=== PATIENT | female | born 1955 | race Caucasian/White ===

== ENCOUNTER 2018-01-25 14:08 | Emergency (ER) | payer MEDICARE ==
[2018-01-25] MEDS ORDERED: Ondansetron 4 MG/2 ML SDV IVPUSH ONE (14:51)
[2018-01-25] MEDS ORDERED: Pantoprazole 80 MG in Sodium Chloride 0.9% 100 ML IV ONE (14:51)
--- NOTE | 2018-01-25 14:57 | EDM.PDOC ---
ED HPI GENERAL MEDICAL PROBLEM - General Chief Complaint: Gastrointestinal Problem Stated Complaint: WEAKNESS Time Seen by Provider: 01/25/18 14:40 Source of Information: Reports: Patient, Old Records History Limitations: Reports: No Limitations - History of Present Illness INITIAL COMMENTS - FREE TEXT/NARRATIVE: Zuleika comes to [facility] ED from the Clinic with a 9 day hx of persistent nausea and vomiting, some intermittent epigastric pain, and 6# wt loss. There is no known exposure, no fever, chills or sweats. She has also had some intermittent diarrhea, without BRB. There is a remote hx of ETOHism, but patient reports no ETOH in years. There is also a remote hx of PUD and pancreatitis. She has tried no meds. - Related Data Allergies Allergy/AdvReac Type Severity Reaction Status Date / Time Sulfa (Sulfonamide Allergy Rash Verified 01/25/18 14:42 Antibiotics) Home Meds: Home Meds Acamprosate [Campral] 666 mg PO BID 10/09/13 [History] Calcium Carbonate/Vitamin D3 [Calcium 600 + Vit D 400 Softgl] 1 tab PO DAILY [History] Furosemide [Lasix] 20 mg PO BID 10/09/13 [History] Multivitamin [Multi-Vitamin Daily] 1 tab PO DAILY 10/09/13 [History] Omeprazole 20 mg PO DAILY 10/09/13 [History] PARoxetine [Paxil] 40 mg PO DAILY 10/09/13 [History] Potassium Chloride 10 meq PO DAILY 10/09/13 [History] Past Medical History Gastrointestinal History: Reports: Pancreatitis, PUD Social & Family History - Tobacco Use Smoking Status *Q: Current Every Day Smoker Years of Tobacco use: 30 Packs/Tins Daily: 0.3 - Caffeine Use Caffeine Use: Reports: Coffee - Recreational Drug Use Recreational Drug Use: No ED ROS GENERAL - Review of Systems Review Of Systems: See Below Constitutional: Reports: Malaise, Weakness, Fatigue, Decreased Appetite, Weight Loss HEENT: Reports: No Symptoms Respiratory: Reports: No Symptoms Cardiovascular: Reports: No Symptoms Endocrine: Reports: No Symptoms GI/Abdominal: Reports: Abdominal Pain, Diarrhea, Decreased Appetite, Nausea, Vomiting : Reports: No Symptoms Musculoskeletal: Reports: No Symptoms Skin: Reports: No Symptoms Neurological: Reports: No Symptoms Psychiatric: Reports: No Symptoms Hematologic/Lymphatic: Reports: No Symptoms Immunologic: Reports: No Symptoms ED EXAM, GI/ABD - Physical Exam Exam: See Below Exam Limited By: No Limitations General Appearance: Alert, WD/WN, Anxious, Mild Distress, Thin Eyes: Bilateral: Normal Appearance, EOMI Ears: Normal External Exam Nose: Normal Inspection Throat/Mouth: Normal Lips, Normal Oropharynx, Normal Voice, No Airway Compromise Head: Normocephalic Neck: Normal Inspection, Supple, Non-Tender, Full Range of Motion Respiratory/Chest: No Respiratory Distress, Lungs Clear, No Accessory Muscle Use , Chest Non-Tender Cardiovascular: Normal Peripheral Pulses, Regular Rate, Rhythm, No Edema, No Murmur GI/Abdominal Exam: Normal Bowel Sounds, Soft, No Organomegaly, No Distention, No Mass, Tender (epigastrium) (Female) Exam: Deferred Rectal (Female) Exam: Deferred Back Exam: Normal Inspection Extremities: Normal Inspection, Normal Range of Motion, Non-Tender, No Pedal Edema Neurological: Alert, Oriented, CN II-XII Intact, No Motor/Sensory Deficits Psychiatric: Normal Affect, Anxious Skin Exam: Warm, Dry, Intact, Normal Color Lymphatic: No Adenopathy Course - Vital Signs Text/Narrative:: Following assessment at the [facility] ED, efforts to start a peripheral IV took over 2+ hours to obtain IV access in the L foot with assistance from [employer]. Zuleika Lamb was administered 2L NS w 20 meq KCl over the next 4 hours, with Protonix 80 mg IV successfully. I administered Tramadol 50mg tab x 2 for abdominal pain which improved, and another KCl 20 meq soln po successfully. No further emesis was observed during visit. Lab results included CBC 10.5 gm, WBC 5900, plts normal; Na 134, K 2.6, BUN 31, Cr 0.9, Amylase 75. A follow up K 3.8 meq/l was reported before discharge. Last Recorded V/S: Last Vital Signs Temp 36.4 C 01/25/18 21:55 Pulse 86 01/25/18 21:55 Resp 17 01/25/18 21:55 BP 98/50 L 01/25/18 21:55 Pulse Ox 100 01/25/18 21:55 - Orders/Labs/Meds Orders: Active Orders 24 hr Category Date Time Status DRUG SCREEN, URINE ALERE [URCHEM] Stat Lab 01/25/18 19:51 Ordered UA W/MICROSCOPIC [URIN] Stat Lab 01/25/18 19:51 Ordered Peripheral IV Insertion Adult [OM.PC] Routine Oth 01/25/18 14:49 Ordered Labs: Laboratory Tests 01/25/18 01/25/18 01/25/18 Range/Units 15:20 15:20 19:51 WBC 5.9 (4.5-12.0) X10-3/uL RBC 3.27 (3.23-5.20) x10(6)uL Hgb 10.5 L (11.5-15.5) g/dL Hct 31.0 (30.0-51.3) % MCV 94.7 (80-96) fL MCH 32.2 (27.7-33.6) pg MCHC 34.0 (32.2-35.4) g/dL RDW 14.4 (11.5-15.5) % Plt Count 245 (125-369) X10(3)uL MPV 8.3 (7.4-10.4) fL Neut % (Auto) 54.1 (46-82) % Lymph % (Auto) 32.2 (13-37) % Clinch % (Auto) 9.6 (4-12) % Eos % (Auto) 3 (1.0-5.0) % Baso % (Auto) 2 (0-2) % Neut # (Auto) 3.1 (1.6-8.3) # Lymph # (Auto) 1.9 (0.6-5.0) # Clinch # (Auto) 0.6 (0.0-1.3) # Eos # (Auto) 0.2 (0.0-0.8) # Baso # (Auto) 0.1 (0.0-0.2) # Sodium 134 L (135-145) mmol/L Potassium 2.6 L* (3.5-5.3) mmol/L Chloride 91 L (100-110) mmol/L Carbon Dioxide 36 H (21-32) mmol/L BUN 31 H (7-18) mg/dL Creatinine 0.9 (0.55-1.02) mg/dL Est Cr Clr Drug Dosing 36.65 mL/min Estimated GFR (MDRD) > 60 (>60) BUN/Creatinine Ratio 34.4 H (9-20) Glucose 103 (80-116) mg/dL Calcium 9.8 (8.6-10.2) mg/dL Total Bilirubin 0.4 (0.1-1.3) mg/dL AST 84 H (5-25) IU/L ALT 81 H (12-36) U/L Alkaline Phosphatase 72 (56-112) IU/L Total Protein 7.2 (6.0-8.0) g/dL Albumin 4.1 (3.2-4.6) g/dL Globulin 3.1 g/dL Albumin/Globulin Ratio 1.3 Amylase 75 (25-115) U/L Urine Color Yellow (YELLOW) Urine Appearance Clear (CLEAR) Urine pH 6.0 (5.0-6.5) Ur Specific [place] 1.010 (1.010-1.025) Urine Protein Negative (NEGATIVE) mg/dL Urine Glucose (UA) Normal (NEGATIVE) mg/dL Urine Ketones Negative (NEGATIVE) mg/dL Urine Occult Blood Negative (NEGATIVE) Urine Nitrite Negative (NEGATIVE) Urine Bilirubin Small H (NEGATIVE) Urine Urobilinogen Normal (NEGATIVE) mg/dL Ur Leukocyte Esterase Moderate H (NEGATIVE) Urine RBC 0-5 (0) Urine WBC 0-5 (0) Ur Squamous Epith Cells Moderate H (NS,R,O) Urine Bacteria Few H (NS) Urine Opiates Screen (NEGATIVE) Ur Oxycodone Screen (NEGATIVE) Ur Propoxyphene Screen (NEGATIVE) Ur Barbituates Screen (NEGATIVE) Ur Tricyclics Screen (NEGATIVE) Ur Phencyclidine Scrn (NEGATIVE) Ur Amphetamine Screen (NEGATIVE) Urine MDMA Screen (NEGATIVE) U Benzodiazepines Scrn (NEGATIVE) U Cocaine Metab Screen (NEGATIVE) U Marijuana (THC) Screen (NEGATIVE) 01/25/18 01/25/18 Range/Units 19:51 21:20 WBC (4.5-12.0) X10-3/uL RBC (3.23-5.20) x10(6)uL Hgb (11.5-15.5) g/dL Hct (30.0-51.3) % MCV (80-96) fL MCH (27.7-33.6) pg MCHC (32.2-35.4) g/dL RDW (11.5-15.5) % Plt Count (125-369) X10(3)uL MPV (7.4-10.4) fL Neut % (Auto) (46-82) % Lymph % (Auto) (13-37) % Clinch % (Auto) (4-12) % Eos % (Auto) (1.0-5.0) % Baso % (Auto) (0-2) % Neut # (Auto) (1.6-8.3) # Lymph # (Auto) (0.6-5.0) # Clinch # (Auto) (0.0-1.3) # Eos # (Auto) (0.0-0.8) # Baso # (Auto) (0.0-0.2) # Sodium (135-145) mmol/L Potassium 3.8 D (3.5-5.3) mmol/L Chloride (100-110) mmol/L Carbon Dioxide (21-32) mmol/L BUN (7-18) mg/dL Creatinine (0.55-1.02) mg/dL Est Cr Clr Drug Dosing mL/min Estimated GFR (MDRD) (>60) BUN/Creatinine Ratio (9-20) Glucose (80-116) mg/dL Calcium (8.6-10.2) mg/dL Total Bilirubin (0.1-1.3) mg/dL AST (5-25) IU/L ALT (12-36) U/L Alkaline Phosphatase (56-112) IU/L Total Protein (6.0-8.0) g/dL Albumin (3.2-4.6) g/dL Globulin g/dL Albumin/Globulin Ratio Amylase (25-115) U/L Urine Color (YELLOW) Urine Appearance (CLEAR) Urine pH (5.0-6.5) Ur Specific [place] (1.010-1.025) Urine Protein (NEGATIVE) mg/dL Urine Glucose (UA) (NEGATIVE) mg/dL Urine Ketones (NEGATIVE) mg/dL Urine Occult Blood (NEGATIVE) Urine Nitrite (NEGATIVE) Urine Bilirubin (NEGATIVE) Urine Urobilinogen (NEGATIVE) mg/dL Ur Leukocyte Esterase (NEGATIVE) Urine RBC (0) Urine WBC (0) Ur Squamous Epith Cells (NS,R,O) Urine Bacteria (NS) Urine Opiates Screen Negative (NEGATIVE) Ur Oxycodone Screen Negative (NEGATIVE) Ur Propoxyphene Screen Negative (NEGATIVE) Ur Barbituates Screen Negative (NEGATIVE) Ur Tricyclics Screen Positive H (NEGATIVE) Ur Phencyclidine Scrn Negative (NEGATIVE) Ur Amphetamine Screen Negative (NEGATIVE) Urine MDMA Screen Negative (NEGATIVE) U Benzodiazepines Scrn Negative (NEGATIVE) U Cocaine Metab Screen Negative (NEGATIVE) U Marijuana (THC) Screen Negative (NEGATIVE) Meds: Medications Discontinued Medications Generic Name Dose Route Start Last Admin Trade Name Freq PRN Reason Stop Dose Admin Pantoprazole Sodium 80 mg/ 100 mls @ 200 mls/hr 01/25/18 14:51 01/25/18 18:15 Sodium Chloride IV 01/25/18 15:20 200 mls/hr .BOLUS ONE Administration Sodium Chloride 2,000 mls @ 999 mls/hr 01/25/18 15:00 Normal Saline IV ASDIRECTED ROMEL Potassium Chloride/Sodium Chloride 1,000 mls @ 999 mls/hr 01/25/18 16:15 08/02 18:05 Normal Saline With 20 Meq Kcl IV 999 mls/hr ASDIRECTED ROMEL Administration Potassium Chloride/Sodium Chloride 1,000 mls @ 999 mls/hr 01/25/18 20:15 08/02 20:20 Normal Saline With 20 Meq Kcl IV 999 mls/hr ASDIRECTED ROMEL Administration Ondansetron HCl 8 mg 01/25/18 14:51 01/25/18 18:11 Zofran IVPUSH 01/25/18 14:52 8 mg ONETIME ONE Administration Potassium Chloride 20 meq 01/25/18 19:52 01/25/18 19:57 Potassium Chloride Solution PO 01/25/18 19:53 20 meq ONETIME ONE Administration Sodium Chloride 10 ml 01/25/18 14:49 01/25/18 18:12 Saline Flush FLUSH 10 ml ASDIRECTED PRN Administration Keep Vein Open Tramadol HCl 50 mg 01/25/18 16:01 01/25/18 16:32 Ultram PO 01/25/18 16:02 50 mg ONETIME ONE Administration Tramadol HCl 50 mg 01/25/18 19:51 01/25/18 19:57 Ultram PO 01/25/18 19:52 50 mg ONETIME ONE Administration Departure - Departure Time of Disposition: 21:45 Disposition: Home, Self-Care 01 Condition: Good Clinical Impression: Hypokalemia Gastritis Qualifiers: Gastritis type: unspecified gastritis Chronicity: unspecified Gastritis bleeding: without bleeding Qualified Code(s): K29.70 - Gastritis, unspecified, without bleeding - Discharge Information Instructions: Gastritis, Adult, [id number], Hypokalemia Referrals: Aden Lemus MD [Primary Care Provider] - Forms: ED Department Discharge Additional Instructions: Take your Omeprazole as ordered. See primary care provider as necessary. - Problem List & Annotations (1) Hypokalemia SNOMED Code(s): 15648854 Code(s): E87.6 - HYPOKALEMIA Status: Acute Annotation/Comment:: Zuleika Lamb can resume KCl 10 meq tabs qd. (2) Gastritis SNOMED Code(s): 8324532 Code(s): K29.70 - GASTRITIS, UNSPECIFIED, WITHOUT BLEEDING Status: Acute Annotation/Comment:: Zuleika Lamb should continue Omeperazole 20 mg qd as directed. Qualifiers: Gastritis type: unspecified gastritis Chronicity: unspecified Gastritis bleeding: without bleeding Qualified Code(s): K29.70 - Gastritis, unspecified , without bleeding - Problem List Review Problem List Initiated/Reviewed/Updated: Yes - My Orders Last 24 Hours: My Active Orders 01/25/18 14:49 Peripheral IV Insertion Adult [OM.PC] Routine 01/25/18 19:51 DRUG SCREEN, URINE ALERE [URCHEM] Stat UA W/MICROSCOPIC [URIN] Stat - Assessment/Plan Last 24 Hours: My Active Orders 01/25/18 14:49 Peripheral IV Insertion Adult [OM.PC] Routine 01/25/18 19:51 DRUG SCREEN, URINE ALERE [URCHEM] Stat UA W/MICROSCOPIC [URIN] Stat Plan: Follow up with PCP.
[2018-01-25] MEDS ORDERED: Sodium Chloride 0.9% 2,000 ML IV SCH (15:00)
[2018-01-25] MEDS: Sodium Chloride 0.9% 10 ML Syringe FLUSH PRN ×2 (15:00→18:12)
[2018-01-25] MEDS ORDERED: traMADol 50 MG Tab PO ONE ×2 (16:01→19:51)
[2018-01-25] MEDS ORDERED: NS + KCl 20mEq/L 1,000 ML IV SCH ×2 (16:15→20:15)
[2018-01-25] MEDS ORDERED: Potassium Chloride 10% 20 MEQ/15 ML Soln 15 ML UD Cup PO ONE (19:52)
[2018-01-25 21:57] VITALS: BP 98/50
== END 2018-01-25 21:55 | disposition home or self-care (01) ==
LOC: FB.ED 14:08
DX: E87.6 Hypokalemia (principal); K29.70 Gastritis, unspecified, without bleeding; F17.210 Nicotine dependence, cigarettes, uncomplicated; Z88.2 Allergy status to sulfonamides; Z79.899 Other long term (current) drug therapy
CPT/HCPCS: 36410; 36415; 80053; 80305; 81001; 82150; 84132; 85025; 96365; 96366; 96368; 96375; 99284; A9270; C9113; J2405; J3480; J7030; J7050

== ENCOUNTER 2018-02-21 21:04 | Emergency (ER) | payer MEDICARE ==
--- NOTE | 2018-02-21 21:21 | EDM.PDOCBH ---
ED HPI GENERAL MEDICAL PROBLEM - General Stated Complaint: GENERAL Time Seen by Provider: 02/21/18 21:04 Source of Information: Reports: Patient, EMS History Limitations: Reports: Altered Mental Status - History of Present Illness INITIAL COMMENTS - FREE TEXT/NARRATIVE: 62 y.o.w.f with a h/o chronic ETOH abuse, came to the ed by EMS after her apartment neighbor called the police her room smells. Police arrived at her home and found the her apartment very hot and in disarray. EMS was called. on arrival, Pt had tardive diskinesia, was Ox3 and did not know why she was brought to the ed. Pt stated she was drinking heavily ETOH in the past. She has no family. BP 113/90 RR 23 Temp 36.8 Pulse ox 98% pulse 123. Onset Date: 02/21/18 Onset Time: 15:00 Location: Reports: Generalized Quality: Reports: Ache, Other (restless) Severity: Moderate Improves with: Reports: None Worsens with: Reports: Medication Context: Reports: Other (chronic ETOH abuse, poor food intake) Associated Symptoms: Reports: Weakness - Related Data Allergies Allergy/AdvReac Type Severity Reaction Status Date / Time Sulfa (Sulfonamide Allergy Rash Verified 01/25/18 14:42 Antibiotics) Home Meds: Home Meds Acamprosate [Campral] 666 mg PO BID 10/09/13 [History] Calcium Carbonate/Vitamin D3 [Calcium 600 + Vit D 400 Softgl] 1 tab PO DAILY [History] Furosemide [Lasix] 20 mg PO BID 10/09/13 [History] Multivitamin [Multi-Vitamin Daily] 1 tab PO DAILY 10/09/13 [History] Omeprazole 20 mg PO DAILY 10/09/13 [History] PARoxetine [Paxil] 40 mg PO DAILY 10/09/13 [History] Potassium Chloride 10 meq PO DAILY 10/09/13 [History] Past Medical History HEENT History: Reports: Impaired Vision Cardiovascular History: Reports: Other (See Below) Other Cardiovascular History: states has irregular HR at times Respiratory History: Reports: Bronchitis, Recurrent Gastrointestinal History: Reports: Pancreatitis, PUD Other Gastrointestinal History: "prolapsed colon" Neurological History: Reports: Other (See Below) Other Neuro History: DT's Psychiatric History: Reports: Addiction, Anxiety, Depression, Hallucinations, Other (See Below) Other Psychiatric History: drug and alcohol addiction Hematologic History: Reports: Other (See Below) Other Hematologic History: leukopenia - Past Surgical History GI Surgical History: Reports: Colonoscopy, EGD Social & Family History - Caffeine Use Caffeine Use: Reports: Coffee ED ROS GENERAL - Review of Systems Review Of Systems: Unable To Obtain (poor historian) ED EXAM, BEHAVIORAL HEALTH - Physical Exam Exam: See Below Exam Limited By: Altered Mental Status General Appearance: Alert, Mild Distress, Cachetic Eye Exam: Bilateral Eye: Normal Inspection Ears: Normal External Exam Nose: Normal Inspection Throat/Mouth: Normal Lips, Normal Voice, No Airway Compromise, Other (dry mucosal mmebranes) Head: Atraumatic, Normocephalic Neck: Normal Inspection, Supple, Non-Tender, Full Range of Motion Respiratory/Chest: No Respiratory Distress, Lungs Clear, Normal Breath Sounds, Chest Non-Tender Cardiovascular: Normal Peripheral Pulses, Regular Rate, Rhythm, No Edema, No Gallop, No JVD, No Murmur, No Rub GI/Abdominal: Normal Bowel Sounds, Soft, Non-Tender, No Organomegaly, No Distention, No Abnormal Bruit, No Mass, Pelvis Stable (Female) Exam: Deferred Rectal (Female) Exam: Deferred Back Exam: Normal Inspection, Full Range of Motion Extremities: Normal Inspection, Normal Range of Motion, Non-Tender, No Pedal Edema Neurological: Alert, CN II-XII Intact, Normal Cognition, No Motor/Sensory Deficits, Oriented x 3 Psychiatric: Restless (Tardive diskinesia(?)) Skin Exam: Warm, Dry, Intact, Normal color, No rash COURSE, BEHAVIORAL HEALTH COMP - Course Vital Signs: Last Vital Signs Temp 36.8 C 02/21/18 21:05 Pulse 118 H 02/21/18 21:05 Resp 23 H 02/21/18 21:05 BP 113/90 02/21/18 21:05 Pulse Ox 99 02/21/18 21:05 62 y.o.w.f with a h/o chronic ETOH abuse, came to the ed by EMS after her apartment neighbor called the police her room smells. Police arrived at her home and found the her apartment very hot and in disarray. EMS was called. on arrival, Pt had tardive diskinesia, was Ox3 and did not know why she was brought to the ed. Pt stated she was drinking heavily ETOH in the past. She has no family. BP 113/90 RR 23 Temp 36.8 Pulse ox 98% pulse 123. PE: 62 y.o.w.f with dyskinesia body movements, H/O ETOH abuse, chronic, OX3 clinically dehydrated. No H/O DM Labs: WBC 6.5 HGB 9.3 HCT 29,3 INT 1.03 BMP nl ETOH 0.03 Glc 57 Ca 7.9 Impression: Chronic ETOH abuse, Dehydration, Hypoglycemia. Hypocalcemia, dyskinsia. Tx: NS, D50, food. Reexam: Pt was doing fine, ambulating independently accu check was 117 HR 107, Pt does not take any blood sugar lowering prescribed meds. Plan: D/C with instructions Orders, Labs, Meds: Active Orders 24 hr Category Date Time Status DRUG SCREEN, URINE ALERE [URCHEM] Stat Lab 02/21/18 23:30 Ordered UA W/MICROSCOPIC [URIN] Stat Lab 02/21/18 23:30 Ordered Laboratory Tests 02/21/18 02/21/18 02/21/18 Range/Units 21:35 21:35 21:35 WBC 6.4 (4.5-12.0) X10-3/uL RBC 3.15 L (3.23-5.20) x10(6)uL Hgb 9.3 L (11.5-15.5) g/dL Hct 29.3 L (30.0-51.3) % MCV 93.0 (80-96) fL MCH 29.6 (27.7-33.6) pg MCHC 31.8 L (32.2-35.4) g/dL RDW 14.6 (11.5-15.5) % Plt Count 353 (125-369) X10(3)uL MPV 7.1 L (7.4-10.4) fL Neut % (Auto) 68.5 (46-82) % Lymph % (Auto) 22.8 (13-37) % [place] % (Auto) 6.9 (4-12) % Eos % (Auto) 1 (1.0-5.0) % Baso % (Auto) 1 (0-2) % Neut # (Auto) 4.3 (1.6-8.3) # Lymph # (Auto) 1.4 (0.6-5.0) # [place] # (Auto) 0.4 (0.0-1.3) # Eos # (Auto) 0.1 (0.0-0.8) # Baso # (Auto) 0.1 (0.0-0.2) # PT 9.8 (8.7-11.1) INR 1.01 (0.89-1.13) Sodium 144 D (135-145) mmol/L Potassium 3.5 (3.5-5.3) mmol/L Chloride 103 D (100-110) mmol/L Carbon Dioxide 27 (21-32) mmol/L BUN 10 D (7-18) mg/dL Creatinine 0.6 (0.55-1.02) mg/dL Est Cr Clr Drug Dosing TNP Estimated GFR (MDRD) > 60 (>60) BUN/Creatinine Ratio 16.7 (9-20) Glucose 57 L (80-116) mg/dL POC Glucose (80-116) mg/dL Calcium 7.9 L (8.6-10.2) mg/dL Urine Color (YELLOW) Urine Appearance (CLEAR) Urine pH (5.0-6.5) Ur Specific [place] (1.010-1.025) Urine Protein (NEGATIVE) mg/dL Urine Glucose (UA) (NEGATIVE) mg/dL Urine Ketones (NEGATIVE) mg/dL Urine Occult Blood (NEGATIVE) Urine Nitrite (NEGATIVE) Urine Bilirubin (NEGATIVE) Urine Urobilinogen (NEGATIVE) mg/dL Ur Leukocyte Esterase (NEGATIVE) Urine RBC (0) Urine WBC (0) Ur Squamous Epith Cells (NS,R,O) Urine Bacteria (NS) Urine Opiates Screen (NEGATIVE) Ur Oxycodone Screen (NEGATIVE) Ur Propoxyphene Screen (NEGATIVE) Ur Barbituates Screen (NEGATIVE) Ur Tricyclics Screen (NEGATIVE) Ur Phencyclidine Scrn (NEGATIVE) Ur Amphetamine Screen (NEGATIVE) Urine MDMA Screen (NEGATIVE) U Benzodiazepines Scrn (NEGATIVE) U Cocaine Metab Screen (NEGATIVE) U Marijuana (THC) Screen (NEGATIVE) Ethyl Alcohol (<0.03) % 02/21/18 02/21/18 02/21/18 Range/Units 21:35 23:30 23:30 WBC (4.5-12.0) X10-3/uL RBC (3.23-5.20) x10(6)uL Hgb (11.5-15.5) g/dL Hct (30.0-51.3) % MCV (80-96) fL MCH (27.7-33.6) pg MCHC (32.2-35.4) g/dL RDW (11.5-15.5) % Plt Count (125-369) X10(3)uL MPV (7.4-10.4) fL Neut % (Auto) (46-82) % Lymph % (Auto) (13-37) % [place] % (Auto) (4-12) % Eos % (Auto) (1.0-5.0) % Baso % (Auto) (0-2) % Neut # (Auto) (1.6-8.3) # Lymph # (Auto) (0.6-5.0) # [place] # (Auto) (0.0-1.3) # Eos # (Auto) (0.0-0.8) # Baso # (Auto) (0.0-0.2) # PT (8.7-11.1) INR (0.89-1.13) Sodium (135-145) mmol/L Potassium (3.5-5.3) mmol/L Chloride (100-110) mmol/L Carbon Dioxide (21-32) mmol/L BUN (7-18) mg/dL Creatinine (0.55-1.02) mg/dL Est Cr Clr Drug Dosing Estimated GFR (MDRD) (>60) BUN/Creatinine Ratio (9-20) Glucose (80-116) mg/dL POC Glucose (80-116) mg/dL Calcium (8.6-10.2) mg/dL Urine Color Yellow (YELLOW) Urine Appearance Slightly cloudy (CLEAR) Urine pH 6.5 (5.0-6.5) Ur Specific [place] 1.010 (1.010-1.025) Urine Protein Negative (NEGATIVE) mg/dL Urine Glucose (UA) 100 H (NEGATIVE) mg/dL Urine Ketones Negative (NEGATIVE) mg/dL Urine Occult Blood Negative (NEGATIVE) Urine Nitrite Negative (NEGATIVE) Urine Bilirubin Negative (NEGATIVE) Urine Urobilinogen Normal (NEGATIVE) mg/dL Ur Leukocyte Esterase Negative (NEGATIVE) Urine RBC 0-5 (0) Urine WBC 0-5 (0) Ur Squamous Epith Cells Few H (NS,R,O) Urine Bacteria Few H (NS) Urine Opiates Screen Negative (NEGATIVE) Ur Oxycodone Screen Negative (NEGATIVE) Ur Propoxyphene Screen Negative (NEGATIVE) Ur Barbituates Screen Negative (NEGATIVE) Ur Tricyclics Screen Positive H (NEGATIVE) Ur Phencyclidine Scrn Negative (NEGATIVE) Ur Amphetamine Screen Negative (NEGATIVE) Urine MDMA Screen Negative (NEGATIVE) U Benzodiazepines Scrn Negative (NEGATIVE) U Cocaine Metab Screen Negative (NEGATIVE) U Marijuana (THC) Screen Negative (NEGATIVE) Ethyl Alcohol < 0.03 (<0.03) % 02/22/18 Range/Units 00:49 WBC (4.5-12.0) X10-3/uL RBC (3.23-5.20) x10(6)uL Hgb (11.5-15.5) g/dL Hct (30.0-51.3) % MCV (80-96) fL MCH (27.7-33.6) pg MCHC (32.2-35.4) g/dL RDW (11.5-15.5) % Plt Count (125-369) X10(3)uL MPV (7.4-10.4) fL Neut % (Auto) (46-82) % Lymph % (Auto) (13-37) % [place] % (Auto) (4-12) % Eos % (Auto) (1.0-5.0) % Baso % (Auto) (0-2) % Neut # (Auto) (1.6-8.3) # Lymph # (Auto) (0.6-5.0) # [place] # (Auto) (0.0-1.3) # Eos # (Auto) (0.0-0.8) # Baso # (Auto) (0.0-0.2) # PT (8.7-11.1) INR (0.89-1.13) Sodium (135-145) mmol/L Potassium (3.5-5.3) mmol/L Chloride (100-110) mmol/L Carbon Dioxide (21-32) mmol/L BUN (7-18) mg/dL Creatinine (0.55-1.02) mg/dL Est Cr Clr Drug Dosing Estimated GFR (MDRD) (>60) BUN/Creatinine Ratio (9-20) Glucose (80-116) mg/dL POC Glucose 117 H (80-116) mg/dL Calcium (8.6-10.2) mg/dL Urine Color (YELLOW) Urine Appearance (CLEAR) Urine pH (5.0-6.5) Ur Specific [place] (1.010-1.025) Urine Protein (NEGATIVE) mg/dL Urine Glucose (UA) (NEGATIVE) mg/dL Urine Ketones (NEGATIVE) mg/dL Urine Occult Blood (NEGATIVE) Urine Nitrite (NEGATIVE) Urine Bilirubin (NEGATIVE) Urine Urobilinogen (NEGATIVE) mg/dL Ur Leukocyte Esterase (NEGATIVE) Urine RBC (0) Urine WBC (0) Ur Squamous Epith Cells (NS,R,O) Urine Bacteria (NS) Urine Opiates Screen (NEGATIVE) Ur Oxycodone Screen (NEGATIVE) Ur Propoxyphene Screen (NEGATIVE) Ur Barbituates Screen (NEGATIVE) Ur Tricyclics Screen (NEGATIVE) Ur Phencyclidine Scrn (NEGATIVE) Ur Amphetamine Screen (NEGATIVE) Urine MDMA Screen (NEGATIVE) U Benzodiazepines Scrn (NEGATIVE) U Cocaine Metab Screen (NEGATIVE) U Marijuana (THC) Screen (NEGATIVE) Ethyl Alcohol (<0.03) % Medications Discontinued Medications Generic Name Dose Route Start Last Admin Trade Name Satyaq PRN Reason Stop Dose Admin Dextrose/Water 50 ml 02/21/18 22:38 02/21/18 22:38 Dextrose 50% In Water IVPUSH 02/21/18 22:39 50 ml ONETIME STA Administration Dextrose/Water Confirm 02/21/18 22:39 02/22/18 00:24 Dextrose 50% In Water Administered 02/21/18 22:40 Not Given Dose 50 ml .ROUTE .STK-MED ONE Sodium Chloride 1,000 mls @ 999 mls/hr 02/21/18 21:21 02/22/18 00:26 Normal Saline IV 02/21/18 22:21 999 mls/hr .BOLUS ONE Administration Departure - Departure Time of Disposition: 00:49 Disposition: Home, Self-Care 01 Condition: Good Clinical Impression: H/O ETOH abuse, Dehydration, Low glucose level, Dyskinesia - Discharge Information Referrals: PCP,Unknown [Primary Care Provider] - Additional Instructions: Please do not drink ETOH which my have caused your low blood sugar. 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 - My Orders Last 24 Hours: My Active Orders 02/21/18 23:30 DRUG SCREEN, URINE ALERE [URCHEM] Stat UA W/MICROSCOPIC [URIN] Stat - Assessment/Plan Last 24 Hours: My Active Orders 02/21/18 23:30 DRUG SCREEN, URINE ALERE [URCHEM] Stat UA W/MICROSCOPIC [URIN] Stat
[2018-02-21] MEDS: Sodium Chloride 0.9% 1,000 ML IV ONE ×2 (21:40→22:41)
[2018-02-21] MEDS ORDERED: 50% Dextrose in Water 50 ML Syringe IVPUSH STA (22:38)
[2018-02-21] MEDS ORDERED: 50% Dextrose in Water 50 ML Syringe ONE (22:39)
[2018-02-21] MEDS ORDERED: Sodium Chloride 0.9% 1,000 ML IV ONE (22:41)
[2018-02-22 09:54] VITALS: BP 135/100
== END 2018-02-22 01:05 | disposition home or self-care (01) ==
LOC: FB.ED 21:04
DX: F10.10 Alcohol abuse, uncomplicated (principal); E86.0 Dehydration; E16.2 Hypoglycemia, unspecified; G24.9 Dystonia, unspecified; E83.51 Hypocalcemia; F41.9 Anxiety disorder, unspecified; F32.9 Major depressive disorder, single episode, unspecified; Z88.2 Allergy status to sulfonamides; Z79.899 Other long term (current) drug therapy; Y90.0 Blood alcohol level of less than 20 mg/100 ml
CPT/HCPCS: 36415; 80048; 80305; 81001; 82962; 85025; 85610; 99283; 99284; G0480; J7030

== ENCOUNTER 2018-11-21 10:13 | Inpatient (IN) | payer MEDICARE, OTHER ==
--- NOTE | 2018-11-21 10:58 | EDM.PDOC ---
ED HPI GENERAL MEDICAL PROBLEM - General Chief Complaint: Skin Complaint Stated Complaint: RASH Time Seen by Provider: 11/21/18 10:40 Source of Information: Reports: Patient, Family, Old Records - History of Present Illness INITIAL COMMENTS - FREE TEXT/NARRATIVE: Zuleika comes in by EMS with complaints of a painful rash involving the buttocks and perineum reportedly over the past 3 days day. She has had some urinary incontinence and diarrhea by self report, although patient is sketchy about further details. Bruises are visible on the R>L legs, poor body hygiene. 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 She has 2 brothers who live in the [place] area, but no other near relatives in the local area. - Related Data Allergies Allergy/AdvReac Type Severity Reaction Status Date / Time Sulfa (Sulfonamide Allergy Rash Verified 11/21/18 10:35 Antibiotics) Home Meds: Home Meds Acamprosate [Campral] 666 mg PO BID 10/09/13 [History] Calcium Carbonate/Vitamin D3 [Calcium 600 + Vit D 400 Softgl] 1 tab PO DAILY [History] Furosemide [Lasix] 20 mg PO BID 10/09/13 [History] Multivitamin [Multi-Vitamin Daily] 1 tab PO DAILY 10/09/13 [History] Potassium Chloride 20 meq PO DAILY 10/09/13 [History] Aspirin 81 mg PO BID 07/26/18 [History] DULoxetine [Cymbalta] 30 mg PO DAILY 07/26/18 [History] Ondansetron [Zofran ODT] 4 mg PO TID PRN 07/26/18 [History] Past Medical History HEENT History: Reports: Cataract, Impaired Vision Cardiovascular History: Reports: Hypertension, Other (See Below) Other Cardiovascular History: states has irregular HR at times Respiratory History: Reports: Bronchitis, Recurrent, Pneumonia, Recurrent, Other (See Below) Other Respiratory History: TOBACCO ABUSE Gastrointestinal History: Reports: GERD, Pancreatitis, PUD Other Gastrointestinal History: "prolapsed colon" Genitourinary History: Reports: Urinary Incontinence Musculoskeletal History: Reports: Arthritis, Osteoporosis, Other (See Below) Other Musculoskeletal History: MOVEMENT DISORDER, ATAXIA Neurological History: Reports: Other (See Below) Other Neuro History: DT's, MOVEMENT DISORDER Psychiatric History: Reports: Addiction, Anxiety, Depression, Hallucinations, Other (See Below) Other Psychiatric History: drug and alcohol addiction Endocrine/Metabolic History: Reports: Osteoporosis Hematologic History: Reports: Other (See Below) Other Hematologic History: leukopenia, THROMBOCYTOPENIA Immunologic History: Reports: None Oncologic (Cancer) History: Reports: None Dermatologic History: Reports: None - Past Surgical History Head Surgeries/Procedures: Reports: None HEENT Surgical History: Reports: None Cardiovascular Surgical History: Reports: None Respiratory Surgical History: Reports: None GI Surgical History: Reports: Colonoscopy, EGD, Other (See Below) Other GI Surgeries/Procedures: HX OF FEEDING TUBE - HAS BEEN REMOVED. Female Surgical History: Reports: None Endocrine Surgical History: Reports: None Neurological Surgical History: Reports: None Musculoskeletal Surgical History: Reports: Other (See Below) Other Musculoskeletal Surgeries/Procedures:: TOE SURGERY Oncologic Surgical History: Reports: None Dermatological Surgical History: Reports: None Social & Family History - Family History Family Medical History: Noncontributory - Caffeine Use Caffeine Use: Reports: Coffee Other Caffeine Use: 2-3 CUPS DAILY ED ROS GENERAL - Review of Systems Review Of Systems: Unable To Obtain (not a reliable historian) ED EXAM, SKIN/RASH Exam: See Below Exam Limited By: Other (preoccupied with skin rash pain) General Appearance: Alert, WD/WN, Anxious, Mild Distress, Thin Eye Exam: Bilateral Eye: EOMI, PERRL Ears: Normal External Exam Nose: Normal Inspection Throat/Mouth: No Airway Compromise, Other (generalized mucosal atrophy, smooth tongue) Head: Normocephalic Neck: Normal Inspection, Non-Tender Respiratory/Chest: No Respiratory Distress, No Accessory Muscle Use, Chest Non- Tender, Decreased Breath Sounds, Crackles Cardiovascular: Regular Rate, Rhythm, No JVD, No Murmur GI/Abdominal: Normal Bowel Sounds, Soft, Non-Tender, No Organomegaly, No Distention, No Mass (Female) Exam: Other (inflammation of perineum) Rectal (Female) Exam: Other (inflammation of buttocks, decubitus overlying sacrum) Back Exam: Other (decubitus overlying sacrum) Extremities: Other (old ecchymoses overlying R>L legs, disuse atrophy) Neurological: Alert, CN II-XII Intact, Slow to Respond, Abnormal Gait, Other ( anxious, impaired memory recall, ) Psychiatric: Anxious Skin: Rash (inflammatory rash overlying perineum and buttocks) Course - Vital Signs Text/Narrative:: Following assessment, Zuleika Lamb received a bath and soothing creme applied to excoriated areas. The decubitus will need additional treatment. Case was discussed with [facility] who filed a vulnerable adult status with [facility]. Case discussed with hospitalist who will admit for managment of decubitus and skin excoriations pending disposition. Last Recorded V/S: Last Vital Signs Temp 36.8 C 11/21/18 10:20 Pulse 114 H 11/21/18 10:20 Resp 18 11/21/18 10:20 BP 131/78 11/21/18 10:20 Pulse Ox 100 11/21/18 10:20 - Orders/Labs/Meds Orders: Active Orders 24 hr Category Date Time Status EKG Documentation Completion [RC] ASDIRECTED Care 11/21/18 10:51 Active FOLATE (FOLIC ACID), SERUM Urgent Lab 11/21/18 11:18 Received IRON AND TIBC Urgent Lab 11/21/18 11:18 Received URINALYSIS W/MICROSCOPIC [UA W/MICROSCOPIC] [URIN] Stat Lab 11/21/18 12:55 Received EKG 12 Lead [EK] Routine Ther 11/21/18 10:50 Ordered Labs: Laboratory Tests 11/21/18 11/21/18 11/21/18 Range/Units 11:18 11:18 11:18 WBC 6.7 (4.5-12.0) X10-3/uL RBC 3.60 (3.23-5.20) x10(6)uL Hgb 9.3 L (11.5-15.5) g/dL Hct 28.6 L (30.0-51.3) % MCV 79.4 L (80-96) fL MCH 25.8 L (27.7-33.6) pg MCHC 32.5 (32.2-35.4) g/dL RDW 19.6 H (11.5-15.5) % Plt Count 312 (125-369) X10(3)uL MPV 7.8 (7.4-10.4) fL Add Manual Diff Yes Neutrophils % (Manual) 58 (46-82) % Lymphocytes % (Manual) 30 (13-37) % Monocytes % (Manual) 12 (4-12) % Anisocytosis Moderate H Sodium 133 L D (135-145) mmol/L Potassium 3.4 L (3.5-5.3) mmol/L Chloride 95 L D (100-110) mmol/L Carbon Dioxide 22 (21-32) mmol/L BUN 14 (7-18) mg/dL Creatinine 0.7 (0.55-1.02) mg/dL Est Cr Clr Drug Dosing TNP Estimated GFR (MDRD) > 60 (>60) BUN/Creatinine Ratio 20.0 (9-20) Glucose 110 (80-116) mg/dL Calcium 8.4 L (8.6-10.2) mg/dL Magnesium 1.9 (1.8-2.5) mg/dL Total Bilirubin 0.5 (0.1-1.3) mg/dL AST 70 H D (5-25) IU/L ALT 55 H D (12-36) U/L Alkaline Phosphatase 101 (56-112) IU/L Troponin I < 0.017 L (<0.017-0.056) ng/mL Total Protein 6.4 (6.0-8.0) g/dL Albumin 2.6 L (3.2-4.6) g/dL Globulin 3.8 g/dL Albumin/Globulin Ratio 0.7 Vitamin B12 (193-986) pg/mL Ethyl Alcohol (<0.03) % 11/21/18 11/21/18 Range/Units 11:18 11:18 WBC (4.5-12.0) X10-3/uL RBC (3.23-5.20) x10(6)uL Hgb (11.5-15.5) g/dL Hct (30.0-51.3) % MCV (80-96) fL MCH (27.7-33.6) pg MCHC (32.2-35.4) g/dL RDW (11.5-15.5) % Plt Count (125-369) X10(3)uL MPV (7.4-10.4) fL Add Manual Diff Neutrophils % (Manual) (46-82) % Lymphocytes % (Manual) (13-37) % Monocytes % (Manual) (4-12) % Anisocytosis Sodium (135-145) mmol/L Potassium (3.5-5.3) mmol/L Chloride (100-110) mmol/L Carbon Dioxide (21-32) mmol/L BUN (7-18) mg/dL Creatinine (0.55-1.02) mg/dL Est Cr Clr Drug Dosing Estimated GFR (MDRD) (>60) BUN/Creatinine Ratio (9-20) Glucose (80-116) mg/dL Calcium (8.6-10.2) mg/dL Magnesium (1.8-2.5) mg/dL Total Bilirubin (0.1-1.3) mg/dL AST (5-25) IU/L ALT (12-36) U/L Alkaline Phosphatase (56-112) IU/L Troponin I (<0.017-0.056) ng/mL Total Protein (6.0-8.0) g/dL Albumin (3.2-4.6) g/dL Globulin g/dL Albumin/Globulin Ratio Vitamin B12 1889 H (193-986) pg/mL Ethyl Alcohol < 0.03 (<0.03) % Departure - Departure Time of Disposition: 13:20 Disposition: Admitted As Inpatient 65 Condition: Fair Clinical Impression: Decubitus skin ulcer Qualifiers: Pressure injury location: sacral region Pressure injury stage: unspecified pressure injury stage Qualified Code(s): L89.159 - Pressure ulcer of sacral region, unspecified stage - Discharge Information *PRESCRIPTION DRUG MONITORING PROGRAM REVIEWED*: Not Applicable *COPY OF PRESCRIPTION DRUG MONITORING REPORT IN PATIENT KISHAN: Not Applicable Referrals: Aden Lemus MD [Primary Care Provider] - Forms: ED Department Discharge - Problem List & Annotations (1) Decubitus skin ulcer SNOMED Code(s): 570033872 Code(s): L89.90 - PRESSURE ULCER OF UNSPECIFIED SITE, UNSPECIFIED STAGE Status: Acute Current Visit: Yes Annotation/Comment:: Admit to IP, skin managment, and disposition with Rashel DUKE. Qualifiers: Pressure injury location: sacral region Pressure injury stage: unspecified pressure injury stage Qualified Code(s): L89.159 - Pressure ulcer of sacral region, unspecified stage - Problem List Review Problem List Initiated/Reviewed/Updated: Yes - My Orders Last 24 Hours: My Active Orders 11/21/18 10:50 EKG 12 Lead [EK] Routine 11/21/18 10:51 EKG Documentation Completion [RC] ASDIRECTED 11/21/18 11:18 FOLATE (FOLIC ACID), SERUM Urgent IRON AND TIBC Urgent 11/21/18 12:55 URINALYSIS W/MICROSCOPIC [UA W/MICROSCOPIC] [URIN] Stat - Assessment/Plan Last 24 Hours: My Active Orders 11/21/18 10:50 EKG 12 Lead [EK] Routine 11/21/18 10:51 EKG Documentation Completion [RC] ASDIRECTED 11/21/18 11:18 FOLATE (FOLIC ACID), SERUM Urgent IRON AND TIBC Urgent 11/21/18 12:55 URINALYSIS W/MICROSCOPIC [UA W/MICROSCOPIC] [URIN] Stat Plan: Hospitalist to see.
[2018-11-21] MEDS: traMADol 50 MG Tab PO PRN ×2 (15:35→21:14)
[2018-11-21] MEDS ORDERED: Ondansetron 4 MG Tab.DIS PO PRN (17:07)
[2018-11-21] MEDS: Sodium Chloride 0.9% 10 ML Syringe FLUSH PRN (17:47)
[2018-11-21] MEDS: Sodium Chloride 0.9% 1,000 ML IV SCH (17:48)
[2018-11-21] MEDS: Aspirin 81 MG Tab.Chew PO SCH (21:15)
[2018-11-22] MEDS: Sodium Chloride 0.9% 1,000 ML IV SCH (02:57)
[2018-11-22] MEDS: traMADol 50 MG Tab PO PRN (05:21)
[2018-11-22 08:20] LABS: IRON BIND.CAP.(TIBC) 268 ug/dL (250-450); IRON SATURATION 4 % (15-55); IRON, SERUM 12 ug/dL (27-139); UIBC 256 ug/dL (118-369)
[2018-11-22] MEDS ORDERED: Diphtheria,Pertussis(Acell),Tetanus Vaccine 0.5 ML SDV IM ONE (08:32)
[2018-11-22] MEDS ORDERED: cefTRIAXone 1 GM Vial IVPUSH SCH (08:45)
--- NOTE | 2018-11-22 08:46 | PCM.HP ---
H&P History of Present Illness - General Date of Service: 11/22/18 Admit Problem/Dx: Admission Diagnosis/Problem Admission Diagnosis/Problem Decubitus ulcer of sacral region Source of Information: Patient History Limitations: Reports: No Limitations - History of Present Illness Initial Comments - Free Text/Narative: Jing is a 62-year-old female who came to the ER with a severely painful rash to buttocks and perineum. Unfortunately,she is a poor historian. She was brought in by ambulance, apparently found in the poor condition of surroundings. She complains that the rash was insidious in onset,very painful and occasioned by diarrhea and incontinence of urine. She denies fever, chills, neither does she have any dysuria. She does have vomiting which is chronic, possibly related to cyclic vomiting. She also has chronic abdominal pain, due to chronic pancreatitis. Has a h/o of ETOHism, but She claims to be sober from alcohol use for the last 2 years. 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 She is not compliant with her medications. She lives alone. Bilateral Buttock Pain Score (Numeric/FACES): 6 - Related Data Allergies/Adverse Reactions: Allergies Allergy/AdvReac Type Severity Reaction Status Date / Time Sulfa (Sulfonamide Allergy Rash Verified 11/21/18 10:35 Antibiotics) Home Medications: Home Meds Acamprosate [Campral] 666 mg PO BID 10/09/13 [History] Calcium Carbonate/Vitamin D3 [Calcium 600 + Vit D 400 Softgl] 1 tab PO DAILY [History] Furosemide [Lasix] 20 mg PO BID 10/09/13 [History] Multivitamin [Multi-Vitamin Daily] 1 tab PO DAILY 10/09/13 [History] Potassium Chloride 20 meq PO DAILY 10/09/13 [History] Aspirin 81 mg PO BID 07/26/18 [History] Ondansetron [Zofran ODT] 4 mg PO TID PRN 07/26/18 [History] DULoxetine [Cymbalta] 20 mg PO DAILY 11/21/18 [History] Past Medical History HEENT History: Reports: Cataract, Impaired Vision Cardiovascular History: Reports: Hypertension, Other (See Below) Other Cardiovascular History: states has irregular HR at times Respiratory History: Reports: Bronchitis, Recurrent, Pneumonia, Recurrent, Other (See Below) Other Respiratory History: TOBACCO ABUSE Gastrointestinal History: Reports: GERD, Pancreatitis, PUD Other Gastrointestinal History: "prolapsed colon" Genitourinary History: Reports: Urinary Incontinence Musculoskeletal History: Reports: Arthritis, Osteoporosis, Other (See Below) Other Musculoskeletal History: MOVEMENT DISORDER, ATAXIA Neurological History: Reports: Other (See Below) Other Neuro History: DT's, MOVEMENT DISORDER Psychiatric History: Reports: Addiction, Anxiety, Depression, Hallucinations, Other (See Below) Other Psychiatric History: drug and alcohol addiction Endocrine/Metabolic History: Reports: Osteoporosis Hematologic History: Reports: Other (See Below) Other Hematologic History: leukopenia, THROMBOCYTOPENIA Immunologic History: Reports: None Oncologic (Cancer) History: Reports: None Dermatologic History: Reports: None - Past Surgical History Head Surgeries/Procedures: Reports: None HEENT Surgical History: Reports: None Cardiovascular Surgical History: Reports: None Respiratory Surgical History: Reports: None GI Surgical History: Reports: Colonoscopy, EGD, Other (See Below) Other GI Surgeries/Procedures: HX OF FEEDING TUBE - HAS BEEN REMOVED. Female Surgical History: Reports: None Endocrine Surgical History: Reports: None Neurological Surgical History: Reports: None Musculoskeletal Surgical History: Reports: Other (See Below) Other Musculoskeletal Surgeries/Procedures:: TOE SURGERY Oncologic Surgical History: Reports: None Dermatological Surgical History: Reports: None Social & Family History - Family History Family Medical History: Noncontributory - Tobacco Use Smoking Status *Q: Former Smoker Years of Tobacco use: 45 Used Tobacco, but Quit: Yes Month/Year Tobacco Last Used: 2017 Second Hand Smoke Exposure: No - Caffeine Use Caffeine Use: Reports: Coffee Other Caffeine Use: 2-3 CUPS DAILY - Alcohol Use Days Per Week of Alcohol Use: 7 Number of Drinks Per Day: 5 Total Drinks Per Week: 35 - Recreational Drug Use Recreational Drug Use: No H&P Review of Systems - Review of Systems: Review Of Systems: ROS reveals no pertinent complaints other than HPI. Exam - Exam Exam: See Below - Vital Signs Vital Signs: Last Vital Signs Temp 97.4 F 11/22/18 07:41 Pulse 95 11/22/18 07:41 Resp 20 11/22/18 07:41 BP 110/97 H 11/22/18 07:41 Pulse Ox 98 11/22/18 07:41 Weight: 41.776 kg - Exam General: Alert HEENT: PERRLA, Conjunctiva Clear Neck: Supple Lungs: Clear to Auscultation, Crackles Cardiovascular: Regular Rate GI/Abdominal Exam: Normal Bowel Sounds, No Distention, No Mass, Tender. No: Mass, Hepatomegaly (Female) Exam: No: Vaginal Lesions Rectal (Female) Exam: Tenderness Back Exam: Normal Inspection Extremities: Normal Inspection, No Pedal Edema Skin: Warm, Rash, Decubitis, Other (She is excoriation, peeling and redness of the entire skin of the perineum and sacral area exposing the subcutaneous cutaneous tissue and dermis. 6. Tender to palpation.) Neurological: Cranial Nerves Intact, Abnormal Gait. No: Normal Gait, Normal Speech Neuro Extensive - Mental Status: Alert, Oriented x3, Normal Mood/Affect, Memory Intact Neuro Extensive - Motor, Sensory, Reflexes: CN II-XII Intact Psychiatric: Alert, Normal Affect - Patient Data Lab Results Last 24 hrs: Laboratory Results - last 24 hr 11/21/18 11/21/18 11/21/18 Range/Units 11:18 11:18 11:18 WBC 6.7 (4.5-12.0) X10-3/uL RBC 3.60 (3.23-5.20) x10(6)uL Hgb 9.3 L (11.5-15.5) g/dL Hct 28.6 L (30.0-51.3) % MCV 79.4 L (80-96) fL MCH 25.8 L (27.7-33.6) pg MCHC 32.5 (32.2-35.4) g/dL RDW 19.6 H (11.5-15.5) % Plt Count 312 (125-369) X10(3)uL MPV 7.8 (7.4-10.4) fL Add Manual Diff Yes Neutrophils % (Manual) 58 (46-82) % Band Neutrophils % (0-6) % Lymphocytes % (Manual) 30 (13-37) % Monocytes % (Manual) 12 (4-12) % Eosinophils % (Manual) (0-5) % Anisocytosis Moderate H Sodium 133 L D (135-145) mmol/L Potassium 3.4 L (3.5-5.3) mmol/L Chloride 95 L D (100-110) mmol/L Carbon Dioxide 22 (21-32) mmol/L BUN 14 (7-18) mg/dL Creatinine 0.7 (0.55-1.02) mg/dL Est Cr Clr Drug Dosing TNP Estimated GFR (MDRD) > 60 (>60) BUN/Creatinine Ratio 20.0 (9-20) Glucose 110 (80-116) mg/dL Calcium 8.4 L (8.6-10.2) mg/dL Magnesium 1.9 (1.8-2.5) mg/dL Iron (27-139) ug/dL TIBC (250-450) ug/dL Iron Saturation (15-55) % Unsaturated IBC (118-369) ug/dL Total Bilirubin 0.5 (0.1-1.3) mg/dL AST 70 H D (5-25) IU/L ALT 55 H D (12-36) U/L Alkaline Phosphatase 101 (56-112) IU/L Troponin I < 0.017 L (<0.017-0.056) ng/mL Total Protein 6.4 (6.0-8.0) g/dL Albumin 2.6 L (3.2-4.6) g/dL Globulin 3.8 g/dL Albumin/Globulin Ratio 0.7 Vitamin B12 (193-986) pg/mL Folate (>3.0) ng/mL Urine Color (YELLOW) Urine Appearance (CLEAR) Urine pH (5.0-6.5) Ur Specific [place] (1.010-1.025) Urine Protein (NEGATIVE) mg/dL Urine Glucose (UA) (NORMAL) mg/dL Urine Ketones (NEGATIVE) mg/dL Urine Occult Blood (NEGATIVE) Urine Nitrite (NEGATIVE) Urine Bilirubin (NEGATIVE) Urine Urobilinogen (NEGATIVE) mg/dL Ur Leukocyte Esterase (NEGATIVE) Urine RBC (0-5) Urine WBC (0-5) Ur Squamous Epith Cells (NS,R,O) Urine Bacteria (NS) Ethyl Alcohol (<0.03) % 11/21/18 11/21/18 11/21/18 Range/Units 11:18 11:18 11:18 WBC (4.5-12.0) X10-3/uL RBC (3.23-5.20) x10(6)uL Hgb (11.5-15.5) g/dL Hct (30.0-51.3) % MCV (80-96) fL MCH (27.7-33.6) pg MCHC (32.2-35.4) g/dL RDW (11.5-15.5) % Plt Count (125-369) X10(3)uL MPV (7.4-10.4) fL Add Manual Diff Neutrophils % (Manual) (46-82) % Band Neutrophils % (0-6) % Lymphocytes % (Manual) (13-37) % Monocytes % (Manual) (4-12) % Eosinophils % (Manual) (0-5) % Anisocytosis Sodium (135-145) mmol/L Potassium (3.5-5.3) mmol/L Chloride (100-110) mmol/L Carbon Dioxide (21-32) mmol/L BUN (7-18) mg/dL Creatinine (0.55-1.02) mg/dL Est Cr Clr Drug Dosing Estimated GFR (MDRD) (>60) BUN/Creatinine Ratio (9-20) Glucose (80-116) mg/dL Calcium (8.6-10.2) mg/dL Magnesium (1.8-2.5) mg/dL Iron 12 L (27-139) ug/dL TIBC 268 (250-450) ug/dL Iron Saturation 4 L (15-55) % Unsaturated IBC 256 (118-369) ug/dL Total Bilirubin (0.1-1.3) mg/dL AST (5-25) IU/L ALT (12-36) U/L Alkaline Phosphatase (56-112) IU/L Troponin I (<0.017-0.056) ng/mL Total Protein (6.0-8.0) g/dL Albumin (3.2-4.6) g/dL Globulin g/dL Albumin/Globulin Ratio Vitamin B12 1889 H (193-986) pg/mL Folate (>3.0) ng/mL Urine Color (YELLOW) Urine Appearance (CLEAR) Urine pH (5.0-6.5) Ur Specific [place] (1.010-1.025) Urine Protein (NEGATIVE) mg/dL Urine Glucose (UA) (NORMAL) mg/dL Urine Ketones (NEGATIVE) mg/dL Urine Occult Blood (NEGATIVE) Urine Nitrite (NEGATIVE) Urine Bilirubin (NEGATIVE) Urine Urobilinogen (NEGATIVE) mg/dL Ur Leukocyte Esterase (NEGATIVE) Urine RBC (0-5) Urine WBC (0-5) Ur Squamous Epith Cells (NS,R,O) Urine Bacteria (NS) Ethyl Alcohol < 0.03 (<0.03) % 11/21/18 11/21/18 11/22/18 Range/Units 11:18 12:55 06:12 WBC 5.5 (4.5-12.0) X10-3/uL RBC 3.23 (3.23-5.20) x10(6)uL Hgb 8.3 L (11.5-15.5) g/dL Hct 26.2 L (30.0-51.3) % MCV 81.3 (80-96) fL MCH 25.7 L (27.7-33.6) pg MCHC 31.6 L (32.2-35.4) g/dL RDW 20.1 H (11.5-15.5) % Plt Count 292 (125-369) X10(3)uL MPV 7.2 L (7.4-10.4) fL Add Manual Diff Yes Neutrophils % (Manual) 48 (46-82) % Band Neutrophils % 3 (0-6) % Lymphocytes % (Manual) 34 (13-37) % Monocytes % (Manual) 13 H (4-12) % Eosinophils % (Manual) 2 (0-5) % Anisocytosis Many H Sodium (135-145) mmol/L Potassium (3.5-5.3) mmol/L Chloride (100-110) mmol/L Carbon Dioxide (21-32) mmol/L BUN (7-18) mg/dL Creatinine (0.55-1.02) mg/dL Est Cr Clr Drug Dosing Estimated GFR (MDRD) (>60) BUN/Creatinine Ratio (9-20) Glucose (80-116) mg/dL Calcium (8.6-10.2) mg/dL Magnesium (1.8-2.5) mg/dL Iron (27-139) ug/dL TIBC (250-450) ug/dL Iron Saturation (15-55) % Unsaturated IBC (118-369) ug/dL Total Bilirubin (0.1-1.3) mg/dL AST (5-25) IU/L ALT (12-36) U/L Alkaline Phosphatase (56-112) IU/L Troponin I (<0.017-0.056) ng/mL Total Protein (6.0-8.0) g/dL Albumin (3.2-4.6) g/dL Globulin g/dL Albumin/Globulin Ratio Vitamin B12 (193-986) pg/mL Folate >20.0 (>3.0) ng/mL Urine Color Yellow (YELLOW) Urine Appearance Slightly cloudy (CLEAR) Urine pH 6.0 (5.0-6.5) Ur Specific [place] 1.010 (1.010-1.025) Urine Protein 30 H (NEGATIVE) mg/dL Urine Glucose (UA) Normal (NORMAL) mg/dL Urine Ketones 15 H (NEGATIVE) mg/dL Urine Occult Blood Trace (NEGATIVE) Urine Nitrite Negative (NEGATIVE) Urine Bilirubin Small H (NEGATIVE) Urine Urobilinogen Normal (NEGATIVE) mg/dL Ur Leukocyte Esterase Small H (NEGATIVE) Urine RBC 0-5 (0-5) Urine WBC 5-10 H (0-5) Ur Squamous Epith Cells Moderate H (NS,R,O) Urine Bacteria Moderate H (NS) Ethyl Alcohol (<0.03) % 11/22/18 Range/Units 06:12 WBC (4.5-12.0) X10-3/uL RBC (3.23-5.20) x10(6)uL Hgb (11.5-15.5) g/dL Hct (30.0-51.3) % MCV (80-96) fL MCH (27.7-33.6) pg MCHC (32.2-35.4) g/dL RDW (11.5-15.5) % Plt Count (125-369) X10(3)uL MPV (7.4-10.4) fL Add Manual Diff Neutrophils % (Manual) (46-82) % Band Neutrophils % (0-6) % Lymphocytes % (Manual) (13-37) % Monocytes % (Manual) (4-12) % Eosinophils % (Manual) (0-5) % Anisocytosis Sodium 135 (135-145) mmol/L Potassium 3.1 L (3.5-5.3) mmol/L Chloride 100 D (100-110) mmol/L Carbon Dioxide 24 (21-32) mmol/L BUN 9 (7-18) mg/dL Creatinine 0.6 (0.55-1.02) mg/dL Est Cr Clr Drug Dosing 63.29 Estimated GFR (MDRD) > 60 (>60) BUN/Creatinine Ratio 15.0 (9-20) Glucose 101 (80-116) mg/dL Calcium 7.8 L (8.6-10.2) mg/dL Magnesium (1.8-2.5) mg/dL Iron (27-139) ug/dL TIBC (250-450) ug/dL Iron Saturation (15-55) % Unsaturated IBC (118-369) ug/dL Total Bilirubin (0.1-1.3) mg/dL AST (5-25) IU/L ALT (12-36) U/L Alkaline Phosphatase (56-112) IU/L Troponin I (<0.017-0.056) ng/mL Total Protein (6.0-8.0) g/dL Albumin (3.2-4.6) g/dL Globulin g/dL Albumin/Globulin Ratio Vitamin B12 (193-986) pg/mL Folate (>3.0) ng/mL Urine Color (YELLOW) Urine Appearance (CLEAR) Urine pH (5.0-6.5) Ur Specific [place] (1.010-1.025) Urine Protein (NEGATIVE) mg/dL Urine Glucose (UA) (NORMAL) mg/dL Urine Ketones (NEGATIVE) mg/dL Urine Occult Blood (NEGATIVE) Urine Nitrite (NEGATIVE) Urine Bilirubin (NEGATIVE) Urine Urobilinogen (NEGATIVE) mg/dL Ur Leukocyte Esterase (NEGATIVE) Urine RBC (0-5) Urine WBC (0-5) Ur Squamous Epith Cells (NS,R,O) Urine Bacteria (NS) Ethyl Alcohol (<0.03) % Result Diagrams: 11/22/18 06:12 11/22/18 06:12 - Problem List (1) Excoriated rash SNOMED Code(s): 894644897 ICD Code: R21 - RASH AND OTHER NONSPECIFIC SKIN ERUPTION Status: Acute Current Visit: Yes (2) MDD (major depressive disorder) SNOMED Code(s): 337012053 ICD Code: F32.9 - MAJOR DEPRESSIVE DISORDER, SINGLE EPISODE, UNSPECIFIED Status: Acute Current Visit: Yes Qualifiers: Major depression recurrence: recurrent Active/Remission status: currently active Psychotic features: without psychotic features (3) Cyclical vomiting Status: Acute Current Visit: Yes Qualifiers: Vomiting Intractability: non-intractable (4) Bacteriuria SNOMED Code(s): 16044268 ICD Code: R82.71 - BACTERIURIA Status: Acute Current Visit: Yes (5) Central pontine myelinolysis SNOMED Code(s): 2966474 ICD Code: G37.2 - CENTRAL PONTINE MYELINOLYSIS Status: Chronic Current Visit: Yes (6) Chronic abdominal pain SNOMED Code(s): 862412222 ICD Code: R10.9 - UNSPECIFIED ABDOMINAL PAIN; G89.29 - OTHER CHRONIC PAIN Status: Chronic Current Visit: Yes (7) Decubitus skin ulcer SNOMED Code(s): 651629282 ICD Code: L89.90 - PRESSURE ULCER OF UNSPECIFIED SITE, UNSPECIFIED STAGE Status: Acute Current Visit: Yes Problem Details: Admit to IP, skin managment, and disposition with [place] [facility]. Qualifiers: Pressure injury location: lower back Pressure injury stage: unspecified pressure injury stage Qualified Code(s): L89.159 - Pressure ulcer of sacral region, unspecified stage (8) H/O ETOH abuse SNOMED Code(s): 620420933 ICD Code: Z87.898 - PERSONAL HISTORY OF OTHER SPECIFIED CONDITIONS Status: Acute Current Visit: No (9) Hypokalemia SNOMED Code(s): 67388139 ICD Code: E87.6 - HYPOKALEMIA Status: Acute Current Visit: No Problem Details: Jing Lamb can resume KCl 10 meq tabs qd. Problem List Initiated/Reviewed/Updated: Yes Orders Last 24hrs: Active Orders 24 hr Category Date Time Status Patient Status [ADT] Routine ADT 11/21/18 17:05 Active Insert Urinary Catheter [OM.PC] Q24H Care 11/22/18 08:45 Ordered Oxygen Therapy [RC] PRN Care 11/21/18 17:05 Active Up With Assistance [RC] ASDIRECTED Care 11/21/18 17:05 Active Urinary Catheter Assessment [RC] QSHIFT Care 11/22/18 08:32 Active VTE/DVT Education [RC] Per Unit Routine Care 11/21/18 17:05 Active Vaccines to be Administered [RC] PER UNIT ROUTINE Care 11/22/18 08:32 Active Vital Signs [RC] 00,04,08,12,16,20 Care 11/21/18 17:05 Active OT Evaluation and Treatment [CONS] Routine Cons 11/21/18 17:05 Active PT Evaluation and Treatment [CONS] Routine Cons 11/21/18 17:05 Active CULTURE URINE [RM] Routine Lab 11/21/18 12:55 Received Aspirin Med 11/21/18 21:00 Active 81 mg PO BID Bacitracin [Bacitracin Oint] Med 11/22/18 09:00 Ordered 1 gm TOP TID Calcium Carbonate/Vitamin D3 [Calcium Carbonate/Vitamin Med 11/22/18 09:00 Active D 1250 MG-200 Unit] 1 tab PO DAILY DULoxetine [Cymbalta] Med 11/22/18 09:00 Active 20 mg PO DAILY Diphth,Pertuss(Acell),Tet Vac [Adacel] Med 11/22/18 08:32 Once 0.5 ml IM .ONCE ONE Multivitamins [Tab-A-Jocelin] Med 11/22/18 09:00 Active 1 tab PO DAILY Ondansetron [Zofran ODT] Med 11/21/18 17:07 Active 4 mg PO TID PRN Sodium Chloride 0.9% [Saline Flush] Med 11/21/18 17:05 Active 10 ml FLUSH ASDIRECTED PRN cefTRIAXone [Rocephin] Med 11/22/18 08:45 Ordered 1 gm IVPUSH Q24H traMADol [Ultram] Med 11/21/18 15:22 Active 50 mg PO TID PRN Peripheral IV Insertion Adult [OM.PC] Routine Oth 11/21/18 17:05 Ordered Code Status [Resuscitation Status] Routine Resus Stat 11/21/18 14:36 Ordered EKG 12 Lead [EK] Routine Ther 11/21/18 10:50 Stop Req Medication Orders Aspirin (Aspirin) 81 mg PO BID ROMEL Last Admin: 11/21/18 21:15 Dose: 81 mg Bacitracin (Bacitracin Oint) 1 gm TOP TID ROMEL Calcium Carbonate (Calcium Carbonate/Vitamin D 1250 Mg-200 Unit) 1 tab PO DAILY [facility] Ceftriaxone Sodium (Rocephin) 1 gm IVPUSH Q24H ROMEL Diphtheria/Tetanus/Acell Pertussis (Adacel) 0.5 ml IM .ONCE ONE Stop: 11/22/18 08:33 Duloxetine HCl (Cymbalta) 20 mg PO DAILY [facility] Multivitamins/Minerals/Vitamin C (Tab-A-Jocelin) 1 tab PO DAILY [facility] Ondansetron HCl (Zofran Odt) 4 mg PO TID PRN PRN Reason: Nausea Sodium Chloride (Saline Flush) 10 ml FLUSH ASDIRECTED PRN PRN Reason: Keep Vein Open Last Admin: 11/21/18 17:47 Dose: 10 ml Tramadol HCl (Ultram) 50 mg PO TID PRN PRN Reason: Pain Last Admin: 11/22/18 05:21 Dose: 50 mg Admin: 11/21/18 21:14 Dose: 50 mg Admin: 11/21/18 15:35 Dose: 50 mg Assessment/Plan Comment:: I've given her some IV fluids overnight, and I will give her Rocephin 1 g IV as we wait for the culture results of the urine. I've recommended Ken catheter due to incontinence of urine, so we could better control of skin rash. I will recommend position changes, and relieving the pressure from sacrum. I Also updated tetanus immunization, and will start bacitracin ointment tid.. Consult to Dr. Quiroga is been completed. It is my understanding that a Vulnerable adult order has been placed with the [facility], given the situation of her surroundings. However jing is not keen to go to a different facility,other than home.Tramadol prn for pain control..
[2018-11-22] MEDS ORDERED: Bacitracin Oint 28.35 GM Tube TOP SCH (09:00)
[2018-11-22] MEDS: Morphine 2 MG/ML Syringe IVPUSH PRN ×2 (09:22→11:55)
[2018-11-22] MEDS: Acetaminophen/HYDROcodone 325-5 MG Tab PO PRN ×3 (09:27→19:34)
[2018-11-22] MEDS: Calcium Carbonate/Vitamin D3 1250 MG-200 Unit Tab PO SCH (09:29)
[2018-11-22] MEDS: DULoxetine 20 MG Cap PO SCH (09:29)
[2018-11-22] MEDS: Aspirin 81 MG Tab.Chew PO SCH ×2 (09:29→21:11)
[2018-11-22] MEDS: Multivitamin Tab PO SCH (09:29)
[2018-11-22] MEDS: Sodium Chloride 0.9% 10 ML Syringe FLUSH PRN ×2 (09:32→11:55)
[2018-11-22] MEDS: Bacitracin Oint 28.35 GM Tube TOP SCH ×2 (10:51→21:11)
[2018-11-22] MEDS: Potassium Chloride 20 MEQ Tab.ER PO SCH (21:11)
[2018-11-23] MEDS: Acetaminophen/HYDROcodone 325-5 MG Tab PO PRN ×4 (01:35→18:47)
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
--- NOTE | 2018-11-23 08:17 | PCM.PN ---
- General Info Date of Service: 11/23/18 Subjective Update: Pain better. I appreciate Dr Quinteros's input Functional Status: Reports: Pain Controlled - Review of Systems General: Reports: No Symptoms HEENT: Reports: No Symptoms Pulmonary: Reports: No Symptoms Cardiovascular: Reports: No Symptoms - Patient Data Vitals - Most Recent: Last Vital Signs Temp 97.8 F 11/23/18 00:00 Pulse 90 11/23/18 04:00 Resp 20 11/23/18 04:00 BP 129/68 11/23/18 00:00 Pulse Ox 96 11/23/18 04:00 Weight - Most Recent: 41.776 kg I&O - Last 24 Hours: Intake & Output 11/22/18 11/23/18 11/23/18 22:59 06:59 14:59 Output Total 450 Balance -450 Lab Results Last 24 Hours: Laboratory Results - last 24 hr 11/21/18 11/21/18 11/23/18 Range/Units 11:18 11:18 06:35 WBC 4.8 (4.5-12.0) X10-3/uL RBC 3.64 (3.23-5.20) x10(6)uL Hgb 9.5 L (11.5-15.5) g/dL Hct 29.8 L (30.0-51.3) % MCV 81.9 (80-96) fL MCH 26.0 L (27.7-33.6) pg MCHC 31.7 L (32.2-35.4) g/dL RDW 20.3 H (11.5-15.5) % Plt Count 377 H (125-369) X10(3)uL MPV 7.4 (7.4-10.4) fL Neut % (Auto) 46.1 (46-82) % Lymph % (Auto) 36.3 (13-37) % Ellis % (Auto) 14.4 H (4-12) % Eos % (Auto) 3 (1.0-5.0) % Baso % (Auto) 1 (0-2) % Neut # (Auto) 2.3 (1.6-8.3) # Lymph # (Auto) 1.7 (0.6-5.0) # Ellis # (Auto) 0.7 (0.0-1.3) # Eos # (Auto) 0.1 (0.0-0.8) # Baso # (Auto) 0.0 (0.0-0.2) # Sodium (135-145) mmol/L Potassium (3.5-5.3) mmol/L Chloride (100-110) mmol/L Carbon Dioxide (21-32) mmol/L BUN (7-18) mg/dL Creatinine (0.55-1.02) mg/dL Est Cr Clr Drug Dosing mL/min Estimated GFR (MDRD) (>60) BUN/Creatinine Ratio (9-20) Glucose (80-116) mg/dL Calcium (8.6-10.2) mg/dL Iron 12 L (27-139) ug/dL TIBC 268 (250-450) ug/dL Iron Saturation 4 L (15-55) % Unsaturated IBC 256 (118-369) ug/dL Folate >20.0 (>3.0) ng/mL 11/23/18 Range/Units 06:35 WBC (4.5-12.0) X10-3/uL RBC (3.23-5.20) x10(6)uL Hgb (11.5-15.5) g/dL Hct (30.0-51.3) % MCV (80-96) fL MCH (27.7-33.6) pg MCHC (32.2-35.4) g/dL RDW (11.5-15.5) % Plt Count (125-369) X10(3)uL MPV (7.4-10.4) fL Neut % (Auto) (46-82) % Lymph % (Auto) (13-37) % Ellis % (Auto) (4-12) % Eos % (Auto) (1.0-5.0) % Baso % (Auto) (0-2) % Neut # (Auto) (1.6-8.3) # Lymph # (Auto) (0.6-5.0) # Ellis # (Auto) (0.0-1.3) # Eos # (Auto) (0.0-0.8) # Baso # (Auto) (0.0-0.2) # Sodium 138 (135-145) mmol/L Potassium 4.1 D (3.5-5.3) mmol/L Chloride 101 (100-110) mmol/L Carbon Dioxide 29 (21-32) mmol/L BUN 11 (7-18) mg/dL Creatinine 0.7 (0.55-1.02) mg/dL Est Cr Clr Drug Dosing 54.25 mL/min Estimated GFR (MDRD) > 60 (>60) BUN/Creatinine Ratio 15.7 (9-20) Glucose 121 H (80-116) mg/dL Calcium 8.9 (8.6-10.2) mg/dL Iron (27-139) ug/dL TIBC (250-450) ug/dL Iron Saturation (15-55) % Unsaturated IBC (118-369) ug/dL Folate (>3.0) ng/mL Esa Results Last 24 Hours: Microbiology 11/21/18 12:55 Urine Culture - Preliminary Urine, Catheterized MIXED POSITIVE POLO DAY 1 Med Orders - Current: Current Medications Hydrocodone Bitart/Acetaminophen ([place] 325-5 Mg) 1 tab PO Q4H PRN PRN Reason: Pain Last Admin: 11/23/18 05:49 Dose: 1 tab Aspirin (Aspirin) 81 mg PO BID [facility] Last Admin: 11/22/18 21:11 Dose: 81 mg Bacitracin (Bacitracin Oint) 3 gm TOP BID [facility] Last Admin: 11/22/18 21:11 Dose: 1 applic Calcium Carbonate (Calcium Carbonate/Vitamin D 1250 Mg-200 Unit) 1 tab PO DAILY [facility] Last Admin: 11/22/18 09:29 Dose: 1 tab Ceftriaxone Sodium (Rocephin) 1 gm IVPUSH Q24H [facility] Last Admin: 11/22/18 09:31 Dose: 1 gm Duloxetine HCl (Cymbalta) 20 mg PO DAILY [facility] Last Admin: 11/22/18 09:29 Dose: 20 mg Morphine Sulfate (Morphine) 1 mg IVPUSH Q1H PRN PRN Reason: Pain Last Admin: 11/22/18 11:55 Dose: 1 mg Multivitamins/Minerals/Vitamin C (Tab-A-Jocelin) 1 tab PO DAILY [facility] Last Admin: 11/22/18 09:29 Dose: 1 tab Ondansetron HCl (Zofran Odt) 4 mg PO TID PRN PRN Reason: Nausea Last Admin: 04/09/19 15:24 Dose: 4 mg Potassium Chloride (Klor-Con M20) 20 meq PO BEDTIME [facility] Last Admin: 11/22/18 21:11 Dose: 20 meq Sodium Chloride (Saline Flush) 10 ml FLUSH ASDIRECTED PRN PRN Reason: Keep Vein Open Last Admin: 11/22/18 11:55 Dose: 10 ml Discontinued Medications Bacitracin (Bacitracin Oint) 0 gm TOP TID [facility] Last Admin: 11/22/18 11:06 Dose: Not Given Diphtheria/Tetanus/Acell Pertussis (Adacel) 0.5 ml IM .ONCE ONE Stop: 11/22/18 08:33 Last Admin: 11/22/18 11:32 Dose: 0.5 ml Sodium Chloride (Normal Saline) 1,000 mls @ 125 mls/hr IV ASDIRECTED [facility] Last Admin: 11/22/18 02:57 Dose: 125 mls/hr Tramadol HCl (Ultram) 50 mg PO TID PRN PRN Reason: Pain Last Admin: 11/22/18 05:21 Dose: 50 mg - Exam General: Alert Neck: Supple Lungs: Clear to Auscultation Cardiovascular: Regular Rate Psy/Mental Status: Alert, Normal Affect - Problem List & Annotations (1) Excoriated rash SNOMED Code(s): 892678634 Code(s): R21 - RASH AND OTHER NONSPECIFIC SKIN ERUPTION Status: Acute Current Visit: Yes (2) MDD (major depressive disorder) SNOMED Code(s): 287111471 Code(s): F32.9 - MAJOR DEPRESSIVE DISORDER, SINGLE EPISODE, UNSPECIFIED Status: Acute Current Visit: Yes Qualifiers: Major depression recurrence: recurrent Active/Remission status: currently active Psychotic features: without psychotic features (3) Cyclical vomiting Status: Acute Current Visit: Yes Qualifiers: Vomiting Intractability: non-intractable (4) Bacteriuria SNOMED Code(s): 60534976 Code(s): R82.71 - BACTERIURIA Status: Acute Current Visit: Yes (5) Central pontine myelinolysis SNOMED Code(s): 3710113 Code(s): G37.2 - CENTRAL PONTINE MYELINOLYSIS Status: Chronic Current Visit: Yes (6) Chronic abdominal pain SNOMED Code(s): 780275619 Code(s): R10.9 - UNSPECIFIED ABDOMINAL PAIN; G89.29 - OTHER CHRONIC PAIN Status: Chronic Current Visit: Yes (7) Decubitus skin ulcer SNOMED Code(s): 129385670 Code(s): L89.90 - PRESSURE ULCER OF UNSPECIFIED SITE, UNSPECIFIED STAGE Status: Acute Current Visit: Yes Qualifiers: Pressure injury location: lower back Pressure injury stage: unspecified pressure injury stage Qualified Code(s): L89.159 - Pressure ulcer of sacral region, unspecified stage Annotation/Comment:: Admit to IP, skin managment, and disposition with Rashel Co SS. (8) H/O ETOH abuse SNOMED Code(s): 672718103 Code(s): Z87.898 - PERSONAL HISTORY OF OTHER SPECIFIED CONDITIONS Status: Acute Current Visit: No (9) Hypokalemia SNOMED Code(s): 61431171 Code(s): E87.6 - HYPOKALEMIA Status: Acute Current Visit: No Annotation /Comment:: Zuleika Lamb can resume KCl 10 meq tabs qd. - Problem List Review Problem List Initiated/Reviewed/Updated: Yes - My Orders Last 24 Hours: My Active Orders 11/22/18 08:32 Urinary Catheter Assessment [RC] QSHIFT 11/22/18 08:45 Insert Urinary Catheter [OM.PC] Q24H cefTRIAXone [Rocephin] 1 gm IVPUSH Q24H 11/22/18 08:51 Consult to Physician [CONS] Urgent 11/22/18 08:52 Notify Provider Consults [RC] ASDIRECTED 11/22/18 09:00 Calcium Carbonate/Vitamin D3 [Calcium Carbonate/Vitamin D 1250 MG-200 Unit] 1 tab PO DAILY DULoxetine [Cymbalta] 20 mg PO DAILY Multivitamins [Tab-A-Jocelin] 1 tab PO DAILY 11/22/18 21:00 Potassium Chloride [Klor-Con M20] 20 meq PO BEDTIME - Plan Plan:: DC IV antibiotics-normal polo on Urine culture. Continue current care otherwise. PT to consult. ? Swing bed
--- NOTE | 2018-11-23 09:08 | PCM.SURGPN ---
- General Info Date of Service: 11/23/18 - Review of Systems Skin: Reports: Other (dressing changes and tub baths have been started) - Patient Data Vitals - Most Recent: Last Vital Signs Temp 97.8 F 11/23/18 00:00 Pulse 90 11/23/18 04:00 Resp 20 11/23/18 04:00 BP 129/68 11/23/18 00:00 Pulse Ox 96 11/23/18 04:00 Weight - Most Recent: 41.776 kg I&O - Last 24 Hours: Intake & Output 11/22/18 11/23/18 11/23/18 22:59 06:59 14:59 Output Total 450 Balance -450 Lab Results Last 24 Hrs: Laboratory Results - last 24 hr 11/23/18 11/23/18 Range/Units 06:35 06:35 WBC 4.8 (4.5-12.0) X10-3/uL RBC 3.64 (3.23-5.20) x10(6)uL Hgb 9.5 L (11.5-15.5) g/dL Hct 29.8 L (30.0-51.3) % MCV 81.9 (80-96) fL MCH 26.0 L (27.7-33.6) pg MCHC 31.7 L (32.2-35.4) g/dL RDW 20.3 H (11.5-15.5) % Plt Count 377 H (125-369) X10(3)uL MPV 7.4 (7.4-10.4) fL Neut % (Auto) 46.1 (46-82) % Lymph % (Auto) 36.3 (13-37) % Maverick % (Auto) 14.4 H (4-12) % Eos % (Auto) 3 (1.0-5.0) % Baso % (Auto) 1 (0-2) % Neut # (Auto) 2.3 (1.6-8.3) # Lymph # (Auto) 1.7 (0.6-5.0) # Maverick # (Auto) 0.7 (0.0-1.3) # Eos # (Auto) 0.1 (0.0-0.8) # Baso # (Auto) 0.0 (0.0-0.2) # Sodium 138 (135-145) mmol/L Potassium 4.1 D (3.5-5.3) mmol/L Chloride 101 (100-110) mmol/L Carbon Dioxide 29 (21-32) mmol/L BUN 11 (7-18) mg/dL Creatinine 0.7 (0.55-1.02) mg/dL Est Cr Clr Drug Dosing 54.25 mL/min Estimated GFR (MDRD) > 60 (>60) BUN/Creatinine Ratio 15.7 (9-20) Glucose 121 H (80-116) mg/dL Calcium 8.9 (8.6-10.2) mg/dL Esa Results Last 24 Hrs: Microbiology 11/21/18 12:55 Urine Culture - Preliminary Urine, Catheterized MIXED POSITIVE DEREK DAY 1 Med Orders - Current: Current Medications Hydrocodone Bitart/Acetaminophen ([place] 325-5 Mg) 1 tab PO Q4H PRN PRN Reason: Pain Last Admin: 11/23/18 05:49 Dose: 1 tab Aspirin (Aspirin) 81 mg PO BID [facility] Last Admin: 11/22/18 21:11 Dose: 81 mg Bacitracin (Bacitracin Oint) 3 gm TOP BID [facility] Last Admin: 11/22/18 21:11 Dose: 1 applic Calcium Carbonate (Calcium Carbonate/Vitamin D 1250 Mg-200 Unit) 1 tab PO DAILY [facility] Last Admin: 11/22/18 09:29 Dose: 1 tab Duloxetine HCl (Cymbalta) 20 mg PO DAILY [facility] Last Admin: 11/22/18 09:29 Dose: 20 mg Morphine Sulfate (Morphine) 1 mg IVPUSH Q1H PRN PRN Reason: Pain Last Admin: 11/22/18 11:55 Dose: 1 mg Multivitamins/Minerals/Vitamin C (Tab-A-Jocelin) 1 tab PO DAILY [facility] Last Admin: 11/22/18 09:29 Dose: 1 tab Ondansetron HCl (Zofran Odt) 4 mg PO TID PRN PRN Reason: Nausea Last Admin: 11/22/18 15:24 Dose: 4 mg Potassium Chloride (Klor-Con M20) 20 meq PO BEDTIME [facility] Last Admin: 11/22/18 21:11 Dose: 20 meq Sodium Chloride (Saline Flush) 10 ml FLUSH ASDIRECTED PRN PRN Reason: Keep Vein Open Last Admin: 11/22/18 11:55 Dose: 10 ml Discontinued Medications Bacitracin (Bacitracin Oint) 0 gm TOP TID [facility] Last Admin: 11/22/18 11:06 Dose: Not Given Ceftriaxone Sodium (Rocephin) 1 gm IVPUSH Q24H [facility] Last Admin: 11/22/18 09:31 Dose: 1 gm Diphtheria/Tetanus/Acell Pertussis (Adacel) 0.5 ml IM .ONCE ONE Stop: 11/22/18 08:33 Last Admin: 11/22/18 11:32 Dose: 0.5 ml Sodium Chloride (Normal Saline) 1,000 mls @ 125 mls/hr IV ASDIRECTED [facility] Last Admin: 11/22/18 02:57 Dose: 125 mls/hr Tramadol HCl (Ultram) 50 mg PO TID PRN PRN Reason: Pain Last Admin: 11/22/18 05:21 Dose: 50 mg - Exam Wound/Incisions: Other (wound is still cleaner due to tub baths with the blistered skin removed. ) - Problem List Review Problem List Initiated/Reviewed/Updated: Yes - My Orders Last 24 Hours: Active Orders 24 hr Category Date Time Status Dietary Supplements [RC] TIDMEALS Care 11/22/18 09:05 Active Insert Urinary Catheter [OM.PC] Q24H Care 11/22/18 08:45 Ordered Notify Provider Consults [RC] ASDIRECTED Care 11/22/18 08:52 Active Urinary Catheter Assessment [RC] QSHIFT Care 11/22/18 08:32 Active Wound Care [RC] 09,21 Care 11/22/18 08:55 Active Consult to Physician [CONS] Urgent Cons 11/22/18 08:51 Ordered Acetaminophen/HYDROcodone [[place] 325-5 MG] Med 11/22/18 09:08 Active 1 tab PO Q4H PRN Bacitracin [Bacitracin Oint] Med 11/22/18 09:15 Active 3 gm TOP BID Calcium Carbonate/Vitamin D3 [Calcium Carbonate/Vitamin Med 11/22/18 09:00 Active D 1250 MG-200 Unit] 1 tab PO DAILY DULoxetine [Cymbalta] Med 11/22/18 09:00 Active 20 mg PO DAILY Morphine Med 11/22/18 08:57 Active 1 mg IVPUSH Q1H PRN Multivitamins [Tab-A-Jocelin] Med 11/22/18 09:00 Active 1 tab PO DAILY Potassium Chloride [Klor-Con M20] Med 11/22/18 21:00 Active 20 meq PO BEDTIME Medication Orders Hydrocodone Bitart/Acetaminophen ([place] 325-5 Mg) 1 tab PO Q4H PRN PRN Reason: Pain Last Admin: 11/23/18 05:49 Dose: 1 tab Admin: 11/23/18 01:35 Dose: 1 tab Admin: 11/22/18 19:34 Dose: 1 tab Admin: 11/22/18 15:22 Dose: 1 tab Admin: 11/22/18 09:27 Dose: 1 tab Aspirin (Aspirin) 81 mg PO BID [facility] Last Admin: 11/22/18 21:11 Dose: 81 mg Admin: 11/22/18 09:29 Dose: 81 mg Admin: 11/21/18 21:15 Dose: 81 mg Bacitracin (Bacitracin Oint) 3 gm TOP BID [facility] Last Admin: 11/22/18 21:11 Dose: 1 applic Admin: 11/22/18 10:51 Dose: 1 applic Calcium Carbonate (Calcium Carbonate/Vitamin D 1250 Mg-200 Unit) 1 tab PO DAILY [facility] Last Admin: 11/22/18 09:29 Dose: 1 tab Duloxetine HCl (Cymbalta) 20 mg PO DAILY [facility] Last Admin: 11/22/18 09:29 Dose: 20 mg Morphine Sulfate (Morphine) 1 mg IVPUSH Q1H PRN PRN Reason: Pain Last Admin: 11/22/18 11:55 Dose: 1 mg Admin: 11/22/18 09:22 Dose: 1 mg Multivitamins/Minerals/Vitamin C (Tab-A-Jocelin) 1 tab PO DAILY [facility] Last Admin: 11/22/18 09:29 Dose: 1 tab Ondansetron HCl (Zofran Odt) 4 mg PO TID PRN PRN Reason: Nausea Last Admin: 11/22/18 15:24 Dose: 4 mg Potassium Chloride (Klor-Con M20) 20 meq PO BEDTIME [facility] Last Admin: 11/22/18 21:11 Dose: 20 meq Sodium Chloride (Saline Flush) 10 ml FLUSH ASDIRECTED PRN PRN Reason: Keep Vein Open Last Admin: 11/22/18 11:55 Dose: 10 ml Admin: 11/22/18 09:32 Dose: 10 ml Admin: 11/21/18 17:47 Dose: 10 ml - Assessment Assessment (Free Text/Narrative):: slight improvement of buttocks lesion. will of course take some time - Plan Plan (Free Text/Narrative):: no further recommendations will reassess in a few days.
[2018-11-23] MEDS: Morphine 2 MG/ML Syringe IVPUSH PRN ×2 (09:21→21:15)
[2018-11-23] MEDS: Multivitamin Tab PO SCH (09:28)
[2018-11-23] MEDS: Calcium Carbonate/Vitamin D3 1250 MG-200 Unit Tab PO SCH (09:28)
[2018-11-23] MEDS: DULoxetine 20 MG Cap PO SCH (09:28)
[2018-11-23] MEDS: Aspirin 81 MG Tab.Chew PO SCH ×2 (09:28→20:58)
[2018-11-23] MEDS: Bacitracin Oint 28.35 GM Tube TOP SCH ×2 (09:35→20:58)
[2018-11-23] MEDS ORDERED: diphenhydrAMINE 25 MG Cap PO PRN (11:45)
[2018-11-23] MEDS: Potassium Chloride 20 MEQ Tab.ER PO SCH (20:59)
[2018-11-23] MEDS: Sodium Chloride 0.9% 10 ML Syringe FLUSH PRN (21:19)
[2018-11-24] MEDS: Acetaminophen/HYDROcodone 325-5 MG Tab PO PRN ×2 (01:27→05:43)
[2018-11-24 08:00] VITALS: BP 133/78
[2018-11-24] MEDS: Aspirin 81 MG Tab.Chew PO SCH (08:45)
[2018-11-24] MEDS: DULoxetine 20 MG Cap PO SCH (08:45)
[2018-11-24] MEDS: Sodium Chloride 0.9% 10 ML Syringe FLUSH PRN (08:45)
[2018-11-24] MEDS: Multivitamin Tab PO SCH (08:45)
[2018-11-24] MEDS: Calcium Carbonate/Vitamin D3 1250 MG-200 Unit Tab PO SCH (08:46)
[2018-11-24] MEDS: Bacitracin Oint 28.35 GM Tube TOP SCH (08:46)
--- NOTE | 2018-11-24 09:03 | PCM.PN ---
- General Info Date of Service: 11/24/18 Subjective Update: Doing better. Able to ambulate, except for the pain. Independent Functional Status: Reports: Pain Controlled, Tolerating Diet - Review of Systems HEENT: Reports: No Symptoms Pulmonary: Reports: No Symptoms Cardiovascular: Reports: No Symptoms Gastrointestinal: Reports: No Symptoms Genitourinary: Reports: No Symptoms - Patient Data Vitals - Most Recent: Last Vital Signs Temp 98.3 F 11/24/18 07:58 Pulse 106 H 11/24/18 07:58 Resp 18 11/24/18 07:58 BP 133/78 11/24/18 07:58 Pulse Ox 98 11/24/18 07:58 Weight - Most Recent: 41.776 kg I&O - Last 24 Hours: Intake & Output 11/23/18 11/24/18 11/24/18 22:59 06:59 14:59 Intake Total 400 Output Total 150 300 Balance -150 100 Esa Results Last 24 Hours: Microbiology 11/21/18 12:55 Urine Culture - Final Urine, Catheterized MIXED POSITIVE DEREK DAY 2 Med Orders - Current: Current Medications Hydrocodone Bitart/Acetaminophen ([place] 325-5 Mg) 1 tab PO Q4H PRN PRN Reason: Pain Last Admin: 11/24/18 05:43 Dose: 1 tab Aspirin (Aspirin) 81 mg PO BID [facility] Last Admin: 11/24/18 08:45 Dose: 81 mg Bacitracin (Bacitracin Oint) 3 gm TOP BID [facility] Last Admin: 11/24/18 08:46 Dose: 1 applic Calcium Carbonate (Calcium Carbonate/Vitamin D 1250 Mg-200 Unit) 1 tab PO DAILY [facility] Last Admin: 11/24/18 08:46 Dose: 1 tab Diphenhydramine HCl (Benadryl) 25 mg PO Q6H PRN PRN Reason: Itching Last Admin: 11/23/18 12:41 Dose: 25 mg Duloxetine HCl (Cymbalta) 20 mg PO DAILY [facility] Last Admin: 11/24/18 08:45 Dose: 20 mg Morphine Sulfate (Morphine) 1 mg IVPUSH Q1H PRN PRN Reason: Pain Last Admin: 11/23/18 21:15 Dose: 1 mg Multivitamins/Minerals/Vitamin C (Tab-A-Jocelin) 1 tab PO DAILY [facility] Last Admin: 11/24/18 08:45 Dose: 1 tab Ondansetron HCl (Zofran Odt) 4 mg PO TID PRN PRN Reason: Nausea Last Admin: 11/22/18 15:24 Dose: 4 mg Potassium Chloride (Klor-Con M20) 20 meq PO BEDTIME [facility] Last Admin: 11/23/18 20:59 Dose: 20 meq Sodium Chloride (Saline Flush) 10 ml FLUSH ASDIRECTED PRN PRN Reason: Keep Vein Open Last Admin: 11/24/18 08:45 Dose: 10 ml Discontinued Medications Bacitracin (Bacitracin Oint) 0 gm TOP TID [facility] Last Admin: 11/22/18 11:06 Dose: Not Given Ceftriaxone Sodium (Rocephin) 1 gm IVPUSH Q24H [facility] Last Admin: 11/22/18 09:31 Dose: 1 gm Diphtheria/Tetanus/Acell Pertussis (Adacel) 0.5 ml IM .ONCE ONE Stop: 11/22/18 08:33 Last Admin: 11/22/18 11:32 Dose: 0.5 ml Sodium Chloride (Normal Saline) 1,000 mls @ 125 mls/hr IV ASDIRECTED [facility] Last Admin: 11/22/18 02:57 Dose: 125 mls/hr Tramadol HCl (Ultram) 50 mg PO TID PRN PRN Reason: Pain Last Admin: 11/22/18 05:21 Dose: 50 mg - Exam General: Alert HEENT: Pupils Equal Neck: Supple Lungs: Clear to Auscultation Psy/Mental Status: Alert, Normal Affect - Problem List & Annotations (1) Excoriated rash SNOMED Code(s): 477251577 Code(s): R21 - RASH AND OTHER NONSPECIFIC SKIN ERUPTION Status: Acute Current Visit: Yes (2) MDD (major depressive disorder) SNOMED Code(s): 325233381 Code(s): F32.9 - MAJOR DEPRESSIVE DISORDER, SINGLE EPISODE, UNSPECIFIED Status: Acute Current Visit: Yes Qualifiers: Major depression recurrence: recurrent Active/Remission status: currently active Psychotic features: without psychotic features (3) Cyclical vomiting Status: Acute Current Visit: Yes Qualifiers: Vomiting Intractability: non-intractable (4) Bacteriuria SNOMED Code(s): 77386574 Code(s): R82.71 - BACTERIURIA Status: Acute Current Visit: Yes (5) Central pontine myelinolysis SNOMED Code(s): 0750738 Code(s): G37.2 - CENTRAL PONTINE MYELINOLYSIS Status: Chronic Current Visit: Yes (6) Chronic abdominal pain SNOMED Code(s): 528242700 Code(s): R10.9 - UNSPECIFIED ABDOMINAL PAIN; G89.29 - OTHER CHRONIC PAIN Status: Chronic Current Visit: Yes (7) Decubitus skin ulcer SNOMED Code(s): 413000407 Code(s): L89.90 - PRESSURE ULCER OF UNSPECIFIED SITE, UNSPECIFIED STAGE Status: Acute Current Visit: Yes Qualifiers: Pressure injury location: lower back Pressure injury stage: unspecified pressure injury stage Qualified Code(s): L89.159 - Pressure ulcer of sacral region, unspecified stage Annotation/Comment:: Admit to IP, skin managment, and disposition with Rashel Jones SS. (8) H/O ETOH abuse SNOMED Code(s): 874926709 Code(s): Z87.898 - PERSONAL HISTORY OF OTHER SPECIFIED CONDITIONS Status: Acute Current Visit: No (9) Hypokalemia SNOMED Code(s): 07080895 Code(s): E87.6 - HYPOKALEMIA Status: Acute Current Visit: No Annotation /Comment:: Zuleika Lamb can resume KCl 10 meq tabs qd. - Problem List Review Problem List Initiated/Reviewed/Updated: Yes - My Orders Last 24 Hours: My Active Orders 11/23/18 11:45 diphenhydrAMINE [Benadryl] 25 mg PO Q6H PRN - Plan Plan:: JOSE Ken DC to [facility] for wound care/dressing changes
[2018-11-24] MEDS ORDERED: Ketorolac 15 MG/ML SDV IVPUSH PRN (09:09)
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
== END 2018-11-24 09:10 | disposition swing bed (61) | DRG 935 ==
LOC: FB.ED 10:13 → FB.MS 13:42
PROVIDERS: ADMIT Family Medicine; ATTEND Family Medicine
PROC: 3E0234Z Introduction of Serum, Toxoid and Vaccine into Muscle, Percutaneous Approach (ICD-10-PCS; principal; 2018-11-22)
DX: R21 Rash and other nonspecific skin eruption (principal); T21.67XA Corrosion of second degree of female genital region, initial encounter; G37.2 Central pontine myelinolysis; G25.9 Extrapyramidal and movement disorder, unspecified; T65.894A Toxic effect of other specified substances, undetermined, initial encounter; Y92.89 Other specified places as the place of occurrence of the external cause; L89.159 Pressure ulcer of sacral region, unspecified stage; R32 Unspecified urinary incontinence; I10 Essential (primary) hypertension; Z87.891 Personal history of nicotine dependence; F19.21 Other psychoactive substance dependence, in remission; F10.21 Alcohol dependence, in remission; R82.71 Bacteriuria; R10.9 Unspecified abdominal pain; G89.29 Other chronic pain; E87.6 Hypokalemia; Z23 Encounter for immunization; G43.A0 Cyclical vomiting, in migraine, not intractable; M81.0 Age-related osteoporosis without current pathological fracture; F32.9 Major depressive disorder, single episode, unspecified; K21.9 Gastro-esophageal reflux disease without esophagitis; Z87.01 Personal history of pneumonia (recurrent); H54.7 Unspecified visual loss; Z87.11 Personal history of peptic ulcer disease; Z79.82 Long term (current) use of aspirin; Z88.2 Allergy status to sulfonamides; Z72.89 Other problems related to lifestyle
CPT/HCPCS: 36415; 80053; 81001; 82607; 82746; 83540; 83550; 83735; 84484; 85025; 87086; 93005; 99284 ×2; G0480; 51702; 80048; 90471; 90715; 97166-GO; 97530-GO; 97535-GO; A9270-GY; J0696; J2270; J7030

== ENCOUNTER 2018-11-24 09:10 | Inpatient (IN) | payer MEDICARE ==
[2018-11-24] MEDS ORDERED: Ondansetron 4 MG Tab.DIS PO PRN (10:12)
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
[2018-11-24] MEDS: Ketorolac 15 MG/ML SDV IVPUSH PRN ×2 (10:35→21:51)
[2018-11-24] MEDS: Acetaminophen/HYDROcodone 325-5 MG Tab PO PRN ×3 (10:36→18:48)
[2018-11-24] MEDS: Aspirin 81 MG Tab.Chew PO SCH (20:59)
[2018-11-24] MEDS: Bacitracin Oint 28.35 GM Tube TOP SCH (20:59)
[2018-11-24] MEDS: Sodium Chloride 0.9% 10 ML Syringe FLUSH PRN (21:59)
[2018-11-25] MEDS: Acetaminophen/HYDROcodone 325-5 MG Tab PO PRN ×3 (04:01→20:55)
[2018-11-25] MEDS: DULoxetine 20 MG Cap PO SCH (08:22)
[2018-11-25] MEDS: Aspirin 81 MG Tab.Chew PO SCH ×2 (08:22→20:05)
[2018-11-25] MEDS: Multivitamin Tab PO SCH (08:23)
[2018-11-25] MEDS: Sodium Chloride 0.9% 10 ML Syringe FLUSH PRN ×3 (08:41→22:55)
[2018-11-25] MEDS: Ketorolac 15 MG/ML SDV IVPUSH PRN ×3 (08:41→22:54)
--- NOTE | 2018-11-25 08:47 | PCM.SN ---
- Free Text/Narrative Note: wound examined starting to epithelialize no infection would continue current treatment plan.
[2018-11-25] MEDS: Bacitracin Oint 28.35 GM Tube TOP SCH ×2 (09:18→20:05)
[2018-11-26] MEDS: Loperamide 2 MG Cap PO PRN ×2 (02:13→19:25)
[2018-11-26] MEDS: Acetaminophen/HYDROcodone 325-5 MG Tab PO PRN ×3 (02:14→22:47)
[2018-11-26] MEDS: Aspirin 81 MG Tab.Chew PO SCH ×2 (09:28→20:09)
[2018-11-26] MEDS: DULoxetine 20 MG Cap PO SCH (09:28)
[2018-11-26] MEDS: Multivitamin Tab PO SCH (09:28)
[2018-11-26] MEDS: Ketorolac 15 MG/ML SDV IVPUSH PRN (10:05)
[2018-11-26] MEDS: Sodium Chloride 0.9% 10 ML Syringe FLUSH PRN (10:08)
[2018-11-26] MEDS: Bacitracin Oint 28.35 GM Tube TOP SCH ×2 (10:23→20:09)
[2018-11-27] MEDS: Aspirin 81 MG Tab.Chew PO SCH ×3 (08:22→20:32)
[2018-11-27] MEDS: DULoxetine 20 MG Cap PO SCH (08:22)
[2018-11-27] MEDS: Multivitamin Tab PO SCH (08:22)
[2018-11-27] MEDS: Bacitracin Oint 28.35 GM Tube TOP SCH ×2 (10:00→20:33)
[2018-11-27] MEDS: Nicotine 14 MG/24 Hr Patch TRDERM SCH (10:37)
[2018-11-27] MEDS: Acetaminophen/HYDROcodone 325-5 MG Tab PO PRN ×2 (10:39→15:03)
[2018-11-27] MEDS: Sodium Chloride 0.9% 10 ML Syringe FLUSH PRN (15:05)
[2018-11-27] MEDS ORDERED: Bacitracin/Neomycin/Polymyxin B Oint 28.4 GM Tube ONE (20:26)
--- NOTE | 2018-11-28 07:45 | PCM.SN ---
- Free Text/Narrative Note: wound check continues to heal. now mainly on the left buttock. would continue current rx. will recheck in a few days. from a surgical perspective if had help at home could be handled as an outpt.
[2018-11-28] MEDS: Acetaminophen/HYDROcodone 325-5 MG Tab PO PRN ×3 (07:49→21:16)
--- NOTE | 2018-11-28 08:00 | PCM.PN ---
<Eh Hancock - Last Filed: 11/28/18 07:54> - General Info Date of Service: 11/28/18 Subjective Update: Patient c/o leg swelling. she use lasix at home. she denies chest pain, SOB. tolerating diet well. - Review of Systems General: Reports: No Symptoms Pulmonary: Reports: No Symptoms Cardiovascular: Reports: No Symptoms Gastrointestinal: Reports: No Symptoms Skin: Reports: Rash, Other (Pressure ulcer of buttock) Neurological: Reports: No Symptoms Psychiatric: Reports: No Symptoms - Patient Data Vitals - Most Recent: Last Vital Signs Temp 36.8 C 11/27/18 08:00 Pulse 98 11/25/18 16:00 Resp 14 11/27/18 08:00 BP 130/63 11/27/18 08:00 Pulse Ox 97 11/27/18 08:00 Weight - Most Recent: 92 lb 1.6 oz Med Orders - Current: Current Medications Hydrocodone Bitart/Acetaminophen ([place] 325-5 Mg) 1 tab PO Q4H PRN PRN Reason: Pain Last Admin: 11/28/18 07:49 Dose: 1 tab Aspirin (Aspirin) 81 mg PO BID [facility] Last Admin: 11/27/18 20:32 Dose: 81 mg Bacitracin (Bacitracin Oint) 3 gm TOP BID [facility] Last Admin: 11/27/18 20:33 Dose: 1 applic Duloxetine HCl (Cymbalta) 20 mg PO DAILY [facility] Last Admin: 11/27/18 08:22 Dose: 20 mg Furosemide (Lasix) 20 mg PO BID [facility] Ketorolac Tromethamine (Toradol) 15 mg IVPUSH Q6H PRN PRN Reason: PAIN Last Admin: 11/26/18 10:05 Dose: 15 mg Loperamide HCl (Imodium) 2 mg PO ASDIRECTED PRN PRN Reason: Diarrhea Last Admin: 11/26/18 19:25 Dose: 2 mg Miscellaneous Information (Remove Patch) 1 ea TRDERM DAILY [facility] Multivitamins/Minerals/Vitamin C (Tab-A-Jocelin) 1 tab PO DAILY [facility] Last Admin: 11/27/18 08:22 Dose: 1 tab Nicotine (Habitrol) 14 mg TRDERM DAILY [facility] Last Admin: 11/27/18 10:37 Dose: 14 mg Non-Formulary Medication (Calcium Carbonate/Vitamin D3 [Calcium 600 + Vit D 400 Softgl]) 1 tab PO DAILY [facility] Ondansetron HCl (Zofran Odt) 4 mg PO TID PRN PRN Reason: Nausea Potassium Chloride (Potassium Chloride Solution) 20 meq PO DAILY [facility] Senna/Docusate Sodium (Senna Plus) 1 tab PO BID [facility] Last Admin: 11/27/18 20:33 Dose: Not Given Sodium Chloride (Saline Flush) 10 ml FLUSH ASDIRECTED PRN PRN Reason: Keep Vein Open Last Admin: 11/27/18 15:05 Dose: 10 ml Discontinued Medications Neomycin/Polymyxin/Bacitracin (Triple Antibiotic Oint) Confirm Administered Dose 28.4 gm .ROUTE .STK-MED ONE Stop: 11/27/18 20:27 Last Admin: 11/27/18 20:33 Dose: Not Given - Exam General: Alert, Oriented HEENT: Pupils Equal Neck: Supple Lungs: Clear to Auscultation, Normal Respiratory Effort Cardiovascular: Regular Rate, Regular Rhythm GI/Abdominal Exam: Normal Bowel Sounds (Female) Exam: Deferred Back Exam: Normal Inspection Extremities: Normal Inspection, Non-Tender, Pedal Edema Skin: Warm, Rash, Other (Pressure ulcer of left buttock ) Wound/Incisions: Dressing Dry and Intact, No Drainage, Erythema, Erythema Improving Neurological: No New Focal Deficit Psy/Mental Status: Alert, Normal Affect - Problem List & Annotations (1) Decubitus skin ulcer SNOMED Code(s): 801084679 Code(s): L89.90 - PRESSURE ULCER OF UNSPECIFIED SITE, UNSPECIFIED STAGE Status: Acute Current Visit: No Qualifiers: Pressure injury location: sacral region Pressure injury stage: stage 1 Qualified Code(s): L89.151 - Pressure ulcer of sacral region, stage 1 Annotation/Comment:: Admit to IP, skin managment, and disposition with Rashel Jones . (2) MDD (major depressive disorder) SNOMED Code(s): 063495289 Code(s): F32.9 - MAJOR DEPRESSIVE DISORDER, SINGLE EPISODE, UNSPECIFIED Status: Acute Current Visit: No Qualifiers: Major depression recurrence: recurrent Active/Remission status: currently active (3) Edema SNOMED Code(s): 858872265, 133034843 Code(s): R60.9 - EDEMA, UNSPECIFIED Status: Acute Current Visit: Yes (4) Chronic pain syndrome SNOMED Code(s): 629126936 Code(s): G89.4 - CHRONIC PAIN SYNDROME Status: Acute Current Visit: No (5) Hypokalemia SNOMED Code(s): 35354236 Code(s): E87.6 - HYPOKALEMIA Status: Acute Current Visit: No Annotation /Comment:: Zuleika Lamb can resume KCl 10 meq tabs qd. (6) Chronic abdominal pain SNOMED Code(s): 560965304 Code(s): R10.9 - UNSPECIFIED ABDOMINAL PAIN; G89.29 - OTHER CHRONIC PAIN Status: Chronic Current Visit: No - Problem List Review Problem List Initiated/Reviewed/Updated: Yes - My Orders Last 24 Hours: My Active Orders 11/28/18 09:00 Calcium Carbonate/Vitamin D3 [Calcium 600 + Vit D 400 Softgl] 1 tab PO DAILY Furosemide [Lasix] 20 mg PO BID Potassium Chloride [Potassium Chloride Solution] 20 meq PO DAILY - Plan Plan:: [facility] for [facility] care. Pressure ulcer wound improving. Pain is well controlled. Continue wound care per recommendation Restart home medication Lasix 20 mg. <Jose Cruz Manzo - Last Filed: 11/28/18 08:21> - Patient Data Vitals - Most Recent: Last Vital Signs Temp 98.2 F 11/27/18 08:00 Pulse 98 11/25/18 16:00 Resp 14 11/27/18 08:00 BP 130/63 11/27/18 08:00 Pulse Ox 97 11/27/18 08:00 Med Orders - Current: Current Medications Hydrocodone Bitart/Acetaminophen ([place] 325-5 Mg) 1 tab PO Q4H PRN PRN Reason: Pain Last Admin: 11/28/18 07:49 Dose: 1 tab Aspirin (Aspirin) 81 mg PO BID [facility] Last Admin: 11/27/18 20:32 Dose: 81 mg Bacitracin (Bacitracin Oint) 3 gm TOP BID [facility] Last Admin: 11/27/18 20:33 Dose: 1 applic Calcium Carbonate (Calcium Carbonate/Vitamin D 1250 Mg-200 Unit) 1 tab PO DAILY [facility] Duloxetine HCl (Cymbalta) 20 mg PO DAILY [facility] Last Admin: 11/27/18 08:22 Dose: 20 mg Furosemide (Lasix) 20 mg PO BIDDIURETIC [facility] Ketorolac Tromethamine (Toradol) 15 mg IVPUSH Q6H PRN PRN Reason: PAIN Last Admin: 11/26/18 10:05 Dose: 15 mg Loperamide HCl (Imodium) 2 mg PO ASDIRECTED PRN PRN Reason: Diarrhea Last Admin: 11/26/18 19:25 Dose: 2 mg Miscellaneous Information (Remove Patch) 1 ea TRDERM DAILY [facility] Multivitamins/Minerals/Vitamin C (Tab-A-Jocelin) 1 tab PO DAILY [facility] Last Admin: 11/27/18 08:22 Dose: 1 tab Nicotine (Habitrol) 14 mg TRDERM DAILY [facility] Last Admin: 11/27/18 10:37 Dose: 14 mg Ondansetron HCl (Zofran Odt) 4 mg PO TID PRN PRN Reason: Nausea Potassium Chloride (Potassium Chloride Solution) 20 meq PO DAILY [facility] Senna/Docusate Sodium (Senna Plus) 1 tab PO BID [facility] Last Admin: 11/27/18 20:33 Dose: Not Given Sodium Chloride (Saline Flush) 10 ml FLUSH ASDIRECTED PRN PRN Reason: Keep Vein Open Last Admin: 11/27/18 15:05 Dose: 10 ml Discontinued Medications Neomycin/Polymyxin/Bacitracin (Triple Antibiotic Oint) Confirm Administered Dose 28.4 gm .ROUTE .STK-MED ONE Stop: 11/27/18 20:27 Last Admin: 11/27/18 20:33 Dose: Not Given - Problem List & Annotations (1) Decubitus skin ulcer SNOMED Code(s): 151992935 Code(s): L89.90 - PRESSURE ULCER OF UNSPECIFIED SITE, UNSPECIFIED STAGE Status: Acute Current Visit: No Qualifiers: Pressure injury location: sacral region Pressure injury stage: stage 1 Qualified Code(s): L89.151 - Pressure ulcer of sacral region, stage 1 Annotation/Comment:: Admit to IP, skin managment, and disposition with Rashel DUKE. - Problem List Review Problem List Initiated/Reviewed/Updated: Yes - My Orders Last 24 Hours: My Active Orders 11/27/18 09:00 Nicotine [Habitrol] 14 mg TRDERM DAILY - Plan Plan:: I attest that I have seen the patient and agree with the plan.
[2018-11-28] MEDS: Bacitracin Oint 28.35 GM Tube TOP SCH ×3 (09:57→21:20)
[2018-11-28] MEDS: Aspirin 81 MG Tab.Chew PO SCH ×2 (09:59→21:12)
[2018-11-28] MEDS: Furosemide 20 MG Tab PO SCH ×2 (10:00→14:56)
[2018-11-28] MEDS: DULoxetine 20 MG Cap PO SCH (10:00)
[2018-11-28] MEDS: Calcium Carbonate/Vitamin D3 1250 MG-200 Unit Tab PO SCH (10:00)
[2018-11-28] MEDS: Nicotine 14 MG/24 Hr Patch TRDERM SCH (10:00)
[2018-11-28] MEDS: Potassium Chloride 10% 20 MEQ/15 ML Soln 15 ML UD Cup PO SCH (10:00)
[2018-11-28] MEDS: Remove Patch*NICOTINE TRDERM SCH (10:01)
[2018-11-28] MEDS: Multivitamin Tab PO SCH (10:05)
[2018-11-29] MEDS: Furosemide 20 MG Tab PO SCH (08:22)
[2018-11-29] MEDS: Aspirin 81 MG Tab.Chew PO SCH ×2 (08:23→20:27)
[2018-11-29] MEDS: Potassium Chloride 10% 20 MEQ/15 ML Soln 15 ML UD Cup PO SCH (08:24)
[2018-11-29] MEDS: Multivitamin Tab PO SCH (08:25)
[2018-11-29] MEDS: DULoxetine 20 MG Cap PO SCH (08:25)
[2018-11-29] MEDS: Calcium Carbonate/Vitamin D3 1250 MG-200 Unit Tab PO SCH (08:25)
[2018-11-29] MEDS: Remove Patch*NICOTINE TRDERM SCH (10:26)
[2018-11-29] MEDS: Nicotine 14 MG/24 Hr Patch TRDERM SCH (10:26)
[2018-11-29] MEDS: Acetaminophen/HYDROcodone 325-5 MG Tab PO PRN ×2 (12:13→20:29)
[2018-11-29] MEDS: Bacitracin Oint 28.35 GM Tube TOP SCH ×2 (13:05→20:27)
[2018-11-29] MEDS: Furosemide 40 MG Tab PO SCH (14:04)
[2018-11-30] MEDS: Acetaminophen/HYDROcodone 325-5 MG Tab PO PRN ×2 (08:13→14:22)
[2018-11-30] MEDS: Furosemide 40 MG Tab PO SCH ×2 (08:17→14:04)
[2018-11-30] MEDS: Aspirin 81 MG Tab.Chew PO SCH (08:18)
[2018-11-30] MEDS: DULoxetine 20 MG Cap PO SCH (08:18)
[2018-11-30] MEDS: Potassium Chloride 10% 20 MEQ/15 ML Soln 15 ML UD Cup PO SCH (08:18)
[2018-11-30] MEDS: Calcium Carbonate/Vitamin D3 1250 MG-200 Unit Tab PO SCH (08:18)
[2018-11-30] MEDS: Multivitamin Tab PO SCH (08:19)
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
[2018-11-30] MEDS: Bacitracin Oint 28.35 GM Tube TOP SCH (09:10)
[2018-11-30] MEDS: Nicotine 14 MG/24 Hr Patch TRDERM SCH (09:31)
[2018-11-30] MEDS: Remove Patch*NICOTINE TRDERM SCH (09:32)
[2018-11-30 14:04] VITALS: BP 151/78
== END 2018-11-30 14:50 | disposition home or self-care (01) | DRG 949 ==
LOC: FB.MS 09:10
PROVIDERS: ADMIT Family Medicine; ATTEND Family Medicine
DX: T21.6 Corrosion of second degree of trunk (principal); G37.2 Central pontine myelinolysis; T65.8 Toxic effect of other specified substances; L89.151 Pressure ulcer of sacral region, stage 1; H54.7 Unspecified visual loss; I10 Essential (primary) hypertension; Z87.01 Personal history of pneumonia (recurrent); Z87.891 Personal history of nicotine dependence; K21.9 Gastro-esophageal reflux disease without esophagitis; Z87.11 Personal history of peptic ulcer disease; R32 Unspecified urinary incontinence; M81.0 Age-related osteoporosis without current pathological fracture; M19.90 Unspecified osteoarthritis, unspecified site; F19.21 Other psychoactive substance dependence, in remission; F10.21 Alcohol dependence, in remission; Z88.2 Allergy status to sulfonamides; Z79.82 Long term (current) use of aspirin; R10.9 Unspecified abdominal pain; G89.29 Other chronic pain; R60.9 Edema, unspecified; E87.6 Hypokalemia
CPT/HCPCS: A9270-GY; J1885

== ENCOUNTER 2019-03-17 06:31 | Observation (INO) | payer MEDICARE, OTHER ==
[2019-03-17] MEDS ORDERED: Ondansetron 4 MG/2 ML SDV IVPUSH ONE (07:02)
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
[2019-03-17] MEDS ORDERED: Sodium Chloride 0.9% 1,000 ML IV ONE ×2 (07:33→10:06)
[2019-03-17] MEDS ORDERED: Alum Hydroxide/Mag Hydroxide 15 ML, Lidocaine 2% 15 ML PO ONE ×2 (07:34)
[2019-03-17] MEDS ORDERED: Thiamine 200 MG/2 ML MDV IM ONE (08:19)
[2019-03-17] MEDS ORDERED: Magnesium Chloride 64 MG Tab.ER PO STA (08:40)
[2019-03-17] MEDS ORDERED: Potassium Chloride 20 MEQ Tab.ER PO ONE (08:40)
[2019-03-17] MEDS ORDERED: Folic Acid 1 MG Tab PO ONE (10:00)
[2019-03-17] MEDS: Multivitamin Tab PO SCH (10:08)
[2019-03-17] MEDS ORDERED: Pantoprazole 40 MG Vial IVPUSH ONE (11:04)
[2019-03-17] MEDS ORDERED: fentaNYL 100 MCG/2 ML SDV IVPUSH ONE (11:53)
[2019-03-17] MEDS ORDERED: Morphine 2 MG/ML Syringe IVPUSH PRN (15:59)
[2019-03-17] MEDS: Sodium Chloride 0.9% 10 ML Syringe FLUSH PRN (16:50)
[2019-03-17] MEDS: Ketorolac 15 MG/ML SDV IVPUSH PRN (16:52)
[2019-03-17] MEDS: Pantoprazole 40 MG Tab.CR PO SCH (20:08)
[2019-03-17] MEDS ORDERED: ACAMPROSATE 666 MG PO SCH (21:00)
[2019-03-18] MEDS: Ketorolac 15 MG/ML SDV IVPUSH PRN ×3 (00:33→12:44)
[2019-03-18] MEDS: Sodium Chloride 0.9% 10 ML Syringe FLUSH PRN ×2 (00:34→06:44)
[2019-03-18] MEDS: Pantoprazole 40 MG Tab.CR PO SCH (06:42)
[2019-03-18] MEDS: Multivitamin Tab PO SCH (08:43)
[2019-03-18] MEDS ORDERED: Multivitamin Tab PO SCH (09:00)
[2019-03-18] MEDS ORDERED: DULoxetine 20 MG Cap PO SCH (09:00)
[2019-03-18 09:16] VITALS: BP 135/77; PULSE 98
--- NOTE | 2019-03-18 09:51 | PCM.HP ---
H&P History of Present Illness - General Date of Service: 03/18/19 Admit Problem/Dx: Admission Diagnosis/Problem Admission Diagnosis/Problem Weakness Source of Information: Patient History Limitations: Reports: No Limitations - History of Present Illness Initial Comments - Free Text/Narative: Zuleika is a 63-year-old well known to me. She came in yesterday because of dizziness, generalized weakness and multiple falls at home. She also complains of vomiting and inability to keep anything down, and epigastric pain. These are not new complaints as she's had these symptoms before and they are typically related to alcohol abuse. She did admit and endorse to drinking alcohol last Wednesday. She was admitted for IV fluids and pain control and overnight she has improved and is expressed interest to go home today. She has a history of depression, chronic back pain, alcohol abuse, and limb movement disorder well- controlled. Zuleika lives alone Upper abdomen Pain Score (Numeric/FACES): 2 - Related Data Allergies/Adverse Reactions: Allergies Allergy/AdvReac Type Severity Reaction Status Date / Time Sulfa (Sulfonamide Allergy Rash Verified 03/17/19 07:28 Antibiotics) Home Medications: Home Meds Calcium Carbonate/Vitamin D3 [Calcium 600 + Vit D 400 Softgl] 1 tab PO Q48H [History] Furosemide [Lasix] 20 mg PO DAILY PRN 10/09/13 [History] Multivitamin [Multi-Vitamin Daily] 1 tab PO DAILY 10/09/13 [History] Aspirin 81 mg PO BID 07/26/18 [History] Ondansetron [Zofran ODT] 4 mg PO TID PRN 07/26/18 [History] DULoxetine [Cymbalta] 20 mg PO DAILY 11/21/18 [History] Acamprosate [Campral] 333 mg PO TID 11/30/18 [History] Spironolactone [Aldactone] 25 mg PO DAILY 03/17/19 [History] Past Medical History HEENT History: Reports: Cataract, Impaired Vision Cardiovascular History: Reports: Hypertension, Other (See Below) Other Cardiovascular History: states has irregular HR at times Respiratory History: Reports: Bronchitis, Recurrent, Pneumonia, Recurrent, Other (See Below) Other Respiratory History: TOBACCO ABUSE Gastrointestinal History: Reports: GERD, Pancreatitis, PUD Other Gastrointestinal History: "prolapsed colon" Genitourinary History: Reports: Urinary Incontinence Musculoskeletal History: Reports: Arthritis, Osteoporosis, Other (See Below) Other Musculoskeletal History: MOVEMENT DISORDER, ATAXIA Neurological History: Reports: Other (See Below) Other Neuro History: DT's, MOVEMENT DISORDER Psychiatric History: Reports: Addiction, Anxiety, Depression, Hallucinations, Other (See Below) Other Psychiatric History: drug and alcohol addiction Endocrine/Metabolic History: Reports: Osteoporosis Hematologic History: Reports: Anemia, Blood Transfusion(s), Other (See Below) Other Hematologic History: leukopenia, THROMBOCYTOPENIA. Pt. here for a blood transfusion and low hemoglobin Immunologic History: Reports: None Oncologic (Cancer) History: Reports: None Dermatologic History: Reports: None - Infectious Disease History Infectious Disease History: Reports: Chicken Pox, Measles, Mumps - Past Surgical History Head Surgeries/Procedures: Reports: None HEENT Surgical History: Reports: None Cardiovascular Surgical History: Reports: None Respiratory Surgical History: Reports: None GI Surgical History: Reports: Colonoscopy, EGD, Other (See Below) Other GI Surgeries/Procedures: HX OF FEEDING TUBE - HAS BEEN REMOVED. Female Surgical History: Reports: None Endocrine Surgical History: Reports: None Neurological Surgical History: Reports: None Musculoskeletal Surgical History: Reports: Other (See Below) Other Musculoskeletal Surgeries/Procedures:: TOE SURGERY Oncologic Surgical History: Reports: None Dermatological Surgical History: Reports: None Social & Family History - Family History Family Medical History: Noncontributory - Tobacco Use Smoking Status *Q: Current Every Day Smoker Years of Tobacco use: 25 Packs/Tins Daily: 0.5 - Caffeine Use Caffeine Use: Reports: Coffee, Soda, Tea Other Caffeine Use: 2-3 CUPS DAILY - Recreational Drug Use Recreational Drug Use: No H&P Review of Systems - Review of Systems: Review Of Systems: ROS reveals no pertinent complaints other than HPI. Exam - Exam Exam: See Below - Vital Signs Vital Signs: Last Vital Signs Temp 98.2 F 03/18/19 09:00 Pulse 98 03/18/19 09:00 Resp 16 03/18/19 09:00 BP 135/77 03/18/19 09:00 Pulse Ox 99 03/18/19 09:00 Weight: 43.998 kg - Exam General: Alert, Oriented, 4 HEENT: PERRLA, Hearing Intact, Mucosa Moist & [place], Nares Patent, Normal Nasal Septum, Posterior Pharynx Clear, Conjunctiva Clear, EOMI, EACs Clear, TMs Clear Neck: Supple, Trachea Midline, 2 Lungs: Clear to Auscultation, Normal Respiratory Effort Cardiovascular: Regular Rate, Regular Rhythm GI/Abdominal Exam: Normal Bowel Sounds, Soft, Non-Tender, No Organomegaly, No Distention, No Abnormal Bruit, No Mass, Pelvis Stable (Female) Exam: Deferred Rectal (Female) Exam: Deferred Back Exam: Normal Inspection, Full Range of Motion, NT Extremities: Normal Inspection, Normal Range of Motion, Non-Tender, No Pedal Edema, Normal Capillary Refill Skin: Warm, Dry, Intact Neurological: Cranial Nerves Intact, Reflexes Equal Bilateral Neuro Extensive - Mental Status: Alert, Oriented x3, Normal Mood/Affect, Normal Cognition Neuro Extensive - Motor, Sensory, Reflexes: CN II-XII Intact, Normal Gait, Normal Reflexes Psychiatric: Alert, Normal Affect, Normal Mood - Patient Data Lab Results Last 24 hrs: Laboratory Results - last 24 hr 03/17/19 03/17/19 03/18/19 Range/Units 16:15 16:15 00:29 WBC 7.0 (4.5-12.0) X10-3/uL RBC 3.56 (3.23-5.20) x10(6)uL Hgb 10.9 L (11.5-15.5) g/dL Hct 32.0 (30.0-51.3) % MCV 89.8 (80-96) fL MCH 30.5 (27.7-33.6) pg MCHC 33.9 (32.2-35.4) g/dL RDW 22.1 H (11.5-15.5) % Plt Count 299 (125-369) X10(3)uL MPV 6.6 L (7.4-10.4) fL Neut % (Auto) 57.6 (46-82) % Lymph % (Auto) 26.3 (13-37) % [place] % (Auto) 12.0 (4-12) % Eos % (Auto) 3 (1.0-5.0) % Baso % (Auto) 1 (0-2) % Neut # (Auto) 4.2 (1.6-8.3) # Lymph # (Auto) 1.8 (0.6-5.0) # [place] # (Auto) 0.8 (0.0-1.3) # Eos # (Auto) 0.2 (0.0-0.8) # Baso # (Auto) 0.0 (0.0-0.2) # Sodium 133 L (135-145) mmol/L Potassium 3.7 (3.5-5.3) mmol/L Chloride 97 L D (100-110) mmol/L Carbon Dioxide 24 (21-32) mmol/L BUN 11 (7-18) mg/dL Creatinine 0.6 (0.55-1.02) mg/dL Est Cr Clr Drug Dosing 65.79 mL/min Estimated GFR (MDRD) > 60 (>60) BUN/Creatinine Ratio 18.3 (9-20) Glucose 162 H D (80-116) mg/dL Calcium 7.9 L (8.6-10.2) mg/dL Total Bilirubin 0.8 (0.1-1.3) mg/dL AST 33 H D (5-25) IU/L ALT 25 D (12-36) U/L Alkaline Phosphatase 92 (56-112) IU/L Total Protein 6.7 (6.0-8.0) g/dL Albumin 3.2 (3.2-4.6) g/dL Globulin 3.5 g/dL Albumin/Globulin Ratio 0.9 Urine Color Yellow (YELLOW) Urine Appearance Clear (CLEAR) Urine pH 6.0 (5.0-6.5) Ur Specific [place] 1.010 (1.010-1.025) Urine Protein Negative (NEGATIVE) mg/dL Urine Glucose (UA) Normal (NORMAL) mg/dL Urine Ketones 50 H (NEGATIVE) mg/dL Urine Occult Blood Negative (NEGATIVE) Urine Nitrite Negative (NEGATIVE) Urine Bilirubin Negative (NEGATIVE) Urine Urobilinogen Normal (NEGATIVE) mg/dL Ur Leukocyte Esterase Negative (NEGATIVE) Urine RBC 0-5 (0-5) Urine WBC 0-5 (0-5) Ur Squamous Epith Cells Occasional (NS,R,O) Urine Bacteria Rare H (NS) 03/18/19 03/18/19 Range/Units 06:05 06:05 WBC 5.1 (4.5-12.0) X10-3/uL RBC 3.83 (3.23-5.20) x10(6)uL Hgb 11.2 L (11.5-15.5) g/dL Hct 34.8 (30.0-51.3) % MCV 91.0 (80-96) fL MCH 29.4 (27.7-33.6) pg MCHC 32.3 (32.2-35.4) g/dL RDW 21.8 H (11.5-15.5) % Plt Count 253 (125-369) X10(3)uL MPV 7.0 L (7.4-10.4) fL Neut % (Auto) 50.2 (46-82) % Lymph % (Auto) 33.3 (13-37) % [place] % (Auto) 11.6 (4-12) % Eos % (Auto) 4 (1.0-5.0) % Baso % (Auto) 1 (0-2) % Neut # (Auto) 2.6 (1.6-8.3) # Lymph # (Auto) 1.7 (0.6-5.0) # [place] # (Auto) 0.6 (0.0-1.3) # Eos # (Auto) 0.2 (0.0-0.8) # Baso # (Auto) 0.0 (0.0-0.2) # Sodium 134 L (135-145) mmol/L Potassium 3.6 (3.5-5.3) mmol/L Chloride 99 L (100-110) mmol/L Carbon Dioxide 27 (21-32) mmol/L BUN 9 (7-18) mg/dL Creatinine 0.5 L (0.55-1.02) mg/dL Est Cr Clr Drug Dosing 78.95 mL/min Estimated GFR (MDRD) > 60 (>60) BUN/Creatinine Ratio 18.0 (9-20) Glucose 109 (80-116) mg/dL Calcium 8.9 (8.6-10.2) mg/dL Total Bilirubin 0.5 (0.1-1.3) mg/dL AST 37 H D (5-25) IU/L ALT 24 (12-36) U/L Alkaline Phosphatase 103 (56-112) IU/L Total Protein 6.5 (6.0-8.0) g/dL Albumin 3.1 L (3.2-4.6) g/dL Globulin 3.4 g/dL Albumin/Globulin Ratio 0.9 Urine Color (YELLOW) Urine Appearance (CLEAR) Urine pH (5.0-6.5) Ur Specific [place] (1.010-1.025) Urine Protein (NEGATIVE) mg/dL Urine Glucose (UA) (NORMAL) mg/dL Urine Ketones (NEGATIVE) mg/dL Urine Occult Blood (NEGATIVE) Urine Nitrite (NEGATIVE) Urine Bilirubin (NEGATIVE) Urine Urobilinogen (NEGATIVE) mg/dL Ur Leukocyte Esterase (NEGATIVE) Urine RBC (0-5) Urine WBC (0-5) Ur Squamous Epith Cells (NS,R,O) Urine Bacteria (NS) Result Diagrams: 03/18/19 06:05 03/18/19 06:05 - Problem List (1) Dizziness SNOMED Code(s): 335618014, 327309547 ICD Code: R42 - DIZZINESS AND GIDDINESS Status: Acute Current Visit: Yes (2) H/O ETOH abuse SNOMED Code(s): 298740650 ICD Code: Z87.898 - PERSONAL HISTORY OF OTHER SPECIFIED CONDITIONS Status: Acute Current Visit: Yes (3) Chronic pain syndrome SNOMED Code(s): 492205031 ICD Code: G89.4 - CHRONIC PAIN SYNDROME Status: Acute Current Visit: No (4) Cyclical vomiting Status: Acute Current Visit: No Qualifiers: Vomiting Intractability: non-intractable (5) Dehydration SNOMED Code(s): 98365056 ICD Code: E86.0 - DEHYDRATION Status: Acute Current Visit: No (6) Dyskinesia SNOMED Code(s): 1903434 ICD Code: G24.9 - DYSTONIA, UNSPECIFIED Status: Acute Current Visit: No (7) Gastritis SNOMED Code(s): 8973265 ICD Code: K29.70 - GASTRITIS, UNSPECIFIED, WITHOUT BLEEDING Status: Acute Current Visit: No Problem Details: Zuleika Lamb should continue Omeperazole 20 mg qd as directed. 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 ICD Code: G37.2 - CENTRAL PONTINE MYELINOLYSIS Status: Chronic Current Visit: No (10) Chronic abdominal pain SNOMED Code(s): 970630549 ICD Code: R10.9 - UNSPECIFIED ABDOMINAL PAIN; G89.29 - OTHER CHRONIC PAIN Status: Chronic Current Visit: No Problem List Initiated/Reviewed/Updated: Yes Orders Last 24hrs: Active Orders 24 hr Category Date Time Status Patient Status [ADT] Routine ADT 03/17/19 13:36 Active Oxygen Therapy [RC] PRN Care 03/17/19 13:36 Active Up With Assistance [RC] ASDIRECTED Care 03/17/19 13:36 Active VTE/DVT Education [RC] Per Unit Routine Care 03/17/19 13:36 Active Vital Signs [RC] Q4H Care 03/17/19 13:36 Active AMYLASE [CHEM] Routine Lab 03/18/19 09:46 Ordered LIPASE, SERUM Stat Lab 03/18/19 09:46 Ordered Acamprosate [Campral] Med 03/17/19 21:00 Hold 666 mg PO TID DULoxetine [Cymbalta] Med 03/18/19 09:00 Active 20 mg PO DAILY Ketorolac [Toradol] Med 03/17/19 16:11 Active 15 mg IVPUSH Q6H PRN Morphine Med 03/17/19 15:59 Active 2 mg IVPUSH Q4H PRN Multivitamins [Tab-A-Jocelin] Med 03/17/19 10:15 Active 1 tab PO DAILY Pantoprazole [ProTONIX] Med 03/17/19 21:00 Active 40 mg PO 0600 Sodium Chloride 0.9% [Saline Flush] Med 03/17/19 16:50 Active 10 ml FLUSH ASDIRECTED PRN Resuscitation Status Routine Resus Stat 03/17/19 13:36 Ordered EKG 12 Lead [EK] Routine Ther 03/17/19 10:55 Ordered Medication Orders Duloxetine HCl (Cymbalta) 20 mg PO DAILY [facility] Last Admin: 03/18/19 08:43 Dose: 20 mg Ketorolac Tromethamine (Toradol) 15 mg IVPUSH Q6H PRN PRN Reason: BREAKTHROUGH PAIN Last Admin: 03/18/19 06:44 Dose: 15 mg Admin: 03/18/19 00:33 Dose: 15 mg Admin: 03/17/19 16:52 Dose: 15 mg Morphine Sulfate (Morphine) 2 mg IVPUSH Q4H PRN PRN Reason: Pain Multivitamins/Minerals/Vitamin C (Tab-A-Jocelin) 1 tab PO DAILY [facility] Last Admin: 03/18/19 08:43 Dose: 1 tab Admin: 03/17/19 10:08 Dose: 1 tab Non-Formulary Medication (Acamprosate [Campral]) 666 mg PO TID [facility] Pantoprazole Sodium (Protonix) 40 mg PO 0600 [facility] Last Admin: 03/18/19 06:42 Dose: 40 mg Admin: 03/17/19 20:08 Dose: 40 mg Sodium Chloride (Saline Flush) 10 ml FLUSH ASDIRECTED PRN PRN Reason: flush med Last Admin: 03/18/19 06:44 Dose: 10 ml Admin: 03/18/19 00:34 Dose: 10 ml Admin: 03/17/19 16:50 Dose: 10 ml Assessment/Plan Comment:: Overnight she got some fluids, some Zofran and when necessary morphine. Symptoms have improved and she feels ready to go home today. I will discharge her home on oral tramadol, and continue the rest of the prescriptions. I plan to see in the office next week
== END 2019-03-18 13:15 | disposition home or self-care (01) ==
LOC: FB.ED 06:31 → FB.MS 13:36
PROVIDERS: ADMIT Family Medicine; ATTEND Family Medicine
DX: R53.1 Weakness (principal); R42 Dizziness and giddiness; R10.13 Epigastric pain; K31.89 Other diseases of stomach and duodenum; R11.2 Nausea with vomiting, unspecified; E86.0 Dehydration; I10 Essential (primary) hypertension; K29.70 Gastritis, unspecified, without bleeding; F17.200 Nicotine dependence, unspecified, uncomplicated; F32.9 Major depressive disorder, single episode, unspecified; F10.10 Alcohol abuse, uncomplicated; G24.9 Dystonia, unspecified; G37.2 Central pontine myelinolysis; G89.29 Other chronic pain; R29.6 Repeated falls; Z88.2 Allergy status to sulfonamides; Z79.82 Long term (current) use of aspirin; Z79.899 Other long term (current) drug therapy
CPT/HCPCS: 36415; 80048; 80053; 81001; 82150; 85025; 93005; 96361; 96372; 96374; 96375; 96376; 99284; A9270; C9113; G0378; G0480; J1885; J2405; J3010; J3411; J7030; 83690; 93010

== ENCOUNTER 2019-03-29 16:29 | Emergency (ER) | payer MEDICARE, OTHER ==
[2019-03-29] MEDS ORDERED: Ondansetron 4 MG Tab.DIS PO ONE (16:44)
[2019-03-29] MEDS ORDERED: Sodium Chloride 0.9% 1,000 ML IV ONE ×3 (17:00→23:30)
[2019-03-29] MEDS ORDERED: LORazepam 2 MG/ML SDV IVPUSH ONE ×2 (17:00→21:52)
--- NOTE | 2019-03-29 17:41 | EDM.PDOC ---
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 Cont [CT] Stat 03/30/19 00:29 EKG Documentation Completion [RC] ASDIRECTED EKG 12 Lead [EK] Routine
[2019-03-29] MEDS ORDERED: Famotidine 20 MG/2 ML SDV IVPUSH ONE (18:55)
[2019-03-29] MEDS: Piperacillin/Tazobactam 3.375 GM in Sodium Chloride 0.9% 50 ML IV SCH (19:20)
[2019-03-29] MEDS ORDERED: Iopamidol 755 Mg/ML 75 ML Bottle IV ONE (19:29)
[2019-03-29] MEDS ORDERED: Famotidine/Normal Saline 20 MG/50 ML BAG ONE (22:09)
[2019-03-30] MEDS ORDERED: Thiamine 100 MG in Sodium Chloride 0.9% 100 ML IV ONE (00:29)
[2019-03-30] MEDS: Piperacillin/Tazobactam 3.375 GM in Sodium Chloride 0.9% 50 ML IV SCH (01:13)
--- NOTE | 2019-03-30 01:53 | OR ---
DATE OF OPERATION: 03/29/2019 SURGEON: Matt Dorsey MD INDICATION: This 63-year-old female presented to the emergency room with symptoms of nausea, vomiting, and diarrhea. She has become profoundly dehydrated and IV access is indicated. Multiple attempts at peripheral IV access have failed and so surgical consultation to obtain IV access is submitted. Examination shows the patient to be alert, semi-cooperative, and with no obvious trauma of the head or shoulder area. Examination of the extremities and neck did not reveal any identifiable peripheral veins superficially, so plan for placement of a subclavian central venous line for IV access is made. The procedure was discussed with the patient. She agreed to have this performed accepting risks. DESCRIPTION OF PROCEDURE: The right anterior shoulder and chest area were then sterilely prepped and draped, and the right infraclavicular space was infiltrated with Xylocaine. The patient was placed in Trendelenburg and using the triple lumen CVP kit, the accessing needle was advanced carefully through a retroclavicular approach and the right subclavian vein is easily entered. Good blood aspiration was achieved, and the guidewire was then advanced through the needle without difficulty. The vein dilator was passed over the guidewire and then the triple-lumen CVP was advanced over the guidewire to approximately 18 cm position. An upright chest x-ray was obtained which showed the catheter in good position in the superior vena cava, without evidence of complication. There was noted to be good aspiration of blood from the distal port, and all ports were flushed with heparin. The catheter was withdrawn approximately 2 cm and then secured in position with the nylon sutures in the kit. A sterile dressing was placed. Blood sample was obtained through the catheter, and IV access was then started and ran without difficulty. The patient tolerated the procedure well. No evidence of complication was noted. /[id number] TOMÁS/ROMARIO
[2019-03-30] MEDS ORDERED: Sodium Chloride 0.9% 1,000 ML IV ONE (05:55)
[2019-03-30 06:29] VITALS: BP 157/78; PULSE 114
--- NOTE | 2019-03-30 08:34 | PCM.SN ---
- Free Text/Narrative Note: Called to ER for a IV start and blood draw.Patient is extremely dehydrated.Attemptted extrimity venous puncture times four,was able to draw some blood for Lab and unable to pass cathedar.Placed patient in trendelenberg prepped skin 18 jelco to right external jugular,able to draw blood for lab and unable to thread cathedar for IV.Decision made with Dr Kumar to call surgeon for central line.
--- NOTE | 2019-03-30 12:14 | CR ---
INDICATION: Central line placement. CHEST: An AP upright view of the chest was obtained 03/29/19 and compared with 12/16/13 and 11/08/13. A central line is now seen from the right subclavian with its tip approximately 2 cm below the yelena in the area of the superior vena cava - in satisfactory position. No complicating process was identified. An active infiltrate or effusion was not identified. No pneumothorax was seen. The aorta is calcified in the arch area slightly. The heart is normal in size and shape. Overlying EKG leads are noted. IMPRESSION: 1. Satisfactory position of central line. 2. No acute process. 3. ASD aorta. MTDD
== END 2019-03-30 02:50 ==
LOC: FB.ED 16:29
DX: F10.239 Alcohol dependence with withdrawal, unspecified (principal); F10.229 Alcohol dependence with intoxication, unspecified; Y90.7 Blood alcohol level of 200-239 mg/100 ml; E86.0 Dehydration; E87.2 Acidosis; R10.9 Unspecified abdominal pain; D72.829 Elevated white blood cell count, unspecified; I45.81 Long QT syndrome; I10 Essential (primary) hypertension; K21.9 Gastro-esophageal reflux disease without esophagitis; Z88.2 Allergy status to sulfonamides; Z79.899 Other long term (current) drug therapy; Z79.82 Long term (current) use of aspirin
CPT/HCPCS: 36410; 36415; 36556; 36600; 71045; 74177; 80048; 80053; 81001; 82150; 82803; 83605; 83690; 83735; 84100; 84484; 85025; 85610; 93005; 93010; 96361; 96365; 96366; 96367; 96375; 96376; 99285; G0480; J1642; J2060; J2543; J3411; J7030; J7050; Q9967; J3490

== ENCOUNTER 2019-04-26 11:38 | Inpatient (IN) | payer MEDICARE, OTHER ==
[2019-04-26] MEDS ORDERED: LORazepam 2 MG/ML SDV IVPUSH ONE (11:57)
[2019-04-26] MEDS: Sodium Chloride 0.9% 10 ML Syringe FLUSH PRN ×2 (11:58→12:09)
[2019-04-26] MEDS: Sodium Chloride 0.9% 1,000 ML IV SCH ×4 (12:05→23:34)
[2019-04-26] MEDS ORDERED: Sodium Chloride 0.9% 1,000 ML IV SCH (13:15)
[2019-04-26] MEDS ORDERED: Famotidine/Normal Saline 20 MG in Premix Bag 1 BAG IV ONE (15:39)
[2019-04-26] MEDS: LORazepam 2 MG/ML SDV IVPUSH PRN ×2 (16:10→20:28)
[2019-04-26] MEDS: Pantoprazole 40 MG Vial IVPUSH SCH (16:29)
[2019-04-26] MEDS: Thiamine 200 MG/2 ML MDV IV SCH (16:29)
--- NOTE | 2019-04-26 16:58 | EDM.PDOC ---
ED HPI GENERAL MEDICAL PROBLEM - General Stated Complaint: NAUSEAU VOMITING Time Seen by Provider: 04/26/19 11:43 Source of Information: Reports: Patient, EMS, Old Records History Limitations: Reports: Other (cognitive impairment, withdrawal ) - History of Present Illness INITIAL COMMENTS - FREE TEXT/NARRATIVE: Patient is a 63-year-old female who presents today by EMS with concern for vomiting, abdominal pain, and withdrawing from alcohol. Patient is extremely shaky upon arrival and not really able to give much history. She states that it has been 2 days since her last drink. She is unable to tell me how much alcohol she has been drinking. She has been vomiting since last night. She denies any fever, chest pain, shortness of breath, numbness or tingling in her extremities. History very difficult to obtain due to patient's symptoms - Related Data Allergies Allergy/AdvReac Type Severity Reaction Status Date / Time Sulfa (Sulfonamide Allergy Rash Verified 03/29/19 17:04 Antibiotics) Home Meds: Home Meds Calcium Carbonate/Vitamin D3 [Calcium 600 + Vit D 400 Softgl] 1 tab PO Q48H [History] Furosemide [Lasix] 20 mg PO DAILY PRN 10/09/13 [History] Multivitamin [Multi-Vitamin Daily] 1 tab PO DAILY 10/09/13 [History] Aspirin 81 mg PO BID 07/26/18 [History] Ondansetron [Zofran ODT] 4 mg PO TID PRN 07/26/18 [History] DULoxetine [Cymbalta] 20 mg PO DAILY 11/21/18 [History] Acamprosate [Campral] 333 mg PO TID 11/30/18 [History] Spironolactone [Aldactone] 25 mg PO DAILY 03/17/19 [History] traMADol [Ultram] 50 mg PO TID PRN #15 tab 03/18/19 [Rx] Past Medical History HEENT History: Reports: Cataract, Impaired Vision Cardiovascular History: Reports: Hypertension, Other (See Below) Other Cardiovascular History: states has irregular HR at times Respiratory History: Reports: Bronchitis, Recurrent, Pneumonia, Recurrent, Other (See Below) Other Respiratory History: TOBACCO ABUSE Gastrointestinal History: Reports: GERD, Pancreatitis, PUD Other Gastrointestinal History: "prolapsed colon" Genitourinary History: Reports: Urinary Incontinence Musculoskeletal History: Reports: Arthritis, Osteoporosis, Other (See Below) Other Musculoskeletal History: MOVEMENT DISORDER, ATAXIA Neurological History: Reports: Other (See Below) Other Neuro History: DT's, MOVEMENT DISORDER Psychiatric History: Reports: Addiction, Anxiety, Depression, Hallucinations, Other (See Below) Other Psychiatric History: drug and alcohol addiction Endocrine/Metabolic History: Reports: Osteoporosis Hematologic History: Reports: Anemia, Blood Transfusion(s), Other (See Below) Other Hematologic History: leukopenia, THROMBOCYTOPENIA. Pt. here for a blood transfusion and low hemoglobin Immunologic History: Reports: None Oncologic (Cancer) History: Reports: None Dermatologic History: Reports: None - Infectious Disease History Infectious Disease History: Reports: Chicken Pox, Measles, Mumps - Past Surgical History Head Surgeries/Procedures: Reports: None HEENT Surgical History: Reports: None Cardiovascular Surgical History: Reports: None Respiratory Surgical History: Reports: None GI Surgical History: Reports: Colonoscopy, EGD, Other (See Below) Other GI Surgeries/Procedures: HX OF FEEDING TUBE - HAS BEEN REMOVED. Female Surgical History: Reports: None Endocrine Surgical History: Reports: None Neurological Surgical History: Reports: None Musculoskeletal Surgical History: Reports: Other (See Below) Other Musculoskeletal Surgeries/Procedures:: TOE SURGERY Oncologic Surgical History: Reports: None Dermatological Surgical History: Reports: None Social & Family History - Family History Family Medical History: Noncontributory - Tobacco Use Smoking Status *Q: Current Status Unknown - Caffeine Use Caffeine Use: Reports: Coffee Other Caffeine Use: 2-3 CUPS DAILY - Alcohol Use Alcohol Use History: Yes - Recreational Drug Use Recreational Drug Use: No - Living Situation & Occupation Living situation: Reports: Alone Occupation: Disabled ED ROS GENERAL - Review of Systems Review Of Systems: Unable To Obtain ED EXAM, GENERAL - Physical Exam Exam: See Below Free Text/Narrative:: Gen.: Alert, cooperative, but slurring her words and very difficult to understand. Head atraumatic. Throat is without erythema, mucous members are dry and there is a distinct smell of vomitus present. No nasal congestion is noted. Neck is supple. Heart is tachycardic and I do not hear murmur. Lungs are clear throughout with no wheezes or crackles. Abdomen positive bowel sounds, soft, diffusely tender with no rebound or guarding. Less tender with distraction. Peripheral pulses +2 in the upper and lower extremities and she has no lower extremity edema. Skin is dry but there are no obvious lesions or rashes. She has equal strength [id number] and her gait is significantly wobbly. Tremor of both of her hands is extremely marked. She is oriented to person, place, time and events, although a little fuzzy about the last couple days it would seem. EKG INTERPRETATION Comparison: No Change EKG Interpretation Comments: QTC borderline prolonged Course - Vital Signs Text/Narrative:: Upon admission, vomiting, tachycardic, hypertensive, extremely tremulous and not speaking very clearly. Difficulty obtaining IV access so anesthesia was called. Fluids ordered and mayer labs. No clear indication for imaging at this time--lungs clear, abdomen tender but no signs peritonitis, mentation at relative baseline for her (have met patient before). Last Recorded V/S: Last Vital Signs Temp 36.6 C 04/26/19 18:10 Pulse 140 H 04/26/19 11:38 Resp 20 04/26/19 18:10 BP 130/74 04/26/19 18:10 Pulse Ox 96 04/26/19 18:10 - Orders/Labs/Meds Orders: Active Orders 24 hr Category Date Time Status CIWAA Assessment [RC] ASDIRECTED Care 04/26/19 15:41 Active EKG Documentation Completion [RC] ASDIRECTED Care 04/26/19 13:06 Active LORazepam [Ativan] Med 04/26/19 15:39 Active 1 - 3 mg IVPUSH Q4H PRN Pantoprazole [ProTONIX IV] Med 04/26/19 15:45 Active 40 mg IVPUSH DAILY Sodium Chloride 0.9% [Normal Saline] 1,000 ml Med 04/26/19 12:00 Active IV ASDIRECTED Sodium Chloride 0.9% [Normal Saline] 1,000 ml Med 04/26/19 13:15 Active IV ASDIRECTED Sodium Chloride 0.9% [Normal Saline] 1,000 ml Med 04/26/19 16:00 Active IV ASDIRECTED Sodium Chloride 0.9% [Saline Flush] Med 04/26/19 11:58 Active 10 ml FLUSH ASDIRECTED PRN Thiamine [Vitamin B-1] Med 04/26/19 15:45 Active 100 mg IV DAILY Saline Lock Insert [OM.PC] Routine Oth 04/26/19 11:58 Ordered EKG 12 Lead [EK] Routine Ther 04/26/19 13:06 Ordered Medication Orders Acetaminophen (Tylenol Extra Strength) 500 mg PO Q4H PRN PRN Reason: Pain (Mild 1-3)/fever Sodium Chloride (Normal Saline) 1,000 mls @ 999 mls/hr IV ASDIRECTED [facility] Last Admin: 04/26/19 15:01 Dose: 500 mls/hr Infusion: 04/26/19 13:06 Dose: 999 mls/hr Admin: 04/26/19 12:05 Dose: 999 mls/hr Sodium Chloride (Normal Saline) 1,000 mls @ 999 mls/hr IV ASDIRECTED [facility] Last Admin: 04/26/19 13:13 Dose: 999 mls/hr Sodium Chloride (Normal Saline) 1,000 mls @ 150 mls/hr IV ASDIRECTED [facility] Last Admin: 04/26/19 17:10 Dose: 150 mls/hr Lorazepam (Ativan) 1 - 3 mg IVPUSH Q4H PRN; Protocol PRN Reason: Withdrawal Symptoms Last Admin: 04/26/19 16:10 Dose: 2 mg Pantoprazole Sodium (Protonix Iv) 40 mg IVPUSH DAILY [facility] Last Admin: 04/26/19 16:29 Dose: 40 mg Sodium Chloride (Saline Flush) 10 ml FLUSH ASDIRECTED PRN PRN Reason: Keep Vein Open Last Admin: 04/26/19 12:09 Dose: 10 ml Admin: 04/26/19 11:58 Dose: 10 ml Thiamine HCl (Vitamin B-1) 100 mg IV DAILY [facility] Last Admin: 04/26/19 16:29 Dose: 100 mg Labs: Laboratory Tests 04/26/19 04/26/19 04/26/19 Range/Units 11:45 11:45 11:45 WBC 13.9 H (4.5-12.0) X10-3/uL RBC 3.73 (3.23-5.20) x10(6)uL Hgb 11.3 L (11.5-15.5) g/dL Hct 34.6 (30.0-51.3) % MCV 92.9 (80-96) fL MCH 30.2 (27.7-33.6) pg MCHC 32.5 (32.2-35.4) g/dL RDW 14.6 (11.5-15.5) % Plt Count 284 (125-369) X10(3)uL MPV 7.9 (7.4-10.4) fL Add Manual Diff Yes Neutrophils % (Manual) 87 H (46-82) % Lymphocytes % (Manual) 11 L (13-37) % Monocytes % (Manual) 2 L (4-12) % PT (8.7-11.1) INR (0.89-1.13) POC VBG pH (7.31-7.41) POC VBG pCO2 (41-51) mmHG POC VBG HCO3 (23-28) mmol/L POC VBG Total CO2 (24-29) mmol/L POC VBG Base Excess (-2-3) mmol/L Sodium 133 L (135-145) mmol/L Potassium 4.3 (3.5-5.3) mmol/L Chloride 86 L* D (100-110) mmol/L Carbon Dioxide 16 L (21-32) mmol/L BUN 39 H D (7-18) mg/dL Creatinine 2.2 H* (0.55-1.02) mg/dL Est Cr Clr Drug Dosing TNP Estimated GFR (MDRD) 22 L (>60) BUN/Creatinine Ratio 17.7 (9-20) Glucose 224 H D (80-116) mg/dL Lactic Acid (0.4-2.2) mmol/L Calcium 8.5 L (8.6-10.2) mg/dL Magnesium 2.3 (1.8-2.5) mg/dL Total Bilirubin 0.6 (0.1-1.3) mg/dL AST 79 H D (5-25) IU/L ALT 41 H D (12-36) U/L Alkaline Phosphatase 130 H (56-112) IU/L Troponin I < 0.017 L (<0.017-0.056) ng/mL C-Reactive Protein (0.5-0.9) mg/dL Total Protein 7.9 (6.0-8.0) g/dL Albumin 4.0 (3.2-4.6) g/dL Globulin 3.9 g/dL Albumin/Globulin Ratio 1.0 Amylase (25-115) U/L Ethyl Alcohol < 0.03 (<0.03) % 04/26/19 04/26/1919 Range/Units 11:45 11:45 11:51 WBC (4.5-12.0) X10-3/uL RBC (3.23-5.20) x10(6)uL Hgb (11.5-15.5) g/dL Hct (30.0-51.3) % MCV (80-96) fL MCH (27.7-33.6) pg MCHC (32.2-35.4) g/dL RDW (11.5-15.5) % Plt Count (125-369) X10(3)uL MPV (7.4-10.4) fL Add Manual Diff Neutrophils % (Manual) (46-82) % Lymphocytes % (Manual) (13-37) % Monocytes % (Manual) (4-12) % PT 10.2 (8.7-11.1) INR 1.05 (0.89-1.13) POC VBG pH 7.42 H (7.31-7.41) POC VBG pCO2 23.5 L (41-51) mmHG POC VBG HCO3 15.3 L (23-28) mmol/L POC VBG Total CO2 16 L (24-29) mmol/L POC VBG Base Excess -9 L (-2-3) mmol/L Sodium (135-145) mmol/L Potassium (3.5-5.3) mmol/L Chloride (100-110) mmol/L Carbon Dioxide (21-32) mmol/L BUN (7-18) mg/dL Creatinine (0.55-1.02) mg/dL Est Cr Clr Drug Dosing Estimated GFR (MDRD) (>60) BUN/Creatinine Ratio (9-20) Glucose (80-116) mg/dL Lactic Acid 7.0 H* (0.4-2.2) mmol/L Calcium (8.6-10.2) mg/dL Magnesium (1.8-2.5) mg/dL Total Bilirubin (0.1-1.3) mg/dL AST (5-25) IU/L ALT (12-36) U/L Alkaline Phosphatase (56-112) IU/L Troponin I (<0.017-0.056) ng/mL C-Reactive Protein (0.5-0.9) mg/dL Total Protein (6.0-8.0) g/dL Albumin (3.2-4.6) g/dL Globulin g/dL Albumin/Globulin Ratio Amylase (25-115) U/L Ethyl Alcohol (<0.03) % 04/26/19 04/26/19 04/26/19 Range/Units 11:58 14:50 14:50 WBC (4.5-12.0) X10-3/uL RBC (3.23-5.20) x10(6)uL Hgb (11.5-15.5) g/dL Hct (30.0-51.3) % MCV (80-96) fL MCH (27.7-33.6) pg MCHC (32.2-35.4) g/dL RDW (11.5-15.5) % Plt Count (125-369) X10(3)uL MPV (7.4-10.4) fL Add Manual Diff Neutrophils % (Manual) (46-82) % Lymphocytes % (Manual) (13-37) % Monocytes % (Manual) (4-12) % PT (8.7-11.1) INR (0.89-1.13) POC VBG pH (7.31-7.41) POC VBG pCO2 (41-51) mmHG POC VBG HCO3 (23-28) mmol/L POC VBG Total CO2 (24-29) mmol/L POC VBG Base Excess (-2-3) mmol/L Sodium (135-145) mmol/L Potassium (3.5-5.3) mmol/L Chloride (100-110) mmol/L Carbon Dioxide (21-32) mmol/L BUN (7-18) mg/dL Creatinine (0.55-1.02) mg/dL Est Cr Clr Drug Dosing Estimated GFR (MDRD) (>60) BUN/Creatinine Ratio (9-20) Glucose (80-116) mg/dL Lactic Acid 2.2 (0.4-2.2) mmol/L Calcium (8.6-10.2) mg/dL Magnesium (1.8-2.5) mg/dL Total Bilirubin (0.1-1.3) mg/dL AST (5-25) IU/L ALT (12-36) U/L Alkaline Phosphatase (56-112) IU/L Troponin I (<0.017-0.056) ng/mL C-Reactive Protein 0.7 (0.5-0.9) mg/dL Total Protein (6.0-8.0) g/dL Albumin (3.2-4.6) g/dL Globulin g/dL Albumin/Globulin Ratio Amylase 219 H (25-115) U/L Ethyl Alcohol (<0.03) % 04/26/19 Range/Units 14:59 WBC (4.5-12.0) X10-3/uL RBC (3.23-5.20) x10(6)uL Hgb (11.5-15.5) g/dL Hct (30.0-51.3) % MCV (80-96) fL MCH (27.7-33.6) pg MCHC (32.2-35.4) g/dL RDW (11.5-15.5) % Plt Count (125-369) X10(3)uL MPV (7.4-10.4) fL Add Manual Diff Neutrophils % (Manual) (46-82) % Lymphocytes % (Manual) (13-37) % Monocytes % (Manual) (4-12) % PT (8.7-11.1) INR (0.89-1.13) POC VBG pH 7.44 H (7.31-7.41) POC VBG pCO2 28.1 L (41-51) mmHG POC VBG HCO3 19.0 L (23-28) mmol/L POC VBG Total CO2 20 L (24-29) mmol/L POC VBG Base Excess -5 L (-2-3) mmol/L Sodium (135-145) mmol/L Potassium (3.5-5.3) mmol/L Chloride (100-110) mmol/L Carbon Dioxide (21-32) mmol/L BUN (7-18) mg/dL Creatinine (0.55-1.02) mg/dL Est Cr Clr Drug Dosing Estimated GFR (MDRD) (>60) BUN/Creatinine Ratio (9-20) Glucose (80-116) mg/dL Lactic Acid (0.4-2.2) mmol/L Calcium (8.6-10.2) mg/dL Magnesium (1.8-2.5) mg/dL Total Bilirubin (0.1-1.3) mg/dL AST (5-25) IU/L ALT (12-36) U/L Alkaline Phosphatase (56-112) IU/L Troponin I (<0.017-0.056) ng/mL C-Reactive Protein (0.5-0.9) mg/dL Total Protein (6.0-8.0) g/dL Albumin (3.2-4.6) g/dL Globulin g/dL Albumin/Globulin Ratio Amylase (25-115) U/L Ethyl Alcohol (<0.03) % Meds: Medications Generic Name Dose Route Start Last Admin Trade Name Freq PRN Reason Stop Dose Admin Acetaminophen 500 mg 04/26/19 18:21 Tylenol Extra Strength PO Q4H PRN Pain (Mild 1-3)/fever Sodium Chloride 1,000 mls @ 999 mls/hr 04/26/19 12:00 04/26/19 15:01 Normal Saline IV 500 mls/hr ASDIRECTED ROMEL Administration Sodium Chloride 1,000 mls @ 999 mls/hr 04/26/19 13:15 04/26/19 13:13 Normal Saline IV 999 mls/hr ASDIRECTED ROMEL Administration Sodium Chloride 1,000 mls @ 150 mls/hr 04/26/19 16:00 04/26/19 17:10 Normal Saline IV 150 mls/hr ASDIRECTED ROMEL Administration Lorazepam 1 - 3 mg 04/26/19 15:39 04/26/19 16:10 Ativan IVPUSH 2 mg Q4H PRN Administration Withdrawal Symptoms Protocol Pantoprazole Sodium 40 mg 04/26/19 15:45 04/26/19 16:29 Protonix Iv IVPUSH 40 mg DAILY ROMEL Administration Sodium Chloride 10 ml 04/26/19 11:58 04/26/19 12:09 Saline Flush FLUSH 10 ml ASDIRECTED PRN Administration Keep Vein Open Thiamine HCl 100 mg 04/26/19 15:45 04/26/19 16:29 Vitamin B-1 IV 100 mg DAILY ROMEL Administration Discontinued Medications Generic Name Dose Route Start Last Admin Trade Name Freq PRN Reason Stop Dose Admin Famotidine 20 mg/ Premix 50 mls @ 200 mls/hr 04/26/19 15:39 04/26/19 16:20 IV 04/26/19 15:40 200 mls/hr ONETIME ONE Administration Lorazepam 2 mg 04/26/19 11:57 04/26/19 12:08 Ativan IVPUSH 04/26/19 11:58 2 mg ONETIME ONE Administration - Re-Assessments/Exams Free Text/Narrative Re-Assessment/Exam: 04/26/19 patient noted to be quite sleepy after ativan, resting comfortably. labs reviewed - leukocytosis probably from stress reaction, given normal CRP. Anemia appears to be at baseline. Elevated creatinine, hypochloremic and metabolic acidosis. Significant lactic acidosis. Mild bump in LFTs. Repeat VBG and Lactic acid in 3 hours. Continue with aggressive fluid resuscitation. Patient still tachycardic. NPO. Free Text/Narrative Re-Assessment/Exam: 04/26/19 patient has been intermittently sleeping. Diarrhea and urine a couple times since arrival. Abdominal exam c/o pain, but not able to focalize any tenderness, and no grimace when distracted. repeat lactic acid normalized, and acid-base status stable. Will slow fluids, CIWA ordered, meds for alcoholic gastritis, thiamine. Plan for admission here on telemetry Free Text/Narrative Re-Assessment/Exam: 04/26/19 patient has remained stable, somnalent after second round of ativan ( CIWA 18), may need to decrease score to account for tremor. Abdominal exam benign. Tremor greatly improved, but present (has known tremor at baseline) reviewed [facility] chart, did not have significant withdrawal at last admission Admission: IVF 150ml/hr given protonix, pepcid, thiamine in ED repeat CMP, CBC in AM no indications for antibiotics at this time check UA NPO overnight CIWA, Ativan protocol Departure - Departure Time of Disposition: 16:10 Disposition: Admitted As Inpatient 65 Condition: Poor Clinical Impression: Alcohol withdrawal, Vomiting, Long QT interval, Metabolic alkalosis, Lactic acidosis, Leukocytosis, Dehydration, severe, Diarrhea Gastritis Qualifiers: Gastritis type: unspecified gastritis Chronicity: unspecified Gastritis bleeding: without bleeding Qualified Code(s): K29.70 - Gastritis, unspecified, without bleeding - Discharge Information *PRESCRIPTION DRUG MONITORING PROGRAM REVIEWED*: Not Applicable *COPY OF PRESCRIPTION DRUG MONITORING REPORT IN PATIENT KISHAN: Not Applicable - My Orders Last 24 Hours: My Active Orders 04/26/19 11:58 Sodium Chloride 0.9% [Saline Flush] 10 ml FLUSH ASDIRECTED PRN Saline Lock Insert [OM.PC] Routine 04/26/19 12:00 Sodium Chloride 0.9% [Normal Saline] 1,000 ml IV ASDIRECTED 04/26/19 13:06 EKG Documentation Completion [RC] ASDIRECTED EKG 12 Lead [EK] Routine 04/26/19 13:15 Sodium Chloride 0.9% [Normal Saline] 1,000 ml IV ASDIRECTED 04/26/19 15:39 LORazepam [Ativan] 1 - 3 mg IVPUSH Q4H PRN 04/26/19 15:41 CIWAA Assessment [RC] ASDIRECTED 04/26/19 15:45 Pantoprazole [ProTONIX IV] 40 mg IVPUSH DAILY Thiamine [Vitamin B-1] 100 mg IV DAILY 04/26/19 16:00 Sodium Chloride 0.9% [Normal Saline] 1,000 ml IV ASDIRECTED - Assessment/Plan Last 24 Hours: My Active Orders 04/26/19 11:58 Sodium Chloride 0.9% [Saline Flush] 10 ml FLUSH ASDIRECTED PRN Saline Lock Insert [OM.PC] Routine 04/26/19 12:00 Sodium Chloride 0.9% [Normal Saline] 1,000 ml IV ASDIRECTED 04/26/19 13:06 EKG Documentation Completion [RC] ASDIRECTED EKG 12 Lead [EK] Routine 04/26/19 13:15 Sodium Chloride 0.9% [Normal Saline] 1,000 ml IV ASDIRECTED 04/26/19 15:39 LORazepam [Ativan] 1 - 3 mg IVPUSH Q4H PRN 04/26/19 15:41 CIWAA Assessment [RC] ASDIRECTED 04/26/19 15:45 Pantoprazole [ProTONIX IV] 40 mg IVPUSH DAILY Thiamine [Vitamin B-1] 100 mg IV DAILY 04/26/19 16:00 Sodium Chloride 0.9% [Normal Saline] 1,000 ml IV ASDIRECTED
[2019-04-27] MEDS: LORazepam 2 MG/ML SDV IVPUSH PRN ×5 (00:01→19:24)
[2019-04-27] MEDS: Sodium Chloride 0.9% 10 ML Syringe FLUSH PRN (05:16)
[2019-04-27] MEDS: Sodium Chloride 0.9% 1,000 ML IV SCH ×2 (06:18→13:52)
--- NOTE | 2019-04-27 09:04 | PCM.HP.2 ---
H&P History of Present Illness - General Date of Service: 04/27/19 Admit Problem/Dx: Admission Diagnosis/Problem Admission Diagnosis/Problem Alcohol withdrawal syndrome Source of Information: Old Records History Limitations: Reports: Other (Very shaky and can't understand her speech) - History of Present Illness Initial Comments - Free Text/Narative: This is a 63-year-old female patient with chronic alcoholism. She tries to talk but her speech is very shaky and I can understand most of what she says. From the ER note states she could drink in 2 days ago started vomiting and came into the ER withdrawing. She can't really tell is going on his moans. general Pain Score (Numeric/FACES): 3 - Related Data Allergies/Adverse Reactions: Allergies Allergy/AdvReac Type Severity Reaction Status Date / Time Sulfa (Sulfonamide Allergy Rash Verified 03/29/19 17:04 Antibiotics) Home Medications: Home Meds Calcium Carbonate/Vitamin D3 [Calcium 600 + Vit D 400 Softgl] 1 tab PO Q48H [History] Furosemide [Lasix] 20 mg PO DAILY PRN 10/09/13 [History] Multivitamin [Multi-Vitamin Daily] 1 tab PO DAILY 10/09/13 [History] Aspirin 81 mg PO BID 07/26/18 [History] Ondansetron [Zofran ODT] 4 mg PO TID PRN 07/26/18 [History] DULoxetine [Cymbalta] 20 mg PO DAILY 11/21/18 [History] Acamprosate [Campral] 333 mg PO TID 11/30/18 [History] Spironolactone [Aldactone] 25 mg PO DAILY 03/17/19 [History] traMADol [Ultram] 50 mg PO TID PRN #15 tab 03/18/19 [Rx] Past Medical History HEENT History: Reports: Cataract, Impaired Vision Cardiovascular History: Reports: Hypertension, Other (See Below) Other Cardiovascular History: states has irregular HR at times Respiratory History: Reports: Bronchitis, Recurrent, Pneumonia, Recurrent, Other (See Below) Other Respiratory History: TOBACCO ABUSE Gastrointestinal History: Reports: GERD, Pancreatitis, PUD Other Gastrointestinal History: "prolapsed colon" Genitourinary History: Reports: Urinary Incontinence Musculoskeletal History: Reports: Arthritis, Osteoporosis, Other (See Below) Other Musculoskeletal History: MOVEMENT DISORDER, ATAXIA Neurological History: Reports: Other (See Below) Other Neuro History: DT's, MOVEMENT DISORDER Psychiatric History: Reports: Addiction, Anxiety, Depression, Hallucinations, Other (See Below) Other Psychiatric History: drug and alcohol addiction Endocrine/Metabolic History: Reports: Osteoporosis Hematologic History: Reports: Anemia, Blood Transfusion(s), Other (See Below) Other Hematologic History: leukopenia, THROMBOCYTOPENIA. Pt. here for a blood transfusion and low hemoglobin Immunologic History: Reports: None Oncologic (Cancer) History: Reports: None Dermatologic History: Reports: None - Infectious Disease History Infectious Disease History: Reports: Chicken Pox, Measles, Mumps - Past Surgical History Head Surgeries/Procedures: Reports: None HEENT Surgical History: Reports: None Cardiovascular Surgical History: Reports: None Respiratory Surgical History: Reports: None GI Surgical History: Reports: Colonoscopy, EGD, Other (See Below) Other GI Surgeries/Procedures: HX OF FEEDING TUBE - HAS BEEN REMOVED. Female Surgical History: Reports: None Endocrine Surgical History: Reports: None Neurological Surgical History: Reports: None Musculoskeletal Surgical History: Reports: Other (See Below) Other Musculoskeletal Surgeries/Procedures:: TOE SURGERY Oncologic Surgical History: Reports: None Dermatological Surgical History: Reports: None Social & Family History - Family History Family Medical History: Noncontributory - Tobacco Use Smoking Status *Q: Current Status Unknown - Caffeine Use Caffeine Use: Reports: Coffee Other Caffeine Use: 2-3 CUPS DAILY - Recreational Drug Use Recreational Drug Use: No - Living Situation & Occupation Living situation: Reports: Alone Occupation: Disabled H&P Review of Systems - Review of Systems: Review Of Systems: Unable To Obtain Exam - Exam Exam: See Below - Vital Signs Vital Signs: Last Vital Signs Temp 98 F 04/27/19 04:00 Pulse 120 H 04/27/19 04:00 Resp 18 04/27/19 04:00 BP 144/70 H 04/27/19 04:00 Pulse Ox 97 04/27/19 04:00 Weight: 99 lb 3.2 oz - Exam General: Alert, Cooperative, Other (Shaking and tremulous) HEENT: Hearing Intact, Mucosa Moist & [place], TMs Clear, Other (Erythema pharynx and mouth is dry) Neck: Supple, Trachea Midline Lungs: Clear to Auscultation, Normal Respiratory Effort Cardiovascular: Regular Rate, Regular Rhythm, Tachycardia. No: Systolic Murmur GI/Abdominal Exam: Normal Bowel Sounds, Soft, No Distention, Other (She has no tenderness when I examine her. When asked if she has tenderness and examiner she shakes her head yes.) Back Exam: Normal Inspection Extremities: No Pedal Edema Skin: Warm, Dry, Intact Neuro Extensive - Mental Status: Alert. No: Normal Cognition Psychiatric: Alert. No: Normal Affect, Normal Mood - Patient Data Lab Results Last 24 hrs: Laboratory Results - last 24 hr 04/26/19 04/26/19 04/26/19 Range/Units 11:45 11:45 11:45 WBC 13.9 H (4.5-12.0) X10-3/uL RBC 3.73 (3.23-5.20) x10(6)uL Hgb 11.3 L (11.5-15.5) g/dL Hct 34.6 (30.0-51.3) % MCV 92.9 (80-96) fL MCH 30.2 (27.7-33.6) pg MCHC 32.5 (32.2-35.4) g/dL RDW 14.6 (11.5-15.5) % Plt Count 284 (125-369) X10(3)uL MPV 7.9 (7.4-10.4) fL Add Manual Diff Yes Neutrophils % (Manual) 87 H (46-82) % Lymphocytes % (Manual) 11 L (13-37) % Monocytes % (Manual) 2 L (4-12) % PT (8.7-11.1) INR (0.89-1.13) POC VBG pH (7.31-7.41) POC VBG pCO2 (41-51) mmHG POC VBG HCO3 (23-28) mmol/L POC VBG Total CO2 (24-29) mmol/L POC VBG Base Excess (-2-3) mmol/L Sodium 133 L (135-145) mmol/L Potassium 4.3 (3.5-5.3) mmol/L Chloride 86 L* D (100-110) mmol/L Carbon Dioxide 16 L (21-32) mmol/L BUN 39 H D (7-18) mg/dL Creatinine 2.2 H* (0.55-1.02) mg/dL Est Cr Clr Drug Dosing TNP Estimated GFR (MDRD) 22 L (>60) BUN/Creatinine Ratio 17.7 (9-20) Glucose 224 H D (80-116) mg/dL Lactic Acid (0.4-2.2) mmol/L Calcium 8.5 L (8.6-10.2) mg/dL Phosphorus (2.6-4.6) mg/dL Magnesium 2.3 (1.8-2.5) mg/dL Total Bilirubin 0.6 (0.1-1.3) mg/dL AST 79 H D (5-25) IU/L ALT 41 H D (12-36) U/L Alkaline Phosphatase 130 H (56-112) IU/L Troponin I < 0.017 L (<0.017-0.056) ng/mL C-Reactive Protein (0.5-0.9) mg/dL Total Protein 7.9 (6.0-8.0) g/dL Albumin 4.0 (3.2-4.6) g/dL Globulin 3.9 g/dL Albumin/Globulin Ratio 1.0 Amylase (25-115) U/L Ethyl Alcohol < 0.03 (<0.03) % 04/26/19 04/26/19 04/26/19 Range/Units 11:45 11:45 11:51 WBC (4.5-12.0) X10-3/uL RBC (3.23-5.20) x10(6)uL Hgb (11.5-15.5) g/dL Hct (30.0-51.3) % MCV (80-96) fL MCH (27.7-33.6) pg MCHC (32.2-35.4) g/dL RDW (11.5-15.5) % Plt Count (125-369) X10(3)uL MPV (7.4-10.4) fL Add Manual Diff Neutrophils % (Manual) (46-82) % Lymphocytes % (Manual) (13-37) % Monocytes % (Manual) (4-12) % PT 10.2 (8.7-11.1) INR 1.05 (0.89-1.13) POC VBG pH 7.42 H (7.31-7.41) POC VBG pCO2 23.5 L (41-51) mmHG POC VBG HCO3 15.3 L (23-28) mmol/L POC VBG Total CO2 16 L (24-29) mmol/L POC VBG Base Excess -9 L (-2-3) mmol/L Sodium (135-145) mmol/L Potassium (3.5-5.3) mmol/L Chloride (100-110) mmol/L Carbon Dioxide (21-32) mmol/L BUN (7-18) mg/dL Creatinine (0.55-1.02) mg/dL Est Cr Clr Drug Dosing Estimated GFR (MDRD) (>60) BUN/Creatinine Ratio (9-20) Glucose (80-116) mg/dL Lactic Acid 7.0 H* (0.4-2.2) mmol/L Calcium (8.6-10.2) mg/dL Phosphorus (2.6-4.6) mg/dL Magnesium (1.8-2.5) mg/dL Total Bilirubin (0.1-1.3) mg/dL AST (5-25) IU/L ALT (12-36) U/L Alkaline Phosphatase (56-112) IU/L Troponin I (<0.017-0.056) ng/mL C-Reactive Protein (0.5-0.9) mg/dL Total Protein (6.0-8.0) g/dL Albumin (3.2-4.6) g/dL Globulin g/dL Albumin/Globulin Ratio Amylase (25-115) U/L Ethyl Alcohol (<0.03) % 04/26/19 04/26/19 04/26/19 Range/Units 11:58 14:50 14:50 WBC (4.5-12.0) X10-3/uL RBC (3.23-5.20) x10(6)uL Hgb (11.5-15.5) g/dL Hct (30.0-51.3) % MCV (80-96) fL MCH (27.7-33.6) pg MCHC (32.2-35.4) g/dL RDW (11.5-15.5) % Plt Count (125-369) X10(3)uL MPV (7.4-10.4) fL Add Manual Diff Neutrophils % (Manual) (46-82) % Lymphocytes % (Manual) (13-37) % Monocytes % (Manual) (4-12) % PT (8.7-11.1) INR (0.89-1.13) POC VBG pH (7.31-7.41) POC VBG pCO2 (41-51) mmHG POC VBG HCO3 (23-28) mmol/L POC VBG Total CO2 (24-29) mmol/L POC VBG Base Excess (-2-3) mmol/L Sodium (135-145) mmol/L Potassium (3.5-5.3) mmol/L Chloride (100-110) mmol/L Carbon Dioxide (21-32) mmol/L BUN (7-18) mg/dL Creatinine (0.55-1.02) mg/dL Est Cr Clr Drug Dosing Estimated GFR (MDRD) (>60) BUN/Creatinine Ratio (9-20) Glucose (80-116) mg/dL Lactic Acid 2.2 (0.4-2.2) mmol/L Calcium (8.6-10.2) mg/dL Phosphorus (2.6-4.6) mg/dL Magnesium (1.8-2.5) mg/dL Total Bilirubin (0.1-1.3) mg/dL AST (5-25) IU/L ALT (12-36) U/L Alkaline Phosphatase (56-112) IU/L Troponin I (<0.017-0.056) ng/mL C-Reactive Protein 0.7 (0.5-0.9) mg/dL Total Protein (6.0-8.0) g/dL Albumin (3.2-4.6) g/dL Globulin g/dL Albumin/Globulin Ratio Amylase 219 H (25-115) U/L Ethyl Alcohol (<0.03) % 04/26/19 04/26/19 04/26/19 Range/Units 14:59 18:06 18:06 WBC (4.5-12.0) X10-3/uL RBC (3.23-5.20) x10(6)uL Hgb (11.5-15.5) g/dL Hct (30.0-51.3) % MCV (80-96) fL MCH (27.7-33.6) pg MCHC (32.2-35.4) g/dL RDW (11.5-15.5) % Plt Count (125-369) X10(3)uL MPV (7.4-10.4) fL Add Manual Diff Neutrophils % (Manual) (46-82) % Lymphocytes % (Manual) (13-37) % Monocytes % (Manual) (4-12) % PT (8.7-11.1) INR (0.89-1.13) POC VBG pH 7.44 H (7.31-7.41) POC VBG pCO2 28.1 L (41-51) mmHG POC VBG HCO3 19.0 L (23-28) mmol/L POC VBG Total CO2 20 L (24-29) mmol/L POC VBG Base Excess -5 L (-2-3) mmol/L Sodium 139 (135-145) mmol/L Potassium 4.1 (3.5-5.3) mmol/L Chloride 100 D (100-110) mmol/L Carbon Dioxide 23 (21-32) mmol/L BUN 29 H D (7-18) mg/dL Creatinine 1.2 H (0.55-1.02) mg/dL Est Cr Clr Drug Dosing TNP Estimated GFR (MDRD) 45 L (>60) BUN/Creatinine Ratio 24.2 H (9-20) Glucose 109 D (80-116) mg/dL Lactic Acid (0.4-2.2) mmol/L Calcium 7.2 L (8.6-10.2) mg/dL Phosphorus 2.9 (2.6-4.6) mg/dL Magnesium (1.8-2.5) mg/dL Total Bilirubin (0.1-1.3) mg/dL AST (5-25) IU/L ALT (12-36) U/L Alkaline Phosphatase (56-112) IU/L Troponin I (<0.017-0.056) ng/mL C-Reactive Protein (0.5-0.9) mg/dL Total Protein (6.0-8.0) g/dL Albumin (3.2-4.6) g/dL Globulin g/dL Albumin/Globulin Ratio Amylase (25-115) U/L Ethyl Alcohol (<0.03) % 04/27/19 04/27/19 Range/Units 07:10 07:10 WBC 7.0 (4.5-12.0) X10-3/uL RBC 2.89 L (3.23-5.20) x10(6)uL Hgb 9.0 L (11.5-15.5) g/dL Hct 26.6 L (30.0-51.3) % MCV 92.2 (80-96) fL MCH 31.2 (27.7-33.6) pg MCHC 33.8 (32.2-35.4) g/dL RDW 14.9 (11.5-15.5) % Plt Count 191 (125-369) X10(3)uL MPV (7.4-10.4) fL Add Manual Diff Neutrophils % (Manual) (46-82) % Lymphocytes % (Manual) (13-37) % Monocytes % (Manual) (4-12) % PT (8.7-11.1) INR (0.89-1.13) POC VBG pH (7.31-7.41) POC VBG pCO2 (41-51) mmHG POC VBG HCO3 (23-28) mmol/L POC VBG Total CO2 (24-29) mmol/L POC VBG Base Excess (-2-3) mmol/L Sodium 143 (135-145) mmol/L Potassium 3.1 L D (3.5-5.3) mmol/L Chloride 106 D (100-110) mmol/L Carbon Dioxide 27 (21-32) mmol/L BUN 12 D (7-18) mg/dL Creatinine 0.7 (0.55-1.02) mg/dL Est Cr Clr Drug Dosing 57.67 Estimated GFR (MDRD) > 60 (>60) BUN/Creatinine Ratio 17.1 (9-20) Glucose 94 (80-116) mg/dL Lactic Acid (0.4-2.2) mmol/L Calcium 7.5 L (8.6-10.2) mg/dL Phosphorus (2.6-4.6) mg/dL Magnesium (1.8-2.5) mg/dL Total Bilirubin 0.5 (0.1-1.3) mg/dL AST 52 H D (5-25) IU/L ALT 30 D (12-36) U/L Alkaline Phosphatase 91 (56-112) IU/L Troponin I (<0.017-0.056) ng/mL C-Reactive Protein (0.5-0.9) mg/dL Total Protein 5.8 L (6.0-8.0) g/dL Albumin 2.9 L (3.2-4.6) g/dL Globulin 2.9 g/dL Albumin/Globulin Ratio 1.0 Amylase (25-115) U/L Ethyl Alcohol (<0.03) % Result Diagrams: 04/27/19 07:10 04/27/19 07:10 - Problem List (1) Alcohol withdrawal SNOMED Code(s): 138187505 ICD Code: F10.239 - ALCOHOL DEPENDENCE WITH WITHDRAWAL, UNSPECIFIED Status : Acute Current Visit: Yes (2) Elevated amylase SNOMED Code(s): 189719658 ICD Code: R74.8 - ABNORMAL LEVELS OF OTHER SERUM ENZYMES Status: Acute Current Visit: Yes (3) Acute kidney injury SNOMED Code(s): 42805867, 44786218 ICD Code: N17.9 - ACUTE KIDNEY FAILURE, UNSPECIFIED Status: Acute Current Visit: Yes (4) Alcohol withdrawal syndrome SNOMED Code(s): 511439059 ICD Code: F10.239 - ALCOHOL DEPENDENCE WITH WITHDRAWAL, UNSPECIFIED Status : Acute Current Visit: No (5) Cyclical vomiting Status: Acute Current Visit: No Qualifiers: Vomiting Intractability: non-intractable (6) Dehydration SNOMED Code(s): 67510459 ICD Code: E86.0 - DEHYDRATION Status: Acute Current Visit: No Problem List Initiated/Reviewed/Updated: Yes Orders Last 24hrs: Active Orders 24 hr Category Date Time Status Patient Status [ADT] Routine ADT 04/26/19 18:21 Active CIWAA Assessment [RC] 00,04,08,12,16,20 Care 04/26/19 15:41 Active Cardiac Monitoring [RC] CONTINUOUS Care 04/26/19 18:21 Active Notify Provider Vital Signs [RC] ASDIRECTED Care 04/26/19 18:21 Active Pulse Oximetry [RC] PRN Care 04/26/19 18:21 Active Up With Assistance [RC] ASDIRECTED Care 04/26/19 18:21 Active VTE/DVT Education [RC] Per Unit Routine Care 04/26/19 18:21 Active Vital Signs [RC] 00,04,08,12,16,20 Care 04/26/19 18:21 Active UA W/MICROSCOPIC [URIN] Stat Lab 04/26/19 18:21 Ordered Acetaminophen [Tylenol Extra Strength] Med 04/26/19 18:21 Active 500 mg PO Q4H PRN LORazepam [Ativan] Med 04/26/19 15:39 Active 1 - 3 mg IVPUSH Q4H PRN Pantoprazole [ProTONIX IV] Med 04/26/19 15:45 Active 40 mg IVPUSH DAILY Sodium Chloride 0.9% [Normal Saline] 1,000 ml Med 04/26/19 12:00 Active IV ASDIRECTED Sodium Chloride 0.9% [Normal Saline] 1,000 ml Med 04/26/19 13:15 Active IV ASDIRECTED Sodium Chloride 0.9% [Normal Saline] 1,000 ml Med 04/26/19 16:00 Active IV ASDIRECTED Sodium Chloride 0.9% [Saline Flush] Med 04/26/19 11:58 Active 10 ml FLUSH ASDIRECTED PRN Thiamine [Vitamin B-1] Med 04/26/19 15:45 Active 100 mg IV DAILY Saline Lock Insert [OM.PC] Routine Oth 04/26/19 11:58 Ordered Resuscitation Status Routine Resus Stat 04/26/19 16:38 Ordered EKG 12 Lead [EK] Routine Ther 04/26/19 13:06 Ordered Medication Orders Acetaminophen (Tylenol Extra Strength) 500 mg PO Q4H PRN PRN Reason: Pain (Mild 1-3)/fever Sodium Chloride (Normal Saline) 1,000 mls @ 999 mls/hr IV ASDIRECTED [facility] [place] Last Admin: 04/26/19 15:01 Dose: 500 mls/hr Infusion: 04/26/19 13:06 Dose: 999 mls/hr Admin: 04/26/19 12:05 Dose: 999 mls/hr Sodium Chloride (Normal Saline) 1,000 mls @ 999 mls/hr IV ASDIRECTED [facility] [place] Last Admin: 04/26/19 13:13 Dose: 999 mls/hr Sodium Chloride (Normal Saline) 1,000 mls @ 150 mls/hr IV ASDIRECTED [facility] [place] Last Admin: 04/27/19 06:18 Dose: 150 mls/hr Infusion: 04/27/19 06:15 Dose: 150 mls/hr Admin: 04/26/19 23:34 Dose: 150 mls/hr Infusion: 04/26/19 23:34 Dose: 150 mls/hr Admin: 04/26/19 17:10 Dose: 150 mls/hr Lorazepam (Ativan) 1 - 3 mg IVPUSH Q4H PRN; Protocol PRN Reason: Withdrawal Symptoms Last Admin: 04/27/19 05:13 Dose: 2 mg Admin: 04/27/19 00:01 Dose: 2 mg Admin: 04/26/19 20:28 Dose: 2 mg Admin: 04/26/19 16:10 Dose: 2 mg Pantoprazole Sodium (Protonix Iv) 40 mg IVPUSH DAILY [facility] [place] Last Admin: 04/26/19 16:29 Dose: 40 mg Sodium Chloride (Saline Flush) 10 ml FLUSH ASDIRECTED PRN PRN Reason: Keep Vein Open Last Admin: 04/27/19 05:16 Dose: 10 ml Admin: 04/26/19 12:09 Dose: 10 ml Admin: 04/26/19 11:58 Dose: 10 ml Thiamine HCl (Vitamin B-1) 100 mg IV DAILY [facility] [place] Last Admin: 04/26/19 16:29 Dose: 100 mg Assessment/Plan Comment:: 1. Admit to ICU with telemetry 2. Ativan for withdrawal 3. IV hydration which I think will correct her creatinine. 4. Lovenox for VTE Prophalxis 5. Resume regular meds 6. Regular diet 7. Check resuscitation status 8. Social service consult
[2019-04-27] MEDS: Thiamine 200 MG/2 ML MDV IV SCH (09:33)
[2019-04-27] MEDS: Enoxaparin 30 MG/0.3 ML Syringe SUBCUT SCH (09:36)
[2019-04-27] MEDS: Potassium Chloride 20 MEQ Tab.ER PO SCH (09:37)
[2019-04-27] MEDS: Pantoprazole 40 MG Vial IVPUSH SCH (09:37)
[2019-04-28] MEDS: Sodium Chloride 0.9% 1,000 ML IV SCH (00:41)
--- NOTE | 2019-04-28 01:03 | PCM.SN ---
- Free Text/Narrative Note: ANESTHESIA SERVICE Date: 04/28/2019 Time: 0030 to 0040 Preprocedure Dx: Poor Peripheral Venous Access Postprocedure Rx: Peripheral Venous Access Obtained Procedure: Peripheral Venous Catheter Placement I was called for peripheral venous access by the physician on-call. Upon arrival to the room, this patient had multiple attempt for access. I found a vein in her distal left wrist area. I prepped the site with an alcohol wipe X 2 and inserted a 24 Ga. 3/4 In. Jelco ProtectIV Plus times 1 attempt. It advanced easily and flushed well. I placed a dressing on. She tolerated this well. Mirza Luz CRNA, A
[2019-04-28] MEDS: LORazepam 2 MG/ML SDV IVPUSH PRN ×5 (01:18→19:49)
[2019-04-28] MEDS: Morphine 2 MG/ML Syringe IVPUSH PRN ×5 (02:31→21:39)
[2019-04-28] MEDS: Potassium Chloride 20 MEQ Tab.ER PO SCH ×2 (08:16→20:00)
[2019-04-28] MEDS: Thiamine 200 MG/2 ML MDV IV SCH (08:16)
[2019-04-28] MEDS: Pantoprazole 40 MG Vial IVPUSH SCH (08:17)
[2019-04-28] MEDS: Enoxaparin 30 MG/0.3 ML Syringe SUBCUT SCH (08:50)
[2019-04-28] MEDS ORDERED: Potassium Chloride 40 MEQ/20 ML SDV IV ONE (09:15)
[2019-04-28] MEDS: Potassium Chloride 20 MEQ in Premix Bag 1 BAG IV SCH ×4 (10:27→18:33)
[2019-04-28] MEDS: Magnesium Oxide 400 MG Tab PO SCH (10:27)
--- NOTE | 2019-04-28 12:54 | PCM.PN ---
- General Info Date of Service: 04/28/19 Subjective Update: Patient initially was answering questions: stated no shortness of breath, chest pain or vomiting. When asked about abdominal pain, she started mumbling and speech rate increased to point that I could not understand the patient. Nurse was present and stated that she has chronic abdominal and back pain. No tremors or seizure activity. Is drinking water and from her trays. Later in the morning she was more agitated and confused, was gagging herself with her fingers until she had an emesis. Her brother was in to visit with social group worker, he declines being her POA and her sister declines as well. She does not have a safe discharge plan at this time. Has been into treatment multiple times even since November. In her present state not competent to make decisions. Social work is filing a vulnerable adult with [facility] today. - Patient Data Vitals - Most Recent: Last Vital Signs Temp 37.2 C 04/28/19 04:00 Pulse 94 04/28/19 08:00 Resp 14 04/28/19 08:00 BP 141/83 H 04/28/19 08:00 Pulse Ox 95 04/28/19 08:00 Weight - Most Recent: 44.996 kg I&O - Last 24 Hours: Intake & Output 04/27/19 04/28/19 04/28/19 22:59 06:59 14:59 Intake Total 844 486 Balance 844 486 Lab Results Last 24 Hours: Laboratory Results - last 24 hr 04/27/19 04/28/19 04/28/19 Range/Units 07:20 06:40 06:40 WBC 6.5 (4.5-12.0) X10-3/uL RBC 3.19 L (3.23-5.20) x10(6)uL Hgb 9.8 L (11.5-15.5) g/dL Hct 29.6 L (30.0-51.3) % MCV 92.8 (80-96) fL MCH 30.8 (27.7-33.6) pg MCHC 33.2 (32.2-35.4) g/dL RDW 14.3 (11.5-15.5) % Plt Count 169 (125-369) X10(3)uL MPV 7.1 L (7.4-10.4) fL Neut % (Auto) 63.2 (46-82) % Lymph % (Auto) 27.6 (13-37) % [place] % (Auto) 7.1 (4-12) % Eos % (Auto) 2 (1.0-5.0) % Baso % (Auto) 0 (0-2) % Neut # (Auto) 4.1 (1.6-8.3) # Lymph # (Auto) 1.8 (0.6-5.0) # [place] # (Auto) 0.5 (0.0-1.3) # Eos # (Auto) 0.1 (0.0-0.8) # Baso # (Auto) 0.0 (0.0-0.2) # PT 10.9 (8.7-11.1) INR 1.12 (0.89-1.13) Sodium (135-145) mmol/L Potassium (3.5-5.3) mmol/L Chloride (100-110) mmol/L Carbon Dioxide (21-32) mmol/L BUN (7-18) mg/dL Creatinine (0.55-1.02) mg/dL Est Cr Clr Drug Dosing mL/min Estimated GFR (MDRD) (>60) BUN/Creatinine Ratio (9-20) Glucose (80-116) mg/dL Calcium (8.6-10.2) mg/dL Magnesium (1.8-2.5) mg/dL Total Bilirubin (0.1-1.3) mg/dL AST (5-25) IU/L ALT (12-36) U/L Alkaline Phosphatase (56-112) IU/L Total Protein (6.0-8.0) g/dL Albumin (3.2-4.6) g/dL Globulin g/dL Albumin/Globulin Ratio Lipase 68 (14-72) U/L 04/28/19 04/28/19 Range/Units 06:40 06:40 WBC (4.5-12.0) X10-3/uL RBC (3.23-5.20) x10(6)uL Hgb (11.5-15.5) g/dL Hct (30.0-51.3) % MCV (80-96) fL MCH (27.7-33.6) pg MCHC (32.2-35.4) g/dL RDW (11.5-15.5) % Plt Count (125-369) X10(3)uL MPV (7.4-10.4) fL Neut % (Auto) (46-82) % Lymph % (Auto) (13-37) % [place] % (Auto) (4-12) % Eos % (Auto) (1.0-5.0) % Baso % (Auto) (0-2) % Neut # (Auto) (1.6-8.3) # Lymph # (Auto) (0.6-5.0) # [place] # (Auto) (0.0-1.3) # Eos # (Auto) (0.0-0.8) # Baso # (Auto) (0.0-0.2) # PT (8.7-11.1) INR (0.89-1.13) Sodium 141 (135-145) mmol/L Potassium 2.4 L* (3.5-5.3) mmol/L Chloride 104 (100-110) mmol/L Carbon Dioxide 29 (21-32) mmol/L BUN 4 L (7-18) mg/dL Creatinine 0.5 L (0.55-1.02) mg/dL Est Cr Clr Drug Dosing 80.74 mL/min Estimated GFR (MDRD) > 60 (>60) BUN/Creatinine Ratio 8.0 L (9-20) Glucose 81 (80-116) mg/dL Calcium 8.0 L (8.6-10.2) mg/dL Magnesium 1.4 L (1.8-2.5) mg/dL Total Bilirubin 0.7 (0.1-1.3) mg/dL AST 42 H D (5-25) IU/L ALT 29 (12-36) U/L Alkaline Phosphatase 88 (56-112) IU/L Total Protein 5.9 L (6.0-8.0) g/dL Albumin 2.8 L (3.2-4.6) g/dL Globulin 3.1 g/dL Albumin/Globulin Ratio 0.9 Lipase (14-72) U/L Med Orders - Current: Current Medications Acetaminophen (Tylenol Extra Strength) 500 mg PO Q4H PRN PRN Reason: Pain (Mild 1-3)/fever Enoxaparin Sodium (Lovenox) 30 mg SUBCUT Q24H [facility] Last Admin: 04/28/19 08:50 Dose: 30 mg Potassium Chloride 20 meq/ (Premix) 100 mls @ 50 mls/hr IV Q2H ROMEL Stop: 04/28/19 17:59 Last Admin: 04/28/19 10:27 Dose: 50 mls/hr Lorazepam (Ativan) 1 - 3 mg IVPUSH Q4H PRN; Protocol PRN Reason: Withdrawal Symptoms Last Admin: 04/28/19 12:37 Dose: 1 mg Magnesium Oxide (Magnesium Oxide) 400 mg PO DAILY [facility] Last Admin: 04/28/19 10:27 Dose: 400 mg Morphine Sulfate (Morphine) 1 mg IVPUSH Q1H PRN PRN Reason: Pain Last Admin: 04/28/19 11:32 Dose: 1 mg Pantoprazole Sodium (Protonix Iv) 40 mg IVPUSH DAILY [facility] Last Admin: 04/28/19 08:17 Dose: 40 mg Potassium Chloride (Klor-Con M20) 20 meq PO DAILY [facility] Last Admin: 04/28/19 08:16 Dose: 20 meq Sodium Chloride (Saline Flush) 10 ml FLUSH ASDIRECTED PRN PRN Reason: Keep Vein Open Last Admin: 04/27/19 05:16 Dose: 10 ml Thiamine HCl (Vitamin B-1) 100 mg IV DAILY [facility] Last Admin: 04/28/19 08:16 Dose: 100 mg Discontinued Medications Sodium Chloride (Normal Saline) 1,000 mls @ 999 mls/hr IV ASDIRECTED [facility] Last Admin: 04/26/19 15:01 Dose: 500 mls/hr Sodium Chloride (Normal Saline) 1,000 mls @ 999 mls/hr IV ASDIRECTED [facility] Last Admin: 04/26/19 13:13 Dose: 999 mls/hr Famotidine 20 mg/ Premix 50 mls @ 200 mls/hr IV ONETIME ONE Stop: 04/26/19 15:40 Last Admin: 04/26/19 16:20 Dose: 200 mls/hr Sodium Chloride (Normal Saline) 1,000 mls @ 70 mls/hr IV ASDIRECTED [facility] Last Admin: 04/28/19 00:41 Dose: 150 mls/hr Lorazepam (Ativan) 2 mg IVPUSH ONETIME ONE Stop: 04/26/19 11:58 Last Admin: 04/26/19 12:08 Dose: 2 mg Potassium Chloride (Potassium Chloride) 50 meq IV ONETIME ONE Stop: 04/28/19 09:16 - Exam General: No Acute Distress, Other (confused, difficult to understand without dentures.) Lungs: Clear to Auscultation, Normal Respiratory Effort Cardiovascular: Regular Rate, Regular Rhythm GI/Abdominal Exam: Normal Bowel Sounds, Soft, Tender (diffuse) Extremities: No Pedal Edema - Problem List & Annotations (1) Alcohol withdrawal SNOMED Code(s): 561570620 Code(s): F10.239 - ALCOHOL DEPENDENCE WITH WITHDRAWAL, UNSPECIFIED Status: Acute Current Visit: Yes (2) Diarrhea SNOMED Code(s): 81745564 Code(s): R19.7 - DIARRHEA, UNSPECIFIED Status: Acute Current Visit: Yes (3) Elevated amylase SNOMED Code(s): 104854448 Code(s): R74.8 - ABNORMAL LEVELS OF OTHER SERUM ENZYMES Status: Acute Current Visit: Yes (4) Vomiting SNOMED Code(s): 344455218 Code(s): R11.10 - VOMITING, UNSPECIFIED Status: Acute Current Visit: Yes (5) Chronic pain syndrome SNOMED Code(s): 996609519 Code(s): G89.4 - CHRONIC PAIN SYNDROME Status: Acute Current Visit: No (6) Dehydration SNOMED Code(s): 19660083 Code(s): E86.0 - DEHYDRATION Status: Acute Current Visit: No (7) H/O ETOH abuse SNOMED Code(s): 951775565 Code(s): Z87.898 - PERSONAL HISTORY OF OTHER SPECIFIED CONDITIONS Status: Acute Current Visit: No (8) Hypokalemia SNOMED Code(s): 71162132 Code(s): E87.6 - HYPOKALEMIA Status: Acute Current Visit: No Annotation /Comment:: (9) Hypomagnesemia SNOMED Code(s): 656718685 Code(s): E83.42 - HYPOMAGNESEMIA Status: Acute Current Visit: Yes - Problem List Review Problem List Initiated/Reviewed/Updated: Yes - My Orders Last 24 Hours: My Active Orders 04/28/19 10:00 Potassium Chloride [KCL 20 MEQ in Water 100 ML] 20 meq Premix Bag 1 bag IV Q2H 04/28/19 10:30 Magnesium Oxide 400 mg PO DAILY 04/29/19 06:00 BASIC METABOLIC PANEL,BMP [CHEM] Routine - Plan Plan:: 1. Admit to ICU with telemetry 2. Ativan for withdrawal per [facility] protocol 3. Creatinine corrected. IV fluids with Potassium IV to help reduce pain with infusion. 4. Magnesium low at 1.4, replace 400 mg daily, repeat labs tomorrow. 5. Lovenox for VTE Prophalxis 6. Resume regular meds 7. Regular diet 8. Social service consult
[2019-04-28] MEDS ORDERED: Sodium Chloride 0.9% 1,000 ML IV SCH (16:10)
[2019-04-28] MEDS: Sodium Chloride 0.9% 10 ML Syringe FLUSH PRN ×3 (17:37→21:40)
[2019-04-29] MEDS: Morphine 2 MG/ML Syringe IVPUSH PRN ×2 (01:25→10:40)
[2019-04-29] MEDS: Sodium Chloride 0.9% 10 ML Syringe FLUSH PRN ×3 (01:26→12:58)
[2019-04-29] MEDS: Thiamine 200 MG/2 ML MDV IV SCH (08:21)
[2019-04-29] MEDS: Magnesium Oxide 400 MG Tab PO SCH (08:22)
[2019-04-29] MEDS: Pantoprazole 40 MG Vial IVPUSH SCH (08:23)
[2019-04-29] MEDS: Potassium Chloride 20 MEQ Tab.ER PO SCH ×3 (08:23→20:04)
--- NOTE | 2019-04-29 09:16 | PCM.PN ---
- General Info Date of Service: 04/29/19 Subjective Update: Patient is up in the chair, showered and feeling better today. No shortness of breath, no tremors. No dentures in place so difficult to make out some of her words. She has been having brown smears when she uses bathroom but no formed stool as yet. Did well overnight per nursing staff, followed A protocol. - Patient Data Vitals - Most Recent: Last Vital Signs Temp 36.6 C 04/29/19 04:00 Pulse 78 04/29/19 04:00 Resp 18 04/29/19 04:00 BP 162/81 H 04/29/19 04:00 Pulse Ox 93 L 04/29/19 04:00 Weight - Most Recent: 44.996 kg Lab Results Last 24 Hours: Laboratory Results - last 24 hr 04/28/19 04/29/19 Range/Units 06:40 06:30 Sodium 141 (135-145) mmol/L Potassium 3.5 D (3.5-5.3) mmol/L Chloride 104 (100-110) mmol/L Carbon Dioxide 28 (21-32) mmol/L BUN 2 L (7-18) mg/dL Creatinine 0.5 L (0.55-1.02) mg/dL Est Cr Clr Drug Dosing 80.74 mL/min Estimated GFR (MDRD) > 60 (>60) BUN/Creatinine Ratio 4.0 L (9-20) Glucose 87 (80-116) mg/dL Calcium 8.7 (8.6-10.2) mg/dL Magnesium 1.4 L 1.6 L (1.8-2.5) mg/dL Med Orders - Current: Current Medications Acetaminophen (Tylenol Extra Strength) 500 mg PO Q4H PRN PRN Reason: Pain (Mild 1-3)/fever Enoxaparin Sodium (Lovenox) 30 mg SUBCUT Q24H [facility] Last Admin: 04/28/19 08:50 Dose: 30 mg Sodium Chloride (Normal Saline) 1,000 mls @ 70 mls/hr IV ASDIRECTED [facility] Lorazepam (Ativan) 1 - 3 mg IVPUSH Q2H PRN; Protocol PRN Reason: Withdrawal Symptoms Last Admin: 04/28/19 19:49 Dose: 2 mg Magnesium Oxide (Magnesium Oxide) 400 mg PO DAILY [facility] Last Admin: 04/29/19 08:22 Dose: 400 mg Morphine Sulfate (Morphine) 1 mg IVPUSH Q1H PRN PRN Reason: Pain Last Admin: 04/29/19 01:25 Dose: 1 mg Pantoprazole Sodium (Protonix Iv) 40 mg IVPUSH DAILY [facility] Last Admin: 04/29/19 08:23 Dose: 40 mg Potassium Chloride (Klor-Con M20) 20 meq PO TID [facility] Last Admin: 04/29/19 08:23 Dose: 20 meq Sodium Chloride (Saline Flush) 10 ml FLUSH ASDIRECTED PRN PRN Reason: Keep Vein Open Last Admin: 04/29/19 01:26 Dose: 10 ml Thiamine HCl (Vitamin B-1) 100 mg IV DAILY [facility] Last Admin: 04/29/19 08:21 Dose: 100 mg Discontinued Medications Sodium Chloride (Normal Saline) 1,000 mls @ 999 mls/hr IV ASDIRECTED [facility] Last Admin: 04/26/19 15:01 Dose: 500 mls/hr Sodium Chloride (Normal Saline) 1,000 mls @ 999 mls/hr IV ASDIRECTED [facility] Last Admin: 04/26/19 13:13 Dose: 999 mls/hr Famotidine 20 mg/ Premix 50 mls @ 200 mls/hr IV ONETIME ONE Stop: 04/26/19 15:40 Last Admin: 04/26/19 16:20 Dose: 200 mls/hr Sodium Chloride (Normal Saline) 1,000 mls @ 70 mls/hr IV ASDIRECTED [facility] Last Admin: 04/28/19 00:41 Dose: 150 mls/hr Potassium Chloride 20 meq/ (Premix) 100 mls @ 50 mls/hr IV Q2H [facility] Stop: 04/28/19 17:59 Last Admin: 04/28/19 18:33 Dose: Not Given Lorazepam (Ativan) 2 mg IVPUSH ONETIME ONE Stop: 04/26/19 11:58 Last Admin: 04/26/19 12:08 Dose: 2 mg Lorazepam (Ativan) 1 - 3 mg IVPUSH Q4H PRN; Protocol PRN Reason: Withdrawal Symptoms Last Admin: 04/28/19 12:37 Dose: 1 mg Potassium Chloride (Klor-Con M20) 20 meq PO DAILY [facility] Last Admin: 04/28/19 08:16 Dose: 20 meq Potassium Chloride (Potassium Chloride) 50 meq IV ONETIME ONE Stop: 04/28/19 09:16 - Exam General: Alert, Oriented, Cooperative, Other (difficult to understand without dentures) Lungs: Clear to Auscultation, Normal Respiratory Effort Cardiovascular: Regular Rate, Regular Rhythm GI/Abdominal Exam: Normal Bowel Sounds, Soft, Non-Tender, No Distention Extremities: No Pedal Edema Skin: Warm, Dry, Intact Neurological: No New Focal Deficit Psy/Mental Status: Labile Mood (good mood at time of exam). No: Hallucinations , Withdrawal Symptoms (no tremors) - Problem List & Annotations (1) Alcohol withdrawal SNOMED Code(s): 876999967 Code(s): F10.239 - ALCOHOL DEPENDENCE WITH WITHDRAWAL, UNSPECIFIED Status: Acute Current Visit: Yes (2) Diarrhea SNOMED Code(s): 57474329 Code(s): R19.7 - DIARRHEA, UNSPECIFIED Status: Resolved Current Visit: Yes (3) Elevated amylase SNOMED Code(s): 960012496 Code(s): R74.8 - ABNORMAL LEVELS OF OTHER SERUM ENZYMES Status: Acute Current Visit: Yes (4) Vomiting SNOMED Code(s): 359886352 Code(s): R11.10 - VOMITING, UNSPECIFIED Status: Resolved Current Visit: Yes (5) Chronic pain syndrome SNOMED Code(s): 315156150 Code(s): G89.4 - CHRONIC PAIN SYNDROME Status: Acute Current Visit: No (6) Dehydration SNOMED Code(s): 24253383 Code(s): E86.0 - DEHYDRATION Status: Resolved Current Visit: No (7) H/O ETOH abuse SNOMED Code(s): 637577199 Code(s): Z87.898 - PERSONAL HISTORY OF OTHER SPECIFIED CONDITIONS Status: Acute Current Visit: No (8) Hypokalemia SNOMED Code(s): 28763790 Code(s): E87.6 - HYPOKALEMIA Status: Resolved Current Visit: No Annotation/Comment:: (9) Hypomagnesemia SNOMED Code(s): 196281160 Code(s): E83.42 - HYPOMAGNESEMIA Status: Acute Current Visit: Yes Annotation/Comment:: improving - Problem List Review Problem List Initiated/Reviewed/Updated: Yes - My Orders Last 24 Hours: My Active Orders 04/28/19 10:30 Magnesium Oxide 400 mg PO DAILY 04/28/19 16:10 Sodium Chloride 0.9% [Normal Saline] 1,000 ml IV ASDIRECTED 04/28/19 21:00 Potassium Chloride [Klor-Con M20] 20 meq PO TID - Plan Plan:: 1. Ativan for withdrawal per [facility]WA protocol 3. Potassium corrected at 3.5 today. 4. Magnesium low at 1.6, replace 400 mg daily, repeat labs tomorrow. 5. Lovenox for VTE Prophalxis 6. Resume regular meds 7. Regular diet 8. Social service consult: as to placement. No safe discharge to date.
[2019-04-29] MEDS: Enoxaparin 30 MG/0.3 ML Syringe SUBCUT SCH (09:26)
[2019-04-29] MEDS: LORazepam 2 MG/ML SDV IVPUSH PRN (12:57)
[2019-04-29] MEDS: LORazepam 1 MG Tab PO PRN (20:04)
--- NOTE | 2019-04-30 08:44 | PCM.PN ---
- General Info Date of Service: 04/30/19 Subjective Update: Did well with switching to PO Ativan last night, rested for longer periods than IV. Also more understandable this morning. Talking about how her chronic pancreatitis pain really depresses her. Wanted also to have help with cutting up her toast on her breakfast tray. No chest pain or diarrhea. no vomiting. - Patient Data Vitals - Most Recent: Last Vital Signs Temp 37.1 C 04/30/19 03:48 Pulse 92 04/30/19 03:48 Resp 18 04/30/19 03:48 BP 122/75 04/30/19 03:48 Pulse Ox 95 04/30/19 03:48 Weight - Most Recent: 44.996 kg Lab Results Last 24 Hours: Laboratory Results - last 24 hr 04/30/19 Range/Units 06:11 Sodium 142 (135-145) mmol/L Potassium 3.9 (3.5-5.3) mmol/L Chloride 107 (100-110) mmol/L Carbon Dioxide 29 (21-32) mmol/L BUN 4 L (7-18) mg/dL Creatinine 0.5 L (0.55-1.02) mg/dL Est Cr Clr Drug Dosing 80.74 mL/min Estimated GFR (MDRD) > 60 (>60) BUN/Creatinine Ratio 8.0 L (9-20) Glucose 96 (80-116) mg/dL Calcium 9.1 (8.6-10.2) mg/dL Magnesium 1.8 (1.8-2.5) mg/dL Total Bilirubin 0.3 (0.1-1.3) mg/dL AST 49 H D (5-25) IU/L ALT 35 D (12-36) U/L Alkaline Phosphatase 103 (56-112) IU/L Total Protein 6.4 (6.0-8.0) g/dL Albumin 3.0 L (3.2-4.6) g/dL Globulin 3.4 g/dL Albumin/Globulin Ratio 0.9 Amylase 59 (25-115) U/L Med Orders - Current: Current Medications Acetaminophen (Tylenol Extra Strength) 500 mg PO Q4H PRN PRN Reason: Pain (Mild 1-3)/fever Enoxaparin Sodium (Lovenox) 30 mg SUBCUT Q24H [facility] Last Admin: 04/29/19 09:26 Dose: 30 mg Sodium Chloride (Normal Saline) 1,000 mls @ 70 mls/hr IV ASDIRECTED [facility] Lorazepam (Ativan) 1 - 3 mg IVPUSH Q2H PRN; Protocol PRN Reason: Withdrawal Symptoms Last Admin: 04/29/19 12:57 Dose: 1 mg Lorazepam (Ativan) 2 mg PO Q2H PRN; Protocol PRN Reason: Withdrawal Symptoms Last Admin: 04/29/19 20:04 Dose: 2 mg Magnesium Oxide (Magnesium Oxide) 400 mg PO DAILY [facility] Last Admin: 04/29/19 08:22 Dose: 400 mg Morphine Sulfate (Morphine) 1 mg IVPUSH Q1H PRN PRN Reason: Pain Last Admin: 04/29/19 10:40 Dose: 1 mg Pantoprazole Sodium (Protonix Iv) 40 mg IVPUSH DAILY [facility] Last Admin: 04/29/19 08:23 Dose: 40 mg Potassium Chloride (Klor-Con M20) 20 meq PO BID [facility] Sodium Chloride (Saline Flush) 10 ml FLUSH ASDIRECTED PRN PRN Reason: Keep Vein Open Last Admin: 04/29/19 12:58 Dose: 10 ml Thiamine HCl (Vitamin B-1) 100 mg IV DAILY [facility] Last Admin: 04/29/19 08:21 Dose: 100 mg Discontinued Medications Sodium Chloride (Normal Saline) 1,000 mls @ 999 mls/hr IV ASDIRECTED [facility] Last Admin: 04/26/19 15:01 Dose: 500 mls/hr Sodium Chloride (Normal Saline) 1,000 mls @ 999 mls/hr IV ASDIRECTED [facility] Last Admin: 04/26/19 13:13 Dose: 999 mls/hr Famotidine 20 mg/ Premix 50 mls @ 200 mls/hr IV ONETIME ONE Stop: 04/26/19 15:40 Last Admin: 04/26/19 16:20 Dose: 200 mls/hr Sodium Chloride (Normal Saline) 1,000 mls @ 70 mls/hr IV ASDIRECTED [facility] Last Admin: 04/28/19 00:41 Dose: 150 mls/hr Potassium Chloride 20 meq/ (Premix) 100 mls @ 50 mls/hr IV Q2H [facility] Stop: 04/28/19 17:59 Last Admin: 04/28/19 18:33 Dose: Not Given Lorazepam (Ativan) 2 mg IVPUSH ONETIME ONE Stop: 04/26/19 11:58 Last Admin: 04/26/19 12:08 Dose: 2 mg Lorazepam (Ativan) 1 - 3 mg IVPUSH Q4H PRN; Protocol PRN Reason: Withdrawal Symptoms Last Admin: 04/28/19 12:37 Dose: 1 mg Potassium Chloride (Klor-Con M20) 20 meq PO DAILY [facility] Last Admin: 04/28/19 08:16 Dose: 20 meq Potassium Chloride (Potassium Chloride) 50 meq IV ONETIME ONE Stop: 04/28/19 09:16 Potassium Chloride (Klor-Con M20) 20 meq PO TID [facility] Last Admin: 04/29/19 20:04 Dose: 20 meq - Exam General: Alert, Oriented (person, place), Cooperative, No Acute Distress Lungs: Clear to Auscultation, Normal Respiratory Effort Cardiovascular: Regular Rate, Regular Rhythm GI/Abdominal Exam: Normal Bowel Sounds, Soft, No Distention, Tender (diffuse) Neurological: No New Focal Deficit (no tremors) - Problem List & Annotations (1) Alcohol withdrawal SNOMED Code(s): 232729632 Code(s): F10.239 - ALCOHOL DEPENDENCE WITH WITHDRAWAL, UNSPECIFIED Status: Acute Current Visit: Yes (2) Diarrhea SNOMED Code(s): 33650313 Code(s): R19.7 - DIARRHEA, UNSPECIFIED Status: Resolved Current Visit: Yes (3) Chronic pain syndrome SNOMED Code(s): 388175207 Code(s): G89.4 - CHRONIC PAIN SYNDROME Status: Chronic Current Visit: No (4) H/O ETOH abuse SNOMED Code(s): 516714465 Code(s): Z87.898 - PERSONAL HISTORY OF OTHER SPECIFIED CONDITIONS Status: Acute Current Visit: No (5) Hypokalemia SNOMED Code(s): 62819852 Code(s): E87.6 - HYPOKALEMIA Status: Resolved Current Visit: No Annotation/Comment:: (6) Hypomagnesemia SNOMED Code(s): 602233913 Code(s): E83.42 - HYPOMAGNESEMIA Status: Resolved Current Visit: Yes Annotation/Comment:: improving (7) Dehydration SNOMED Code(s): 55715895 Code(s): E86.0 - DEHYDRATION Status: Resolved Current Visit: No (8) Vomiting SNOMED Code(s): 665363117 Code(s): R11.10 - VOMITING, UNSPECIFIED Status: Resolved Current Visit: Yes (9) Elevated amylase SNOMED Code(s): 865109142 Code(s): R74.8 - ABNORMAL LEVELS OF OTHER SERUM ENZYMES Status: Resolved Current Visit: Yes - Problem List Review Problem List Initiated/Reviewed/Updated: Yes - My Orders Last 24 Hours: My Active Orders 04/29/19 16:02 LORazepam [Ativan] 2 mg PO Q2H PRN 04/30/19 09:00 Potassium Chloride [Klor-Con M20] 20 meq PO BID - Plan Plan:: 1. Ativan oral for withdrawal per [facility]WA protocol. 3. Potassium 3.9 today. Amylase normal today. 4. Magnesium corrected to 1.8 today. 5. Lovenox for VTE Prophalxis 6. Resume regular meds 7. Regular diet 8. Social service consult: as to placement. No safe discharge to date.
[2019-04-30] MEDS: Potassium Chloride 20 MEQ Tab.ER PO SCH ×2 (09:07→20:09)
[2019-04-30] MEDS: Thiamine 200 MG/2 ML MDV IV SCH (09:07)
[2019-04-30] MEDS: Magnesium Oxide 400 MG Tab PO SCH (09:07)
[2019-04-30] MEDS: Enoxaparin 30 MG/0.3 ML Syringe SUBCUT SCH (09:08)
[2019-04-30] MEDS: Pantoprazole 40 MG Vial IVPUSH SCH (09:08)
[2019-04-30] MEDS: Sodium Chloride 0.9% 10 ML Syringe FLUSH PRN (09:18)
[2019-04-30] MEDS: LORazepam 1 MG Tab PO PRN ×4 (09:40→23:55)
[2019-05-01] MEDS: Morphine 2 MG/ML Syringe IVPUSH PRN (03:07)
[2019-05-01] MEDS: Sodium Chloride 0.9% 10 ML Syringe FLUSH PRN (03:08)
[2019-05-01] MEDS: Potassium Chloride 20 MEQ Tab.ER PO SCH ×2 (09:36→21:15)
[2019-05-01] MEDS: Pantoprazole 40 MG Tab.CR PO SCH (09:36)
[2019-05-01] MEDS: Magnesium Oxide 400 MG Tab PO SCH (09:37)
[2019-05-01] MEDS: Enoxaparin 30 MG/0.3 ML Syringe SUBCUT SCH (09:37)
[2019-05-01] MEDS: traMADol 50 MG Tab PO PRN ×2 (09:37→18:53)
[2019-05-01] MEDS: Thiamine 200 MG/2 ML MDV IV SCH (09:54)
[2019-05-01] MEDS: Thiamine 100 MG Tab PO SCH (10:19)
--- NOTE | 2019-05-01 12:55 | PCM.PN ---
- General Info Date of Service: 05/01/19 Subjective Update: Patient's IV infiltrated, she has been eating fairly well since Wednesday so discontinued IVs medications and switched to oral forms. She is sometimes understandable when conversing this morning. She has been incontinent this morning of urine. Her family does not wish to be medical power of medical staff services coordinator though her brother is power of medical staff services coordinator over her trust from her father. It is hard to keep her on one topic in addition to understanding her speech to do mental status exam(SLUMS exam). At her present level of cognition she is not capable of making higher executive decisions but will get OT to do a cognitive screen. Will need guardian appointed by the state. She does not have a safe environment to be discharged to at this time. No complaints this morning. - Patient Data Vitals - Most Recent: Last Vital Signs Temp 36.7 C 05/01/19 08:00 Pulse 112 H 05/01/19 08:00 Resp 20 05/01/19 08:00 BP 136/79 05/01/19 08:00 Pulse Ox 98 05/01/19 08:00 Weight - Most Recent: 44.996 kg Med Orders - Current: Current Medications Acetaminophen (Tylenol Extra Strength) 500 mg PO Q4H PRN PRN Reason: Pain (Mild 1-3)/fever Enoxaparin Sodium (Lovenox) 30 mg SUBCUT Q24H [facility] Last Admin: 05/01/19 09:37 Dose: 30 mg Sodium Chloride (Normal Saline) 1,000 mls @ 70 mls/hr IV ASDIRECTED [facility] Lorazepam (Ativan) 1 - 3 mg IVPUSH Q2H PRN; Protocol PRN Reason: Withdrawal Symptoms Last Admin: 04/29/19 12:57 Dose: 1 mg Lorazepam (Ativan) 2 mg PO Q2H PRN; Protocol PRN Reason: Withdrawal Symptoms Last Admin: 04/30/19 23:55 Dose: 2 mg Magnesium Oxide (Magnesium Oxide) 400 mg PO DAILY [facility] Last Admin: 05/01/19 09:37 Dose: 400 mg Pantoprazole Sodium (Protonix) 40 mg PO 0600 [facility] Last Admin: 05/01/19 09:36 Dose: 40 mg Potassium Chloride (Klor-Con M20) 20 meq PO BID [facility] Last Admin: 05/01/19 09:36 Dose: 20 meq Sodium Chloride (Saline Flush) 10 ml FLUSH ASDIRECTED PRN PRN Reason: Keep Vein Open Last Admin: 05/01/19 03:08 Dose: 10 ml Thiamine HCl (Vitamin B-1) 100 mg PO DAILY [facility] Last Admin: 05/01/19 10:19 Dose: 100 mg Tramadol HCl (Ultram) 100 mg PO Q8H PRN PRN Reason: Pain Last Admin: 05/01/19 09:37 Dose: 100 mg Discontinued Medications Sodium Chloride (Normal Saline) 1,000 mls @ 999 mls/hr IV ASDIRECTED [facility] Last Admin: 04/26/19 15:01 Dose: 500 mls/hr Sodium Chloride (Normal Saline) 1,000 mls @ 999 mls/hr IV ASDIRECTED [facility] Last Admin: 04/26/19 13:13 Dose: 999 mls/hr Famotidine 20 mg/ Premix 50 mls @ 200 mls/hr IV ONETIME ONE Stop: 04/26/19 15:40 Last Admin: 04/26/19 16:20 Dose: 200 mls/hr Sodium Chloride (Normal Saline) 1,000 mls @ 70 mls/hr IV ASDIRECTED [facility] Last Admin: 04/28/19 00:41 Dose: 150 mls/hr Potassium Chloride 20 meq/ (Premix) 100 mls @ 50 mls/hr IV Q2H [facility] Stop: 04/28/19 17:59 Last Admin: 04/28/19 18:33 Dose: Not Given Lorazepam (Ativan) 2 mg IVPUSH ONETIME ONE Stop: 04/26/19 11:58 Last Admin: 04/26/19 12:08 Dose: 2 mg Lorazepam (Ativan) 1 - 3 mg IVPUSH Q4H PRN; Protocol PRN Reason: Withdrawal Symptoms Last Admin: 04/28/19 12:37 Dose: 1 mg Morphine Sulfate (Morphine) 1 mg IVPUSH Q1H PRN PRN Reason: Pain Last Admin: 05/01/19 03:07 Dose: 1 mg Pantoprazole Sodium (Protonix Iv) 40 mg IVPUSH DAILY [facility] Last Admin: 04/30/19 09:08 Dose: 40 mg Potassium Chloride (Klor-Con M20) 20 meq PO DAILY [facility] Last Admin: 04/28/19 08:16 Dose: 20 meq Potassium Chloride (Potassium Chloride) 50 meq IV ONETIME ONE Stop: 04/28/19 09:16 Potassium Chloride (Klor-Con M20) 20 meq PO TID [facility] Last Admin: 04/29/19 20:04 Dose: 20 meq Thiamine HCl (Vitamin B-1) 100 mg IV DAILY [facility] Last Admin: 05/01/19 09:54 Dose: Not Given - Exam General: Alert, Cooperative, No Acute Distress Lungs: Clear to Auscultation, Normal Respiratory Effort Cardiovascular: Regular Rate, Regular Rhythm GI/Abdominal Exam: Normal Bowel Sounds, Soft, Non-Tender Extremities: No Pedal Edema Psy/Mental Status: Alert, Other (mumbles some of her words to where they are not able to comphrend them, easily redirected). No: Hallucinations, Withdrawal Symptoms - Problem List & Annotations (1) Alcohol withdrawal SNOMED Code(s): 117736025 Code(s): F10.239 - ALCOHOL DEPENDENCE WITH WITHDRAWAL, UNSPECIFIED Status: Acute Current Visit: Yes (2) Cognitive impairment SNOMED Code(s): 662374197 Code(s): R41.89 - OTH SYMPTOMS AND SIGNS W COGNITIVE FUNCTIONS AND AWARENESS Status: Acute Current Visit: Yes Annotation/Comment:: due to alcoholism (3) Chronic pain syndrome SNOMED Code(s): 962972229 Code(s): G89.4 - CHRONIC PAIN SYNDROME Status: Chronic Current Visit: No (4) H/O ETOH abuse SNOMED Code(s): 184490629 Code(s): Z87.898 - PERSONAL HISTORY OF OTHER SPECIFIED CONDITIONS Status: Acute Current Visit: No (5) Hypokalemia SNOMED Code(s): 68945851 Code(s): E87.6 - HYPOKALEMIA Status: Resolved Current Visit: No Annotation/Comment:: (6) Hypomagnesemia SNOMED Code(s): 727150559 Code(s): E83.42 - HYPOMAGNESEMIA Status: Resolved Current Visit: Yes Annotation/Comment:: improving (7) Dehydration SNOMED Code(s): 86854131 Code(s): E86.0 - DEHYDRATION Status: Resolved Current Visit: No (8) Vomiting SNOMED Code(s): 058329301 Code(s): R11.10 - VOMITING, UNSPECIFIED Status: Resolved Current Visit: Yes (9) Elevated amylase SNOMED Code(s): 476103095 Code(s): R74.8 - ABNORMAL LEVELS OF OTHER SERUM ENZYMES Status: Resolved Current Visit: Yes (10) Diarrhea SNOMED Code(s): 50159790 Code(s): R19.7 - DIARRHEA, UNSPECIFIED Status: Resolved Current Visit: Yes - Problem List Review Problem List Initiated/Reviewed/Updated: Yes - My Orders Last 24 Hours: My Active Orders 05/01/19 07:30 traMADol [Ultram] 100 mg PO Q8H PRN 05/01/19 08:00 Pantoprazole [ProTONIX] 40 mg PO 0600 05/01/19 10:00 Thiamine [Vitamin B-1] 100 mg PO DAILY 05/01/19 10:50 OT Evaluation and Treatment [CONS] Routine 05/01/19 10:51 Consult for Substance Abuse [CONS] Routine - Plan Plan:: 1. Social service: No safe discharge to date. Filed vulnerable adult and request for state-appointed guardian on Wednesday. 2. Chemical dependence consult. 3. OT consult for cognitive screen. 4. Lovenox for VTE Prophalxis 5. Regular diet
[2019-05-01] MEDS: Acetaminophen 500 MG Tab PO PRN (22:04)
[2019-05-02] MEDS: traMADol 50 MG Tab PO PRN ×2 (03:11→13:17)
[2019-05-02] MEDS: Pantoprazole 40 MG Tab.CR PO SCH (05:10)
[2019-05-02] MEDS: Potassium Chloride 20 MEQ Tab.ER PO SCH ×2 (09:34→20:24)
[2019-05-02] MEDS: Thiamine 100 MG Tab PO SCH (09:35)
[2019-05-02] MEDS: Enoxaparin 30 MG/0.3 ML Syringe SUBCUT SCH (09:35)
[2019-05-02] MEDS: Magnesium Oxide 400 MG Tab PO SCH (09:35)
[2019-05-02] MEDS: Acetaminophen 500 MG Tab PO PRN ×2 (09:39→17:22)
--- NOTE | 2019-05-02 10:15 | PCM.PN ---
- General Info Date of Service: 05/02/19 Subjective Update: Patient did well overnight, got up a few times, had pain medication around 3am then slept. She is up in the chair this am, eating breakfast. States that Ensure she had really helped with her stomach and it tasted good. Had a bowel movement, no diarrhea or vomiting. Had cognitive screen yesterday with OT and found to have moderate cognitive impairment with score of 19/30. Substance abuse consult was placed and seen this morning. - Patient Data Vitals - Most Recent: Last Vital Signs Temp 36.7 C 05/02/19 08:00 Pulse 99 05/02/19 08:00 Resp 18 05/02/19 08:00 BP 130/82 05/02/19 08:00 Pulse Ox 96 05/02/19 08:00 Weight - Most Recent: 44.996 kg Med Orders - Current: Current Medications Acetaminophen (Tylenol Extra Strength) 500 mg PO Q4H PRN PRN Reason: Pain (Mild 1-3)/fever Last Admin: 05/02/19 09:39 Dose: 500 mg Enoxaparin Sodium (Lovenox) 30 mg SUBCUT Q24H [facility] Last Admin: 05/02/19 09:35 Dose: 30 mg Sodium Chloride (Normal Saline) 1,000 mls @ 70 mls/hr IV ASDIRECTED [facility] Lorazepam (Ativan) 1 - 3 mg IVPUSH Q2H PRN; Protocol PRN Reason: Withdrawal Symptoms Last Admin: 04/29/19 12:57 Dose: 1 mg Lorazepam (Ativan) 2 mg PO Q2H PRN; Protocol PRN Reason: Withdrawal Symptoms Last Admin: 04/30/19 23:55 Dose: 2 mg Magnesium Oxide (Magnesium Oxide) 400 mg PO DAILY [facility] Last Admin: 05/02/19 09:35 Dose: 400 mg Pantoprazole Sodium (Protonix) 40 mg PO 0600 [facility] Last Admin: 05/02/19 05:10 Dose: 40 mg Potassium Chloride (Klor-Con M20) 20 meq PO BID [facility] Last Admin: 05/02/19 09:34 Dose: 20 meq Sodium Chloride (Saline Flush) 10 ml FLUSH ASDIRECTED PRN PRN Reason: Keep Vein Open Last Admin: 05/01/19 03:08 Dose: 10 ml Thiamine HCl (Vitamin B-1) 100 mg PO DAILY [facility] Last Admin: 05/02/19 09:35 Dose: 100 mg Tramadol HCl (Ultram) 100 mg PO Q8H PRN PRN Reason: Pain Last Admin: 05/02/19 03:11 Dose: 100 mg Discontinued Medications Sodium Chloride (Normal Saline) 1,000 mls @ 999 mls/hr IV ASDIRECTED [facility] Last Admin: 04/26/19 15:01 Dose: 500 mls/hr Sodium Chloride (Normal Saline) 1,000 mls @ 999 mls/hr IV ASDIRECTED [facility] Last Admin: 04/26/19 13:13 Dose: 999 mls/hr Famotidine 20 mg/ Premix 50 mls @ 200 mls/hr IV ONETIME ONE Stop: 04/26/19 15:40 Last Admin: 04/26/19 16:20 Dose: 200 mls/hr Sodium Chloride (Normal Saline) 1,000 mls @ 70 mls/hr IV ASDIRECTED [facility] Last Admin: 04/28/19 00:41 Dose: 150 mls/hr Potassium Chloride 20 meq/ (Premix) 100 mls @ 50 mls/hr IV Q2H [facility] Stop: 04/28/19 17:59 Last Admin: 04/28/19 18:33 Dose: Not Given Lorazepam (Ativan) 2 mg IVPUSH ONETIME ONE Stop: 04/26/19 11:58 Last Admin: 04/26/19 12:08 Dose: 2 mg Lorazepam (Ativan) 1 - 3 mg IVPUSH Q4H PRN; Protocol PRN Reason: Withdrawal Symptoms Last Admin: 04/28/19 12:37 Dose: 1 mg Morphine Sulfate (Morphine) 1 mg IVPUSH Q1H PRN PRN Reason: Pain Last Admin: 05/01/19 03:07 Dose: 1 mg Pantoprazole Sodium (Protonix Iv) 40 mg IVPUSH DAILY [facility] Last Admin: 04/30/19 09:08 Dose: 40 mg Potassium Chloride (Klor-Con M20) 20 meq PO DAILY [facility] Last Admin: 04/28/19 08:16 Dose: 20 meq Potassium Chloride (Potassium Chloride) 50 meq IV ONETIME ONE Stop: 04/28/19 09:16 Potassium Chloride (Klor-Con M20) 20 meq PO TID [facility] Last Admin: 04/29/19 20:04 Dose: 20 meq Thiamine HCl (Vitamin B-1) 100 mg IV DAILY [facility] Last Admin: 05/01/19 09:54 Dose: Not Given - Exam General: Alert, Cooperative, No Acute Distress, Other (pleasantly confused) Lungs: Clear to Auscultation, Normal Respiratory Effort Cardiovascular: Regular Rate, Regular Rhythm GI/Abdominal Exam: Normal Bowel Sounds, Soft, Non-Tender, No Distention Extremities: No Pedal Edema - Problem List & Annotations (1) Alcohol withdrawal SNOMED Code(s): 033269686 Code(s): F10.239 - ALCOHOL DEPENDENCE WITH WITHDRAWAL, UNSPECIFIED Status: Acute Current Visit: Yes (2) Cognitive impairment SNOMED Code(s): 001115924 Code(s): R41.89 - OTH SYMPTOMS AND SIGNS W COGNITIVE FUNCTIONS AND AWARENESS Status: Acute Current Visit: Yes Annotation/Comment:: secondary to long standing alcoholism, moderate(score 19/30). (3) Chronic pain syndrome SNOMED Code(s): 205770687 Code(s): G89.4 - CHRONIC PAIN SYNDROME Status: Chronic Current Visit: No (4) H/O ETOH abuse SNOMED Code(s): 348101283 Code(s): Z87.898 - PERSONAL HISTORY OF OTHER SPECIFIED CONDITIONS Status: Acute Current Visit: No (5) Hypokalemia SNOMED Code(s): 51006950 Code(s): E87.6 - HYPOKALEMIA Status: Resolved Current Visit: No Annotation/Comment:: (6) Hypomagnesemia SNOMED Code(s): 054797616 Code(s): E83.42 - HYPOMAGNESEMIA Status: Resolved Current Visit: Yes Annotation/Comment:: improving (7) Dehydration SNOMED Code(s): 04420329 Code(s): E86.0 - DEHYDRATION Status: Resolved Current Visit: No (8) Vomiting SNOMED Code(s): 337772485 Code(s): R11.10 - VOMITING, UNSPECIFIED Status: Resolved Current Visit: Yes (9) Elevated amylase SNOMED Code(s): 866436518 Code(s): R74.8 - ABNORMAL LEVELS OF OTHER SERUM ENZYMES Status: Resolved Current Visit: Yes (10) Diarrhea SNOMED Code(s): 96137220 Code(s): R19.7 - DIARRHEA, UNSPECIFIED Status: Resolved Current Visit: Yes - Problem List Review Problem List Initiated/Reviewed/Updated: Yes - My Orders Last 24 Hours: My Active Orders 05/01/19 10:00 Thiamine [Vitamin B-1] 100 mg PO DAILY 05/01/19 10:50 OT Evaluation and Treatment [CONS] Routine 05/01/19 10:51 Consult for Substance Abuse [CONS] Routine - Plan Plan:: 1. Social service: No safe discharge to date. Request for state-appointed guardian. Social work with discuss with her brother who is power of title attorney for her finances about assisted living either at [facility] or [facility] for safe housing alternate. 2. Chemical dependence consult: recommended safe housing, Complete neuropsychological testing and Complete a Comprehensive Assessment for Substance Use Disorder to determine the appropriate level of treatment. 3. OT cognitive screen showed moderate neurocognitive impairment with score 19/ 30, need guardian assigned to get recommended testing(see above #2) done as she would be no competent to sign for consent of treatment. 4. Lovenox for VTE Prophalxis 5. Regular diet, no further diarrhea/vomiting.
[2019-05-03] MEDS: Pantoprazole 40 MG Tab.CR PO SCH (05:12)
--- NOTE | 2019-05-03 07:51 | PCM.PN ---
- General Info Date of Service: 05/03/19 Subjective Update: Patient is more alert, making more coherent words/sentences. No diarrhea, vomiting. States has not had a bowel movement per her chart since 04/26 but she stated yesterday that she had a bowel movement on Wednesday but nothing is documented in her chart. She had substance abuse consult yesterday (see note for details) and also met with [facility] as possible safe housing. Her brother is looking at the financial part of it and would hire someone to move her things. [facility] contacted for community health-appointed guardian so we can get necessary neurophysiological testing and comprehensive visit for substance use disorder once she is discharged as those services are not available as inpatient. - Patient Data Vitals - Most Recent: Last Vital Signs Temp 36.6 C 05/03/19 00:00 Pulse 89 05/03/19 00:00 Resp 18 05/03/19 00:00 BP 121/73 05/03/19 00:00 Pulse Ox 97 05/03/19 00:00 Weight - Most Recent: 44.996 kg Lab Results Last 24 Hours: Laboratory Results - last 24 hr 05/03/19 Range/Units 05:55 Sodium 139 (135-145) mmol/L Potassium 4.1 (3.5-5.3) mmol/L Chloride 100 D (100-110) mmol/L Carbon Dioxide 32 (21-32) mmol/L BUN 24 H D (7-18) mg/dL Creatinine 0.6 (0.55-1.02) mg/dL Est Cr Clr Drug Dosing 67.29 mL/min Estimated GFR (MDRD) > 60 (>60) BUN/Creatinine Ratio 40.0 H (9-20) Glucose 98 (80-116) mg/dL Calcium 9.7 (8.6-10.2) mg/dL Total Bilirubin 0.2 (0.1-1.3) mg/dL AST 26 H D (5-25) IU/L ALT 37 H (12-36) U/L Alkaline Phosphatase 97 (56-112) IU/L Total Protein 7.0 (6.0-8.0) g/dL Albumin 3.3 (3.2-4.6) g/dL Globulin 3.7 g/dL Albumin/Globulin Ratio 0.9 Med Orders - Current: Current Medications Acetaminophen (Tylenol Extra Strength) 500 mg PO Q4H PRN PRN Reason: Pain (Mild 1-3)/fever Last Admin: 05/02/19 17:22 Dose: 500 mg Enoxaparin Sodium (Lovenox) 30 mg SUBCUT Q24H [facility] Last Admin: 05/02/19 09:35 Dose: 30 mg Sodium Chloride (Normal Saline) 1,000 mls @ 70 mls/hr IV ASDIRECTED [facility] Lorazepam (Ativan) 1 - 3 mg IVPUSH Q2H PRN; Protocol PRN Reason: Withdrawal Symptoms Last Admin: 04/29/19 12:57 Dose: 1 mg Lorazepam (Ativan) 2 mg PO Q2H PRN; Protocol PRN Reason: Withdrawal Symptoms Last Admin: 04/30/19 23:55 Dose: 2 mg Magnesium Oxide (Magnesium Oxide) 400 mg PO DAILY [facility] Last Admin: 05/02/19 09:35 Dose: 400 mg Pantoprazole Sodium (Protonix) 40 mg PO 0600 [facility] Last Admin: 05/03/19 05:12 Dose: 40 mg Potassium Chloride (Klor-Con M20) 20 meq PO BID [facility] Last Admin: 05/02/19 20:24 Dose: 20 meq Sodium Chloride (Saline Flush) 10 ml FLUSH ASDIRECTED PRN PRN Reason: Keep Vein Open Last Admin: 05/01/19 03:08 Dose: 10 ml Thiamine HCl (Vitamin B-1) 100 mg PO DAILY [facility] Last Admin: 05/02/19 09:35 Dose: 100 mg Tramadol HCl (Ultram) 100 mg PO Q8H PRN PRN Reason: Pain Last Admin: 05/02/19 13:17 Dose: 100 mg Discontinued Medications Sodium Chloride (Normal Saline) 1,000 mls @ 999 mls/hr IV ASDIRECTED [facility] Last Admin: 04/26/19 15:01 Dose: 500 mls/hr Sodium Chloride (Normal Saline) 1,000 mls @ 999 mls/hr IV ASDIRECTED [facility] Last Admin: 04/26/19 13:13 Dose: 999 mls/hr Famotidine 20 mg/ Premix 50 mls @ 200 mls/hr IV ONETIME ONE Stop: 04/26/19 15:40 Last Admin: 04/26/19 16:20 Dose: 200 mls/hr Sodium Chloride (Normal Saline) 1,000 mls @ 70 mls/hr IV ASDIRECTED [facility] Last Admin: 04/28/19 00:41 Dose: 150 mls/hr Potassium Chloride 20 meq/ (Premix) 100 mls @ 50 mls/hr IV Q2H [facility] Stop: 04/28/19 17:59 Last Admin: 04/28/19 18:33 Dose: Not Given Lorazepam (Ativan) 2 mg IVPUSH ONETIME ONE Stop: 04/26/19 11:58 Last Admin: 04/26/19 12:08 Dose: 2 mg Lorazepam (Ativan) 1 - 3 mg IVPUSH Q4H PRN; Protocol PRN Reason: Withdrawal Symptoms Last Admin: 04/28/19 12:37 Dose: 1 mg Morphine Sulfate (Morphine) 1 mg IVPUSH Q1H PRN PRN Reason: Pain Last Admin: 05/01/19 03:07 Dose: 1 mg Pantoprazole Sodium (Protonix Iv) 40 mg IVPUSH DAILY [facility] Last Admin: 04/30/19 09:08 Dose: 40 mg Potassium Chloride (Klor-Con M20) 20 meq PO DAILY [facility] Last Admin: 04/28/19 08:16 Dose: 20 meq Potassium Chloride (Potassium Chloride) 50 meq IV ONETIME ONE Stop: 04/28/19 09:16 Potassium Chloride (Klor-Con M20) 20 meq PO TID [facility] Last Admin: 04/29/19 20:04 Dose: 20 meq Thiamine HCl (Vitamin B-1) 100 mg IV DAILY [facility] Last Admin: 05/01/19 09:54 Dose: Not Given - Exam General: Alert, Oriented (person), Cooperative, No Acute Distress Lungs: Clear to Auscultation, Normal Respiratory Effort GI/Abdominal Exam: Normal Bowel Sounds, Soft, Non-Tender, No Distention Extremities: No Pedal Edema Skin: Dry (skin) - Problem List & Annotations (1) Alcohol withdrawal SNOMED Code(s): 761200488 Code(s): F10.239 - ALCOHOL DEPENDENCE WITH WITHDRAWAL, UNSPECIFIED Status: Acute Current Visit: Yes (2) Cognitive impairment SNOMED Code(s): 887427385 Code(s): R41.89 - OTH SYMPTOMS AND SIGNS W COGNITIVE FUNCTIONS AND AWARENESS Status: Acute Current Visit: Yes Annotation/Comment:: secondary to long standing alcoholism, moderate(score 19/30). (3) Chronic pain syndrome SNOMED Code(s): 899102427 Code(s): G89.4 - CHRONIC PAIN SYNDROME Status: Chronic Current Visit: No (4) H/O ETOH abuse SNOMED Code(s): 331622727 Code(s): Z87.898 - PERSONAL HISTORY OF OTHER SPECIFIED CONDITIONS Status: Acute Current Visit: No - Problem List Review Problem List Initiated/Reviewed/Updated: Yes - Plan Plan:: 1. Social service: No safe discharge to date. Looking at [facility] for housing option for her so she can stay in [place]. 2. Chemical dependence consult: recommended safe housing, Complete neuropsychological testing and Complete a Comprehensive Assessment for Substance Use Disorder to determine the appropriate level of treatment: awaiting state appointed guardian to be made. 3. OT cognitive screen showed moderate neurocognitive impairment with score 19/ 30, need guardian assigned to get recommended testing(see above #2) done as she would be no competent to sign for consent of treatment. 4. Lovenox for VTE Prophalxis 5. Regular diet, MiraLax daily as needed constipation.
[2019-05-03] MEDS: Enoxaparin 30 MG/0.3 ML Syringe SUBCUT SCH (08:39)
[2019-05-03] MEDS: Potassium Chloride 20 MEQ Tab.ER PO SCH ×2 (08:39→20:47)
[2019-05-03] MEDS: Magnesium Oxide 400 MG Tab PO SCH (08:39)
[2019-05-03] MEDS: Thiamine 100 MG Tab PO SCH (08:39)
[2019-05-03] MEDS ORDERED: Polyethylene Glycol 3350 Powder 17 GM Packet PO SCH (09:00)
[2019-05-03] MEDS: traMADol 50 MG Tab PO PRN ×2 (09:27→17:27)
[2019-05-03] MEDS: Multivitamin Tab PO SCH (11:15)
[2019-05-03] MEDS: Sertraline 25 MG Tab PO SCH (11:15)
[2019-05-03] MEDS: DULoxetine 20 MG Cap PO SCH (11:15)
[2019-05-03] MEDS: Folic Acid 1 MG Tab PO SCH (11:15)
[2019-05-03] MEDS: ACAMPROSATE 333 MG PO SCH ×2 (13:40→20:48)
[2019-05-04] MEDS: Pantoprazole 40 MG Tab.CR PO SCH (05:37)
[2019-05-04] MEDS: traMADol 50 MG Tab PO PRN ×3 (07:46→23:49)
[2019-05-04] MEDS: ACAMPROSATE 333 MG PO SCH ×3 (09:42→20:33)
[2019-05-04] MEDS: Polyethylene Glycol 3350 Powder 17 GM Packet PO PRN (09:42)
[2019-05-04] MEDS: Multivitamin Tab PO SCH (09:43)
[2019-05-04] MEDS: Potassium Chloride 20 MEQ Tab.ER PO SCH ×2 (09:43→20:34)
[2019-05-04] MEDS: Magnesium Oxide 400 MG Tab PO SCH (09:43)
[2019-05-04] MEDS: Thiamine 100 MG Tab PO SCH (09:43)
[2019-05-04] MEDS: Folic Acid 1 MG Tab PO SCH (09:43)
[2019-05-04] MEDS: Sertraline 25 MG Tab PO SCH (09:43)
[2019-05-04] MEDS: DULoxetine 20 MG Cap PO SCH (09:43)
[2019-05-04] MEDS: Enoxaparin 30 MG/0.3 ML Syringe SUBCUT SCH (09:45)
--- NOTE | 2019-05-04 13:20 | PCM.PN ---
- General Info Date of Service: 05/04/19 Subjective Update: Patient states doing well independent in room. Eating ok. Had bowel movement. Knows her apartment is not a safe place for her. Waiting on appointment of guardian. Brother is looking into [facility] for placement. - Patient Data Vitals - Most Recent: Last Vital Signs Temp 36.9 C 05/04/19 07:48 Pulse 94 05/04/19 07:48 Resp 16 05/04/19 07:48 BP 130/76 05/04/19 07:48 Pulse Ox 97 05/04/19 07:48 Weight - Most Recent: 44.996 kg Med Orders - Current: Current Medications Acetaminophen (Tylenol Extra Strength) 500 mg PO Q4H PRN PRN Reason: Pain (Mild 1-3)/fever Last Admin: 05/02/19 17:22 Dose: 500 mg Duloxetine HCl (Cymbalta) 20 mg PO DAILY [facility] Last Admin: 05/04/19 09:43 Dose: 20 mg Enoxaparin Sodium (Lovenox) 30 mg SUBCUT Q24H [facility] Last Admin: 05/04/19 09:45 Dose: 30 mg Folic Acid (Folic Acid) 1 mg PO DAILY [facility] Last Admin: 05/04/19 09:43 Dose: 1 mg Sodium Chloride (Normal Saline) 1,000 mls @ 70 mls/hr IV ASDIRECTED [facility] Magnesium Oxide (Magnesium Oxide) 400 mg PO DAILY [facility] Last Admin: 05/04/19 09:43 Dose: 400 mg Multivitamins/Minerals/Vitamin C (Tab-A-Jocelin) 1 tab PO DAILY [facility] Last Admin: 05/04/19 09:43 Dose: 1 tab Acamprosate [Campral (] 333 Mg *Ptom) 666 mg PO TID [facility] Last Admin: 05/04/19 09:42 Dose: 666 mg Pantoprazole Sodium (Protonix) 40 mg PO 0600 [facility] Last Admin: 05/04/19 05:37 Dose: 40 mg Polyethylene Glycol (Miralax) 17 gm PO DAILY PRN PRN Reason: Constipation Last Admin: 05/04/19 09:42 Dose: 17 gm Potassium Chloride (Klor-Con M20) 20 meq PO BID [facility] Last Admin: 05/04/19 09:43 Dose: 20 meq Sertraline HCl (Zoloft) 75 mg PO DAILY [facility] Last Admin: 05/04/19 09:43 Dose: 75 mg Sodium Chloride (Saline Flush) 10 ml FLUSH ASDIRECTED PRN PRN Reason: Keep Vein Open Last Admin: 05/01/19 03:08 Dose: 10 ml Thiamine HCl (Vitamin B-1) 100 mg PO DAILY [facility] Last Admin: 05/04/19 09:43 Dose: 100 mg Tramadol HCl (Ultram) 100 mg PO Q8H PRN PRN Reason: Pain Last Admin: 05/04/19 07:46 Dose: 100 mg Discontinued Medications Sodium Chloride (Normal Saline) 1,000 mls @ 999 mls/hr IV ASDIRECTED [facility] Last Admin: 04/26/19 15:01 Dose: 500 mls/hr Sodium Chloride (Normal Saline) 1,000 mls @ 999 mls/hr IV ASDIRECTED [facility] Last Admin: 04/26/19 13:13 Dose: 999 mls/hr Famotidine 20 mg/ Premix 50 mls @ 200 mls/hr IV ONETIME ONE Stop: 04/26/19 15:40 Last Admin: 04/26/19 16:20 Dose: 200 mls/hr Sodium Chloride (Normal Saline) 1,000 mls @ 70 mls/hr IV ASDIRECTED [facility] Last Admin: 04/28/19 00:41 Dose: 150 mls/hr Potassium Chloride 20 meq/ (Premix) 100 mls @ 50 mls/hr IV Q2H [facility] Stop: 04/28/19 17:59 Last Admin: 04/28/19 18:33 Dose: Not Given Lorazepam (Ativan) 2 mg IVPUSH ONETIME ONE Stop: 04/26/19 11:58 Last Admin: 04/26/19 12:08 Dose: 2 mg Lorazepam (Ativan) 1 - 3 mg IVPUSH Q4H PRN; Protocol PRN Reason: Withdrawal Symptoms Last Admin: 04/28/19 12:37 Dose: 1 mg Lorazepam (Ativan) 1 - 3 mg IVPUSH Q2H PRN; Protocol PRN Reason: Withdrawal Symptoms Last Admin: 04/29/19 12:57 Dose: 1 mg Lorazepam (Ativan) 2 mg PO Q2H PRN; Protocol PRN Reason: Withdrawal Symptoms Last Admin: 04/30/19 23:55 Dose: 2 mg Morphine Sulfate (Morphine) 1 mg IVPUSH Q1H PRN PRN Reason: Pain Last Admin: 05/01/19 03:07 Dose: 1 mg Pantoprazole Sodium (Protonix Iv) 40 mg IVPUSH DAILY [facility] Last Admin: 04/30/19 09:08 Dose: 40 mg Polyethylene Glycol (Miralax) 17 gm PO DAILY [facility] Potassium Chloride (Klor-Con M20) 20 meq PO DAILY [facility] Last Admin: 04/28/19 08:16 Dose: 20 meq Potassium Chloride (Potassium Chloride) 50 meq IV ONETIME ONE Stop: 04/28/19 09:16 Potassium Chloride (Klor-Con M20) 20 meq PO TID [facility] Last Admin: 04/29/19 20:04 Dose: 20 meq Thiamine HCl (Vitamin B-1) 100 mg IV DAILY [facility] Last Admin: 05/01/19 09:54 Dose: Not Given - Exam General: Alert, Oriented (person), Cooperative, No Acute Distress Lungs: Clear to Auscultation, Normal Respiratory Effort Cardiovascular: Regular Rate, Regular Rhythm GI/Abdominal Exam: Normal Bowel Sounds, Soft, Non-Tender, No Distention Extremities: No Pedal Edema Skin: Warm, Dry - Problem List & Annotations (1) Alcohol withdrawal SNOMED Code(s): 076381198 Code(s): F10.239 - ALCOHOL DEPENDENCE WITH WITHDRAWAL, UNSPECIFIED Status: Acute Current Visit: Yes (2) Cognitive impairment SNOMED Code(s): 269768642 Code(s): R41.89 - OTH SYMPTOMS AND SIGNS W COGNITIVE FUNCTIONS AND AWARENESS Status: Acute Current Visit: Yes Annotation/Comment:: secondary to long standing alcoholism, moderate(score 19/30). (3) Chronic pain syndrome SNOMED Code(s): 013594801 Code(s): G89.4 - CHRONIC PAIN SYNDROME Status: Chronic Current Visit: No (4) H/O ETOH abuse SNOMED Code(s): 415496021 Code(s): Z87.898 - PERSONAL HISTORY OF OTHER SPECIFIED CONDITIONS Status: Acute Current Visit: No - Problem List Review Problem List Initiated/Reviewed/Updated: Yes - My Orders Last 24 Hours: My Active Orders 05/03/19 14:00 Acamprosate [Campral] 666 mg PO TID - Plan Plan:: 1. Social service: No safe discharge to date. Looking at [facility] for housing option. 2. Chemical dependence consult: recommended safe housing, Complete neuropsychological testing and Complete a Comprehensive Assessment for Substance Use Disorder to determine the appropriate level of treatment: awaiting state appointed guardian to be made. 3. OT cognitive screen showed moderate neurocognitive impairment with score 19/ 30, need guardian assigned to get recommended testing(see above #2) done as she would be no competent to sign for consent of treatment. 4. Lovenox for VTE Prophylaxis 5. Regular diet. 6. Stable, awaiting placement.
[2019-05-05] MEDS: Pantoprazole 40 MG Tab.CR PO SCH ×2 (04:55→05:01)
[2019-05-05] MEDS: ACAMPROSATE 333 MG PO SCH ×3 (08:13→20:24)
[2019-05-05] MEDS: DULoxetine 20 MG Cap PO SCH (08:13)
[2019-05-05] MEDS: Folic Acid 1 MG Tab PO SCH (08:14)
[2019-05-05] MEDS: Potassium Chloride 20 MEQ Tab.ER PO SCH ×2 (08:15→20:23)
[2019-05-05] MEDS: Magnesium Oxide 400 MG Tab PO SCH (08:16)
[2019-05-05] MEDS: Multivitamin Tab PO SCH (08:17)
[2019-05-05] MEDS: Thiamine 100 MG Tab PO SCH (08:17)
[2019-05-05] MEDS: Sertraline 25 MG Tab PO SCH (08:17)
[2019-05-05] MEDS: Acetaminophen 500 MG Tab PO PRN (08:18)
[2019-05-05] MEDS: Enoxaparin 30 MG/0.3 ML Syringe SUBCUT SCH (08:33)
--- NOTE | 2019-05-05 08:46 | PCM.PN ---
- General Info Date of Service: 05/05/19 Subjective Update: Patient states doing well independent in room. Eating ok. Had bowel movement. Knows her apartment is not a safe place for her. Waiting on appointment of guardian. Brother is looking into [facility] for placement.Some epigastric pain,midl-moderate Functional Status: Reports: Pain Controlled - Review of Systems General: Reports: No Symptoms HEENT: Reports: No Symptoms Pulmonary: Reports: No Symptoms Cardiovascular: Reports: No Symptoms Gastrointestinal: Reports: Abdominal Pain Genitourinary: Reports: No Symptoms Musculoskeletal: Reports: No Symptoms - Patient Data Vitals - Most Recent: Last Vital Signs Temp 98.1 F 05/05/19 07:51 Pulse 93 05/05/19 07:51 Resp 16 05/05/19 07:51 BP 128/81 05/05/19 07:51 Pulse Ox 93 L 05/05/19 07:51 Weight - Most Recent: 44.996 kg Med Orders - Current: Current Medications Acetaminophen (Tylenol Extra Strength) 500 mg PO Q4H PRN PRN Reason: Pain (Mild 1-3)/fever Last Admin: 05/05/19 08:18 Dose: 500 mg Duloxetine HCl (Cymbalta) 20 mg PO DAILY [facility] Last Admin: 05/05/19 08:13 Dose: 20 mg Enoxaparin Sodium (Lovenox) 30 mg SUBCUT Q24H [facility] Last Admin: 05/05/19 08:33 Dose: 30 mg Folic Acid (Folic Acid) 1 mg PO DAILY [facility] Last Admin: 05/05/19 08:14 Dose: 1 mg Sodium Chloride (Normal Saline) 1,000 mls @ 70 mls/hr IV ASDIRECTED [facility] Magnesium Oxide (Magnesium Oxide) 400 mg PO DAILY [facility] Last Admin: 05/05/19 08:16 Dose: 400 mg Multivitamins/Minerals/Vitamin C (Tab-A-Jocelin) 1 tab PO DAILY [facility] Last Admin: 05/05/19 08:17 Dose: 1 tab Acamprosate [Campral (] 333 Mg *Ptom) 666 mg PO TID [facility] Last Admin: 05/05/19 08:13 Dose: 666 mg Pantoprazole Sodium (Protonix) 40 mg PO 0600 [facility] Last Admin: 05/05/19 05:01 Dose: 40 mg Polyethylene Glycol (Miralax) 17 gm PO DAILY PRN PRN Reason: Constipation Last Admin: 05/04/19 09:42 Dose: 17 gm Potassium Chloride (Klor-Con M20) 20 meq PO BID [facility] Last Admin: 05/05/19 08:15 Dose: 20 meq Sertraline HCl (Zoloft) 75 mg PO DAILY [facility] Last Admin: 05/05/19 08:17 Dose: 75 mg Sodium Chloride (Saline Flush) 10 ml FLUSH ASDIRECTED PRN PRN Reason: Keep Vein Open Last Admin: 05/01/19 03:08 Dose: 10 ml Thiamine HCl (Vitamin B-1) 100 mg PO DAILY [facility] Last Admin: 05/05/19 08:17 Dose: 100 mg Tramadol HCl (Ultram) 100 mg PO Q8H PRN PRN Reason: Pain Last Admin: 05/04/19 23:49 Dose: 100 mg Discontinued Medications Sodium Chloride (Normal Saline) 1,000 mls @ 999 mls/hr IV ASDIRECTED [facility] Last Admin: 04/26/19 15:01 Dose: 500 mls/hr Sodium Chloride (Normal Saline) 1,000 mls @ 999 mls/hr IV ASDIRECTED [facility] Last Admin: 04/26/19 13:13 Dose: 999 mls/hr Famotidine 20 mg/ Premix 50 mls @ 200 mls/hr IV ONETIME ONE Stop: 04/26/19 15:40 Last Admin: 04/26/19 16:20 Dose: 200 mls/hr Sodium Chloride (Normal Saline) 1,000 mls @ 70 mls/hr IV ASDIRECTED [facility] Last Admin: 04/28/19 00:41 Dose: 150 mls/hr Potassium Chloride 20 meq/ (Premix) 100 mls @ 50 mls/hr IV Q2H [facility] Stop: 04/28/19 17:59 Last Admin: 04/28/19 18:33 Dose: Not Given Lorazepam (Ativan) 2 mg IVPUSH ONETIME ONE Stop: 04/26/19 11:58 Last Admin: 04/26/19 12:08 Dose: 2 mg Lorazepam (Ativan) 1 - 3 mg IVPUSH Q4H PRN; Protocol PRN Reason: Withdrawal Symptoms Last Admin: 04/28/19 12:37 Dose: 1 mg Lorazepam (Ativan) 1 - 3 mg IVPUSH Q2H PRN; Protocol PRN Reason: Withdrawal Symptoms Last Admin: 04/29/19 12:57 Dose: 1 mg Lorazepam (Ativan) 2 mg PO Q2H PRN; Protocol PRN Reason: Withdrawal Symptoms Last Admin: 04/30/19 23:55 Dose: 2 mg Morphine Sulfate (Morphine) 1 mg IVPUSH Q1H PRN PRN Reason: Pain Last Admin: 05/01/19 03:07 Dose: 1 mg Pantoprazole Sodium (Protonix Iv) 40 mg IVPUSH DAILY [facility] Last Admin: 04/30/19 09:08 Dose: 40 mg Polyethylene Glycol (Miralax) 17 gm PO DAILY [facility] Potassium Chloride (Klor-Con M20) 20 meq PO DAILY [facility] Last Admin: 04/28/19 08:16 Dose: 20 meq Potassium Chloride (Potassium Chloride) 50 meq IV ONETIME ONE Stop: 04/28/19 09:16 Potassium Chloride (Klor-Con M20) 20 meq PO TID [facility] Last Admin: 04/29/19 20:04 Dose: 20 meq Thiamine HCl (Vitamin B-1) 100 mg IV DAILY [facility] Last Admin: 05/01/19 09:54 Dose: Not Given - Exam General: Alert, Oriented HEENT: Pupils Equal Lungs: Clear to Auscultation Cardiovascular: Regular Rate GI/Abdominal Exam: Normal Bowel Sounds Back Exam: Normal Inspection Psy/Mental Status: Alert, Normal Affect - Problem List & Annotations (1) Chronic abdominal pain SNOMED Code(s): 020613911 Code(s): R10.9 - UNSPECIFIED ABDOMINAL PAIN; G89.29 - OTHER CHRONIC PAIN Status: Acute Current Visit: Yes (2) Alcohol withdrawal SNOMED Code(s): 454128924 Code(s): F10.239 - ALCOHOL DEPENDENCE WITH WITHDRAWAL, UNSPECIFIED Status: Acute Current Visit: Yes Qualifiers: Complication of substance-induced condition: with unspecified complication Qualified Code(s): F10.239 - Alcohol dependence with withdrawal, unspecified (3) H/O ETOH abuse SNOMED Code(s): 484637745 Code(s): Z87.898 - PERSONAL HISTORY OF OTHER SPECIFIED CONDITIONS Status: Acute Current Visit: No (4) MDD (major depressive disorder) SNOMED Code(s): 988211212 Code(s): F32.9 - MAJOR DEPRESSIVE DISORDER, SINGLE EPISODE, UNSPECIFIED Status: Acute Current Visit: No Qualifiers: Major depression recurrence: recurrent Active/Remission status: currently active (5) Ambulatory dysfunction SNOMED Code(s): 825876817 Code(s): R26.2 - DIFFICULTY IN WALKING, NOT ELSEWHERE CLASSIFIED Status: Acute Current Visit: Yes - Problem List Review Problem List Initiated/Reviewed/Updated: Yes - Plan Plan:: Continue current care. Awaiting disposition-?TTV
[2019-05-05] MEDS: traMADol 50 MG Tab PO PRN ×2 (10:25→19:04)
[2019-05-06] MEDS: Pantoprazole 40 MG Tab.CR PO SCH (05:55)
[2019-05-06] MEDS: ACAMPROSATE 333 MG PO SCH ×3 (08:02→21:02)
[2019-05-06] MEDS: DULoxetine 20 MG Cap PO SCH (08:03)
[2019-05-06] MEDS: Potassium Chloride 20 MEQ Tab.ER PO SCH ×2 (08:03→21:03)
[2019-05-06] MEDS: Folic Acid 1 MG Tab PO SCH (08:03)
[2019-05-06] MEDS: Sertraline 25 MG Tab PO SCH (08:04)
[2019-05-06] MEDS: Magnesium Oxide 400 MG Tab PO SCH (08:04)
[2019-05-06] MEDS: Multivitamin Tab PO SCH (08:04)
[2019-05-06] MEDS: Thiamine 100 MG Tab PO SCH (08:04)
--- NOTE | 2019-05-06 09:30 | PCM.PN ---
- General Info Date of Service: 05/06/19 Subjective Update: Feels very well. Functional Status: Reports: Pain Controlled - Review of Systems General: Reports: No Symptoms HEENT: Reports: No Symptoms Pulmonary: Reports: No Symptoms Cardiovascular: Reports: No Symptoms - Patient Data Vitals - Most Recent: Last Vital Signs Temp 98.5 F 05/06/19 08:00 Pulse 88 05/06/19 08:00 Resp 20 05/06/19 08:00 BP 126/74 05/06/19 08:00 Pulse Ox 94 L 05/06/19 08:00 Weight - Most Recent: 44.996 kg Lab Results Last 24 Hours: Laboratory Results - last 24 hr 05/06/19 Range/Units 06:05 WBC 5.4 (4.5-12.0) X10-3/uL RBC 3.52 (3.23-5.20) x10(6)uL Hgb 10.7 L (11.5-15.5) g/dL Hct 32.8 (30.0-51.3) % MCV 93.1 (80-96) fL MCH 30.3 (27.7-33.6) pg MCHC 32.5 (32.2-35.4) g/dL RDW 14.9 (11.5-15.5) % Plt Count 489 H (125-369) X10(3)uL MPV 7.9 (7.4-10.4) fL Add Manual Diff Yes Neutrophils % (Manual) 47 (46-82) % Lymphocytes % (Manual) 29 (13-37) % Monocytes % (Manual) 19 H (4-12) % Eosinophils % (Manual) 3 (0-5) % Basophils % (Manual) 2 (0-2) % Med Orders - Current: Current Medications Acetaminophen (Tylenol Extra Strength) 500 mg PO Q4H PRN PRN Reason: Pain (Mild 1-3)/fever Last Admin: 05/05/19 08:18 Dose: 500 mg Duloxetine HCl (Cymbalta) 20 mg PO DAILY [facility] Last Admin: 05/06/19 08:03 Dose: 20 mg Enoxaparin Sodium (Lovenox) 30 mg SUBCUT Q24H [facility] Last Admin: 05/05/19 08:33 Dose: 30 mg Folic Acid (Folic Acid) 1 mg PO DAILY [facility] Last Admin: 05/06/19 08:03 Dose: 1 mg Sodium Chloride (Normal Saline) 1,000 mls @ 70 mls/hr IV ASDIRECTED [facility] Magnesium Oxide (Magnesium Oxide) 400 mg PO DAILY [facility] Last Admin: 05/06/19 08:04 Dose: 400 mg Multivitamins/Minerals/Vitamin C (Tab-A-Jocelin) 1 tab PO DAILY [facility] Last Admin: 05/06/19 08:04 Dose: 1 tab Acamprosate [Campral (] 333 Mg *Ptom) 666 mg PO TID [facility] Last Admin: 05/06/19 08:02 Dose: 666 mg Pantoprazole Sodium (Protonix) 40 mg PO 0600 [facility] Last Admin: 05/06/19 05:55 Dose: 40 mg Polyethylene Glycol (Miralax) 17 gm PO DAILY PRN PRN Reason: Constipation Last Admin: 05/04/19 09:42 Dose: 17 gm Potassium Chloride (Klor-Con M20) 20 meq PO BID [facility] Last Admin: 05/06/19 08:03 Dose: 20 meq Sertraline HCl (Zoloft) 75 mg PO DAILY [facility] Last Admin: 05/06/19 08:04 Dose: 75 mg Sodium Chloride (Saline Flush) 10 ml FLUSH ASDIRECTED PRN PRN Reason: Keep Vein Open Last Admin: 05/01/19 03:08 Dose: 10 ml Thiamine HCl (Vitamin B-1) 100 mg PO DAILY [facility] Last Admin: 05/06/19 08:04 Dose: 100 mg Tramadol HCl (Ultram) 100 mg PO Q8H PRN PRN Reason: Pain Last Admin: 05/05/19 19:04 Dose: 100 mg Discontinued Medications Sodium Chloride (Normal Saline) 1,000 mls @ 999 mls/hr IV ASDIRECTED [facility] Last Admin: 04/26/19 15:01 Dose: 500 mls/hr Sodium Chloride (Normal Saline) 1,000 mls @ 999 mls/hr IV ASDIRECTED [facility] Last Admin: 04/26/19 13:13 Dose: 999 mls/hr Famotidine 20 mg/ Premix 50 mls @ 200 mls/hr IV ONETIME ONE Stop: 04/26/19 15:40 Last Admin: 04/26/19 16:20 Dose: 200 mls/hr Sodium Chloride (Normal Saline) 1,000 mls @ 70 mls/hr IV ASDIRECTED [facility] Last Admin: 04/28/19 00:41 Dose: 150 mls/hr Potassium Chloride 20 meq/ (Premix) 100 mls @ 50 mls/hr IV Q2H [facility] Stop: 04/28/19 17:59 Last Admin: 04/28/19 18:33 Dose: Not Given Lorazepam (Ativan) 2 mg IVPUSH ONETIME ONE Stop: 04/26/19 11:58 Last Admin: 04/26/19 12:08 Dose: 2 mg Lorazepam (Ativan) 1 - 3 mg IVPUSH Q4H PRN; Protocol PRN Reason: Withdrawal Symptoms Last Admin: 04/28/19 12:37 Dose: 1 mg Lorazepam (Ativan) 1 - 3 mg IVPUSH Q2H PRN; Protocol PRN Reason: Withdrawal Symptoms Last Admin: 04/29/19 12:57 Dose: 1 mg Lorazepam (Ativan) 2 mg PO Q2H PRN; Protocol PRN Reason: Withdrawal Symptoms Last Admin: 04/30/19 23:55 Dose: 2 mg Morphine Sulfate (Morphine) 1 mg IVPUSH Q1H PRN PRN Reason: Pain Last Admin: 05/01/19 03:07 Dose: 1 mg Pantoprazole Sodium (Protonix Iv) 40 mg IVPUSH DAILY [facility] Last Admin: 04/30/19 09:08 Dose: 40 mg Polyethylene Glycol (Miralax) 17 gm PO DAILY [facility] Potassium Chloride (Klor-Con M20) 20 meq PO DAILY [facility] Last Admin: 04/28/19 08:16 Dose: 20 meq Potassium Chloride (Potassium Chloride) 50 meq IV ONETIME ONE Stop: 04/28/19 09:16 Potassium Chloride (Klor-Con M20) 20 meq PO TID [facility] Last Admin: 04/29/19 20:04 Dose: 20 meq Thiamine HCl (Vitamin B-1) 100 mg IV DAILY [facility] Last Admin: 05/01/19 09:54 Dose: Not Given - Exam General: Alert, Oriented HEENT: Pupils Equal Neck: Supple Skin: Warm Neurological: No New Focal Deficit Psy/Mental Status: Alert, Normal Affect - Problem List & Annotations (1) Chronic abdominal pain SNOMED Code(s): 828199054 Code(s): R10.9 - UNSPECIFIED ABDOMINAL PAIN; G89.29 - OTHER CHRONIC PAIN Status: Acute Current Visit: Yes (2) Alcohol withdrawal SNOMED Code(s): 343149456 Code(s): F10.239 - ALCOHOL DEPENDENCE WITH WITHDRAWAL, UNSPECIFIED Status: Acute Current Visit: Yes Qualifiers: Complication of substance-induced condition: with unspecified complication Qualified Code(s): F10.239 - Alcohol dependence with withdrawal, unspecified (3) H/O ETOH abuse SNOMED Code(s): 230915827 Code(s): Z87.898 - PERSONAL HISTORY OF OTHER SPECIFIED CONDITIONS Status: Acute Current Visit: No (4) MDD (major depressive disorder) SNOMED Code(s): 084344040 Code(s): F32.9 - MAJOR DEPRESSIVE DISORDER, SINGLE EPISODE, UNSPECIFIED Status: Acute Current Visit: No Qualifiers: Major depression recurrence: recurrent Active/Remission status: currently active (5) Ambulatory dysfunction SNOMED Code(s): 758364378 Code(s): R26.2 - DIFFICULTY IN WALKING, NOT ELSEWHERE CLASSIFIED Status: Acute Current Visit: Yes - Problem List Review Problem List Initiated/Reviewed/Updated: Yes - Plan Plan:: Continue current care. Awaiting disposition-in patient alcohol treatment
[2019-05-06] MEDS: Enoxaparin 30 MG/0.3 ML Syringe SUBCUT SCH (09:46)
[2019-05-06] MEDS: traMADol 50 MG Tab PO PRN ×2 (12:30→21:07)
[2019-05-07] MEDS: Pantoprazole 40 MG Tab.CR PO SCH (06:24)
[2019-05-07] MEDS ORDERED: Ondansetron 4 MG Tab.DIS PO PRN (08:28)
--- NOTE | 2019-05-07 08:30 | PCM.PN ---
- General Info Date of Service: 05/07/19 Subjective Update: Has had nausea and vomiting, dry heaves. This happens periodically. She has no appetite.. - Review of Systems HEENT: Reports: No Symptoms Pulmonary: Reports: No Symptoms Cardiovascular: Reports: No Symptoms - Patient Data Vitals - Most Recent: Last Vital Signs Temp 97.9 F 05/07/19 07:44 Pulse 86 05/07/19 07:44 Resp 20 05/07/19 07:44 BP 139/77 05/07/19 07:44 Pulse Ox 96 05/07/19 07:44 Weight - Most Recent: 44.996 kg Med Orders - Current: Current Medications Acetaminophen (Tylenol Extra Strength) 500 mg PO Q4H PRN PRN Reason: Pain (Mild 1-3)/fever Last Admin: 05/05/19 08:18 Dose: 500 mg Duloxetine HCl (Cymbalta) 20 mg PO DAILY [facility] Last Admin: 05/06/19 08:03 Dose: 20 mg Enoxaparin Sodium (Lovenox) 30 mg SUBCUT Q24H [facility] Last Admin: 05/06/19 09:46 Dose: 30 mg Folic Acid (Folic Acid) 1 mg PO DAILY [facility] Last Admin: 05/06/19 08:03 Dose: 1 mg Sodium Chloride (Normal Saline) 1,000 mls @ 70 mls/hr IV ASDIRECTED [facility] Magnesium Oxide (Magnesium Oxide) 400 mg PO DAILY [facility] Last Admin: 05/06/19 08:04 Dose: 400 mg Multivitamins/Minerals/Vitamin C (Tab-A-Jcoelin) 1 tab PO DAILY [facility] Last Admin: 05/06/19 08:04 Dose: 1 tab Acamprosate [Campral (] 333 Mg *Ptom) 666 mg PO TID [facility] Last Admin: 05/06/19 21:02 Dose: 666 mg Pantoprazole Sodium (Protonix) 40 mg PO 0600 [facility] Last Admin: 05/07/19 06:24 Dose: 40 mg Polyethylene Glycol (Miralax) 17 gm PO DAILY PRN PRN Reason: Constipation Last Admin: 05/04/19 09:42 Dose: 17 gm Potassium Chloride (Klor-Con M20) 20 meq PO BID [facility] Last Admin: 05/06/19 21:03 Dose: 20 meq Sertraline HCl (Zoloft) 75 mg PO DAILY [facility] Last Admin: 05/06/19 08:04 Dose: 75 mg Sodium Chloride (Saline Flush) 10 ml FLUSH ASDIRECTED PRN PRN Reason: Keep Vein Open Last Admin: 05/01/19 03:08 Dose: 10 ml Thiamine HCl (Vitamin B-1) 100 mg PO DAILY [facility] Last Admin: 05/06/19 08:04 Dose: 100 mg Tramadol HCl (Ultram) 100 mg PO Q8H PRN PRN Reason: Pain Last Admin: 05/06/19 21:07 Dose: 100 mg Discontinued Medications Sodium Chloride (Normal Saline) 1,000 mls @ 999 mls/hr IV ASDIRECTED [facility] Last Admin: 04/26/19 15:01 Dose: 500 mls/hr Sodium Chloride (Normal Saline) 1,000 mls @ 999 mls/hr IV ASDIRECTED [facility] Last Admin: 04/26/19 13:13 Dose: 999 mls/hr Famotidine 20 mg/ Premix 50 mls @ 200 mls/hr IV ONETIME ONE Stop: 04/26/19 15:40 Last Admin: 04/26/19 16:20 Dose: 200 mls/hr Sodium Chloride (Normal Saline) 1,000 mls @ 70 mls/hr IV ASDIRECTED [facility] Last Admin: 04/28/19 00:41 Dose: 150 mls/hr Potassium Chloride 20 meq/ (Premix) 100 mls @ 50 mls/hr IV Q2H [facility] Stop: 04/28/19 17:59 Last Admin: 04/28/19 18:33 Dose: Not Given Lorazepam (Ativan) 2 mg IVPUSH ONETIME ONE Stop: 04/26/19 11:58 Last Admin: 04/26/19 12:08 Dose: 2 mg Lorazepam (Ativan) 1 - 3 mg IVPUSH Q4H PRN; Protocol PRN Reason: Withdrawal Symptoms Last Admin: 04/28/19 12:37 Dose: 1 mg Lorazepam (Ativan) 1 - 3 mg IVPUSH Q2H PRN; Protocol PRN Reason: Withdrawal Symptoms Last Admin: 04/29/19 12:57 Dose: 1 mg Lorazepam (Ativan) 2 mg PO Q2H PRN; Protocol PRN Reason: Withdrawal Symptoms Last Admin: 04/30/19 23:55 Dose: 2 mg Morphine Sulfate (Morphine) 1 mg IVPUSH Q1H PRN PRN Reason: Pain Last Admin: 05/01/19 03:07 Dose: 1 mg Pantoprazole Sodium (Protonix Iv) 40 mg IVPUSH DAILY [facility] Last Admin: 04/30/19 09:08 Dose: 40 mg Polyethylene Glycol (Miralax) 17 gm PO DAILY [facility] Potassium Chloride (Klor-Con M20) 20 meq PO DAILY [facility] Last Admin: 04/28/19 08:16 Dose: 20 meq Potassium Chloride (Potassium Chloride) 50 meq IV ONETIME ONE Stop: 04/28/19 09:16 Potassium Chloride (Klor-Con M20) 20 meq PO TID [facility] Last Admin: 04/29/19 20:04 Dose: 20 meq Thiamine HCl (Vitamin B-1) 100 mg IV DAILY [facility] Last Admin: 05/01/19 09:54 Dose: Not Given - Exam General: Alert HEENT: Pupils Equal Neck: Supple Lungs: Clear to Auscultation Cardiovascular: Regular Rate - Problem List & Annotations (1) Chronic abdominal pain SNOMED Code(s): 041001133 Code(s): R10.9 - UNSPECIFIED ABDOMINAL PAIN; G89.29 - OTHER CHRONIC PAIN Status: Acute Current Visit: Yes (2) Alcohol withdrawal SNOMED Code(s): 165819631 Code(s): F10.239 - ALCOHOL DEPENDENCE WITH WITHDRAWAL, UNSPECIFIED Status: Acute Current Visit: Yes Qualifiers: Complication of substance-induced condition: with unspecified complication Qualified Code(s): F10.239 - Alcohol dependence with withdrawal, unspecified (3) H/O ETOH abuse SNOMED Code(s): 185430014 Code(s): Z87.898 - PERSONAL HISTORY OF OTHER SPECIFIED CONDITIONS Status: Acute Current Visit: No (4) MDD (major depressive disorder) SNOMED Code(s): 231723462 Code(s): F32.9 - MAJOR DEPRESSIVE DISORDER, SINGLE EPISODE, UNSPECIFIED Status: Acute Current Visit: No Qualifiers: Major depression recurrence: recurrent Active/Remission status: currently active (5) Ambulatory dysfunction SNOMED Code(s): 363799369 Code(s): R26.2 - DIFFICULTY IN WALKING, NOT ELSEWHERE CLASSIFIED Status: Acute Current Visit: Yes (6) Cyclic vomiting syndrome Status: Acute Current Visit: Yes - Problem List Review Problem List Initiated/Reviewed/Updated: Yes - My Orders Last 24 Hours: My Active Orders 05/07/19 08:28 Ondansetron [Zofran ODT] 4 mg PO ONETIME PRN - Plan Plan:: Continue current care.Add Zofran ODT. Awaiting disposition-in patient alcohol treatment
[2019-05-07] MEDS: DULoxetine 20 MG Cap PO SCH (09:34)
[2019-05-07] MEDS: ACAMPROSATE 333 MG PO SCH ×3 (09:34→22:24)
[2019-05-07] MEDS: Potassium Chloride 20 MEQ Tab.ER PO SCH ×2 (09:35→22:25)
[2019-05-07] MEDS: Multivitamin Tab PO SCH (09:35)
[2019-05-07] MEDS: Folic Acid 1 MG Tab PO SCH (09:35)
[2019-05-07] MEDS: Magnesium Oxide 400 MG Tab PO SCH (09:35)
[2019-05-07] MEDS: Sertraline 25 MG Tab PO SCH (09:36)
[2019-05-07] MEDS: Thiamine 100 MG Tab PO SCH (09:36)
[2019-05-07] MEDS: Enoxaparin 30 MG/0.3 ML Syringe SUBCUT SCH (09:37)
[2019-05-07] MEDS: traMADol 50 MG Tab PO PRN ×2 (11:15→22:42)
[2019-05-08] MEDS: Pantoprazole 40 MG Tab.CR PO SCH (05:39)
[2019-05-08] MEDS: ACAMPROSATE 333 MG PO SCH ×3 (08:34→21:26)
[2019-05-08] MEDS: DULoxetine 20 MG Cap PO SCH (08:35)
[2019-05-08] MEDS: Thiamine 100 MG Tab PO SCH (08:35)
[2019-05-08] MEDS: Magnesium Oxide 400 MG Tab PO SCH (08:36)
[2019-05-08] MEDS: Folic Acid 1 MG Tab PO SCH (08:36)
[2019-05-08] MEDS: Potassium Chloride 20 MEQ Tab.ER PO SCH ×2 (08:36→21:27)
[2019-05-08] MEDS: Sertraline 25 MG Tab PO SCH (08:37)
[2019-05-08] MEDS: Multivitamin Tab PO SCH (08:37)
[2019-05-08] MEDS: Enoxaparin 30 MG/0.3 ML Syringe SUBCUT SCH (08:38)
--- NOTE | 2019-05-08 08:41 | PCM.PN ---
- General Info Date of Service: 05/08/19 Subjective Update: Doing well. Vomiting better Functional Status: Reports: Tolerating Diet - Review of Systems General: Reports: No Symptoms HEENT: Reports: No Symptoms Pulmonary: Reports: No Symptoms Gastrointestinal: Reports: No Symptoms - Patient Data Vitals - Most Recent: Last Vital Signs Temp 98.3 F 05/08/19 00:00 Pulse 94 05/08/19 00:00 Resp 20 05/08/19 00:00 BP 136/74 05/08/19 00:00 Pulse Ox 94 L 05/08/19 00:00 Weight - Most Recent: 44.996 kg Med Orders - Current: Current Medications Acetaminophen (Tylenol Extra Strength) 500 mg PO Q4H PRN PRN Reason: Pain (Mild 1-3)/fever Last Admin: 05/05/19 08:18 Dose: 500 mg Duloxetine HCl (Cymbalta) 20 mg PO DAILY [facility] Last Admin: 05/08/19 08:35 Dose: 20 mg Enoxaparin Sodium (Lovenox) 30 mg SUBCUT Q24H [facility] Last Admin: 05/08/19 08:38 Dose: 30 mg Folic Acid (Folic Acid) 1 mg PO DAILY [facility] Last Admin: 05/08/19 08:36 Dose: 1 mg Sodium Chloride (Normal Saline) 1,000 mls @ 70 mls/hr IV ASDIRECTED [facility] Magnesium Oxide (Magnesium Oxide) 400 mg PO DAILY [facility] Last Admin: 05/08/19 08:36 Dose: 400 mg Multivitamins/Minerals/Vitamin C (Tab-A-Jocelin) 1 tab PO DAILY [facility] Last Admin: 05/08/19 08:37 Dose: 1 tab Acamprosate [Campral (] 333 Mg *Ptom) 666 mg PO TID [facility] Last Admin: 05/08/19 08:34 Dose: 666 mg Ondansetron HCl (Zofran Odt) 4 mg PO ONETIME PRN PRN Reason: Nausea Last Admin: 05/07/19 08:57 Dose: 4 mg Pantoprazole Sodium (Protonix) 40 mg PO 0600 [facility] Last Admin: 05/08/19 05:39 Dose: 40 mg Polyethylene Glycol (Miralax) 17 gm PO DAILY PRN PRN Reason: Constipation Last Admin: 05/04/19 09:42 Dose: 17 gm Potassium Chloride (Klor-Con M20) 20 meq PO BID [facility] Last Admin: 05/08/19 08:36 Dose: 20 meq Sertraline HCl (Zoloft) 75 mg PO DAILY [facility] Last Admin: 05/08/19 08:37 Dose: 75 mg Sodium Chloride (Saline Flush) 10 ml FLUSH ASDIRECTED PRN PRN Reason: Keep Vein Open Last Admin: 05/01/19 03:08 Dose: 10 ml Thiamine HCl (Vitamin B-1) 100 mg PO DAILY [facility] Last Admin: 05/08/19 08:35 Dose: 100 mg Tramadol HCl (Ultram) 100 mg PO Q8H PRN PRN Reason: Pain Last Admin: 05/07/19 22:42 Dose: 100 mg Discontinued Medications Sodium Chloride (Normal Saline) 1,000 mls @ 999 mls/hr IV ASDIRECTED [facility] Last Admin: 04/26/19 15:01 Dose: 500 mls/hr Sodium Chloride (Normal Saline) 1,000 mls @ 999 mls/hr IV ASDIRECTED [facility] Last Admin: 04/26/19 13:13 Dose: 999 mls/hr Famotidine 20 mg/ Premix 50 mls @ 200 mls/hr IV ONETIME ONE Stop: 04/26/19 15:40 Last Admin: 04/26/19 16:20 Dose: 200 mls/hr Sodium Chloride (Normal Saline) 1,000 mls @ 70 mls/hr IV ASDIRECTED [facility] Last Admin: 04/28/19 00:41 Dose: 150 mls/hr Potassium Chloride 20 meq/ (Premix) 100 mls @ 50 mls/hr IV Q2H [facility] Stop: 04/28/19 17:59 Last Admin: 04/28/19 18:33 Dose: Not Given Lorazepam (Ativan) 2 mg IVPUSH ONETIME ONE Stop: 04/26/19 11:58 Last Admin: 04/26/19 12:08 Dose: 2 mg Lorazepam (Ativan) 1 - 3 mg IVPUSH Q4H PRN; Protocol PRN Reason: Withdrawal Symptoms Last Admin: 04/28/19 12:37 Dose: 1 mg Lorazepam (Ativan) 1 - 3 mg IVPUSH Q2H PRN; Protocol PRN Reason: Withdrawal Symptoms Last Admin: 04/29/19 12:57 Dose: 1 mg Lorazepam (Ativan) 2 mg PO Q2H PRN; Protocol PRN Reason: Withdrawal Symptoms Last Admin: 04/30/19 23:55 Dose: 2 mg Morphine Sulfate (Morphine) 1 mg IVPUSH Q1H PRN PRN Reason: Pain Last Admin: 05/01/19 03:07 Dose: 1 mg Pantoprazole Sodium (Protonix Iv) 40 mg IVPUSH DAILY [facility] Last Admin: 04/30/19 09:08 Dose: 40 mg Polyethylene Glycol (Miralax) 17 gm PO DAILY [facility] Potassium Chloride (Klor-Con M20) 20 meq PO DAILY [facility] Last Admin: 04/28/19 08:16 Dose: 20 meq Potassium Chloride (Potassium Chloride) 50 meq IV ONETIME ONE Stop: 04/28/19 09:16 Potassium Chloride (Klor-Con M20) 20 meq PO TID [facility] Last Admin: 04/29/19 20:04 Dose: 20 meq Thiamine HCl (Vitamin B-1) 100 mg IV DAILY [facility] Last Admin: 05/01/19 09:54 Dose: Not Given - Exam General: Alert HEENT: Pupils Equal Neck: Supple Cardiovascular: Regular Rate Neurological: No New Focal Deficit Psy/Mental Status: Alert, Normal Affect - Problem List & Annotations (1) Chronic abdominal pain SNOMED Code(s): 341999215 Code(s): R10.9 - UNSPECIFIED ABDOMINAL PAIN; G89.29 - OTHER CHRONIC PAIN Status: Acute Current Visit: Yes (2) Alcohol withdrawal SNOMED Code(s): 340769371 Code(s): F10.239 - ALCOHOL DEPENDENCE WITH WITHDRAWAL, UNSPECIFIED Status: Acute Current Visit: Yes Qualifiers: Complication of substance-induced condition: with unspecified complication Qualified Code(s): F10.239 - Alcohol dependence with withdrawal, unspecified (3) H/O ETOH abuse SNOMED Code(s): 822379818 Code(s): Z87.898 - PERSONAL HISTORY OF OTHER SPECIFIED CONDITIONS Status: Acute Current Visit: No (4) MDD (major depressive disorder) SNOMED Code(s): 149078499 Code(s): F32.9 - MAJOR DEPRESSIVE DISORDER, SINGLE EPISODE, UNSPECIFIED Status: Acute Current Visit: No Qualifiers: Major depression recurrence: recurrent Active/Remission status: currently active (5) Ambulatory dysfunction SNOMED Code(s): 378044151 Code(s): R26.2 - DIFFICULTY IN WALKING, NOT ELSEWHERE CLASSIFIED Status: Acute Current Visit: Yes (6) Cyclic vomiting syndrome Status: Acute Current Visit: Yes - Problem List Review Problem List Initiated/Reviewed/Updated: Yes - My Orders Last 24 Hours: My Active Orders 05/07/19 08:28 Ondansetron [Zofran ODT] 4 mg PO ONETIME PRN - Plan Plan:: Continue current care.Add Zofran ODT. Awaiting disposition-in patient alcohol treatment
[2019-05-08] MEDS: traMADol 50 MG Tab PO PRN ×2 (12:02→21:27)
[2019-05-09] MEDS: Pantoprazole 40 MG Tab.CR PO SCH (06:11)
[2019-05-09] MEDS: Polyethylene Glycol 3350 Powder 17 GM Packet PO PRN (08:10)
[2019-05-09] MEDS: Acetaminophen 500 MG Tab PO PRN (08:10)
[2019-05-09] MEDS: Thiamine 100 MG Tab PO SCH (08:10)
[2019-05-09] MEDS: Multivitamin Tab PO SCH (08:10)
[2019-05-09] MEDS: Potassium Chloride 20 MEQ Tab.ER PO SCH (08:10)
[2019-05-09] MEDS: Magnesium Oxide 400 MG Tab PO SCH (08:11)
[2019-05-09] MEDS: Folic Acid 1 MG Tab PO SCH (08:11)
[2019-05-09] MEDS: Sertraline 25 MG Tab PO SCH (08:11)
[2019-05-09] MEDS: DULoxetine 20 MG Cap PO SCH (08:11)
[2019-05-09] MEDS: ACAMPROSATE 333 MG PO SCH ×2 (08:12→13:28)
--- NOTE | 2019-05-09 08:46 | PCM.PN ---
- General Info Date of Service: 05/09/19 Subjective Update: Wishes to go home Functional Status: Reports: Pain Controlled, Tolerating Diet - Review of Systems General: Reports: No Symptoms HEENT: Reports: No Symptoms Pulmonary: Reports: No Symptoms Cardiovascular: Reports: No Symptoms - Patient Data Vitals - Most Recent: Last Vital Signs Temp 98.0 F 05/09/19 04:00 Pulse 97 05/09/19 04:00 Resp 21 H 05/09/19 04:00 BP 135/69 05/09/19 04:00 Pulse Ox 97 05/09/19 04:00 Weight - Most Recent: 44.996 kg Med Orders - Current: Current Medications Acetaminophen (Tylenol Extra Strength) 500 mg PO Q4H PRN PRN Reason: Pain (Mild 1-3)/fever Last Admin: 05/09/19 08:10 Dose: 500 mg Duloxetine HCl (Cymbalta) 20 mg PO DAILY [facility] Last Admin: 05/09/19 08:11 Dose: 20 mg Enoxaparin Sodium (Lovenox) 30 mg SUBCUT Q24H [facility] Last Admin: 05/08/19 08:38 Dose: 30 mg Folic Acid (Folic Acid) 1 mg PO DAILY [facility] Last Admin: 05/09/19 08:11 Dose: 1 mg Sodium Chloride (Normal Saline) 1,000 mls @ 70 mls/hr IV ASDIRECTED [facility] Magnesium Oxide (Magnesium Oxide) 400 mg PO DAILY [facility] Last Admin: 05/09/19 08:11 Dose: 400 mg Multivitamins/Minerals/Vitamin C (Tab-A-Jocelin) 1 tab PO DAILY [facility] Last Admin: 05/09/19 08:10 Dose: 1 tab Acamprosate [Campral (] 333 Mg *Ptom) 666 mg PO TID [facility] Last Admin: 05/09/19 08:12 Dose: 666 mg Ondansetron HCl (Zofran Odt) 4 mg PO ONETIME PRN PRN Reason: Nausea Last Admin: 05/07/19 08:57 Dose: 4 mg Pantoprazole Sodium (Protonix) 40 mg PO 0600 [facility] Last Admin: 05/09/19 06:11 Dose: 40 mg Polyethylene Glycol (Miralax) 17 gm PO DAILY PRN PRN Reason: Constipation Last Admin: 05/09/19 08:10 Dose: 17 gm Potassium Chloride (Klor-Con M20) 20 meq PO BID [facility] Last Admin: 05/09/19 08:10 Dose: 20 meq Sertraline HCl (Zoloft) 75 mg PO DAILY [facility] Last Admin: 05/09/19 08:11 Dose: 75 mg Sodium Chloride (Saline Flush) 10 ml FLUSH ASDIRECTED PRN PRN Reason: Keep Vein Open Last Admin: 05/01/19 03:08 Dose: 10 ml Thiamine HCl (Vitamin B-1) 100 mg PO DAILY [facility] Last Admin: 05/09/19 08:10 Dose: 100 mg Tramadol HCl (Ultram) 100 mg PO Q8H PRN PRN Reason: Pain Last Admin: 05/08/19 21:27 Dose: 100 mg Discontinued Medications Sodium Chloride (Normal Saline) 1,000 mls @ 999 mls/hr IV ASDIRECTED [facility] Last Admin: 04/26/19 15:01 Dose: 500 mls/hr Sodium Chloride (Normal Saline) 1,000 mls @ 999 mls/hr IV ASDIRECTED [facility] Last Admin: 04/26/19 13:13 Dose: 999 mls/hr Famotidine 20 mg/ Premix 50 mls @ 200 mls/hr IV ONETIME ONE Stop: 04/26/19 15:40 Last Admin: 04/26/19 16:20 Dose: 200 mls/hr Sodium Chloride (Normal Saline) 1,000 mls @ 70 mls/hr IV ASDIRECTED [facility] Last Admin: 04/28/19 00:41 Dose: 150 mls/hr Potassium Chloride 20 meq/ (Premix) 100 mls @ 50 mls/hr IV Q2H [facility] Stop: 04/28/19 17:59 Last Admin: 04/28/19 18:33 Dose: Not Given Lorazepam (Ativan) 2 mg IVPUSH ONETIME ONE Stop: 04/26/19 11:58 Last Admin: 04/26/19 12:08 Dose: 2 mg Lorazepam (Ativan) 1 - 3 mg IVPUSH Q4H PRN; Protocol PRN Reason: Withdrawal Symptoms Last Admin: 04/28/19 12:37 Dose: 1 mg Lorazepam (Ativan) 1 - 3 mg IVPUSH Q2H PRN; Protocol PRN Reason: Withdrawal Symptoms Last Admin: 04/29/19 12:57 Dose: 1 mg Lorazepam (Ativan) 2 mg PO Q2H PRN; Protocol PRN Reason: Withdrawal Symptoms Last Admin: 04/30/19 23:55 Dose: 2 mg Morphine Sulfate (Morphine) 1 mg IVPUSH Q1H PRN PRN Reason: Pain Last Admin: 05/01/19 03:07 Dose: 1 mg Pantoprazole Sodium (Protonix Iv) 40 mg IVPUSH DAILY [facility] Last Admin: 04/30/19 09:08 Dose: 40 mg Polyethylene Glycol (Miralax) 17 gm PO DAILY [facility] Potassium Chloride (Klor-Con M20) 20 meq PO DAILY [facility] Last Admin: 04/28/19 08:16 Dose: 20 meq Potassium Chloride (Potassium Chloride) 50 meq IV ONETIME ONE Stop: 04/28/19 09:16 Potassium Chloride (Klor-Con M20) 20 meq PO TID [facility] Last Admin: 04/29/19 20:04 Dose: 20 meq Thiamine HCl (Vitamin B-1) 100 mg IV DAILY [facility] Last Admin: 05/01/19 09:54 Dose: Not Given - Exam General: Alert, Oriented, Cooperative HEENT: Pupils Equal Psy/Mental Status: Alert, Normal Affect, Normal Mood - Problem List & Annotations (1) Chronic abdominal pain SNOMED Code(s): 711412196 Code(s): R10.9 - UNSPECIFIED ABDOMINAL PAIN; G89.29 - OTHER CHRONIC PAIN Status: Acute Current Visit: Yes (2) Alcohol withdrawal SNOMED Code(s): 897027865 Code(s): F10.239 - ALCOHOL DEPENDENCE WITH WITHDRAWAL, UNSPECIFIED Status: Acute Current Visit: Yes Qualifiers: Complication of substance-induced condition: with unspecified complication Qualified Code(s): F10.239 - Alcohol dependence with withdrawal, unspecified (3) H/O ETOH abuse SNOMED Code(s): 019475567 Code(s): Z87.898 - PERSONAL HISTORY OF OTHER SPECIFIED CONDITIONS Status: Acute Current Visit: No (4) MDD (major depressive disorder) SNOMED Code(s): 922064269 Code(s): F32.9 - MAJOR DEPRESSIVE DISORDER, SINGLE EPISODE, UNSPECIFIED Status: Acute Current Visit: No Qualifiers: Major depression recurrence: recurrent Active/Remission status: currently active (5) Ambulatory dysfunction SNOMED Code(s): 600052995 Code(s): R26.2 - DIFFICULTY IN WALKING, NOT ELSEWHERE CLASSIFIED Status: Acute Current Visit: Yes (6) Cyclic vomiting syndrome Status: Acute Current Visit: Yes - Problem List Review Problem List Initiated/Reviewed/Updated: Yes - Plan Plan:: [facility] couldn't take her for another two weeks.patient expresses interest to go home, as she awaits a call from them to arrange inpatient alcohol treatment. I will discharge her home today
[2019-05-09 09:39] VITALS: BP 129/58; PULSE 83
[2019-05-09] MEDS: Enoxaparin 30 MG/0.3 ML Syringe SUBCUT SCH (10:05)
--- NOTE | 2019-05-10 07:58 | DISCH ---
DISCHARGE DATE: 05/09/2019 REASON FOR ADMISSION: Alcohol withdrawal syndrome. DISCHARGE DIAGNOSES: 1. Alcohol withdrawal syndrome. 2. Cyclic vomiting. 3. History of alcohol abuse. 4. Depression. BRIEF HISTORY AND HOSPITAL COURSE: This 63-year-old female, who is known to be an alcoholic, was admitted because of withdrawal symptoms. She was found to be dehydrated and had acute kidney injury. She was treated successfully and electrolytes were corrected. She was started on Zoloft for depression, and cyclic vomiting improved significantly over the next few days. An attempt to have her go to an assisted living failed, as did an attempt to have her go to an inpatient treating facility. Eventually, on the , today, we discharged her home. Waiting for call from [facility] for inpatient treatment. She will go home in the meantime. DISCHARGE MEDICATIONS: 1. Zofran 4 mg t.i.d. p.r.n. 2. Folic acid 1 mg a day. 3. Thiamine 100 mg a day. 4. One multivitamin a day. 5. Aspirin 81 mg a day. 6. She will also go home on acamprosate 666 mg t.i.d. FOLLOWUP: She will see me in a week as we wait for placement for treatment. I spent more than 35 minutes in the discharge of the patient. /[id number] RAQUEL/ROMARIO
== END 2019-05-09 14:20 | disposition home or self-care (01) | DRG 897 ==
LOC: FB.ED 11:38 → FB.MS 16:36 → FB.ICU 04-27 08:58 → FB.MS 04-30 09:20
PROVIDERS: ADMIT Family Medicine; ATTEND Family Medicine
PROC: 02HV33Z Insertion of Infusion Device into Superior Vena Cava, Percutaneous Approach (ICD-10-PCS; principal; 2019-04-28)
PROC: HZ2ZZZZ Detoxification Services for Substance Abuse Treatment (ICD-10-PCS; 2019-04-28)
DX: K29.70 Gastritis, unspecified, without bleeding (principal); F10.239 Alcohol dependence with withdrawal, unspecified; N17.9 Acute kidney failure, unspecified; R00.0 Tachycardia, unspecified; E87.3 Alkalosis; E87.2 Acidosis; D72.829 Elevated white blood cell count, unspecified; R19.7 Diarrhea, unspecified; K86.1 Other chronic pancreatitis; G43.A0 Cyclical vomiting, in migraine, not intractable; F32.9 Major depressive disorder, single episode, unspecified; H54.7 Unspecified visual loss; Z72.0 Tobacco use; I10 Essential (primary) hypertension; K21.9 Gastro-esophageal reflux disease without esophagitis; E87.6 Hypokalemia; E83.42 Hypomagnesemia; M19.90 Unspecified osteoarthritis, unspecified site; M81.0 Age-related osteoporosis without current pathological fracture; F41.9 Anxiety disorder, unspecified; R74.8 Abnormal levels of other serum enzymes; E86.0 Dehydration; G89.29 Other chronic pain; R10.9 Unspecified abdominal pain; R26.2 Difficulty in walking, not elsewhere classified; R41.89 Other symptoms and signs involving cognitive functions and awareness; Z88.2 Allergy status to sulfonamides; Z79.899 Other long term (current) drug therapy; Z79.82 Long term (current) use of aspirin; Z87.01 Personal history of pneumonia (recurrent)
CPT/HCPCS: 36415; 80053; 82150; 82803 ×2; 83605 ×2; 83735; 84484; 85025; 85610; 86140; 93005; 96361; 96374; 96375; 96376; 99285 ×2; C9113; G0480; J2060 ×2; J3411; J7030 ×3; 80048; 83690; 84100; 85027; 94760; 97165-GO; A9270-GY; J1650; J2270; J3480

== ENCOUNTER 2019-05-29 18:02 | Emergency (ER) | payer MEDICARE, OTHER ==
[2019-05-29 18:21] VITALS: BP 115/76; PULSE 121
== END 2019-05-29 18:45 | disposition home or self-care (01) ==
LOC: FB.ED 18:02
DX: Z53.21 Procedure and treatment not carried out due to patient leaving prior to being seen by health care provider (principal)
CPT/HCPCS: 99283

== ENCOUNTER 2019-12-20 00:18 | Inpatient (IN) | payer MEDICARE, OTHER ==
[2019-12-20] MEDS ORDERED: Ondansetron 4 MG Tab.DIS PO ONE (00:57)
[2019-12-20] MEDS ORDERED: Dextrose 5%-0.9% NaCl 1,000 ML IV SCH (01:00)
[2019-12-20] MEDS ORDERED: Thiamine 100 MG in Sodium Chloride 0.9% 100 ML IV ONE (01:03)
[2019-12-20] MEDS ORDERED: hydrOXYzine HCl 50 MG/ML SDV IM ONE (01:45)
--- NOTE | 2019-12-20 02:24 | EDM.PDOC ---
ED HPI GENERAL MEDICAL PROBLEM - General Chief Complaint: Gastrointestinal Problem Stated Complaint: persistent N/V Time Seen by Provider: 12/20/19 01:30 Source of Information: Reports: Patient History Limitations: Reports: No Limitations - History of Present Illness INITIAL COMMENTS - FREE TEXT/NARRATIVE: Patient presented to the ED because of alcohol intoxication. She has been drinking for 2 days followed by persistent N/V and couldn't keep anything down. There is no abdominal pain, changes in bowel movements or urinary symptoms. she however have a non-productive cough x 2-3 days without any fever or chills and denies any dyspnea. - Related Data Allergies Allergy/AdvReac Type Severity Reaction Status Date / Time Sulfa (Sulfonamide Allergy Rash Verified 03/29/19 17:04 Antibiotics) Home Meds: Home Meds Calcium Carbonate/Vitamin D3 [Calcium 600 + Vit D 400 Softgl] 1 tab PO Q48H [History] Multivitamin [Multi-Vitamin Daily] 1 tab PO DAILY 10/09/13 [History] Aspirin 81 mg PO BID 07/26/18 [History] Acamprosate [Campral] 666 mg PO TID 11/30/18 [History] Spironolactone [Aldactone] 25 mg PO DAILY 03/17/19 [History] Folic Acid 1 mg PO DAILY 05/03/19 [History] Pantoprazole Sodium [Protonix] 40 mg PO QAM 05/03/19 [History] Ondansetron [Zofran ODT] 4 mg PO ONETIME PRN #15 tab.dis 05/09/19 [Rx] Sertraline [Zoloft] 75 mg PO DAILY #90 tablet 05/09/19 [Rx] Thiamine [Vitamin B-1] 100 mg PO DAILY #30 tablet 05/09/19 [Rx] Past Medical History HEENT History: Reports: Cataract, Impaired Vision Cardiovascular History: Reports: Hypertension, Other (See Below) Other Cardiovascular History: states has irregular HR at times Respiratory History: Reports: Bronchitis, Recurrent, Pneumonia, Recurrent, Other (See Below) Other Respiratory History: TOBACCO ABUSE Gastrointestinal History: Reports: GERD, Pancreatitis, PUD Other Gastrointestinal History: "prolapsed colon" Genitourinary History: Reports: Urinary Incontinence Musculoskeletal History: Reports: Arthritis, Osteoporosis, Other (See Below) Other Musculoskeletal History: MOVEMENT DISORDER, ATAXIA Neurological History: Reports: Other (See Below) Other Neuro History: DT's, MOVEMENT DISORDER Psychiatric History: Reports: Addiction, Anxiety, Depression, Hallucinations, Other (See Below) Other Psychiatric History: drug and alcohol addiction Endocrine/Metabolic History: Reports: Osteoporosis Hematologic History: Reports: Anemia, Blood Transfusion(s), Other (See Below) Other Hematologic History: leukopenia, THROMBOCYTOPENIA. Pt. here for a blood transfusion and low hemoglobin Immunologic History: Reports: None Oncologic (Cancer) History: Reports: None Dermatologic History: Reports: None - Infectious Disease History Infectious Disease History: Reports: Chicken Pox, Measles, Mumps - Past Surgical History Head Surgeries/Procedures: Reports: None HEENT Surgical History: Reports: None Cardiovascular Surgical History: Reports: None Respiratory Surgical History: Reports: None GI Surgical History: Reports: Colonoscopy, EGD, Other (See Below) Other GI Surgeries/Procedures: HX OF FEEDING TUBE - HAS BEEN REMOVED. Female Surgical History: Reports: None Endocrine Surgical History: Reports: None Neurological Surgical History: Reports: None Musculoskeletal Surgical History: Reports: Other (See Below) Other Musculoskeletal Surgeries/Procedures:: TOE SURGERY Oncologic Surgical History: Reports: None Dermatological Surgical History: Reports: None Social & Family History - Family History Family Medical History: Noncontributory - Caffeine Use Caffeine Use: Reports: Coffee Other Caffeine Use: 2-3 CUPS DAILY - Living Situation & Occupation Living situation: Reports: Alone Occupation: Disabled ED ROS GENERAL - Review of Systems Review Of Systems: See Below Constitutional: Reports: No Symptoms HEENT: Reports: No Symptoms Respiratory: Reports: Cough. Denies: Sputum Cardiovascular: Reports: No Symptoms Endocrine: Reports: No Symptoms GI/Abdominal: Reports: Bloody Stool, Nausea, Vomiting. Denies: Abdominal Pain : Reports: No Symptoms Musculoskeletal: Reports: No Symptoms Skin: Reports: No Symptoms ED EXAM, GI/ABD - Physical Exam Exam: See Below Exam Limited By: No Limitations General Appearance: Alert, No Apparent Distress Ears: Normal External Exam Nose: Normal Inspection, Normal Mucosa Throat/Mouth: Normal Inspection, Normal Lips, Normal Teeth Head: Atraumatic, Normocephalic Respiratory/Chest: No Respiratory Distress, Lungs Clear, Normal Breath Sounds Cardiovascular: Normal Peripheral Pulses, Regular Rate, Rhythm, No Edema GI/Abdominal Exam: Normal Bowel Sounds, Soft, Non-Tender, No Organomegaly Back Exam: Normal Inspection, Full Range of Motion Extremities: Normal Inspection, Normal Range of Motion Neurological: Alert, Oriented, CN II-XII Intact, Normal Cognition, Normal Gait, Normal Reflexes, No Motor/Sensory Deficits Psychiatric: Normal Affect Skin Exam: Warm, Intact Course - Vital Signs Text/Narrative:: labs/EKG/CXR was discussed with the patient and verbalized understanding D5.9NS 1 L bolus zofran ODT 8 mg Vistaril 50 mg IM Thiamine 100 mg IV x1 CXR-neg elevated wbc most likely from bodily stress and hemoconcentration - Orders/Labs/Meds Orders: Active Orders 24 hr Category Date Time Status CIWAA Assessment [RC] Q4H Care 12/20/19 02:35 Ordered EKG Documentation Completion [RC] ASDIRECTED Care 12/20/19 01:28 Active Notify Provider [RC] PRN Care 12/20/19 02:36 Ordered Pulse Oximetry [RC] CONTINUOUS Care 12/20/19 02:36 Ordered Chest 1V Frontal [CR] Stat Exams 12/20/19 01:51 Taken CBC WITH AUTO DIFF [HEME] Routine Lab 12/20/19 06:00 Ordered COMPREHENSIVE METABOLIC PN,CMP [CHEM] Routine Lab 12/20/19 06:00 Ordered DRUG SCREEN, URINE ALERE [URCHEM] Stat Lab 12/20/19 00:57 Ordered MAGNESIUM [CHEM] Routine Lab 12/20/19 06:00 Ordered PHOSPHORUS [CHEM] Routine Lab 12/20/19 06:00 Ordered UA W/MICROSCOPIC [URIN] Stat Lab 12/20/19 01:51 Ordered Acamprosate [Campral] Med 12/20/19 09:00 Ordered 666 mg PO TID Calcium Carbonate/Vitamin D3 [Calcium 600 + Vit D 400 Med 12/20/19 02:45 Ordered Softgl] 1 tab PO Q48H Dextrose 5%-0.9% NaCl [Dextrose 5%-Normal Saline] 1,000 Med 12/20/19 01:00 Active ml IV ASDIRECTED Folic Acid Med 12/20/19 09:00 Ordered 1 mg PO DAILY LORazepam [Ativan] Med 12/20/19 02:45 Ordered See Protocol PO ASDIRECTED Multivitamins [Tab-A-Jocelin] Med 12/20/19 09:00 Ordered 1 tab PO DAILY Ondansetron [Zofran] Med 05/06/20 02:48 Ordered 4 mg IVPUSH Q4H PRN Pantoprazole [ProTONIX IV] Med 12/20/19 09:00 Ordered 40 mg IV DAILY Sertraline [Zoloft] Med 12/20/19 09:00 Ordered 75 mg PO DAILY Sodium Chloride 0.9% [Normal Saline] 1,000 ml Med 12/20/19 03:00 Ordered IV ASDIRECTED Thiamine [Vitamin B-1] Med 12/20/19 09:00 Ordered 100 mg PO DAILY hydrOXYzine HCL [Vistaril] Med 12/20/19 02:50 Ordered 50 mg IM Q6H PRN EKG 12 Lead [EK] Routine Ther 12/20/19 01:27 Ordered Medication Orders Folic Acid (Folic Acid) 1 mg PO DAILY [facility] Hydroxyzine HCl (Vistaril) 50 mg IM Q6H PRN PRN Reason: nausea/anxiety Dextrose/Sodium Chloride (Dextrose 5%-Normal Saline) 1,000 mls @ 1,000 mls/hr IV ASDIRECTED [facility] Last Admin: 12/20/19 01:20 Dose: 1,000 mls/hr Sodium Chloride (Normal Saline) 1,000 mls @ 150 mls/hr IV ASDIRECTED [facility] Lorazepam (Ativan) 0 mg PO ASDIRECTED [facility]; Protocol Multivitamins/Minerals/Vitamin C (Tab-A-Jocelin) 1 tab PO DAILY [facility] Non-Formulary Medication (Acamprosate [Campral]) 666 mg PO TID [facility] Non-Formulary Medication (Calcium Carbonate/Vitamin D3 [Calcium 600 + Vit D 400 Softgl]) 1 tab PO Q48H [facility] Ondansetron HCl (Zofran) 4 mg IVPUSH Q4H PRN PRN Reason: Nausea/Vomiting Pantoprazole Sodium (Protonix Iv) 40 mg IV DAILY [facility] Sertraline HCl (Zoloft) 75 mg PO DAILY [facility] Thiamine HCl (Vitamin B-1) 100 mg PO DAILY [facility] Labs: Laboratory Tests 12/20/19 12/20/19 12/20/19 Range/Units 00:30 00:30 00:30 WBC 18.8 H (4.5-12.0) X10-3/uL RBC 3.94 (3.23-5.20) x10(6)uL Hgb 10.7 L (11.5-15.5) g/dL Hct 33.0 (30.0-51.3) % MCV 85.2 (80-96) fL MCH 25.8 L (27.7-33.6) pg MCHC 30.2 L (32.2-35.4) g/dL RDW 21.3 H (11.5-15.5) % Plt Count 584 H (125-369) X10(3)uL MPV 7.5 (7.4-10.4) fL Add Manual Diff Yes Neutrophils % (Manual) 71 (46-82) % Band Neutrophils % 4 (0-6) % Lymphocytes % (Manual) 11 L (13-37) % Monocytes % (Manual) 14 H (4-12) % Sodium 140 (135-145) mmol/L Potassium 4.1 (3.5-5.3) mmol/L Chloride 94 L D (100-110) mmol/L Carbon Dioxide 7 L* (21-32) mmol/L BUN 26 H (7-18) mg/dL Creatinine 1.8 H (0.55-1.02) mg/dL Est Cr Clr Drug Dosing TNP Estimated GFR (MDRD) 28 L (>60) BUN/Creatinine Ratio 14.4 (9-20) Glucose 180 H D (80-116) mg/dL Calcium 8.6 (8.6-10.2) mg/dL Total Bilirubin 0.3 (0.1-1.3) mg/dL AST 54 H D (5-25) IU/L ALT 19 D (12-36) U/L Alkaline Phosphatase 126 H (56-112) IU/L Troponin I (4.0-60.3) pg/mL Total Protein 8.6 H (6.0-8.0) g/dL Albumin 4.2 (3.2-4.6) g/dL Globulin 4.4 g/dL Albumin/Globulin Ratio 1.0 Amylase 159 H (25-115) U/L Lipase 279 (73-393) U/L Ethyl Alcohol 0.13 H (<0.03) % 12/20/19 Range/Units 00:30 WBC (4.5-12.0) X10-3/uL RBC (3.23-5.20) x10(6)uL Hgb (11.5-15.5) g/dL Hct (30.0-51.3) % MCV (80-96) fL MCH (27.7-33.6) pg MCHC (32.2-35.4) g/dL RDW (11.5-15.5) % Plt Count (125-369) X10(3)uL MPV (7.4-10.4) fL Add Manual Diff Neutrophils % (Manual) (46-82) % Band Neutrophils % (0-6) % Lymphocytes % (Manual) (13-37) % Monocytes % (Manual) (4-12) % Sodium (135-145) mmol/L Potassium (3.5-5.3) mmol/L Chloride (100-110) mmol/L Carbon Dioxide (21-32) mmol/L BUN (7-18) mg/dL Creatinine (0.55-1.02) mg/dL Est Cr Clr Drug Dosing Estimated GFR (MDRD) (>60) BUN/Creatinine Ratio (9-20) Glucose (80-116) mg/dL Calcium (8.6-10.2) mg/dL Total Bilirubin (0.1-1.3) mg/dL AST (5-25) IU/L ALT (12-36) U/L Alkaline Phosphatase (56-112) IU/L Troponin I 7.3 (4.0-60.3) pg/mL Total Protein (6.0-8.0) g/dL Albumin (3.2-4.6) g/dL Globulin g/dL Albumin/Globulin Ratio Amylase (25-115) U/L Lipase (73-393) U/L Ethyl Alcohol (<0.03) % Meds: Medications Generic Name Dose Route Start Last Admin Trade Name Freq PRN Reason Stop Dose Admin Folic Acid 1 mg 12/20/19 09:00 Folic Acid PO DAILY [facility] Hydroxyzine HCl 50 mg 12/20/19 02:50 Vistaril IM Q6H PRN nausea/anxiety Dextrose/Sodium Chloride 1,000 mls @ 1,000 mls/hr 12/20/19 01:00 12/20/19 01: 20 Dextrose 5%-Normal Saline IV 1,000 mls/hr ASDIRECTED [facility] Administration Sodium Chloride 1,000 mls @ 150 mls/hr 12/20/19 03:00 Normal Saline IV ASDIRECTED [facility] Lorazepam 0 mg 12/20/19 02:45 Ativan PO ASDIRECTED [facility] Protocol Multivitamins/Minerals/Vitamin C 1 tab 12/20/19 09:00 Tab-A-Jocelin PO DAILY [facility] Non-Formulary Medication 666 mg 12/20/19 09:00 Acamprosate [Campral] PO TID [facility] Non-Formulary Medication 1 tab 12/20/19 02:45 Calcium Carbonate/Vitamin D3 [Calcium 600 + Vit D 400 Softgl] PO Q48H [facility] Ondansetron HCl 4 mg 12/20/19 02:48 Zofran IVPUSH Q4H PRN Nausea/Vomiting Pantoprazole Sodium 40 mg 12/20/19 09:00 Protonix Iv IV DAILY [facility] Sertraline HCl 75 mg 12/20/19 09:00 Zoloft PO DAILY [facility] Thiamine HCl 100 mg 12/20/19 09:00 Vitamin B-1 PO DAILY [facility] Discontinued Medications Generic Name Dose Route Start Last Admin Trade Name Freq PRN Reason Stop Dose Admin Hydroxyzine HCl 50 mg 12/20/19 01:45 12/20/19 02:21 Vistaril IM 12/20/19 01:46 50 mg ONETIME ONE Administration Thiamine HCl 100 mg/ Sodium 101 mls @ 202 mls/hr 12/20/19 01:03 12/20/19 02: 03 Chloride IV 12/20/19 01:04 202 mls/hr ONETIME ONE Administration Ondansetron HCl 8 mg 12/20/19 00:57 12/20/19 01:10 Zofran Odt PO 12/20/19 00:58 8 mg ONETIME ONE Administration Departure - Departure Time of Disposition: 14:30 Disposition: Refer to Observation Condition: Good Clinical Impression: Alcohol abuse with intoxication, Dehydration, RAYMOND (acute kidney injury), Cyclical vomiting - Discharge Information Referrals: PCP,None [Primary Care Provider] - Forms: ED Department Discharge Sepsis Event Note - Focused Exam Date Exam was Performed: 12/20/19 Time Exam was Performed: 02:51 - My Orders Last 24 Hours: My Active Orders 12/20/19 00:57 DRUG SCREEN, URINE ALERE [URCHEM] Stat 12/20/19 01:00 Dextrose 5%-0.9% NaCl [Dextrose 5%-Normal Saline] 1,000 ml IV ASDIRECTED 12/20/19 01:27 EKG 12 Lead [EK] Routine 12/20/19 01:28 EKG Documentation Completion [RC] ASDIRECTED 12/20/19 01:51 Chest 1V Frontal [CR] Stat UA W/MICROSCOPIC [URIN] Stat 12/20/19 02:35 CIWAA Assessment [RC] Q4H 12/20/19 02:36 Notify Provider [RC] PRN Pulse Oximetry [RC] CONTINUOUS 12/20/19 02:45 Calcium Carbonate/Vitamin D3 [Calcium 600 + Vit D 400 Softgl] 1 tab PO Q48H LORazepam [Ativan] See Protocol PO ASDIRECTED 12/20/19 02:48 Ondansetron [Zofran] 4 mg IVPUSH Q4H PRN 12/20/19 02:50 hydrOXYzine HCL [Vistaril] 50 mg IM Q6H PRN 12/20/19 03:00 Sodium Chloride 0.9% [Normal Saline] 1,000 ml IV ASDIRECTED 12/20/19 06:00 CBC WITH AUTO DIFF [HEME] Routine COMPREHENSIVE METABOLIC PN,CMP [CHEM] Routine MAGNESIUM [CHEM] Routine PHOSPHORUS [CHEM] Routine 12/20/19 09:00 Acamprosate [Campral] 666 mg PO TID Folic Acid 1 mg PO DAILY Multivitamins [Tab-A-Jocelin] 1 tab PO DAILY Pantoprazole [ProTONIX IV] 40 mg IV DAILY Sertraline [Zoloft] 75 mg PO DAILY Thiamine [Vitamin B-1] 100 mg PO DAILY - Assessment/Plan Last 24 Hours: My Active Orders 12/20/19 00:57 DRUG SCREEN, URINE ALERE [URCHEM] Stat 12/20/19 01:00 Dextrose 5%-0.9% NaCl [Dextrose 5%-Normal Saline] 1,000 ml IV ASDIRECTED 12/20/19 01:27 EKG 12 Lead [EK] Routine 12/20/19 01:28 EKG Documentation Completion [RC] ASDIRECTED 12/20/19 01:51 Chest 1V Frontal [CR] Stat UA W/MICROSCOPIC [URIN] Stat 12/20/19 02:35 CIWAA Assessment [RC] Q4H 12/20/19 02:36 Notify Provider [RC] PRN Pulse Oximetry [RC] CONTINUOUS 12/20/19 02:45 Calcium Carbonate/Vitamin D3 [Calcium 600 + Vit D 400 Softgl] 1 tab PO Q48H LORazepam [Ativan] See Protocol PO ASDIRECTED 12/20/19 02:48 Ondansetron [Zofran] 4 mg IVPUSH Q4H PRN 12/20/19 02:50 hydrOXYzine HCL [Vistaril] 50 mg IM Q6H PRN 12/20/19 03:00 Sodium Chloride 0.9% [Normal Saline] 1,000 ml IV ASDIRECTED 12/20/19 06:00 CBC WITH AUTO DIFF [HEME] Routine COMPREHENSIVE METABOLIC PN,CMP [CHEM] Routine MAGNESIUM [CHEM] Routine PHOSPHORUS [CHEM] Routine 12/20/19 09:00 Acamprosate [Campral] 666 mg PO TID Folic Acid 1 mg PO DAILY Multivitamins [Tab-A-Jocelin] 1 tab PO DAILY Pantoprazole [ProTONIX IV] 40 mg IV DAILY Sertraline [Zoloft] 75 mg PO DAILY Thiamine [Vitamin B-1] 100 mg PO DAILY
[2019-12-20] MEDS ORDERED: Ondansetron 4 MG/2 ML SDV IVPUSH PRN (02:48)
[2019-12-20] MEDS ORDERED: hydrOXYzine HCl 50 MG/ML SDV IM PRN (02:50)
[2019-12-20] MEDS ORDERED: Enoxaparin 30 MG/0.3 ML Syringe SUBCUT SCH (03:15)
[2019-12-20] MEDS ORDERED: LORazepam 2 MG/ML SDV IVPUSH STA (03:20)
[2019-12-20] MEDS: Sodium Chloride 0.9% 1,000 ML IV SCH ×3 (03:40→16:00)
[2019-12-20] MEDS: Sodium Chloride 0.9% 10 ML Syringe FLUSH PRN ×4 (03:44→10:30)
[2019-12-20] MEDS ORDERED: Sertraline 25 MG Tab PO SCH (09:00)
[2019-12-20] MEDS ORDERED: ACAMPROSATE 666 MG PO SCH (09:00)
[2019-12-20] MEDS ORDERED: Morphine 4 MG/ML VIAL IVPUSH PRN (09:06)
[2019-12-20] MEDS ORDERED: Iopamidol 755 Mg/ML 100 ML Bottle IV ONE (09:08)
--- NOTE | 2019-12-20 09:14 | PCM.HP.2 ---
H&P History of Present Illness - General Date of Service: 12/20/19 Admit Problem/Dx: Admission Diagnosis/Problem Admission Diagnosis/Problem Alcohol intoxication Source of Information: Patient History Limitations: Reports: Altered Mental Status - History of Present Illness Initial Comments - Free Text/Narative: Zuleika is a 64-year-old female who came in because of intractable nausea & vomiting and epigastric pain. She is known to have alcohol dependence .She was last admitted in April. She has not had a drink for 2 days. She was tremulous and going through withdrawal symptoms upon arrival in the ER last night. Epigastric abdomen pain is till ongoing,and is severe ,with no diarrhea. She's not able to give much history. She has a history of depression, cyclic vomiting, central pontine myelinolysis. She lives alone. - Related Data Allergies/Adverse Reactions: Allergies Allergy/AdvReac Type Severity Reaction Status Date / Time Sulfa (Sulfonamide Allergy Rash Verified 12/20/19 03:47 Antibiotics) Home Medications: Home Meds Calcium Carbonate/Vitamin D3 [Calcium 600 + Vit D 400 Softgl] 1 tab PO Q48H [History] Multivitamin [Multi-Vitamin Daily] 1 tab PO DAILY 10/09/13 [History] Aspirin 81 mg PO BID 07/26/18 [History] Acamprosate [Campral] 666 mg PO TID 11/30/18 [History] Spironolactone [Aldactone] 25 mg PO DAILY 03/17/19 [History] Folic Acid 1 mg PO DAILY 05/03/19 [History] Pantoprazole Sodium [Protonix] 40 mg PO QAM 05/03/19 [History] Ondansetron [Zofran ODT] 4 mg PO ONETIME PRN #15 tab.dis 05/09/19 [Rx] Sertraline [Zoloft] 75 mg PO DAILY #90 tablet 05/09/19 [Rx] Thiamine [Vitamin B-1] 100 mg PO DAILY #30 tablet 05/09/19 [Rx] Past Medical History HEENT History: Reports: Cataract, Impaired Vision Cardiovascular History: Reports: Hypertension, Other (See Below) Other Cardiovascular History: states has irregular HR at times Respiratory History: Reports: Bronchitis, Recurrent, Pneumonia, Recurrent, Other (See Below) Other Respiratory History: TOBACCO ABUSE Gastrointestinal History: Reports: GERD, Pancreatitis, PUD Other Gastrointestinal History: "prolapsed colon" Genitourinary History: Reports: Urinary Incontinence Musculoskeletal History: Reports: Arthritis, Osteoporosis, Other (See Below) Other Musculoskeletal History: MOVEMENT DISORDER, ATAXIA Neurological History: Reports: Other (See Below) Other Neuro History: DT's, MOVEMENT DISORDER Psychiatric History: Reports: Addiction, Anxiety, Depression, Hallucinations, Other (See Below) Other Psychiatric History: drug and alcohol addiction Endocrine/Metabolic History: Reports: Osteoporosis Hematologic History: Reports: Anemia, Blood Transfusion(s), Other (See Below) Other Hematologic History: leukopenia, THROMBOCYTOPENIA. Pt. here for a blood transfusion and low hemoglobin Immunologic History: Reports: None Oncologic (Cancer) History: Reports: None Dermatologic History: Reports: None - Infectious Disease History Infectious Disease History: Reports: Chicken Pox, Measles, Mumps - Past Surgical History Head Surgeries/Procedures: Reports: None HEENT Surgical History: Reports: None Cardiovascular Surgical History: Reports: None Respiratory Surgical History: Reports: None GI Surgical History: Reports: Colonoscopy, EGD, Other (See Below) Other GI Surgeries/Procedures: HX OF FEEDING TUBE - HAS BEEN REMOVED. Female Surgical History: Reports: None Endocrine Surgical History: Reports: None Neurological Surgical History: Reports: None Musculoskeletal Surgical History: Reports: Other (See Below) Other Musculoskeletal Surgeries/Procedures:: TOE SURGERY Oncologic Surgical History: Reports: None Dermatological Surgical History: Reports: None Social & Family History - Family History Family Medical History: Noncontributory - Tobacco Use Smoking Status *Q: Current Every Day Smoker Years of Tobacco use: 40 Packs/Tins Daily: 1 Used Tobacco, but Quit: Yes Month/Year Tobacco Last Used: unknown - Caffeine Use Caffeine Use: Reports: Coffee Other Caffeine Use: 2-3 CUPS DAILY - Recreational Drug Use Recreational Drug Use: No - Living Situation & Occupation Living situation: Reports: Alone Occupation: Disabled H&P Review of Systems - Review of Systems: Review Of Systems: Comprehensive ROS is negative, except as noted in HPI. Exam - Exam Exam: See Below - Vital Signs Vital Signs: Last Vital Signs Temp 99.2 F 12/20/19 08:00 Pulse 122 H 12/20/19 08:00 Resp 20 12/20/19 08:00 BP 158/92 H 12/20/19 08:00 Pulse Ox 97 12/20/19 08:00 Weight: 43.148 kg - Exam General: Alert, Lethargic HEENT: PERRLA Neck: Supple Lungs: Clear to Auscultation Cardiovascular: Regular Rate GI/Abdominal Exam: No Abnormal Bruit, Rigid, Tender (Epigastrium and RUQ). No: Hepatomegaly (Female) Exam: Deferred Rectal (Female) Exam: Deferred Back Exam: Normal Inspection Extremities: Normal Inspection Skin: Warm, Dry Neurological: Cranial Nerves Intact. No: Normal Speech Neuro Extensive - Mental Status: Alert Neuro Extensive - Motor, Sensory, Reflexes: Dysarthria Psychiatric: Alert, Withdrawal Symptoms - Patient Data Lab Results Last 24 hrs: Laboratory Results - last 24 hr 12/20/19 12/20/19 12/20/19 Range/Units 00:30 00:30 00:30 WBC 18.8 H (4.5-12.0) X10-3/uL RBC 3.94 (3.23-5.20) x10(6)uL Hgb 10.7 L (11.5-15.5) g/dL Hct 33.0 (30.0-51.3) % MCV 85.2 (80-96) fL MCH 25.8 L (27.7-33.6) pg MCHC 30.2 L (32.2-35.4) g/dL RDW 21.3 H (11.5-15.5) % Plt Count 584 H (125-369) X10(3)uL MPV 7.5 (7.4-10.4) fL Add Manual Diff Yes Neutrophils % (Manual) 71 (46-82) % Band Neutrophils % 4 (0-6) % Lymphocytes % (Manual) 11 L (13-37) % Monocytes % (Manual) 14 H (4-12) % Anisocytosis Sodium 140 (135-145) mmol/L Potassium 4.1 (3.5-5.3) mmol/L Chloride 94 L D (100-110) mmol/L Carbon Dioxide 7 L* (21-32) mmol/L BUN 26 H (7-18) mg/dL Creatinine 1.8 H (0.55-1.02) mg/dL Est Cr Clr Drug Dosing TNP Estimated GFR (MDRD) 28 L (>60) BUN/Creatinine Ratio 14.4 (9-20) Glucose 180 H D (80-116) mg/dL Calcium 8.6 (8.6-10.2) mg/dL Phosphorus (2.6-4.6) mg/dL Magnesium (1.8-2.5) mg/dL Total Bilirubin 0.3 (0.1-1.3) mg/dL AST 54 H D (5-25) IU/L ALT 19 D (12-36) U/L Alkaline Phosphatase 126 H (56-112) IU/L Troponin I (4.0-60.3) pg/mL Total Protein 8.6 H (6.0-8.0) g/dL Albumin 4.2 (3.2-4.6) g/dL Globulin 4.4 g/dL Albumin/Globulin Ratio 1.0 Amylase 159 H (25-115) U/L Lipase 279 (73-393) U/L Ethyl Alcohol 0.13 H (<0.03) % 12/20/19 12/20/19 12/20/19 Range/Units 00:30 07:30 07:30 WBC 12.8 H (4.5-12.0) X10-3/uL RBC 3.15 L (3.23-5.20) x10(6)uL Hgb 8.2 L (11.5-15.5) g/dL Hct 25.6 L (30.0-51.3) % MCV 81.2 (80-96) fL MCH 25.9 L (27.7-33.6) pg MCHC 31.9 L (32.2-35.4) g/dL RDW 21.5 H (11.5-15.5) % Plt Count 362 (125-369) X10(3)uL MPV 6.7 L (7.4-10.4) fL Add Manual Diff Yes Neutrophils % (Manual) 84 H (46-82) % Band Neutrophils % (0-6) % Lymphocytes % (Manual) 8 L (13-37) % Monocytes % (Manual) 8 (4-12) % Anisocytosis Moderate H Sodium 138 (135-145) mmol/L Potassium 3.9 (3.5-5.3) mmol/L Chloride 101 D (100-110) mmol/L Carbon Dioxide 21 (21-32) mmol/L BUN 20 H (7-18) mg/dL Creatinine 1.1 H (0.55-1.02) mg/dL Est Cr Clr Drug Dosing 34.73 Estimated GFR (MDRD) 50 L (>60) BUN/Creatinine Ratio 18.2 (9-20) Glucose 201 H (80-116) mg/dL Calcium 7.5 L (8.6-10.2) mg/dL Phosphorus 1.7 L (2.6-4.6) mg/dL Magnesium 1.6 L (1.8-2.5) mg/dL Total Bilirubin 0.6 (0.1-1.3) mg/dL AST 45 H D (5-25) IU/L ALT 27 D (12-36) U/L Alkaline Phosphatase 105 (56-112) IU/L Troponin I 7.3 (4.0-60.3) pg/mL Total Protein 6.9 (6.0-8.0) g/dL Albumin 3.3 (3.2-4.6) g/dL Globulin 3.6 g/dL Albumin/Globulin Ratio 0.9 Amylase (25-115) U/L Lipase (73-393) U/L Ethyl Alcohol (<0.03) % Result Diagrams: 12/20/19 07:30 12/20/19 07:30 Sepsis Event Note - Evaluation Sepsis Screening Result: No Definite Risk - Focused Exam Vital Signs: Vital Signs Temp Temp Pulse Resp BP BP Pulse Ox 12/20/19 08:00 99.2 F 122 H 20 158/92 H 97 12/20/19 03:37 98.1 F 122 H 20 163/98 H 97 12/20/19 02:43 97.7 F 119 H 24 H 152/88 H 100 12/20/19 02:31 97.7 F 119 H 22 H 152/88 H 100 12/20/19 00:22 115 H 24 H 115/94 H 115 H Date Exam was Performed: 12/20/19 Time Exam was Performed: 09:09 - Problem List (1) Alcohol abuse with intoxication SNOMED Code(s): 67199273 ICD Code: F10.129 - ALCOHOL ABUSE WITH INTOXICATION, UNSPECIFIED Status: Acute Current Visit: Yes (2) Cyclic vomiting syndrome Status: Acute Current Visit: Yes (3) Dehydration SNOMED Code(s): 80632937 ICD Code: E86.0 - DEHYDRATION Status: Acute Current Visit: Yes (4) Alcohol withdrawal syndrome SNOMED Code(s): 498113586 ICD Code: F10.239 - ALCOHOL DEPENDENCE WITH WITHDRAWAL, UNSPECIFIED Status : Acute Current Visit: No (5) Dyskinesia SNOMED Code(s): 3081620 ICD Code: G24.9 - DYSTONIA, UNSPECIFIED Status: Acute Current Visit: No (6) MDD (major depressive disorder) SNOMED Code(s): 241222630 ICD Code: F32.9 - MAJOR DEPRESSIVE DISORDER, SINGLE EPISODE, UNSPECIFIED Status: Acute Current Visit: No Qualifiers: Major depression recurrence: recurrent Active/Remission status: currently active (7) Hypomagnesemia SNOMED Code(s): 230152714 ICD Code: E83.42 - HYPOMAGNESEMIA Status: Resolved Current Visit: No Problem Details: improving Problem List Initiated/Reviewed/Updated: Yes Orders Last 24hrs: Active Orders 24 hr Category Date Time Status Patient Status Manage Transfer [TRANSFER] Routine ADT 12/20/19 09:06 Ordered Patient Status [ADT] Routine ADT 12/20/19 03:11 Active Antiembolic Devices [RC] .Routine Care 12/20/19 03:13 Active CIWAA Assessment [RC] 08,12,16,20,00,04 Care 12/20/19 02:35 Active Intake and Output [RC] 06,14,22 Care 12/20/19 03:13 Active Notify Provider [RC] PRN Care 12/20/19 02:36 Active Oxygen Therapy [RC] PRN Care 12/20/19 03:14 Active Pulse Oximetry [RC] CONTINUOUS Care 12/20/19 02:36 Inactive Pulse Oximetry [RC] PRN Care 12/20/19 03:11 Active VTE/DVT Education [RC] Click to Edit Care 12/20/19 03:13 Active Vital Signs [RC] 08,12,16,20,00,04 Care 12/20/19 03:11 Active Abdomen Pelvis w Cont [CT] Routine Exams 12/20/19 09:04 Ordered Chest 1V Frontal [CR] Stat Exams 12/20/19 01:51 Taken AMYLASE [CHEM] AM Lab 12/21/19 05:11 Ordered CBC WITH AUTO DIFF [HEME] AM Lab 12/21/19 05:11 Ordered COMPREHENSIVE METABOLIC PN,CMP [CHEM] AM Lab 12/21/19 05:11 Ordered DRUG SCREEN, URINE ALERE [URCHEM] Stat Lab 12/20/19 00:57 Ordered UA W/MICROSCOPIC [URIN] Stat Lab 12/20/19 01:51 Ordered Acamprosate [Campral] Med 12/20/19 09:00 Pending 666 mg PO TID Calcium Carbonate [Tums] Med 12/20/19 09:00 Active 500 mg PO Q48H Dextrose 5%-0.9% NaCl [Dextrose 5%-Normal Saline] 1,000 Med 12/20/19 01:00 Active ml IV ASDIRECTED Enoxaparin [Lovenox] Med 12/21/19 08:00 Active 30 mg SUBCUT Q24H Folic Acid Med 12/20/19 09:00 Active 1 mg PO DAILY Iopamidol [Isovue-370 (76%)] Med 12/20/19 09:08 Once 100 ml IV . DIRECTED ONE LORazepam [Ativan] Med 12/20/19 02:45 Active See Protocol PO ASDIRECTED Morphine Sulfate [Morphine] Med 12/20/19 09:06 Ordered 4 mg IVPUSH Q4H PRN Multivitamins [Tab-A-Jocelin] Med 12/20/19 09:00 Active 1 tab PO DAILY Ondansetron [Zofran] Med 12/20/19 02:48 Active 4 mg IVPUSH Q4H PRN Pantoprazole [ProTONIX IV] Med 12/20/19 09:00 Active 40 mg IV DAILY Sertraline [Zoloft] Med 12/20/19 09:00 Active 75 mg PO DAILY Sodium Chloride 0.9% [Normal Saline] 1,000 ml Med 12/20/19 03:00 Active IV ASDIRECTED Sodium Chloride 0.9% [Saline Flush] Med 12/20/19 03:00 Active 10 ml FLUSH ASDIRECTED PRN Thiamine [Vitamin B-1] Med 12/20/19 09:00 Active 100 mg PO DAILY hydrOXYzine HCL [Vistaril] Med 12/20/19 02:50 Active 50 mg IM Q6H PRN DVT/VTE Prophylaxis Reflex [OM.PC] Per Unit Routine Oth 12/20/19 03:11 Ordered Resuscitation Status Routine Resus Stat 12/20/19 03:11 Ordered EKG 12 Lead [EK] Routine Ther 12/20/19 01:27 Ordered Medication Orders Calcium Carbonate/Glycine (Tums) 500 mg PO Q48H [facility] Enoxaparin Sodium (Lovenox) 30 mg SUBCUT Q24H [facility] Folic Acid (Folic Acid) 1 mg PO DAILY [facility] Hydroxyzine HCl (Vistaril) 50 mg IM Q6H PRN PRN Reason: nausea/anxiety Dextrose/Sodium Chloride (Dextrose 5%-Normal Saline) 1,000 mls @ 1,000 mls/hr IV ASDIRECTED [facility] Last Admin: 12/20/19 01:20 Dose: 1,000 mls/hr Sodium Chloride (Normal Saline) 1,000 mls @ 150 mls/hr IV ASDIRECTED [facility] Last Admin: 12/20/19 03:40 Dose: 150 mls/hr Iopamidol (Isovue-370 (76%)) 100 ml IV . DIRECTED ONE Stop: 12/20/19 09:09 Lorazepam (Ativan) 0 mg PO ASDIRECTED [facility]; Protocol Morphine Sulfate (Morphine) 4 mg IVPUSH Q4H PRN PRN Reason: Breakthrough Pain Multivitamins/Minerals/Vitamin C (Tab-A-Jocelin) 1 tab PO DAILY [facility] Non-Formulary Medication (Acamprosate [Campral]) 666 mg PO TID [facility] Ondansetron HCl (Zofran) 4 mg IVPUSH Q4H PRN PRN Reason: Nausea/Vomiting Pantoprazole Sodium (Protonix Iv) 40 mg IV DAILY [facility] Sertraline HCl (Zoloft) 75 mg PO DAILY [facility] Sodium Chloride (Saline Flush) 10 ml FLUSH ASDIRECTED PRN PRN Reason: Keep Vein Open Last Admin: 12/20/19 03:44 Dose: 10 ml Thiamine HCl (Vitamin B-1) 100 mg PO DAILY [facility] Assessment/Plan Comment:: I will continue with IV rehydration, CIWA protocol and use lorazepam and morphine generously. I will obtain a CT of the abdomen and pelvis to investigate abdominal pain.
--- NOTE | 2019-12-20 10:55 | CR ---
INDICATION: Cough, nausea and vomiting. CHEST, 1 VIEW: An AP upright view of the chest was obtained portable 12/19/19 and compared with 03/29/19 and 12/16/13. The heart remains normal in size and shape. Calcifications noted in the arch of the aorta, which is only minimally tortuous. The lungs appear to be somewhat hyperaerated. A definite active infiltrate or effusion was not identified. IMPRESSION: No acute process. MTDD
--- NOTE | 2019-12-20 11:10 | CT ---
INDICATION: History of pancreatitis - epigastric pain. CT ABDOMEN AND PELVIS WITH CONTRAST: Spiral 3.75 mm axial sections were obtained through the abdomen and pelvis with only 40 mL Isovue 370 at 1.2 cc/s, apparently due to infiltration at the injection site. Sagittal and coronal reconstructions were obtained 12/20/19 and compared with 03/29/19. Total exam DLP was 267.17 mGy-cm. The lower lung mora and pleural spaces visualized suggested some minimal fibrosis at the left lower lobe - lung base with an appearance making it difficult to entirely exclude minimal patchy pneumonia in that area. This appearance was not as prominent as on the previous examination. The heart appeared normal in size. No pericardial effusion was seen. A small fixed hiatal hernia is noted with inability to exclude thickening of the wall of the gastric fundus - it was not fully distended. This should be correlated clinically as gastritis could be present. The adrenal glands, spleen and pancreas appear to be normal - no evidence of pancreatitis is noted. The right kidney appeared normal. The left kidney was fairly normal in appearance with a tiny low density lesion in the anterior medial cortex of the upper pole, which appears to have been present previously but not as well delineated on the previous study. The liver was unremarkable as was the gallbladder, except to note a calcification in the left lobe of the liver, which was present previously and likely is a scar from previous granulomatous change. Calcifications are minimal in the aorta and in the iliac and femoral arteries. No definite retroperitoneal mass was seen. The appendix appears normal visualized on axial images 60-68 medial to the posterior aspect of the cecum. Uterine artery calcifications are noted. The urinary bladder appears somewhat distended raising questions of a degree of urinary retention. This should be correlated clinically. There is again suggested some thickening of the wall at the rectum, which could be on the basis of inflammation but should be correlated clinically. No evidence of free air or bowel obstruction was seen. No additional mass lesions, organomegaly or free fluid collections were identified in the abdomen or pelvis. No evidence of hepatic steatosis is seen on the current study. IMPRESSION: 1. Small, fixed hiatal hernia similar to previous study. 2. ASD. 3. Minimal probable cystic changes at the left kidney, although other etiology cannot be entirely excluded. 4. Possible urinary retention - correlate clinically. 5. Suggestion of mild thickening of the wall of the rectum seen previously raising question of inflammatory process - proctitis. 6. No definite evidence of pancreatitis identified - correlate clinically and with lab results. MTDD
[2019-12-20] MEDS: Folic Acid 1 MG Tab PO SCH (11:33)
[2019-12-20] MEDS: Multivitamin Tab PO SCH (11:33)
[2019-12-20] MEDS: Sertraline 100 MG Tab PO SCH (11:33)
[2019-12-20] MEDS: Calcium Carbonate 500 MG Tab.Chew PO SCH (11:33)
[2019-12-20] MEDS: Thiamine 100 MG Tab PO SCH (11:33)
[2019-12-20] MEDS: Pantoprazole 40 MG Vial IV SCH (11:56)
[2019-12-20] MEDS: LORazepam 1 MG Tab PO SCH ×2 (13:34→21:04)
[2019-12-20] MEDS ORDERED: Morphine 2 MG/ML SYRINGE IVPUSH PRN (16:44)
[2019-12-21] MEDS: LORazepam 1 MG Tab PO SCH ×7 (00:57→23:51)
[2019-12-21] MEDS: Sodium Chloride 0.9% 1,000 ML IV SCH (01:08)
[2019-12-21] MEDS: Sertraline 100 MG Tab PO SCH (08:23)
[2019-12-21] MEDS: Enoxaparin 30 MG/0.3 ML Syringe SUBCUT SCH (08:23)
[2019-12-21] MEDS: Pantoprazole 40 MG Vial IV SCH (08:24)
[2019-12-21] MEDS: Thiamine 100 MG Tab PO SCH (08:24)
[2019-12-21] MEDS: Multivitamin Tab PO SCH (08:24)
[2019-12-21] MEDS: Folic Acid 1 MG Tab PO SCH (08:24)
[2019-12-21] MEDS: Sodium Chloride 0.9% 10 ML Syringe FLUSH PRN ×2 (08:31→17:32)
--- NOTE | 2019-12-21 09:05 | PCM.PN ---
- General Info Date of Service: 12/21/19 Subjective Update: Still confused,dysarthric Functional Status: Denies: Tolerating Diet, Ambulating - Review of Systems General: Reports: No Symptoms HEENT: Reports: No Symptoms Pulmonary: Reports: No Symptoms Cardiovascular: Reports: No Symptoms Gastrointestinal: Reports: Decreased Appetite, Nausea Genitourinary: Reports: No Symptoms Musculoskeletal: Reports: No Symptoms Skin: Reports: No Symptoms Neurological: Reports: Confusion Psychiatric: Reports: Confusion - Patient Data Vitals - Most Recent: Last Vital Signs Temp 97.8 F 12/20/19 21:30 Pulse 115 H 12/21/19 05:00 Resp 20 12/21/19 05:00 BP 138/90 12/21/19 05:00 Pulse Ox 97 12/21/19 05:00 Weight - Most Recent: 43.148 kg I&O - Last 24 Hours: Intake & Output 12/20/19 12/21/19 12/21/19 22:59 06:59 14:59 Intake Total 767 754 Output Total 200 Balance 567 754 Lab Results Last 24 Hours: Laboratory Results - last 24 hr 12/20/19 12/20/19 12/21/19 Range/Units 09:57 09:57 06:25 WBC 9.7 (4.5-12.0) X10-3/uL RBC 2.89 L (3.23-5.20) x10(6)uL Hgb 7.5 L (11.5-15.5) g/dL Hct 23.6 L (30.0-51.3) % MCV 81.6 (80-96) fL MCH 25.9 L (27.7-33.6) pg MCHC 31.7 L (32.2-35.4) g/dL RDW 21.5 H (11.5-15.5) % Plt Count 294 (125-369) X10(3)uL MPV 6.1 L (7.4-10.4) fL Neut % (Auto) 74.6 (46-82) % Lymph % (Auto) 19.0 (13-37) % [place] % (Auto) 5.4 (4-12) % Eos % (Auto) 1 (1.0-5.0) % Baso % (Auto) 0 (0-2) % Neut # (Auto) 7.2 (1.6-8.3) # Lymph # (Auto) 1.8 (0.6-5.0) # [place] # (Auto) 0.5 (0.0-1.3) # Eos # (Auto) 0.1 (0.0-0.8) # Baso # (Auto) 0.0 (0.0-0.2) # Sodium (135-145) mmol/L Potassium (3.5-5.3) mmol/L Chloride (100-110) mmol/L Carbon Dioxide (21-32) mmol/L BUN (7-18) mg/dL Creatinine (0.55-1.02) mg/dL Est Cr Clr Drug Dosing mL/min Estimated GFR (MDRD) (>60) BUN/Creatinine Ratio (9-20) Glucose (80-116) mg/dL Calcium (8.6-10.2) mg/dL Total Bilirubin (0.1-1.3) mg/dL AST (5-25) IU/L ALT (12-36) U/L Alkaline Phosphatase (56-112) IU/L Total Protein (6.0-8.0) g/dL Albumin (3.2-4.6) g/dL Globulin g/dL Albumin/Globulin Ratio Amylase (25-115) U/L Urine Color Yellow (YELLOW) Urine Appearance Slightly cloudy (CLEAR) Urine pH 6.0 (5.0-6.5) Ur Specific [place] 1.015 (1.010-1.025) Urine Protein 30 H (NEGATIVE) mg/dL Urine Glucose (UA) >1000 H (NORMAL) mg/dL Urine Ketones 50 H (NEGATIVE) mg/dL Urine Occult Blood Large H (NEGATIVE) Urine Nitrite Negative (NEGATIVE) Urine Bilirubin Negative (NEGATIVE) Urine Urobilinogen Normal (NEGATIVE) mg/dL Ur Leukocyte Esterase Large H (NEGATIVE) Urine RBC 5-10 H (0-5) Urine WBC 30-40 H (0-5) Ur Squamous Epith Cells Few H (NS,R,O) Urine Bacteria Many H (NS) Urine Opiates Screen Negative (NEGATIVE) Ur Oxycodone Screen Negative (NEGATIVE) Ur Propoxyphene Screen Negative (NEGATIVE) Ur Barbituates Screen Negative (NEGATIVE) Ur Tricyclics Screen Negative (NEGATIVE) Ur Phencyclidine Scrn Negative (NEGATIVE) Ur Amphetamine Screen Negative (NEGATIVE) Urine MDMA Screen Negative (NEGATIVE) U Benzodiazepines Scrn Positive H (NEGATIVE) U Cocaine Metab Screen Negative (NEGATIVE) U Marijuana (THC) Screen Negative (NEGATIVE) 12/21/19 Range/Units 06:25 WBC (4.5-12.0) X10-3/uL RBC (3.23-5.20) x10(6)uL Hgb (11.5-15.5) g/dL Hct (30.0-51.3) % MCV (80-96) fL MCH (27.7-33.6) pg MCHC (32.2-35.4) g/dL RDW (11.5-15.5) % Plt Count (125-369) X10(3)uL MPV (7.4-10.4) fL Neut % (Auto) (46-82) % Lymph % (Auto) (13-37) % [place] % (Auto) (4-12) % Eos % (Auto) (1.0-5.0) % Baso % (Auto) (0-2) % Neut # (Auto) (1.6-8.3) # Lymph # (Auto) (0.6-5.0) # [place] # (Auto) (0.0-1.3) # Eos # (Auto) (0.0-0.8) # Baso # (Auto) (0.0-0.2) # Sodium 141 (135-145) mmol/L Potassium 3.1 L (3.5-5.3) mmol/L Chloride 104 (100-110) mmol/L Carbon Dioxide 27 (21-32) mmol/L BUN 7 D (7-18) mg/dL Creatinine 0.6 (0.55-1.02) mg/dL Est Cr Clr Drug Dosing 63.67 mL/min Estimated GFR (MDRD) > 60 (>60) BUN/Creatinine Ratio 11.7 (9-20) Glucose 81 D (80-116) mg/dL Calcium 7.4 L (8.6-10.2) mg/dL Total Bilirubin 0.6 (0.1-1.3) mg/dL AST 45 H (5-25) IU/L ALT 25 (12-36) U/L Alkaline Phosphatase 86 (56-112) IU/L Total Protein 6.2 (6.0-8.0) g/dL Albumin 3.0 L (3.2-4.6) g/dL Globulin 3.2 g/dL Albumin/Globulin Ratio 0.9 Amylase 73 (25-115) U/L Urine Color (YELLOW) Urine Appearance (CLEAR) Urine pH (5.0-6.5) Ur Specific [place] (1.010-1.025) Urine Protein (NEGATIVE) mg/dL Urine Glucose (UA) (NORMAL) mg/dL Urine Ketones (NEGATIVE) mg/dL Urine Occult Blood (NEGATIVE) Urine Nitrite (NEGATIVE) Urine Bilirubin (NEGATIVE) Urine Urobilinogen (NEGATIVE) mg/dL Ur Leukocyte Esterase (NEGATIVE) Urine RBC (0-5) Urine WBC (0-5) Ur Squamous Epith Cells (NS,R,O) Urine Bacteria (NS) Urine Opiates Screen (NEGATIVE) Ur Oxycodone Screen (NEGATIVE) Ur Propoxyphene Screen (NEGATIVE) Ur Barbituates Screen (NEGATIVE) Ur Tricyclics Screen (NEGATIVE) Ur Phencyclidine Scrn (NEGATIVE) Ur Amphetamine Screen (NEGATIVE) Urine MDMA Screen (NEGATIVE) U Benzodiazepines Scrn (NEGATIVE) U Cocaine Metab Screen (NEGATIVE) U Marijuana (THC) Screen (NEGATIVE) Esa Results Last 24 Hours: Microbiology 12/20/19 09:57 Urine Culture - Preliminary Urine, Bladder Gram Negative Rods Gram Negative Rods#2 Med Orders - Current: Current Medications Calcium Carbonate/Glycine (Tums) 500 mg PO Q48H [facility] Last Admin: 12/20/19 11:33 Dose: 500 mg Enoxaparin Sodium (Lovenox) 30 mg SUBCUT Q24H [facility] Last Admin: 12/21/19 08:23 Dose: 30 mg Folic Acid (Folic Acid) 1 mg PO DAILY [facility] Last Admin: 12/21/19 08:24 Dose: 1 mg Hydroxyzine HCl (Vistaril) 50 mg IM Q6H PRN PRN Reason: nausea/anxiety Sodium Chloride (Normal Saline) 1,000 mls @ 100 mls/hr IV ASDIRECTED [facility] Last Admin: 12/21/19 01:08 Dose: 100 mls/hr Lorazepam (Ativan) 0 mg PO ASDIRECTED [facility]; Protocol Last Admin: 12/21/19 04:47 Dose: 1 mg Morphine Sulfate (Morphine) 2 mg IVPUSH Q4H PRN PRN Reason: Breakthrough Pain Multivitamins/Minerals/Vitamin C (Tab-A-Jocelin) 1 tab PO DAILY [facility] Last Admin: 12/21/19 08:24 Dose: 1 tab Ondansetron HCl (Zofran) 4 mg IVPUSH Q4H PRN PRN Reason: Nausea/Vomiting Last Admin: 12/20/19 12:06 Dose: 4 mg Pantoprazole Sodium (Protonix Iv) 40 mg IV DAILY [facility] Last Admin: 12/21/19 08:24 Dose: 40 mg Sertraline HCl (Zoloft) 100 mg PO DAILY [facility] Last Admin: 12/21/19 08:23 Dose: 100 mg Sodium Chloride (Saline Flush) 10 ml FLUSH ASDIRECTED PRN PRN Reason: Keep Vein Open Last Admin: 12/21/19 08:31 Dose: 10 ml Thiamine HCl (Vitamin B-1) 100 mg PO DAILY [facility] Last Admin: 12/21/19 08:24 Dose: 100 mg Discontinued Medications Enoxaparin Sodium (Lovenox) 30 mg SUBCUT Q24H [facility] Last Admin: 12/20/19 03:51 Dose: 30 mg Hydroxyzine HCl (Vistaril) 50 mg IM ONETIME ONE Stop: 12/20/19 01:46 Last Admin: 12/20/19 02:21 Dose: 50 mg Dextrose/Sodium Chloride (Dextrose 5%-Normal Saline) 1,000 mls @ 1,000 mls/hr IV ASDIRECTED [facility] Last Admin: 12/20/19 01:20 Dose: 1,000 mls/hr Thiamine HCl 100 mg/ Sodium (Chloride) 101 mls @ 202 mls/hr IV ONETIME ONE Stop: 12/20/19 01:04 Last Admin: 12/20/19 02:03 Dose: 202 mls/hr Sodium Chloride (Normal Saline) 1,000 mls @ 150 mls/hr IV ASDIRECTED [facility] Last Admin: 12/20/19 12:00 Dose: 150 mls/hr Iopamidol (Isovue-370 (76%)) 100 ml IV . DIRECTED ONE Stop: 12/20/19 09:09 Last Admin: 12/20/19 10:06 Dose: 40 ml Lorazepam (Ativan) 1 mg IVPUSH NOW STA Stop: 12/20/19 03:21 Last Admin: 12/20/19 03:39 Dose: 1 mg Morphine Sulfate (Morphine) 4 mg IVPUSH Q4H PRN PRN Reason: Breakthrough Pain Non-Formulary Medication (Acamprosate [Campral]) 666 mg PO TID [facility] Last Admin: 12/20/19 12:27 Dose: Not Given Ondansetron HCl (Zofran Odt) 8 mg PO ONETIME ONE Stop: 12/20/19 00:58 Last Admin: 12/20/19 01:10 Dose: 8 mg - Exam General: Alert HEENT: Pupils Equal Neck: Supple Lungs: Clear to Auscultation Cardiovascular: Regular Rate Extremities: Normal Inspection Neurological: No: Normal Speech Psy/Mental Status: Alert Sepsis Event Note - Evaluation Sepsis Screening Result: No Definite Risk - Focused Exam Vital Signs: Vital Signs Temp Pulse Resp BP Pulse Ox 12/21/19 05:00 115 H 20 138/90 97 12/21/19 01:40 97 12/21/19 01:00 118 H 20 138/85 97 12/20/19 21:30 97.8 F 120 H 20 144/90 H 98 Date Exam was Performed: 12/21/19 Time Exam was Performed: 09:02 - Problem List & Annotations (1) Alcohol abuse with intoxication SNOMED Code(s): 33132253 Code(s): F10.129 - ALCOHOL ABUSE WITH INTOXICATION, UNSPECIFIED Status: Acute Current Visit: Yes (2) Cyclic vomiting syndrome Status: Acute Current Visit: Yes (3) Dehydration SNOMED Code(s): 23464145 Code(s): E86.0 - DEHYDRATION Status: Acute Current Visit: Yes (4) Alcohol withdrawal syndrome SNOMED Code(s): 541758065 Code(s): F10.239 - ALCOHOL DEPENDENCE WITH WITHDRAWAL, UNSPECIFIED Status: Acute Current Visit: No (5) Dyskinesia SNOMED Code(s): 0751584 Code(s): G24.9 - DYSTONIA, UNSPECIFIED Status: Acute Current Visit: No (6) MDD (major depressive disorder) SNOMED Code(s): 142913345 Code(s): F32.9 - MAJOR DEPRESSIVE DISORDER, SINGLE EPISODE, UNSPECIFIED Status: Acute Current Visit: No Qualifiers: Major depression recurrence: recurrent Active/Remission status: currently active (7) Hypomagnesemia SNOMED Code(s): 953787164 Code(s): E83.42 - HYPOMAGNESEMIA Status: Resolved Current Visit: No Annotation/Comment:: improving (8) Anemia SNOMED Code(s): 692797304 Code(s): D64.9 - ANEMIA, UNSPECIFIED Status: Acute Current Visit: Yes - Problem List Review Problem List Initiated/Reviewed/Updated: Yes - My Orders Last 24 Hours: My Active Orders 12/20/19 09:57 CULTURE URINE [RM] Routine 12/20/19 10:00 Sertraline [Zoloft] 100 mg PO DAILY 12/20/19 16:44 Morphine 2 mg IVPUSH Q4H PRN 12/21/19 09:01 RED BLOOD CELLS LP [BBK] Urgent TYPE AND SCREEN [BBK] Routine Transfuse Red Blood Cells [COMM] Urgent 12/21/19 09:15 Sodium Chloride 0.9% [Normal Saline] 250 ml IV ASDIRECTED 12/21/19 Lunch Clear Liquid Diet [DIET] 12/22/19 05:11 CBC WITH AUTO DIFF [HEME] AM COMPREHENSIVE METABOLIC PN,CMP [CHEM] AM - Assessment Assessment:: Patient still has a CIWA score of 17. Speech is unintelligible.Hemoglobin down to 7.7 g/dl. I will give her 2 units of blood today, continue the protocol for CIWA. Consider CT of head if symptoms not improve. Advance diet to clear liquid. Repeat labs tomorrow morning. - Plan Plan:: I will continue with IV rehydration, CIWA protocol and use lorazepam and morphine generously. I will obtain a CT of the abdomen and pelvis to investigate abdominal pain.
[2019-12-21] MEDS ORDERED: Sodium Chloride 0.9% 250 ML IV SCH (09:15)
[2019-12-21] MEDS ORDERED: hydrOXYzine HCl 25 MG Tab PO PRN (22:40)
[2019-12-22] MEDS: Sodium Chloride 0.9% 10 ML Syringe FLUSH PRN (01:13)
[2019-12-22] MEDS: LORazepam 1 MG Tab PO SCH ×12 (02:02→22:33)
[2019-12-22] MEDS: Enoxaparin 30 MG/0.3 ML Syringe SUBCUT SCH (08:46)
[2019-12-22] MEDS: Pantoprazole 40 MG Vial IV SCH (08:46)
[2019-12-22] MEDS: Sertraline 100 MG Tab PO SCH (08:46)
[2019-12-22] MEDS: Thiamine 100 MG Tab PO SCH (08:46)
[2019-12-22] MEDS: Folic Acid 1 MG Tab PO SCH (08:46)
[2019-12-22] MEDS: Multivitamin Tab PO SCH (08:46)
[2019-12-22] MEDS: Calcium Carbonate 500 MG Tab.Chew PO SCH (09:34)
[2019-12-22] MEDS: Potassium Chloride 20 MEQ Tab.ER PO SCH ×2 (10:48→12:07)
[2019-12-22] MEDS: Ciprofloxacin 500 MG Tab PO SCH ×2 (10:48→20:00)
--- NOTE | 2019-12-22 12:02 | PCM.PN ---
- General Info Date of Service: 12/22/19 Admission Dx/Problem (Free Text): Zuleika is having visual hallucinations, CIWA score in 17, getting oral Ativan. Asking to eat some eggs this morning. Had transfusion of 2 units of PRBCs, hemoglobin improved today. CT abdomen/pelvis showed thickening of gastric fundus , suspected gastritis. States her pain is over her stomach and in her pelvis. Urine culture grew out E. Coli and Citrobacter. Still confused. Functional Status: Reports: Pain Controlled - Patient Data Vitals - Most Recent: Last Vital Signs Temp 98 F 12/22/19 08:00 Pulse 87 12/22/19 08:00 Resp 12 12/22/19 08:00 BP 140/93 H 12/22/19 08:00 Pulse Ox 85 L 12/22/19 08:00 Weight - Most Recent: 95 lb 2 oz I&O - Last 24 Hours: Intake & Output 12/21/19 12/22/19 12/22/19 22:59 06:59 14:59 Intake Total 595 100 Output Total 0 Balance 595 100 Lab Results Last 24 Hours: Laboratory Results - last 24 hr 12/21/19 12/22/19 12/22/19 Range/Units 06:25 06:15 06:15 WBC 8.7 (4.5-12.0) X10-3/uL RBC 4.40 (3.23-5.20) x10(6)uL Hgb 11.5 D (11.5-15.5) g/dL Hct 36.0 D (30.0-51.3) % MCV 81.7 (80-96) fL MCH 26.2 L (27.7-33.6) pg MCHC 32.1 L (32.2-35.4) g/dL RDW 18.1 H (11.5-15.5) % Plt Count 197 (125-369) X10(3)uL MPV 7.0 L (7.4-10.4) fL Neut % (Auto) 65.1 (46-82) % Lymph % (Auto) 25.4 (13-37) % [place] % (Auto) 5.5 (4-12) % Eos % (Auto) 2 (1.0-5.0) % Baso % (Auto) 2 (0-2) % Neut # (Auto) 5.6 (1.6-8.3) # Lymph # (Auto) 2.2 (0.6-5.0) # [place] # (Auto) 0.5 (0.0-1.3) # Eos # (Auto) 0.2 (0.0-0.8) # Baso # (Auto) 0.2 (0.0-0.2) # Sodium 141 (135-145) mmol/L Potassium 2.7 L* (3.5-5.3) mmol/L Chloride 103 (100-110) mmol/L Carbon Dioxide 30 (21-32) mmol/L BUN 4 L (7-18) mg/dL Creatinine 0.5 L (0.55-1.02) mg/dL Est Cr Clr Drug Dosing 76.41 mL/min Estimated GFR (MDRD) > 60 (>60) BUN/Creatinine Ratio 8.0 L (9-20) Glucose 84 (80-116) mg/dL Calcium 8.0 L (8.6-10.2) mg/dL Total Bilirubin 0.7 (0.1-1.3) mg/dL AST 42 H (5-25) IU/L ALT 28 D (12-36) U/L Alkaline Phosphatase 90 (56-112) IU/L Total Protein 6.5 (6.0-8.0) g/dL Albumin 3.2 (3.2-4.6) g/dL Globulin 3.3 g/dL Albumin/Globulin Ratio 1.0 Blood Type O POSITIVE Gel Antibody Screen Negative Crossmatch See Detail Esa Results Last 24 Hours: Microbiology 12/20/19 09:57 Urine Culture - Final Urine, Bladder Escherichia Coli Citrobacter Murliniae Med Orders - Current: Current Medications Ciprofloxacin (Ciprofloxacin Hcl) 500 mg PO BID [facility] Stop: 12/26/19 21:01 Last Admin: 12/22/19 10:48 Dose: 500 mg Enoxaparin Sodium (Lovenox) 30 mg SUBCUT Q24H [facility] Last Admin: 12/22/19 08:46 Dose: 30 mg Folic Acid (Folic Acid) 1 mg PO DAILY [facility] Last Admin: 12/22/19 08:46 Dose: 1 mg Hydroxyzine HCl (Vistaril) 50 mg IM Q6H PRN PRN Reason: nausea/anxiety Sodium Chloride (Normal Saline) 250 mls @ 100 mls/hr IV ASDIRECTED [facility] Lorazepam (Ativan) 0 mg PO ASDIRECTED [facility]; Protocol Last Admin: 12/22/19 10:48 Dose: 2 mg Magnesium Oxide (Magnesium Oxide) 400 mg PO DAILY@1200 [facility] Melatonin (Melatonin) 3 mg PO BEDTIME PRN PRN Reason: SLEEP Morphine Sulfate (Morphine) 2 mg IVPUSH Q4H PRN PRN Reason: Breakthrough Pain Last Admin: 12/22/19 01:11 Dose: 2 mg Multivitamins/Minerals/Vitamin C (Tab-A-Jocelin) 1 tab PO DAILY@1200 [facility] Pantoprazole Sodium (Protonix Iv) 40 mg IVPUSH Q12H [facility] Potassium Chloride (Klor-Con M20) 20 meq PO BID@1000,1200 [facility] Stop: 12/22/19 12:01 Last Admin: 12/22/19 10:48 Dose: 20 meq Sertraline HCl (Zoloft) 100 mg PO DAILY [facility] Last Admin: 12/22/19 08:46 Dose: 100 mg Sodium Chloride (Saline Flush) 10 ml FLUSH ASDIRECTED PRN PRN Reason: Keep Vein Open Last Admin: 12/22/19 01:13 Dose: 10 ml Thiamine HCl (Vitamin B-1) 100 mg PO DAILY [facility] Last Admin: 12/22/19 08:46 Dose: 100 mg Discontinued Medications Calcium Carbonate/Glycine (Tums) 500 mg PO Q48H [facility] Last Admin: 12/22/19 09:34 Dose: Not Given Enoxaparin Sodium (Lovenox) 30 mg SUBCUT Q24H [facility] Last Admin: 12/20/19 03:51 Dose: 30 mg Hydroxyzine HCl (Vistaril) 50 mg IM ONETIME ONE Stop: 12/20/19 01:46 Last Admin: 12/20/19 02:21 Dose: 50 mg Hydroxyzine HCl (Atarax) 25 mg PO BEDTIME PRN PRN Reason: Insomnia Last Admin: 12/21/19 23:51 Dose: 25 mg Dextrose/Sodium Chloride (Dextrose 5%-Normal Saline) 1,000 mls @ 1,000 mls/hr IV ASDIRECTED [facility] Last Admin: 12/20/19 01:20 Dose: 1,000 mls/hr Thiamine HCl 100 mg/ Sodium (Chloride) 101 mls @ 202 mls/hr IV ONETIME ONE Stop: 12/20/19 01:04 Last Admin: 12/20/19 02:03 Dose: 202 mls/hr Sodium Chloride (Normal Saline) 1,000 mls @ 150 mls/hr IV ASDIRECTED [facility] Last Admin: 12/20/19 12:00 Dose: 150 mls/hr Sodium Chloride (Normal Saline) 1,000 mls @ 100 mls/hr IV ASDIRECTED [facility] Last Admin: 12/21/19 01:08 Dose: 100 mls/hr Iopamidol (Isovue-370 (76%)) 100 ml IV . DIRECTED ONE Stop: 12/20/19 09:09 Last Admin: 12/20/19 10:06 Dose: 40 ml Lorazepam (Ativan) 1 mg IVPUSH NOW STA Stop: 12/20/19 03:21 Last Admin: 12/20/19 03:39 Dose: 1 mg Morphine Sulfate (Morphine) 4 mg IVPUSH Q4H PRN PRN Reason: Breakthrough Pain Multivitamins/Minerals/Vitamin C (Tab-A-Jocelin) 1 tab PO DAILY [facility] Last Admin: 12/22/19 08:46 Dose: 1 tab Non-Formulary Medication (Acamprosate [Campral]) 666 mg PO TID [facility] Last Admin: 12/20/19 12:27 Dose: Not Given Ondansetron HCl (Zofran Odt) 8 mg PO ONETIME ONE Stop: 12/20/19 00:58 Last Admin: 12/20/19 01:10 Dose: 8 mg Ondansetron HCl (Zofran) 4 mg IVPUSH Q4H PRN PRN Reason: Nausea/Vomiting Last Admin: 12/20/19 12:06 Dose: 4 mg Pantoprazole Sodium (Protonix Iv) 40 mg IV DAILY [facility] Last Admin: 12/22/19 08:46 Dose: 40 mg - Exam General: Cooperative, No Acute Distress, Other (Confused, but does answer questions, ) Lungs: Clear to Auscultation, Normal Respiratory Effort Cardiovascular: Regular Rate, Regular Rhythm GI/Abdominal Exam: Normal Bowel Sounds, Soft, No Distention, Guarding, Tender ( epigastric & suprapubic). No: Rigid, Rebound Extremities: No Pedal Edema Peripheral Pulses: 2+: Radial (L), Radial (R) Skin: Warm, Dry, Intact Psy/Mental Status: Hallucinations (visual), Withdrawal Symptoms Sepsis Event Note - Evaluation Sepsis Screening Result: No Definite Risk - Focused Exam Vital Signs: Vital Signs Temp Pulse Resp BP BP Pulse Ox 12/22/19 08:00 98 F 87 12 140/93 H 85 L 12/22/19 03:57 108 H 20 156/98 H 93 L 12/22/19 00:00 110 H 20 150/90 H 93 L Date Exam was Performed: 12/22/19 Time Exam was Performed: 11:57 - Problem List & Annotations (1) UTI (urinary tract infection) SNOMED Code(s): 63479699 Code(s): N39.0 - URINARY TRACT INFECTION, SITE NOT SPECIFIED Status: Acute Current Visit: Yes (2) Alcohol abuse with intoxication SNOMED Code(s): 46578276 Code(s): F10.129 - ALCOHOL ABUSE WITH INTOXICATION, UNSPECIFIED Status: Acute Current Visit: Yes (3) Anemia SNOMED Code(s): 564359151 Code(s): D64.9 - ANEMIA, UNSPECIFIED Status: Acute Current Visit: Yes (4) Hypokalemia SNOMED Code(s): 86380838 Code(s): E87.6 - HYPOKALEMIA Status: Acute Current Visit: No Annotation /Comment:: (5) Abdominal pain SNOMED Code(s): 13076360 Code(s): R10.9 - UNSPECIFIED ABDOMINAL PAIN Status: Acute Current Visit: No (6) Alcohol withdrawal SNOMED Code(s): 416692299 Code(s): F10.239 - ALCOHOL DEPENDENCE WITH WITHDRAWAL, UNSPECIFIED Status: Acute Current Visit: No Qualifiers: Complication of substance-induced condition: with unspecified complication Qualified Code(s): F10.239 - Alcohol dependence with withdrawal, unspecified (7) Hypomagnesemia SNOMED Code(s): 254658526 Code(s): E83.42 - HYPOMAGNESEMIA Status: Acute Current Visit: No Annotation/Comment:: improving (8) Gastritis SNOMED Code(s): 6851036 Code(s): K29.70 - GASTRITIS, UNSPECIFIED, WITHOUT BLEEDING Status: Chronic Current Visit: No Qualifiers: Gastritis type: unspecified gastritis Chronicity: unspecified Gastritis bleeding: presence of bleeding unspecified Qualified Code(s): K29.70 - Gastritis, unspecified, without bleeding (9) H/O ETOH abuse SNOMED Code(s): 674000655 Code(s): Z87.898 - PERSONAL HISTORY OF OTHER SPECIFIED CONDITIONS Status: Chronic Current Visit: No - Problem List Review Problem List Initiated/Reviewed/Updated: Yes - My Orders Last 24 Hours: My Active Orders 12/22/19 09:45 Melatonin 3 mg PO BEDTIME PRN 12/22/19 10:00 Ciprofloxacin [Ciprofloxacin HCl] 500 mg PO BID Potassium Chloride [Klor-Con M20] 20 meq PO BID@1000,1200 12/22/19 11:01 OCCULT BLOOD SCREEN [OP] Routine 12/22/19 11:13 INR,PT,PROTHROMBIN TIME [COAG] Routine 12/22/19 12:00 Magnesium Oxide 400 mg PO DAILY@1200 12/22/19 21:00 Pantoprazole [ProTONIX IV] 40 mg IVPUSH Q12H 12/22/19 Dinner Soft Diet [DIET] 12/23/19 05:11 BASIC METABOLIC PANEL,BMP [CHEM] Routine CBC WITH AUTO DIFF [HEME] Routine - Plan Plan:: 1. IV fluids, advance diet to soft. 2. CIWA protocol. 3. Ciprofloxacin 400 mg IV q12h, UC grew E. coli & Citrobacter, sensitive to Ciprofloxacin. 4. Potassium and Magnesium oral replacement, if she does not tolerate orally, then would give IV forms. Repeat labs tomorrow. 5. 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 She was admitted in April with similar situation, could not get emergency guardian so was discharged home after 2 weeks in hospital and returns in similar issues related to her alcoholism. If her brother could get guardianship would recommend [place] home placement for this patient.
[2019-12-22] MEDS: Magnesium Oxide 400 MG Tab PO SCH (12:07)
[2019-12-22] MEDS: Pantoprazole 40 MG Vial IVPUSH SCH ×2 (21:24→22:50)
[2019-12-22] MEDS: Melatonin 3 MG Tab PO PRN (22:30)
[2019-12-22] MEDS ORDERED: Pantoprazole 40 MG Tab.CR PO ONE (23:00)
[2019-12-23] MEDS: LORazepam 1 MG Tab PO SCH ×7 (01:24→22:51)
--- NOTE | 2019-12-23 09:16 | PCM.PN ---
- General Info Date of Service: 12/23/19 Admission Dx/Problem (Free Text): Zuleika Lamb had CIWAA scores of 20, 18 overnight, she had 4 doses of Ativan overnight, sleeping this morning but does wake to her name. - Patient Data Vitals - Most Recent: Last Vital Signs Temp 97.5 F 12/23/19 04:50 Pulse 90 12/23/19 04:50 Resp 14 12/23/19 04:50 BP 139/80 12/23/19 04:50 Pulse Ox 92 L 12/23/19 04:50 Weight - Most Recent: 95 lb 2 oz I&O - Last 24 Hours: Intake & Output 12/22/19 12/23/19 12/23/19 22:59 06:59 14:59 Intake Total 100 200 Balance 100 200 Lab Results Last 24 Hours: Laboratory Results - last 24 hr 12/22/19 12/23/19 12/23/19 Range/Units 13:05 06:05 06:05 WBC 7.7 (4.5-12.0) X10-3/uL RBC 4.49 (3.23-5.20) x10(6)uL Hgb 11.8 (11.5-15.5) g/dL Hct 37.1 (30.0-51.3) % MCV 82.5 (80-96) fL MCH 26.3 L (27.7-33.6) pg MCHC 31.9 L (32.2-35.4) g/dL RDW 17.4 H (11.5-15.5) % Plt Count 186 (125-369) X10(3)uL MPV 6.9 L (7.4-10.4) fL Neut % (Auto) 67.2 (46-82) % Lymph % (Auto) 19.5 (13-37) % Irwin % (Auto) 5.7 (4-12) % Eos % (Auto) 5 (1.0-5.0) % Baso % (Auto) 2 (0-2) % Neut # (Auto) 5.2 (1.6-8.3) # Lymph # (Auto) 1.5 (0.6-5.0) # Irwin # (Auto) 0.4 (0.0-1.3) # Eos # (Auto) 0.4 (0.0-0.8) # Baso # (Auto) 0.2 (0.0-0.2) # PT 10.6 (9.0-11.1) sec INR 0.98 L (1.00-1.24) Sodium 142 (135-145) mmol/L Potassium 3.2 L (3.5-5.3) mmol/L Chloride 103 (100-110) mmol/L Carbon Dioxide 29 (21-32) mmol/L BUN 4 L (7-18) mg/dL Creatinine 0.5 L (0.55-1.02) mg/dL Est Cr Clr Drug Dosing 76.41 mL/min Estimated GFR (MDRD) > 60 (>60) BUN/Creatinine Ratio 8.0 L (9-20) Glucose 81 (80-116) mg/dL Calcium 8.2 L (8.6-10.2) mg/dL Esa Results Last 24 Hours: Microbiology 12/22/19 14:24 Occult Blood - Preliminary Stool / Feces 12/20/19 09:57 Urine Culture - Final Urine, Bladder Escherichia Coli Citrobacter Murliniae Med Orders - Current: Current Medications Ciprofloxacin (Ciprofloxacin Hcl) 500 mg PO BID [facility] Stop: 12/26/19 21:01 Last Admin: 12/22/19 20:00 Dose: 500 mg Enoxaparin Sodium (Lovenox) 30 mg SUBCUT Q24H [facility] Last Admin: 12/22/19 08:46 Dose: 30 mg Folic Acid (Folic Acid) 1 mg PO DAILY [facility] Last Admin: 12/22/19 08:46 Dose: 1 mg Hydroxyzine HCl (Vistaril) 50 mg IM Q6H PRN PRN Reason: nausea/anxiety Sodium Chloride (Normal Saline) 250 mls @ 100 mls/hr IV ASDIRECTED [facility] Lorazepam (Ativan) 0 mg PO ASDIRECTED [facility]; Protocol Last Admin: 12/23/19 05:00 Dose: 2 mg Magnesium Oxide (Magnesium Oxide) 400 mg PO DAILY@1200 [facility] Last Admin: 12/22/19 12:07 Dose: 400 mg Melatonin (Melatonin) 3 mg PO BEDTIME PRN PRN Reason: SLEEP Last Admin: 12/22/19 22:30 Dose: 3 mg Morphine Sulfate (Morphine) 2 mg IVPUSH Q4H PRN PRN Reason: Breakthrough Pain Last Admin: 12/22/19 01:11 Dose: 2 mg Multivitamins/Minerals/Vitamin C (Tab-A-Jocelin) 1 tab PO DAILY@1200 [facility] Pantoprazole Sodium (Protonix Iv) 40 mg IVPUSH Q12H [facility] Last Admin: 12/22/19 22:50 Dose: Not Given Potassium Chloride (Klor-Con M20) 20 meq PO BID [facility] Sertraline HCl (Zoloft) 100 mg PO DAILY [facility] Last Admin: 12/22/19 08:46 Dose: 100 mg Sodium Chloride (Saline Flush) 10 ml FLUSH ASDIRECTED PRN PRN Reason: Keep Vein Open Last Admin: 12/22/19 01:13 Dose: 10 ml Thiamine HCl (Vitamin B-1) 100 mg PO DAILY [facility] Last Admin: 12/22/19 08:46 Dose: 100 mg Discontinued Medications Calcium Carbonate/Glycine (Tums) 500 mg PO Q48H [facility] Last Admin: 12/22/19 09:34 Dose: Not Given Enoxaparin Sodium (Lovenox) 30 mg SUBCUT Q24H [facility] Last Admin: 12/20/19 03:51 Dose: 30 mg Hydroxyzine HCl (Vistaril) 50 mg IM ONETIME ONE Stop: 12/20/19 01:46 Last Admin: 12/20/19 02:21 Dose: 50 mg Hydroxyzine HCl (Atarax) 25 mg PO BEDTIME PRN PRN Reason: Insomnia Last Admin: 12/21/19 23:51 Dose: 25 mg Dextrose/Sodium Chloride (Dextrose 5%-Normal Saline) 1,000 mls @ 1,000 mls/hr IV ASDIRECTED [facility] Last Admin: 12/20/19 01:20 Dose: 1,000 mls/hr Thiamine HCl 100 mg/ Sodium (Chloride) 101 mls @ 202 mls/hr IV ONETIME ONE Stop: 12/20/19 01:04 Last Admin: 12/20/19 02:03 Dose: 202 mls/hr Sodium Chloride (Normal Saline) 1,000 mls @ 150 mls/hr IV ASDIRECTED [facility] Last Admin: 12/20/19 12:00 Dose: 150 mls/hr Sodium Chloride (Normal Saline) 1,000 mls @ 100 mls/hr IV ASDIRECTED [facility] Last Admin: 12/21/19 01:08 Dose: 100 mls/hr Iopamidol (Isovue-370 (76%)) 100 ml IV . DIRECTED ONE Stop: 12/20/19 09:09 Last Admin: 12/20/19 10:06 Dose: 40 ml Lorazepam (Ativan) 1 mg IVPUSH NOW STA Stop: 12/20/19 03:21 Last Admin: 12/20/19 03:39 Dose: 1 mg Morphine Sulfate (Morphine) 4 mg IVPUSH Q4H PRN PRN Reason: Breakthrough Pain Multivitamins/Minerals/Vitamin C (Tab-A-Jocelin) 1 tab PO DAILY [facility] Last Admin: 12/22/19 08:46 Dose: 1 tab Non-Formulary Medication (Acamprosate [Campral]) 666 mg PO TID [facility] Last Admin: 12/20/19 12:27 Dose: Not Given Ondansetron HCl (Zofran Odt) 8 mg PO ONETIME ONE Stop: 12/20/19 00:58 Last Admin: 12/20/19 01:10 Dose: 8 mg Ondansetron HCl (Zofran) 4 mg IVPUSH Q4H PRN PRN Reason: Nausea/Vomiting Last Admin: 12/20/19 12:06 Dose: 4 mg Pantoprazole Sodium (Protonix Iv) 40 mg IV DAILY [facility] Last Admin: 12/22/19 08:46 Dose: 40 mg Pantoprazole Sodium (Protonix) 40 mg PO NOW ONE Stop: 12/22/19 23:01 Last Admin: 12/22/19 23:02 Dose: 40 mg Potassium Chloride (Klor-Con M20) 20 meq PO BID@1000,1200 [facility] Stop: 12/22/19 12:01 Last Admin: 12/22/19 12:07 Dose: 20 meq - Exam General: No Acute Distress, Other (Sleeping) Lungs: Clear to Auscultation, Normal Respiratory Effort Cardiovascular: Regular Rate, Regular Rhythm GI/Abdominal Exam: Normal Bowel Sounds, Soft, Non-Tender, No Distention Extremities: No Pedal Edema Peripheral Pulses: 2+: Radial (L), Radial (R) Sepsis Event Note - Evaluation Sepsis Screening Result: No Definite Risk - Focused Exam Vital Signs: Vital Signs Temp Pulse Resp BP Pulse Ox 12/23/19 04:50 97.5 F 90 14 139/80 92 L 12/23/19 00:00 97.9 F 87 14 141/95 H 94 L Date Exam was Performed: 12/23/19 Time Exam was Performed: 09:12 - Problem List & Annotations (1) UTI (urinary tract infection) SNOMED Code(s): 23817074 Code(s): N39.0 - URINARY TRACT INFECTION, SITE NOT SPECIFIED Status: Acute Current Visit: Yes (2) Alcohol abuse with intoxication SNOMED Code(s): 38246695 Code(s): F10.129 - ALCOHOL ABUSE WITH INTOXICATION, UNSPECIFIED Status: Acute Current Visit: Yes (3) Anemia SNOMED Code(s): 468831671 Code(s): D64.9 - ANEMIA, UNSPECIFIED Status: Acute Current Visit: Yes (4) Hypokalemia SNOMED Code(s): 07256549 Code(s): E87.6 - HYPOKALEMIA Status: Acute Current Visit: No Annotation /Comment:: (5) Abdominal pain SNOMED Code(s): 35469551 Code(s): R10.9 - UNSPECIFIED ABDOMINAL PAIN Status: Acute Current Visit: No (6) Alcohol withdrawal SNOMED Code(s): 614469483 Code(s): F10.239 - ALCOHOL DEPENDENCE WITH WITHDRAWAL, UNSPECIFIED Status: Acute Current Visit: No Qualifiers: Complication of substance-induced condition: with unspecified complication Qualified Code(s): F10.239 - Alcohol dependence with withdrawal, unspecified (7) Hypomagnesemia SNOMED Code(s): 575308077 Code(s): E83.42 - HYPOMAGNESEMIA Status: Acute Current Visit: No Annotation/Comment:: improving (8) Gastritis SNOMED Code(s): 6079211 Code(s): K29.70 - GASTRITIS, UNSPECIFIED, WITHOUT BLEEDING Status: Chronic Current Visit: No Qualifiers: Gastritis type: unspecified gastritis Chronicity: unspecified Gastritis bleeding: presence of bleeding unspecified Qualified Code(s): K29.70 - Gastritis, unspecified, without bleeding (9) H/O ETOH abuse SNOMED Code(s): 795863919 Code(s): Z87.898 - PERSONAL HISTORY OF OTHER SPECIFIED CONDITIONS Status: Chronic Current Visit: No - Problem List Review Problem List Initiated/Reviewed/Updated: Yes - My Orders Last 24 Hours: My Active Orders 12/22/19 09:45 Melatonin 3 mg PO BEDTIME PRN 12/22/19 10:00 Ciprofloxacin [Ciprofloxacin HCl] 500 mg PO BID 12/22/19 12:00 Magnesium Oxide 400 mg PO DAILY@1200 12/22/19 14:24 OCCULT BLOOD SCREEN [OP] Routine 12/22/19 21:00 Pantoprazole [ProTONIX IV] 40 mg IVPUSH Q12H 12/23/19 09:00 Potassium Chloride [Klor-Con M20] 20 meq PO BID - Plan Plan:: 1. IV fluids, soft diet. 2. CIWA protocol. 3. Ciprofloxacin 400 mg IV q12h, UC grew E. coli & Citrobacter, sensitive to Ciprofloxacin. 4. Potassium and Magnesium oral replacement, improving. Repeat labs tomorrow. 5. 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 She was admitted in April with similar situation, could not get emergency guardian so was discharged home after 2 weeks in hospital and returns in similar issues related to her alcoholism. If her brother could get guardianship would recommend [facility] home[facility] or committal to inpatient rehab for this patient.
[2019-12-23] MEDS: Sodium Chloride 0.9% 10 ML Syringe FLUSH PRN ×3 (09:22→10:06)
[2019-12-23] MEDS: Enoxaparin 30 MG/0.3 ML Syringe SUBCUT SCH (09:45)
[2019-12-23] MEDS: Sertraline 100 MG Tab PO SCH (09:46)
[2019-12-23] MEDS: Ciprofloxacin 500 MG Tab PO SCH (09:46)
[2019-12-23] MEDS: Thiamine 100 MG Tab PO SCH (09:46)
[2019-12-23] MEDS: Folic Acid 1 MG Tab PO SCH (09:46)
[2019-12-23] MEDS: Pantoprazole 40 MG Vial IVPUSH SCH ×2 (09:46→21:37)
--- NOTE | 2019-12-23 09:54 | PCM.SN.2 ---
- Free Text/Narrative Note: ANESTHESIA SERVICE Date: 12/23/2019 Time: 845 to 914 Dx: Poor Vascular Access Rx: Obtain Peripheral Vascular Access Procedure: Peripheral Venous Access Placement I was called to the hospital by the floor RN for placement of an IV. This patient has numerous attempts for access over her stay including several by an anesthesia provider. No COVID indications. My first two attempts [single insertions] with 22g IV's failed due to vein rupture when flushing. I did prep both sites with alcohol wipes and used a "freezing" spray. I did find a superficial vein on her right upper arm but it is small and torturous. I prepped the insertion area with 3 alcohol wipes thoroughly and applied the "freeze" spray again. Using a BD Insyte Autoguard BC Winged 24 Ga. X 0.75 In Needle X 1 attempt with a good venous blood return. I advanced the catheter and secured it. It was flushed with 20 ml's of normal saline easily without the vein rupturing. I applied an Op-Site dressing. The patient tolerated this procedure well. Thank you for using this service. Mirza Luz CRNA [facility]
[2019-12-23] MEDS: Potassium Chloride 20 MEQ Tab.ER PO SCH ×2 (09:58→21:36)
[2019-12-23] MEDS: Magnesium Oxide 400 MG Tab PO SCH (11:56)
[2019-12-23] MEDS: Multivitamin Tab PO SCH (11:57)
[2019-12-23] MEDS: Sodium Chloride 0.9% 1,000 ML IV SCH (13:26)
[2019-12-23] MEDS: Ciprofloxacin in D5W 400 MG in Premix Bag 1 BAG IV SCH ×2 (21:38)
[2019-12-24] MEDS: Sodium Chloride 0.9% 1,000 ML IV SCH (00:30)
[2019-12-24] MEDS: LORazepam 1 MG Tab PO SCH ×3 (03:40→11:38)
[2019-12-24] MEDS: Enoxaparin 30 MG/0.3 ML Syringe SUBCUT SCH (08:25)
[2019-12-24] MEDS: Thiamine 100 MG Tab PO SCH (08:25)
[2019-12-24] MEDS: Sertraline 100 MG Tab PO SCH (08:25)
[2019-12-24] MEDS: Folic Acid 1 MG Tab PO SCH (08:25)
[2019-12-24] MEDS: Sodium Chloride 0.9% 10 ML Syringe FLUSH PRN ×2 (08:28→17:38)
[2019-12-24] MEDS: Ciprofloxacin in D5W 400 MG in Premix Bag 1 BAG IV SCH ×2 (08:43)
[2019-12-24] MEDS: Pantoprazole 40 MG Vial IVPUSH SCH ×2 (09:11→20:02)
[2019-12-24] MEDS: Potassium Chloride 20 MEQ Tab.ER PO SCH ×2 (09:13→21:52)
--- NOTE | 2019-12-24 09:45 | PCM.PN ---
- General Info Date of Service: 12/24/19 Admission Dx/Problem (Free Text): Zuleika Lamb is up for breakfast this morning, eating better, still some confusion , CIWAA scores improving. Epigastric pain she's not sure if it is better or same , can't say if eating makes worse or not. Functional Status: Reports: Tolerating Diet, Urinating - Patient Data Vitals - Most Recent: Last Vital Signs Temp 97.6 F 12/24/19 03:55 Pulse 94 12/24/19 03:55 Resp 18 12/24/19 03:55 BP 156/94 H 12/24/19 03:55 Pulse Ox 97 12/24/19 03:55 Weight - Most Recent: 95 lb 2 oz I&O - Last 24 Hours: Intake & Output 12/23/19 12/24/19 12/24/19 22:59 06:59 14:59 Intake Total 850 1441 200 Output Total 150 450 Balance 700 1441 -250 Med Orders - Current: Current Medications Enoxaparin Sodium (Lovenox) 30 mg SUBCUT Q24H [facility] Last Admin: 12/24/19 08:25 Dose: 30 mg Folic Acid (Folic Acid) 1 mg PO DAILY [facility] Last Admin: 12/24/19 08:25 Dose: 1 mg Hydroxyzine HCl (Vistaril) 50 mg IM Q6H PRN PRN Reason: nausea/anxiety Sodium Chloride (Normal Saline) 250 mls @ 100 mls/hr IV ASDIRECTED [facility] Ciprofloxacin/Dextrose 400 mg/ (Premix) 200 mls @ 200 mls/hr IV BID [facility] Last Admin: 12/24/19 08:43 Dose: 200 mls/hr Sodium Chloride (Normal Saline) 1,000 mls @ 100 mls/hr IV ASDIRECTED [facility] Last Admin: 12/24/19 00:30 Dose: 100 mls/hr Lorazepam (Ativan) 0 mg PO ASDIRECTED [facility]; Protocol Last Admin: 12/24/19 08:43 Dose: 1 mg Magnesium Oxide (Magnesium Oxide) 400 mg PO DAILY@1200 [facility] Last Admin: 12/23/19 11:56 Dose: 400 mg Melatonin (Melatonin) 3 mg PO BEDTIME PRN PRN Reason: SLEEP Last Admin: 12/22/19 22:30 Dose: 3 mg Morphine Sulfate (Morphine) 2 mg IVPUSH Q4H PRN PRN Reason: Breakthrough Pain Last Admin: 12/22/19 01:11 Dose: 2 mg Multivitamins/Minerals/Vitamin C (Tab-A-Jocelin) 1 tab PO DAILY@1200 [facility] Last Admin: 12/23/19 11:57 Dose: 1 tab Pantoprazole Sodium (Protonix Iv) 40 mg IVPUSH Q12H [facility] Last Admin: 12/24/19 09:11 Dose: 40 mg Potassium Chloride (Klor-Con M20) 20 meq PO BID [facility] Last Admin: 12/24/19 09:13 Dose: 20 meq Sertraline HCl (Zoloft) 100 mg PO DAILY [facility] Last Admin: 12/24/19 08:25 Dose: 100 mg Sodium Chloride (Saline Flush) 10 ml FLUSH ASDIRECTED PRN PRN Reason: Keep Vein Open Last Admin: 12/24/19 08:28 Dose: 10 ml Thiamine HCl (Vitamin B-1) 100 mg PO DAILY [facility] Last Admin: 12/24/19 08:25 Dose: 100 mg Discontinued Medications Calcium Carbonate/Glycine (Tums) 500 mg PO Q48H [facility] Last Admin: 12/22/19 09:34 Dose: Not Given Ciprofloxacin (Ciprofloxacin Hcl) 500 mg PO BID [facility] Stop: 12/26/19 21:01 Last Admin: 12/23/19 09:46 Dose: 500 mg Enoxaparin Sodium (Lovenox) 30 mg SUBCUT Q24H [facility] Last Admin: 12/20/19 03:51 Dose: 30 mg Hydroxyzine HCl (Vistaril) 50 mg IM ONETIME ONE Stop: 12/20/19 01:46 Last Admin: 12/20/19 02:21 Dose: 50 mg Hydroxyzine HCl (Atarax) 25 mg PO BEDTIME PRN PRN Reason: Insomnia Last Admin: 12/21/19 23:51 Dose: 25 mg Dextrose/Sodium Chloride (Dextrose 5%-Normal Saline) 1,000 mls @ 1,000 mls/hr IV ASDIRECTED [facility] Last Admin: 12/20/19 01:20 Dose: 1,000 mls/hr Thiamine HCl 100 mg/ Sodium (Chloride) 101 mls @ 202 mls/hr IV ONETIME ONE Stop: 12/20/19 01:04 Last Admin: 12/20/19 02:03 Dose: 202 mls/hr Sodium Chloride (Normal Saline) 1,000 mls @ 150 mls/hr IV ASDIRECTED [facility] Last Admin: 12/20/19 12:00 Dose: 150 mls/hr Sodium Chloride (Normal Saline) 1,000 mls @ 100 mls/hr IV ASDIRECTED [facility] Last Admin: 12/21/19 01:08 Dose: 100 mls/hr Iopamidol (Isovue-370 (76%)) 100 ml IV . DIRECTED ONE Stop: 12/20/19 09:09 Last Admin: 12/20/19 10:06 Dose: 40 ml Lorazepam (Ativan) 1 mg IVPUSH NOW STA Stop: 12/20/19 03:21 Last Admin: 12/20/19 03:39 Dose: 1 mg Morphine Sulfate (Morphine) 4 mg IVPUSH Q4H PRN PRN Reason: Breakthrough Pain Multivitamins/Minerals/Vitamin C (Tab-A-Jocelin) 1 tab PO DAILY [facility] Last Admin: 12/22/19 08:46 Dose: 1 tab Non-Formulary Medication (Acamprosate [Campral]) 666 mg PO TID [facility] Last Admin: 12/20/19 12:27 Dose: Not Given Ondansetron HCl (Zofran Odt) 8 mg PO ONETIME ONE Stop: 12/20/19 00:58 Last Admin: 12/20/19 01:10 Dose: 8 mg Ondansetron HCl (Zofran) 4 mg IVPUSH Q4H PRN PRN Reason: Nausea/Vomiting Last Admin: 12/20/19 12:06 Dose: 4 mg Pantoprazole Sodium (Protonix Iv) 40 mg IV DAILY [facility] Last Admin: 12/22/19 08:46 Dose: 40 mg Pantoprazole Sodium (Protonix) 40 mg PO NOW ONE Stop: 12/22/19 23:01 Last Admin: 12/22/19 23:02 Dose: 40 mg Potassium Chloride (Klor-Con M20) 20 meq PO BID@1000,1200 [facility] Stop: 12/22/19 12:01 Last Admin: 12/22/19 12:07 Dose: 20 meq - Exam General: Alert, Oriented (to person), Cooperative, No Acute Distress Lungs: Clear to Auscultation, Normal Respiratory Effort Cardiovascular: Regular Rate, Regular Rhythm GI/Abdominal Exam: Normal Bowel Sounds, Soft, No Distention, Guarding, Tender ( epigastric). No: Rigid, Rebound Extremities: No Pedal Edema Peripheral Pulses: 2+: Radial (L), Radial (R) Sepsis Event Note - Evaluation Sepsis Screening Result: No Definite Risk - Focused Exam Vital Signs: Vital Signs Temp Pulse Resp BP Pulse Ox 12/24/19 03:55 97.6 F 94 18 156/94 H 97 12/24/19 00:00 16 Date Exam was Performed: 12/24/19 Time Exam was Performed: 09:40 - Problem List & Annotations (1) UTI (urinary tract infection) SNOMED Code(s): 96547380 Code(s): N39.0 - URINARY TRACT INFECTION, SITE NOT SPECIFIED Status: Acute Current Visit: Yes (2) Alcohol abuse with intoxication SNOMED Code(s): 41295969 Code(s): F10.129 - ALCOHOL ABUSE WITH INTOXICATION, UNSPECIFIED Status: Acute Current Visit: Yes (3) Anemia SNOMED Code(s): 248279929 Code(s): D64.9 - ANEMIA, UNSPECIFIED Status: Acute Current Visit: Yes (4) Hypokalemia SNOMED Code(s): 96478237 Code(s): E87.6 - HYPOKALEMIA Status: Acute Current Visit: No Annotation /Comment:: (5) Abdominal pain SNOMED Code(s): 72585145 Code(s): R10.9 - UNSPECIFIED ABDOMINAL PAIN Status: Acute Current Visit: No (6) Alcohol withdrawal SNOMED Code(s): 789238852 Code(s): F10.239 - ALCOHOL DEPENDENCE WITH WITHDRAWAL, UNSPECIFIED Status: Acute Current Visit: No Qualifiers: Complication of substance-induced condition: with unspecified complication Qualified Code(s): F10.239 - Alcohol dependence with withdrawal, unspecified (7) Hypomagnesemia SNOMED Code(s): 508952571 Code(s): E83.42 - HYPOMAGNESEMIA Status: Acute Current Visit: No Annotation/Comment:: improving (8) Gastritis SNOMED Code(s): 2092631 Code(s): K29.70 - GASTRITIS, UNSPECIFIED, WITHOUT BLEEDING Status: Chronic Current Visit: No Qualifiers: Gastritis type: unspecified gastritis Chronicity: unspecified Gastritis bleeding: presence of bleeding unspecified Qualified Code(s): K29.70 - Gastritis, unspecified, without bleeding (9) H/O ETOH abuse SNOMED Code(s): 360620228 Code(s): Z87.898 - PERSONAL HISTORY OF OTHER SPECIFIED CONDITIONS Status: Chronic Current Visit: No - Problem List Review Problem List Initiated/Reviewed/Updated: Yes - My Orders Last 24 Hours: My Active Orders 12/23/19 09:00 Potassium Chloride [Klor-Con M20] 20 meq PO BID 12/23/19 13:00 Sodium Chloride 0.9% [Normal Saline] 1,000 ml IV ASDIRECTED 12/23/19 21:00 Ciprofloxacin in D5W [Cipro in D5W 400 MG/200 ML] 400 mg Premix Bag 1 bag IV BID 12/25/19 06:00 BASIC METABOLIC PANEL,BMP [CHEM] Routine - Plan Plan:: 1. IV fluids, soft diet, add Carafate 1 g ac & hs for gastritis. 2. CIWA protocol. 3. Ciprofloxacin 400 mg IV q12h, day 3. 4. Potassium and Magnesium oral replacement, improving. Repeat labs tomorrow. 5. 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 If her brother could get guardianship would recommend [place] home/shelter or committal to inpatient rehab for this patient.
[2019-12-24] MEDS: Multivitamin Tab PO SCH (11:39)
[2019-12-24] MEDS: Magnesium Oxide 400 MG Tab PO SCH (11:39)
[2019-12-24] MEDS: Sucralfate 1 GM Tab PO SCH ×3 (11:39→21:51)
[2019-12-24] MEDS ORDERED: Bisacodyl 5 MG Tab PO PRN (17:12)
[2019-12-24] MEDS: Pantoprazole 40 MG Tab.CR PO SCH (18:24)
[2019-12-24] MEDS: Polyethylene Glycol 3350 Powder 17 GM Packet PO SCH (18:24)
[2019-12-24] MEDS: Ibuprofen 400 MG Tab PO PRN (18:24)
[2019-12-24] MEDS: Ciprofloxacin 500 MG Tab PO SCH (21:52)
[2019-12-25] MEDS: Sucralfate 1 GM Tab PO SCH ×4 (07:37→20:11)
[2019-12-25] MEDS: Pantoprazole 40 MG Tab.CR PO SCH ×2 (07:37→17:17)
[2019-12-25] MEDS: Enoxaparin 30 MG/0.3 ML Syringe SUBCUT SCH (07:38)
[2019-12-25] MEDS ORDERED: Metoprolol Succinate 25 MG Tab.ER PO SCH (09:00)
[2019-12-25] MEDS: Folic Acid 1 MG Tab PO SCH (09:12)
[2019-12-25] MEDS: Polyethylene Glycol 3350 Powder 17 GM Packet PO SCH (09:12)
[2019-12-25] MEDS: Potassium Chloride 20 MEQ Tab.ER PO SCH ×2 (09:12→20:12)
[2019-12-25] MEDS: Ciprofloxacin 500 MG Tab PO SCH ×2 (09:12→20:10)
[2019-12-25] MEDS: Thiamine 100 MG Tab PO SCH (09:12)
[2019-12-25] MEDS: Pantoprazole 40 MG Vial IVPUSH SCH (09:13)
[2019-12-25] MEDS: Sertraline 100 MG Tab PO SCH (09:13)
--- NOTE | 2019-12-25 11:14 | PCM.PN ---
- General Info Date of Service: 12/25/19 Admission Dx/Problem (Free Text): Zuleika Lamb is more alert today, oriented to person but not place or time. Some tangential thinking present. Still having epigastric pain but can't tell me if better or worse. Had amylase on admission which was normal. Has not had bowel movement but passing gas. No nausea or vomiting. No shortness of breath. Functional Status: Reports: Pain Controlled, Tolerating Diet, Urinating - Patient Data Vitals - Most Recent: Last Vital Signs Temp 98 F 12/25/19 07:36 Pulse 99 12/25/19 10:13 Resp 14 12/25/19 07:36 BP 170/101 H 12/25/19 10:13 Pulse Ox 95 12/25/19 07:36 Weight - Most Recent: 95 lb 2 oz I&O - Last 24 Hours: Intake & Output 12/24/19 12/25/19 12/25/19 22:59 06:59 14:59 Intake Total 240 400 400 Output Total 150 Balance 240 400 250 Lab Results Last 24 Hours: Laboratory Results - last 24 hr 12/25/19 Range/Units 06:45 Sodium 142 (135-145) mmol/L Potassium 3.5 (3.5-5.3) mmol/L Chloride 109 D (100-110) mmol/L Carbon Dioxide 27 (21-32) mmol/L BUN 6 L (7-18) mg/dL Creatinine 0.6 (0.55-1.02) mg/dL Est Cr Clr Drug Dosing 63.67 mL/min Estimated GFR (MDRD) > 60 (>60) BUN/Creatinine Ratio 10.0 (9-20) Glucose 88 (80-116) mg/dL Calcium 8.0 L (8.6-10.2) mg/dL Med Orders - Current: Current Medications Bisacodyl (Dulcolax) 5 mg PO DAILY PRN PRN Reason: Constipation Last Admin: 12/24/19 18:24 Dose: 5 mg Ciprofloxacin (Ciprofloxacin Hcl) 500 mg PO BID [facility] Stop: 12/26/19 23:59 Last Admin: 12/25/19 09:12 Dose: 500 mg Enoxaparin Sodium (Lovenox) 30 mg SUBCUT Q24H [facility] Last Admin: 12/25/19 07:38 Dose: 30 mg Folic Acid (Folic Acid) 1 mg PO DAILY [facility] Last Admin: 12/25/19 09:12 Dose: 1 mg Ibuprofen (Motrin) 400 mg PO Q6H PRN PRN Reason: Headache Last Admin: 12/24/19 18:24 Dose: 400 mg Lorazepam (Ativan) 0 mg PO ASDIRECTED [facility]; Protocol Last Admin: 12/24/19 11:38 Dose: 1 mg Magnesium Oxide (Magnesium Oxide) 400 mg PO DAILY@1200 [facility] Last Admin: 12/24/19 11:39 Dose: 400 mg Melatonin (Melatonin) 3 mg PO BEDTIME PRN PRN Reason: SLEEP Last Admin: 12/22/19 22:30 Dose: 3 mg Metoprolol Succinate (Toprol Xl) 12.5 mg PO DAILY [facility] Last Admin: 12/25/19 10:13 Dose: 12.5 mg Multivitamins/Minerals/Vitamin C (Tab-A-Jocelin) 1 tab PO DAILY@1200 [facility] Last Admin: 12/24/19 11:39 Dose: 1 tab Pantoprazole Sodium (Protonix) 40 mg PO BIDAC [facility] Last Admin: 12/25/19 07:37 Dose: 40 mg Polyethylene Glycol (Miralax) 17 gm PO DAILY [facility] Last Admin: 12/25/19 09:12 Dose: 17 gm Potassium Chloride (Klor-Con M20) 20 meq PO BID [facility] Last Admin: 12/25/19 09:12 Dose: 20 meq Sertraline HCl (Zoloft) 100 mg PO DAILY [facility] Last Admin: 12/25/19 09:13 Dose: 100 mg Sucralfate (Carafate) 1 gm PO QIDACANDBED [facility] Last Admin: 12/25/19 07:37 Dose: 1 gm Thiamine HCl (Vitamin B-1) 100 mg PO DAILY [facility] Last Admin: 12/25/19 09:12 Dose: 100 mg Discontinued Medications Calcium Carbonate/Glycine (Tums) 500 mg PO Q48H [facility] Last Admin: 12/22/19 09:34 Dose: Not Given Ciprofloxacin (Ciprofloxacin Hcl) 500 mg PO BID [facility] Stop: 12/26/19 21:01 Last Admin: 12/23/19 09:46 Dose: 500 mg Enoxaparin Sodium (Lovenox) 30 mg SUBCUT Q24H [facility] Last Admin: 12/20/19 03:51 Dose: 30 mg Hydroxyzine HCl (Vistaril) 50 mg IM ONETIME ONE Stop: 12/20/19 01:46 Last Admin: 12/20/19 02:21 Dose: 50 mg Hydroxyzine HCl (Vistaril) 50 mg IM Q6H PRN PRN Reason: nausea/anxiety Hydroxyzine HCl (Atarax) 25 mg PO BEDTIME PRN PRN Reason: Insomnia Last Admin: 12/21/19 23:51 Dose: 25 mg Dextrose/Sodium Chloride (Dextrose 5%-Normal Saline) 1,000 mls @ 1,000 mls/hr IV ASDIRECTED [facility] Last Admin: 12/20/19 01:20 Dose: 1,000 mls/hr Thiamine HCl 100 mg/ Sodium (Chloride) 101 mls @ 202 mls/hr IV ONETIME ONE Stop: 12/20/19 01:04 Last Admin: 12/20/19 02:03 Dose: 202 mls/hr Sodium Chloride (Normal Saline) 1,000 mls @ 150 mls/hr IV ASDIRECTED [facility] Last Admin: 12/20/19 12:00 Dose: 150 mls/hr Sodium Chloride (Normal Saline) 1,000 mls @ 100 mls/hr IV ASDIRECTED [facility] Last Admin: 12/21/19 01:08 Dose: 100 mls/hr Sodium Chloride (Normal Saline) 250 mls @ 100 mls/hr IV ASDIRECTED [facility] Ciprofloxacin/Dextrose 400 mg/ (Premix) 200 mls @ 200 mls/hr IV BID [facility] Last Admin: 12/24/19 08:43 Dose: 200 mls/hr Sodium Chloride (Normal Saline) 1,000 mls @ 100 mls/hr IV ASDIRECTED [facility] Last Admin: 12/24/19 00:30 Dose: 100 mls/hr Iopamidol (Isovue-370 (76%)) 100 ml IV . DIRECTED ONE Stop: 12/20/19 09:09 Last Admin: 12/20/19 10:06 Dose: 40 ml Lorazepam (Ativan) 1 mg IVPUSH NOW STA Stop: 12/20/19 03:21 Last Admin: 12/20/19 03:39 Dose: 1 mg Morphine Sulfate (Morphine) 4 mg IVPUSH Q4H PRN PRN Reason: Breakthrough Pain Morphine Sulfate (Morphine) 2 mg IVPUSH Q4H PRN PRN Reason: Breakthrough Pain Last Admin: 12/22/19 01:11 Dose: 2 mg Multivitamins/Minerals/Vitamin C (Tab-A-Jocelin) 1 tab PO DAILY [facility] Last Admin: 12/22/19 08:46 Dose: 1 tab Non-Formulary Medication (Acamprosate [Campral]) 666 mg PO TID [facility] Last Admin: 12/20/19 12:27 Dose: Not Given Ondansetron HCl (Zofran Odt) 8 mg PO ONETIME ONE Stop: 12/20/19 00:58 Last Admin: 12/20/19 01:10 Dose: 8 mg Ondansetron HCl (Zofran) 4 mg IVPUSH Q4H PRN PRN Reason: Nausea/Vomiting Last Admin: 12/20/19 12:06 Dose: 4 mg Pantoprazole Sodium (Protonix Iv) 40 mg IV DAILY [facility] Last Admin: 12/22/19 08:46 Dose: 40 mg Pantoprazole Sodium (Protonix Iv) 40 mg IVPUSH Q12H [facility] Last Admin: 12/25/19 09:13 Dose: Not Given Pantoprazole Sodium (Protonix) 40 mg PO NOW ONE Stop: 12/22/19 23:01 Last Admin: 12/22/19 23:02 Dose: 40 mg Potassium Chloride (Klor-Con M20) 20 meq PO BID@1000,1200 [facility] Stop: 12/22/19 12:01 Last Admin: 12/22/19 12:07 Dose: 20 meq Sodium Chloride (Saline Flush) 10 ml FLUSH ASDIRECTED PRN PRN Reason: Keep Vein Open Last Admin: 12/24/19 17:38 Dose: 10 ml - Exam General: Alert (person, but not place or time), Cooperative, No Acute Distress Lungs: Clear to Auscultation, Normal Respiratory Effort Cardiovascular: Regular Rate, Regular Rhythm GI/Abdominal Exam: Normal Bowel Sounds, Soft, No Distention, Tender (Epigastric) . No: Guarding, Rigid Extremities: No Pedal Edema Peripheral Pulses: 2+: Radial (L), Radial (R) Psy/Mental Status: Other (flat affect). No: Hallucinations, Withdrawal Symptoms Sepsis Event Note - Evaluation Sepsis Screening Result: No Definite Risk - Focused Exam Vital Signs: Vital Signs Temp Pulse Pulse Resp BP BP Pulse Ox 12/25/19 10:13 99 170/101 H 12/25/19 07:36 98 F 99 14 170/101 H 95 12/25/19 00:00 98 F 90 18 156/88 H 96 Date Exam was Performed: 12/25/19 Time Exam was Performed: 11:05 - Problem List & Annotations (1) UTI (urinary tract infection) SNOMED Code(s): 66142266 Code(s): N39.0 - URINARY TRACT INFECTION, SITE NOT SPECIFIED Status: Acute Current Visit: Yes (2) Alcohol abuse with intoxication SNOMED Code(s): 24372536 Code(s): F10.129 - ALCOHOL ABUSE WITH INTOXICATION, UNSPECIFIED Status: Acute Current Visit: Yes (3) Anemia SNOMED Code(s): 258740516 Code(s): D64.9 - ANEMIA, UNSPECIFIED Status: Acute Current Visit: Yes (4) Hypokalemia SNOMED Code(s): 91345934 Code(s): E87.6 - HYPOKALEMIA Status: Resolved Current Visit: No Annotation/Comment:: (5) Abdominal pain SNOMED Code(s): 15270230 Code(s): R10.9 - UNSPECIFIED ABDOMINAL PAIN Status: Acute Current Visit: No (6) Alcohol withdrawal SNOMED Code(s): 392972402 Code(s): F10.239 - ALCOHOL DEPENDENCE WITH WITHDRAWAL, UNSPECIFIED Status: Acute Current Visit: No Qualifiers: Complication of substance-induced condition: with unspecified complication Qualified Code(s): F10.239 - Alcohol dependence with withdrawal, unspecified (7) Hypomagnesemia SNOMED Code(s): 787902672 Code(s): E83.42 - HYPOMAGNESEMIA Status: Resolved Current Visit: No Annotation/Comment:: improving (8) Gastritis SNOMED Code(s): 4764493 Code(s): K29.70 - GASTRITIS, UNSPECIFIED, WITHOUT BLEEDING Status: Chronic Current Visit: No Qualifiers: Gastritis type: unspecified gastritis Chronicity: unspecified Gastritis bleeding: presence of bleeding unspecified Qualified Code(s): K29.70 - Gastritis, unspecified, without bleeding (9) H/O ETOH abuse SNOMED Code(s): 118300495 Code(s): Z87.898 - PERSONAL HISTORY OF OTHER SPECIFIED CONDITIONS Status: Chronic Current Visit: No - Problem List Review Problem List Initiated/Reviewed/Updated: Yes - My Orders Last 24 Hours: My Active Orders 12/24/19 11:30 Sucralfate [Carafate] 1 gm PO QIDACANDBED 12/24/19 11:48 Ibuprofen [Motrin] 400 mg PO Q6H PRN 12/24/19 17:12 bisacodyL [Dulcolax] 5 mg PO DAILY PRN 12/24/19 17:15 polyethylene glycoL 3350 [MiraLAX] 17 gm PO DAILY 12/24/19 18:00 Pantoprazole [ProTONIX] 40 mg PO BIDAC 12/24/19 21:00 Ciprofloxacin [Ciprofloxacin HCl] 500 mg PO BID 12/25/19 08:09 OT Evaluation and Treatment [CONS] Routine PT Evaluation and Treatment [CONS] Routine 12/25/19 09:00 Metoprolol Succinate [Toprol XL] 12.5 mg PO DAILY - Plan Plan:: 1. Soft diet, Protonix 40 mg oral bid, Carafate 1 g ac & hs for gastritis. 2. CIWA protocol, has not required Ativan since yesterday morning. 3. UTI:Ciprofloxacin 500 mg po q12h, day 4. 4. Blood pressure still elevated with discontinuation of IVF, start Metoprolol 12.5 mg daily. Adjust as needed. 5. TelePsych consult with Dr Bobby yarbrough, scheduled for 1600 today. Patient is able to make simple decisions but concern for executive/complex functions, inability to meet her personal needs for medical care, nutrition, nursing home & safety. She is being treated for depression with Zoloft, concern that she is self-medicating with alcohol, also may be underlying PTSD.
[2019-12-25] MEDS: Multivitamin Tab PO SCH (11:16)
[2019-12-25] MEDS: Magnesium Oxide 400 MG Tab PO SCH (11:16)
[2019-12-25] MEDS: Ibuprofen 400 MG Tab PO PRN (20:16)
[2019-12-25] MEDS: LORazepam 1 MG Tab PO SCH (20:17)
[2019-12-25] MEDS: Melatonin 3 MG Tab PO PRN (20:18)
[2019-12-25] MEDS: Mirtazapine 30 MG Tab PO SCH (20:28)
[2019-12-25] MEDS: Topiramate 50 MG Tab PO SCH (20:29)
[2019-12-26] MEDS: Potassium Chloride 20 MEQ Tab.ER PO SCH ×2 (08:25→20:51)
[2019-12-26] MEDS: Metoprolol Succinate 25 MG Tab.ER PO SCH (08:25)
[2019-12-26] MEDS: Pantoprazole 40 MG Tab.CR PO SCH ×2 (08:25→18:01)
[2019-12-26] MEDS: Sucralfate 1 GM Tab PO SCH ×4 (08:25→20:50)
[2019-12-26] MEDS: Folic Acid 1 MG Tab PO SCH (08:26)
[2019-12-26] MEDS: Enoxaparin 30 MG/0.3 ML Syringe SUBCUT SCH (08:26)
[2019-12-26] MEDS: Polyethylene Glycol 3350 Powder 17 GM Packet PO SCH (08:26)
[2019-12-26] MEDS: Thiamine 100 MG Tab PO SCH (08:26)
[2019-12-26] MEDS: Ciprofloxacin 500 MG Tab PO SCH ×2 (08:26→20:51)
[2019-12-26] MEDS: Sertraline 100 MG Tab PO SCH (08:26)
[2019-12-26] MEDS: Topiramate 50 MG Tab PO SCH ×2 (08:27→20:52)
--- NOTE | 2019-12-26 08:50 | PCM.PN ---
- General Info Date of Service: 12/26/19 Admission Dx/Problem (Free Text): Slept well last night, states abdominal pain is the same. PT will work with her today for strengthening but does not met criteria for swing bed placement. No nausea or vomiting. No diarrhea. Needs assistance to bathroom. - Patient Data Vitals - Most Recent: Last Vital Signs Temp 98 F 12/26/19 08:00 Pulse 96 12/26/19 08:25 Resp 14 12/26/19 08:00 BP 149/91 H 12/26/19 08:25 Pulse Ox 96 12/26/19 08:00 Weight - Most Recent: 95 lb 2 oz I&O - Last 24 Hours: Intake & Output 12/25/19 12/26/19 12/26/19 22:59 06:59 14:59 Intake Total 300 Output Total 550 Balance -250 Med Orders - Current: Current Medications Bisacodyl (Dulcolax) 5 mg PO DAILY PRN PRN Reason: Constipation Last Admin: 12/24/19 18:24 Dose: 5 mg Ciprofloxacin (Ciprofloxacin Hcl) 500 mg PO BID [facility] Stop: 12/26/19 23:59 Last Admin: 12/26/19 08:26 Dose: 500 mg Enoxaparin Sodium (Lovenox) 30 mg SUBCUT Q24H [facility] Last Admin: 12/26/19 08:26 Dose: 30 mg Folic Acid (Folic Acid) 1 mg PO DAILY [facility] Last Admin: 12/26/19 08:26 Dose: 1 mg Ibuprofen (Motrin) 400 mg PO Q6H PRN PRN Reason: Headache Last Admin: 12/25/19 20:16 Dose: 400 mg Lorazepam (Ativan) 0 mg PO ASDIRECTED [facility]; Protocol Last Admin: 12/25/19 20:17 Dose: 1 mg Magnesium Oxide (Magnesium Oxide) 400 mg PO DAILY@1200 [facility] Last Admin: 12/25/19 11:16 Dose: 400 mg Melatonin (Melatonin) 3 mg PO BEDTIME PRN PRN Reason: SLEEP Last Admin: 12/25/19 20:18 Dose: 3 mg Metoprolol Succinate (Toprol Xl) 25 mg PO DAILY [facility] Last Admin: 12/26/19 08:25 Dose: 25 mg Mirtazapine (Remeron) 30 mg PO BEDTIME [facility] Last Admin: 12/25/19 20:28 Dose: 30 mg Multivitamins/Minerals/Vitamin C (Tab-A-Jocelin) 1 tab PO DAILY@1200 [facility] Last Admin: 12/25/19 11:16 Dose: 1 tab Pantoprazole Sodium (Protonix) 40 mg PO BIDAC [facility] Last Admin: 12/26/19 08:25 Dose: 40 mg Polyethylene Glycol (Miralax) 17 gm PO DAILY [facility] Last Admin: 12/26/19 08:26 Dose: Not Given Potassium Chloride (Klor-Con M20) 20 meq PO BID [facility] Last Admin: 12/26/19 08:25 Dose: 20 meq Sertraline HCl (Zoloft) 100 mg PO DAILY [facility] Last Admin: 12/26/19 08:26 Dose: 100 mg Sucralfate (Carafate) 1 gm PO QIDACANDBED [facility] Last Admin: 12/26/19 08:25 Dose: 1 gm Thiamine HCl (Vitamin B-1) 100 mg PO DAILY [facility] Last Admin: 12/26/19 08:26 Dose: 100 mg Topiramate (Topamax) 25 mg PO BID [facility] Last Admin: 12/26/19 08:27 Dose: 25 mg Discontinued Medications Calcium Carbonate/Glycine (Tums) 500 mg PO Q48H [facility] Last Admin: 12/22/19 09:34 Dose: Not Given Ciprofloxacin (Ciprofloxacin Hcl) 500 mg PO BID [facility] Stop: 12/26/19 21:01 Last Admin: 12/23/19 09:46 Dose: 500 mg Enoxaparin Sodium (Lovenox) 30 mg SUBCUT Q24H [facility] Last Admin: 12/20/19 03:51 Dose: 30 mg Hydroxyzine HCl (Vistaril) 50 mg IM ONETIME ONE Stop: 12/20/19 01:46 Last Admin: 12/20/19 02:21 Dose: 50 mg Hydroxyzine HCl (Vistaril) 50 mg IM Q6H PRN PRN Reason: nausea/anxiety Hydroxyzine HCl (Atarax) 25 mg PO BEDTIME PRN PRN Reason: Insomnia Last Admin: 12/21/19 23:51 Dose: 25 mg Dextrose/Sodium Chloride (Dextrose 5%-Normal Saline) 1,000 mls @ 1,000 mls/hr IV ASDIRECTED [facility] Last Admin: 12/20/19 01:20 Dose: 1,000 mls/hr Thiamine HCl 100 mg/ Sodium (Chloride) 101 mls @ 202 mls/hr IV ONETIME ONE Stop: 12/20/19 01:04 Last Admin: 12/20/19 02:03 Dose: 202 mls/hr Sodium Chloride (Normal Saline) 1,000 mls @ 150 mls/hr IV ASDIRECTED [facility] Last Admin: 12/20/19 12:00 Dose: 150 mls/hr Sodium Chloride (Normal Saline) 1,000 mls @ 100 mls/hr IV ASDIRECTED [facility] Last Admin: 12/21/19 01:08 Dose: 100 mls/hr Sodium Chloride (Normal Saline) 250 mls @ 100 mls/hr IV ASDIRECTED [facility] Ciprofloxacin/Dextrose 400 mg/ (Premix) 200 mls @ 200 mls/hr IV BID [facility] Last Admin: 12/24/19 08:43 Dose: 200 mls/hr Sodium Chloride (Normal Saline) 1,000 mls @ 100 mls/hr IV ASDIRECTED [facility] Last Admin: 12/24/19 00:30 Dose: 100 mls/hr Iopamidol (Isovue-370 (76%)) 100 ml IV . DIRECTED ONE Stop: 12/20/19 09:09 Last Admin: 12/20/19 10:06 Dose: 40 ml Lorazepam (Ativan) 1 mg IVPUSH NOW STA Stop: 12/20/19 03:21 Last Admin: 12/20/19 03:39 Dose: 1 mg Metoprolol Succinate (Toprol Xl) 12.5 mg PO DAILY [facility] Last Admin: 12/25/19 10:13 Dose: 12.5 mg Morphine Sulfate (Morphine) 4 mg IVPUSH Q4H PRN PRN Reason: Breakthrough Pain Morphine Sulfate (Morphine) 2 mg IVPUSH Q4H PRN PRN Reason: Breakthrough Pain Last Admin: 12/22/19 01:11 Dose: 2 mg Multivitamins/Minerals/Vitamin C (Tab-A-Jocelin) 1 tab PO DAILY [facility] Last Admin: 12/22/19 08:46 Dose: 1 tab Non-Formulary Medication (Acamprosate [Campral]) 666 mg PO TID [facility] Last Admin: 12/20/19 12:27 Dose: Not Given Ondansetron HCl (Zofran Odt) 8 mg PO ONETIME ONE Stop: 12/20/19 00:58 Last Admin: 12/20/19 01:10 Dose: 8 mg Ondansetron HCl (Zofran) 4 mg IVPUSH Q4H PRN PRN Reason: Nausea/Vomiting Last Admin: 12/20/19 12:06 Dose: 4 mg Pantoprazole Sodium (Protonix Iv) 40 mg IV DAILY [facility] Last Admin: 12/22/19 08:46 Dose: 40 mg Pantoprazole Sodium (Protonix Iv) 40 mg IVPUSH Q12H [facility] Last Admin: 12/25/19 09:13 Dose: Not Given Pantoprazole Sodium (Protonix) 40 mg PO NOW ONE Stop: 12/22/19 23:01 Last Admin: 12/22/19 23:02 Dose: 40 mg Potassium Chloride (Klor-Con M20) 20 meq PO BID@1000,1200 [facility] Stop: 12/22/19 12:01 Last Admin: 12/22/19 12:07 Dose: 20 meq Sodium Chloride (Saline Flush) 10 ml FLUSH ASDIRECTED PRN PRN Reason: Keep Vein Open Last Admin: 12/24/19 17:38 Dose: 10 ml - Exam General: Alert, Cooperative, No Acute Distress Lungs: Clear to Auscultation, Normal Respiratory Effort Cardiovascular: Regular Rate, Regular Rhythm GI/Abdominal Exam: Normal Bowel Sounds, Soft, No Distention, Guarding, Tender ( epigastric). No: Rigid, Rebound Sepsis Event Note - Evaluation Sepsis Screening Result: No Definite Risk - Focused Exam Vital Signs: Vital Signs Temp Pulse Pulse Resp BP BP Pulse Ox 12/26/19 08:25 96 149/91 H 12/26/19 08:00 98 F 96 14 149/91 H 96 12/26/19 04:15 91 16 144/75 H 95 12/26/19 00:00 16 Date Exam was Performed: 12/26/19 Time Exam was Performed: 08:46 - Problem List & Annotations (1) UTI (urinary tract infection) SNOMED Code(s): 59576215 Code(s): N39.0 - URINARY TRACT INFECTION, SITE NOT SPECIFIED Status: Acute Current Visit: Yes (2) Alcohol abuse with intoxication SNOMED Code(s): 84987892 Code(s): F10.129 - ALCOHOL ABUSE WITH INTOXICATION, UNSPECIFIED Status: Acute Current Visit: Yes (3) Anemia SNOMED Code(s): 789193991 Code(s): D64.9 - ANEMIA, UNSPECIFIED Status: Acute Current Visit: Yes (4) Hypokalemia SNOMED Code(s): 35583059 Code(s): E87.6 - HYPOKALEMIA Status: Resolved Current Visit: No Annotation/Comment:: (5) Abdominal pain SNOMED Code(s): 75540712 Code(s): R10.9 - UNSPECIFIED ABDOMINAL PAIN Status: Acute Current Visit: No (6) Alcohol withdrawal SNOMED Code(s): 757321975 Code(s): F10.239 - ALCOHOL DEPENDENCE WITH WITHDRAWAL, UNSPECIFIED Status: Acute Current Visit: No Qualifiers: Complication of substance-induced condition: with unspecified complication Qualified Code(s): F10.239 - Alcohol dependence with withdrawal, unspecified (7) Hypomagnesemia SNOMED Code(s): 378794664 Code(s): E83.42 - HYPOMAGNESEMIA Status: Resolved Current Visit: No Annotation/Comment:: improving (8) Gastritis SNOMED Code(s): 6114440 Code(s): K29.70 - GASTRITIS, UNSPECIFIED, WITHOUT BLEEDING Status: Chronic Current Visit: No Qualifiers: Gastritis type: unspecified gastritis Chronicity: unspecified Gastritis bleeding: presence of bleeding unspecified Qualified Code(s): K29.70 - Gastritis, unspecified, without bleeding (9) H/O ETOH abuse SNOMED Code(s): 829006000 Code(s): Z87.898 - PERSONAL HISTORY OF OTHER SPECIFIED CONDITIONS Status: Chronic Current Visit: No - Problem List Review Problem List Initiated/Reviewed/Updated: Yes - My Orders Last 24 Hours: My Active Orders 12/25/19 08:09 OT Evaluation and Treatment [CONS] Routine PT Evaluation and Treatment [CONS] Routine 12/25/19 15:31 Consult to Physician [CONS] Routine 12/25/19 15:32 Notify Provider Consults [RC] ASDIRECTED 12/25/19 21:00 Mirtazapine [Remeron] 30 mg PO BEDTIME Topiramate [Topamax] 25 mg PO BID 12/26/19 09:00 Metoprolol Succinate [Toprol XL] 25 mg PO DAILY - Plan Plan:: 1. UTI:Ciprofloxacin 500 mg po q12h, day 5. 2. Monitor blood pressure, increased dose Metoprolol 25 mg daily. Adjust as needed. 3. TelePsych consult with Dr Rosales made, recommended inpatient structured chemical dependence treatment, added Remeron 30 mg at bedtime and Topiramate 25 mg bid. Currently she is in agreement with treatment, Dr Rosales advised that if she decided not to go, then he would recommend committal.
[2019-12-26] MEDS: Ibuprofen 400 MG Tab PO PRN ×2 (11:12→20:52)
[2019-12-26] MEDS: Multivitamin Tab PO SCH (11:13)
[2019-12-26] MEDS: Magnesium Oxide 400 MG Tab PO SCH (11:13)
--- NOTE | 2019-12-26 15:54 | CONS ---
DATE OF CONSULTATION: 12/25/2019 A 60-minute inpatient clinical event. Site where the services are provided is [facility] in [place], [place]. Site where the services are provided from our offices in [facility]. Length of service for the 60-minute inpatient telemedicine event is 60 minutes. IDENTIFICATION: The patient is a 64-year-old female who is admitted to the inpatient med/surg unit at [facility] in [place], [place]. She is seen for psychiatric consultation per the request of staff attending, Dr. Oconnell, and her treatment team. CHIEF COMPLAINT: "I went out and got drunk and I got more drunk and then I got sick." HISTORY OF PRESENT ILLNESS: The patient is a 64-year-old female who is admitted to the inpatient med/surg unit at [facility] on December 20, 2019, secondary to complications from excessive alcohol use and withdrawal. The patient had a BAL of 1.6 on admission. She was malnourished. She has gone through withdrawals and the treatment team is monitoring for DTs at this point in time. The patient is being assessed for depression and possible PTSD. Staff is reporting that the patient "drinks with a vengeance" and the patient does state that she has been drinking quite heavily on a binge basis lately. She states that her memory has been "not so hot", although she is alert and oriented x3 this afternoon. She does endorse symptoms of depression and anxiety, and she states her sleep is "not so good," describing her sleep pattern as only "a couple of hours a night." She states that, for her, the depression and anxiety are pretty bad, and she would like to get treated and she states "I desperately really want to quit" drinking. She states she has been in treatment in the past and expresses skepticism about the efficacy of treatment for her particular situation, although she does note that she had about 6-1/2 years of sobriety back in the s. The patient denies any other illicit substance use complicating the clinical picture. She denies that she is suicidal or homicidal. She denies any psychotic, delusional, or paranoid symptoms. She states she had a trial of Paxil in the past, and this did work for her, but then it stopped working. She has tried other antidepressants, but she could not remember what they were. Her appetite is fluctuating on account of the heavy drinking, which seems to upset her GI system. She also drinks about 1 pot of coffee a day and stays well hydrated. MEDICATIONS AT THE TIME OF PRESENTATION: Staff is reporting that patient had a prescription for Zoloft from home, but it has not been given on the unit. ALLERGIES: Sulfa. PAST MEDICAL HISTORY: 1. Signs and symptoms of alcohol withdrawal. 2. Possible GI bleed. REVIEW OF SYSTEMS: Aside from neuro and GI, all other major organ systems appeared negative at this point in time for acute difficulties or complications. FAMILY PSYCHIATRIC AND CD HISTORY: None reported. PAST PSYCHIATRIC AND CD HISTORY: The patient denies any previous psychiatric hospitalizations. She is reporting about 5 to 6 CD treatments in the past. This is at least her second admission to Dr. Oconnell's service since April of 2019. The patient states that she understands her circumstances, but patient denies any previous suicide attempts or self-injurious behaviors. She has been to AA in the past and it has helped her. PAST PSYCHIATRIC MEDICATION HISTORY: Include Paxil, which worked and then stopped. SOCIAL HISTORY: The patient was born in [facility], raised in [place], [place]. She is the 2nd of 4 siblings, having 2 brothers and 1 sister. The patient parents were throughout her childhood and adolescence. Father was an roast master, an eye doctor, mother was an RN. The patient's highest level of education is a masters in [employer] Literature. 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 She has never been , not involved in any current relationship. She had been in a long-term relationship for quite a while, but her last partner in 2005. She denies any pregnancies or biological children. She lives in [place] by herself. Denies any prior service. She is [place] in terms of her adelaide formation. She enjoys doing crossword puzzles in her spare time. MENTAL STATUS EXAMINATION: The patient is a 64-year-old soft-spoken white female in no apparent distress. Heart is regular in rate and rhythm. Patient is cognitively oriented x3. Psychomotor activity is within normal limits. There are no abnormal motor movements or tics observed. Gait and station are not observed, as the patient is seated in the inpatient consult. Mood is depressed and anxious. Affect is consistent with stated mood, cooperative, but somewhat restricted. There is no behavioral or stated evidence of acute suicidal or homicidal ideation. No acute psychotic, delusional, or paranoid symptoms. Thought process is significant, perhaps some mild thought blocking, but appear organized overall. There are no manic symptoms or loose associations evident. Judgement and insight into the severity of her chemical dependency issues appears somewhat poor, but motivation for help appears fair to good. VITALS AT THE TIME OF PRESENTATION: 170/101, 99, 14, and 98 degrees. IMPRESSION: [place] I: 1. Alcohol dependence, F10.20. 2. Major depressive disorder, recurrent, F33.2. 3. Anxiety disorder, NOS. [place] II: None. [place] III: 1. Signs and symptoms of alcohol withdrawal. 2. Possible GI bleed, currently being worked up. [place] IV: Severe. [place] V: 55 to 60. PLAN: 1. Discontinue Zoloft. 2. Begin trial of Remeron 30 mg at bedtime to help with symptoms of depression, as well as for sleep initiation, maintenance, and appetite stimulation. 3. Begin trial of Topamax 25 mg b.i.d. for mood stability and anxiety reduction. 4. Sobriety. 5. AA rep to visit patient while on unit. 6. Recommend inpatient CD treatment on either a voluntary or committal basis, when patient is medically stabilized and ready for transfer off the med/surg unit. 7. Patient is apprised of benefits and side effects of her newly initiated psychiatric medication regimen, and she acknowledges understanding. She had no further questions by the end of the interview session. 8. I do recommend that, if patient tries to leave [facility], that petition commitment can be initiated to help with placement of the patient in appropriate CD setting to help with ongoing treatment of her primary alcohol dependence. 9. Recommend that, when patient is medically stabilized and does complete CD treatment and is discharged back to community, that she continue in an aftercare program to help with sobriety maintenance and also recommend that patient follow up with outpatient psychiatry to assist with overall function and efficacy of the newly initiated psychiatric medication regimen. 10.We will continue to follow up with patient as needed while she remains on the inpatient med/surg unit. 11.We will follow up sooner if any complications in the interim. 12.Also recommend caffeine moderation for the patient going forward. Also help with function throughout the day. 13.Other medications and treatment planning as outlined by patient's primary inpatient treatment team. 14.Crisis plan is in place. /[id number] ARIEL/ROMARIO
[2019-12-26] MEDS ORDERED: Nicotine 14 MG/24 Hr Patch TRDERM SCH (18:15)
[2019-12-26] MEDS: Mirtazapine 30 MG Tab PO SCH (20:51)
[2019-12-26] MEDS: Melatonin 3 MG Tab PO PRN (20:52)
[2019-12-27] MEDS: Pantoprazole 40 MG Tab.CR PO SCH ×2 (07:56→16:59)
[2019-12-27] MEDS: Sucralfate 1 GM Tab PO SCH ×4 (07:57→20:52)
[2019-12-27] MEDS: Polyethylene Glycol 3350 Powder 17 GM Packet PO SCH (08:18)
[2019-12-27] MEDS: Enoxaparin 30 MG/0.3 ML Syringe SUBCUT SCH (08:19)
[2019-12-27] MEDS: Metoprolol Succinate 25 MG Tab.ER PO SCH (08:22)
[2019-12-27] MEDS: Thiamine 100 MG Tab PO SCH (08:22)
[2019-12-27] MEDS: Potassium Chloride 20 MEQ Tab.ER PO SCH ×2 (08:23→20:52)
[2019-12-27] MEDS: Folic Acid 1 MG Tab PO SCH (08:23)
[2019-12-27] MEDS: Topiramate 50 MG Tab PO SCH ×2 (08:23→20:52)
--- NOTE | 2019-12-27 08:30 | PCM.PN ---
- General Info Date of Service: 12/27/19 Admission Dx/Problem (Free Text): Zuleika Lamb sleeping today, had discussion yesterday about going to inpatient treatment at [facility], Zuleika had a lot of questions about their program, her biggest concern is about where she would go after she got out, she did not want to lose her apartment and be on the street. We had discussed previously with her about going into assisted living where she would have meals made for her and social interactions. She was agreeable to have a phone interview with [facility] to get some of her questions answered. They have a bed open so would like to get her there tomorrow if possible. - Patient Data Vitals - Most Recent: Last Vital Signs Temp 98 F 12/26/19 16:00 Pulse 90 12/27/19 05:45 Resp 18 12/27/19 05:45 BP 150/86 H 12/27/19 05:45 Pulse Ox 97 12/27/19 05:45 Weight - Most Recent: 95 lb 2 oz I&O - Last 24 Hours: Intake & Output 12/26/19 12/27/19 12/27/19 22:59 06:59 14:59 Output Total 400 500 Balance -400 -500 Med Orders - Current: Current Medications Bisacodyl (Dulcolax) 5 mg PO DAILY PRN PRN Reason: Constipation Last Admin: 12/24/19 18:24 Dose: 5 mg Enoxaparin Sodium (Lovenox) 30 mg SUBCUT Q24H [facility] Last Admin: 12/26/19 08:26 Dose: 30 mg Folic Acid (Folic Acid) 1 mg PO DAILY [facility] Last Admin: 12/26/19 08:26 Dose: 1 mg Ibuprofen (Motrin) 400 mg PO Q6H PRN PRN Reason: Headache Last Admin: 12/26/19 20:52 Dose: 400 mg Lorazepam (Ativan) 0 mg PO ASDIRECTED [facility]; Protocol Last Admin: 12/25/19 20:17 Dose: 1 mg Magnesium Oxide (Magnesium Oxide) 400 mg PO DAILY@1200 [facility] Last Admin: 12/26/19 11:13 Dose: 400 mg Melatonin (Melatonin) 3 mg PO BEDTIME PRN PRN Reason: SLEEP Last Admin: 12/26/19 20:52 Dose: 3 mg Metoprolol Succinate (Toprol Xl) 25 mg PO DAILY [facility] Last Admin: 12/26/19 08:25 Dose: 25 mg Mirtazapine (Remeron) 30 mg PO BEDTIME [facility] Last Admin: 12/26/19 20:51 Dose: 30 mg Multivitamins/Minerals/Vitamin C (Tab-A-Jocelin) 1 tab PO DAILY@1200 [facility] Last Admin: 12/26/19 11:13 Dose: 1 tab Nicotine (Habitrol) 14 mg TRDERM Q24H [facility] Pantoprazole Sodium (Protonix) 40 mg PO BIDAC [facility] Last Admin: 12/27/19 07:56 Dose: 40 mg Polyethylene Glycol (Miralax) 17 gm PO DAILY [facility] Last Admin: 12/26/19 08:26 Dose: Not Given Potassium Chloride (Klor-Con M20) 20 meq PO BID [facility] Last Admin: 12/26/19 20:51 Dose: 20 meq Sucralfate (Carafate) 1 gm PO QIDACANDBED [facility] Last Admin: 12/27/19 07:57 Dose: 1 gm Thiamine HCl (Vitamin B-1) 100 mg PO DAILY [facility] Last Admin: 12/26/19 08:26 Dose: 100 mg Topiramate (Topamax) 25 mg PO BID [facility] Last Admin: 12/26/19 20:52 Dose: 25 mg Discontinued Medications Calcium Carbonate/Glycine (Tums) 500 mg PO Q48H [facility] Last Admin: 12/22/19 09:34 Dose: Not Given Ciprofloxacin (Ciprofloxacin Hcl) 500 mg PO BID [facility] Stop: 12/26/19 21:01 Last Admin: 12/23/19 09:46 Dose: 500 mg Ciprofloxacin (Ciprofloxacin Hcl) 500 mg PO BID [facility] Stop: 12/26/19 23:59 Last Admin: 12/26/19 20:51 Dose: 500 mg Enoxaparin Sodium (Lovenox) 30 mg SUBCUT Q24H [facility] Last Admin: 12/20/19 03:51 Dose: 30 mg Hydroxyzine HCl (Vistaril) 50 mg IM ONETIME ONE Stop: 12/20/19 01:46 Last Admin: 12/20/19 02:21 Dose: 50 mg Hydroxyzine HCl (Vistaril) 50 mg IM Q6H PRN PRN Reason: nausea/anxiety Hydroxyzine HCl (Atarax) 25 mg PO BEDTIME PRN PRN Reason: Insomnia Last Admin: 12/21/19 23:51 Dose: 25 mg Dextrose/Sodium Chloride (Dextrose 5%-Normal Saline) 1,000 mls @ 1,000 mls/hr IV ASDIRECTED [facility] Last Admin: 12/20/19 01:20 Dose: 1,000 mls/hr Thiamine HCl 100 mg/ Sodium (Chloride) 101 mls @ 202 mls/hr IV ONETIME ONE Stop: 12/20/19 01:04 Last Admin: 12/20/19 02:03 Dose: 202 mls/hr Sodium Chloride (Normal Saline) 1,000 mls @ 150 mls/hr IV ASDIRECTED [facility] Last Admin: 12/20/19 12:00 Dose: 150 mls/hr Sodium Chloride (Normal Saline) 1,000 mls @ 100 mls/hr IV ASDIRECTED [facility] Last Admin: 12/21/19 01:08 Dose: 100 mls/hr Sodium Chloride (Normal Saline) 250 mls @ 100 mls/hr IV ASDIRECTED [facility] Ciprofloxacin/Dextrose 400 mg/ (Premix) 200 mls @ 200 mls/hr IV BID [facility] Last Admin: 12/24/19 08:43 Dose: 200 mls/hr Sodium Chloride (Normal Saline) 1,000 mls @ 100 mls/hr IV ASDIRECTED [facility] Last Admin: 12/24/19 00:30 Dose: 100 mls/hr Iopamidol (Isovue-370 (76%)) 100 ml IV . DIRECTED ONE Stop: 12/20/19 09:09 Last Admin: 12/20/19 10:06 Dose: 40 ml Lorazepam (Ativan) 1 mg IVPUSH NOW STA Stop: 12/20/19 03:21 Last Admin: 12/20/19 03:39 Dose: 1 mg Metoprolol Succinate (Toprol Xl) 12.5 mg PO DAILY [facility] Last Admin: 12/25/19 10:13 Dose: 12.5 mg Morphine Sulfate (Morphine) 4 mg IVPUSH Q4H PRN PRN Reason: Breakthrough Pain Morphine Sulfate (Morphine) 2 mg IVPUSH Q4H PRN PRN Reason: Breakthrough Pain Last Admin: 12/22/19 01:11 Dose: 2 mg Multivitamins/Minerals/Vitamin C (Tab-A-Jocelin) 1 tab PO DAILY [facility] Last Admin: 12/22/19 08:46 Dose: 1 tab Nicotine (Habitrol) 14 mg TRDERM DAILY [facility] Last Admin: 12/26/19 18:59 Dose: 14 mg Non-Formulary Medication (Acamprosate [Campral]) 666 mg PO TID [facility] Last Admin: 12/20/19 12:27 Dose: Not Given Ondansetron HCl (Zofran Odt) 8 mg PO ONETIME ONE Stop: 12/20/19 00:58 Last Admin: 12/20/19 01:10 Dose: 8 mg Ondansetron HCl (Zofran) 4 mg IVPUSH Q4H PRN PRN Reason: Nausea/Vomiting Last Admin: 12/20/19 12:06 Dose: 4 mg Pantoprazole Sodium (Protonix Iv) 40 mg IV DAILY [facility] Last Admin: 12/22/19 08:46 Dose: 40 mg Pantoprazole Sodium (Protonix Iv) 40 mg IVPUSH Q12H [facility] Last Admin: 12/25/19 09:13 Dose: Not Given Pantoprazole Sodium (Protonix) 40 mg PO NOW ONE Stop: 12/22/19 23:01 Last Admin: 12/22/19 23:02 Dose: 40 mg Potassium Chloride (Klor-Con M20) 20 meq PO BID@1000,1200 [facility] Stop: 12/22/19 12:01 Last Admin: 12/22/19 12:07 Dose: 20 meq Sertraline HCl (Zoloft) 100 mg PO DAILY [facility] Last Admin: 12/26/19 08:26 Dose: 100 mg Sodium Chloride (Saline Flush) 10 ml FLUSH ASDIRECTED PRN PRN Reason: Keep Vein Open Last Admin: 12/24/19 17:38 Dose: 10 ml - Exam General: Cooperative, No Acute Distress Lungs: Clear to Auscultation, Normal Respiratory Effort Cardiovascular: Regular Rate, Regular Rhythm GI/Abdominal Exam: Normal Bowel Sounds, Soft, Non-Tender, No Distention Extremities: No Pedal Edema Sepsis Event Note - Evaluation Sepsis Screening Result: No Definite Risk - Focused Exam Vital Signs: Vital Signs Pulse Resp BP Pulse Ox 12/27/19 05:45 90 18 150/86 H 97 12/27/19 00:00 16 12/26/19 21:00 95 18 148/90 H 98 Date Exam was Performed: 05/13/20 Time Exam was Performed: 08:25 - Problem List & Annotations (1) Alcohol abuse with intoxication SNOMED Code(s): 68165705 Code(s): F10.129 - ALCOHOL ABUSE WITH INTOXICATION, UNSPECIFIED Status: Acute Current Visit: Yes (2) Anemia SNOMED Code(s): 242419843 Code(s): D64.9 - ANEMIA, UNSPECIFIED Status: Acute Current Visit: Yes (3) Hypokalemia SNOMED Code(s): 25136095 Code(s): E87.6 - HYPOKALEMIA Status: Resolved Current Visit: No Annotation/Comment:: (4) Abdominal pain SNOMED Code(s): 08725561 Code(s): R10.9 - UNSPECIFIED ABDOMINAL PAIN Status: Acute Current Visit: No (5) Alcohol withdrawal SNOMED Code(s): 197212956 Code(s): F10.239 - ALCOHOL DEPENDENCE WITH WITHDRAWAL, UNSPECIFIED Status: Acute Current Visit: No Qualifiers: Complication of substance-induced condition: with unspecified complication Qualified Code(s): F10.239 - Alcohol dependence with withdrawal, unspecified (6) Hypomagnesemia SNOMED Code(s): 541330408 Code(s): E83.42 - HYPOMAGNESEMIA Status: Resolved Current Visit: No Annotation/Comment:: improving (7) Gastritis SNOMED Code(s): 8273948 Code(s): K29.70 - GASTRITIS, UNSPECIFIED, WITHOUT BLEEDING Status: Chronic Current Visit: No Qualifiers: Gastritis type: unspecified gastritis Chronicity: unspecified Gastritis bleeding: presence of bleeding unspecified Qualified Code(s): K29.70 - Gastritis, unspecified, without bleeding (8) H/O ETOH abuse SNOMED Code(s): 634634831 Code(s): Z87.898 - PERSONAL HISTORY OF OTHER SPECIFIED CONDITIONS Status: Chronic Current Visit: No (9) UTI (urinary tract infection) SNOMED Code(s): 79675830 Code(s): N39.0 - URINARY TRACT INFECTION, SITE NOT SPECIFIED Status: Resolved Current Visit: Yes - Problem List Review Problem List Initiated/Reviewed/Updated: Yes - My Orders Last 24 Hours: My Active Orders 12/26/19 09:00 Metoprolol Succinate [Toprol XL] 25 mg PO DAILY 12/27/19 18:00 Nicotine [Habitrol] 14 mg TRDERM Q24H - Plan Plan:: TelePsych consult with Dr Rosales made, recommended inpatient structured chemical dependence treatment, added Remeron 30 mg at bedtime and Topiramate 25 mg bid. Discontinued Zoloft. Currently she is in agreement with treatment, Dr Rosales advised that if she decided not to go, then he would recommend committal. [facility] opening, will try to get phone interview with Zuleika and them today and plan to discharge tomorrow if she is agreeable. If she requires committal for inpatient treatment then we would have to look at [facility] as [facility] does not do committals.
[2019-12-27] MEDS: Multivitamin Tab PO SCH (12:22)
[2019-12-27] MEDS: Magnesium Oxide 400 MG Tab PO SCH (12:22)
[2019-12-27] MEDS: Nicotine 14 MG/24 Hr Patch TRDERM SCH (17:11)
[2019-12-27] MEDS: Mirtazapine 30 MG Tab PO SCH (20:52)
[2019-12-27] MEDS: Melatonin 3 MG Tab PO PRN (20:53)
[2019-12-27] MEDS: Ibuprofen 400 MG Tab PO PRN (20:53)
[2019-12-28] MEDS: Sucralfate 1 GM Tab PO SCH ×4 (07:58→21:46)
[2019-12-28] MEDS: Pantoprazole 40 MG Tab.CR PO SCH ×2 (07:59→17:13)
[2019-12-28] MEDS: Thiamine 100 MG Tab PO SCH (08:00)
[2019-12-28] MEDS: Metoprolol Succinate 25 MG Tab.ER PO SCH (08:00)
[2019-12-28] MEDS: Enoxaparin 30 MG/0.3 ML Syringe SUBCUT SCH (08:00)
[2019-12-28] MEDS: Folic Acid 1 MG Tab PO SCH (08:02)
[2019-12-28] MEDS: Potassium Chloride 20 MEQ Tab.ER PO SCH ×2 (08:02→21:46)
[2019-12-28] MEDS: Polyethylene Glycol 3350 Powder 17 GM Packet PO SCH (08:02)
[2019-12-28] MEDS: Topiramate 50 MG Tab PO SCH ×2 (08:03→21:46)
--- NOTE | 2019-12-28 10:29 | PCM.PN ---
- General Info Date of Service: 12/28/19 Admission Dx/Problem (Free Text): Zuleika's stomach is still sore, hurts but admits that it is better than prior to admission. She is willing to go into treatment if it is different than what she has done through [facility]. PT/OT has been working with her but has plateaued and would not be picked up for services. No fevers, shortness of breath, cough. Functional Status: Reports: Tolerating Diet, Ambulating, Urinating. Denies: New Symptoms - Patient Data Vitals - Most Recent: Last Vital Signs Temp 98.3 F 12/28/19 08:00 Pulse 78 12/28/19 08:00 Resp 18 12/28/19 08:00 BP 146/84 H 12/28/19 08:00 Pulse Ox 97 12/28/19 08:00 Weight - Most Recent: 95 lb 2 oz Med Orders - Current: Current Medications Bisacodyl (Dulcolax) 5 mg PO DAILY PRN PRN Reason: Constipation Last Admin: 12/24/19 18:24 Dose: 5 mg Enoxaparin Sodium (Lovenox) 30 mg SUBCUT Q24H [facility] Last Admin: 12/28/19 08:00 Dose: 30 mg Folic Acid (Folic Acid) 1 mg PO DAILY [facility] Last Admin: 12/28/19 08:02 Dose: 1 mg Ibuprofen (Motrin) 400 mg PO Q6H PRN PRN Reason: Headache Last Admin: 12/27/19 20:53 Dose: 400 mg Lorazepam (Ativan) 0 mg PO ASDIRECTED [facility]; Protocol Last Admin: 12/25/19 20:17 Dose: 1 mg Magnesium Oxide (Magnesium Oxide) 400 mg PO DAILY@1200 [facility] Last Admin: 12/27/19 12:22 Dose: 400 mg Melatonin (Melatonin) 3 mg PO BEDTIME PRN PRN Reason: SLEEP Last Admin: 12/27/19 20:53 Dose: 3 mg Metoprolol Succinate (Toprol Xl) 25 mg PO DAILY [facility] Last Admin: 12/28/19 08:00 Dose: 25 mg Mirtazapine (Remeron) 30 mg PO BEDTIME [facility] Last Admin: 12/27/19 20:52 Dose: 30 mg Multivitamins/Minerals/Vitamin C (Tab-A-Jocelin) 1 tab PO DAILY@1200 [facility] Last Admin: 12/27/19 12:22 Dose: 1 tab Nicotine (Habitrol) 14 mg TRDERM Q24H [facility] Last Admin: 12/27/19 17:11 Dose: 14 mg Pantoprazole Sodium (Protonix) 40 mg PO BIDAC [facility] Last Admin: 12/28/19 07:59 Dose: 40 mg Polyethylene Glycol (Miralax) 17 gm PO DAILY [facility] Last Admin: 12/28/19 08:02 Dose: 17 gm Potassium Chloride (Klor-Con M20) 20 meq PO BID [facility] Last Admin: 12/28/19 08:02 Dose: 20 meq Sucralfate (Carafate) 1 gm PO QIDACANDBED [facility] Last Admin: 12/28/19 07:58 Dose: 1 gm Thiamine HCl (Vitamin B-1) 100 mg PO DAILY [facility] Last Admin: 12/28/19 08:00 Dose: 100 mg Topiramate (Topamax) 25 mg PO BID [facility] Last Admin: 12/28/19 08:03 Dose: 25 mg Discontinued Medications Calcium Carbonate/Glycine (Tums) 500 mg PO Q48H [facility] Last Admin: 12/22/19 09:34 Dose: Not Given Ciprofloxacin (Ciprofloxacin Hcl) 500 mg PO BID [facility] Stop: 12/26/19 21:01 Last Admin: 12/23/19 09:46 Dose: 500 mg Ciprofloxacin (Ciprofloxacin Hcl) 500 mg PO BID [facility] Stop: 12/26/19 23:59 Last Admin: 12/26/19 20:51 Dose: 500 mg Enoxaparin Sodium (Lovenox) 30 mg SUBCUT Q24H [facility] Last Admin: 12/20/19 03:51 Dose: 30 mg Hydroxyzine HCl (Vistaril) 50 mg IM ONETIME ONE Stop: 12/20/19 01:46 Last Admin: 12/20/19 02:21 Dose: 50 mg Hydroxyzine HCl (Vistaril) 50 mg IM Q6H PRN PRN Reason: nausea/anxiety Hydroxyzine HCl (Atarax) 25 mg PO BEDTIME PRN PRN Reason: Insomnia Last Admin: 12/21/19 23:51 Dose: 25 mg Dextrose/Sodium Chloride (Dextrose 5%-Normal Saline) 1,000 mls @ 1,000 mls/hr IV ASDIRECTED [facility] Last Admin: 12/20/19 01:20 Dose: 1,000 mls/hr Thiamine HCl 100 mg/ Sodium (Chloride) 101 mls @ 202 mls/hr IV ONETIME ONE Stop: 12/20/19 01:04 Last Admin: 12/20/19 02:03 Dose: 202 mls/hr Sodium Chloride (Normal Saline) 1,000 mls @ 150 mls/hr IV ASDIRECTED [facility] Last Admin: 12/20/19 12:00 Dose: 150 mls/hr Sodium Chloride (Normal Saline) 1,000 mls @ 100 mls/hr IV ASDIRECTED [facility] Last Admin: 12/21/19 01:08 Dose: 100 mls/hr Sodium Chloride (Normal Saline) 250 mls @ 100 mls/hr IV ASDIRECTED [facility] Ciprofloxacin/Dextrose 400 mg/ (Premix) 200 mls @ 200 mls/hr IV BID [facility] Last Admin: 12/24/19 08:43 Dose: 200 mls/hr Sodium Chloride (Normal Saline) 1,000 mls @ 100 mls/hr IV ASDIRECTED [facility] Last Admin: 12/24/19 00:30 Dose: 100 mls/hr Iopamidol (Isovue-370 (76%)) 100 ml IV . DIRECTED ONE Stop: 12/20/19 09:09 Last Admin: 12/20/19 10:06 Dose: 40 ml Lorazepam (Ativan) 1 mg IVPUSH NOW STA Stop: 12/20/19 03:21 Last Admin: 12/20/19 03:39 Dose: 1 mg Metoprolol Succinate (Toprol Xl) 12.5 mg PO DAILY [facility] Last Admin: 12/25/19 10:13 Dose: 12.5 mg Morphine Sulfate (Morphine) 4 mg IVPUSH Q4H PRN PRN Reason: Breakthrough Pain Morphine Sulfate (Morphine) 2 mg IVPUSH Q4H PRN PRN Reason: Breakthrough Pain Last Admin: 12/22/19 01:11 Dose: 2 mg Multivitamins/Minerals/Vitamin C (Tab-A-Jocelin) 1 tab PO DAILY [facility] Last Admin: 12/22/19 08:46 Dose: 1 tab Nicotine (Habitrol) 14 mg TRDERM DAILY [facility] Last Admin: 12/26/19 18:59 Dose: 14 mg Non-Formulary Medication (Acamprosate [Campral]) 666 mg PO TID [facility] Last Admin: 12/20/19 12:27 Dose: Not Given Ondansetron HCl (Zofran Odt) 8 mg PO ONETIME ONE Stop: 12/20/19 00:58 Last Admin: 12/20/19 01:10 Dose: 8 mg Ondansetron HCl (Zofran) 4 mg IVPUSH Q4H PRN PRN Reason: Nausea/Vomiting Last Admin: 12/20/19 12:06 Dose: 4 mg Pantoprazole Sodium (Protonix Iv) 40 mg IV DAILY [facility] Last Admin: 12/22/19 08:46 Dose: 40 mg Pantoprazole Sodium (Protonix Iv) 40 mg IVPUSH Q12H [facility] Last Admin: 12/25/19 09:13 Dose: Not Given Pantoprazole Sodium (Protonix) 40 mg PO NOW ONE Stop: 12/22/19 23:01 Last Admin: 12/22/19 23:02 Dose: 40 mg Potassium Chloride (Klor-Con M20) 20 meq PO BID@1000,1200 [facility] Stop: 12/22/19 12:01 Last Admin: 12/22/19 12:07 Dose: 20 meq Sertraline HCl (Zoloft) 100 mg PO DAILY [facility] Last Admin: 12/26/19 08:26 Dose: 100 mg Sodium Chloride (Saline Flush) 10 ml FLUSH ASDIRECTED PRN PRN Reason: Keep Vein Open Last Admin: 12/24/19 17:38 Dose: 10 ml - Exam General: Alert, Oriented, Cooperative, No Acute Distress Lungs: Clear to Auscultation, Normal Respiratory Effort Cardiovascular: Regular Rate, Regular Rhythm GI/Abdominal Exam: Normal Bowel Sounds, Soft, No Distention, Tender (epigastric) . No: Guarding, Rigid, Rebound Extremities: No Pedal Edema Sepsis Event Note - Evaluation Sepsis Screening Result: No Definite Risk - Focused Exam Vital Signs: Vital Signs Temp Pulse Pulse Resp BP BP Pulse Ox 12/28/19 08:00 98.3 F 78 78 18 146/84 H 146/84 H 97 12/28/19 06:30 84 18 141/84 H 97 12/28/19 00:00 86 18 128/68 96 Date Exam was Performed: 12/28/19 Time Exam was Performed: 10:21 - Problem List & Annotations (1) Alcohol abuse with intoxication SNOMED Code(s): 94635290 Code(s): F10.129 - ALCOHOL ABUSE WITH INTOXICATION, UNSPECIFIED Status: Acute Current Visit: Yes (2) Anemia SNOMED Code(s): 125040371 Code(s): D64.9 - ANEMIA, UNSPECIFIED Status: Acute Current Visit: Yes (3) Abdominal pain SNOMED Code(s): 09804080 Code(s): R10.9 - UNSPECIFIED ABDOMINAL PAIN Status: Acute Current Visit: No (4) Alcohol withdrawal SNOMED Code(s): 459844396 Code(s): F10.239 - ALCOHOL DEPENDENCE WITH WITHDRAWAL, UNSPECIFIED Status: Acute Current Visit: No Qualifiers: Complication of substance-induced condition: with unspecified complication Qualified Code(s): F10.239 - Alcohol dependence with withdrawal, unspecified (5) Gastritis SNOMED Code(s): 4543001 Code(s): K29.70 - GASTRITIS, UNSPECIFIED, WITHOUT BLEEDING Status: Chronic Current Visit: No Qualifiers: Gastritis type: unspecified gastritis Chronicity: unspecified Gastritis bleeding: presence of bleeding unspecified Qualified Code(s): K29.70 - Gastritis, unspecified, without bleeding (6) H/O ETOH abuse SNOMED Code(s): 456494327 Code(s): Z87.898 - PERSONAL HISTORY OF OTHER SPECIFIED CONDITIONS Status: Chronic Current Visit: No (7) Depression SNOMED Code(s): 69949748 Code(s): F32.9 - MAJOR DEPRESSIVE DISORDER, SINGLE EPISODE, UNSPECIFIED Status: Chronic Current Visit: Yes (8) Anxiety SNOMED Code(s): 83198380 Code(s): F41.9 - ANXIETY DISORDER, UNSPECIFIED Status: Chronic Current Visit: Yes (9) UTI (urinary tract infection) SNOMED Code(s): 78485873 Code(s): N39.0 - URINARY TRACT INFECTION, SITE NOT SPECIFIED Status: Resolved Current Visit: Yes (10) Hypomagnesemia SNOMED Code(s): 266662913 Code(s): E83.42 - HYPOMAGNESEMIA Status: Resolved Current Visit: No Annotation/Comment:: improving (11) Hypokalemia SNOMED Code(s): 56854645 Code(s): E87.6 - HYPOKALEMIA Status: Resolved Current Visit: No Annotation/Comment:: - Problem List Review Problem List Initiated/Reviewed/Updated: Yes - My Orders Last 24 Hours: My Active Orders 12/27/19 18:00 Nicotine [Habitrol] 14 mg TRDERM Q24H - Plan Plan:: PT/OT are discharging her from their services as she has plateaued, she does not met criteria for swing bed placement. She does not have a safe discharge at this time. [facility] inpatient chemical dependency unit stated that they could do CD interview on her Wednesday with possible discharge next day. Juanito Jimenez would look at her for placement after she completed inpatient rehab which would be better for her as it would provide socialization, regular meals and some supervision rather than living in her apartment.
[2019-12-28] MEDS: Magnesium Oxide 400 MG Tab PO SCH (11:03)
[2019-12-28] MEDS: Multivitamin Tab PO SCH (11:03)
[2019-12-28] MEDS: Nicotine 14 MG/24 Hr Patch TRDERM SCH (17:13)
[2019-12-28] MEDS: Mirtazapine 30 MG Tab PO SCH (21:46)
[2019-12-29] MEDS: Pantoprazole 40 MG Tab.CR PO SCH ×2 (06:40→17:10)
[2019-12-29] MEDS: Sucralfate 1 GM Tab PO SCH ×4 (06:40→20:35)
[2019-12-29] MEDS: Metoprolol Succinate 25 MG Tab.ER PO SCH (08:48)
[2019-12-29] MEDS: Polyethylene Glycol 3350 Powder 17 GM Packet PO SCH (08:48)
[2019-12-29] MEDS: Topiramate 50 MG Tab PO SCH ×2 (08:48→20:34)
[2019-12-29] MEDS: Potassium Chloride 20 MEQ Tab.ER PO SCH ×2 (08:48→20:35)
[2019-12-29] MEDS: Enoxaparin 30 MG/0.3 ML Syringe SUBCUT SCH (08:48)
[2019-12-29] MEDS: Folic Acid 1 MG Tab PO SCH (08:48)
[2019-12-29] MEDS: Thiamine 100 MG Tab PO SCH (08:49)
--- NOTE | 2019-12-29 09:20 | PCM.PN ---
- General Info Date of Service: 12/29/19 Subjective Update: Complains of right upper quadrant sharp abdominal pain. Functional Status: Reports: Tolerating Diet - Review of Systems HEENT: Reports: No Symptoms Pulmonary: Reports: No Symptoms Cardiovascular: Reports: No Symptoms Gastrointestinal: Reports: Abdominal Pain. Denies: Constipation, Decreased Appetite - Patient Data Vitals - Most Recent: Last Vital Signs Temp 98.1 F 12/29/19 08:00 Pulse 84 12/29/19 08:48 Resp 16 12/29/19 08:00 BP 139/76 12/29/19 08:48 Pulse Ox 96 12/29/19 08:00 Weight - Most Recent: 43.148 kg Med Orders - Current: Current Medications Bisacodyl (Dulcolax) 5 mg PO DAILY PRN PRN Reason: Constipation Last Admin: 12/24/19 18:24 Dose: 5 mg Enoxaparin Sodium (Lovenox) 30 mg SUBCUT Q24H [facility] Last Admin: 12/29/19 08:48 Dose: 30 mg Folic Acid (Folic Acid) 1 mg PO DAILY [facility] Last Admin: 12/29/19 08:48 Dose: 1 mg Ibuprofen (Motrin) 400 mg PO Q6H PRN PRN Reason: Headache Last Admin: 12/27/19 20:53 Dose: 400 mg Lorazepam (Ativan) 0 mg PO ASDIRECTED [facility]; Protocol Last Admin: 12/25/19 20:17 Dose: 1 mg Magnesium Oxide (Magnesium Oxide) 400 mg PO DAILY@1200 [facility] Last Admin: 12/28/19 11:03 Dose: 400 mg Melatonin (Melatonin) 3 mg PO BEDTIME PRN PRN Reason: SLEEP Last Admin: 12/27/19 20:53 Dose: 3 mg Metoprolol Succinate (Toprol Xl) 25 mg PO DAILY [facility] Last Admin: 12/29/19 08:48 Dose: 25 mg Mirtazapine (Remeron) 30 mg PO BEDTIME [facility] Last Admin: 12/28/19 21:46 Dose: 30 mg Multivitamins/Minerals/Vitamin C (Tab-A-Jocelin) 1 tab PO DAILY@1200 [facility] Last Admin: 12/28/19 11:03 Dose: 1 tab Nicotine (Habitrol) 14 mg TRDERM Q24H [facility] Last Admin: 12/28/19 17:13 Dose: 14 mg Pantoprazole Sodium (Protonix) 40 mg PO BIDAC [facility] Last Admin: 12/29/19 06:40 Dose: 40 mg Polyethylene Glycol (Miralax) 17 gm PO DAILY [facility] Last Admin: 12/29/19 08:48 Dose: 17 gm Potassium Chloride (Klor-Con M20) 20 meq PO BID [facility] Last Admin: 12/29/19 08:48 Dose: 20 meq Sucralfate (Carafate) 1 gm PO QIDACANDBED [facility] Last Admin: 12/29/19 06:40 Dose: 1 gm Thiamine HCl (Vitamin B-1) 100 mg PO DAILY [facility] Last Admin: 12/29/19 08:49 Dose: 100 mg Topiramate (Topamax) 25 mg PO BID [facility] Last Admin: 12/29/19 08:48 Dose: 25 mg Discontinued Medications Calcium Carbonate/Glycine (Tums) 500 mg PO Q48H [facility] Last Admin: 12/22/19 09:34 Dose: Not Given Ciprofloxacin (Ciprofloxacin Hcl) 500 mg PO BID [facility] Stop: 12/26/19 21:01 Last Admin: 12/23/19 09:46 Dose: 500 mg Ciprofloxacin (Ciprofloxacin Hcl) 500 mg PO BID [facility] Stop: 12/26/19 23:59 Last Admin: 12/26/19 20:51 Dose: 500 mg Enoxaparin Sodium (Lovenox) 30 mg SUBCUT Q24H [facility] Last Admin: 12/20/19 03:51 Dose: 30 mg Hydroxyzine HCl (Vistaril) 50 mg IM ONETIME ONE Stop: 12/20/19 01:46 Last Admin: 12/20/19 02:21 Dose: 50 mg Hydroxyzine HCl (Vistaril) 50 mg IM Q6H PRN PRN Reason: nausea/anxiety Hydroxyzine HCl (Atarax) 25 mg PO BEDTIME PRN PRN Reason: Insomnia Last Admin: 12/21/19 23:51 Dose: 25 mg Dextrose/Sodium Chloride (Dextrose 5%-Normal Saline) 1,000 mls @ 1,000 mls/hr IV ASDIRECTED [facility] Last Admin: 12/20/19 01:20 Dose: 1,000 mls/hr Thiamine HCl 100 mg/ Sodium (Chloride) 101 mls @ 202 mls/hr IV ONETIME ONE Stop: 12/20/19 01:04 Last Admin: 12/20/19 02:03 Dose: 202 mls/hr Sodium Chloride (Normal Saline) 1,000 mls @ 150 mls/hr IV ASDIRECTED [facility] Last Admin: 12/20/19 12:00 Dose: 150 mls/hr Sodium Chloride (Normal Saline) 1,000 mls @ 100 mls/hr IV ASDIRECTED [facility] Last Admin: 12/21/19 01:08 Dose: 100 mls/hr Sodium Chloride (Normal Saline) 250 mls @ 100 mls/hr IV ASDIRECTED [facility] Ciprofloxacin/Dextrose 400 mg/ (Premix) 200 mls @ 200 mls/hr IV BID [facility] Last Admin: 12/24/19 08:43 Dose: 200 mls/hr Sodium Chloride (Normal Saline) 1,000 mls @ 100 mls/hr IV ASDIRECTED [facility] Last Admin: 12/24/19 00:30 Dose: 100 mls/hr Iopamidol (Isovue-370 (76%)) 100 ml IV . DIRECTED ONE Stop: 12/20/19 09:09 Last Admin: 12/20/19 10:06 Dose: 40 ml Lorazepam (Ativan) 1 mg IVPUSH NOW STA Stop: 12/20/19 03:21 Last Admin: 12/20/19 03:39 Dose: 1 mg Metoprolol Succinate (Toprol Xl) 12.5 mg PO DAILY [facility] Last Admin: 12/25/19 10:13 Dose: 12.5 mg Morphine Sulfate (Morphine) 4 mg IVPUSH Q4H PRN PRN Reason: Breakthrough Pain Morphine Sulfate (Morphine) 2 mg IVPUSH Q4H PRN PRN Reason: Breakthrough Pain Last Admin: 12/22/19 01:11 Dose: 2 mg Multivitamins/Minerals/Vitamin C (Tab-A-Jocelin) 1 tab PO DAILY [facility] Last Admin: 12/22/19 08:46 Dose: 1 tab Nicotine (Habitrol) 14 mg TRDERM DAILY [facility] Last Admin: 12/26/19 18:59 Dose: 14 mg Non-Formulary Medication (Acamprosate [Campral]) 666 mg PO TID [facility] Last Admin: 12/20/19 12:27 Dose: Not Given Ondansetron HCl (Zofran Odt) 8 mg PO ONETIME ONE Stop: 12/20/19 00:58 Last Admin: 12/20/19 01:10 Dose: 8 mg Ondansetron HCl (Zofran) 4 mg IVPUSH Q4H PRN PRN Reason: Nausea/Vomiting Last Admin: 12/20/19 12:06 Dose: 4 mg Pantoprazole Sodium (Protonix Iv) 40 mg IV DAILY [facility] Last Admin: 12/22/19 08:46 Dose: 40 mg Pantoprazole Sodium (Protonix Iv) 40 mg IVPUSH Q12H [facility] Last Admin: 12/25/19 09:13 Dose: Not Given Pantoprazole Sodium (Protonix) 40 mg PO NOW ONE Stop: 12/22/19 23:01 Last Admin: 12/22/19 23:02 Dose: 40 mg Potassium Chloride (Klor-Con M20) 20 meq PO BID@1000,1200 [facility] Stop: 12/22/19 12:01 Last Admin: 12/22/19 12:07 Dose: 20 meq Sertraline HCl (Zoloft) 100 mg PO DAILY [facility] Last Admin: 12/26/19 08:26 Dose: 100 mg Sodium Chloride (Saline Flush) 10 ml FLUSH ASDIRECTED PRN PRN Reason: Keep Vein Open Last Admin: 12/24/19 17:38 Dose: 10 ml - Exam General: Alert, Oriented HEENT: Pupils Equal Neck: Supple Skin: Warm Neurological: No New Focal Deficit Psy/Mental Status: Alert Sepsis Event Note - Evaluation Sepsis Screening Result: No Definite Risk - Focused Exam Vital Signs: Vital Signs Temp Temp Pulse Pulse Resp BP BP 12/29/19 08:48 84 139/76 12/29/19 08:00 98.1 F 84 16 139/76 12/29/19 00:00 96.8 F L 94 15 113/71 12/28/19 22:00 98.5 F 86 16 138/74 Pulse Ox 12/29/19 08:48 12/29/19 08:00 96 12/29/19 00:00 96 12/28/19 22:00 95 Date Exam was Performed: 12/29/19 Time Exam was Performed: 09:18 - Problem List & Annotations (1) Alcohol abuse with intoxication SNOMED Code(s): 46819078 Code(s): F10.129 - ALCOHOL ABUSE WITH INTOXICATION, UNSPECIFIED Status: Acute Current Visit: Yes (2) Cyclic vomiting syndrome Status: Acute Current Visit: Yes (3) Dehydration SNOMED Code(s): 49535884 Code(s): E86.0 - DEHYDRATION Status: Acute Current Visit: Yes (4) Alcohol withdrawal syndrome SNOMED Code(s): 456496656 Code(s): F10.239 - ALCOHOL DEPENDENCE WITH WITHDRAWAL, UNSPECIFIED Status: Acute Current Visit: No (5) Dyskinesia SNOMED Code(s): 1573826 Code(s): G24.9 - DYSTONIA, UNSPECIFIED Status: Acute Current Visit: No (6) MDD (major depressive disorder) SNOMED Code(s): 646080080 Code(s): F32.9 - MAJOR DEPRESSIVE DISORDER, SINGLE EPISODE, UNSPECIFIED Status: Acute Current Visit: No Qualifiers: Major depression recurrence: recurrent Active/Remission status: currently active (7) Hypomagnesemia SNOMED Code(s): 368792902 Code(s): E83.42 - HYPOMAGNESEMIA Status: Resolved Current Visit: No Annotation/Comment:: improving (8) Anemia SNOMED Code(s): 878610519 Code(s): D64.9 - ANEMIA, UNSPECIFIED Status: Acute Current Visit: Yes (9) Chronic abdominal pain SNOMED Code(s): 069680829 Code(s): R10.9 - UNSPECIFIED ABDOMINAL PAIN; G89.29 - OTHER CHRONIC PAIN Status: Acute Current Visit: Yes - Problem List Review Problem List Initiated/Reviewed/Updated: Yes - My Orders Last 24 Hours: My Active Orders 12/29/19 09:17 traMADol [Ultram] 50 mg PO Q8H PRN - Assessment Assessment:: Patient still has a CIWA score of 17. Speech is unintelligible.Hemoglobin down to 7.7 g/dl. I will give her 2 units of blood today, continue the protocol for CIWA. Consider CT of head if symptoms not improve. Advance diet to clear liquid. Repeat labs tomorrow morning. - Plan Plan:: It is my understanding that Zuleika is has interest in inpatient alcohol treatment. Awaiting a call on Wednesday from facility that is willing to accept her. I'll treat her pain,with Tramadol
[2019-12-29] MEDS: traMADol 50 MG Tab PO PRN ×2 (11:45→20:32)
[2019-12-29] MEDS: Magnesium Oxide 400 MG Tab PO SCH (11:46)
[2019-12-29] MEDS: Multivitamin Tab PO SCH (11:46)
[2019-12-29] MEDS: Nicotine 14 MG/24 Hr Patch TRDERM SCH (17:10)
[2019-12-29] MEDS: Mirtazapine 30 MG Tab PO SCH (22:16)
[2019-12-30] MEDS: Sucralfate 1 GM Tab PO SCH ×5 (06:34→21:35)
[2019-12-30] MEDS: Pantoprazole 40 MG Tab.CR PO SCH ×2 (06:34→17:23)
--- NOTE | 2019-12-30 08:45 | PCM.PN ---
- General Info Date of Service: 12/30/19 Subjective Update: Complains of right upper quadrant sharp abdominal pain.Tramadol helped Functional Status: Reports: Pain Controlled - Review of Systems HEENT: Reports: No Symptoms Pulmonary: Reports: No Symptoms Cardiovascular: Reports: No Symptoms Gastrointestinal: Reports: No Symptoms - Patient Data Vitals - Most Recent: Last Vital Signs Temp 98.1 F 12/30/19 08:00 Pulse 85 12/30/19 08:00 Resp 16 12/30/19 08:00 BP 89/65 L 12/30/19 08:00 Pulse Ox 96 12/30/19 08:00 Weight - Most Recent: 43.148 kg Med Orders - Current: Current Medications Bisacodyl (Dulcolax) 5 mg PO DAILY PRN PRN Reason: Constipation Last Admin: 12/24/19 18:24 Dose: 5 mg Enoxaparin Sodium (Lovenox) 30 mg SUBCUT Q24H [facility] Last Admin: 12/29/19 08:48 Dose: 30 mg Folic Acid (Folic Acid) 1 mg PO DAILY [facility] Last Admin: 12/29/19 08:48 Dose: 1 mg Ibuprofen (Motrin) 400 mg PO Q6H PRN PRN Reason: Headache Last Admin: 12/27/19 20:53 Dose: 400 mg Lorazepam (Ativan) 0 mg PO ASDIRECTED [facility]; Protocol Last Admin: 12/25/19 20:17 Dose: 1 mg Magnesium Oxide (Magnesium Oxide) 400 mg PO DAILY@1200 [facility] Last Admin: 12/29/19 11:46 Dose: 400 mg Melatonin (Melatonin) 3 mg PO BEDTIME PRN PRN Reason: SLEEP Last Admin: 12/27/19 20:53 Dose: 3 mg Metoprolol Succinate (Toprol Xl) 25 mg PO DAILY [facility] Last Admin: 12/29/19 08:48 Dose: 25 mg Mirtazapine (Remeron) 30 mg PO BEDTIME [facility] Last Admin: 12/29/19 22:16 Dose: 30 mg Multivitamins/Minerals/Vitamin C (Tab-A-Jocelin) 1 tab PO DAILY@1200 [facility] Last Admin: 12/29/19 11:46 Dose: 1 tab Nicotine (Habitrol) 14 mg TRDERM Q24H [facility] Last Admin: 12/29/19 17:10 Dose: 14 mg Pantoprazole Sodium (Protonix) 40 mg PO BIDAC [facility] Last Admin: 12/30/19 06:34 Dose: 40 mg Polyethylene Glycol (Miralax) 17 gm PO DAILY [facility] Last Admin: 12/29/19 08:48 Dose: 17 gm Potassium Chloride (Klor-Con M20) 20 meq PO BID [facility] Last Admin: 12/29/19 20:35 Dose: 20 meq Sucralfate (Carafate) 1 gm PO QIDACANDBED [facility] Last Admin: 12/30/19 07:06 Dose: 1 gm Thiamine HCl (Vitamin B-1) 100 mg PO DAILY [facility] Last Admin: 12/29/19 08:49 Dose: 100 mg Topiramate (Topamax) 25 mg PO BID [facility] Last Admin: 12/29/19 20:34 Dose: 25 mg Tramadol HCl (Ultram) 50 mg PO Q8H PRN PRN Reason: Breakthrough Pain Last Admin: 12/29/19 20:32 Dose: 50 mg Discontinued Medications Calcium Carbonate/Glycine (Tums) 500 mg PO Q48H [facility] Last Admin: 12/22/19 09:34 Dose: Not Given Ciprofloxacin (Ciprofloxacin Hcl) 500 mg PO BID [facility] Stop: 12/26/19 21:01 Last Admin: 12/23/19 09:46 Dose: 500 mg Ciprofloxacin (Ciprofloxacin Hcl) 500 mg PO BID [facility] Stop: 12/26/19 23:59 Last Admin: 12/26/19 20:51 Dose: 500 mg Enoxaparin Sodium (Lovenox) 30 mg SUBCUT Q24H [facility] Last Admin: 12/20/19 03:51 Dose: 30 mg Hydroxyzine HCl (Vistaril) 50 mg IM ONETIME ONE Stop: 12/20/19 01:46 Last Admin: 12/20/19 02:21 Dose: 50 mg Hydroxyzine HCl (Vistaril) 50 mg IM Q6H PRN PRN Reason: nausea/anxiety Hydroxyzine HCl (Atarax) 25 mg PO BEDTIME PRN PRN Reason: Insomnia Last Admin: 12/21/19 23:51 Dose: 25 mg Dextrose/Sodium Chloride (Dextrose 5%-Normal Saline) 1,000 mls @ 1,000 mls/hr IV ASDIRECTED [facility] Last Admin: 12/20/19 01:20 Dose: 1,000 mls/hr Thiamine HCl 100 mg/ Sodium (Chloride) 101 mls @ 202 mls/hr IV ONETIME ONE Stop: 12/20/19 01:04 Last Admin: 12/20/19 02:03 Dose: 202 mls/hr Sodium Chloride (Normal Saline) 1,000 mls @ 150 mls/hr IV ASDIRECTED [facility] Last Admin: 12/20/19 12:00 Dose: 150 mls/hr Sodium Chloride (Normal Saline) 1,000 mls @ 100 mls/hr IV ASDIRECTED [facility] Last Admin: 12/21/19 01:08 Dose: 100 mls/hr Sodium Chloride (Normal Saline) 250 mls @ 100 mls/hr IV ASDIRECTED [facility] Ciprofloxacin/Dextrose 400 mg/ (Premix) 200 mls @ 200 mls/hr IV BID [facility] Last Admin: 12/24/19 08:43 Dose: 200 mls/hr Sodium Chloride (Normal Saline) 1,000 mls @ 100 mls/hr IV ASDIRECTED [facility] Last Admin: 12/24/19 00:30 Dose: 100 mls/hr Iopamidol (Isovue-370 (76%)) 100 ml IV . DIRECTED ONE Stop: 12/20/19 09:09 Last Admin: 12/20/19 10:06 Dose: 40 ml Lorazepam (Ativan) 1 mg IVPUSH NOW STA Stop: 12/20/19 03:21 Last Admin: 12/20/19 03:39 Dose: 1 mg Metoprolol Succinate (Toprol Xl) 12.5 mg PO DAILY [facility] Last Admin: 12/25/19 10:13 Dose: 12.5 mg Morphine Sulfate (Morphine) 4 mg IVPUSH Q4H PRN PRN Reason: Breakthrough Pain Morphine Sulfate (Morphine) 2 mg IVPUSH Q4H PRN PRN Reason: Breakthrough Pain Last Admin: 12/22/19 01:11 Dose: 2 mg Multivitamins/Minerals/Vitamin C (Tab-A-Jocelin) 1 tab PO DAILY [facility] Last Admin: 12/22/19 08:46 Dose: 1 tab Nicotine (Habitrol) 14 mg TRDERM DAILY [facility] Last Admin: 12/26/19 18:59 Dose: 14 mg Non-Formulary Medication (Acamprosate [Campral]) 666 mg PO TID [facility] Last Admin: 12/20/19 12:27 Dose: Not Given Ondansetron HCl (Zofran Odt) 8 mg PO ONETIME ONE Stop: 12/20/19 00:58 Last Admin: 12/20/19 01:10 Dose: 8 mg Ondansetron HCl (Zofran) 4 mg IVPUSH Q4H PRN PRN Reason: Nausea/Vomiting Last Admin: 12/20/19 12:06 Dose: 4 mg Pantoprazole Sodium (Protonix Iv) 40 mg IV DAILY [facility] Last Admin: 12/22/19 08:46 Dose: 40 mg Pantoprazole Sodium (Protonix Iv) 40 mg IVPUSH Q12H [facility] Last Admin: 12/25/19 09:13 Dose: Not Given Pantoprazole Sodium (Protonix) 40 mg PO NOW ONE Stop: 12/22/19 23:01 Last Admin: 12/22/19 23:02 Dose: 40 mg Potassium Chloride (Klor-Con M20) 20 meq PO BID@1000,1200 [facility] Stop: 12/22/19 12:01 Last Admin: 12/22/19 12:07 Dose: 20 meq Sertraline HCl (Zoloft) 100 mg PO DAILY [facility] Last Admin: 12/26/19 08:26 Dose: 100 mg Sodium Chloride (Saline Flush) 10 ml FLUSH ASDIRECTED PRN PRN Reason: Keep Vein Open Last Admin: 12/24/19 17:38 Dose: 10 ml - Exam General: Alert, Oriented Neck: Supple Skin: Warm Neurological: No New Focal Deficit Psy/Mental Status: Alert, Normal Affect Sepsis Event Note - Evaluation Sepsis Screening Result: No Definite Risk - Focused Exam Vital Signs: Vital Signs Temp Pulse Resp BP Pulse Ox 12/30/19 08:00 98.1 F 85 16 89/65 L 96 12/30/19 01:15 97.7 F 92 16 148/86 H 95 Date Exam was Performed: 12/30/19 Time Exam was Performed: 08:44 - Problem List & Annotations (1) Alcohol abuse with intoxication SNOMED Code(s): 70749982 Code(s): F10.129 - ALCOHOL ABUSE WITH INTOXICATION, UNSPECIFIED Status: Acute Current Visit: Yes (2) Cyclic vomiting syndrome Status: Acute Current Visit: Yes (3) Dehydration SNOMED Code(s): 55114731 Code(s): E86.0 - DEHYDRATION Status: Acute Current Visit: Yes (4) Alcohol withdrawal syndrome SNOMED Code(s): 617217587 Code(s): F10.239 - ALCOHOL DEPENDENCE WITH WITHDRAWAL, UNSPECIFIED Status: Acute Current Visit: No (5) Dyskinesia SNOMED Code(s): 8036793 Code(s): G24.9 - DYSTONIA, UNSPECIFIED Status: Acute Current Visit: No (6) MDD (major depressive disorder) SNOMED Code(s): 304331076 Code(s): F32.9 - MAJOR DEPRESSIVE DISORDER, SINGLE EPISODE, UNSPECIFIED Status: Acute Current Visit: No Qualifiers: Major depression recurrence: recurrent Active/Remission status: currently active (7) Hypomagnesemia SNOMED Code(s): 104111687 Code(s): E83.42 - HYPOMAGNESEMIA Status: Resolved Current Visit: No Annotation/Comment:: improving (8) Anemia SNOMED Code(s): 966671345 Code(s): D64.9 - ANEMIA, UNSPECIFIED Status: Acute Current Visit: Yes (9) Chronic abdominal pain SNOMED Code(s): 767355189 Code(s): R10.9 - UNSPECIFIED ABDOMINAL PAIN; G89.29 - OTHER CHRONIC PAIN Status: Acute Current Visit: Yes - Problem List Review Problem List Initiated/Reviewed/Updated: Yes - My Orders Last 24 Hours: My Active Orders 12/29/19 09:17 traMADol [Ultram] 50 mg PO Q8H PRN - Assessment Assessment:: Patient still has a CIWA score of 17. Speech is unintelligible.Hemoglobin down to 7.7 g/dl. I will give her 2 units of blood today, continue the protocol for CIWA. Consider CT of head if symptoms not improve. Advance diet to clear liquid. Repeat labs tomorrow morning. - Plan Plan:: It is my understanding that Zuleika is has interest in inpatient alcohol treatment. Awaiting a call on Wednesday from facility that is willing to accept her. I'll treat contionue treating her pain,with Tramadol
[2019-12-30] MEDS: Enoxaparin 30 MG/0.3 ML Syringe SUBCUT SCH (08:58)
[2019-12-30] MEDS: Potassium Chloride 20 MEQ Tab.ER PO SCH ×2 (09:01→21:35)
[2019-12-30] MEDS: Polyethylene Glycol 3350 Powder 17 GM Packet PO SCH (09:02)
[2019-12-30] MEDS: Folic Acid 1 MG Tab PO SCH (09:02)
[2019-12-30] MEDS: Metoprolol Succinate 25 MG Tab.ER PO SCH (09:02)
[2019-12-30] MEDS: Topiramate 50 MG Tab PO SCH ×2 (09:02→21:36)
[2019-12-30] MEDS: Thiamine 100 MG Tab PO SCH (09:05)
[2019-12-30] MEDS: traMADol 50 MG Tab PO PRN (09:05)
[2019-12-30] MEDS: Magnesium Oxide 400 MG Tab PO SCH (11:46)
[2019-12-30] MEDS: Multivitamin Tab PO SCH (11:46)
[2019-12-30] MEDS: Nicotine 14 MG/24 Hr Patch TRDERM SCH (17:23)
[2019-12-30] MEDS: Mirtazapine 30 MG Tab PO SCH (21:36)
[2019-12-31] MEDS: Pantoprazole 40 MG Tab.CR PO SCH ×2 (06:48→17:09)
[2019-12-31] MEDS: Sucralfate 1 GM Tab PO SCH ×4 (06:54→21:33)
[2019-12-31] MEDS: Polyethylene Glycol 3350 Powder 17 GM Packet PO SCH (08:23)
[2019-12-31] MEDS: Topiramate 50 MG Tab PO SCH ×2 (08:28→21:34)
[2019-12-31] MEDS: Enoxaparin 30 MG/0.3 ML Syringe SUBCUT SCH (08:28)
[2019-12-31] MEDS: Potassium Chloride 20 MEQ Tab.ER PO SCH ×2 (08:28→21:33)
[2019-12-31] MEDS: Folic Acid 1 MG Tab PO SCH (08:28)
[2019-12-31] MEDS: Metoprolol Succinate 25 MG Tab.ER PO SCH (08:28)
[2019-12-31] MEDS: Thiamine 100 MG Tab PO SCH (08:29)
[2019-12-31] MEDS: traMADol 50 MG Tab PO PRN ×2 (09:02→21:32)
--- NOTE | 2019-12-31 09:45 | PCM.PN ---
- General Info Date of Service: 12/31/19 Subjective Update: Complains of right upper quadrant sharp abdominal pain.Tramadol helped Functional Status: Reports: Pain Controlled - Review of Systems General: Reports: No Symptoms HEENT: Reports: No Symptoms Pulmonary: Reports: No Symptoms - Patient Data Vitals - Most Recent: Last Vital Signs Temp 98.0 F 12/31/19 08:00 Pulse 88 12/31/19 08:28 Resp 14 12/31/19 08:00 BP 133/74 12/31/19 08:28 Pulse Ox 97 12/31/19 08:00 Weight - Most Recent: 43.148 kg Med Orders - Current: Current Medications Bisacodyl (Dulcolax) 5 mg PO DAILY PRN PRN Reason: Constipation Last Admin: 12/24/19 18:24 Dose: 5 mg Enoxaparin Sodium (Lovenox) 30 mg SUBCUT Q24H [facility] Last Admin: 12/31/19 08:28 Dose: 30 mg Folic Acid (Folic Acid) 1 mg PO DAILY [facility] Last Admin: 12/31/19 08:28 Dose: 1 mg Ibuprofen (Motrin) 400 mg PO Q6H PRN PRN Reason: Headache Last Admin: 12/27/19 20:53 Dose: 400 mg Lorazepam (Ativan) 0 mg PO ASDIRECTED [facility]; Protocol Last Admin: 12/25/19 20:17 Dose: 1 mg Magnesium Oxide (Magnesium Oxide) 400 mg PO DAILY@1200 [facility] Last Admin: 12/30/19 11:46 Dose: 400 mg Melatonin (Melatonin) 3 mg PO BEDTIME PRN PRN Reason: SLEEP Last Admin: 12/27/19 20:53 Dose: 3 mg Metoprolol Succinate (Toprol Xl) 25 mg PO DAILY [facility] Last Admin: 12/31/19 08:28 Dose: 25 mg Mirtazapine (Remeron) 30 mg PO BEDTIME [facility] Last Admin: 12/30/19 21:36 Dose: 30 mg Multivitamins/Minerals/Vitamin C (Tab-A-Jocelin) 1 tab PO DAILY@1200 [facility] Last Admin: 12/30/19 11:46 Dose: 1 tab Nicotine (Habitrol) 14 mg TRDERM Q24H [facility] Last Admin: 12/30/19 17:23 Dose: 14 mg Pantoprazole Sodium (Protonix) 40 mg PO BIDAC [facility] Last Admin: 12/31/19 06:48 Dose: 40 mg Polyethylene Glycol (Miralax) 17 gm PO DAILY [facility] Last Admin: 12/31/19 08:23 Dose: 17 gm Potassium Chloride (Klor-Con M20) 20 meq PO BID [facility] Last Admin: 12/31/19 08:28 Dose: 20 meq Sucralfate (Carafate) 1 gm PO QIDACANDBED [facility] Last Admin: 12/31/19 06:54 Dose: 1 gm Thiamine HCl (Vitamin B-1) 100 mg PO DAILY [facility] Last Admin: 12/31/19 08:29 Dose: 100 mg Topiramate (Topamax) 25 mg PO BID [facility] Last Admin: 12/31/19 08:28 Dose: 25 mg Tramadol HCl (Ultram) 50 mg PO Q8H PRN PRN Reason: Breakthrough Pain Last Admin: 12/31/19 09:02 Dose: 50 mg Discontinued Medications Calcium Carbonate/Glycine (Tums) 500 mg PO Q48H [facility] Last Admin: 12/22/19 09:34 Dose: Not Given Ciprofloxacin (Ciprofloxacin Hcl) 500 mg PO BID [facility] Stop: 12/26/19 21:01 Last Admin: 12/23/19 09:46 Dose: 500 mg Ciprofloxacin (Ciprofloxacin Hcl) 500 mg PO BID [facility] Stop: 12/26/19 23:59 Last Admin: 12/26/19 20:51 Dose: 500 mg Enoxaparin Sodium (Lovenox) 30 mg SUBCUT Q24H [facility] Last Admin: 12/20/19 03:51 Dose: 30 mg Hydroxyzine HCl (Vistaril) 50 mg IM ONETIME ONE Stop: 12/20/19 01:46 Last Admin: 12/20/19 02:21 Dose: 50 mg Hydroxyzine HCl (Vistaril) 50 mg IM Q6H PRN PRN Reason: nausea/anxiety Hydroxyzine HCl (Atarax) 25 mg PO BEDTIME PRN PRN Reason: Insomnia Last Admin: 12/21/19 23:51 Dose: 25 mg Dextrose/Sodium Chloride (Dextrose 5%-Normal Saline) 1,000 mls @ 1,000 mls/hr IV ASDIRECTED [facility] Last Admin: 12/20/19 01:20 Dose: 1,000 mls/hr Thiamine HCl 100 mg/ Sodium (Chloride) 101 mls @ 202 mls/hr IV ONETIME ONE Stop: 12/20/19 01:04 Last Admin: 12/20/19 02:03 Dose: 202 mls/hr Sodium Chloride (Normal Saline) 1,000 mls @ 150 mls/hr IV ASDIRECTED [facility] Last Admin: 12/20/19 12:00 Dose: 150 mls/hr Sodium Chloride (Normal Saline) 1,000 mls @ 100 mls/hr IV ASDIRECTED [facility] Last Admin: 12/21/19 01:08 Dose: 100 mls/hr Sodium Chloride (Normal Saline) 250 mls @ 100 mls/hr IV ASDIRECTED [facility] Ciprofloxacin/Dextrose 400 mg/ (Premix) 200 mls @ 200 mls/hr IV BID [facility] Last Admin: 12/24/19 08:43 Dose: 200 mls/hr Sodium Chloride (Normal Saline) 1,000 mls @ 100 mls/hr IV ASDIRECTED [facility] Last Admin: 12/24/19 00:30 Dose: 100 mls/hr Iopamidol (Isovue-370 (76%)) 100 ml IV . DIRECTED ONE Stop: 12/20/19 09:09 Last Admin: 12/20/19 10:06 Dose: 40 ml Lorazepam (Ativan) 1 mg IVPUSH NOW STA Stop: 12/20/19 03:21 Last Admin: 12/20/19 03:39 Dose: 1 mg Metoprolol Succinate (Toprol Xl) 12.5 mg PO DAILY [facility] Last Admin: 12/25/19 10:13 Dose: 12.5 mg Morphine Sulfate (Morphine) 4 mg IVPUSH Q4H PRN PRN Reason: Breakthrough Pain Morphine Sulfate (Morphine) 2 mg IVPUSH Q4H PRN PRN Reason: Breakthrough Pain Last Admin: 12/22/19 01:11 Dose: 2 mg Multivitamins/Minerals/Vitamin C (Tab-A-Jocelin) 1 tab PO DAILY [facility] Last Admin: 12/22/19 08:46 Dose: 1 tab Nicotine (Habitrol) 14 mg TRDERM DAILY [facility] Last Admin: 12/26/19 18:59 Dose: 14 mg Non-Formulary Medication (Acamprosate [Campral]) 666 mg PO TID [facility] Last Admin: 12/20/19 12:27 Dose: Not Given Ondansetron HCl (Zofran Odt) 8 mg PO ONETIME ONE Stop: 12/20/19 00:58 Last Admin: 12/20/19 01:10 Dose: 8 mg Ondansetron HCl (Zofran) 4 mg IVPUSH Q4H PRN PRN Reason: Nausea/Vomiting Last Admin: 12/20/19 12:06 Dose: 4 mg Pantoprazole Sodium (Protonix Iv) 40 mg IV DAILY [facility] Last Admin: 12/22/19 08:46 Dose: 40 mg Pantoprazole Sodium (Protonix Iv) 40 mg IVPUSH Q12H [facility] Last Admin: 12/25/19 09:13 Dose: Not Given Pantoprazole Sodium (Protonix) 40 mg PO NOW ONE Stop: 12/22/19 23:01 Last Admin: 12/22/19 23:02 Dose: 40 mg Potassium Chloride (Klor-Con M20) 20 meq PO BID@1000,1200 [facility] Stop: 12/22/19 12:01 Last Admin: 12/22/19 12:07 Dose: 20 meq Sertraline HCl (Zoloft) 100 mg PO DAILY [facility] Last Admin: 12/26/19 08:26 Dose: 100 mg Sodium Chloride (Saline Flush) 10 ml FLUSH ASDIRECTED PRN PRN Reason: Keep Vein Open Last Admin: 12/24/19 17:38 Dose: 10 ml - Exam General: Alert HEENT: Pupils Equal Lungs: Clear to Auscultation Cardiovascular: Regular Rate Sepsis Event Note - Evaluation Sepsis Screening Result: No Definite Risk - Focused Exam Vital Signs: Vital Signs Temp Pulse Pulse Resp BP BP Pulse Ox 12/31/19 08:28 88 133/74 12/31/19 08:00 98.0 F 88 14 113/74 97 12/31/19 00:00 97.8 F 88 16 124/78 98 Date Exam was Performed: 12/31/19 Time Exam was Performed: 09:42 - Problem List & Annotations (1) Alcohol abuse with intoxication SNOMED Code(s): 54963162 Code(s): F10.129 - ALCOHOL ABUSE WITH INTOXICATION, UNSPECIFIED Status: Acute Current Visit: Yes (2) Cyclic vomiting syndrome Status: Acute Current Visit: Yes (3) Dehydration SNOMED Code(s): 91871132 Code(s): E86.0 - DEHYDRATION Status: Acute Current Visit: Yes (4) Alcohol withdrawal syndrome SNOMED Code(s): 761840020 Code(s): F10.239 - ALCOHOL DEPENDENCE WITH WITHDRAWAL, UNSPECIFIED Status: Acute Current Visit: No (5) Dyskinesia SNOMED Code(s): 2840386 Code(s): G24.9 - DYSTONIA, UNSPECIFIED Status: Acute Current Visit: No (6) MDD (major depressive disorder) SNOMED Code(s): 386613976 Code(s): F32.9 - MAJOR DEPRESSIVE DISORDER, SINGLE EPISODE, UNSPECIFIED Status: Acute Current Visit: No Qualifiers: Major depression recurrence: recurrent Active/Remission status: currently active (7) Hypomagnesemia SNOMED Code(s): 414720697 Code(s): E83.42 - HYPOMAGNESEMIA Status: Resolved Current Visit: No Annotation/Comment:: improving (8) Anemia SNOMED Code(s): 807801533 Code(s): D64.9 - ANEMIA, UNSPECIFIED Status: Acute Current Visit: Yes (9) Chronic abdominal pain SNOMED Code(s): 737345706 Code(s): R10.9 - UNSPECIFIED ABDOMINAL PAIN; G89.29 - OTHER CHRONIC PAIN Status: Acute Current Visit: Yes - Problem List Review Problem List Initiated/Reviewed/Updated: Yes - Assessment Assessment:: Patient still has a CIWA score of 17. Speech is unintelligible.Hemoglobin down to 7.7 g/dl. I will give her 2 units of blood today, continue the protocol for CIWA. Consider CT of head if symptoms not improve. Advance diet to clear liquid. Repeat labs tomorrow morning. - Plan Plan:: It is my understanding that Zuleika is has interest in inpatient alcohol treatment. Awaiting a call on Wednesday from facility that is willing to accept her. I'll treat contionue treating her pain,with Tramadol
[2019-12-31] MEDS: Magnesium Oxide 400 MG Tab PO SCH (11:02)
[2019-12-31] MEDS: Multivitamin Tab PO SCH (11:02)
[2019-12-31] MEDS: Nicotine 14 MG/24 Hr Patch TRDERM SCH (17:09)
[2019-12-31] MEDS: Ibuprofen 400 MG Tab PO PRN (17:11)
[2019-12-31] MEDS: Mirtazapine 30 MG Tab PO SCH (21:34)
[2020-01-01] MEDS: Ibuprofen 400 MG Tab PO PRN (03:30)
[2020-01-01] MEDS: Pantoprazole 40 MG Tab.CR PO SCH ×2 (06:34→17:48)
[2020-01-01] MEDS: Sucralfate 1 GM Tab PO SCH ×3 (06:34→17:48)
[2020-01-01 08:56] VITALS: BP 116/64; PULSE 74
[2020-01-01] MEDS: Metoprolol Succinate 25 MG Tab.ER PO SCH (09:17)
[2020-01-01] MEDS: Topiramate 50 MG Tab PO SCH (09:17)
[2020-01-01] MEDS: Thiamine 100 MG Tab PO SCH (09:17)
[2020-01-01] MEDS: Folic Acid 1 MG Tab PO SCH (09:17)
[2020-01-01] MEDS: Potassium Chloride 20 MEQ Tab.ER PO SCH (09:17)
[2020-01-01] MEDS: Polyethylene Glycol 3350 Powder 17 GM Packet PO SCH (09:18)
[2020-01-01] MEDS: Enoxaparin 30 MG/0.3 ML Syringe SUBCUT SCH (09:22)
[2020-01-01] MEDS: traMADol 50 MG Tab PO PRN (09:51)
[2020-01-01] MEDS: Magnesium Oxide 400 MG Tab PO SCH (11:36)
[2020-01-01] MEDS: Multivitamin Tab PO SCH (11:36)
[2020-01-01] MEDS: Nicotine 14 MG/24 Hr Patch TRDERM SCH (17:45)
--- NOTE | 2020-01-02 04:45 | DISCH ---
DISCHARGE DATE: 01/01/2020 REASON FOR ADMISSION: 1. Alcohol intoxication. 2. Alcohol abuse and dependence. 3. Withdrawal symptoms. 4. Depression. 5. Dyskinesia. 6. Cyclic vomiting syndrome. DISCHARGE DIAGNOSES: 1. Alcohol intoxication. 2. Alcohol abuse and dependence. 3. Withdrawal symptoms. 4. Depression. 5. Dyskinesia. 6. Cyclic vomiting syndrome. BRIEF HISTORY: This is a 64-year-old female who has a history of alcohol abuse. She was admitted having withdrawal symptoms and spent some time in the ICU initially and was transferred to the medical floor after a few days of detox. Social Work was consulted, and the plan was in place for her to go to an inpatient treating facility for alcohol dependence and chemical dependency, and initially she was agreeable, but at the end she declined. I will send her home on the following medications: 1. Metoprolol 25 mg a day. 2. Remeron 30 mg daily. 3. Pantoprazole 40 mg a day. 4. Thiamine 100 mg a day. 5. Zoloft 100 mg a day. 6. Multivitamin 1 a day. 7. Folic acid 1 mg daily. 8. She will also go home on aspirin 81 mg a day. FOLLOWUP: I advised her to see me in the office in 24 to 48 hours to discuss outpatient therapy. I spent more than 35 minutes in the discharge of the patient. /[id number] RAQUEL/ROMARIO
== END 2020-01-01 19:32 | disposition home health service (06) | DRG 897 ==
LOC: FB.ED 00:18 → FB.MS 03:18 → OBSVTOIN 09:06
PROVIDERS: ADMIT Emergency Medicine; ATTEND Family Medicine
PROC: 30233N1 Transfusion of Nonautologous Red Blood Cells into Peripheral Vein, Percutaneous Approach (ICD-10-PCS; principal; 2019-12-21)
DX: F10.129 Alcohol abuse with intoxication, unspecified (principal); N17.9 Acute kidney failure, unspecified; F10.239 Alcohol dependence with withdrawal, unspecified; F33.2 Major depressive disorder, recurrent severe without psychotic features; N39.0 Urinary tract infection, site not specified; F32.9 Major depressive disorder, single episode, unspecified; G24.9 Dystonia, unspecified; R11.15 Cyclical vomiting syndrome unrelated to migraine; H54.7 Unspecified visual loss; I10 Essential (primary) hypertension; K21.9 Gastro-esophageal reflux disease without esophagitis; R32 Unspecified urinary incontinence; M19.90 Unspecified osteoarthritis, unspecified site; M81.0 Age-related osteoporosis without current pathological fracture; F41.9 Anxiety disorder, unspecified; R27.0 Ataxia, unspecified; R41.9 Unspecified symptoms and signs involving cognitive functions and awareness; F17.200 Nicotine dependence, unspecified, uncomplicated; D64.9 Anemia, unspecified; D69.6 Thrombocytopenia, unspecified; F17.210 Nicotine dependence, cigarettes, uncomplicated; E86.0 Dehydration; E83.42 Hypomagnesemia; E87.6 Hypokalemia; Z88.2 Allergy status to sulfonamides; Z79.82 Long term (current) use of aspirin; Z79.899 Other long term (current) drug therapy; Z87.01 Personal history of pneumonia (recurrent); Z87.11 Personal history of peptic ulcer disease
CPT/HCPCS: 36415; 71045; 80053 ×2; 80307; 82150; 83690; 83735; 84100; 84484; 85025 ×2; 93005; 96361; 96365; 96372; 99284; 99285; A9270; J1650; J2060; J3410; J3411; J7030; J7050; 36430; 74177; 80048; 80305-QW; 81001; 82270; 85610; 86850; 86900; 86901; 86920; 86922; 87086; 87088; 87186; 96375; 97112-GP; 97116-GP; 97161-GP; 97165-GO; 97530-GO; 97530-GP; C9113; J0744; J2270; J2405; P9016; Q3014; Q9967

== ENCOUNTER 2020-02-12 12:48 | Emergency (ER) | payer MEDICARE ==
[2020-02-12] MEDS ORDERED: Sodium Chloride 0.9% 10 ML Syringe FLUSH PRN (13:14)
[2020-02-12] MEDS ORDERED: Ondansetron 4 MG/2 ML SDV IVPUSH ONE (13:15)
[2020-02-12] MEDS ORDERED: Sodium Chloride 0.9% 1,000 ML IV SCH ×2 (13:15→14:45)
[2020-02-12] MEDS ORDERED: LORazepam 2 MG/ML SDV IVPUSH STA (13:15)
[2020-02-12] MEDS ORDERED: hydrOXYzine HCl 50 MG/ML SDV IM ONE (13:17)
[2020-02-12] MEDS ORDERED: Thiamine 100 MG in Sodium Chloride 0.9% 100 ML IV ONE (14:08)
[2020-02-12] MEDS ORDERED: Pantoprazole 80 MG in Sodium Chloride 0.9% 100 ML IV ONE (15:29)
--- NOTE | 2020-02-12 15:49 | EDM.PDOC ---
ED HPI GENERAL MEDICAL PROBLEM - General Chief Complaint: Gastrointestinal Problem Stated Complaint: persistent N/V Time Seen by Provider: 02/12/20 12:50 Source of Information: Reports: Patient History Limitations: Reports: No Limitations - History of Present Illness INITIAL COMMENTS - FREE TEXT/NARRATIVE: Patient presented to the ED because of persistent N/V. She has a history of alcohol and drug use and her last drink was yesterday. Whenever she drinks she goes into cyclic vomiting and had a seizure related to alcohol intoxication and withdrawal. She denies any abdominal pain,bloody stools, recent cough or cold fever and chills. - Related Data Allergies Allergy/AdvReac Type Severity Reaction Status Date / Time Sulfa (Sulfonamide Allergy Rash Verified 12/20/19 03:47 Antibiotics) Home Meds: Home Meds Multivitamin [Multi-Vitamin Daily] 1 tab PO DAILY 10/09/13 [History] Aspirin 81 mg PO DAILY 07/26/18 [History] Spironolactone [Aldactone] 25 mg PO DAILY 03/17/19 [History] Folic Acid 1 mg PO DAILY 05/03/19 [History] Pantoprazole Sodium [Protonix] 40 mg PO DAILY 05/03/19 [History] Ondansetron [Zofran ODT] 4 mg PO ONETIME PRN #15 tab.dis 05/09/19 [Rx] Calcium Carb, Citrate/Vit D3 [Citracal + D ER] 1 tab PO DAILY 12/20/19 [History] Potassium Chloride 20 meq PO DAILY 12/20/19 [History] Sertraline [Zoloft] 100 mg PO DAILY 12/20/19 [History] Metoprolol Succinate [Toprol XL] 25 mg PO DAILY #30 tab.er 01/01/20 [Rx] Mirtazapine [Remeron] 30 mg PO BEDTIME #30 tablet 01/01/20 [Rx] Pantoprazole [ProTONIX] 40 mg PO BIDAC #30 tab.cr 01/01/20 [Rx] Thiamine [Vitamin B-1] 100 mg PO DAILY #30 tablet 01/01/20 [Rx] Past Medical History HEENT History: Reports: Cataract, Impaired Vision Cardiovascular History: Reports: Hypertension, Other (See Below) Other Cardiovascular History: states has irregular HR at times Respiratory History: Reports: Bronchitis, Recurrent, Pneumonia, Recurrent, Other (See Below) Other Respiratory History: TOBACCO ABUSE Gastrointestinal History: Reports: GERD, Pancreatitis, PUD Other Gastrointestinal History: "prolapsed colon" Genitourinary History: Reports: Urinary Incontinence Musculoskeletal History: Reports: Arthritis, Osteoporosis, Other (See Below) Other Musculoskeletal History: MOVEMENT DISORDER, ATAXIA Neurological History: Reports: Other (See Below) Other Neuro History: DT's, MOVEMENT DISORDER Psychiatric History: Reports: Addiction, Anxiety, Depression, Hallucinations, Other (See Below) Other Psychiatric History: drug and alcohol addiction Endocrine/Metabolic History: Reports: Osteoporosis Hematologic History: Reports: Anemia, Blood Transfusion(s), Other (See Below) Other Hematologic History: leukopenia, THROMBOCYTOPENIA. Pt. here for a blood transfusion and low hemoglobin Immunologic History: Reports: None Oncologic (Cancer) History: Reports: None Dermatologic History: Reports: None - Infectious Disease History Infectious Disease History: Reports: Chicken Pox, Measles, Mumps - Past Surgical History Head Surgeries/Procedures: Reports: None HEENT Surgical History: Reports: None Cardiovascular Surgical History: Reports: None Respiratory Surgical History: Reports: None GI Surgical History: Reports: Colonoscopy, EGD, Other (See Below) Other GI Surgeries/Procedures: HX OF FEEDING TUBE - HAS BEEN REMOVED. Female Surgical History: Reports: None Endocrine Surgical History: Reports: None Neurological Surgical History: Reports: None Musculoskeletal Surgical History: Reports: Other (See Below) Other Musculoskeletal Surgeries/Procedures:: TOE SURGERY Oncologic Surgical History: Reports: None Dermatological Surgical History: Reports: None Social & Family History - Family History Family Medical History: Noncontributory - Caffeine Use Caffeine Use: Reports: Coffee Other Caffeine Use: 2-3 CUPS DAILY - Living Situation & Occupation Living situation: Reports: Alone Occupation: Disabled ED ROS GENERAL - Review of Systems Review Of Systems: See Below Constitutional: Reports: No Symptoms HEENT: Reports: No Symptoms Respiratory: Reports: No Symptoms Cardiovascular: Reports: No Symptoms Endocrine: Reports: No Symptoms GI/Abdominal: Reports: Nausea, Vomiting : Reports: No Symptoms Musculoskeletal: Reports: No Symptoms Skin: Reports: No Symptoms Neurological: Reports: No Symptoms Psychiatric: Reports: No Symptoms Hematologic/Lymphatic: Reports: No Symptoms ED EXAM, GI/ABD - Physical Exam Exam: See Below Exam Limited By: No Limitations General Appearance: Alert, No Apparent Distress Ears: Normal External Exam, Normal Canal Nose: Normal Inspection, Normal Mucosa Throat/Mouth: Normal Inspection, Normal Lips, Normal Teeth Head: Atraumatic, Normocephalic Neck: Normal Inspection, Supple, Non-Tender, Full Range of Motion Respiratory/Chest: No Respiratory Distress, Lungs Clear, Normal Breath Sounds Cardiovascular: Normal Peripheral Pulses, No JVD, No Murmur, Tachycardia GI/Abdominal Exam: Normal Bowel Sounds, Other (epigastric tenderness) Back Exam: Normal Inspection Extremities: Normal Inspection Course - Vital Signs Text/Narrative:: Labs/CXR/EKG was discussed with patient NS 1 L bolus Thiamine 100 mg IV Protonix 80 mg IV ativan 2 mg IV Vistaril 80 mg IV Covid-pending - Orders/Labs/Meds Orders: Active Orders 24 hr Category Date Time Status EKG Documentation Completion [RC] ASDIRECTED Care 02/12/20 14:07 Active Chest 1V Frontal [CR] Stat Exams 02/12/20 14:07 Taken ABG [BLOOD GAS ARTERIAL] [BG] Stat Lab 02/12/20 15:18 Ordered CBC WITH AUTO DIFF [HEME] Stat Lab 02/12/20 14:08 Results CORONAVIRUS COVID-19 PCR PHL Stat Lab 02/12/20 15:30 Ordered DRUG SCREEN, URINE ALERE [URCHEM] Stat Lab 02/12/20 13:19 Ordered Pantoprazole [ProTONIX IV] 80 mg Med 02/12/20 15:29 Ordered Sodium Chloride 0.9% [Normal Saline] 100 ml IV .BOLUS Sodium Chloride 0.9% [Normal Saline] 1,000 ml Med 02/12/20 13:15 Active IV ASDIRECTED Sodium Chloride 0.9% [Normal Saline] 1,000 ml Med 02/12/20 14:45 Active IV ASDIRECTED Sodium Chloride 0.9% [Saline Flush] Med 02/12/20 13:14 Active 10 ml FLUSH ASDIRECTED PRN Saline Lock Insert [OM.PC] Routine Oth 02/12/20 13:14 Ordered EKG 12 Lead [EK] Routine Ther 02/12/20 14:07 Ordered Medication Orders Sodium Chloride (Normal Saline) 1,000 mls @ 999 mls/hr IV ASDIRECTED [facility] Last Admin: 02/12/20 13:20 Dose: 999 mls/hr Documented by: JUDIE Sodium Chloride (Normal Saline) 1,000 mls @ 150 mls/hr IV ASDIRECTED [facility] Last Admin: 02/12/20 14:30 Dose: 150 mls/hr Documented by: JUDIE Pantoprazole Sodium 80 mg/ (Sodium Chloride) 100 mls @ 200 mls/hr IV .BOLUS ONE Stop: 02/12/20 15:58 Sodium Chloride (Saline Flush) 10 ml FLUSH ASDIRECTED PRN PRN Reason: Keep Vein Open Last Admin: 02/12/20 14:00 Dose: 10 ml Documented by: JUDIE Labs: Laboratory Tests 02/12/20 02/12/20 02/12/20 Range/Units 14:00 14:00 14:08 WBC 7.7 (4.5-12.0) X10-3/uL RBC 3.40 (3.23-5.20) x10(6)uL Hgb 9.8 L (11.5-15.5) g/dL Hct 31.0 (30.0-51.3) % MCV 91.3 (80-96) fL MCH 28.7 (27.7-33.6) pg MCHC 31.5 L (32.2-35.4) g/dL RDW 21.9 H (11.5-15.5) % Plt Count 431 H (125-369) X10(3)uL MPV 6.4 L (7.4-10.4) fL Add Manual Diff Yes Sodium (135-145) mmol/L Potassium (3.5-5.3) mmol/L Chloride (100-110) mmol/L Carbon Dioxide (21-32) mmol/L BUN (7-18) mg/dL Creatinine (0.55-1.02) mg/dL Est Cr Clr Drug Dosing Estimated GFR (MDRD) (>60) BUN/Creatinine Ratio (9-20) Glucose (80-116) mg/dL Lactic Acid 6.4 H* (0.4-2.0) mmol/L Calcium (8.6-10.2) mg/dL Magnesium 1.9 (1.8-2.5) mg/dL Total Bilirubin (0.1-1.3) mg/dL AST (5-25) IU/L ALT (12-36) U/L Alkaline Phosphatase (56-112) IU/L Total Protein (6.0-8.0) g/dL Albumin (3.2-4.6) g/dL Globulin g/dL Albumin/Globulin Ratio Amylase (25-115) U/L Lipase (73-393) U/L Ethyl Alcohol (<0.03) % 02/12/20 02/12/20 02/12/20 Range/Units 14:08 14:08 14:08 WBC (4.5-12.0) X10-3/uL RBC (3.23-5.20) x10(6)uL Hgb (11.5-15.5) g/dL Hct (30.0-51.3) % MCV (80-96) fL MCH (27.7-33.6) pg MCHC (32.2-35.4) g/dL RDW (11.5-15.5) % Plt Count (125-369) X10(3)uL MPV (7.4-10.4) fL Add Manual Diff Sodium 141 (135-145) mmol/L Potassium 3.5 (3.5-5.3) mmol/L Chloride 103 D (100-110) mmol/L Carbon Dioxide 9 L* (21-32) mmol/L BUN 17 D (7-18) mg/dL Creatinine 0.7 (0.55-1.02) mg/dL Est Cr Clr Drug Dosing TNP Estimated GFR (MDRD) > 60 (>60) BUN/Creatinine Ratio 24.3 H (9-20) Glucose 103 (80-116) mg/dL Lactic Acid (0.4-2.0) mmol/L Calcium 7.6 L (8.6-10.2) mg/dL Magnesium (1.8-2.5) mg/dL Total Bilirubin 0.4 (0.1-1.3) mg/dL AST 43 H (5-25) IU/L ALT 25 D (12-36) U/L Alkaline Phosphatase 81 (56-112) IU/L Total Protein 7.0 (6.0-8.0) g/dL Albumin 3.6 (3.2-4.6) g/dL Globulin 3.4 g/dL Albumin/Globulin Ratio 1.1 Amylase 119 H (25-115) U/L Lipase 178 (73-393) U/L Ethyl Alcohol 0.04 H (<0.03) % Meds: Medications Generic Name Dose Route Start Last Admin Trade Name Freq PRN Reason Stop Dose Admin Sodium Chloride 1,000 mls @ 999 mls/hr 02/12/20 13:15 02/12/20 13:20 Normal Saline IV 999 mls/hr ASDIRECTED ROMEL Administration Sodium Chloride 1,000 mls @ 150 mls/hr 02/12/20 14:45 02/12/20 14:30 Normal Saline IV 150 mls/hr ASDIRECTED ROMEL Administration Pantoprazole Sodium 80 mg/ 100 mls @ 200 mls/hr 02/12/20 15:29 Sodium Chloride IV 02/12/20 15:58 .BOLUS ONE Sodium Chloride 10 ml 02/12/20 13:14 02/12/20 14:00 Saline Flush FLUSH 10 ml ASDIRECTED PRN Administration Keep Vein Open Discontinued Medications Generic Name Dose Route Start Last Admin Trade Name Olman PRN Reason Stop Dose Admin Hydroxyzine HCl 50 mg 02/12/20 13:17 02/12/20 14:00 Vistaril IM 02/12/20 13:18 50 mg ONETIME ONE Administration Thiamine HCl 100 mg/ Sodium 101 mls @ 202 mls/hr 02/12/20 14:08 02/12/20 14:35 Chloride IV 02/12/20 14:09 202 mls/hr ONETIME ONE Administration Lorazepam 2 mg 02/12/20 13:15 02/12/20 13:53 Ativan IVPUSH 02/12/20 13:16 2 mg NOW STA Administration Ondansetron HCl 8 mg 02/12/20 13:15 02/12/20 13:51 Zofran IVPUSH 02/12/20 13:16 8 mg ONETIME ONE Administration Departure - Departure Time of Disposition: 16:30 Disposition: DC/Tfer to Acute Hospital 02 Condition: Good Clinical Impression: Peptic ulcer, Lactic acidosis, Alcohol abuse with intoxication, Anemia - Discharge Information Referrals: Aden Lemus MD [Primary Care Provider] - Forms: ED Department Discharge - My Orders Last 24 Hours: My Active Orders 02/12/20 13:14 Sodium Chloride 0.9% [Saline Flush] 10 ml FLUSH ASDIRECTED PRN Saline Lock Insert [OM.PC] Routine 02/12/20 13:15 Sodium Chloride 0.9% [Normal Saline] 1,000 ml IV ASDIRECTED 02/12/20 13:19 DRUG SCREEN, URINE ALERE [URCHEM] Stat 02/12/20 14:07 EKG Documentation Completion [RC] ASDIRECTED Chest 1V Frontal [CR] Stat EKG 12 Lead [EK] Routine 02/12/20 14:08 CBC WITH AUTO DIFF [HEME] Stat 02/12/20 14:45 Sodium Chloride 0.9% [Normal Saline] 1,000 ml IV ASDIRECTED 02/12/20 15:18 ABG [BLOOD GAS ARTERIAL] [BG] Stat 02/12/20 15:29 Pantoprazole [ProTONIX IV] 80 mg Sodium Chloride 0.9% [Normal Saline] 100 ml IV .BOLUS 02/12/20 15:30 CORONAVIRUS COVID-19 PCR PHL Stat - Assessment/Plan Last 24 Hours: My Active Orders 02/12/20 13:14 Sodium Chloride 0.9% [Saline Flush] 10 ml FLUSH ASDIRECTED PRN Saline Lock Insert [OM.PC] Routine 02/12/20 13:15 Sodium Chloride 0.9% [Normal Saline] 1,000 ml IV ASDIRECTED 02/12/20 13:19 DRUG SCREEN, URINE ALERE [URCHEM] Stat 02/12/20 14:07 EKG Documentation Completion [RC] ASDIRECTED Chest 1V Frontal [CR] Stat EKG 12 Lead [EK] Routine 02/12/20 14:08 CBC WITH AUTO DIFF [HEME] Stat 02/12/20 14:45 Sodium Chloride 0.9% [Normal Saline] 1,000 ml IV ASDIRECTED 02/12/20 15:18 ABG [BLOOD GAS ARTERIAL] [BG] Stat 02/12/20 15:29 Pantoprazole [ProTONIX IV] 80 mg Sodium Chloride 0.9% [Normal Saline] 100 ml IV .BOLUS 02/12/20 15:30 CORONAVIRUS COVID-19 PCR PHL Stat
[2020-02-12] MEDS ORDERED: Sodium Chloride 0.9% 1,000 ML IV ONE (17:32)
[2020-02-12 17:42] VITALS: BP 133/76; PULSE 101
== END 2020-02-12 19:05 ==
LOC: FB.ED 12:48
DX: K27.9 Peptic ulcer, site unspecified, unspecified as acute or chronic, without hemorrhage or perforation (principal); D64.9 Anemia, unspecified; E87.2 Acidosis; F10.129 Alcohol abuse with intoxication, unspecified; I10 Essential (primary) hypertension; M19.90 Unspecified osteoarthritis, unspecified site; F41.9 Anxiety disorder, unspecified; F32.9 Major depressive disorder, single episode, unspecified; Z20.828 Contact with and (suspected) exposure to other viral communicable diseases; Z88.2 Allergy status to sulfonamides; Z79.82 Long term (current) use of aspirin; Z79.899 Other long term (current) drug therapy
CPT/HCPCS: 36415; 36600; 71045; 80053; 80305; 80307; 82150; 82803; 83605; 83690; 83735; 85025; 93005; 96361; 96365; 96372; 96375; 99285; C9113; J2060; J2405; J3410; J3411; J7030; J7050; U0002

== ENCOUNTER 2020-05-03 08:26 | Emergency (ER) | payer MEDICARE, OTHER ==
[2020-05-03] MEDS: Ondansetron 4 MG/2 ML SDV IVPUSH ONE (09:10)
[2020-05-03] MEDS: Sodium Chloride 0.9% 1,000 ML IV ONE (09:10)
--- NOTE | 2020-05-03 09:10 | EDM.PDOC ---
ED HPI GENERAL MEDICAL PROBLEM - General Chief Complaint: Gastrointestinal Problem Stated Complaint: Nausea, Vomiting,diarrhea, abdominal pain and generalized weakness. Time Seen by Provider: 05/03/20 08:55 Source of Information: Reports: Patient History Limitations: Reports: No Limitations - History of Present Illness INITIAL COMMENTS - FREE TEXT/NARRATIVE: 64 yo F with prior h/o Chronic ETOH abuse (sober since November), Pancreatitis as well as other problems listed in her Chart. Presented to the ER with 2 day h/o N/V/D and abdominal pain associated with generalized weakness. Symptoms started insidiously and go progressively worse, Vomited several times and appetite has been decreased. Also had several bouts of Loose watery stools. No fever. Patient has occasional cough which is mostly dry. She has h/o chronic/Ongoing Tobacco abuse. Reports abdominal pain which she rates as 7/10 and described as sharp mid abdominal pain. Has been feeling weak for the past few days. No fever. Denied any contact with any patient with COVID 19. Presented to the ER due to worsening symptoms. Onset Date: 05/01/20 Duration: Day(s): (started 2 days ago), Getting Worse Location: Reports: Abdomen Quality: Reports: Sharp Severity: Severe Associated Symptoms: Reports: Loss of Appetite, Nausea/Vomiting, Weakness Abdominal Pain Score (Numeric/FACES): 9 - Related Data Allergies Allergy/AdvReac Type Severity Reaction Status Date / Time Sulfa (Sulfonamide Allergy Rash Verified 05/03/20 08:39 Antibiotics) Home Meds: Home Meds Multivitamin [Multi-Vitamin Daily] 1 tab PO DAILY 10/09/13 [History] Aspirin 81 mg PO DAILY 07/26/18 [History] Spironolactone [Aldactone] 25 mg PO DAILY 03/17/19 [History] Folic Acid 1 mg PO DAILY 05/03/19 [History] Pantoprazole Sodium [Protonix] 40 mg PO DAILY 05/03/19 [History] Ondansetron [Zofran ODT] 4 mg PO ONETIME PRN #15 tab.dis 05/09/19 [Rx] Calcium Carb, Citrate/Vit D3 [Citracal + D ER] 1 tab PO DAILY 12/20/19 [History] Potassium Chloride 20 meq PO DAILY 12/20/19 [History] Sertraline [Zoloft] 100 mg PO DAILY 12/20/19 [History] Metoprolol Succinate [Toprol XL] 25 mg PO DAILY #30 tab.er 01/01/20 [Rx] Mirtazapine [Remeron] 30 mg PO BEDTIME #30 tablet 01/01/20 [Rx] Pantoprazole [ProTONIX] 40 mg PO BIDAC #30 tab.cr 01/01/20 [Rx] Thiamine [Vitamin B-1] 100 mg PO DAILY #30 tablet 01/01/20 [Rx] Hydrocodone/Acetaminophen [[place] 5-325 Tablet] 1 each PO .Q6H PRN #20 tablet 05/03/20 [Rx] ondansetron HCL [Zofran] 4 mg PO .Q6H PRN #20 tablet 05/03/20 [Rx] Past Medical History HEENT History: Reports: Cataract, Impaired Vision Cardiovascular History: Reports: Hypertension, Other (See Below) Other Cardiovascular History: states has irregular HR at times Respiratory History: Reports: Bronchitis, Recurrent, Pneumonia, Recurrent, Other (See Below) Other Respiratory History: TOBACCO ABUSE Gastrointestinal History: Reports: GERD, Pancreatitis, PUD Other Gastrointestinal History: "prolapsed colon" Genitourinary History: Reports: Urinary Incontinence Musculoskeletal History: Reports: Arthritis, Osteoporosis, Other (See Below) Other Musculoskeletal History: MOVEMENT DISORDER, ATAXIA Neurological History: Reports: Other (See Below) Other Neuro History: DT's, MOVEMENT DISORDER Psychiatric History: Reports: Addiction, Anxiety, Depression, Hallucinations, Other (See Below) Other Psychiatric History: drug and alcohol addiction Endocrine/Metabolic History: Reports: Osteoporosis Hematologic History: Reports: Anemia, Blood Transfusion(s), Other (See Below) Other Hematologic History: leukopenia, THROMBOCYTOPENIA. Pt. here for a blood transfusion and low hemoglobin Immunologic History: Reports: None Oncologic (Cancer) History: Reports: None Dermatologic History: Reports: None - Infectious Disease History Infectious Disease History: Reports: Chicken Pox, Measles, Mumps - Past Surgical History Head Surgeries/Procedures: Reports: None HEENT Surgical History: Reports: None Cardiovascular Surgical History: Reports: None Respiratory Surgical History: Reports: None GI Surgical History: Reports: Colonoscopy, EGD, Other (See Below) Other GI Surgeries/Procedures: HX OF FEEDING TUBE - HAS BEEN REMOVED. Female Surgical History: Reports: None Endocrine Surgical History: Reports: None Neurological Surgical History: Reports: None Musculoskeletal Surgical History: Reports: Other (See Below) Other Musculoskeletal Surgeries/Procedures:: TOE SURGERY Oncologic Surgical History: Reports: None Dermatological Surgical History: Reports: None Social & Family History - Family History Family Medical History: Noncontributory - Caffeine Use Caffeine Use: Reports: Coffee Other Caffeine Use: 2-3 CUPS DAILY - Living Situation & Occupation Living situation: Reports: Alone Occupation: Disabled ED ROS GENERAL - Review of Systems Review Of Systems: See Below Constitutional: Reports: Malaise, Weakness, Fatigue, Decreased Appetite HEENT: Reports: No Symptoms Respiratory: Reports: No Symptoms Cardiovascular: Reports: No Symptoms Endocrine: Reports: No Symptoms GI/Abdominal: Reports: Abdominal Pain, Nausea, Vomiting : Reports: No Symptoms Musculoskeletal: Reports: No Symptoms Skin: Reports: No Symptoms Neurological: Reports: No Symptoms Psychiatric: Reports: No Symptoms Hematologic/Lymphatic: Reports: No Symptoms Immunologic: Reports: No Symptoms ED EXAM, GI/ABD - Physical Exam Exam: See Below Exam Limited By: No Limitations General Appearance: Alert, WD/WN, No Apparent Distress Eyes: Bilateral: Normal Appearance, EOMI Ears: Normal External Exam, Normal Canal, Hearing Grossly Normal, Normal TMs Nose: Normal Inspection, Normal Mucosa, No Blood Throat/Mouth: Normal Inspection, Normal Lips, Normal Teeth, Normal Gums, Normal Oropharynx, Normal Voice, No Airway Compromise Head: Atraumatic, Normocephalic Neck: Normal Inspection, Supple, Non-Tender, Full Range of Motion Respiratory/Chest: No Respiratory Distress, Lungs Clear, Normal Breath Sounds, No Accessory Muscle Use, Chest Non-Tender Cardiovascular: Normal Peripheral Pulses, Regular Rate, Rhythm, No Edema, No Gallop, No JVD, No Murmur, No Rub GI/Abdominal Exam: Normal Bowel Sounds, Soft, Non-Tender, No Organomegaly, No Distention, No Abnormal Bruit, No Mass, Pelvis Stable Back Exam: Normal Inspection, Full Range of Motion Extremities: Normal Inspection, Normal Range of Motion, Non-Tender, No Pedal Edema, Normal Capillary Refill Neurological: Alert, Oriented, CN II-XII Intact, Normal Cognition, Normal Gait, Normal Reflexes, No Motor/Sensory Deficits Psychiatric: Normal Affect, Normal Mood Skin Exam: Warm, Dry, Intact, Normal Color, No Rash Lymphatic: No Adenopathy Course - Vital Signs Last Recorded V/S: Last Vital Signs Temp 36.7 C 05/03/20 08:48 Pulse 95 05/03/20 08:52 Resp 20 05/03/20 08:52 BP 147/75 H 05/03/20 08:52 Pulse Ox 97 05/03/20 08:52 - Orders/Labs/Meds Labs: Laboratory Tests 05/03/20 05/03/20 05/03/20 Range/Units 08:32 08:32 08:32 WBC 5.7 (4.5-12.0) X10-3/uL RBC 3.31 (3.23-5.20) x10(6)uL Hgb 8.5 L (11.5-15.5) g/dL Hct 27.1 L (30.0-51.3) % MCV 81.9 (80-96) fL MCH 25.7 L (27.7-33.6) pg MCHC 31.5 L (32.2-35.4) g/dL RDW 19.4 H (11.5-15.5) % Plt Count 272 (125-369) X10(3)uL MPV 6.7 L (7.4-10.4) fL Add Manual Diff Yes Neutrophils % (Manual) 64 (46-82) % Band Neutrophils % 2 (0-6) % Lymphocytes % (Manual) 20 (13-37) % Monocytes % (Manual) 7 (4-12) % Eosinophils % (Manual) 4 (0-5) % Basophils % (Manual) 2 (0-2) % Metamyelocytes % 1 H (0-0) % Anisocytosis Moderate H Sodium 138 (135-145) mmol/L Potassium 3.1 L (3.5-5.3) mmol/L Chloride 100 (100-110) mmol/L Carbon Dioxide 26 (21-32) mmol/L BUN 13 (7-18) mg/dL Creatinine 0.5 L (0.55-1.02) mg/dL Est Cr Clr Drug Dosing TNP Estimated GFR (MDRD) > 60 (>60) BUN/Creatinine Ratio 26.0 H (9-20) Glucose 101 (80-116) mg/dL Calcium 8.9 (8.6-10.2) mg/dL Magnesium (1.8-2.5) mg/dL Total Bilirubin 0.8 (0.1-1.3) mg/dL AST 33 H D (5-25) IU/L ALT 18 D (12-36) U/L Alkaline Phosphatase 100 (56-112) IU/L C-Reactive Protein (0.5-0.9) mg/dL Total Protein 7.1 (6.0-8.0) g/dL Albumin 3.5 (3.2-4.6) g/dL Globulin 3.6 g/dL Albumin/Globulin Ratio 1.0 Lipase 154 (73-393) U/L Urine Color (YELLOW) Urine Appearance (CLEAR) Urine pH (5.0-6.5) Ur Specific [place] (1.010-1.025) Urine Protein (NEGATIVE) mg/dL Urine Glucose (UA) (NORMAL) mg/dL Urine Ketones (NEGATIVE) mg/dL Urine Occult Blood (NEGATIVE) Urine Nitrite (NEGATIVE) Urine Bilirubin (NEGATIVE) Urine Urobilinogen (NEGATIVE) mg/dL Ur Leukocyte Esterase (NEGATIVE) Urine RBC (0-5) Urine WBC (0-5) Ur Squamous Epith Cells (NS,R,O) Urine Bacteria (NS) 05/03/20 05/03/20 05/03/20 Range/Units 08:32 08:32 09:58 WBC (4.5-12.0) X10-3/uL RBC (3.23-5.20) x10(6)uL Hgb (11.5-15.5) g/dL Hct (30.0-51.3) % MCV (80-96) fL MCH (27.7-33.6) pg MCHC (32.2-35.4) g/dL RDW (11.5-15.5) % Plt Count (125-369) X10(3)uL MPV (7.4-10.4) fL Add Manual Diff Neutrophils % (Manual) (46-82) % Band Neutrophils % (0-6) % Lymphocytes % (Manual) (13-37) % Monocytes % (Manual) (4-12) % Eosinophils % (Manual) (0-5) % Basophils % (Manual) (0-2) % Metamyelocytes % (0-0) % Anisocytosis Sodium (135-145) mmol/L Potassium (3.5-5.3) mmol/L Chloride (100-110) mmol/L Carbon Dioxide (21-32) mmol/L BUN (7-18) mg/dL Creatinine (0.55-1.02) mg/dL Est Cr Clr Drug Dosing Estimated GFR (MDRD) (>60) BUN/Creatinine Ratio (9-20) Glucose (80-116) mg/dL Calcium (8.6-10.2) mg/dL Magnesium 1.8 (1.8-2.5) mg/dL Total Bilirubin (0.1-1.3) mg/dL AST (5-25) IU/L ALT (12-36) U/L Alkaline Phosphatase (56-112) IU/L C-Reactive Protein 2.0 H (0.5-0.9) mg/dL Total Protein (6.0-8.0) g/dL Albumin (3.2-4.6) g/dL Globulin g/dL Albumin/Globulin Ratio Lipase (73-393) U/L Urine Color Yellow (YELLOW) Urine Appearance Slightly cloudy (CLEAR) Urine pH 8.0 H (5.0-6.5) Ur Specific [place] 1.015 (1.010-1.025) Urine Protein Negative (NEGATIVE) mg/dL Urine Glucose (UA) Normal (NORMAL) mg/dL Urine Ketones 15 H (NEGATIVE) mg/dL Urine Occult Blood Negative (NEGATIVE) Urine Nitrite Negative (NEGATIVE) Urine Bilirubin Negative (NEGATIVE) Urine Urobilinogen Normal (NEGATIVE) mg/dL Ur Leukocyte Esterase Negative (NEGATIVE) Urine RBC 0-5 (0-5) Urine WBC 0-5 (0-5) Ur Squamous Epith Cells Occasional (NS,R,O) Urine Bacteria Few H (NS) Meds: Medications Discontinued Medications Generic Name Dose Route Start Last Admin Trade Name Freq PRN Reason Stop Dose Admin Sodium Chloride 1,000 mls @ 1,000 mls/hr 05/03/20 08:48 05/03/20 09:10 Normal Saline IV 05/03/20 09:47 1,000 mls/hr .BOLUS ONE Administration Iopamidol 100 ml 05/03/20 09:32 05/03/20 09:42 Isovue-370 (76%) IV 05/03/20 09:33 75 ml . DIRECTED ONE Administration Morphine Sulfate 2 mg 05/03/20 08:50 05/03/20 09:13 Morphine IVPUSH 05/03/20 08:51 2 mg ONETIME ONE Administration Morphine Sulfate 2 mg 05/03/20 11:31 Morphine IVPUSH 05/03/20 11:32 ONETIME ONE Ondansetron HCl 4 mg 05/03/20 08:50 05/03/20 09:10 Zofran IVPUSH 05/03/20 08:51 4 mg ONETIME ONE Administration Potassium Chloride 40 meq 05/03/20 09:34 05/03/20 11:03 Klor-Con M20 PO 05/03/20 09:35 40 meq ONETIME ONE Administration Departure - Departure Time of Disposition: 11:46 Disposition: Home, Self-Care 01 Condition: Good Clinical Impression: Gastroenteritis, Chronic abdominal pain - Discharge Information *PRESCRIPTION DRUG MONITORING PROGRAM REVIEWED*: No *COPY OF PRESCRIPTION DRUG MONITORING REPORT IN PATIENT KISHAN: No Prescriptions: Hydrocodone/Acetaminophen [[place] 5-325 Tablet] 1 each PO .Q6H PRN #20 tablet PRN Reason: Pain ondansetron HCL [Zofran] 4 mg PO .Q6H PRN #20 tablet PRN Reason: Nausea Instructions: Viral Gastroenteritis, Adult, [id number], Nausea and Vomiting, Adult, [id number] Referrals: PCP,None [Ordering Only Provider] - Forms: ED Department Discharge Additional Instructions: Follow with PCP [place] for pain Zofran for nausea Return if symptoms worse Call your Physician or Return to Emergency Department if: * Your condition worsens in any way. * You develop fever greater than 100.4. * You have vomitting that does not stop with medications. * You have pain that is not controlled with medications. Sepsis Event Note (ED) - Focused Exam Vital Signs: Vital Signs Temp Pulse Resp BP Pulse Ox 05/03/20 08:52 95 20 147/75 H 97 05/03/20 08:48 36.7 C 102 H 22 H 161/93 H 97
[2020-05-03] MEDS: Morphine 2 MG/ML SYRINGE IVPUSH ONE ×2 (09:13→12:06)
[2020-05-03] MEDS: Iopamidol 755 Mg/ML 100 ML Bottle IV ONE (09:42)
[2020-05-03] MEDS: Potassium Chloride 20 MEQ Tab.ER PO ONE (11:03)
--- NOTE | 2020-05-03 11:25 | CT ---
INDICATION: Mid-abdominal pain, nausea, vomiting, diarrhea [address] ABDOMEN AND PELVIS WITH CONTRAST: Spiral 3.75 mm axial sections were obtained through the abdomen and pelvis with 75 mL Isovue 370 at 1.2 mL/second with 130 second delay utilizing sagittal and coronal reconstructions, 05/03/20, and compared with 12/20/19. Total exam DLP was 279.24 mGy-cm. There are suggested minimal emphysematous changes at the lung base on the left with slightly heavier markings than previously, which could be on the basis of a minimal patchy pneumonia or possibly progressive fibrosis. A part of the markings are probably hydrostatic in origin. The heart appeared normal in size. No pericardial effusion was seen. Calcification is again noted in the left lobe of the liver, possibly on the basis of previous histoplasmosis infection. The liver was otherwise unremarkable. No gallstones were demonstrated. The adrenal glands and spleen appear to be fairly normal. Although the pancreas in the distal body and tail area is fairly unremarkable, the head area is somewhat indistinctly marginated and there is a relative prominence of the pancreatic duct compared with the previous study, raising question of pancreatitis in the area of the head of the pancreas. This should be correlated clinically. Tiny low density lesions in the kidneys may represent tiny cysts. There is suggestion of a small, fixed hiatal hernia with a slight increase in size compared with the previous study. No retroperitoneal mass was demonstrated. Calcifications are noted in the abdominal aorta at the origins of the celiac axis and superior mesenteric arteries and in the left renal artery minimally. Calcifications also noted in the iliac and minimally in the femoral arteries. The urinary bladder is distended to a greater extent than on the previous study, which may be on the basis of a degree of urinary retention. It measured 12.7 x 5.4 x 13.2 cm in craniocaudad, AP and transverse diameters. No definite wall thickening is seen. Uterine artery calcifications are noted. What appears to be the appendix was not well seen but did not appear abnormal. Overall, compared with the previous study, the bowel is somewhat distended with air and stool in the colon. The wall of the sigmoid and especially the rectosigmoid and rectum areas of colon are somewhat thickened and slightly indistinct suggesting an inflammatory process, possibly ulcerative colitis or, less likely, Crohn's disease. An infectious colitis would certainly be possible. No gross peritonitis was seen, however. No definite abscess formation was identified. The somewhat distended bowel may be on the basis of relative paralytic ileus. There is a fairly large amount of stool in the colon, especially in the rectosigmoid and rectum. This area of bowel is dilated somewhat raising question of fecal impaction at the level of the rectum. This should be correlated clinically. No other organomegaly, mass lesions or free fluid collections were identified in the abdomen or pelvis. IMPRESSION: 1. Somewhat distended bowel overall with fairly large amount of stool and air in the colon. The possibility of a fecal impaction in the area of the rectum cannot be excluded. There does appear to be some thickening of the wall of the rectum, rectosigmoid and sigmoid colon, which could be on the basis of colitis. Infectious or ulcerative colitis felt to be more likely. Although a fecal impaction is suggested, this should be correlated clinically as the appearance may simply be on the basis of relative stasis. 2. ASD. 3. Minimal low density lesions in the kidneys likely representing simple cysts. 4. Fixed hiatal hernia has increased in size and is now [id number] in size. 5. Probable urinary retention with increased size of urinary bladder. Ultrasound of the urinary bladder Pre and Post-Voiding, may be helpful. 6. Slightly heavier pulmonary markings at the left lower lobe may represent a progressive fibrosis, although minimal area of pneumonia cannot be entirely excluded. 7. There is suggestion of minimal emphysematous change at the left lower lobe. 8. Although the pancreas in the distal body and tail area is fairly unremarkable, the head area is somewhat indistinctly marginated and there is a relative prominence of the pancreatic duct compared with the previous study, raising question of pancreatitis in the area of the head of the pancreas. This should be correlated clinically. MRI may be helpful. Report was called to Dr. Larry at 10:29 hours. [facility] CAN[facility]ER CENTERKelsi
[2020-05-03 12:41] VITALS: BP 145/85; PULSE 101
== END 2020-05-03 12:40 | disposition home or self-care (01) ==
LOC: FB.ED 08:26
DX: K52.9 Noninfective gastroenteritis and colitis, unspecified (principal); I10 Essential (primary) hypertension; K21.9 Gastro-esophageal reflux disease without esophagitis; M19.90 Unspecified osteoarthritis, unspecified site; F41.9 Anxiety disorder, unspecified; F32.9 Major depressive disorder, single episode, unspecified; Z79.899 Other long term (current) drug therapy; Z88.2 Allergy status to sulfonamides; Z79.82 Long term (current) use of aspirin
CPT/HCPCS: 36415; 74177; 80053; 81001; 83690; 83735; 85025; 86140; 96361; 96374; 96375; 96376; 99284; 99285-25; A9270-GY; J2270; J2405; J7030; Q9967

== ENCOUNTER 2020-05-12 04:48 | Inpatient (IN) | payer MEDICARE ==
[2020-05-12] MEDS ORDERED: Sodium Chloride 0.9% 1,000 ML IV ONE (05:07)
[2020-05-12] MEDS ORDERED: Ondansetron 4 MG/2 ML SDV IVPUSH ONE (05:08)
[2020-05-12] MEDS ORDERED: Ondansetron 4 MG Tab.DIS ONE (06:45)
[2020-05-12] MEDS ORDERED: Ondansetron 4 MG Tab.DIS PO ONE (06:46)
--- NOTE | 2020-05-12 07:14 | EDM.PDOC ---
ED HPI GENERAL MEDICAL PROBLEM - General Chief Complaint: General Stated Complaint: INTOXICATED Time Seen by Provider: 05/12/20 05:00 Source of Information: Reports: Patient History Limitations: Reports: No Limitations - History of Present Illness INITIAL COMMENTS - FREE TEXT/NARRATIVE: pt comes from home intoxicated with c/o recurrent emesis , no pain complaints or any other associated sx except for mild abd discomfort , pt has long known Hx of alcoholism and she is a recurrent pt here. - Related Data Allergies Allergy/AdvReac Type Severity Reaction Status Date / Time Sulfa (Sulfonamide Allergy Rash Verified 05/03/20 08:39 Antibiotics) Home Meds: Home Meds Multivitamin [Multi-Vitamin Daily] 1 tab PO DAILY 10/09/13 [History] Aspirin 81 mg PO DAILY 07/26/18 [History] Spironolactone [Aldactone] 25 mg PO DAILY 03/17/19 [History] Folic Acid 1 mg PO DAILY 05/03/19 [History] Calcium Carb, Citrate/Vit D3 [Citracal + D ER] 1 tab PO DAILY 12/20/19 [History] Potassium Chloride 20 meq PO DAILY 12/20/19 [History] Sertraline [Zoloft] 100 mg PO DAILY 12/20/19 [History] Metoprolol Succinate [Toprol XL] 25 mg PO DAILY #30 tab.er 01/01/20 [Rx] Mirtazapine [Remeron] 30 mg PO BEDTIME #30 tablet 01/01/20 [Rx] Pantoprazole [ProTONIX] 40 mg PO BIDAC #30 tab.cr 01/01/20 [Rx] Thiamine [Vitamin B-1] 100 mg PO DAILY #30 tablet 01/01/20 [Rx] Hydrocodone/Acetaminophen [[place] 5-325 Tablet] 1 each PO .Q6H PRN #20 tablet 05/03/20 [Rx] ondansetron HCL [Zofran] 4 mg PO .Q6H PRN #20 tablet 05/03/20 [Rx] Past Medical History HEENT History: Reports: Cataract, Impaired Vision Cardiovascular History: Reports: Hypertension, Other (See Below) Other Cardiovascular History: States has irregular HR at times. Respiratory History: Reports: Bronchitis, Recurrent, Pneumonia, Recurrent, Other (See Below) Other Respiratory History: Tobacco use. Gastrointestinal History: Reports: GERD, Pancreatitis, PUD Other Gastrointestinal History: "Prolapsed colon". Genitourinary History: Reports: Urinary Incontinence ORCHESTRA DIRECTOR History: Reports: Other ORCHESTRA DIRECTOR History: G0 Musculoskeletal History: Reports: Arthritis, Osteoporosis, Other (See Below) Other Musculoskeletal History: Movement disorder. Ataxia. Neurological History: Reports: Other (See Below) Other Neuro History: Episodes of DT's. Movement disorder. Psychiatric History: Reports: Addiction, Anxiety, Depression, Hallucinations, Other (See Below) Other Psychiatric History: Drug and alcohol addiction. Endocrine/Metabolic History: Reports: Osteoporosis Hematologic History: Reports: Anemia, Blood Transfusion(s), Other (See Below) Other Hematologic History: Leukopenia, thrombocytopenia. Immunologic History: Reports: None Oncologic (Cancer) History: Reports: None Dermatologic History: Reports: None - Infectious Disease History Infectious Disease History: Reports: Chicken Pox, Measles, Mumps - Past Surgical History GI Surgical History: Reports: Colonoscopy, EGD, Other (See Below) Other GI Surgeries/Procedures: History of feeding tube. Neurological Surgical History: Reports: None Musculoskeletal Surgical History: Reports: Other (See Below) Other Musculoskeletal Surgeries/Procedures:: Toe surgery. Social & Family History - Family History Family Medical History: Noncontributory - Caffeine Use Caffeine Use: Reports: Coffee Other Caffeine Use: 2-3 CUPS DAILY - Living Situation & Occupation Living situation: Reports: Alone Occupation: Disabled ED ROS GENERAL - Review of Systems Review Of Systems: See Below Constitutional: Reports: Fatigue. Denies: Fever, Chills HEENT: Reports: No Symptoms Respiratory: Reports: No Symptoms Cardiovascular: Reports: No Symptoms GI/Abdominal: Reports: Nausea, Vomiting. Denies: Abdominal Pain, Constipation, Diarrhea : Reports: No Symptoms Musculoskeletal: Reports: No Symptoms Skin: Reports: No Symptoms Neurological: Reports: No Symptoms ED EXAM, GENERAL - Physical Exam Exam: See Below Exam Limited By: No Limitations General Appearance: Alert, Mild Distress, Moderate Distress Eye Exam: Bilateral Eye: Normal Inspection Throat/Mouth: Normal Inspection, Normal Oropharynx Head: Atraumatic, Normocephalic Neck: Normal Inspection, Supple, Non-Tender Respiratory/Chest: No Respiratory Distress, Lungs Clear, Normal Breath Sounds Cardiovascular: Regular Rate, Rhythm, No Murmur GI/Abdominal: Normal Bowel Sounds, Soft Extremities: Normal Inspection Neurological: Alert, Oriented, CN II-XII Intact Skin Exam: Warm Course - Vital Signs Text/Narrative:: pt was a very hard access and after multiple attempt we were able to place a 24 katelyn venous access allowing for hydration at 100 cc at best , however pt was tolerating PO fluids very well after zofran and Reglan , so far about 2.5 liters of fluids are in . pt has no Hx of DM, her CO2 is 15, acetone is a sent out . WBC is nl, BS 500 . BS dropped from 500 to 78 after 15 units insulin pt is coming with early DKA and a new diagnosis of diabetes. also coming with acute alcohol intoxication. will admit acute, continue with hydration and insulin SQ if needed as this seems to be early DKA . discussed with Dr stoll and pt will be admitted to his care. - Orders/Labs/Meds Orders: Active Orders 24 hr Category Date Time Status Blood Glucose Check, Bedside [RC] ONETIME Care 05/12/20 04:53 Active Abdomen 2V AP Flat Upright [CR] Stat Exams 05/12/20 08:59 Taken Insulin Regular, Human [HumuLIN R] Med 05/12/20 07:30 Active 15 unit SUBCUT BIDAC Medication Orders Insulin Human Regular (Humulin R) 15 unit SUBCUT BIDAC ROMEL Last Admin: 05/12/20 07:20 Dose: 15 units Documented by: DEBRA Cosigned by: HUMBERTO Labs: Laboratory Tests 05/12/20 05/12/20 05/12/20 Range/Units 04:53 05:25 05:25 WBC 7.5 (4.5-12.0) X10-3/uL RBC 3.87 (3.23-5.20) x10(6)uL Hgb 9.9 L (11.5-15.5) g/dL Hct 32.0 (30.0-51.3) % MCV 82.6 (80-96) fL MCH 25.7 L (27.7-33.6) pg MCHC 31.1 L (32.2-35.4) g/dL RDW 18.4 H (11.5-15.5) % Plt Count 729 H (125-369) X10(3)uL MPV 6.5 L (7.4-10.4) fL Add Manual Diff Yes Neutrophils % (Manual) 75 (46-82) % Band Neutrophils % 3 (0-6) % Lymphocytes % (Manual) 11 L (13-37) % Monocytes % (Manual) 9 (4-12) % Eosinophils % (Manual) 1 (0-5) % Basophils % (Manual) 1 (0-2) % Anisocytosis Few Sodium 135 (135-145) mmol/L Potassium 4.7 D (3.5-5.3) mmol/L Chloride 95 L D (100-110) mmol/L Carbon Dioxide 15 L (21-32) mmol/L BUN 22 H (7-18) mg/dL Creatinine 1.2 H (0.55-1.02) mg/dL Est Cr Clr Drug Dosing TNP Estimated GFR (MDRD) 45 L (>60) BUN/Creatinine Ratio 18.3 (9-20) Glucose 494 H* D (80-116) mg/dL POC Glucose > 500 H* (74-100) mg/dL Calcium 8.2 L (8.6-10.2) mg/dL Total Bilirubin 0.3 (0.1-1.3) mg/dL AST 58 H D (5-25) IU/L ALT 32 D (12-36) U/L Alkaline Phosphatase 128 H (56-112) IU/L Total Protein 7.9 (6.0-8.0) g/dL Albumin 3.7 (3.2-4.6) g/dL Globulin 4.2 g/dL Albumin/Globulin Ratio 0.9 Amylase (25-115) U/L Lipase (73-393) U/L Ethyl Alcohol (<0.03) % 05/12/20 05/12/20 05/12/20 Range/Units 05:25 05:35 05:35 WBC (4.5-12.0) X10-3/uL RBC (3.23-5.20) x10(6)uL Hgb (11.5-15.5) g/dL Hct (30.0-51.3) % MCV (80-96) fL MCH (27.7-33.6) pg MCHC (32.2-35.4) g/dL RDW (11.5-15.5) % Plt Count (125-369) X10(3)uL MPV (7.4-10.4) fL Add Manual Diff Neutrophils % (Manual) (46-82) % Band Neutrophils % (0-6) % Lymphocytes % (Manual) (13-37) % Monocytes % (Manual) (4-12) % Eosinophils % (Manual) (0-5) % Basophils % (Manual) (0-2) % Anisocytosis Sodium (135-145) mmol/L Potassium (3.5-5.3) mmol/L Chloride (100-110) mmol/L Carbon Dioxide (21-32) mmol/L BUN (7-18) mg/dL Creatinine (0.55-1.02) mg/dL Est Cr Clr Drug Dosing Estimated GFR (MDRD) (>60) BUN/Creatinine Ratio (9-20) Glucose (80-116) mg/dL POC Glucose (74-100) mg/dL Calcium (8.6-10.2) mg/dL Total Bilirubin (0.1-1.3) mg/dL AST (5-25) IU/L ALT (12-36) U/L Alkaline Phosphatase (56-112) IU/L Total Protein (6.0-8.0) g/dL Albumin (3.2-4.6) g/dL Globulin g/dL Albumin/Globulin Ratio Amylase 106 (25-115) U/L Lipase 156 (73-393) U/L Ethyl Alcohol 0.15 H* (<0.03) % 05/12/20 05/12/20 Range/Units 08:34 12:40 WBC (4.5-12.0) X10-3/uL RBC (3.23-5.20) x10(6)uL Hgb (11.5-15.5) g/dL Hct (30.0-51.3) % MCV (80-96) fL MCH (27.7-33.6) pg MCHC (32.2-35.4) g/dL RDW (11.5-15.5) % Plt Count (125-369) X10(3)uL MPV (7.4-10.4) fL Add Manual Diff Neutrophils % (Manual) (46-82) % Band Neutrophils % (0-6) % Lymphocytes % (Manual) (13-37) % Monocytes % (Manual) (4-12) % Eosinophils % (Manual) (0-5) % Basophils % (Manual) (0-2) % Anisocytosis Sodium (135-145) mmol/L Potassium (3.5-5.3) mmol/L Chloride (100-110) mmol/L Carbon Dioxide (21-32) mmol/L BUN (7-18) mg/dL Creatinine (0.55-1.02) mg/dL Est Cr Clr Drug Dosing Estimated GFR (MDRD) (>60) BUN/Creatinine Ratio (9-20) Glucose (80-116) mg/dL POC Glucose 370 H 78 (74-100) mg/dL Calcium (8.6-10.2) mg/dL Total Bilirubin (0.1-1.3) mg/dL AST (5-25) IU/L ALT (12-36) U/L Alkaline Phosphatase (56-112) IU/L Total Protein (6.0-8.0) g/dL Albumin (3.2-4.6) g/dL Globulin g/dL Albumin/Globulin Ratio Amylase (25-115) U/L Lipase (73-393) U/L Ethyl Alcohol (<0.03) % Meds: Medications Generic Name Dose Route Start Last Admin Trade Name Freq PRN Reason Stop Dose Admin Insulin Human Regular 15 unit 05/12/20 07:30 05/12/20 07:20 Humulin R SUBCUT 15 units BIDAC ROMEL Administration Discontinued Medications Generic Name Dose Route Start Last Admin Trade Name Freq PRN Reason Stop Dose Admin Sodium Chloride 1,000 mls @ 999 mls/hr 05/12/20 05:07 05/12/20 07:30 Normal Saline IV 05/12/20 06:07 100 mls/hr .BOLUS ONE Infusion Metoclopramide HCl 10 mg 05/12/20 08:58 05/12/20 09:03 Reglan IVPUSH 05/12/20 08:59 10 mg ONETIME ONE Administration Ondansetron HCl 4 mg 05/12/20 05:08 05/12/20 08:10 Zofran IVPUSH 05/12/20 05:09 4 mg ONETIME ONE Administration Ondansetron HCl 4 mg 05/12/20 06:46 05/12/20 06:47 Zofran Odt PO 05/12/20 06:47 4 mg ONETIME ONE Administration Ondansetron HCl Confirm 05/12/20 06:45 05/12/20 07:19 Zofran Odt Administered 05/12/20 06:46 Not Given Dose 4 mg .ROUTE .STK-MED ONE Ondansetron HCl Confirm 05/12/20 08:06 05/12/20 08:11 Zofran Administered 05/12/20 08:07 Not Given Dose 4 mg .ROUTE .STK-MED ONE Departure - Departure Time of Disposition: 13:51 Disposition: Admitted As Inpatient 65 Clinical Impression: DKA (diabetic ketoacidoses) - Discharge Information Referrals: Aden Lemus MD [Primary Care Provider] - Forms: ED Department Discharge Sepsis Event Note (ED) - Evaluation Sepsis Screening Result: No Definite Risk - My Orders Last 24 Hours: My Active Orders 05/12/20 04:53 Blood Glucose Check, Bedside [RC] ONETIME 05/12/20 07:30 Insulin Regular, Human [HumuLIN R] 15 unit SUBCUT BIDAC 05/12/20 08:59 Abdomen 2V AP Flat Upright [CR] Stat - Assessment/Plan Last 24 Hours: My Active Orders 05/12/20 04:53 Blood Glucose Check, Bedside [RC] ONETIME 05/12/20 07:30 Insulin Regular, Human [HumuLIN R] 15 unit SUBCUT BIDAC 05/12/20 08:59 Abdomen 2V AP Flat Upright [CR] Stat
[2020-05-12] MEDS ORDERED: Insulin Regular, Human 100 Units/ML 3 ML Vial SUBCUT SCH (07:30)
--- NOTE | 2020-05-12 07:34 | PCM.SN.2 ---
- Free Text/Narrative Note: [facility] Date: 05/12/2020 Time: 605 to 706 DX: Severe abdominal pain with Hyperglycemia and Poor Venous Access RX: Obtain Peripheral Venous Access Procedure: Placement of venous access catheter. I was called by the SCREW MACHINE TENDER after multiple attempts [both arms and right foot] to obtain peripheral venous access without success. The patient is moderately dehydrated, nauseated and complaining of abdominal pain. I tried 4 times either with no success cannulating a vein or the vein rupturing after cannulation and flushing fluids. I did find a superficial vein on her right lateral distal upper arm above the elbow. I prepped the area with 3 alcohol wipes and applied a skin deadening "freeze spray". I then inserted and advanced a BD Insyte [employer] BC Winged 24 GA. X 0.75 IN. Catheter times one attempt. I did flush this catheter with 10 ml's of normal saline without a problem and applied an Op-Site type dressing. She tolerated this procedure okay. I did talk with the ER physician and suggested that he either place an Interosseous Catheter or a central line which the patient states "which she has had before" for further access. Mirza uLz CRNA, [facility]
[2020-05-12] MEDS ORDERED: Ondansetron 4 MG/2 ML SDV ONE (08:06)
[2020-05-12] MEDS ORDERED: Metoclopramide 10 MG/2 ML SDV IVPUSH ONE (08:58)
[2020-05-12] MEDS: Sodium Chloride 0.9% 1,000 ML IV SCH ×2 (13:55→22:43)
[2020-05-12] MEDS ORDERED: Ondansetron 4 MG Tab.DIS PO PRN (15:07)
[2020-05-12] MEDS ORDERED: Acetaminophen/HYDROcodone 325-5 MG Tab PO PRN (15:07)
[2020-05-12] MEDS ORDERED: LORazepam 2 MG/ML SDV IVPUSH PRN (15:11)
--- NOTE | 2020-05-12 15:25 | PCM.HP.2 ---
H&P History of Present Illness - General Date of Service: 05/12/20 Admit Problem/Dx: Admission Diagnosis/Problem Admission Diagnosis/Problem Acidosis Source of Information: Patient History Limitations: Reports: No Limitations - History of Present Illness Initial Comments - Free Text/Narative: This is a 64-year-old female patient with a long history of alcoholism. She came to the ER because of some abdominal pain and nausea. Her blood alcohol was 0.15. She states she's been drinking 1.75 L of vodka a day. She's been to treatment multiple times she thinks 4-5 and doesn't usually help her. She lives alone in apartment [facility]. She was found to have a blood sugar around 500. She has no history of diabetes. She says she has a dry mouth but denies polyphagia or polyuria. Stools are little bit loose she states but no blood. She denies fevers, chills, chest pain, shortness of breath. She says she started to withdraw she has not had any alcohol since last night. - Related Data Allergies/Adverse Reactions: Allergies Allergy/AdvReac Type Severity Reaction Status Date / Time Sulfa (Sulfonamide Allergy Rash Verified 05/12/20 14:18 Antibiotics) Home Medications: Home Meds Multivitamin [Multi-Vitamin Daily] 1 tab PO DAILY 10/09/13 [History] Aspirin 81 mg PO DAILY 07/26/18 [History] Spironolactone [Aldactone] 25 mg PO DAILY 03/17/19 [History] Folic Acid 1 mg PO DAILY 05/03/19 [History] Calcium Carb, Citrate/Vit D3 [Citracal + D ER] 1 tab PO DAILY 12/20/19 [History] Potassium Chloride 20 meq PO DAILY 12/20/19 [History] Sertraline [Zoloft] 100 mg PO DAILY 12/20/19 [History] Metoprolol Succinate [Toprol XL] 25 mg PO DAILY #30 tab.er 01/01/20 [Rx] Mirtazapine [Remeron] 30 mg PO BEDTIME #30 tablet 01/01/20 [Rx] Pantoprazole [ProTONIX] 40 mg PO BIDAC #30 tab.cr 01/01/20 [Rx] Thiamine [Vitamin B-1] 100 mg PO DAILY #30 tablet 05/18/20 [Rx] Hydrocodone/Acetaminophen [Mcintosh 5-325 Tablet] 1 each PO .Q6H PRN #20 tablet 05/03/20 [Rx] ondansetron HCL [Zofran] 4 mg PO .Q6H PRN #20 tablet 05/03/20 [Rx] Past Medical History HEENT History: Reports: Cataract, Impaired Vision Cardiovascular History: Reports: Hypertension, Other (See Below) Other Cardiovascular History: States has irregular HR at times. Respiratory History: Reports: Bronchitis, Recurrent, Pneumonia, Recurrent, Other (See Below) Other Respiratory History: Tobacco use. Gastrointestinal History: Reports: GERD, Pancreatitis, PUD Other Gastrointestinal History: "Prolapsed colon". Genitourinary History: Reports: Urinary Incontinence COMPOUNDER History: Reports: Other OB/BYN History: G0 Musculoskeletal History: Reports: Arthritis, Osteoporosis, Other (See Below) Other Musculoskeletal History: Movement disorder. Ataxia. Neurological History: Reports: Other (See Below) Other Neuro History: Episodes of DT's. Movement disorder. Psychiatric History: Reports: Addiction, Anxiety, Depression, Hallucinations, Other (See Below) Other Psychiatric History: Drug and alcohol addiction. Endocrine/Metabolic History: Reports: Osteoporosis Hematologic History: Reports: Anemia, Blood Transfusion(s), Other (See Below) Other Hematologic History: Leukopenia, thrombocytopenia. Immunologic History: Reports: None Oncologic (Cancer) History: Reports: None Dermatologic History: Reports: None - Infectious Disease History Infectious Disease History: Reports: Chicken Pox, Measles, Mumps - Past Surgical History GI Surgical History: Reports: Colonoscopy, EGD, Other (See Below) Other GI Surgeries/Procedures: History of feeding tube. Neurological Surgical History: Reports: None Musculoskeletal Surgical History: Reports: Other (See Below) Other Musculoskeletal Surgeries/Procedures:: Toe surgery. Social & Family History - Family History Family Medical History: Noncontributory - Caffeine Use Caffeine Use: Reports: Coffee Other Caffeine Use: 2-3 CUPS DAILY - Living Situation & Occupation Living situation: Reports: Alone Occupation: Disabled H&P Review of Systems - Review of Systems: Review Of Systems: See Below General: Reports: Weakness. Denies: Fever, Chills Pulmonary: Reports: No Symptoms Cardiovascular: Reports: No Symptoms Gastrointestinal: Reports: Abdominal Pain, Diarrhea, Nausea, Vomiting. Denies: Black Stool, Bloody Stool, Constipation, Distension, Hematochezia, Melena Genitourinary: Reports: No Symptoms Musculoskeletal: Reports: No Symptoms Skin: Reports: Change in Color (Buttocks) Psychiatric: Reports: Depression Neurological: Reports: Tremors Hematologic/Lymphatic: Reports: No Symptoms Immunologic: Reports: No Symptoms Exam - Exam Exam: See Below - Vital Signs Vital Signs: Last Vital Signs Temp 98.1 F 05/12/20 14:10 Pulse 102 H 05/12/20 14:10 Resp 16 05/12/20 14:10 BP 165/81 H 05/12/20 14:10 Pulse Ox 99 05/12/20 14:10 - Exam General: Alert, Oriented, Cooperative HEENT: Hearing Intact, Mucosa Moist & [place], Posterior Pharynx Clear, TMs Clear Neck: Supple, Trachea Midline Lungs: Clear to Auscultation, Normal Respiratory Effort Cardiovascular: Regular Rate, Regular Rhythm. No: Tachycardia, Systolic Murmur GI/Abdominal Exam: Normal Bowel Sounds, Soft, Non-Tender, No Organomegaly, No Distention, No Mass Back Exam: Normal Inspection, Full Range of Motion Extremities: Normal Inspection, Normal Range of Motion, Non-Tender, No Pedal Edema Skin: Other (Some erythema bruising her buttocks with scratch sebastian bilateral) Neurological: Normal Speech, Normal Tone, Other (Tremors) Psychiatric: Alert, Other (Blunt affect) - Patient Data Lab Results Last 24 hrs: Laboratory Results - last 24 hr 05/12/20 05/12/20 05/12/20 Range/Units 04:53 05:25 05:25 WBC 7.5 (4.5-12.0) X10-3/uL RBC 3.87 (3.23-5.20) x10(6)uL Hgb 9.9 L (11.5-15.5) g/dL Hct 32.0 (30.0-51.3) % MCV 82.6 (80-96) fL MCH 25.7 L (27.7-33.6) pg MCHC 31.1 L (32.2-35.4) g/dL RDW 18.4 H (11.5-15.5) % Plt Count 729 H (125-369) X10(3)uL MPV 6.5 L (7.4-10.4) fL Add Manual Diff Yes Neutrophils % (Manual) 75 (46-82) % Band Neutrophils % 3 (0-6) % Lymphocytes % (Manual) 11 L (13-37) % Monocytes % (Manual) 9 (4-12) % Eosinophils % (Manual) 1 (0-5) % Basophils % (Manual) 1 (0-2) % Anisocytosis Few Sodium 135 (135-145) mmol/L Potassium 4.7 D (3.5-5.3) mmol/L Chloride 95 L D (100-110) mmol/L Carbon Dioxide 15 L (21-32) mmol/L BUN 22 H (7-18) mg/dL Creatinine 1.2 H (0.55-1.02) mg/dL Est Cr Clr Drug Dosing TNP Estimated GFR (MDRD) 45 L (>60) BUN/Creatinine Ratio 18.3 (9-20) Glucose 494 H* D (80-116) mg/dL POC Glucose > 500 H* (74-100) mg/dL Calcium 8.2 L (8.6-10.2) mg/dL Total Bilirubin 0.3 (0.1-1.3) mg/dL AST 58 H D (5-25) IU/L ALT 32 D (12-36) U/L Alkaline Phosphatase 128 H (56-112) IU/L Total Protein 7.9 (6.0-8.0) g/dL Albumin 3.7 (3.2-4.6) g/dL Globulin 4.2 g/dL Albumin/Globulin Ratio 0.9 Amylase (25-115) U/L Lipase (73-393) U/L Ethyl Alcohol (<0.03) % 05/12/20 05/12/20 05/12/20 Range/Units 05:25 05:35 05:35 WBC (4.5-12.0) X10-3/uL RBC (3.23-5.20) x10(6)uL Hgb (11.5-15.5) g/dL Hct (30.0-51.3) % MCV (80-96) fL MCH (27.7-33.6) pg MCHC (32.2-35.4) g/dL RDW (11.5-15.5) % Plt Count (125-369) X10(3)uL MPV (7.4-10.4) fL Add Manual Diff Neutrophils % (Manual) (46-82) % Band Neutrophils % (0-6) % Lymphocytes % (Manual) (13-37) % Monocytes % (Manual) (4-12) % Eosinophils % (Manual) (0-5) % Basophils % (Manual) (0-2) % Anisocytosis Sodium (135-145) mmol/L Potassium (3.5-5.3) mmol/L Chloride (100-110) mmol/L Carbon Dioxide (21-32) mmol/L BUN (7-18) mg/dL Creatinine (0.55-1.02) mg/dL Est Cr Clr Drug Dosing Estimated GFR (MDRD) (>60) BUN/Creatinine Ratio (9-20) Glucose (80-116) mg/dL POC Glucose (74-100) mg/dL Calcium (8.6-10.2) mg/dL Total Bilirubin (0.1-1.3) mg/dL AST (5-25) IU/L ALT (12-36) U/L Alkaline Phosphatase (56-112) IU/L Total Protein (6.0-8.0) g/dL Albumin (3.2-4.6) g/dL Globulin g/dL Albumin/Globulin Ratio Amylase 106 (25-115) U/L Lipase 156 (73-393) U/L Ethyl Alcohol 0.15 H* (<0.03) % 05/12/20 05/12/20 Range/Units 08:34 12:40 WBC (4.5-12.0) X10-3/uL RBC (3.23-5.20) x10(6)uL Hgb (11.5-15.5) g/dL Hct (30.0-51.3) % MCV (80-96) fL MCH (27.7-33.6) pg MCHC (32.2-35.4) g/dL RDW (11.5-15.5) % Plt Count (125-369) X10(3)uL MPV (7.4-10.4) fL Add Manual Diff Neutrophils % (Manual) (46-82) % Band Neutrophils % (0-6) % Lymphocytes % (Manual) (13-37) % Monocytes % (Manual) (4-12) % Eosinophils % (Manual) (0-5) % Basophils % (Manual) (0-2) % Anisocytosis Sodium (135-145) mmol/L Potassium (3.5-5.3) mmol/L Chloride (100-110) mmol/L Carbon Dioxide (21-32) mmol/L BUN (7-18) mg/dL Creatinine (0.55-1.02) mg/dL Est Cr Clr Drug Dosing Estimated GFR (MDRD) (>60) BUN/Creatinine Ratio (9-20) Glucose (80-116) mg/dL POC Glucose 370 H 78 (74-100) mg/dL Calcium (8.6-10.2) mg/dL Total Bilirubin (0.1-1.3) mg/dL AST (5-25) IU/L ALT (12-36) U/L Alkaline Phosphatase (56-112) IU/L Total Protein (6.0-8.0) g/dL Albumin (3.2-4.6) g/dL Globulin g/dL Albumin/Globulin Ratio Amylase (25-115) U/L Lipase (73-393) U/L Ethyl Alcohol (<0.03) % Result Diagrams: 05/12/20 05:25 05/12/20 05:25 Sepsis Event Note - Evaluation Sepsis Screening Result: No Definite Risk - Focused Exam Vital Signs: Vital Signs Temp Pulse Resp BP Pulse Ox 05/12/20 14:10 98.1 F 102 H 16 165/81 H 99 05/12/20 11:30 98.7 F 110 H 18 157/71 H 95 05/12/20 08:00 98.2 F 115 H 17 165/78 H 99 - Problem List (1) Alcohol withdrawal SNOMED Code(s): 188589560 ICD Code: F10.239 - ALCOHOL DEPENDENCE WITH WITHDRAWAL, UNSPECIFIED Status: Acute Current Visit: Yes (2) Palliative care status SNOMED Code(s): 670506506 ICD Code: Z51.5 - ENCOUNTER FOR PALLIATIVE CARE Status: Acute Current Visit: Yes (3) DKA (diabetic ketoacidoses) SNOMED Code(s): 279235252, 772885353 ICD Code: E11.10 - TYPE 2 DIABETES MELLITUS WITH KETOACIDOSIS WITHOUT COMA Status: Acute Current Visit: Yes (4) Abdominal pain SNOMED Code(s): 51158314 ICD Code: R10.9 - UNSPECIFIED ABDOMINAL PAIN Status: Acute Current Visit: No (5) Alcohol abuse with intoxication SNOMED Code(s): 87035594 ICD Code: F10.129 - ALCOHOL ABUSE WITH INTOXICATION, UNSPECIFIED Status: Acute Current Visit: No (6) Anemia SNOMED Code(s): 439796701 ICD Code: D64.9 - ANEMIA, UNSPECIFIED Status: Acute Current Visit: No (7) Dehydration SNOMED Code(s): 12861604 ICD Code: E86.0 - DEHYDRATION Status: Acute Current Visit: No (8) MDD (major depressive disorder) SNOMED Code(s): 098820448 ICD Code: F32.9 - MAJOR DEPRESSIVE DISORDER, SINGLE EPISODE, UNSPECIFIED Status: Acute Current Visit: No Qualifiers: Major depression recurrence: recurrent Active/Remission status: currently active (9) Anemia SNOMED Code(s): 197932357 ICD Code: D64.9 - ANEMIA, UNSPECIFIED Status: Acute Current Visit: Yes (10) Thrombocytosis SNOMED Code(s): 8198812 ICD Code: D47.3 - ESSENTIAL (HEMORRHAGIC) THROMBOCYTHEMIA Status: Acute Current Visit: Yes Problem List Initiated/Reviewed/Updated: Yes Orders Last 24hrs: Active Orders 24 hr Category Date Time Status Patient Status [ADT] Routine ADT 05/12/20 13:52 Active Accu Check [Blood Glucose Check, Bedside] [RC] Q4HR Care 05/12/20 15:14 Ordered Blood Glucose Check, Bedside [RC] ONETIME Care 05/12/20 04:53 Active Pulse Oximetry [RC] PRN Care 05/12/20 13:52 Active Up With Assistance [RC] ASDIRECTED Care 05/12/20 15:09 Active Vital Signs [RC] Q4H Care 05/12/20 13:52 Active Consult to Case Management/Life Skills Educator [CONS] Cons 05/12/20 15:15 Ordered Routine Consistent Carbohydrate Diet [DIET] Diet 05/12/20 Dinner Active Abdomen 2V AP Flat Upright [CR] Stat Exams 05/12/20 08:59 Taken CBC WITH AUTO DIFF [HEME] AM Lab 05/13/20 05:11 Ordered COMPREHENSIVE METABOLIC PN,CMP [CHEM] AM Lab 05/13/20 05:11 Ordered GLYCOSYLATED HEMOGLOBIN,HGBA1C [CHEM] AM Lab 05/13/20 05:11 Ordered INR,PT,PROTHROMBIN TIME [COAG] Routine Lab 05/12/20 15:30 Ordered LIPID PANEL [CHEM] AM Lab 05/13/20 05:11 Ordered MICROALB/CREAT RATIO, RANDM UR Routine Lab 05/13/20 06:00 Ordered POTASSIUM,K [CHEM] Q4H Lab 05/12/20 15:15 Ordered POTASSIUM,K [CHEM] Q4H Lab 05/12/20 19:15 Ordered POTASSIUM,K [CHEM] Q4H Lab 05/12/20 23:15 Ordered POTASSIUM,K [CHEM] Q4H Lab 05/13/20 03:15 Ordered PTT,PARTIAL THROMBOPLSTIN TIME [COAG] Routine Lab 05/12/20 15:18 Ordered Acetaminophen/HYDROcodone [Mcintosh 325-5 MG] Med 05/12/20 15:07 Active 1 tab PO Q6H PRN Aspirin Med 05/13/20 09:00 Active 81 mg PO DAILY Calcium Carb, Citrate/Vit D3 [Citracal + D ER] Med 05/13/20 09:00 Ordered 1 tab PO DAILY Enoxaparin [Lovenox] Med 05/12/20 15:30 Ordered 40 mg SUBCUT Q24H Folic Acid Med 05/13/20 09:00 Active 1 mg PO DAILY Insulin Lispro [HumaLOG] Med 05/12/20 15:15 Ordered See Protocol SUBCUT Q4H LORazepam [Ativan] Med 05/12/20 15:11 Ordered 1 mg IVPUSH Q6H PRN Metoprolol Succinate [Toprol XL] Med 05/13/20 09:00 Active 25 mg PO DAILY Mirtazapine [Remeron] Med 05/12/20 21:00 Active 30 mg PO BEDTIME Multivitamins [Tab-A-Jocelin] Med 05/13/20 09:00 Active 1 tab PO DAILY Pantoprazole [ProTONIX] Med 05/12/20 17:30 Active 40 mg PO BIDAC Potassium Chloride [Klor-Con M20] Med 05/13/20 09:00 Active 20 meq PO DAILY Sertraline [Zoloft] Med 05/13/20 09:00 Active 100 mg PO DAILY Sodium Chloride 0.9% [Normal Saline] 1,000 ml Med 05/12/20 14:00 Active IV ASDIRECTED Spironolactone [Aldactone] Med 05/13/20 09:00 Active 25 mg PO DAILY Thiamine [Vitamin B-1] Med 05/13/20 09:00 Active 100 mg PO DAILY ondansetron HCL [Zofran] Med 05/12/20 15:07 Ordered 4 mg PO .Q6H PRN Resuscitation Status Routine Resus Stat 05/12/20 13:52 Ordered Medication Orders Hydrocodone Bitart/Acetaminophen (Mcintosh 325-5 Mg) 1 tab PO Q6H PRN PRN Reason: Pain Aspirin (Aspirin) 81 mg PO DAILY [facility] Calcium Carbonate/Glycine (Oyster Shell Calcium) 500 mg PO DAILY [facility] Enoxaparin Sodium (Lovenox) 40 mg SUBCUT Q24H [facility] Folic Acid (Folic Acid) 1 mg PO DAILY [facility] Sodium Chloride (Normal Saline) 1,000 mls @ 250 mls/hr IV ASDIRECTED [facility] Last Admin: 05/12/20 13:55 Dose: 250 mls/hr Documented by: DEBRA Insulin Human Lispro (Humalog) 0 unit SUBCUT Q4H [facility]; Protocol Lorazepam (Ativan) 1 mg IVPUSH Q6H PRN; Protocol PRN Reason: Withdrawal Symptoms Metoprolol Succinate (Toprol Xl) 25 mg PO DAILY [facility] Mirtazapine (Remeron) 30 mg PO BEDTIME [facility] Multivitamins/Minerals/Vitamin C (Tab-A-Jocelin) 1 tab PO DAILY [facility] Ondansetron HCl (Zofran Odt) 4 mg PO Q6H PRN PRN Reason: Nausea Pantoprazole Sodium (Protonix) 40 mg PO BIDAC [facility] Potassium Chloride (Klor-Con M20) 20 meq PO DAILY [facility] Sertraline HCl (Zoloft) 100 mg PO DAILY [facility] Spironolactone (Aldactone) 25 mg PO DAILY [facility] Thiamine HCl (Vitamin B-1) 100 mg PO DAILY [facility] Assessment/Plan Comment:: 1. Admit to inpatient. 2. IV fluids 100 mL an hour because not able to get larger IV line in. Pressure to push fluids. By mouth. 3. Lovenox for clot prophylaxis. 4. DNR/DNI per patient 5. Withdrawal protocol with Ativan 6. Sliding scale of insulin every 4 hours with Accu-Cheks every 4 hours 7. Potassium every 4 hours for 4 times and call if the potassium trustful 3.9. 8. ADA diet 9. Up with assist 10. Restart most of her home medications. 11. Check hemoglobin A1c, microalbumin creatinine ratio in the urine and lipids, CMP and CBC in a.m. - Mortality Measure Prognosis:: Good
[2020-05-12] MEDS: Insulin Lispro 100 Unit/ML 3 ML KwikPen SUBCUT SCH ×2 (16:39→21:00)
[2020-05-12] MEDS: Enoxaparin 40 MG/0.4 ML Syringe SUBCUT SCH (17:14)
[2020-05-12] MEDS ORDERED: Pantoprazole 40 MG Tab.CR PO SCH (17:30)
[2020-05-12] MEDS: Mirtazapine 30 MG Tab PO SCH (20:59)
[2020-05-13] MEDS: Insulin Lispro 100 Unit/ML 3 ML KwikPen SUBCUT SCH ×3 (00:46→08:22)
[2020-05-13] MEDS: Pantoprazole 40 MG Tab.CR PO SCH ×2 (05:00→18:13)
[2020-05-13 05:25] LABS: HEMOGLOBIN A1C 4.9 % (<5.7)
--- NOTE | 2020-05-13 08:23 | PCM.PN ---
- General Info Date of Service: 05/13/20 Admission Dx/Problem (Free Text): Patient feels better today. She says she doesn't feel too shaky. She has no nausea, vomiting, fevers, chills, cough, chest pain. - Patient Data Vitals - Most Recent: Last Vital Signs Temp 98.7 F 05/13/20 04:00 Pulse 94 05/13/20 04:00 Resp 18 05/13/20 04:00 BP 150/80 H 05/13/20 04:00 Pulse Ox 98 05/13/20 04:00 Weight - Most Recent: 106 lb 2 oz I&O - Last 24 Hours: Intake & Output 05/12/20 05/13/20 05/13/20 22:59 06:59 14:59 Intake Total 782 Balance 782 Lab Results Last 24 Hours: Laboratory Results - last 24 hr 05/12/20 05/12/20 05/12/20 Range/Units 05:35 05:35 08:34 WBC (4.5-12.0) X10-3/uL RBC (3.23-5.20) x10(6)uL Hgb (11.5-15.5) g/dL Hct (30.0-51.3) % MCV (80-96) fL MCH (27.7-33.6) pg MCHC (32.2-35.4) g/dL RDW (11.5-15.5) % Plt Count (125-369) X10(3)uL MPV (7.4-10.4) fL Add Manual Diff Neutrophils % (Manual) (46-82) % Band Neutrophils % (0-6) % Lymphocytes % (Manual) (13-37) % Monocytes % (Manual) (4-12) % Eosinophils % (Manual) (0-5) % Basophils % (Manual) (0-2) % Metamyelocytes % (0-0) % Anisocytosis PT 9.8 (9.0-11.1) sec INR 0.90 L (1.00-1.24) APTT 23.8 L (24.4-33.2) SECONDS Sodium (135-145) mmol/L Potassium (3.5-5.3) mmol/L Chloride (100-110) mmol/L Carbon Dioxide (21-32) mmol/L BUN (7-18) mg/dL Creatinine (0.55-1.02) mg/dL Est Cr Clr Drug Dosing mL/min Estimated GFR (MDRD) (>60) BUN/Creatinine Ratio (9-20) Glucose (80-116) mg/dL POC Glucose 370 H (74-100) mg/dL Hemoglobin A1c (<5.7) % Calcium (8.6-10.2) mg/dL Total Bilirubin (0.1-1.3) mg/dL AST (5-25) IU/L ALT (12-36) U/L Alkaline Phosphatase (56-112) IU/L Total Protein (6.0-8.0) g/dL Albumin (3.2-4.6) g/dL Globulin g/dL Albumin/Globulin Ratio Triglycerides (15-150) mg/dL Cholesterol (50-200) mg/dL LDL Cholesterol Direct (60-130) mg/dL HDL Cholesterol (40-75) mg/dL Cholesterol/HDL Ratio (0-5) 05/12/20 05/12/20 05/12/20 Range/Units 12:40 16:15 16:28 WBC (4.5-12.0) X10-3/uL RBC (3.23-5.20) x10(6)uL Hgb (11.5-15.5) g/dL Hct (30.0-51.3) % MCV (80-96) fL MCH (27.7-33.6) pg MCHC (32.2-35.4) g/dL RDW (11.5-15.5) % Plt Count (125-369) X10(3)uL MPV (7.4-10.4) fL Add Manual Diff Neutrophils % (Manual) (46-82) % Band Neutrophils % (0-6) % Lymphocytes % (Manual) (13-37) % Monocytes % (Manual) (4-12) % Eosinophils % (Manual) (0-5) % Basophils % (Manual) (0-2) % Metamyelocytes % (0-0) % Anisocytosis PT (9.0-11.1) sec INR (1.00-1.24) APTT (24.4-33.2) SECONDS Sodium (135-145) mmol/L Potassium 3.9 (3.5-5.3) mmol/L Chloride (100-110) mmol/L Carbon Dioxide (21-32) mmol/L BUN (7-18) mg/dL Creatinine (0.55-1.02) mg/dL Est Cr Clr Drug Dosing mL/min Estimated GFR (MDRD) (>60) BUN/Creatinine Ratio (9-20) Glucose (80-116) mg/dL POC Glucose 78 77 (74-100) mg/dL Hemoglobin A1c (<5.7) % Calcium (8.6-10.2) mg/dL Total Bilirubin (0.1-1.3) mg/dL AST (5-25) IU/L ALT (12-36) U/L Alkaline Phosphatase (56-112) IU/L Total Protein (6.0-8.0) g/dL Albumin (3.2-4.6) g/dL Globulin g/dL Albumin/Globulin Ratio Triglycerides (15-150) mg/dL Cholesterol (50-200) mg/dL LDL Cholesterol Direct (60-130) mg/dL HDL Cholesterol (40-75) mg/dL Cholesterol/HDL Ratio (0-5) 05/12/20 05/12/20 05/12/20 Range/Units 20:27 20:35 23:05 WBC (4.5-12.0) X10-3/uL RBC (3.23-5.20) x10(6)uL Hgb (11.5-15.5) g/dL Hct (30.0-51.3) % MCV (80-96) fL MCH (27.7-33.6) pg MCHC (32.2-35.4) g/dL RDW (11.5-15.5) % Plt Count (125-369) X10(3)uL MPV (7.4-10.4) fL Add Manual Diff Neutrophils % (Manual) (46-82) % Band Neutrophils % (0-6) % Lymphocytes % (Manual) (13-37) % Monocytes % (Manual) (4-12) % Eosinophils % (Manual) (0-5) % Basophils % (Manual) (0-2) % Metamyelocytes % (0-0) % Anisocytosis PT (9.0-11.1) sec INR (1.00-1.24) APTT (24.4-33.2) SECONDS Sodium (135-145) mmol/L Potassium 3.7 (3.5-5.3) mmol/L Chloride (100-110) mmol/L Carbon Dioxide (21-32) mmol/L BUN (7-18) mg/dL Creatinine (0.55-1.02) mg/dL Est Cr Clr Drug Dosing mL/min Estimated GFR (MDRD) (>60) BUN/Creatinine Ratio (9-20) Glucose (80-116) mg/dL POC Glucose 160 H 83 (74-100) mg/dL Hemoglobin A1c (<5.7) % Calcium (8.6-10.2) mg/dL Total Bilirubin (0.1-1.3) mg/dL AST (5-25) IU/L ALT (12-36) U/L Alkaline Phosphatase (56-112) IU/L Total Protein (6.0-8.0) g/dL Albumin (3.2-4.6) g/dL Globulin g/dL Albumin/Globulin Ratio Triglycerides (15-150) mg/dL Cholesterol (50-200) mg/dL LDL Cholesterol Direct (60-130) mg/dL HDL Cholesterol (40-75) mg/dL Cholesterol/HDL Ratio (0-5) 05/13/20 05/13/20 05/13/20 Range/Units 00:30 04:18 04:55 WBC 5.9 (4.5-12.0) X10-3/uL RBC 3.12 L (3.23-5.20) x10(6)uL Hgb 7.8 L (11.5-15.5) g/dL Hct 24.9 L (30.0-51.3) % MCV 79.7 L (80-96) fL MCH 24.9 L (27.7-33.6) pg MCHC 31.3 L (32.2-35.4) g/dL RDW 18.3 H (11.5-15.5) % Plt Count 578 H (125-369) X10(3)uL MPV 6.1 L (7.4-10.4) fL Add Manual Diff Yes Neutrophils % (Manual) 43 L (46-82) % Band Neutrophils % 2 (0-6) % Lymphocytes % (Manual) 41 H (13-37) % Monocytes % (Manual) 8 (4-12) % Eosinophils % (Manual) 3 (0-5) % Basophils % (Manual) 1 (0-2) % Metamyelocytes % 2 H (0-0) % Anisocytosis Few PT (9.0-11.1) sec INR (1.00-1.24) APTT (24.4-33.2) SECONDS Sodium (135-145) mmol/L Potassium 3.3 L (3.5-5.3) mmol/L Chloride (100-110) mmol/L Carbon Dioxide (21-32) mmol/L BUN (7-18) mg/dL Creatinine (0.55-1.02) mg/dL Est Cr Clr Drug Dosing mL/min Estimated GFR (MDRD) (>60) BUN/Creatinine Ratio (9-20) Glucose (80-116) mg/dL POC Glucose 94 (74-100) mg/dL Hemoglobin A1c (<5.7) % Calcium (8.6-10.2) mg/dL Total Bilirubin (0.1-1.3) mg/dL AST (5-25) IU/L ALT (12-36) U/L Alkaline Phosphatase (56-112) IU/L Total Protein (6.0-8.0) g/dL Albumin (3.2-4.6) g/dL Globulin g/dL Albumin/Globulin Ratio Triglycerides (15-150) mg/dL Cholesterol (50-200) mg/dL LDL Cholesterol Direct (60-130) mg/dL HDL Cholesterol (40-75) mg/dL Cholesterol/HDL Ratio (0-5) 05/13/20 05/13/20 Range/Units 04:55 04:55 WBC (4.5-12.0) X10-3/uL RBC (3.23-5.20) x10(6)uL Hgb (11.5-15.5) g/dL Hct (30.0-51.3) % MCV (80-96) fL MCH (27.7-33.6) pg MCHC (32.2-35.4) g/dL RDW (11.5-15.5) % Plt Count (125-369) X10(3)uL MPV (7.4-10.4) fL Add Manual Diff Neutrophils % (Manual) (46-82) % Band Neutrophils % (0-6) % Lymphocytes % (Manual) (13-37) % Monocytes % (Manual) (4-12) % Eosinophils % (Manual) (0-5) % Basophils % (Manual) (0-2) % Metamyelocytes % (0-0) % Anisocytosis PT (9.0-11.1) sec INR (1.00-1.24) APTT (24.4-33.2) SECONDS Sodium 143 (135-145) mmol/L Potassium 3.3 L (3.5-5.3) mmol/L Chloride 105 D (100-110) mmol/L Carbon Dioxide 28 (21-32) mmol/L BUN 8 D (7-18) mg/dL Creatinine 0.8 (0.55-1.02) mg/dL Est Cr Clr Drug Dosing 50.36 mL/min Estimated GFR (MDRD) > 60 (>60) BUN/Creatinine Ratio 10.0 (9-20) Glucose 140 H D (80-116) mg/dL POC Glucose (74-100) mg/dL Hemoglobin A1c 4.9 (<5.7) % Calcium 8.0 L (8.6-10.2) mg/dL Total Bilirubin 0.7 (0.1-1.3) mg/dL AST 44 H D (5-25) IU/L ALT 26 D (12-36) U/L Alkaline Phosphatase 94 (56-112) IU/L Total Protein 6.3 (6.0-8.0) g/dL Albumin 3.1 L (3.2-4.6) g/dL Globulin 3.2 g/dL Albumin/Globulin Ratio 1.0 Triglycerides 118 (15-150) mg/dL Cholesterol 210 H (50-200) mg/dL LDL Cholesterol Direct 75 (60-130) mg/dL HDL Cholesterol 104 H (40-75) mg/dL Cholesterol/HDL Ratio 2.0 (0-5) Med Orders - Current: Current Medications Hydrocodone Bitart/Acetaminophen ([place] 325-5 Mg) 1 tab PO Q6H PRN PRN Reason: Pain Aspirin (Aspirin) 81 mg PO DAILY [facility] Calcium Carbonate/Glycine (Oyster Shell Calcium) 500 mg PO DAILY [facility] Enoxaparin Sodium (Lovenox) 40 mg SUBCUT Q24H [facility] Last Admin: 05/12/20 17:14 Dose: 40 mg Documented by: Folic Acid (Folic Acid) 1 mg PO DAILY [facility] Lorazepam (Ativan) 1 mg IVPUSH Q6H PRN; Protocol PRN Reason: Withdrawal Symptoms Metformin HCl (Glucophage Xr) 500 mg PO BIDMEALS [facility] Metoprolol Succinate (Toprol Xl) 25 mg PO DAILY [facility] Mirtazapine (Remeron) 30 mg PO BEDTIME [facility] Last Admin: 05/12/20 20:59 Dose: 30 mg Documented by: Multivitamins/Minerals/Vitamin C (Tab-A-Jocelin) 1 tab PO DAILY [facility] Ondansetron HCl (Zofran Odt) 4 mg PO Q6H PRN PRN Reason: Nausea Last Admin: 05/12/20 17:15 Dose: 4 mg Documented by: Pantoprazole Sodium (Protonix) 40 mg PO BIDAC@0600,1730 [facility] Last Admin: 05/13/20 05:00 Dose: 40 mg Documented by: Potassium Chloride (Klor-Con M20) 20 meq PO DAILY [facility] Sertraline HCl (Zoloft) 100 mg PO DAILY [facility] Spironolactone (Aldactone) 25 mg PO DAILY [facility] Thiamine HCl (Vitamin B-1) 100 mg PO DAILY [facility] Discontinued Medications Sodium Chloride (Normal Saline) 1,000 mls @ 999 mls/hr IV .BOLUS ONE Stop: 05/12/20 06:07 Last Infusion: 05/12/20 11:50 Dose: 250 mls/hr Documented by: Sodium Chloride (Normal Saline) 1,000 mls @ 100 mls/hr IV ASDIRECTED [facility] Last Admin: 05/12/20 22:43 Dose: 100 mls/hr Documented by: Insulin Human Lispro (Humalog) 0 unit SUBCUT Q4H [facility]; Protocol Last Admin: 05/13/20 04:43 Dose: Not Given Documented by: Insulin Human Regular (Humulin R) 15 unit SUBCUT BIDAC [facility] Last Admin: 05/12/20 07:20 Dose: 15 units Documented by: Metoclopramide HCl (Reglan) 10 mg IVPUSH ONETIME ONE Stop: 05/12/20 08:59 Last Admin: 05/12/20 09:03 Dose: 10 mg Documented by: Ondansetron HCl (Zofran) 4 mg IVPUSH ONETIME ONE Stop: 05/12/20 05:09 Last Admin: 05/12/20 08:10 Dose: 4 mg Documented by: Ondansetron HCl (Zofran Odt) 4 mg PO ONETIME ONE Stop: 05/12/20 06:47 Last Admin: 05/12/20 06:47 Dose: 4 mg Documented by: Ondansetron HCl (Zofran Odt) Confirm Administered Dose 4 mg .ROUTE .STK-MED ONE Stop: 05/12/20 06:46 Last Admin: 05/12/20 07:19 Dose: Not Given Documented by: Ondansetron HCl (Zofran) Confirm Administered Dose 4 mg .ROUTE .STK-MED ONE Stop: 05/12/20 08:07 Last Admin: 05/12/20 08:11 Dose: Not Given Documented by: Pantoprazole Sodium (Protonix) 40 mg PO BIDAC [facility] Last Admin: 05/12/20 17:15 Dose: 40 mg Documented by: - Exam General: Alert, Oriented, Cooperative Neck: Supple Lungs: Clear to Auscultation, Normal Respiratory Effort Cardiovascular: Regular Rate, Regular Rhythm, No Murmurs Extremities: No Pedal Edema Sepsis Event Note - Evaluation Sepsis Screening Result: No Definite Risk - Focused Exam Vital Signs: Vital Signs Temp Pulse Resp BP Pulse Ox 05/13/20 04:00 98.7 F 94 18 150/80 H 98 05/12/20 22:39 98.7 F 92 18 162/88 H 96 - Problem List & Annotations (1) Alcohol withdrawal SNOMED Code(s): 305014301 Code(s): F10.239 - ALCOHOL DEPENDENCE WITH WITHDRAWAL, UNSPECIFIED Status: Acute Current Visit: Yes (2) Palliative care status SNOMED Code(s): 569626620 Code(s): Z51.5 - ENCOUNTER FOR PALLIATIVE CARE Status: Acute Current Visit: Yes (3) DKA (diabetic ketoacidoses) SNOMED Code(s): 982521926, 405241209 Code(s): E11.10 - TYPE 2 DIABETES MELLITUS WITH KETOACIDOSIS WITHOUT COMA Status: Acute Current Visit: Yes (4) Abdominal pain SNOMED Code(s): 12383058 Code(s): R10.9 - UNSPECIFIED ABDOMINAL PAIN Status: Acute Current Visit: No (5) Alcohol abuse with intoxication SNOMED Code(s): 02991918 Code(s): F10.129 - ALCOHOL ABUSE WITH INTOXICATION, UNSPECIFIED Status: Acute Current Visit: No (6) Anemia SNOMED Code(s): 905400243 Code(s): D64.9 - ANEMIA, UNSPECIFIED Status: Acute Current Visit: No (7) Dehydration SNOMED Code(s): 71047556 Code(s): E86.0 - DEHYDRATION Status: Acute Current Visit: No (8) MDD (major depressive disorder) SNOMED Code(s): 188932919 Code(s): F32.9 - MAJOR DEPRESSIVE DISORDER, SINGLE EPISODE, UNSPECIFIED Status: Acute Current Visit: No Qualifiers: Major depression recurrence: recurrent Active/Remission status: currently active (9) Anemia SNOMED Code(s): 024676873 Code(s): D64.9 - ANEMIA, UNSPECIFIED Status: Acute Current Visit: Yes (10) Thrombocytosis SNOMED Code(s): 1088052 Code(s): D47.3 - ESSENTIAL (HEMORRHAGIC) THROMBOCYTHEMIA Status: Acute Current Visit: Yes - Problem List Review Problem List Initiated/Reviewed/Updated: Yes - My Orders Last 24 Hours: My Active Orders 05/12/20 15:07 Acetaminophen/HYDROcodone [[place] 325-5 MG] 1 tab PO Q6H PRN Ondansetron [Zofran ODT] 4 mg PO Q6H PRN 05/12/20 15:09 Up With Assistance [RC] ASDIRECTED 05/12/20 15:11 LORazepam [Ativan] 1 mg IVPUSH Q6H PRN 05/12/20 15:14 Accu Check [Blood Glucose Check, Bedside] [RC] QIDACANDBED 05/12/20 15:15 Consult to Case Management/Curing Machine Operator [CONS] Routine 05/12/20 15:30 Enoxaparin [Lovenox] 40 mg SUBCUT Q24H 05/12/20 Dinner Consistent Carbohydrate Diet [DIET] 05/12/20 21:00 Mirtazapine [Remeron] 30 mg PO BEDTIME 05/13/20 06:00 MICROALB/CREAT RATIO, RANDM UR Routine Pantoprazole [ProTONIX] 40 mg PO BIDAC@0600,1730 05/13/20 08:17 Convert IV to Saline Lock [OM.PC] Routine 05/13/20 09:00 Aspirin 81 mg PO DAILY Calcium Carbonate [Oyster Shell Calcium] 500 mg PO DAILY Folic Acid 1 mg PO DAILY Metoprolol Succinate [Toprol XL] 25 mg PO DAILY Multivitamins [Tab-A-Jocelin] 1 tab PO DAILY Potassium Chloride [Klor-Con M20] 20 meq PO DAILY Sertraline [Zoloft] 100 mg PO DAILY Spironolactone [Aldactone] 25 mg PO DAILY Thiamine [Vitamin B-1] 100 mg PO DAILY 05/13/20 18:00 metFORMIN [Glucophage XR] 500 mg PO BIDMEALS - Plan Plan:: 1. Change Accu-Cheks to 3 times a day with meals and before bedtime 2. DC IV insulin 3. Metformin 500 mg twice a day with meals 4. DC IV fluids and saline lock IV. 5. Up with assist and ambulation. 6. Social service to see. 7. Start [facility] for addiction
[2020-05-13] MEDS ORDERED: Naltrexone 50 MG Tab PO SCH (09:00)
[2020-05-13] MEDS ORDERED: Metoprolol Succinate 25 MG Tab.ER PO SCH (09:00)
[2020-05-13] MEDS ORDERED: Sertraline 100 MG Tab PO SCH (09:00)
[2020-05-13] MEDS: Aspirin 81 MG Tab.Chew PO SCH (09:31)
[2020-05-13] MEDS: Spironolactone 25 MG Tab PO SCH (09:31)
[2020-05-13] MEDS: Folic Acid 1 MG Tab PO SCH (09:31)
[2020-05-13] MEDS: metFORMIN 500 MG Tab.ER PO SCH ×2 (09:31→18:12)
[2020-05-13] MEDS: Potassium Chloride 20 MEQ Tab.ER PO SCH (09:32)
[2020-05-13] MEDS: Calcium Carbonate 500 MG Tablet PO SCH (09:32)
[2020-05-13] MEDS: Thiamine 100 MG Tab PO SCH (09:32)
[2020-05-13] MEDS: Multivitamin Tab PO SCH (09:32)
[2020-05-13] MEDS: PARoxetine 20 MG Tab PO SCH (10:20)
[2020-05-13] MEDS: Magnesium Oxide 400 MG Tab PO SCH (10:20)
--- NOTE | 2020-05-13 11:01 | CR ---
INDICATION: Vomiting. ABDOMEN TWO VIEWS: Four images of the abdomen in supine and upright projections were obtained 05/12/20 and compared with 10/08/09 abdomen x-ray series and CT of the abdomen 05/03/20. Overall, the pattern of gas and feces is fairly nonspecific. One small air-fluid level is noted in the right lower quadrant. No evidence of free air or definite mechanically obstructive process was identified. There is however, noted a loop of bowel in the mid abdomen extending to the left which is felt to be compatible with a loop of sigmoid colon rising out of the pelvis. This could represent a partial or early or intermittent sigmoid volvulus. The possibly that it represents very redundant transverse colon is felt to be less likely. The bowel gas pattern was otherwise nonspecific. No other evidence of organomegaly, mass lesions, or nonvascular pathologic calcifications were identified. A few phleboliths are noted in the pelvis. IMPRESSION: As on the previous abdomen x-ray, it is difficult to entirely exclude a partial or early or intermittent sigmoid volvulus - correlate clinically - colonoscopy or barium enema may be helpful for further evaluation. There does not appear to be significant distention of the more proximal colon and small bowel loop to strongly suggest an acute mechanical obstructive process at this moment. MTDD
[2020-05-13] MEDS ORDERED: Sodium Chloride 0.9% 10 ML Syringe FLUSH PRN (15:48)
[2020-05-13] MEDS: Enoxaparin 40 MG/0.4 ML Syringe SUBCUT SCH (16:18)
[2020-05-13] MEDS: Mirtazapine 30 MG Tab PO SCH (20:20)
[2020-05-14] MEDS ORDERED: Acetaminophen 325 MG Tab PO PRN (02:48)
[2020-05-14] MEDS: Pantoprazole 40 MG Tab.CR PO SCH ×2 (05:13→18:02)
--- NOTE | 2020-05-14 08:13 | PCM.PN ---
- General Info Date of Service: 05/14/20 Admission Dx/Problem (Free Text): The patient states she had a lot of abdominal pain lasting epigastric. She's had pancreatitis in the past but she has no nausea and vomiting anymore. She denies back easier, melena diarrhea constipation. She dysuria, pyuria, hematuria. She's had no shakiness from withdrawal. - Patient Data Vitals - Most Recent: Last Vital Signs Temp 98.1 F 05/14/20 06:00 Pulse 76 05/14/20 06:00 Resp 20 05/14/20 06:00 BP 154/94 H 05/14/20 06:00 Pulse Ox 96 05/14/20 06:00 Weight - Most Recent: 106 lb 2 oz Lab Results Last 24 Hours: Laboratory Results - last 24 hr 05/13/20 05/13/20 05/13/20 Range/Units 11:36 17:01 20:17 Sodium (135-145) mmol/L Potassium (3.5-5.3) mmol/L Chloride (100-110) mmol/L Carbon Dioxide (21-32) mmol/L BUN (7-18) mg/dL Creatinine (0.55-1.02) mg/dL Est Cr Clr Drug Dosing mL/min Estimated GFR (MDRD) (>60) BUN/Creatinine Ratio (9-20) Glucose (80-116) mg/dL POC Glucose 100 99 90 (74-100) mg/dL Calcium (8.6-10.2) mg/dL 05/14/20 Range/Units 06:15 Sodium 144 (135-145) mmol/L Potassium 3.6 (3.5-5.3) mmol/L Chloride 104 (100-110) mmol/L Carbon Dioxide 30 (21-32) mmol/L BUN 6 L (7-18) mg/dL Creatinine 0.6 (0.55-1.02) mg/dL Est Cr Clr Drug Dosing 67.14 mL/min Estimated GFR (MDRD) > 60 (>60) BUN/Creatinine Ratio 10.0 (9-20) Glucose 93 (80-116) mg/dL POC Glucose (74-100) mg/dL Calcium 8.7 (8.6-10.2) mg/dL Med Orders - Current: Current Medications Acetaminophen (Tylenol) 650 mg PO Q4H PRN PRN Reason: Pain Last Admin: 05/14/20 03:26 Dose: 650 mg Documented by: Hydrocodone Bitart/Acetaminophen ([place] 325-5 Mg) 1 tab PO Q4H PRN PRN Reason: Pain Aspirin (Aspirin) 81 mg PO DAILY [facility] Last Admin: 05/13/20 09:31 Dose: 81 mg Documented by: Calcium Carbonate/Glycine (Oyster Shell Calcium) 500 mg PO DAILY [facility] Last Admin: 05/13/20 09:32 Dose: 500 mg Documented by: Enoxaparin Sodium (Lovenox) 40 mg SUBCUT Q24H [facility] Last Admin: 05/13/20 16:18 Dose: 40 mg Documented by: Folic Acid (Folic Acid) 1 mg PO DAILY [facility] Last Admin: 05/13/20 09:31 Dose: 1 mg Documented by: Lorazepam (Ativan) 1 mg IVPUSH Q6H PRN; Protocol PRN Reason: Withdrawal Symptoms Magnesium Oxide (Magnesium Oxide) 400 mg PO DAILY [facility] Last Admin: 05/13/20 10:20 Dose: 400 mg Documented by: Metformin HCl (Glucophage Xr) 500 mg PO BIDMEALS [facility] Last Admin: 05/13/20 18:12 Dose: 500 mg Documented by: Mirtazapine (Remeron) 30 mg PO BEDTIME [facility] Last Admin: 05/13/20 20:20 Dose: 30 mg Documented by: Multivitamins/Minerals/Vitamin C (Tab-A-Jocelin) 1 tab PO DAILY [facility] Last Admin: 05/13/20 09:32 Dose: 1 tab Documented by: Ondansetron HCl (Zofran Odt) 4 mg PO Q6H PRN PRN Reason: Nausea Last Admin: 05/12/20 17:15 Dose: 4 mg Documented by: Pantoprazole Sodium (Protonix) 40 mg PO BIDAC@0600,1730 [facility] Last Admin: 05/14/20 05:13 Dose: 40 mg Documented by: Paroxetine HCl (Paxil) 20 mg PO DAILY [facility] Last Admin: 05/13/20 10:20 Dose: 20 mg Documented by: Potassium Chloride (Klor-Con M20) 20 meq PO DAILY [facility] Last Admin: 05/13/20 09:32 Dose: 20 meq Documented by: Sodium Chloride (Saline Flush) 10 ml FLUSH ASDIRECTED PRN PRN Reason: saline flush Last Admin: 05/13/20 16:24 Dose: 10 ml Documented by: Spironolactone (Aldactone) 25 mg PO DAILY [facility] Last Admin: 05/13/20 09:31 Dose: 25 mg Documented by: Thiamine HCl (Vitamin B-1) 100 mg PO DAILY [facility] Last Admin: 05/13/20 09:32 Dose: 100 mg Documented by: Discontinued Medications Hydrocodone Bitart/Acetaminophen ([place] 325-5 Mg) 1 tab PO Q6H PRN PRN Reason: Pain Sodium Chloride (Normal Saline) 1,000 mls @ 999 mls/hr IV .BOLUS ONE Stop: 05/12/20 06:07 Last Infusion: 05/12/20 11:50 Dose: 250 mls/hr Documented by: Sodium Chloride (Normal Saline) 1,000 mls @ 100 mls/hr IV ASDIRECTED [facility] Last Admin: 05/12/20 22:43 Dose: 100 mls/hr Documented by: Insulin Human Lispro (Humalog) 0 unit SUBCUT Q4H [facility]; Protocol Last Admin: 05/13/20 08:22 Dose: Not Given Documented by: Insulin Human Regular (Humulin R) 15 unit SUBCUT BIDAC [facility] Last Admin: 05/12/20 07:20 Dose: 15 units Documented by: Metoclopramide HCl (Reglan) 10 mg IVPUSH ONETIME ONE Stop: 05/12/20 08:59 Last Admin: 05/12/20 09:03 Dose: 10 mg Documented by: Metoprolol Succinate (Toprol Xl) 25 mg PO DAILY [facility] Last Admin: 05/13/20 10:21 Dose: Not Given Documented by: Naltrexone HCl (Naltrexone) 50 mg PO DAILY [facility] Last Admin: 05/13/20 09:32 Dose: 50 mg Documented by: Ondansetron HCl (Zofran) 4 mg IVPUSH ONETIME ONE Stop: 05/12/20 05:09 Last Admin: 05/12/20 08:10 Dose: 4 mg Documented by: Ondansetron HCl (Zofran Odt) 4 mg PO ONETIME ONE Stop: 05/12/20 06:47 Last Admin: 05/12/20 06:47 Dose: 4 mg Documented by: Ondansetron HCl (Zofran Odt) Confirm Administered Dose 4 mg .ROUTE .STK-MED ONE Stop: 05/12/20 06:46 Last Admin: 05/12/20 07:19 Dose: Not Given Documented by: Ondansetron HCl (Zofran) Confirm Administered Dose 4 mg .ROUTE .STK-MED ONE Stop: 05/12/20 08:07 Last Admin: 05/12/20 08:11 Dose: Not Given Documented by: Pantoprazole Sodium (Protonix) 40 mg PO BIDAC [facility] Last Admin: 05/12/20 17:15 Dose: 40 mg Documented by: - Exam General: Alert, Oriented, Cooperative Neck: Supple Lungs: Clear to Auscultation, Normal Respiratory Effort Cardiovascular: Regular Rate, Regular Rhythm, No Murmurs GI/Abdominal Exam: Other (Abdomen is soft with some mild pain epigastric. No rebound or guarding.) Extremities: No Pedal Edema Sepsis Event Note - Evaluation Sepsis Screening Result: No Definite Risk - Focused Exam Vital Signs: Vital Signs Temp Pulse Resp BP Pulse Ox 05/14/20 06:00 98.1 F 76 20 154/94 H 96 05/14/20 00:00 97.9 F 88 20 163/84 H 96 - Problem List & Annotations (1) Alcohol withdrawal SNOMED Code(s): 926886812 Code(s): F10.239 - ALCOHOL DEPENDENCE WITH WITHDRAWAL, UNSPECIFIED Status: Acute Current Visit: Yes (2) Palliative care status SNOMED Code(s): 640140526 Code(s): Z51.5 - ENCOUNTER FOR PALLIATIVE CARE Status: Acute Current Visit: Yes (3) DKA (diabetic ketoacidoses) SNOMED Code(s): 385445858, 256077726 Code(s): E11.10 - TYPE 2 DIABETES MELLITUS WITH KETOACIDOSIS WITHOUT COMA Status: Acute Current Visit: Yes (4) Abdominal pain SNOMED Code(s): 41879266 Code(s): R10.9 - UNSPECIFIED ABDOMINAL PAIN Status: Acute Current Visit: No (5) Alcohol abuse with intoxication SNOMED Code(s): 06383689 Code(s): F10.129 - ALCOHOL ABUSE WITH INTOXICATION, UNSPECIFIED Status: Acute Current Visit: No (6) Anemia SNOMED Code(s): 489225159 Code(s): D64.9 - ANEMIA, UNSPECIFIED Status: Acute Current Visit: No (7) Dehydration SNOMED Code(s): 07183948 Code(s): E86.0 - DEHYDRATION Status: Acute Current Visit: No (8) MDD (major depressive disorder) SNOMED Code(s): 165421232 Code(s): F32.9 - MAJOR DEPRESSIVE DISORDER, SINGLE EPISODE, UNSPECIFIED Status: Acute Current Visit: No Qualifiers: Major depression recurrence: recurrent Active/Remission status: currently active (9) Anemia SNOMED Code(s): 726965768 Code(s): D64.9 - ANEMIA, UNSPECIFIED Status: Acute Current Visit: Yes (10) Thrombocytosis SNOMED Code(s): 4130046 Code(s): D47.3 - ESSENTIAL (HEMORRHAGIC) THROMBOCYTHEMIA Status: Acute Current Visit: Yes (11) Abdominal pain SNOMED Code(s): 66690995 Code(s): R10.9 - UNSPECIFIED ABDOMINAL PAIN Status: Acute Current Visit: Yes - Problem List Review Problem List Initiated/Reviewed/Updated: Yes - My Orders Last 24 Hours: My Active Orders 05/13/20 08:17 Convert IV to Saline Lock [OM.PC] Routine 05/13/20 08:30 metFORMIN [Glucophage XR] 500 mg PO BIDMEALS 05/13/20 09:00 Aspirin 81 mg PO DAILY Calcium Carbonate [Oyster Shell Calcium] 500 mg PO DAILY Folic Acid 1 mg PO DAILY Magnesium Oxide 400 mg PO DAILY Multivitamins [Tab-A-Jocelin] 1 tab PO DAILY PARoxetine [Paxil] 20 mg PO DAILY Potassium Chloride [Klor-Con M20] 20 meq PO DAILY Spironolactone [Aldactone] 25 mg PO DAILY Thiamine [Vitamin B-1] 100 mg PO DAILY 05/13/20 15:30 MICROALB/CREAT RATIO, RANDM UR Routine 05/13/20 15:48 Sodium Chloride 0.9% [Saline Flush] 10 ml FLUSH ASDIRECTED PRN 05/14/20 02:48 Acetaminophen [TylenoL] 650 mg PO Q4H PRN 05/14/20 08:08 AMYLASE [CHEM] Routine 05/14/20 08:09 Acetaminophen/HYDROcodone [[place] 325-5 MG] 1 tab PO Q4H PRN 05/14/20 Lunch Clear Liquid Diet [DIET] - Assessment Assessment:: 1. Stop full diet and start clear liquid diet until I have an answer about her abdominal pain 2. Stop naltrexone and start hydrocodone for pain 3. Amylase. If it's elevated proceed to CT of the abdomen - Plan Plan:: 1. Change Accu-Cheks to 3 times a day with meals and before bedtime 2. DC IV insulin 3. Metformin 500 mg twice a day with meals 4. DC IV fluids and saline lock IV. 5. Up with assist and ambulation. 6. Social service to see. 7. Start Rev[facility] for addiction
[2020-05-14] MEDS: metFORMIN 500 MG Tab.ER PO SCH ×2 (08:46→18:03)
[2020-05-14] MEDS: Aspirin 81 MG Tab.Chew PO SCH (08:47)
[2020-05-14] MEDS: Spironolactone 25 MG Tab PO SCH (08:47)
[2020-05-14] MEDS: Folic Acid 1 MG Tab PO SCH (08:48)
[2020-05-14] MEDS: Potassium Chloride 20 MEQ Tab.ER PO SCH (08:48)
[2020-05-14] MEDS: Multivitamin Tab PO SCH (08:49)
[2020-05-14] MEDS: Calcium Carbonate 500 MG Tablet PO SCH (08:49)
[2020-05-14] MEDS: PARoxetine 20 MG Tab PO SCH (08:49)
[2020-05-14] MEDS: Thiamine 100 MG Tab PO SCH (08:49)
[2020-05-14] MEDS: Magnesium Oxide 400 MG Tab PO SCH (08:49)
[2020-05-14] MEDS: Acetaminophen/HYDROcodone 325-5 MG Tab PO PRN ×4 (08:58→22:35)
[2020-05-14] MEDS: Sucralfate 1 GM Tab PO SCH ×3 (10:58→22:35)
[2020-05-14] MEDS: Enoxaparin 40 MG/0.4 ML Syringe SUBCUT SCH (16:00)
[2020-05-14] MEDS: Mirtazapine 30 MG Tab PO SCH (22:35)
[2020-05-15] MEDS: Acetaminophen/HYDROcodone 325-5 MG Tab PO PRN (06:22)
[2020-05-15] MEDS: Pantoprazole 40 MG Tab.CR PO SCH (06:22)
[2020-05-15] MEDS: Sucralfate 1 GM Tab PO SCH (06:30)
[2020-05-15] MEDS: PARoxetine 20 MG Tab PO SCH (08:07)
[2020-05-15] MEDS: Aspirin 81 MG Tab.Chew PO SCH (08:07)
[2020-05-15] MEDS: Multivitamin Tab PO SCH (08:08)
[2020-05-15] MEDS: Magnesium Oxide 400 MG Tab PO SCH (08:08)
[2020-05-15] MEDS: metFORMIN 500 MG Tab.ER PO SCH (08:08)
[2020-05-15] MEDS: Thiamine 100 MG Tab PO SCH (08:08)
[2020-05-15] MEDS: Potassium Chloride 20 MEQ Tab.ER PO SCH (08:09)
[2020-05-15] MEDS: Folic Acid 1 MG Tab PO SCH (08:09)
[2020-05-15] MEDS: Spironolactone 25 MG Tab PO SCH (08:09)
[2020-05-15] MEDS: Calcium Carbonate 500 MG Tablet PO SCH (08:10)
--- NOTE | 2020-05-15 08:43 | PCM.PN ---
- General Info Date of Service: 05/15/20 Admission Dx/Problem (Free Text): A she states her abdomen feels better today with less pain. The hydrocodone is helping also. She has normal bowel stools with no hematochezia or melena. She denies nausea, vomiting, fevers, chills, chest pain, shakiness or withdrawals. - Patient Data Vitals - Most Recent: Last Vital Signs Temp 98.4 F 05/15/20 06:00 Pulse 89 05/15/20 06:00 Resp 20 05/15/20 06:00 BP 174/99 H 05/15/20 06:00 Pulse Ox 96 05/15/20 06:00 Weight - Most Recent: 106 lb 2 oz Lab Results Last 24 Hours: Laboratory Results - last 24 hr 05/14/20 05/14/20 05/14/20 Range/Units 06:15 14:57 17:58 WBC (4.5-12.0) X10-3/uL RBC (3.23-5.20) x10(6)uL Hgb (11.5-15.5) g/dL Hct (30.0-51.3) % MCV (80-96) fL MCH (27.7-33.6) pg MCHC (32.2-35.4) g/dL RDW (11.5-15.5) % Plt Count (125-369) X10(3)uL MPV (7.4-10.4) fL Neut % (Auto) (46-82) % Lymph % (Auto) (13-37) % Dickens % (Auto) (4-12) % Eos % (Auto) (1.0-5.0) % Baso % (Auto) (0-2) % Neut # (Auto) (1.6-8.3) # Lymph # (Auto) (0.6-5.0) # Dickens # (Auto) (0.0-1.3) # Eos # (Auto) (0.0-0.8) # Baso # (Auto) (0.0-0.2) # POC Glucose 102 H 86 (74-100) mg/dL Amylase 58 (25-115) U/L 05/14/20 05/15/20 Range/Units 22:39 06:20 WBC 4.5 (4.5-12.0) X10-3/uL RBC 3.59 (3.23-5.20) x10(6)uL Hgb 8.9 L (11.5-15.5) g/dL Hct 28.9 L (30.0-51.3) % MCV 80.6 (80-96) fL MCH 24.7 L (27.7-33.6) pg MCHC 30.6 L (32.2-35.4) g/dL RDW 18.8 H (11.5-15.5) % Plt Count 597 H (125-369) X10(3)uL MPV 6.8 L (7.4-10.4) fL Neut % (Auto) 33.1 L (46-82) % Lymph % (Auto) 43.8 H (13-37) % Dickens % (Auto) 13.8 H (4-12) % Eos % (Auto) 7 H (1.0-5.0) % Baso % (Auto) 2 (0-2) % Neut # (Auto) 1.5 L (1.6-8.3) # Lymph # (Auto) 2.0 (0.6-5.0) # Dickens # (Auto) 0.6 (0.0-1.3) # Eos # (Auto) 0.3 (0.0-0.8) # Baso # (Auto) 0.1 (0.0-0.2) # POC Glucose 112 H (74-100) mg/dL Amylase (25-115) U/L Esa Results Last 24 Hours: Microbiology 05/14/20 22:40 Stool Occult Blood (ESA) - Final Stool / Feces NEGATIVE OCCULT BLOOD REFERENCE RANGE: NEGATIVE Med Orders - Current: Current Medications Acetaminophen (Tylenol) 650 mg PO Q4H PRN PRN Reason: Pain Last Admin: 05/14/20 03:26 Dose: 650 mg Documented by: Hydrocodone Bitart/Acetaminophen (Brave 325-5 Mg) 1 tab PO Q4H PRN PRN Reason: Pain Last Admin: 05/15/20 06:22 Dose: 1 tab Documented by: Aspirin (Aspirin) 81 mg PO DAILY [facility] Last Admin: 05/15/20 08:07 Dose: 81 mg Documented by: Calcium Carbonate/Glycine (Oyster Shell Calcium) 500 mg PO DAILY [facility] Last Admin: 05/15/20 08:10 Dose: 500 mg Documented by: Enoxaparin Sodium (Lovenox) 40 mg SUBCUT Q24H [facility] Last Admin: 05/14/20 16:00 Dose: 40 mg Documented by: Folic Acid (Folic Acid) 1 mg PO DAILY [facility] Last Admin: 05/15/20 08:09 Dose: 1 mg Documented by: Lorazepam (Ativan) 1 mg IVPUSH Q6H PRN; Protocol PRN Reason: Withdrawal Symptoms Magnesium Oxide (Magnesium Oxide) 400 mg PO DAILY [facility] Last Admin: 05/15/20 08:08 Dose: 400 mg Documented by: Metformin HCl (Glucophage Xr) 500 mg PO BIDMEALS [facility] Last Admin: 05/15/20 08:08 Dose: 500 mg Documented by: Mirtazapine (Remeron) 30 mg PO BEDTIME [facility] Last Admin: 05/14/20 22:35 Dose: 30 mg Documented by: Multivitamins/Minerals/Vitamin C (Tab-A-Jocelin) 1 tab PO DAILY [facility] Last Admin: 05/15/20 08:08 Dose: 1 tab Documented by: Ondansetron HCl (Zofran Odt) 4 mg PO Q6H PRN PRN Reason: Nausea Last Admin: 05/12/20 17:15 Dose: 4 mg Documented by: Pantoprazole Sodium (Protonix) 40 mg PO BIDAC@0600,1730 [facility] Last Admin: 05/15/20 06:22 Dose: 40 mg Documented by: Paroxetine HCl (Paxil) 20 mg PO DAILY [facility] Last Admin: 05/15/20 08:07 Dose: 20 mg Documented by: Potassium Chloride (Klor-Con M20) 20 meq PO DAILY [facility] Last Admin: 05/15/20 08:09 Dose: 20 meq Documented by: Sodium Chloride (Saline Flush) 10 ml FLUSH ASDIRECTED PRN PRN Reason: saline flush Last Admin: 05/13/20 16:24 Dose: 10 ml Documented by: Spironolactone (Aldactone) 25 mg PO DAILY [facility] Last Admin: 05/15/20 08:09 Dose: 25 mg Documented by: Sucralfate (Carafate) 1 gm PO QIDACANDBED [facility] Last Admin: 05/15/20 06:30 Dose: 1 gm Documented by: Thiamine HCl (Vitamin B-1) 100 mg PO DAILY [facility] Last Admin: 05/15/20 08:08 Dose: 100 mg Documented by: Discontinued Medications Hydrocodone Bitart/Acetaminophen (Brave 325-5 Mg) 1 tab PO Q6H PRN PRN Reason: Pain Sodium Chloride (Normal Saline) 1,000 mls @ 999 mls/hr IV .BOLUS ONE Stop: 05/12/20 06:07 Last Infusion: 05/12/20 11:50 Dose: 250 mls/hr Documented by: Sodium Chloride (Normal Saline) 1,000 mls @ 100 mls/hr IV ASDIRECTED [facility] Last Admin: 05/12/20 22:43 Dose: 100 mls/hr Documented by: Insulin Human Lispro (Humalog) 0 unit SUBCUT Q4H [facility]; Protocol Last Admin: 05/13/20 08:22 Dose: Not Given Documented by: Insulin Human Regular (Humulin R) 15 unit SUBCUT BIDAC [facility] Last Admin: 05/12/20 07:20 Dose: 15 units Documented by: Metoclopramide HCl (Reglan) 10 mg IVPUSH ONETIME ONE Stop: 05/12/20 08:59 Last Admin: 05/12/20 09:03 Dose: 10 mg Documented by: Metoprolol Succinate (Toprol Xl) 25 mg PO DAILY [facility] Last Admin: 05/13/20 10:21 Dose: Not Given Documented by: Naltrexone HCl (Naltrexone) 50 mg PO DAILY [facility] Last Admin: 05/13/20 09:32 Dose: 50 mg Documented by: Ondansetron HCl (Zofran) 4 mg IVPUSH ONETIME ONE Stop: 05/12/20 05:09 Last Admin: 05/12/20 08:10 Dose: 4 mg Documented by: Ondansetron HCl (Zofran Odt) 4 mg PO ONETIME ONE Stop: 05/12/20 06:47 Last Admin: 05/12/20 06:47 Dose: 4 mg Documented by: Ondansetron HCl (Zofran Odt) Confirm Administered Dose 4 mg .ROUTE .STK-MED ONE Stop: 05/12/20 06:46 Last Admin: 05/12/20 07:19 Dose: Not Given Documented by: Ondansetron HCl (Zofran) Confirm Administered Dose 4 mg .ROUTE .STK-MED ONE Stop: 05/12/20 08:07 Last Admin: 05/12/20 08:11 Dose: Not Given Documented by: Pantoprazole Sodium (Protonix) 40 mg PO BIDAC [facility] Last Admin: 05/12/20 17:15 Dose: 40 mg Documented by: - Exam General: Alert, Oriented Lungs: Clear to Auscultation, Rub Cardiovascular: Regular Rate, Regular Rhythm, No Murmurs GI/Abdominal Exam: Normal Bowel Sounds, Soft, Non-Tender, No Organomegaly, No Distention Sepsis Event Note - Evaluation Sepsis Screening Result: No Definite Risk - Focused Exam Vital Signs: Vital Signs Temp Pulse Resp BP Pulse Ox 05/15/20 06:00 98.4 F 89 20 174/99 H 96 05/15/20 02:00 97.1 F 86 18 158/89 H 98 05/14/20 22:00 97.9 F 101 H 20 163/94 H 100 - Problem List & Annotations (1) Alcohol withdrawal SNOMED Code(s): 401213118 Code(s): F10.239 - ALCOHOL DEPENDENCE WITH WITHDRAWAL, UNSPECIFIED Status: Acute Current Visit: Yes (2) Palliative care status SNOMED Code(s): 603039362 Code(s): Z51.5 - ENCOUNTER FOR PALLIATIVE CARE Status: Acute Current Visit: Yes (3) DKA (diabetic ketoacidoses) SNOMED Code(s): 051342235, 783523540 Code(s): E11.10 - TYPE 2 DIABETES MELLITUS WITH KETOACIDOSIS WITHOUT COMA Status: Acute Current Visit: Yes (4) Abdominal pain SNOMED Code(s): 71088400 Code(s): R10.9 - UNSPECIFIED ABDOMINAL PAIN Status: Acute Current Visit: No (5) Alcohol abuse with intoxication SNOMED Code(s): 25143970 Code(s): F10.129 - ALCOHOL ABUSE WITH INTOXICATION, UNSPECIFIED Status: Acute Current Visit: No (6) Anemia SNOMED Code(s): 937987511 Code(s): D64.9 - ANEMIA, UNSPECIFIED Status: Acute Current Visit: No (7) Dehydration SNOMED Code(s): 90633085 Code(s): E86.0 - DEHYDRATION Status: Acute Current Visit: No (8) MDD (major depressive disorder) SNOMED Code(s): 762242043 Code(s): F32.9 - MAJOR DEPRESSIVE DISORDER, SINGLE EPISODE, UNSPECIFIED Status: Acute Current Visit: No Qualifiers: Major depression recurrence: recurrent Active/Remission status: currently active (9) Anemia SNOMED Code(s): 158903544 Code(s): D64.9 - ANEMIA, UNSPECIFIED Status: Acute Current Visit: Yes (10) Thrombocytosis SNOMED Code(s): 3112776 Code(s): D47.3 - ESSENTIAL (HEMORRHAGIC) THROMBOCYTHEMIA Status: Acute Current Visit: Yes (11) Abdominal pain SNOMED Code(s): 06064905 Code(s): R10.9 - UNSPECIFIED ABDOMINAL PAIN Status: Acute Current Visit: Yes - Problem List Review Problem List Initiated/Reviewed/Updated: Yes - My Orders Last 24 Hours: My Active Orders 05/14/20 08:09 Acetaminophen/HYDROcodone [Brave 325-5 MG] 1 tab PO Q4H PRN 05/14/20 Lunch Regular Diet [DIET] 05/14/20 11:30 Sucralfate [Carafate] 1 gm PO QIDACANDBED - Plan Plan:: 1. Discharge to home. 2. Encouraged the patient to call her sponsor and then call the [facility]. She has a card. 3. Follow-up with Dr. Lemus in 1 week for diabetes and Dr. Quiroga for history of gastritis and GI bleed within the last year.
--- NOTE | 2020-05-15 08:52 | PCM.DCSUM1 ---
Discharge Summary - Hospital Course Free Text/Narrative:: Hospital course-patient was admitted overnight and started on IV insulin. Her blood sugars are rate down to normal levels. She was hydrated overload they did not get a good IV in the ER so little 100 mL an hour. She could drink and was even Zofran for nausea. Her hemoglobin was low and her platelets are high. It did not change infected when up a little bit as she was here. She states she had a history of bleeding ulcer and her guaiac was negative. Blood sugars remain stable urine output on diabetic diet and metformin twice a day. We waited to see if she withdrawn she never really went any shaking. Blood pressure did run low but high-level and she history of Ativan and of course a alcohol rally pack for vitamins. She little bit abdominal pain we watch that and her amylase was negative. That calmed down to most likely is due to her stomach. We'll discharge to home. She'll follow Dr. Quiroga in regards to her stomach. Her primary care provider in regards to alcohol and A1c of 8.0. She did have a [facility] consult. She does have a sponsor encourage her to see her sponsor in in follow-up with the [facility] for alcohol abuse. Brief History: This is a 64-year-old female patient with a long history of alcoholism. She came to the ER because of some abdominal pain and nausea. Her blood alcohol was 0.15. She states she's been drinking 1.75 L of vodka a day. She's been to treatment multiple times she thinks 4-5 and doesn't usually help her. She lives alone in apartment [facility]. She was found to have a blood sugar around 500. She has no history of diabetes. She says she has a dry mouth but denies polyphagia or polyuria. Stools are little bit loose she states but no blood. She denies fevers, chills, chest pain, shortness of breath. She says she started to withdraw she has not had any alcohol since last night. Diagnosis: Stroke: No - Discharge Data Discharge Date: 05/15/20 Discharge Disposition: Home, Self-Care 01 Condition: Fair - Referral to Home Health Primary Care Physician: Aden Lemus MD - Discharge Diagnosis/Problem(s) (1) Alcohol withdrawal SNOMED Code(s): 690958508 ICD Code: F10.239 - ALCOHOL DEPENDENCE WITH WITHDRAWAL, UNSPECIFIED Status: Acute Current Visit: Yes (2) Palliative care status SNOMED Code(s): 695122374 ICD Code: Z51.5 - ENCOUNTER FOR PALLIATIVE CARE Status: Acute Current Visit: Yes (3) DKA (diabetic ketoacidoses) SNOMED Code(s): 211435134, 054425025 ICD Code: E11.10 - TYPE 2 DIABETES MELLITUS WITH KETOACIDOSIS WITHOUT COMA Status: Acute Current Visit: Yes (4) Abdominal pain SNOMED Code(s): 02233624 ICD Code: R10.9 - UNSPECIFIED ABDOMINAL PAIN Status: Acute Current Visit: No (5) Alcohol abuse with intoxication SNOMED Code(s): 13605957 ICD Code: F10.129 - ALCOHOL ABUSE WITH INTOXICATION, UNSPECIFIED Status: Acute Current Visit: No (6) Anemia SNOMED Code(s): 674579855 ICD Code: D64.9 - ANEMIA, UNSPECIFIED Status: Acute Current Visit: No (7) Dehydration SNOMED Code(s): 00228931 ICD Code: E86.0 - DEHYDRATION Status: Acute Current Visit: No (8) MDD (major depressive disorder) SNOMED Code(s): 294056791 ICD Code: F32.9 - MAJOR DEPRESSIVE DISORDER, SINGLE EPISODE, UNSPECIFIED Status: Acute Current Visit: No Qualifiers: Major depression recurrence: recurrent Active/Remission status: currently active (9) Anemia SNOMED Code(s): 142627811 ICD Code: D64.9 - ANEMIA, UNSPECIFIED Status: Acute Current Visit: Yes (10) Thrombocytosis SNOMED Code(s): 0916073 ICD Code: D47.3 - ESSENTIAL (HEMORRHAGIC) THROMBOCYTHEMIA Status: Acute Current Visit: Yes (11) Abdominal pain SNOMED Code(s): 52726143 ICD Code: R10.9 - UNSPECIFIED ABDOMINAL PAIN Status: Acute Current Visit: Yes - Patient Summary/Data Consults: Consultations 05/12/20 15:15 Consult to Case Management/E Commerce Marketing Manager [CONS] Routine Comment: Physician Instructions: Service(s) to be Consulted: E Commerce Marketing Manager - Patient Instructions Diet: Diabetic Diet Activity: Apply Ice Driving: May Drive Today Showering/Bathing: May Shower Notify Provider of: Increased Pain Other/Special Instructions: 1. Recheck with Dr. Lemus in 1 week. 2[address] Point [address] Quiroga for checking gastritis and bleeding ulcer. 3. Dr. Lemus 2 coronary care for blood sugars - Discharge Plan Prescriptions/Med Rec: Sucralfate [Carafate] 1 gm PO QID #120 tablet metFORMIN [Glucophage XR] 500 mg PO BIDMEALS #60 tab.er Acetaminophen/HYDROcodone [[place] 325-5 MG] 1 tab PO Q4H PRN #15 tablet PRN Reason: Pain Home Medications: Home Meds Multivitamin [Multi-Vitamin Daily] 1 tab PO DAILY 10/09/13 [History] Aspirin 81 mg PO DAILY 07/26/18 [History] Spironolactone [Aldactone] 25 mg PO DAILY 03/17/19 [History] Folic Acid 1 mg PO DAILY 05/03/19 [History] Calcium Carb, Citrate/Vit D3 [Citracal + D ER] 1 tab PO DAILY 12/20/19 [History] Mirtazapine [Remeron] 30 mg PO BEDTIME #30 tablet 01/01/20 [Rx] Pantoprazole [ProTONIX] 40 mg PO BIDAC #30 tab.cr 01/01/20 [Rx] Thiamine [Vitamin B-1] 100 mg PO DAILY #30 tablet 01/01/20 [Rx] ondansetron HCL [Zofran] 4 mg PO .Q6H PRN #20 tablet 05/03/20 [Rx] PARoxetine [Paxil] 20 mg PO DAILY 05/13/20 [History] Acetaminophen/HYDROcodone [[place] 325-5 MG] 1 tab PO Q4H PRN #15 tablet 05/15/20 [Rx] PARoxetine [Paxil] 20 mg PO DAILY tablet 05/15/20 [Rx] Sucralfate [Carafate] 1 gm PO QID #120 tablet 05/15/20 [Rx] metFORMIN [Glucophage XR] 500 mg PO BIDMEALS #60 tab.er 05/15/20 [Rx] Patient Handouts: Metformin extended-release tablets, Diabetic Ketoacidosis, Blood Glucose Monitoring, Adult, Preventing Diabetic Ketoacidosis Forms: ED Department Discharge Referrals: Aden Lemus MD [Primary Care Provider] - - Discharge Summary/Plan Comment DC Time >30 min.: No - Patient Data Vitals - Most Recent: Last Vital Signs Temp 98.4 F 09/30/20 06:00 Pulse 89 05/15/20 06:00 Resp 20 05/15/20 06:00 BP 174/99 H 05/15/20 06:00 Pulse Ox 96 05/15/20 06:00 Weight - Most Recent: 106 lb 2 oz Lab Results - Last 24 hrs: Laboratory Results - last 24 hr 05/14/20 05/14/20 05/14/20 Range/Units 14:57 17:58 22:39 WBC (4.5-12.0) X10-3/uL RBC (3.23-5.20) x10(6)uL Hgb (11.5-15.5) g/dL Hct (30.0-51.3) % MCV (80-96) fL MCH (27.7-33.6) pg MCHC (32.2-35.4) g/dL RDW (11.5-15.5) % Plt Count (125-369) X10(3)uL MPV (7.4-10.4) fL Neut % (Auto) (46-82) % Lymph % (Auto) (13-37) % Yates % (Auto) (4-12) % Eos % (Auto) (1.0-5.0) % Baso % (Auto) (0-2) % Neut # (Auto) (1.6-8.3) # Lymph # (Auto) (0.6-5.0) # Yates # (Auto) (0.0-1.3) # Eos # (Auto) (0.0-0.8) # Baso # (Auto) (0.0-0.2) # POC Glucose 102 H 86 112 H (74-100) mg/dL 05/15/20 Range/Units 06:20 WBC 4.5 (4.5-12.0) X10-3/uL RBC 3.59 (3.23-5.20) x10(6)uL Hgb 8.9 L (11.5-15.5) g/dL Hct 28.9 L (30.0-51.3) % MCV 80.6 (80-96) fL MCH 24.7 L (27.7-33.6) pg MCHC 30.6 L (32.2-35.4) g/dL RDW 18.8 H (11.5-15.5) % Plt Count 597 H (125-369) X10(3)uL MPV 6.8 L (7.4-10.4) fL Neut % (Auto) 33.1 L (46-82) % Lymph % (Auto) 43.8 H (13-37) % Yates % (Auto) 13.8 H (4-12) % Eos % (Auto) 7 H (1.0-5.0) % Baso % (Auto) 2 (0-2) % Neut # (Auto) 1.5 L (1.6-8.3) # Lymph # (Auto) 2.0 (0.6-5.0) # Yates # (Auto) 0.6 (0.0-1.3) # Eos # (Auto) 0.3 (0.0-0.8) # Baso # (Auto) 0.1 (0.0-0.2) # POC Glucose (74-100) mg/dL MICHEL Results - Last 24 hrs: Microbiology 05/14/20 22:40 Stool Occult Blood (MICHEL) - Final Stool / Feces NEGATIVE OCCULT BLOOD REFERENCE RANGE: NEGATIVE Med Orders - Current: Current Medications Acetaminophen (Tylenol) 650 mg PO Q4H PRN PRN Reason: Pain Last Admin: 05/14/20 03:26 Dose: 650 mg Documented by: Hydrocodone Bitart/Acetaminophen ([place] 325-5 Mg) 1 tab PO Q4H PRN PRN Reason: Pain Last Admin: 05/15/20 06:22 Dose: 1 tab Documented by: Aspirin (Aspirin) 81 mg PO DAILY [facility] Last Admin: 05/15/20 08:07 Dose: 81 mg Documented by: Calcium Carbonate/Glycine (Oyster Shell Calcium) 500 mg PO DAILY [facility] Last Admin: 05/15/20 08:10 Dose: 500 mg Documented by: Enoxaparin Sodium (Lovenox) 40 mg SUBCUT Q24H [facility] Last Admin: 05/14/20 16:00 Dose: 40 mg Documented by: Folic Acid (Folic Acid) 1 mg PO DAILY [facility] Last Admin: 05/15/20 08:09 Dose: 1 mg Documented by: Lorazepam (Ativan) 1 mg IVPUSH Q6H PRN; Protocol PRN Reason: Withdrawal Symptoms Magnesium Oxide (Magnesium Oxide) 400 mg PO DAILY [facility] Last Admin: 05/15/20 08:08 Dose: 400 mg Documented by: Metformin HCl (Glucophage Xr) 500 mg PO BIDMEALS [facility] Last Admin: 05/15/20 08:08 Dose: 500 mg Documented by: Mirtazapine (Remeron) 30 mg PO BEDTIME [facility] Last Admin: 05/14/20 22:35 Dose: 30 mg Documented by: Multivitamins/Minerals/Vitamin C (Tab-A-Jocelin) 1 tab PO DAILY [facility] Last Admin: 05/15/20 08:08 Dose: 1 tab Documented by: Ondansetron HCl (Zofran Odt) 4 mg PO Q6H PRN PRN Reason: Nausea Last Admin: 05/12/20 17:15 Dose: 4 mg Documented by: Pantoprazole Sodium (Protonix) 40 mg PO BIDAC@0600,1730 [facility] Last Admin: 05/15/20 06:22 Dose: 40 mg Documented by: Paroxetine HCl (Paxil) 20 mg PO DAILY [facility] Last Admin: 05/15/20 08:07 Dose: 20 mg Documented by: Potassium Chloride (Klor-Con M20) 20 meq PO DAILY [facility] Last Admin: 05/15/20 08:09 Dose: 20 meq Documented by: Sodium Chloride (Saline Flush) 10 ml FLUSH ASDIRECTED PRN PRN Reason: saline flush Last Admin: 05/13/20 16:24 Dose: 10 ml Documented by: Spironolactone (Aldactone) 25 mg PO DAILY [facility] Last Admin: 05/15/20 08:09 Dose: 25 mg Documented by: Sucralfate (Carafate) 1 gm PO QIDACANDBED [facility] Last Admin: 05/15/20 06:30 Dose: 1 gm Documented by: Thiamine HCl (Vitamin B-1) 100 mg PO DAILY [facility] Last Admin: 05/15/20 08:08 Dose: 100 mg Documented by: Discontinued Medications Hydrocodone Bitart/Acetaminophen ([place] 325-5 Mg) 1 tab PO Q6H PRN PRN Reason: Pain Sodium Chloride (Normal Saline) 1,000 mls @ 999 mls/hr IV .BOLUS ONE Stop: 05/12/20 06:07 Last Infusion: 05/12/20 11:50 Dose: 250 mls/hr Documented by: Sodium Chloride (Normal Saline) 1,000 mls @ 100 mls/hr IV ASDIRECTED [facility] Last Admin: 05/12/20 22:43 Dose: 100 mls/hr Documented by: Insulin Human Lispro (Humalog) 0 unit SUBCUT Q4H [facility]; Protocol Last Admin: 05/13/20 08:22 Dose: Not Given Documented by: Insulin Human Regular (Humulin R) 15 unit SUBCUT BIDAC [facility] Last Admin: 05/12/20 07:20 Dose: 15 units Documented by: Metoclopramide HCl (Reglan) 10 mg IVPUSH ONETIME ONE Stop: 05/12/20 08:59 Last Admin: 05/12/20 09:03 Dose: 10 mg Documented by: Metoprolol Succinate (Toprol Xl) 25 mg PO DAILY [facility] Last Admin: 05/13/20 10:21 Dose: Not Given Documented by: Naltrexone HCl (Naltrexone) 50 mg PO DAILY [facility] Last Admin: 05/13/20 09:32 Dose: 50 mg Documented by: Ondansetron HCl (Zofran) 4 mg IVPUSH ONETIME ONE Stop: 05/12/20 05:09 Last Admin: 05/12/20 08:10 Dose: 4 mg Documented by: Ondansetron HCl (Zofran Odt) 4 mg PO ONETIME ONE Stop: 05/12/20 06:47 Last Admin: 05/12/20 06:47 Dose: 4 mg Documented by: Ondansetron HCl (Zofran Odt) Confirm Administered Dose 4 mg .ROUTE .STK-MED ONE Stop: 05/12/20 06:46 Last Admin: 05/12/20 07:19 Dose: Not Given Documented by: Ondansetron HCl (Zofran) Confirm Administered Dose 4 mg .ROUTE .STK-MED ONE Stop: 05/12/20 08:07 Last Admin: 05/12/20 08:11 Dose: Not Given Documented by: Pantoprazole Sodium (Protonix) 40 mg PO BIDAC [facility] Last Admin: 05/12/20 17:15 Dose: 40 mg Documented by:
[2020-05-15 09:11] LABS: CREATININE, URINE 64.4 mg/dL (Not Estab.)
[2020-05-15 10:53] VITALS: BP 157/89; PULSE 92
== END 2020-05-15 10:10 | disposition home or self-care (01) | DRG 896 ==
LOC: FB.ED 04:48 → FB.MS 13:52
PROVIDERS: ADMIT Family Medicine; ATTEND Family Medicine
PROC: 02HV33Z Insertion of Infusion Device into Superior Vena Cava, Percutaneous Approach (ICD-10-PCS; principal; 2020-05-12)
DX: F10.239 Alcohol dependence with withdrawal, unspecified (principal); F10.229 Alcohol dependence with intoxication, unspecified; Y90.9 Presence of alcohol in blood, level not specified; E11.10 Type 2 diabetes mellitus with ketoacidosis without coma; F33.0 Major depressive disorder, recurrent, mild; Z51.5 Encounter for palliative care; F10.129 Alcohol abuse with intoxication, unspecified; Z87.11 Personal history of peptic ulcer disease; D64.9 Anemia, unspecified; Z66 Do not resuscitate; E86.0 Dehydration; R26.0 Ataxic gait; D47.3 Essential (hemorrhagic) thrombocythemia; H54.7 Unspecified visual loss; I10 Essential (primary) hypertension; K21.9 Gastro-esophageal reflux disease without esophagitis; R32 Unspecified urinary incontinence; M19.90 Unspecified osteoarthritis, unspecified site; M81.0 Age-related osteoporosis without current pathological fracture; R27.0 Ataxia, unspecified; F41.9 Anxiety disorder, unspecified; D69.6 Thrombocytopenia, unspecified; Z79.82 Long term (current) use of aspirin; Z79.899 Other long term (current) drug therapy; Z79.84 Long term (current) use of oral hypoglycemic drugs; Z88.2 Allergy status to sulfonamides; Z87.01 Personal history of pneumonia (recurrent); Y90.5 Blood alcohol level of 100-119 mg/100 ml
CPT/HCPCS: 36410; 36415; 74019; 80048; 80053; 80061; 80307; 82043; 82150; 82272; 82570; 82962; 83036; 83690; 84132; 85025; 85610; 85730; 96361; 96374; 96375; 99285-25; A9270-GY; J1650; J1815; J1815-GY; J2405; J2765; J7030

== ENCOUNTER 2020-06-16 19:25 | Observation (INO) | payer MEDICARE ==
[2020-06-16] MEDS ORDERED: ATROPINE PO STA (20:02)
[2020-06-16] MEDS ORDERED: DIPHENOXYLATE PO STA (20:02)
[2020-06-16] MEDS ORDERED: Lactated Ringers 1,000 ML IV ONE (20:02)
[2020-06-16] MEDS: Ondansetron 4 MG/2 ML SDV IVPUSH ONE ×2 (20:15→20:41)
[2020-06-16] MEDS ORDERED: Ondansetron 4 MG/2 ML SDV IVPUSH ONE (20:18)
--- NOTE | 2020-06-16 20:40 | EDM.PDOC ---
ED HPI GENERAL MEDICAL PROBLEM - General Chief Complaint: Gastrointestinal Problem Stated Complaint: VOMITTING Time Seen by Provider: 06/16/20 20:15 Source of Information: Reports: Patient, Old Records, RN History Limitations: Reports: No Limitations - History of Present Illness INITIAL COMMENTS - FREE TEXT/NARRATIVE: 64 yo female presents via EMS with nausea, vomiting, diarrhea and abdominal cramping for the past approx 36 hrs. No fever. No blood in her emesis or stool. Lives alone. Has a pHx of ETOH abuse, denies recent ETOH use. Feel very weak. Onset: Gradual Onset Date: 06/15/20 Duration: Day(s): (1.5) Location: Reports: Abdomen Quality: Reports: Other (crampy) Severity: Severe Improves with: Reports: None Worsens with: Reports: Other (unsure) Context: Reports: Other (See HPI) Associated Symptoms: Reports: Malaise, Nausea/Vomiting. Denies: Cough, Fever/Chills, Rash, Shortness of Breath Treatments DISPENSARY ATTENDANT: Reports: Other (see below) (none) Abdomen Pain Score (Numeric/FACES): 4 - Related Data Allergies Allergy/AdvReac Type Severity Reaction Status Date / Time Sulfa (Sulfonamide Allergy Rash Verified 05/12/20 14:18 Antibiotics) Home Meds: Home Meds Multivitamin [Multi-Vitamin Daily] 1 tab PO DAILY 10/09/13 [History] Aspirin 81 mg PO DAILY 07/26/18 [History] Spironolactone [Aldactone] 25 mg PO DAILY 03/17/19 [History] Folic Acid 1 mg PO DAILY 05/03/19 [History] Calcium Carb, Citrate/Vit D3 [Citracal + D ER] 1 tab PO DAILY 12/20/19 [History] Mirtazapine [Remeron] 30 mg PO BEDTIME #30 tablet 01/01/20 [Rx] Pantoprazole [ProTONIX] 40 mg PO BIDAC #30 tab.cr 01/01/20 [Rx] Thiamine [Vitamin B-1] 100 mg PO DAILY #30 tablet 01/01/20 [Rx] ondansetron HCL [Zofran] 4 mg PO .Q6H PRN #20 tablet 05/03/20 [Rx] PARoxetine [Paxil] 20 mg PO DAILY 05/13/20 [History] Acetaminophen/HYDROcodone [[place] 325-5 MG] 1 tab PO Q4H PRN #15 tablet 05/15/20 [Rx] PARoxetine [Paxil] 20 mg PO DAILY tablet 05/15/20 [Rx] Sucralfate [Carafate] 1 gm PO QID #120 tablet 05/15/20 [Rx] metFORMIN [Glucophage XR] 500 mg PO BIDMEALS #60 tab.er 05/15/20 [Rx] Past Medical History HEENT History: Reports: Cataract, Impaired Vision Cardiovascular History: Reports: Hypertension, Other (See Below) Other Cardiovascular History: States has irregular HR at times. Respiratory History: Reports: Bronchitis, Recurrent, Pneumonia, Recurrent, Other (See Below) Other Respiratory History: Tobacco use. Gastrointestinal History: Reports: GERD, Pancreatitis, PUD Other Gastrointestinal History: "Prolapsed colon". Genitourinary History: Reports: Urinary Incontinence DIRECTOR CLINICAL APPLICATIONS History: Reports: Other DIRECTOR CLINICAL APPLICATIONS History: G0 Musculoskeletal History: Reports: Arthritis, Osteoporosis, Other (See Below) Other Musculoskeletal History: Movement disorder. Ataxia. Neurological History: Reports: Other (See Below) Other Neuro History: Episodes of DT's. Movement disorder. Psychiatric History: Reports: Addiction, Anxiety, Depression, Hallucinations, Other (See Below) Other Psychiatric History: Drug and alcohol addiction. Endocrine/Metabolic History: Reports: Osteoporosis Hematologic History: Reports: Anemia, Blood Transfusion(s), Other (See Below) Other Hematologic History: Leukopenia, thrombocytopenia. Immunologic History: Reports: None Oncologic (Cancer) History: Reports: None Dermatologic History: Reports: None - Infectious Disease History Infectious Disease History: Reports: Chicken Pox, Measles, Mumps - Past Surgical History Head Surgeries/Procedures: Reports: None GI Surgical History: Reports: Colonoscopy, EGD, Other (See Below) Other GI Surgeries/Procedures: History of feeding tube. Neurological Surgical History: Reports: None Musculoskeletal Surgical History: Reports: Other (See Below) Other Musculoskeletal Surgeries/Procedures:: Toe surgery. Social & Family History - Family History Family Medical History: Noncontributory - Caffeine Use Caffeine Use: Reports: Coffee Other Caffeine Use: 2-3 CUPS DAILY - Living Situation & Occupation Living situation: Reports: Alone Occupation: Disabled ED ROS GENERAL - Review of Systems Review Of Systems: See Below Constitutional: Reports: No Symptoms HEENT: Reports: No Symptoms Respiratory: Reports: No Symptoms Cardiovascular: Reports: Lightheadedness Endocrine: Reports: No Symptoms GI/Abdominal: Reports: Diarrhea, Nausea, Vomiting. Denies: Black Stool, Bloody Stool, Distension, Hematemesis, Hematochezia, Melena : Reports: No Symptoms Musculoskeletal: Reports: No Symptoms Skin: Reports: No Symptoms Neurological: Reports: No Symptoms ED EXAM, GI/ABD - Physical Exam Exam: See Below Exam Limited By: No Limitations General Appearance: Alert, WD/WN, No Apparent Distress Eyes: Bilateral: Normal Appearance Ears: Normal External Exam, Normal Canal, Hearing Grossly Normal Nose: Normal Inspection, No Blood Throat/Mouth: Normal Lips, Normal Oropharynx, Normal Voice, No Airway Compromise Head: Atraumatic, Normocephalic Neck: Normal Inspection Respiratory/Chest: No Respiratory Distress, Lungs Clear, Normal Breath Sounds, No Accessory Muscle Use Cardiovascular: Regular Rate, Rhythm, No Edema GI/Abdominal Exam: Normal Bowel Sounds, Soft, No Distention, Tender (mild, diffuse). No: Non-Tender, Distended, Guarding, Rigid, Rebound Back Exam: Normal Inspection. No: CVA Tenderness (R), CVA Tenderness (L) Extremities: Normal Inspection, Normal Range of Motion, Non-Tender, No Pedal Edema Neurological: Alert, Oriented, CN II-XII Intact, Normal Cognition, No Motor/Sensory Deficits Psychiatric: Normal Affect, Normal Mood Skin Exam: Warm, Dry, Intact, Normal Color, No Rash. No: Diaphoretic, Ecchymosis, Erythema, Increased Warmth, Lymphangitis, Wound/Incision Course - Vital Signs Last Recorded V/S: Last Vital Signs Temp 36.4 C 06/16/20 20:03 Pulse 102 H 06/16/20 20:03 Resp 18 06/16/20 20:03 BP 154/84 H 06/16/20 20:03 Pulse Ox 98 06/16/20 20:03 - Orders/Labs/Meds Orders: Active Orders 24 hr Category Date Time Status Lactated Ringers [Ringers, Lactated] 1,000 ml Med 06/16/20 22:00 Active IV ASDIRECTED Medication Orders Lactated Ringer's (Ringers, Lactated) 1,000 mls @ 150 mls/hr IV ASDIRECTED ROMEL Last Admin: 06/16/20 22:01 Dose: 150 mls/hr Documented by: RENALDO Labs: Laboratory Tests 06/16/20 06/16/20 06/16/20 Range/Units 20:30 20:30 20:55 WBC 5.8 (4.5-12.0) X10-3/uL RBC 3.67 (3.23-5.20) x10(6)uL Hgb 8.8 L (11.5-15.5) g/dL Hct 27.8 L (30.0-51.3) % MCV 75.7 L (80-96) fL MCH 23.8 L (27.7-33.6) pg MCHC 31.5 L (32.2-35.4) g/dL RDW 19.8 H (11.5-15.5) % Plt Count 216 (125-369) X10(3)uL Sodium 137 (135-145) mmol/L Potassium 4.1 (3.5-5.3) mmol/L Chloride 97 L D (100-110) mmol/L Carbon Dioxide 25 (21-32) mmol/L BUN 11 (7-18) mg/dL Creatinine 0.5 L (0.55-1.02) mg/dL Est Cr Clr Drug Dosing 76.31 mL/min Estimated GFR (MDRD) > 60 (>60) BUN/Creatinine Ratio 22.0 H (9-20) Glucose 106 (80-116) mg/dL Calcium 8.7 (8.6-10.2) mg/dL Urine Color (YELLOW) Urine Appearance (CLEAR) Urine pH (5.0-6.5) Ur Specific [place] (1.010-1.025) Urine Protein (NEGATIVE) mg/dL Urine Glucose (UA) (NORMAL) mg/dL Urine Ketones (NEGATIVE) mg/dL Urine Occult Blood (NEGATIVE) Urine Nitrite (NEGATIVE) Urine Bilirubin (NEGATIVE) Urine Urobilinogen (NEGATIVE) mg/dL Ur Leukocyte Esterase (NEGATIVE) Urine RBC (0-5) Urine WBC (0-5) Ur Squamous Epith Cells (NS,R,O) Calcium Oxalate Crystal (NS) Urine Bacteria (NS) SARS-CoV-2 RNA (DAMON) Negative (NEGATIVE) 06/16/20 Range/Units 21:30 WBC (4.5-12.0) X10-3/uL RBC (3.23-5.20) x10(6)uL Hgb (11.5-15.5) g/dL Hct (30.0-51.3) % MCV (80-96) fL MCH (27.7-33.6) pg MCHC (32.2-35.4) g/dL RDW (11.5-15.5) % Plt Count (125-369) X10(3)uL Sodium (135-145) mmol/L Potassium (3.5-5.3) mmol/L Chloride (100-110) mmol/L Carbon Dioxide (21-32) mmol/L BUN (7-18) mg/dL Creatinine (0.55-1.02) mg/dL Est Cr Clr Drug Dosing mL/min Estimated GFR (MDRD) (>60) BUN/Creatinine Ratio (9-20) Glucose (80-116) mg/dL Calcium (8.6-10.2) mg/dL Urine Color Yellow (YELLOW) Urine Appearance Slightly cloudy (CLEAR) Urine pH 8.0 H (5.0-6.5) Ur Specific [place] 1.015 (1.010-1.025) Urine Protein Negative (NEGATIVE) mg/dL Urine Glucose (UA) Normal (NORMAL) mg/dL Urine Ketones 15 H (NEGATIVE) mg/dL Urine Occult Blood Negative (NEGATIVE) Urine Nitrite Negative (NEGATIVE) Urine Bilirubin Negative (NEGATIVE) Urine Urobilinogen Normal (NEGATIVE) mg/dL Ur Leukocyte Esterase Negative (NEGATIVE) Urine RBC 0-5 (0-5) Urine WBC 0-5 (0-5) Ur Squamous Epith Cells Few H (NS,R,O) Calcium Oxalate Crystal Moderate H (NS) Urine Bacteria Few H (NS) SARS-CoV-2 RNA (DAMON) (NEGATIVE) Meds: Medications Generic Name Dose Route Start Last Admin Trade Name Freq PRN Reason Stop Dose Admin Lactated Ringer's 1,000 mls @ 150 mls/hr 06/16/20 22:00 06/16/20 22:01 Ringers, Lactated IV 150 mls/hr ASDIRECTED ROMEL Administration Discontinued Medications Generic Name Dose Route Start Last Admin Trade Name Freq PRN Reason Stop Dose Admin Acetaminophen 650 mg 06/16/20 21:14 Tylenol PO 06/16/20 21:15 NOW ONE Diphenoxylate HCl/Atropine 10 ml 11/01/20 20:02 Lomotil PO 06/16/20 20:03 NOW STA Diphenoxylate HCl/Atropine 2 tab 06/16/20 20:45 Lomotil 0.025-2.5 Mg PO 06/16/20 20:46 ONETIME ONE Lactated Ringer's 1,000 mls @ 1,000 mls/hr 06/16/20 20:02 06/16/20 20:15 Ringers, Lactated IV 06/16/20 21:01 1,000 mls/hr BOLUS ONE Administration Ondansetron HCl 4 mg 06/16/20 20:02 06/16/20 20:41 Zofran IVPUSH 06/16/20 20:03 4 mg ONETIME ONE Administration Ondansetron HCl 4 mg 06/16/20 20:18 Zofran IVPUSH 06/16/20 20:19 ONETIME ONE Departure - Departure Time of Disposition: 22:25 Disposition: Refer to Observation Condition: Fair Clinical Impression: Nausea vomiting and diarrhea, Microcytic anemia - Discharge Information *PRESCRIPTION DRUG MONITORING PROGRAM REVIEWED*: Not Applicable *COPY OF PRESCRIPTION DRUG MONITORING REPORT IN PATIENT KISHAN: Not Applicable Referrals: Aden Lemus MD [Primary Care Provider] - Forms: ED Department Discharge Sepsis Event Note (ED) - Evaluation Sepsis Screening Result: No Definite Risk - Focused Exam Vital Signs: Vital Signs Temp Pulse Resp BP Pulse Ox 06/16/20 20:03 36.4 C 102 H 18 154/84 H 98 - My Orders Last 24 Hours: My Active Orders 06/16/20 22:00 Lactated Ringers [Ringers, Lactated] 1,000 ml IV ASDIRECTED - Assessment/Plan Last 24 Hours: My Active Orders 06/16/20 22:00 Lactated Ringers [Ringers, Lactated] 1,000 ml IV ASDIRECTED
[2020-06-16] MEDS ORDERED: Atropine/Diphenoxylate 0.025-2.5 MG Tab PO ONE (20:45)
[2020-06-16] MEDS ORDERED: Acetaminophen 325 MG Tab PO ONE (21:14)
[2020-06-16] MEDS: Lactated Ringers 1,000 ML IV SCH (22:01)
[2020-06-16] MEDS ORDERED: Atropine/Diphenoxylate 0.025-2.5 MG Tab PO PRN (22:15)
[2020-06-16] MEDS ORDERED: Ondansetron 4 MG Tab.DIS PO PRN (22:36)
[2020-06-17] MEDS: Lactated Ringers 1,000 ML IV SCH ×3 (04:16→19:45)
[2020-06-17] MEDS ORDERED: Sucralfate 1 GM Tab PO SCH (07:30)
[2020-06-17] MEDS ORDERED: Ondansetron 4 MG Tab.DIS PO PRN (08:43)
--- NOTE | 2020-06-17 08:51 | PCM.HP.2 ---
H&P History of Present Illness - General Date of Service: 06/17/20 Admit Problem/Dx: Admission Diagnosis/Problem Admission Diagnosis/Problem Nausea, vomiting, and diarrhea Source of Information: Patient History Limitations: Reports: No Limitations - History of Present Illness Initial Comments - Free Text/Narative: This is a 64-year-old female patient has a three-day history of vomiting and diarrhea. Not able to keep anything down. She has a history of alcoholism. She says she has not drank in over 10 days. She says the pain is epigastric. She's had pancreatitis in the past. She also gastric ulcer that was bleeding and was postictal followed up on and she states it never was. She does not vomit any blood. She denies any blood in her stool. The pain is epigastric and it does not radiate. No history of cholecystectomy or appendectomy. Denies fevers, chills. Abdomen Pain Score (Numeric/FACES): 5 - Related Data Allergies/Adverse Reactions: Allergies Allergy/AdvReac Type Severity Reaction Status Date / Time Sulfa (Sulfonamide Allergy Rash Verified 05/12/20 14:18 Antibiotics) Home Medications: Home Meds Multivitamin [Multi-Vitamin Daily] 1 tab PO DAILY 10/09/13 [History] Aspirin 81 mg PO DAILY 07/26/18 [History] Spironolactone [Aldactone] 25 mg PO DAILY 03/17/19 [History] Folic Acid 1 mg PO DAILY 05/03/19 [History] Calcium Carb, Citrate/Vit D3 [Citracal + D ER] 1 tab PO BID 12/20/19 [History] Mirtazapine [Remeron] 30 mg PO BEDTIME #30 tablet 01/01/20 [Rx] Thiamine [Vitamin B-1] 100 mg PO DAILY #30 tablet 01/01/20 [Rx] PARoxetine [Paxil] 20 mg PO DAILY 05/13/20 [History] metFORMIN [Glucophage XR] 500 mg PO BIDMEALS #60 tab.er 05/15/20 [Rx] Acamprosate [Campral] 333 mg PO BID 06/17/20 [History] Ondansetron [Zofran ODT] 4 mg PO Q6H PRN 06/17/20 [History] Pantoprazole Sodium [Protonix] 40 mg PO DAILY 06/17/20 [History] Potassium Chloride 10 meq PO DAILY 06/17/20 [History] glipiZIDE [Glucotrol] 2.5 mg PO DAILY 06/17/20 [History] Past Medical History HEENT History: Reports: Cataract, Impaired Vision Cardiovascular History: Reports: Hypertension, Other (See Below) Other Cardiovascular History: States has irregular HR at times. Respiratory History: Reports: Bronchitis, Recurrent, Pneumonia, Recurrent, Other (See Below) Other Respiratory History: Tobacco use. Gastrointestinal History: Reports: GERD, Pancreatitis, PUD Other Gastrointestinal History: "Prolapsed colon". Genitourinary History: Reports: Urinary Incontinence MANAGER CORE History: Reports: Other OB/BYN History: G0 Musculoskeletal History: Reports: Arthritis, Osteoporosis, Other (See Below) Other Musculoskeletal History: Movement disorder. Ataxia. Neurological History: Reports: Other (See Below) Other Neuro History: Episodes of DT's. Movement disorder. Psychiatric History: Reports: Addiction, Anxiety, Depression, Hallucinations, Other (See Below) Other Psychiatric History: Drug and alcohol addiction. Endocrine/Metabolic History: Reports: Osteoporosis Hematologic History: Reports: Anemia, Blood Transfusion(s), Other (See Below) Other Hematologic History: Leukopenia, thrombocytopenia. Immunologic History: Reports: None Oncologic (Cancer) History: Reports: None Dermatologic History: Reports: None - Infectious Disease History Infectious Disease History: Reports: Chicken Pox, Measles, Mumps - Past Surgical History Head Surgeries/Procedures: Reports: None GI Surgical History: Reports: Colonoscopy, EGD, Other (See Below) Other GI Surgeries/Procedures: History of feeding tube. Neurological Surgical History: Reports: None Musculoskeletal Surgical History: Reports: Other (See Below) Other Musculoskeletal Surgeries/Procedures:: Toe surgery. Social & Family History - Family History Family Medical History: Noncontributory - Tobacco Use Tobacco Use Status *Q: Current Every Day Tobacco User Years of Tobacco use: 30 Packs/Tins Daily: 0.5 Used Tobacco, but Quit: No Second Hand Smoke Exposure: Yes - Caffeine Use Caffeine Use: Reports: Coffee Other Caffeine Use: 2-3 CUPS DAILY - Alcohol Use Number of Drinks Per Day: 5 Date of Last Drink: 06/08/20 - Recreational Drug Use Recreational Drug Use: No - Living Situation & Occupation Living situation: Reports: Alone Occupation: Disabled H&P Review of Systems - Review of Systems: Review Of Systems: See Below General: Reports: No Symptoms HEENT: Reports: No Symptoms Pulmonary: Reports: No Symptoms Cardiovascular: Reports: No Symptoms Gastrointestinal: Reports: Abdominal Pain ( that it's really important things like segment is stomach medicine rate), Nausea, Vomiting. Denies: Black Stool, Bloody Stool, Hematochezia, Melena Genitourinary: Reports: No Symptoms Musculoskeletal: Reports: No Symptoms Skin: Reports: No Symptoms Psychiatric: Reports: No Symptoms Neurological: Reports: No Symptoms Hematologic/Lymphatic: Reports: No Symptoms Immunologic: Reports: No Symptoms (MAGDALENO) Exam - Exam Exam: See Below - Vital Signs Vital Signs: Last Vital Signs Temp 98.1 F 06/17/20 04:00 Pulse 86 06/17/20 04:00 Resp 16 06/17/20 04:00 BP 150/91 H 06/17/20 04:00 Pulse Ox 96 06/17/20 04:00 Weight: 106 lb 2 oz - Exam General: Alert, Oriented, Cooperative HEENT: Hearing Intact, Mucosa Moist & [place], Posterior Pharynx Clear (This is a little bit of vertigo) Neck: Supple, Trachea Midline Lungs: Clear to Auscultation, Normal Respiratory Effort Cardiovascular: Regular Rate (thank you), Regular Rhythm. No: Tachycardia, Systolic Murmur GI/Abdominal Exam: Normal Bowel Sounds, No Organomegaly, No Distention, No Mass, Tender (Epigastrium) Back Exam: Normal Inspection, Full Range of Motion Extremities: Normal Inspection, Non-Tender, No Pedal Edema Neuro Extensive - Mental Status: Alert, Oriented x3, Normal Mood/Affect, Normal Cognition, Memory Intact Psychiatric: Anxious, Depressed. No: Suicidal Ideation - Patient Data Lab Results Last 24 hrs: Laboratory Results - last 24 hr 06/16/20 06/16/20 06/16/20 Range/Units 20:30 20:30 20:55 WBC 5.8 (4.5-12.0) X10-3/uL RBC 3.67 (3.23-5.20) x10(6)uL Hgb 8.8 L (11.5-15.5) g/dL Hct 27.8 L (30.0-51.3) % MCV 75.7 L (80-96) fL MCH 23.8 L (27.7-33.6) pg MCHC 31.5 L (32.2-35.4) g/dL RDW 19.8 H (11.5-15.5) % Plt Count 216 (125-369) X10(3)uL Sodium 137 (135-145) mmol/L Potassium 4.1 (3.5-5.3) mmol/L Chloride 97 L D (100-110) mmol/L Carbon Dioxide 25 (21-32) mmol/L BUN 11 (7-18) mg/dL Creatinine 0.5 L (0.55-1.02) mg/dL Est Cr Clr Drug Dosing 76.31 mL/min Estimated GFR (MDRD) > 60 (>60) BUN/Creatinine Ratio 22.0 H (9-20) Glucose 106 (80-116) mg/dL Calcium 8.7 (8.6-10.2) mg/dL Urine Color (YELLOW) Urine Appearance (CLEAR) Urine pH (5.0-6.5) Ur Specific [place] (1.010-1.025) Urine Protein (NEGATIVE) mg/dL Urine Glucose (UA) (NORMAL) mg/dL Urine Ketones (NEGATIVE) mg/dL Urine Occult Blood (NEGATIVE) Urine Nitrite (NEGATIVE) Urine Bilirubin (NEGATIVE) Urine Urobilinogen (NEGATIVE) mg/dL Ur Leukocyte Esterase (NEGATIVE) Urine RBC (0-5) Urine WBC (0-5) Ur Squamous Epith Cells (NS,R,O) Calcium Oxalate Crystal (NS) Urine Bacteria (NS) SARS-CoV-2 RNA (DAMON) Negative (NEGATIVE) 06/16/20 Range/Units 21:30 WBC (4.5-12.0) X10-3/uL RBC (3.23-5.20) x10(6)uL Hgb (11.5-15.5) g/dL Hct (30.0-51.3) % MCV (80-96) fL MCH (27.7-33.6) pg MCHC (32.2-35.4) g/dL RDW (11.5-15.5) % Plt Count (125-369) X10(3)uL Sodium (135-145) mmol/L Potassium (3.5-5.3) mmol/L Chloride (100-110) mmol/L Carbon Dioxide (21-32) mmol/L BUN (7-18) mg/dL Creatinine (0.55-1.02) mg/dL Est Cr Clr Drug Dosing mL/min Estimated GFR (MDRD) (>60) BUN/Creatinine Ratio (9-20) Glucose (80-116) mg/dL Calcium (8.6-10.2) mg/dL Urine Color Yellow (YELLOW) Urine Appearance Slightly cloudy (CLEAR) Urine pH 8.0 H (5.0-6.5) Ur Specific [place] 1.015 (1.010-1.025) Urine Protein Negative (NEGATIVE) mg/dL Urine Glucose (UA) Normal (NORMAL) mg/dL Urine Ketones 15 H (NEGATIVE) mg/dL Urine Occult Blood Negative (NEGATIVE) Urine Nitrite Negative (NEGATIVE) Urine Bilirubin Negative (NEGATIVE) Urine Urobilinogen Normal (NEGATIVE) mg/dL Ur Leukocyte Esterase Negative (NEGATIVE) Urine RBC 0-5 (0-5) Urine WBC 0-5 (0-5) Ur Squamous Epith Cells Few H (NS,R,O) Calcium Oxalate Crystal Moderate H (NS) Urine Bacteria Few H (NS) SARS-CoV-2 RNA (DAMON) (NEGATIVE) Result Diagrams: 06/16/20 20:30 06/16/20 20:30 Sepsis Event Note - Evaluation Sepsis Screening Result: No Definite Risk - Focused Exam Vital Signs: Vital Signs Temp Pulse Resp BP BP Pulse Ox 06/17/20 04:00 98.1 F 86 16 150/91 H 96 06/16/20 22:45 98.2 F 101 H 18 154/89 H 97 06/16/20 22:18 98.1 F 103 H 18 157/83 H 99 06/16/20 20:55 98.0 F 105 H 18 154/80 H 100 - Problem List (1) Palliative care status SNOMED Code(s): 339951559 ICD Code: Z51.5 - ENCOUNTER FOR PALLIATIVE CARE Status: Acute Current Visit: Yes (2) Nausea vomiting and diarrhea SNOMED Code(s): 7242031 ICD Code: R11.2 - NAUSEA WITH VOMITING, UNSPECIFIED; R19.7 - DIARRHEA, UNSPECIFIED Status: Acute Current Visit: Yes (3) Abdominal pain SNOMED Code(s): 51823629 ICD Code: R10.9 - UNSPECIFIED ABDOMINAL PAIN Status: Acute Current Visit: No (4) Anemia SNOMED Code(s): 445554507 ICD Code: D64.9 - ANEMIA, UNSPECIFIED Status: Acute Current Visit: No (5) Depression SNOMED Code(s): 57822976 ICD Code: F32.9 - MAJOR DEPRESSIVE DISORDER, SINGLE EPISODE, UNSPECIFIED Status: Chronic Current Visit: No (6) History of alcohol abuse SNOMED Code(s): 570080784 ICD Code: F10.11 - ALCOHOL ABUSE, IN REMISSION Status: Acute Current Visit: Yes Problem List Initiated/Reviewed/Updated: Yes Orders Last 24hrs: Active Orders 24 hr Category Date Time Status Admission Status [Patient Status] [ADT] Routine ADT 06/16/20 22:08 Active Patient Status [ADT] Routine ADT 06/16/20 22:11 Active Height and Weight [RC] 06 Care 06/16/20 22:11 Active Intake and Output [RC] 06,14, Care 06/16/20 22:12 Active Oxygen Therapy [RC] PRN Care 06/16/20 22:11 Active Up With Assistance [RC] ASDIRECTED Care 06/16/20 22:11 Active VTE/DVT Education [RC] Per Unit Routine Care 06/16/20 22:11 Active Vital Signs [RC] 08,12,16,20,00,04 Care 06/16/20 22:11 Active Clear Liquid Diet [DIET] Diet 06/17/20 Breakfast Active AMYLASE [CHEM] Routine Lab 06/17/20 08:45 Ordered CBC WITH AUTO DIFF [HEME] Routine Lab 06/17/20 08:44 Ordered Hemoccult [OCCULT BLOOD DIAGNOSTIC] [OP] Stat Lab 06/16/20 22:16 Ordered LIPASE [CHEM] Routine Lab 06/17/20 08:44 Ordered Acamprosate [Campral] Med 06/17/20 09:00 Ordered 333 mg PO BID Atropine/Diphenoxylate [Lomotil 0.025-2.5 MG] Med 06/16/20 22:15 Active 1 tab PO QID PRN Calcium Carb, Citrate/Vit D3 [Citracal + D ER] Med 06/17/20 09:00 Ordered 1 tab PO BID Folic Acid Med 06/17/20 09:00 Ordered 1 mg PO DAILY Lactated Ringers [Ringers, Lactated] 1,000 ml Med 06/16/20 22:00 Active IV ASDIRECTED Mirtazapine [Remeron] Med 06/17/20 21:00 Active 30 mg PO BEDTIME Multivitamins [Tab-A-Jocelin] Med 06/17/20 09:00 Ordered 1 tab PO DAILY Ondansetron [Zofran ODT] Med 06/16/20 22:36 Active 4 mg PO Q6H PRN Ondansetron [Zofran ODT] Med 06/17/20 08:43 Ordered 4 mg PO Q6H PRN PARoxetine [Paxil] Med 06/17/20 09:00 Ordered 20 mg PO DAILY Pantoprazole [ProTONIX] Med 06/17/20 09:00 Ordered 40 mg PO DAILY Potassium Chloride [Potassium Chloride] Med 06/17/20 09:00 Ordered 10 meq PO DAILY Spironolactone [Aldactone] Med 06/17/20 09:00 Ordered 25 mg PO DAILY Sucralfate [Carafate] Med 06/17/20 07:30 Active 1 gm PO QIDACANDBED Thiamine [Vitamin B-1] Med 06/17/20 09:00 Ordered 100 mg PO DAILY Zinc Oxide Med 06/17/20 09:00 Active 15 gm TOP QID glipiZIDE [Glucotrol] Med 06/17/20 09:00 Ordered 2.5 mg PO DAILY metFORMIN [Glucophage XR] Med 06/17/20 18:00 Ordered 500 mg PO BIDMEALS Antiembolic Hose [OM.PC] Per Unit Routine Oth 06/16/20 22:12 Ordered Resuscitation Status Routine Resus Stat 06/16/20 22:11 Ordered Medication Orders Diphenoxylate HCl/Atropine (Lomotil 0.025-2.5 Mg) 1 tab PO QID PRN PRN Reason: Diarrhea Folic Acid (Folic Acid) 1 mg PO DAILY ROMEL Glipizide (Glucotrol) 2.5 mg PO DAILY ROMEL Lactated Ringer's (Ringers, Lactated) 1,000 mls @ 150 mls/hr IV ASDIRECTED ROMEL Last Admin: 06/17/20 04:16 Dose: 150 mls/hr Documented by: Infusion: 06/17/20 04:16 Dose: 150 mls/hr Documented by: Admin: 06/16/20 22:01 Dose: 150 mls/hr Documented by: RENALDO Metformin HCl (Glucophage Xr) 500 mg PO BIDMEALS [facility] Mirtazapine (Remeron) 30 mg PO BEDTIME [facility] Multi-Ingred Cream/Lotion/Oil/Oint (Zinc Oxide) 15 gm TOP QID [facility] Multivitamins/Minerals/Vitamin C (Tab-A-Jocelin) 1 tab PO DAILY [facility] Non-Formulary Medication (Acamprosate [Campral]) 333 mg PO BID [facility] Non-Formulary Medication (Potassium Chloride [Potassium Chloride]) 10 meq PO DAILY [facility] Non-Formulary Medication (Calcium Carb, Citrate/Vit D3 [Citracal + D Er]) 1 tab PO BID [facility] Ondansetron HCl (Zofran Odt) 4 mg PO Q6H PRN PRN Reason: Nausea Ondansetron HCl (Zofran Odt) 4 mg PO Q6H PRN PRN Reason: Nausea/Vomiting Pantoprazole Sodium (Protonix) 40 mg PO DAILY [facility] Paroxetine HCl (Paxil) 20 mg PO DAILY [facility] Spironolactone (Aldactone) 25 mg PO DAILY [facility] Sucralfate (Carafate) 1 gm PO QIDACANDBED [facility] Thiamine HCl (Vitamin B-1) 100 mg PO DAILY [facility] Assessment/Plan Comment:: 1. Admit for observation. 2. IV fluids 3. Full code 4. IV proton pump inhibitor 5. Repeat labs including LFTs, amylase and lipase 6. Up with assist 7. Guaiac stool 8. Clear liquid diet - Mortality Measure Prognosis:: Good
[2020-06-17] MEDS ORDERED: PARoxetine 20 MG Tab PO SCH (09:00)
[2020-06-17] MEDS ORDERED: glipiZIDE 5 MG Tab PO SCH (09:00)
[2020-06-17] MEDS ORDERED: Pantoprazole 40 MG Tab.CR PO SCH (09:00)
[2020-06-17] MEDS ORDERED: Spironolactone 25 MG Tab PO SCH (09:00)
[2020-06-17] MEDS ORDERED: ACAMPROSATE 333 MG PO SCH (09:00)
[2020-06-17] MEDS ORDERED: Multivitamin Tab PO SCH (09:00)
[2020-06-17] MEDS ORDERED: Calcium Carbonate 500 MG Tablet PO SCH (09:00)
[2020-06-17] MEDS ORDERED: Thiamine 100 MG Tab PO SCH (09:00)
[2020-06-17] MEDS ORDERED: Pantoprazole 80 MG in Sodium Chloride 0.9% 100 ML IV SCH (09:00)
[2020-06-17] MEDS ORDERED: Folic Acid 1 MG Tab PO SCH (09:00)
[2020-06-17] MEDS: Pantoprazole 40 MG Vial IVPUSH SCH (11:04)
--- NOTE | 2020-06-17 17:10 | PCM.CONS ---
H&P History of Present Illness - General Date of Service: 06/17/20 Admit Problem/Dx: Admission Diagnosis/Problem Admission Diagnosis/Problem Nausea, vomiting, and diarrhea - History of Present Illness Initial Comments - Free Text/Narative: Pt has a hx of epigastric abd pain, nausea, vomiting as well as diarrhea. She has a hx of an esophageal ulcer that was found on egd in [place]. This was several months ago a follow up egd was recommend at the 2 wk point, which was not carried out. She does have a hx of chronic etoh abuse but reports that she has not consumed any alcohol in 10 days. She reports that she would be amenable to having an egd done. Abdomen Pain Score (Numeric/FACES): 5 - Related Data Allergies/Adverse Reactions: Allergies Allergy/AdvReac Type Severity Reaction Status Date / Time Sulfa (Sulfonamide Allergy Rash Verified 05/12/20 14:18 Antibiotics) Home Medications: Home Meds Multivitamin [Multi-Vitamin Daily] 1 tab PO DAILY 10/09/13 [History] Aspirin 81 mg PO DAILY 07/26/18 [History] Spironolactone [Aldactone] 25 mg PO DAILY 03/17/19 [History] Folic Acid 1 mg PO DAILY 05/03/19 [History] Calcium Carb, Citrate/Vit D3 [Citracal + D ER] 1 tab PO BID 12/20/19 [History] Mirtazapine [Remeron] 30 mg PO BEDTIME #30 tablet 01/01/20 [Rx] Thiamine [Vitamin B-1] 100 mg PO DAILY #30 tablet 01/01/20 [Rx] PARoxetine [Paxil] 20 mg PO DAILY 05/13/20 [History] metFORMIN [Glucophage XR] 500 mg PO BIDMEALS #60 tab.er 05/15/20 [Rx] Acamprosate [Campral] 333 mg PO BID 06/17/20 [History] Ondansetron [Zofran ODT] 4 mg PO Q6H PRN 06/17/20 [History] Pantoprazole Sodium [Protonix] 40 mg PO DAILY 06/17/20 [History] Potassium Chloride 10 meq PO DAILY 06/17/20 [History] glipiZIDE [Glucotrol] 2.5 mg PO DAILY 06/17/20 [History] Past Medical History HEENT History: Reports: Cataract, Impaired Vision Cardiovascular History: Reports: Hypertension, Other (See Below) Other Cardiovascular History: States has irregular HR at times. Respiratory History: Reports: Bronchitis, Recurrent, Pneumonia, Recurrent, Other (See Below) Other Respiratory History: Tobacco use. Gastrointestinal History: Reports: GERD, Pancreatitis, PUD Other Gastrointestinal History: "Prolapsed colon". Genitourinary History: Reports: Urinary Incontinence [employer] History: Reports: Other OB/BYN History: G0 Musculoskeletal History: Reports: Arthritis, Osteoporosis, Other (See Below) Other Musculoskeletal History: Movement disorder. Ataxia. Neurological History: Reports: Other (See Below) Other Neuro History: Episodes of DT's. Movement disorder. Psychiatric History: Reports: Addiction, Anxiety, Depression, Hallucinations, Other (See Below) Other Psychiatric History: Drug and alcohol addiction. Endocrine/Metabolic History: Reports: Osteoporosis Hematologic History: Reports: Anemia, Blood Transfusion(s), Other (See Below) Other Hematologic History: Leukopenia, thrombocytopenia. Immunologic History: Reports: None Oncologic (Cancer) History: Reports: None Dermatologic History: Reports: None - Infectious Disease History Infectious Disease History: Reports: Chicken Pox, Measles, Mumps - Past Surgical History Head Surgeries/Procedures: Reports: None GI Surgical History: Reports: Colonoscopy, EGD, Other (See Below) Other GI Surgeries/Procedures: History of feeding tube. Neurological Surgical History: Reports: None Musculoskeletal Surgical History: Reports: Other (See Below) Other Musculoskeletal Surgeries/Procedures:: Toe surgery. Social & Family History - Family History Family Medical History: Noncontributory - Tobacco Use Tobacco Use Status *Q: Current Every Day Tobacco User Years of Tobacco use: 30 Packs/Tins Daily: 0.5 Used Tobacco, but Quit: No Second Hand Smoke Exposure: Yes - Caffeine Use Caffeine Use: Reports: Coffee Other Caffeine Use: 2-3 CUPS DAILY - Alcohol Use Number of Drinks Per Day: 5 Date of Last Drink: 06/08/20 - Recreational Drug Use Recreational Drug Use: No - Living Situation & Occupation Living situation: Reports: Alone Occupation: Disabled H&P Review of Systems - Review of Systems: Review Of Systems: See Below General: Reports: No Symptoms Pulmonary: Reports: No Symptoms, Cough Cardiovascular: Reports: No Symptoms Gastrointestinal: Reports: Abdominal Pain, Nausea Exam - Exam Exam: See Below - Vital Signs Vital Signs: Last Vital Signs Temp 98.1 F 06/17/20 04:00 Pulse 86 06/17/20 04:00 Resp 16 06/17/20 04:00 BP 150/91 H 06/17/20 04:00 Pulse Ox 96 06/17/20 04:00 Weight: 48.137 kg - Exam General: Alert, Oriented, Cooperative Lungs: Clear to Auscultation, Normal Respiratory Effort Cardiovascular: Regular Rate, Regular Rhythm GI/Abdominal Exam: Normal Bowel Sounds, Soft, Non-Tender - Patient Data Lab Results Last 24 hrs: Laboratory Results - last 24 hr 06/16/20 06/16/20 06/16/20 Range/Units 20:30 20:30 20:55 WBC 5.8 (4.5-12.0) X10-3/uL RBC 3.67 (3.23-5.20) x10(6)uL Hgb 8.8 L (11.5-15.5) g/dL Hct 27.8 L (30.0-51.3) % MCV 75.7 L (80-96) fL MCH 23.8 L (27.7-33.6) pg MCHC 31.5 L (32.2-35.4) g/dL RDW 19.8 H (11.5-15.5) % Plt Count 216 (125-369) X10(3)uL MPV (7.4-10.4) fL Add Manual Diff Neutrophils % (Manual) (46-82) % Lymphocytes % (Manual) (13-37) % Monocytes % (Manual) (4-12) % Eosinophils % (Manual) (0-5) % Hypochromasia Anisocytosis Microcytosis Sodium 137 (135-145) mmol/L Potassium 4.1 (3.5-5.3) mmol/L Chloride 97 L D (100-110) mmol/L Carbon Dioxide 25 (21-32) mmol/L BUN 11 (7-18) mg/dL Creatinine 0.5 L (0.55-1.02) mg/dL Est Cr Clr Drug Dosing 76.31 mL/min Estimated GFR (MDRD) > 60 (>60) BUN/Creatinine Ratio 22.0 H (9-20) Glucose 106 (80-116) mg/dL Calcium 8.7 (8.6-10.2) mg/dL Amylase (25-115) U/L Lipase (73-393) U/L Urine Color (YELLOW) Urine Appearance (CLEAR) Urine pH (5.0-6.5) Ur Specific Edon (1.010-1.025) Urine Protein (NEGATIVE) mg/dL Urine Glucose (UA) (NORMAL) mg/dL Urine Ketones (NEGATIVE) mg/dL Urine Occult Blood (NEGATIVE) Urine Nitrite (NEGATIVE) Urine Bilirubin (NEGATIVE) Urine Urobilinogen (NEGATIVE) mg/dL Ur Leukocyte Esterase (NEGATIVE) Urine RBC (0-5) Urine WBC (0-5) Ur Squamous Epith Cells (NS,R,O) Calcium Oxalate Crystal (NS) Urine Bacteria (NS) SARS-CoV-2 RNA (DAMON) Negative (NEGATIVE) 06/16/20 06/17/20 06/17/20 Range/Units 21:30 10:08 10:08 WBC 5.1 (4.5-12.0) X10-3/uL RBC 3.26 (3.23-5.20) x10(6)uL Hgb 7.9 L (11.5-15.5) g/dL Hct 24.6 L (30.0-51.3) % MCV 75.4 L (80-96) fL MCH 24.3 L (27.7-33.6) pg MCHC 32.2 (32.2-35.4) g/dL RDW 20.1 H (11.5-15.5) % Plt Count 171 (125-369) X10(3)uL MPV 6.5 L (7.4-10.4) fL Add Manual Diff Yes Neutrophils % (Manual) 41 L (46-82) % Lymphocytes % (Manual) 31 (13-37) % Monocytes % (Manual) 27 H (4-12) % Eosinophils % (Manual) 1 (0-5) % Hypochromasia Few Anisocytosis Many H Microcytosis Moderate H Sodium (135-145) mmol/L Potassium (3.5-5.3) mmol/L Chloride (100-110) mmol/L Carbon Dioxide (21-32) mmol/L BUN (7-18) mg/dL Creatinine (0.55-1.02) mg/dL Est Cr Clr Drug Dosing mL/min Estimated GFR (MDRD) (>60) BUN/Creatinine Ratio (9-20) Glucose (80-116) mg/dL Calcium (8.6-10.2) mg/dL Amylase (25-115) U/L Lipase 93 (73-393) U/L Urine Color Yellow (YELLOW) Urine Appearance Slightly cloudy (CLEAR) Urine pH 8.0 H (5.0-6.5) Ur Specific Edon 1.015 (1.010-1.025) Urine Protein Negative (NEGATIVE) mg/dL Urine Glucose (UA) Normal (NORMAL) mg/dL Urine Ketones 15 H (NEGATIVE) mg/dL Urine Occult Blood Negative (NEGATIVE) Urine Nitrite Negative (NEGATIVE) Urine Bilirubin Negative (NEGATIVE) Urine Urobilinogen Normal (NEGATIVE) mg/dL Ur Leukocyte Esterase Negative (NEGATIVE) Urine RBC 0-5 (0-5) Urine WBC 0-5 (0-5) Ur Squamous Epith Cells Few H (NS,R,O) Calcium Oxalate Crystal Moderate H (NS) Urine Bacteria Few H (NS) SARS-CoV-2 RNA (DAMON) (NEGATIVE) 06/17/20 Range/Units 10:08 WBC (4.5-12.0) X10-3/uL RBC (3.23-5.20) x10(6)uL Hgb (11.5-15.5) g/dL Hct (30.0-51.3) % MCV (80-96) fL MCH (27.7-33.6) pg MCHC (32.2-35.4) g/dL RDW (11.5-15.5) % Plt Count (125-369) X10(3)uL MPV (7.4-10.4) fL Add Manual Diff Neutrophils % (Manual) (46-82) % Lymphocytes % (Manual) (13-37) % Monocytes % (Manual) (4-12) % Eosinophils % (Manual) (0-5) % Hypochromasia Anisocytosis Microcytosis Sodium (135-145) mmol/L Potassium (3.5-5.3) mmol/L Chloride (100-110) mmol/L Carbon Dioxide (21-32) mmol/L BUN (7-18) mg/dL Creatinine (0.55-1.02) mg/dL Est Cr Clr Drug Dosing mL/min Estimated GFR (MDRD) (>60) BUN/Creatinine Ratio (9-20) Glucose (80-116) mg/dL Calcium (8.6-10.2) mg/dL Amylase 76 (25-115) U/L Lipase (73-393) U/L Urine Color (YELLOW) Urine Appearance (CLEAR) Urine pH (5.0-6.5) Ur Specific Edon (1.010-1.025) Urine Protein (NEGATIVE) mg/dL Urine Glucose (UA) (NORMAL) mg/dL Urine Ketones (NEGATIVE) mg/dL Urine Occult Blood (NEGATIVE) Urine Nitrite (NEGATIVE) Urine Bilirubin (NEGATIVE) Urine Urobilinogen (NEGATIVE) mg/dL Ur Leukocyte Esterase (NEGATIVE) Urine RBC (0-5) Urine WBC (0-5) Ur Squamous Epith Cells (NS,R,O) Calcium Oxalate Crystal (NS) Urine Bacteria (NS) SARS-CoV-2 RNA (DAMON) (NEGATIVE) Result Diagrams: 06/17/20 10:08 06/16/20 20:30 Sepsis Event Note - Evaluation Sepsis Screening Result: No Definite Risk *Q Meaningful Use (ADM) - VTE *Q VTE Pharmacological Contraindications *Q: Patient Scheduled Surgery Consult PN Assessment/Plan Procedures: Procedures AIRWAY INHALATION TREATMENT (11/08/13) ANES UPR GI NDSC PX NOS (07/27/18) ASSAY OF AMYLASE (05/12/20) ASSAY OF ETHANOL (12/16/13) ASSAY OF FOLIC ACID SERUM (11/21/18) ASSAY OF IRON (11/21/18) ASSAY OF LACTIC ACID (02/12/20) ASSAY OF LIPASE (05/12/20) ASSAY OF MAGNESIUM (05/03/20) ASSAY OF PHOSPHORUS (12/20/19) ASSAY OF SERUM POTASSIUM (05/12/20) ASSAY OF TROPONIN QUANT (12/20/19) ASSAY OF URINE CREATININE (05/12/20) ASSAY OF VITAMIN B-1 (11/06/14) BLOOD CULTURE FOR BACTERIA (11/08/13) BLOOD GASES ANY COMBINATION (02/12/20) BLOOD TRANSFUSION SERVICE (12/20/19) BLOOD TYPING SEROLOGIC ABO (12/20/19) BLOOD TYPING SEROLOGIC RH(D) (12/20/19) C-REACTIVE PROTEIN (05/03/20) CHEST X-RAY 1 VIEW FRONTAL (12/16/13) CHEST X-RAY 2VW FRONTAL&LATL (11/08/13) COMPATIBILITY TEST ANTIGLOB (12/20/19) COMPATIBILITY TEST SPIN (12/20/19) COMPLETE CBC AUTOMATED (04/26/19) COMPLETE CBC W/AUTO DIFF WBC (05/12/20) COMPREHEN METABOLIC PANEL (05/12/20) CT ABD & PELV W/CONTRAST (05/03/20) DRUG TEST PRSMV CHEM ANLYZR (05/12/20) DRUG TEST PRSMV DIR OPT OBS (02/12/20) EGD BIOPSY SINGLE/MULTIPLE (07/27/18) ELECTROCARDIOGRAM REPORT (03/29/19) ELECTROCARDIOGRAM TRACING (02/12/20) EMERGENCY DEPT VISIT (05/12/20) EMERGENCY DEPT VISIT (12/20/19) EMERGENCY DEPT VISIT (12/20/19) EMERGENCY DEPT VISIT (03/17/19) EMERGENCY DEPT VISIT (02/21/18) EMERGENCY DEPT VISIT (02/21/18) EMERGENCY DEPT VISIT (11/06/14) EMERGENCY DEPT VISIT (11/06/14) EMERGENCY DEPT VISIT (12/16/13) EMERGENCY DEPT VISIT (12/16/13) EMERGENCY DEPT VISIT (11/20/13) EMERGENCY DEPT VISIT (11/12/13) EMERGENCY DEPT VISIT (11/08/13) EMERGENCY DEPT VISIT (11/08/13) EVALUATE PT USE OF INHALER (11/08/13) GAIT TRAINING THERAPY (12/20/19) GLUCOSE BLOOD TEST (05/12/20) GLYCOSYLATED HEMOGLOBIN TEST (05/12/20) HYDRATE IV INFUSION ADD-ON (05/12/20) IMMUNIZATION ADMIN (11/21/18) IMMUNOHISTO ANTB 1ST STAIN (07/27/18) INSERT NON-TUNNEL CV CATH (03/29/19) INSERT TEMP BLADDER CATH (11/21/18) IRON BINDING TEST (11/21/18) LIPID PANEL (05/12/20) MEASURE BLOOD OXYGEN LEVEL (04/26/19) METABOLIC PANEL TOTAL CA (05/12/20) MICROBE SUSCEPTIBLE MICHEL (12/20/19) MRI LUMBAR SPINE W/O DYE (02/03/19) NEUROMUSCULAR REEDUCATION (12/20/19) NON-ROUTINE BL DRAW 3/> YRS (05/12/20) OCCULT BLD FECES 1-3 TESTS (05/12/20) OCCULT BLOOD FECES (12/20/19) OT EVAL LOW COMPLEX 30 MIN (12/20/19) OT EVAL MOD COMPLEX 45 MIN (11/21/18) PROTHROMBIN TIME (05/12/20) PT EVAL LOW COMPLEX 20 MIN (12/20/19) RBC ANTIBODY SCREEN (12/20/19) ROUTINE VENIPUNCTURE (05/12/20) SELF CARE MNGMENT TRAINING (11/21/18) SPECIAL STAINS GROUP 2 (07/27/18) TDAP VACCINE 7 YRS/> IM (11/21/18) THER/DIAG CONCURRENT INF (01/25/18) THER/PROPH/DIAG INJ IV PUSH (05/12/20) THER/PROPH/DIAG INJ SC/IM (02/12/20) THER/PROPH/DIAG IV INF ADDON (03/29/19) THER/PROPH/DIAG IV INF INIT (02/12/20) THERAPEUTIC ACTIVITIES (12/20/19) THROMBOPLASTIN TIME PARTIAL (05/12/20) TISSUE EXAM BY PATHOLOGIST (07/27/18) TX/PRO/DX INJ NEW DRUG ADDON (05/12/20) TX/PRO/DX INJ SAME DRUG PARI MUTUEL TICKET CASHIER (05/03/20) TX/PROPH/DG ADDL SEQ IV INF (03/29/19) UR ALBUMIN QUANTITATIVE (05/12/20) URINALYSIS AUTO W/SCOPE (05/03/20) URINE BACTERIA CULTURE (12/20/19) URINE CULTURE/COLONY COUNT (12/20/19) VITAMIN B-12 (11/21/18) WITHDRAWAL OF ARTERIAL BLOOD (02/12/20) X-RAY EXAM ABDOMEN 2 VIEWS (05/12/20) X-RAY EXAM CHEST 1 VIEW (02/12/20) X-RAY EXAM OF ABDOMEN (11/08/13) X-RAY EXAM OF HIP (11/08/13) (1) History of esophageal ulcer SNOMED Code(s): 94247153130970330 Code(s): Z87.19 - PERSONAL HISTORY OF OTHER DISEASES OF THE DIGESTIVE SYSTEM Current Visit: Yes (2) Abdominal pain SNOMED Code(s): 36781396 Code(s): R10.9 - UNSPECIFIED ABDOMINAL PAIN Current Visit: No (3) H/O ETOH abuse SNOMED Code(s): 862875254 Code(s): Z87.898 - PERSONAL HISTORY OF OTHER SPECIFIED CONDITIONS Current V isit: No Problem List Initiated/Reviewed/Updated: Yes Plan: will set up for an egd on Wednesday. procedure and risks explained to the patient to include bleeding infection perforation. expressed understanding and asks us to proceed.
[2020-06-17] MEDS ORDERED: metFORMIN 500 MG Tab.ER PO SCH (18:00)
[2020-06-17] MEDS: Sucralfate 1 GM Tab PO SCH ×2 (19:08→20:57)
[2020-06-17] MEDS ORDERED: Mirtazapine 30 MG Tab PO SCH (21:00)
[2020-06-18] MEDS: Lactated Ringers 1,000 ML IV SCH (02:46)
[2020-06-18] MEDS: Sucralfate 1 GM Tab PO SCH ×4 (08:18→21:13)
[2020-06-18] MEDS: traMADol 50 MG Tab PO PRN ×4 (08:52→21:30)
[2020-06-18] MEDS: Pantoprazole 40 MG Vial IVPUSH SCH (08:52)
[2020-06-18] MEDS ORDERED: Sodium Chloride 0.9% 10 ML Syringe FLUSH PRN (08:53)
[2020-06-18] MEDS ORDERED: Potassium Chloride 10 MEQ Tab.ER PO SCH (09:00)
--- NOTE | 2020-06-18 09:03 | PCM.PN ---
- General Info Date of Service: 06/18/20 Admission Dx/Problem (Free Text): Patient still has burning in her epigastrium. Lipase and amylase are negative. No pain pills are ordered this time. She would like to have him. She's not had a BM. She has no blood in her stool, fevers, chills, nausea or vomiting. She says she feels little weak and dizzy. - Patient Data Vitals - Most Recent: Last Vital Signs Temp 98 F 06/18/20 04:00 Pulse 79 06/18/20 04:00 Resp 16 06/18/20 04:00 BP 135/75 06/18/20 04:00 Pulse Ox 96 06/18/20 04:00 Weight - Most Recent: 109 lb 3.2 oz I&O - Last 24 Hours: Intake & Output 06/17/20 06/18/20 06/18/20 22:59 06:59 14:59 Intake Total 2275 2202 Output Total 300 1800 Balance 1975 402 Lab Results Last 24 Hours: Laboratory Results - last 24 hr 06/17/20 06/17/20 06/17/20 Range/Units 10:08 10:08 10:08 WBC 5.1 (4.5-12.0) X10-3/uL RBC 3.26 (3.23-5.20) x10(6)uL Hgb 7.9 L (11.5-15.5) g/dL Hct 24.6 L (30.0-51.3) % MCV 75.4 L (80-96) fL MCH 24.3 L (27.7-33.6) pg MCHC 32.2 (32.2-35.4) g/dL RDW 20.1 H (11.5-15.5) % Plt Count 171 (125-369) X10(3)uL MPV 6.5 L (7.4-10.4) fL Add Manual Diff Yes Neutrophils % (Manual) 41 L (46-82) % Lymphocytes % (Manual) 31 (13-37) % Monocytes % (Manual) 27 H (4-12) % Eosinophils % (Manual) 1 (0-5) % Hypochromasia Few Anisocytosis Many H Microcytosis Moderate H Amylase 76 (25-115) U/L Lipase 93 (73-393) U/L Med Orders - Current: Current Medications Calcium Carbonate/Glycine (Oyster Shell Calcium) 500 mg PO BID [facility] Diphenoxylate HCl/Atropine (Lomotil 0.025-2.5 Mg) 1 tab PO QID PRN PRN Reason: Diarrhea Folic Acid (Folic Acid) 1 mg PO DAILY [facility] Glipizide (Glucotrol) 2.5 mg PO DAILY [facility] Metformin HCl (Glucophage Xr) 500 mg PO BIDMEALS [facility] Mirtazapine (Remeron) 30 mg PO BEDTIME [facility] Multi-Ingred Cream/Lotion/Oil/Oint (Zinc Oxide) 15 gm TOP QID [facility] Last Admin: 06/18/20 08:18 Dose: 15 gm Documented by: Multivitamins/Minerals/Vitamin C (Tab-A-Jocelin) 1 tab PO DAILY [facility] Non-Formulary Medication (Acamprosate [Campral]) 333 mg PO BID [facility] Ondansetron HCl (Zofran Odt) 4 mg PO Q6H PRN PRN Reason: Nausea Pantoprazole Sodium (Protonix) 40 mg PO DAILY [facility] Pantoprazole Sodium (Protonix Iv) 80 mg IVPUSH Q24H [facility] Last Admin: 06/18/20 08:52 Dose: 80 mg Documented by: Paroxetine HCl (Paxil) 20 mg PO DAILY [facility] Potassium Chloride (Klor-Con 10) 10 meq PO DAILY [facility] Sodium Chloride (Saline Flush) 10 ml FLUSH ASDIRECTED PRN PRN Reason: IV Use Spironolactone (Aldactone) 25 mg PO DAILY [facility] Sucralfate (Carafate) 1 gm PO QIDACANDBED [facility] Last Admin: 06/18/20 08:18 Dose: 1 gm Documented by: Thiamine HCl (Vitamin B-1) 100 mg PO DAILY [facility] Last Admin: 06/17/20 11:47 Dose: Not Given Documented by: Tramadol HCl (Ultram) 50 mg PO Q4H PRN PRN Reason: Pain Last Admin: 06/18/20 08:52 Dose: 50 mg Documented by: Discontinued Medications Acetaminophen (Tylenol) 650 mg PO NOW ONE Stop: 06/16/20 21:15 Last Admin: 06/16/20 22:29 Dose: 650 mg Documented by: Diphenoxylate HCl/Atropine (Lomotil) 10 ml PO NOW STA Stop: 06/16/20 20:03 Last Admin: 06/16/20 22:37 Dose: Not Given Documented by: Diphenoxylate HCl/Atropine (Lomotil 0.025-2.5 Mg) 2 tab PO ONETIME ONE Stop: 06/16/20 20:46 Last Admin: 06/16/20 22:25 Dose: 2 tab Documented by: Lactated Ringer's (Ringers, Lactated) 1,000 mls @ 1,000 mls/hr IV BOLUS ONE Stop: 06/16/20 21:01 Last Admin: 06/16/20 20:15 Dose: 1,000 mls/hr Documented by: Lactated Ringer's (Ringers, Lactated) 1,000 mls @ 150 mls/hr IV ASDIRECTED ROMEL Last Admin: 06/18/20 02:46 Dose: 150 mls/hr Documented by: Ondansetron HCl (Zofran) 4 mg IVPUSH ONETIME ONE Stop: 06/16/20 20:03 Last Admin: 06/16/20 20:41 Dose: 4 mg Documented by: Ondansetron HCl (Zofran) 4 mg IVPUSH ONETIME ONE Stop: 06/16/20 20:19 Last Admin: 06/16/20 22:40 Dose: Not Given Documented by: Sucralfate (Carafate) 1 gm PO QIDACANDBED [facility] - Exam General: Alert, Oriented Lungs: Normal Respiratory Effort GI/Abdominal Exam: Other (Abdomen soft with some epigastric pain on palpation.) Sepsis Event Note - Evaluation Sepsis Screening Result: No Definite Risk - Focused Exam Vital Signs: Vital Signs Temp Pulse Resp BP Pulse Ox 06/18/20 04:00 98 F 79 16 135/75 96 06/18/20 00:00 98 F 82 16 140/77 96 - Problem List & Annotations (1) Palliative care status SNOMED Code(s): 246854768 Code(s): Z51.5 - ENCOUNTER FOR PALLIATIVE CARE Status: Acute Current Visit: Yes (2) Nausea vomiting and diarrhea SNOMED Code(s): 9945524 Code(s): R11.2 - NAUSEA WITH VOMITING, UNSPECIFIED; R19.7 - DIARRHEA, UNSPECIFIED Status: Acute Current Visit: Yes (3) Abdominal pain SNOMED Code(s): 29027140 Code(s): R10.9 - UNSPECIFIED ABDOMINAL PAIN Status: Acute Current Visit: No (4) Anemia SNOMED Code(s): 075544162 Code(s): D64.9 - ANEMIA, UNSPECIFIED Status: Acute Current Visit: No (5) Depression SNOMED Code(s): 57331399 Code(s): F32.9 - MAJOR DEPRESSIVE DISORDER, SINGLE EPISODE, UNSPECIFIED Status: Chronic Current Visit: No (6) History of alcohol abuse SNOMED Code(s): 208028608 Code(s): F10.11 - ALCOHOL ABUSE, IN REMISSION Status: Acute Current Visit: Yes - Problem List Review Problem List Initiated/Reviewed/Updated: Yes - My Orders Last 24 Hours: My Active Orders 06/17/20 09:00 Acamprosate [Campral] 333 mg PO BID Calcium Carbonate [Oyster Shell Calcium] 500 mg PO BID Folic Acid 1 mg PO DAILY Multivitamins [Tab-A-Jocelin] 1 tab PO DAILY PARoxetine [Paxil] 20 mg PO DAILY Pantoprazole [ProTONIX] 40 mg PO DAILY Spironolactone [Aldactone] 25 mg PO DAILY Thiamine [Vitamin B-1] 100 mg PO DAILY glipiZIDE [Glucotrol] 2.5 mg PO DAILY 06/17/20 09:30 Pantoprazole [ProTONIX IV] 80 mg IVPUSH Q24H 06/17/20 15:05 Consult to Physician [CONS] Routine 06/17/20 18:00 metFORMIN [Glucophage XR] 500 mg PO BIDMEALS 06/18/20 07:16 CBC WITH AUTO DIFF [HEME] Routine 06/18/20 08:01 traMADol [Ultram] 50 mg PO Q4H PRN 06/18/20 08:19 Convert IV to Saline Lock [OM.PC] Routine 06/18/20 08:53 Sodium Chloride 0.9% [Saline Flush] 10 ml FLUSH ASDIRECTED PRN 06/18/20 09:00 Potassium Chloride [Klor-Con 10] 10 meq PO DAILY 06/18/20 09:01 Convert IV to Saline Lock [OM.PC] Routine 06/18/20 Lunch Regular Diet [DIET] - Assessment Assessment:: CBC today. DC IV fluids and saline lock IV. Tramadol 50 mg every 4 hours when necessary for pain EGD in the a.m. - Plan Plan:: 1. Admit for observation. 2. IV fluids 3. Full code 4. IV proton pump inhibitor 5. Repeat labs including LFTs, amylase and lipase 6. Up with assist 7. Guaiac stool 8. Clear liquid diet
[2020-06-19] MEDS: traMADol 50 MG Tab PO PRN ×2 (01:48→10:35)
[2020-06-19] MEDS: Sucralfate 1 GM Tab PO SCH ×2 (06:36→10:36)
--- NOTE | 2020-06-19 07:42 | PCM.PN ---
- General Info Date of Service: 06/19/20 Admission Dx/Problem (Free Text): He should still has epigastric pain but is improved. She states she can eat food but not as much as usual. Moving her bowels. No fevers, chills. - Patient Data Vitals - Most Recent: Last Vital Signs Temp 97.8 F 06/19/20 00:00 Pulse 94 06/19/20 00:00 Resp 16 06/19/20 00:00 BP 155/99 H 06/19/20 00:00 Pulse Ox 97 06/19/20 00:00 Weight - Most Recent: 109 lb 3.2 oz I&O - Last 24 Hours: Intake & Output 06/18/20 06/19/20 06/19/20 22:59 06:59 14:59 Intake Total 600 0 Output Total 300 200 Balance 300 -200 Lab Results Last 24 Hours: Laboratory Results - last 24 hr 06/18/20 Range/Units 09:30 WBC 3.9 L (4.5-12.0) X10-3/uL RBC 3.31 (3.23-5.20) x10(6)uL Hgb 8.0 L (11.5-15.5) g/dL Hct 25.3 L (30.0-51.3) % MCV 76.5 L (80-96) fL MCH 24.1 L (27.7-33.6) pg MCHC 31.5 L (32.2-35.4) g/dL RDW 20.8 H (11.5-15.5) % Plt Count 178 (125-369) X10(3)uL MPV 6.6 L (7.4-10.4) fL Add Manual Diff Yes Neutrophils % (Manual) 49 (46-82) % Lymphocytes % (Manual) 35 (13-37) % Monocytes % (Manual) 11 (4-12) % Eosinophils % (Manual) 5 (0-5) % Hypochromasia Few Anisocytosis Many H Microcytosis Moderate H Med Orders - Current: Current Medications Calcium Carbonate/Glycine (Oyster Shell Calcium) 500 mg PO BID [facility] Diphenoxylate HCl/Atropine (Lomotil 0.025-2.5 Mg) 1 tab PO QID PRN PRN Reason: Diarrhea Folic Acid (Folic Acid) 1 mg PO DAILY [facility] Glipizide (Glucotrol) 2.5 mg PO DAILY [facility] Metformin HCl (Glucophage Xr) 500 mg PO BIDMEALS [facility] Mirtazapine (Remeron) 30 mg PO BEDTIME [facility] Multi-Ingred Cream/Lotion/Oil/Oint (Zinc Oxide) 15 gm TOP QID [facility] Last Admin: 06/18/20 21:12 Dose: 15 gm Documented by: Multivitamins/Minerals/Vitamin C (Tab-A-Jocelin) 1 tab PO DAILY [facility] Non-Formulary Medication (Acamprosate [Campral]) 333 mg PO BID [facility] Ondansetron HCl (Zofran Odt) 4 mg PO Q6H PRN PRN Reason: Nausea Pantoprazole Sodium (Protonix) 40 mg PO DAILY [facility] Pantoprazole Sodium (Protonix Iv) 80 mg IVPUSH Q24H [facility] Last Admin: 06/18/20 08:52 Dose: 80 mg Documented by: Paroxetine HCl (Paxil) 20 mg PO DAILY [facility] Potassium Chloride (Klor-Con 10) 10 meq PO DAILY [facility] Sodium Chloride (Saline Flush) 10 ml FLUSH ASDIRECTED PRN PRN Reason: IV Use Spironolactone (Aldactone) 25 mg PO DAILY [facility] Sucralfate (Carafate) 1 gm PO QIDACANDBED [facility] Last Admin: 06/19/20 06:36 Dose: Not Given Documented by: Thiamine HCl (Vitamin B-1) 100 mg PO DAILY [facility] Last Admin: 06/17/20 11:47 Dose: Not Given Documented by: Tramadol HCl (Ultram) 50 mg PO Q4H PRN PRN Reason: Pain Last Admin: 06/19/20 01:48 Dose: 50 mg Documented by: Discontinued Medications Acetaminophen (Tylenol) 650 mg PO NOW ONE Stop: 06/16/20 21:15 Last Admin: 06/16/20 22:29 Dose: 650 mg Documented by: Diphenoxylate HCl/Atropine (Lomotil) 10 ml PO NOW STA Stop: 06/16/20 20:03 Last Admin: 06/16/20 22:37 Dose: Not Given Documented by: Diphenoxylate HCl/Atropine (Lomotil 0.025-2.5 Mg) 2 tab PO ONETIME ONE Stop: 06/16/20 20:46 Last Admin: 06/16/20 22:25 Dose: 2 tab Documented by: Lactated Ringer's (Ringers, Lactated) 1,000 mls @ 1,000 mls/hr IV BOLUS ONE Stop: 06/16/20 21:01 Last Admin: 06/16/20 20:15 Dose: 1,000 mls/hr Documented by: Lactated Ringer's (Ringers, Lactated) 1,000 mls @ 150 mls/hr IV ASDIRECTED [facility] Last Admin: 06/18/20 02:46 Dose: 150 mls/hr Documented by: Ondansetron HCl (Zofran) 4 mg IVPUSH ONETIME ONE Stop: 06/16/20 20:03 Last Admin: 06/16/20 20:41 Dose: 4 mg Documented by: Ondansetron HCl (Zofran) 4 mg IVPUSH ONETIME ONE Stop: 06/16/20 20:19 Last Admin: 06/16/20 22:40 Dose: Not Given Documented by: Sucralfate (Carafate) 1 gm PO QIDACANDBED [facility] - Exam General: Alert, Oriented, Cooperative GI/Abdominal Exam: Soft, Tender (Epigastrium) Sepsis Event Note - Evaluation Sepsis Screening Result: No Definite Risk - Focused Exam Vital Signs: Vital Signs Temp Pulse Resp BP Pulse Ox 06/19/20 00:00 97.8 F 94 16 155/99 H 97 - Problem List & Annotations (1) Palliative care status SNOMED Code(s): 949303149 Code(s): Z51.5 - ENCOUNTER FOR PALLIATIVE CARE Status: Acute Current Visit: Yes (2) Nausea vomiting and diarrhea SNOMED Code(s): 4255263 Code(s): R11.2 - NAUSEA WITH VOMITING, UNSPECIFIED; R19.7 - DIARRHEA, UNSPEC IFIED Status: Acute Current Visit: Yes (3) Abdominal pain SNOMED Code(s): 45409936 Code(s): R10.9 - UNSPECIFIED ABDOMINAL PAIN Status: Acute Current Visit: No (4) Anemia SNOMED Code(s): 030446368 Code(s): D64.9 - ANEMIA, UNSPECIFIED Status: Acute Current Visit: No (5) Depression SNOMED Code(s): 32619783 Code(s): F32.9 - MAJOR DEPRESSIVE DISORDER, SINGLE EPISODE, UNSPECIFIED Status: Chronic Current Visit: No (6) History of alcohol abuse SNOMED Code(s): 393573083 Code(s): F10.11 - ALCOHOL ABUSE, IN REMISSION Status: Acute Current Visit: Yes (7) Gastritis SNOMED Code(s): 6365311 Code(s): K29.70 - GASTRITIS, UNSPECIFIED, WITHOUT BLEEDING Status: Acute Current Visit: Yes - Problem List Review Problem List Initiated/Reviewed/Updated: Yes - My Orders Last 24 Hours: My Active Orders 06/18/20 08:01 traMADol [Ultram] 50 mg PO Q4H PRN 06/18/20 08:19 Convert IV to Saline Lock [OM.PC] Routine 06/18/20 08:53 Sodium Chloride 0.9% [Saline Flush] 10 ml FLUSH ASDIRECTED PRN 06/18/20 09:00 Potassium Chloride [Klor-Con 10] 10 meq PO DAILY 06/18/20 09:01 Convert IV to Saline Lock [OM.PC] Routine 06/18/20 Lunch Regular Diet [DIET] - Assessment Assessment:: EGD this a.m. Unless some unforeseen finding anticipate discharge after EGD. - Plan Plan:: 1. Admit for observation. 2. IV fluids 3. Full code 4. IV proton pump inhibitor 5. Repeat labs including LFTs, amylase and lipase 6. Up with assist 7. Guaiac stool 8. Clear liquid diet
--- NOTE | 2020-06-19 10:13 | PCM.OPNOTE ---
- General Post-Op/Procedure Note Date of Surgery/Procedure: 06/19/20 Operative Procedure(s): egd with biopsy Findings: gastritis irregular z line Pre Op Diagnosis: hx of abd pain , esophageal ulcer Post-Op Diagnosis: gastritis. irregular z line Anesthesia Technique: MAC Primary Surgeon: Arnie Quiroga Anesthesia Provider: Mirza Luz Pathology: stomach and distal esophagus Complications: None Condition: Good Free Text/Narrative:: Intake & Output 06/18/20 06/19/20 06/19/20 22:59 06:59 14:59 Intake Total 600 0 Output Total 300 200 Balance 300 -200 see dictation [id number]
[2020-06-19] MEDS: Pantoprazole 40 MG Vial IVPUSH SCH ×2 (10:36→10:49)
--- NOTE | 2020-06-19 12:15 | PCM.DCSUM1 ---
Discharge Summary - Hospital Course Free Text/Narrative:: Hospital course-patient was admitted and recheck lipase and amylase and they were normal. Patient had a history of esophageal ulcer in February and never had a follow-up on. She states she's not been drinking for at least 10 days. Replace her proton pump inhibitor and controlled her pain. We slowly were able to start a diet after we've been on clear liquids. Hemoglobin ranged around 8.0 so no transfusion was done. Dr. Quiroga saw her in consultation to the EGD and found gastritis per should be discharged on proton pump inhibitor and Carafate. Patient does not want to take any iron because it upsets her stomach. She does not like red meat very well by encourage her to eat some to get her hemoglobin back up. Brief History: This is a 64-year-old female patient has a three-day history of vomiting and diarrhea. Not able to keep anything down. She has a history of alcoholism. She says she has not drank in over 10 days. She says the pain is epigastric. She's had pancreatitis in the past. She also gastric ulcer that was bleeding and was postictal followed up on and she states it never was. She does not vomit any blood. She denies any blood in her stool. The pain is epigastric and it does not radiate. No history of cholecystectomy or appendectomy. Denies fevers, chills. Diagnosis: Stroke: No - Discharge Data Discharge Date: 06/19/20 Discharge Disposition: Home, Self-Care 01 Condition: Good - Referral to Home Health Primary Care Physician: Aden Lemus MD - Discharge Diagnosis/Problem(s) (1) Palliative care status SNOMED Code(s): 511571362 ICD Code: Z51.5 - ENCOUNTER FOR PALLIATIVE CARE Status: Acute Current Visit: Yes (2) Nausea vomiting and diarrhea SNOMED Code(s): 5081004 ICD Code: R11.2 - NAUSEA WITH VOMITING, UNSPECIFIED; R19.7 - DIARRHEA, UNSPECIFIED Status: Acute Current Visit: Yes (3) Abdominal pain SNOMED Code(s): 94500996 ICD Code: R10.9 - UNSPECIFIED ABDOMINAL PAIN Status: Acute Current Visit: No (4) Anemia SNOMED Code(s): 489946006 ICD Code: D64.9 - ANEMIA, UNSPECIFIED Status: Acute Current Visit: No (5) Depression SNOMED Code(s): 47067217 ICD Code: F32.9 - MAJOR DEPRESSIVE DISORDER, SINGLE EPISODE, UNSPECIFIED Status: Chronic Current Visit: No (6) History of alcohol abuse SNOMED Code(s): 655496468 ICD Code: F10.11 - ALCOHOL ABUSE, IN REMISSION Status: Acute Current Visit: Yes (7) Gastritis SNOMED Code(s): 8132597 ICD Code: K29.70 - GASTRITIS, UNSPECIFIED, WITHOUT BLEEDING Status: Acute Current Visit: Yes - Patient Summary/Data Operative Procedure(s) Performed: egd with biopsy Consults: Consultations 06/17/20 15:05 Consult to Physician [CONS] Routine Consulting Provider: Arnie Quiroga Call Completed to Consulting Physician: Yes Reason for Consult: Epigastric pain with recent history of Esophogeal ulcer - Patient Instructions Diet: Diabetic Diet Activity: As Tolerated Driving: May Drive Today Showering/Bathing: May Shower Notify Provider of: Increased Pain Other/Special Instructions: 1. Recheck with Dr Armstrong in 1 week. 2. Recheck [address] Dr Quiroga per him. 3. CBC at [facility] with Allan - Discharge Plan *PRESCRIPTION DRUG MONITORING PROGRAM REVIEWED*: Not Applicable *COPY OF PRESCRIPTION DRUG MONITORING REPORT IN PATIENT KISHAN: Not Applicable Prescriptions/Med Rec: Sucralfate [Carafate] 1 gm PO QID #120 tablet Home Medications: Home Meds Multivitamin [Multi-Vitamin Daily] 1 tab PO DAILY 10/09/13 [History] Aspirin 81 mg PO DAILY 07/26/18 [History] Spironolactone [Aldactone] 25 mg PO DAILY 03/17/19 [History] Folic Acid 1 mg PO DAILY 05/03/19 [History] Calcium Carb, Citrate/Vit D3 [Citracal + D ER] 1 tab PO BID 12/20/19 [History] Mirtazapine [Remeron] 30 mg PO BEDTIME #30 tablet 01/01/20 [Rx] Thiamine [Vitamin B-1] 100 mg PO DAILY #30 tablet 01/01/20 [Rx] PARoxetine [Paxil] 20 mg PO DAILY 05/13/20 [History] metFORMIN [Glucophage XR] 500 mg PO BIDMEALS #60 tab.er 05/15/20 [Rx] Acamprosate [Campral] 333 mg PO BID 06/17/20 [History] Ondansetron [Zofran ODT] 4 mg PO Q6H PRN 06/17/20 [History] Pantoprazole Sodium [Protonix] 40 mg PO DAILY 06/17/20 [History] Potassium Chloride 10 meq PO DAILY 06/17/20 [History] glipiZIDE [Glucotrol] 2.5 mg PO DAILY 06/17/20 [History] Sucralfate [Carafate] 1 gm PO QID #120 tablet 06/19/20 [Rx] Forms: ED Department Discharge Referrals: Aden Lemus MD [Primary Care Provider] - - Discharge Summary/Plan Comment DC Time >30 min.: No - Patient Data Vitals - Most Recent: Last Vital Signs Temp 97.8 F 06/19/20 00:00 Pulse 94 06/19/20 00:00 Resp 16 06/19/20 00:00 BP 155/99 H 06/19/20 00:00 Pulse Ox 97 06/19/20 00:00 Weight - Most Recent: 109 lb 3.2 oz I&O - Last 24 hours: Intake & Output 06/18/20 06/19/20 06/19/20 22:59 06:59 14:59 Intake Total 600 0 Output Total 300 200 Balance 300 -200 Med Orders - Current: Current Medications Calcium Carbonate/Glycine (Oyster Shell Calcium) 500 mg PO BID [facility] Diphenoxylate HCl/Atropine (Lomotil 0.025-2.5 Mg) 1 tab PO QID PRN PRN Reason: Diarrhea Folic Acid (Folic Acid) 1 mg PO DAILY [facility] Glipizide (Glucotrol) 2.5 mg PO DAILY [facility] Metformin HCl (Glucophage Xr) 500 mg PO BIDMEALS [facility] Mirtazapine (Remeron) 30 mg PO BEDTIME [facility] Multi-Ingred Cream/Lotion/Oil/Oint (Zinc Oxide) 15 gm TOP QID [facility] Last Admin: 06/19/20 12:00 Dose: 15 gm Documented by: Multivitamins/Minerals/Vitamin C (Tab-A-Jocelin) 1 tab PO DAILY [facility] Non-Formulary Medication (Acamprosate [Campral]) 333 mg PO BID [facility] Ondansetron HCl (Zofran Odt) 4 mg PO Q6H PRN PRN Reason: Nausea Last Admin: 06/19/20 12:00 Dose: 4 mg Documented by: Pantoprazole Sodium (Protonix) 40 mg PO DAILY [facility] Pantoprazole Sodium (Protonix Iv) 80 mg IVPUSH Q24H [facility] Last Admin: 06/19/20 10:49 Dose: 80 mg Documented by: Paroxetine HCl (Paxil) 20 mg PO DAILY [facility] Potassium Chloride (Klor-Con 10) 10 meq PO DAILY [facility] Sodium Chloride (Saline Flush) 10 ml FLUSH ASDIRECTED PRN PRN Reason: IV Use Last Admin: 06/19/20 10:59 Dose: 10 ml Documented by: Spironolactone (Aldactone) 25 mg PO DAILY [facility] Sucralfate (Carafate) 1 gm PO QIDACANDBED [facility] Last Admin: 06/19/20 10:36 Dose: 1 gm Documented by: Thiamine HCl (Vitamin B-1) 100 mg PO DAILY [facility] Last Admin: 06/17/20 11:47 Dose: Not Given Documented by: Tramadol HCl (Ultram) 50 mg PO Q4H PRN PRN Reason: Pain Last Admin: 06/19/20 10:35 Dose: 50 mg Documented by: Discontinued Medications Acetaminophen (Tylenol) 650 mg PO NOW ONE Stop: 06/16/20 21:15 Last Admin: 06/16/20 22:29 Dose: 650 mg Documented by: Diphenoxylate HCl/Atropine (Lomotil) 10 ml PO NOW STA Stop: 06/16/20 20:03 Last Admin: 06/16/20 22:37 Dose: Not Given Documented by: Diphenoxylate HCl/Atropine (Lomotil 0.025-2.5 Mg) 2 tab PO ONETIME ONE Stop: 06/16/20 20:46 Last Admin: 06/16/20 22:25 Dose: 2 tab Documented by: Lactated Ringer's (Ringers, Lactated) 1,000 mls @ 1,000 mls/hr IV BOLUS ONE Stop: 06/16/20 21:01 Last Admin: 06/16/20 20:15 Dose: 1,000 mls/hr Documented by: Lactated Ringer's (Ringers, Lactated) 1,000 mls @ 150 mls/hr IV ASDIRECTED [facility] Last Admin: 06/18/20 02:46 Dose: 150 mls/hr Documented by: Ondansetron HCl (Zofran) 4 mg IVPUSH ONETIME ONE Stop: 06/16/20 20:03 Last Admin: 06/16/20 20:41 Dose: 4 mg Documented by: Ondansetron HCl (Zofran) 4 mg IVPUSH ONETIME ONE Stop: 06/16/20 20:19 Last Admin: 06/16/20 22:40 Dose: Not Given Documented by: Sucralfate (Carafate) 1 gm PO QIDACANDBED [facility] *Q Meaningful Use (DIS) - VTE *Q VTE Pharmacological Contraindications *Q: Patient Scheduled Surgery
[2020-06-19] MEDS ORDERED: Propofol 200 MG/20 ML SDV IV ONE (13:34)
[2020-06-19 14:17] VITALS: BP 141/67; PULSE 85
--- NOTE | 2020-06-19 14:44 | OR ---
DATE OF OPERATION: 06/19/2020 SURGEON: Arnie Quiroga MD PREOPERATIVE DIAGNOSES: History of esophageal ulcer as well as epigastric abdominal pain and nausea. POSTOPERATIVE DIAGNOSES: Gastritis and irregular Z-line. PROCEDURE PERFORMED: Esophagogastroduodenoscopy with cold forceps biopsy. INDICATIONS FOR PROCEDURE: This 64-year-old white female has a history of alcohol abuse. In the past, was admitted with a history of epigastric abdominal discomfort. Apparently, during a hospitalization in [place] several months ago, the patient was noted to have an esophageal ulcer. A followup scope was recommended, which she did not follow up with. Her abdominal pain has gotten better since her admission. She was offered and accepted an EGD to evaluate her stomach, duodenum, and esophagus. DESCRIPTION OF OPERATION: After an excellent IV sedation was administered, the bite block was inserted and flexible endoscope was passed without difficulty down the patient's esophagus into the stomach. Stomach was insufflated. The scope was passed through the pylorus to the second portion of the duodenum and slowly withdrawn. The following findings were noted. The duodenum was unremarkable. Stomach demonstrated some diffuse gastritis. GE junction appeared to be at 40 cm and there was roughly 2 cm of an irregularity noted in the mucosa on one side. Several biopsies were taken of this area to see if there was any evidence of intestinal metaplasia. Otherwise, the esophagus was unremarkable. The stomach was deflated, scope was removed. The patient tolerated the procedure well. /[id number] /CHANDRIKAL
== END 2020-06-19 13:35 | disposition home or self-care (01) ==
LOC: FB.ED 19:25 → FB.MS 22:08
PROVIDERS: ADMIT Emergency Medicine; ATTEND Family Medicine
DX: K29.50 Unspecified chronic gastritis without bleeding (principal); R19.7 Diarrhea, unspecified; F32.9 Major depressive disorder, single episode, unspecified; I10 Essential (primary) hypertension; D50.9 Iron deficiency anemia, unspecified; F41.9 Anxiety disorder, unspecified; F17.210 Nicotine dependence, cigarettes, uncomplicated; F10.11 Alcohol abuse, in remission; Z79.82 Long term (current) use of aspirin; Z79.84 Long term (current) use of oral hypoglycemic drugs; Z79.899 Other long term (current) drug therapy; Z88.2 Allergy status to sulfonamides; Z51.5 Encounter for palliative care; Z20.828 Contact with and (suspected) exposure to other viral communicable diseases; Z01.812 Encounter for preprocedural laboratory examination
CPT/HCPCS: 00731; 36415; 43239; 80048; 81001; 82150; 83690; 85025; 85027; 88305; 88313; 88342; 96361; 96374; 96375; 96376; 99285; A9270; C9113; G0378; J2405; J2704; J7120; U0002; 99284

== ENCOUNTER 2020-07-05 22:52 | Inpatient (IN) | payer MEDICARE ==
[2020-07-05] MEDS ORDERED: Sodium Chloride 0.9% 10 ML Syringe FLUSH PRN (23:00)
[2020-07-05] MEDS ORDERED: Sodium Chloride 0.9% 1,000 ML IV ONE (23:03)
[2020-07-05] MEDS ORDERED: Ondansetron 4 MG/2 ML SDV IVPUSH ONE (23:03)
--- NOTE | 2020-07-05 23:05 | EDM.PDOC ---
ED HPI GENERAL MEDICAL PROBLEM - General Time Seen by Provider: 07/05/20 23:00 Source of Information: Reports: Patient, EMS History Limitations: Reports: Intoxication (She is acutely intoxicated but she is awake and alert and able to give a history) - History of Present Illness INITIAL COMMENTS - FREE TEXT/NARRATIVE: 64-year-old female who has long-standing history of alcohol abuse and multiple/frequent visits to the emergency department related to vomiting and sometimes rather severe metabolic acidosis associated with her vomiting and alcohol abuse. She tells me that she has been drinking vodka recently but police noted that in her home there were multiple empty bottles of Listerine and the patient does report that she has been drinking this as well. She reports that at 8 to 9 AM on 07/05/2020, she began to feel short of breath and she has intermittently had feelings of shortness of breath all through the day. She has had no cough. There is been no nasal congestion. No sore throat. She also reports that she has had intermittent vomiting throughout the day but had been able to drink liquids including her alcohol. This evening she noted that the shortness of breath seemed to be more present than absent and she also noted more vomiting. Anaprox we 9:30 PM she went to her neighbor's house because she was really feeling short of breath and her neighbor recommended that she call 911. The patient presents to the emergency department via ambulance. She had normal O2 saturations on room air on arrival but multiple episodes of emesis on the way into the emergency department and she did appear to be somewhat dysp neic. The patient does report diffuse abdominal pain that is similar to pains that she has had in the past and actually she does have chronic pain. She rates the pain as a 5-6/10. It does not radiate. It is diffuse throughout her abdomen. It is worse with palpation. She is actively having emesis upon arrival. There are no other associated signs or symptoms. There are no other modifying factors. 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) (Nothing) ABDOMEN Pain Score (Numeric/FACES): 6 - Related Data Allergies Allergy/AdvReac Type Severity Reaction Status Date / Time Sulfa (Sulfonamide Allergy Rash Verified 05/12/20 14:18 Antibiotics) Home Meds: Home Meds Multivitamin [Multi-Vitamin Daily] 1 tab PO DAILY 10/09/13 [History] Aspirin 81 mg PO DAILY 07/26/18 [History] Spironolactone [Aldactone] 25 mg PO DAILY 03/17/19 [History] Folic Acid 1 mg PO DAILY 05/03/19 [History] Calcium Carb, Citrate/Vit D3 [Citracal + D ER] 1 tab PO BID 12/20/19 [History] Mirtazapine [Remeron] 30 mg PO BEDTIME #30 tablet 01/01/20 [Rx] Thiamine [Vitamin B-1] 100 mg PO DAILY #30 tablet 01/01/20 [Rx] PARoxetine [Paxil] 20 mg PO DAILY 05/13/20 [History] metFORMIN [Glucophage XR] 500 mg PO BIDMEALS #60 tab.er 05/15/20 [Rx] Acamprosate [Campral] 333 mg PO BID 06/17/20 [History] Ondansetron [Zofran ODT] 4 mg PO Q6H PRN 06/17/20 [History] Pantoprazole Sodium [Protonix] 40 mg PO DAILY 06/17/20 [History] Potassium Chloride 10 meq PO DAILY 06/17/20 [History] glipiZIDE [Glucotrol] 2.5 mg PO DAILY 06/17/20 [History] Sucralfate [Carafate] 1 gm PO QID #120 tablet 06/19/20 [Rx] Past Medical History HEENT History: Reports: Cataract, Impaired Vision Cardiovascular History: Reports: Hypertension Respiratory History: Reports: Bronchitis, Recurrent, Pneumonia, Recurrent Gastrointestinal History: Reports: GERD, Pancreatitis, PUD Other Gastrointestinal History: "Prolapsed colon". 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 Ataxia. Psychiatric History: Reports: Addiction, Anxiety, Depression, Other (See Below) Other Psychiatric History: Drug and alcohol addiction. Endocrine/Metabolic History: Reports: Osteoporosis Hematologic History: Reports: Anemia, Blood Transfusion(s), Other (See Below) Other Hematologic History: Leukopenia, thrombocytopenia. - Infectious Disease History Infectious Disease History: Reports: Chicken Pox, Measles, Mumps - Past Surgical History GI Surgical History: Reports: Colonoscopy, EGD, Other (See Below) Other GI Surgeries/Procedures: History of feeding tube. Musculoskeletal Surgical History: Reports: Other (See Below) Other Musculoskeletal Surgeries/Procedures:: Toe surgery. Social & Family History - Tobacco Use Tobacco Use Status *Q: Current Every Day Tobacco User - Caffeine Use Caffeine Use: Reports: Coffee Other Caffeine Use: 2-3 CUPS DAILY - Alcohol Use Alcohol Use History: Yes Alcohol Use Frequency: Daily (Heavily with both alcohol and Listerine) - Living Situation & Occupation Living situation: Reports: Alone Occupation: Disabled ED ROS GENERAL - Review of Systems Review Of Systems: See Below Constitutional: Reports: Weakness HEENT: Reports: Other (Dry mouth.) Respiratory: Reports: Shortness of Breath. Denies: Hemoptysis Cardiovascular: Reports: No Symptoms GI/Abdominal: Reports: Abdominal Pain, Nausea, Vomiting. Denies: Diarrhea : Reports: No Symptoms Musculoskeletal: Reports: No Symptoms Skin: Reports: No Symptoms Neurological: Reports: No Symptoms Psychiatric: Reports: Anxiety Hematologic/Lymphatic: Reports: No Symptoms Immunologic: Reports: No Symptoms ED EXAM, GENERAL - Physical Exam Exam: See Below Exam Limited By: No Limitations General Appearance: Alert, WD/WN, Anxious, Moderate Distress, Other (dishoveled.) Eye Exam: Bilateral Eye: EOMI (There is lateral gaze nystagmus a less than 45.), Normal Inspection Ears: Normal External Exam, Hearing Grossly Normal Ear Exam: Bilateral Ear: Auricle Normal Nose: Normal Inspection, Normal Mucosa, No Blood Throat/Mouth: Normal Voice, No Airway Compromise, Other (Dry mucous membranes. Strong odor of alcohol on her breath.) Head: Atraumatic, Normocephalic Neck: Normal Inspection, Supple, Non-Tender, Full Range of Motion Respiratory/Chest: No Respiratory Distress, Lungs Clear, Normal Breath Sounds, No Accessory Muscle Use, Chest Non-Tender Cardiovascular: Normal Peripheral Pulses, No Edema, No JVD, No Murmur, Tachycardia Peripheral Pulses: 2+: Radial (L), Radial (R), Dorsalis Pedis (L), Dorsalis Pedis (R) GI/Abdominal: Normal Bowel Sounds, Soft, No Mass, Tender (Mild diffuse tenderness). No: Guarding, Rigid, Rebound Back Exam: Normal Inspection, Full Range of Motion Extremities: Normal Inspection, Normal Range of Motion, Non-Tender, No Pedal Edema, Normal Capillary Refill Neurological: Alert, Oriented, CN II-XII Intact, No Motor/Sensory Deficits Psychiatric: Flat Affect Skin Exam: Warm, Dry, Intact, Normal Color, No Rash #1 Interpretation EKG Date: 07/06/20 Time: 00:27 Rhythm: Other (Sinus tachycardia) Rate (Beats/Min): 107 [place]: LAD-Left [place] Deviation P-Wave: Present QRS: Normal ST-T: Normal QT: Prolonged (Prolonged QTc.) Comparison: No Change (No change from an EKG performed on 02/12/2020.) Course - Vital Signs Last Recorded V/S: Last Vital Signs Temp 36.8 C 07/06/20 02:06 Pulse 102 H 07/06/20 02:06 Resp 20 07/06/20 02:06 BP 140/75 07/06/20 02:06 Pulse Ox 100 07/06/20 02:06 - Orders/Labs/Meds Orders: Active Orders 24 hr Category Date Time Status Admission Status [Patient Status] [ADT] Routine ADT 07/06/20 03:28 Active Ambulate [RC] PER UNIT ROUTINE Care 07/06/20 03:35 Active Bedrest Bedside Commode [RC] ASDIRECTED Care 07/06/20 03:32 Active Cardiac Monitoring [RC] .As Directed Care 07/06/20 03:28 Active EKG Documentation Completion [RC] ASDIRECTED Care 07/05/20 23:02 Active Ken Catheter Insertion [Insert Urinary Catheter] [OM. Care 07/06/20 03:15 Ordered PC] Q24H Height and Weight [RC] DAILY Care 07/06/20 03:32 Active Intake and Output [RC] QSHIFT Care 07/06/20 03:35 Active Oxygen Therapy [RC] PRN Care 07/06/20 03:32 Active Pulse Oximetry [RC] PRN Care 07/06/20 03:35 Active Up With Assistance [RC] ASDIRECTED Care 07/06/20 03:32 Active Urinary Catheter Assessment [RC] QSHIFT Care 07/06/20 03:05 Active VTE/DVT Education [RC] Per Unit Routine Care 07/06/20 03:32 Active Vital Signs [RC] Q4H Care 07/06/20 03:32 Active Clear Liquid Diet [DIET] Diet 07/06/20 Breakfast Active Abdomen Pelvis w Cont [CT] Stat Exams 07/06/20 01:39 Taken Chest 1V Frontal [CR] Stat Exams 07/05/20 23:00 Taken BASIC METABOLIC PANEL,BMP [CHEM] Routine Lab 07/06/20 08:00 Ordered CBC WITH AUTO DIFF [HEME] Routine Lab 07/06/20 08:00 Ordered LACTIC ACID [CHEM] Stat Lab 07/06/20 03:27 Ordered LIPASE [CHEM] Stat Lab 07/06/20 08:00 Ordered UA W/MICROSCOPIC [URIN] Stat Lab 07/06/20 03:46 Ordered Acetaminophen [TylenoL] Med 07/06/20 03:32 Ordered 650 mg PO Q4H PRN Ondansetron [Zofran] Med 07/06/20 03:32 Ordered 4 mg IV Q6H PRN Pantoprazole [ProTONIX IV] Med 07/06/20 03:45 Ordered 40 mg IVPUSH Q12H Sodium Chloride 0.9% [Normal Saline] 1,000 ml Med 07/06/20 03:10 Active IV .BOLUS Sodium Chloride 0.9% [Normal Saline] 1,000 ml Med 07/05/20 23:15 Active IV ASDIRECTED Sodium Chloride 0.9% [Saline Flush] Med 07/05/20 23:00 Active 10 ml FLUSH ASDIRECTED PRN Peripheral IV Insertion Adult [OM.PC] Routine Oth 07/05/20 23:00 Ordered Resuscitation Status Routine Resus Stat 07/06/20 03:32 Ordered EKG 12 Lead [EK] Routine Ther 07/05/20 23:00 Ordered Medication Orders Acetaminophen (Tylenol) 650 mg PO Q4H PRN PRN Reason: Pain (Mild 1-3)/fever Sodium Chloride (Normal Saline) 1,000 mls @ 100 mls/hr IV ASDIRECTED ROMEL Last Admin: 07/06/20 03:20 Dose: 100 mls/hr Documented by: DRAPJUL Sodium Chloride (Normal Saline) 1,000 mls @ 999 mls/hr IV .BOLUS ONE Stop: 07/06/20 04:10 Last Admin: 07/06/20 03:28 Dose: 999 mls/hr Documented by: RENALDO Thiamine HCl 100 mg/ Sodium (Chloride) 51 mls @ 100 mls/hr IV DAILY ROMEL Lorazepam (Ativan) 0 mg IV ASDIRECTED ROMEL; Protocol Lorazepam (Ativan) 0 mg PO ASDIRECTED ROMEL; Protocol Ondansetron HCl (Zofran) 4 mg IV Q6H PRN PRN Reason: Nausea/Vomiting Pantoprazole Sodium (Protonix Iv) 40 mg IVPUSH Q12H ROMEL Pantoprazole Sodium (Protonix Iv) 40 mg IVPUSH ONETIME ONE Stop: 07/06/20 04:01 Sodium Chloride (Saline Flush) 10 ml FLUSH ASDIRECTED PRN PRN Reason: Keep Vein Open Last Admin: 07/06/20 00:15 Dose: 10 ml Documented by: RENALDO Labs: Laboratory Tests 07/05/20 07/05/20 07/05/20 Range/Units 23:10 23:20 23:20 WBC 11.4 H (3.0-10.3) x10-3/uL RBC 3.71 (3.60-5.20) x10(6)uL Hgb 8.2 L (11.4-15.5) g/dL Hct 29.0 L (34.2-48.2) % MCV 78.1 (76.7-100.5) fL MCH 22.1 L (23.9-33.9) pg MCHC 28.4 L (31.9-34.8) g/dL RDW 21.8 H (12.3-16.5) % Plt Count 227 (151-488) x10(3)uL MPV 7.0 L (7.1-12.4) fL Neut % (Auto) 87.8 H (30.8-76.2) % Lymph % (Auto) 3.0 L (18.4-52.1) % [place] % (Auto) 8.6 (4.4-15.7) % Eos % (Auto) 0.0 L (0.6-8.1) % Baso % (Auto) 0.6 (0.2-1.5) % Neut # (Auto) 10.0 H (1.5-6.3) x10-3/uL Lymph # (Auto) 0.3 L (1.0-4.4) x10-3/uL [place] # (Auto) 1.0 (0.3-1.0) x10-3/uL Eos # (Auto) 0.0 (0.0-0.8) x10-3/uL Baso # (Auto) 0.1 (0.0-0.1) x10-3/uL POC VBG pH (7.32-7.43) pH Units POC VBG pCO2 (41-51) mmHg POC VBG HCO3 (21-29) mmol/L VBG Base Excess (-2-3) mmol/L O2 Delivery Device Sodium 137 (135-145) mmol/L Potassium 3.7 (3.5-5.3) mmol/L Chloride 96 L (100-110) mmol/L Carbon Dioxide 8 L* (21-32) mmol/L BUN 23 H D (7-18) mg/dL Creatinine 1.0 (0.55-1.02) mg/dL Est Cr Clr Drug Dosing 38.15 mL/min Estimated GFR (MDRD) 56 L (>60) BUN/Creatinine Ratio 23.0 H (9-20) Glucose 86 (80-116) mg/dL Lactic Acid (0.4-2.0) mmol/L Calcium 8.2 L (8.6-10.2) mg/dL Magnesium 2.3 (1.8-2.5) mg/dL Total Bilirubin 0.6 (0.1-1.3) mg/dL AST 63 H D (5-25) IU/L ALT 30 D (12-36) U/L Alkaline Phosphatase 102 (56-112) IU/L Troponin I (4.0-60.3) pg/mL Total Protein 8.0 (6.0-8.0) g/dL Albumin 3.6 (3.2-4.6) g/dL Globulin 4.4 g/dL Albumin/Globulin Ratio 0.8 Lipase (73-393) U/L Ethyl Alcohol (<0.03) % SARS-CoV-2 RNA (DAMON) Negative (NEGATIVE) 07/05/20 07/05/20 07/05/20 Range/Units 23:20 23:20 23:20 WBC (3.0-10.3) x10-3/uL RBC (3.60-5.20) x10(6)uL Hgb (11.4-15.5) g/dL Hct (34.2-48.2) % MCV (76.7-100.5) fL MCH (23.9-33.9) pg MCHC (31.9-34.8) g/dL RDW (12.3-16.5) % Plt Count (151-488) x10(3)uL MPV (7.1-12.4) fL Neut % (Auto) (30.8-76.2) % Lymph % (Auto) (18.4-52.1) % [place] % (Auto) (4.4-15.7) % Eos % (Auto) (0.6-8.1) % Baso % (Auto) (0.2-1.5) % Neut # (Auto) (1.5-6.3) x10-3/uL Lymph # (Auto) (1.0-4.4) x10-3/uL [place] # (Auto) (0.3-1.0) x10-3/uL Eos # (Auto) (0.0-0.8) x10-3/uL Baso # (Auto) (0.0-0.1) x10-3/uL POC VBG pH (7.32-7.43) pH Units POC VBG pCO2 (41-51) mmHg POC VBG HCO3 (21-29) mmol/L VBG Base Excess (-2-3) mmol/L O2 Delivery Device Sodium (135-145) mmol/L Potassium (3.5-5.3) mmol/L Chloride (100-110) mmol/L Carbon Dioxide (21-32) mmol/L BUN (7-18) mg/dL Creatinine (0.55-1.02) mg/dL Est Cr Clr Drug Dosing mL/min Estimated GFR (MDRD) (>60) BUN/Creatinine Ratio (9-20) Glucose (80-116) mg/dL Lactic Acid 5.6 H* (0.4-2.0) mmol/L Calcium (8.6-10.2) mg/dL Magnesium (1.8-2.5) mg/dL Total Bilirubin (0.1-1.3) mg/dL AST (5-25) IU/L ALT (12-36) U/L Alkaline Phosphatase (56-112) IU/L Troponin I 8.4 (4.0-60.3) pg/mL Total Protein (6.0-8.0) g/dL Albumin (3.2-4.6) g/dL Globulin g/dL Albumin/Globulin Ratio Lipase 547 H (73-393) U/L Ethyl Alcohol 0.14 H (<0.03) % SARS-CoV-2 RNA (DAMON) (NEGATIVE) 07/06/20 Range/Units 00:10 WBC (3.0-10.3) x10-3/uL RBC (3.60-5.20) x10(6)uL Hgb (11.4-15.5) g/dL Hct (34.2-48.2) % MCV (76.7-100.5) fL MCH (23.9-33.9) pg MCHC (31.9-34.8) g/dL RDW (12.3-16.5) % Plt Count (151-488) x10(3)uL MPV (7.1-12.4) fL Neut % (Auto) (30.8-76.2) % Lymph % (Auto) (18.4-52.1) % [place] % (Auto) (4.4-15.7) % Eos % (Auto) (0.6-8.1) % Baso % (Auto) (0.2-1.5) % Neut # (Auto) (1.5-6.3) x10-3/uL Lymph # (Auto) (1.0-4.4) x10-3/uL [place] # (Auto) (0.3-1.0) x10-3/uL Eos # (Auto) (0.0-0.8) x10-3/uL Baso # (Auto) (0.0-0.1) x10-3/uL POC VBG pH 7.32 (7.32-7.43) pH Units POC VBG pCO2 16 L (41-51) mmHg POC VBG HCO3 9 L (21-29) mmol/L VBG Base Excess -18 L (-2-3) mmol/L O2 Delivery Device Room air Sodium (135-145) mmol/L Potassium (3.5-5.3) mmol/L Chloride (100-110) mmol/L Carbon Dioxide (21-32) mmol/L BUN (7-18) mg/dL Creatinine (0.55-1.02) mg/dL Est Cr Clr Drug Dosing mL/min Estimated GFR (MDRD) (>60) BUN/Creatinine Ratio (9-20) Glucose (80-116) mg/dL Lactic Acid (0.4-2.0) mmol/L Calcium (8.6-10.2) mg/dL Magnesium (1.8-2.5) mg/dL Total Bilirubin (0.1-1.3) mg/dL AST (5-25) IU/L ALT (12-36) U/L Alkaline Phosphatase (56-112) IU/L Troponin I (4.0-60.3) pg/mL Total Protein (6.0-8.0) g/dL Albumin (3.2-4.6) g/dL Globulin g/dL Albumin/Globulin Ratio Lipase (73-393) U/L Ethyl Alcohol (<0.03) % SARS-CoV-2 RNA (DAMON) (NEGATIVE) Meds: Medications Generic Name Dose Route Start Last Admin Trade Name Freq PRN Reason Stop Dose Admin Acetaminophen 650 mg 07/06/20 03:32 Tylenol PO Q4H PRN Pain (Mild 1-3)/fever Sodium Chloride 1,000 mls @ 100 mls/hr 07/05/20 23:15 07/06/20 03:20 Normal Saline IV 100 mls/hr ASDIRECTED ROMEL Administration Sodium Chloride 1,000 mls @ 999 mls/hr 07/06/20 03:10 07/06/20 03:28 Normal Saline IV 07/06/20 04:10 999 mls/hr .BOLUS ONE Administration Thiamine HCl 100 mg/ Sodium 51 mls @ 100 mls/hr 07/06/20 09:00 Chloride IV DAILY ROMEL Lorazepam 0 mg 07/06/20 03:45 Ativan IV ASDIRECTED ROMEL Protocol Lorazepam 0 mg 07/06/20 04:00 Ativan PO ASDIRECTED ROMEL Protocol Ondansetron HCl 4 mg 07/06/20 03:32 Zofran IV Q6H PRN Nausea/Vomiting Pantoprazole Sodium 40 mg 07/06/20 03:45 Protonix Iv IVPUSH Q12H ROMEL Pantoprazole Sodium 40 mg 07/06/20 04:00 Protonix Iv IVPUSH 07/06/20 04:01 ONETIME ONE Sodium Chloride 10 ml 07/05/20 23:00 07/06/20 00:15 Saline Flush FLUSH 10 ml ASDIRECTED PRN Administration Keep Vein Open Discontinued Medications Generic Name Dose Route Start Last Admin Trade Name Freq PRN Reason Stop Dose Admin Diphenhydramine HCl 25 mg 07/06/20 01:24 07/06/20 01:51 Benadryl IVPUSH 07/06/20 01:25 25 mg ONETIME ONE Administration Folic Acid 1 mg 07/05/20 23:58 07/06/20 03:35 Folic Acid IV 07/05/20 23:59 1 mg ONETIME ONE Administration Sodium Chloride 1,000 mls @ 999 mls/hr 07/05/20 23:03 07/06/20 00:17 Normal Saline IV 07/06/20 00:03 999 mls/hr .BOLUS ONE Administration Iopamidol 50 ml 07/06/20 01:56 Isovue-370 (76%) IV 07/06/20 01:57 . DIRECTED ONE Ondansetron HCl 4 mg 07/05/20 23:03 07/06/20 00:18 Zofran IVPUSH 07/05/20 23:04 4 mg ONETIME ONE Administration Prochlorperazine Edisylate 10 mg 07/06/20 01:24 07/06/20 01:52 Compazine IVPUSH 07/06/20 01:25 10 mg ONETIME ONE Administration Thiamine HCl 100 mg 07/05/20 23:57 07/06/20 00:17 Vitamin B-1 IVPUSH 07/05/20 23:58 100 mg ONETIME ONE Administration - Radiology Interpretation Free Text/Narrative:: Portable chest x-ray showed no acute disease. CT scan of the abdomen and pelvis showed mild wall thickening in segments of the right and left colon that could be nonspecific segmental colitis. There was mild to moderate rectal stool impaction. There was a hepatic steatosis. There was gallbladder sludge. This was per the [facility] radiologist. The study was without IV contrast secondary to technical difficulties with the IV. - Re-Assessments/Exams Free Text/Narrative Re-Assessment/Exam: 07/06/20 00:30: The patient's blood tests show persisting anemia but unchanged from the most recent visits. He does have a bicarbonate of 8 and lactic acidosis with a lactic acid 5.6. Her blood alcohol is 140 mg/dL. Her creatinine is 1.1. An EKG was performed and shows no STEMI pattern and in fact it is unchanged from an EKG in January of this year. A rapid Covid test has come back negative. She appears to be quite dehydrated I am currently given the patient normal saline 1 L as a bolus. She has also been given Zofran IV. I have also given the patient thiamine and folate IV. I will continue IV fluid hydration/resuscitation with normal saline. With her metabolic acidosis with elevated lactate, she will need ongoing fluid resuscitation, rehydration. She'll need admission to the hospital for this. I discussed this with the patient and she would be in agreement with this plan. I will initially placed the patient on observation as it is unclear whether she will need a greater then 2 midnight hospital stay. I will place admission orders and the care the patient will go to Dr. Vicente at 7 AM on 07/06/2020. 07/06/20 01:35: Chest x-ray was normal. The patient is having ongoing he was some dry heaving. She also complains of diffuse abdominal cramping. Her abdomen remains soft. Bowel sounds are present. There is no rigidity. But it is quite tender to palpation. She does have the lactic acidosis. I will give the patient Compazine 10 mg and Benadryl 25 mg IV. IV fluid resuscitation with normal saline is ongoing. I will also send the patient for CT scan of her abdomen and pelvis with IV contrast. 07/06/20 03:35: CT scan of the abdomen and pelvis was performed. There was no IV contrast secondary to problems with the IV during the contrast bolus. It showed possibly mild colitis. There were no other acute abnormalities. Her bladder was somewhat distended and a Ken catheter was placed with greater than 500 L of urine. Her pain is much improved and almost gone. She feels much better after the IV Compazine and Benadryl. Her lipase was somewhat elevated and she appears to have some pancreatitis as well as alcoholic ketoacidosis. The plan will be as above. I will admit the patient for IV fluid hydration and continued close monitoring. Departure - Departure Time of Disposition: 03:45 Disposition: Refer to Observation Condition: Fair (Stable) Clinical Impression: Metabolic acidosis, Alcohol abuse Pancreatitis Qualifiers: Chronicity: acute Pancreatitis type: alcohol induced Acute pancreatitis complication: unspecified Qualified Code(s): K85.20 - Alcohol induced acute pancreatitis without necrosis or infection Alcohol intoxication Qualifiers: Complication of substance-induced condition: uncomplicated Qualified Code(s): F10.920 - Alcohol use, unspecified with intoxication, uncomplicated - Discharge Information Sepsis Event Note (ED) - Focused Exam Vital Signs: Vital Signs Temp Pulse Resp BP Pulse Ox 07/06/20 02:06 36.8 C 102 H 20 140/75 100 07/05/20 22:55 36.7 C 115 H 20 156/74 H 98 - My Orders Last 24 Hours: My Active Orders 07/05/20 23:00 Chest 1V Frontal [CR] Stat Sodium Chloride 0.9% [Saline Flush] 10 ml FLUSH ASDIRECTED PRN Peripheral IV Insertion Adult [OM.PC] Routine EKG 12 Lead [EK] Routine 07/05/20 23:02 EKG Documentation Completion [RC] ASDIRECTED 07/05/20 23:15 Sodium Chloride 0.9% [Normal Saline] 1,000 ml IV ASDIRECTED 07/06/20 01:39 Abdomen Pelvis w Cont [CT] Stat 07/06/20 03:05 Urinary Catheter Assessment [RC] QSHIFT 07/06/20 03:10 Sodium Chloride 0.9% [Normal Saline] 1,000 ml IV .BOLUS 07/06/20 03:15 Ken Catheter Insertion [Insert Urinary Catheter] [OM.PC] Q24H 07/06/20 03:27 LACTIC ACID [CHEM] Stat 07/06/20 03:28 Admission Status [Patient Status] [ADT] Routine Cardiac Monitoring [RC] .As Directed 07/06/20 03:32 Bedrest Bedside Commode [RC] ASDIRECTED Height and Weight [RC] DAILY Oxygen Therapy [RC] PRN Up With Assistance [RC] ASDIRECTED VTE/DVT Education [RC] Per Unit Routine Vital Signs [RC] Q4H Acetaminophen [TylenoL] 650 mg PO Q4H PRN Ondansetron [Zofran] 4 mg IV Q6H PRN Resuscitation Status Routine 07/06/20 03:35 Ambulate [RC] PER UNIT ROUTINE Intake and Output [RC] QSHIFT Pulse Oximetry [RC] PRN 07/06/20 03:45 Pantoprazole [ProTONIX IV] 40 mg IVPUSH Q12H 07/06/20 03:46 UA W/MICROSCOPIC [URIN] Stat 07/06/20 Breakfast Clear Liquid Diet [DIET] 07/06/20 08:00 BASIC METABOLIC PANEL,BMP [CHEM] Routine CBC WITH AUTO DIFF [HEME] Routine LIPASE [CHEM] Stat - Assessment/Plan Last 24 Hours: My Active Orders 07/05/20 23:00 Chest 1V Frontal [CR] Stat Sodium Chloride 0.9% [Saline Flush] 10 ml FLUSH ASDIRECTED PRN Peripheral IV Insertion Adult [OM.PC] Routine EKG 12 Lead [EK] Routine 07/05/20 23:02 EKG Documentation Completion [RC] ASDIRECTED 07/05/20 23:15 Sodium Chloride 0.9% [Normal Saline] 1,000 ml IV ASDIRECTED 07/06/20 01:39 Abdomen Pelvis w Cont [CT] Stat 07/06/20 03:05 Urinary Catheter Assessment [RC] QSHIFT 07/06/20 03:10 Sodium Chloride 0.9% [Normal Saline] 1,000 ml IV .BOLUS 07/06/20 03:15 Ken Catheter Insertion [Insert Urinary Catheter] [OM.PC] Q24H 07/06/20 03:27 LACTIC ACID [CHEM] Stat 07/06/20 03:28 Admission Status [Patient Status] [ADT] Routine Cardiac Monitoring [RC] .As Directed 07/06/20 03:32 Bedrest Bedside Commode [RC] ASDIRECTED Height and Weight [RC] DAILY Oxygen Therapy [RC] PRN Up With Assistance [RC] ASDIRECTED VTE/DVT Education [RC] Per Unit Routine Vital Signs [RC] Q4H Acetaminophen [TylenoL] 650 mg PO Q4H PRN Ondansetron [Zofran] 4 mg IV Q6H PRN Resuscitation Status Routine 07/06/20 03:35 Ambulate [RC] PER UNIT ROUTINE Intake and Output [RC] QSHIFT Pulse Oximetry [RC] PRN 07/06/20 03:45 Pantoprazole [ProTONIX IV] 40 mg IVPUSH Q12H 07/06/20 03:46 UA W/MICROSCOPIC [URIN] Stat 07/06/20 Breakfast Clear Liquid Diet [DIET] 07/06/20 08:00 BASIC METABOLIC PANEL,BMP [CHEM] Routine CBC WITH AUTO DIFF [HEME] Routine LIPASE [CHEM] Stat
[2020-07-05] MEDS ORDERED: Thiamine 200 MG/2 ML MDV IVPUSH ONE (23:57)
[2020-07-05] MEDS ORDERED: Folic Acid 50 MG/10 ML MDV IV ONE (23:58)
[2020-07-06 00:29] LABS: BASE EXCESS VENOUS,POC -18 mmol/L (-2-3); HCO3 VENOUS,POC 9 mmol/L (21-29); PCO2 VENOUS,POC 16 mmHg (41-51); PH VENOUS,POC 7.32 pH Units (7.32-7.43)
[2020-07-06] MEDS ORDERED: Prochlorperazine 10 MG/2 ML SDV IVPUSH ONE (01:24)
[2020-07-06] MEDS ORDERED: diphenhydrAMINE 50 MG/ML SDV IVPUSH ONE (01:24)
[2020-07-06] MEDS ORDERED: Iopamidol 755 Mg/ML 100 ML Bottle IV ONE (01:56)
[2020-07-06] MEDS ORDERED: Sodium Chloride 0.9% 1,000 ML IV ONE (03:10)
[2020-07-06] MEDS: Sodium Chloride 0.9% 1,000 ML IV SCH ×3 (03:20→16:51)
[2020-07-06] MEDS ORDERED: Ondansetron 4 MG/2 ML SDV IV PRN (03:32)
[2020-07-06] MEDS ORDERED: LORazepam 2 MG/ML SDV IV SCH (03:45)
[2020-07-06] MEDS ORDERED: Pantoprazole 40 MG Vial IVPUSH ONE (04:00)
[2020-07-06] MEDS ORDERED: LORazepam 1 MG Tab PO SCH (04:00)
[2020-07-06] MEDS: Thiamine 100 MG in Sodium Chloride 0.9% 50 ML IV SCH (08:31)
[2020-07-06] MEDS: Acetaminophen 325 MG Tab PO PRN ×2 (11:18→16:50)
[2020-07-06] MEDS: Pantoprazole 40 MG Vial IVPUSH SCH ×2 (11:30→22:51)
--- NOTE | 2020-07-06 12:24 | HP ---
ADMISSION DATE: 07/06/2020 CHIEF COMPLAINT: Acute alcohol intoxication, abdominal pain, vomiting. HISTORY OF PRESENT ILLNESS: Zuleika Rosado is a 64-year-old single female who was brought to [facility] on the evening of 07/05/2020. She was seen by Dr. Gonsalo Sherman, presents with a long-standing history of alcohol use and misuse, frequent ER visits, complicated vomiting, and acidosis. She has had a recent increased intake of alcohol. By report, drinking vodka. There were also several bottles of Listerine likely taken as well. She can drink early in the morning. Increasing shortness of breath. No complicated cough. No congestion. No sore throat. She began to vomit intermittently. Drinking liquids including alcohol in between episodes. Shortness of breath, necessitating intervention and care, evaluation, and acute care hospital stay, and admission to the hospital as appropriate. MEDICATIONS: Daily medications include: 1. 81 mg baby aspirin 1 p.o. daily, CAD prevention. 2. Folic acid 1 mg 1 p.o. daily, alcohol. 3. Glipizide 2.5 mg 1 p.o. b.i.d., NIDDM. 4. Metformin 500 mg b.i.d., NIDDM. 5. Remeron 30 mg p.o. at bedtime, sleep enhancement. 6. Multivitamin. 7. Zofran 4 mg sublingual p.r.n. nausea, vomiting. 8. Pantoprazole 40 mg 1 p.o. daily, GERD. 9. Paroxetine 20 mg 1 p.o. daily, mood stabilizer. 10.Potassium chloride 10 mEq 1 p.o. daily, hypokalemia. 11.Spironolactone 25 mg 1 p.o. daily, blood pressure. 12.Sucralfate 1 g q.i.d., gastritis. 13.Thiamine 100 mg 1 p.o. daily. ALLERGIES: She is allergic to sulfa with rash. PAST MEDICAL HISTORY: Significant by her report, no operative procedures, hospitalizations, unusual childhood diseases, major injuries, or fractures. Chronic illness including alcoholism, hypertension, diabetes mellitus, and describes history of a "brain injury," too much sodium given during hospitalization with a lengthy rehab. SOCIAL HISTORY: Single, never . Lives alone in an apartment. Has lived in the [place] most of her adult working life. 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 Three-quarter to 1 pack per day smoker, intermittent alcohol misuse or overuse. No illicit drug use. FAMILY HISTORY: Dad and mom . 1 living sister. 1 living brother. Positive family history of diabetes. No early heart disease. REVIEW OF SYSTEMS: CONSTITUTIONAL: Feeling a little better this morning. EYES: Sees well. EARS: Difficult hearing in crowds. Mild tinnitus. OROPHARYNX: Upper and lower plates. GI: Please see HPI. RESPIRATORY: Please see HPI. CV: Denies chest pain, palpitations, syncope. SKIN: No lesions, eruptions, or moles. ENDOCRINE: No excessive thirst, urination. She is diabetic. PSYCHIATRIC: History of depression. PHYSICAL EXAMINATION: VITAL SIGNS: 36.7, 104, 140/63, 88, mean blood pressure 20, and 100% oximetry. GENERAL: Young lady, cooperative, conversant. NEUROLOGIC: Speech was a little convoluted and distracted. She is oriented to time, place, and person. HEENT: Funduscopic benign. Bright TMs. Clear nasal discharge. Mouth: Oropharynx clear. Dentures in place. Tongue midline. NECK: Benign. Thyroid small. CHEST: Decreased breath sounds. Coarse rhonchi, clear with cough. HEART: Distant heart sounds. Occasional ectopy. ABDOMEN: A bit distended. Tympanitic. Good bowel sounds. No palpable tenderness. No surgical wounds. 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 PELVIC: Declined. RECTAL: Declined. EXTREMITIES: Well perfused. NEUROMUSCULAR: Intact. LABORATORY STUDIES: White count 11,400, hemoglobin 8.9. Blood gases 7.32. Electrolytes revealed lactic acid 5.6, repeat 4.1. Mildly elevated AST, lipase 547, repeat 623. Urinalysis noted 2+ ketones, moderate blood, alcohol 0.14. SARS negative. ASSESSMENT: Acute alcohol intoxication with gastrointestinal related issues, SECONDARY DIAGNOSIS: Multiple issues. PLAN: We will admit for treatment, IV fluids, aggressive hydration, anxiolytics as appropriate, maintenance medications as appropriate. /[id number] LULU/ROMARIO
[2020-07-06] MEDS: Mirtazapine 30 MG Tab PO SCH (22:51)
[2020-07-07] MEDS: Sodium Chloride 0.9% 1,000 ML IV SCH (03:12)
[2020-07-07] MEDS: Acetaminophen 325 MG Tab PO PRN (09:16)
[2020-07-07] MEDS: PARoxetine 20 MG Tab PO SCH (09:18)
[2020-07-07] MEDS ORDERED: Sodium Chloride 0.9% 250 ML IV SCH ×2 (10:15)
[2020-07-07] MEDS ORDERED: Enoxaparin 30 MG/0.3 ML Syringe SUBCUT SCH ×2 (10:15→11:00)
--- NOTE | 2020-07-07 10:39 | PN ---
DATE SEEN: 07/07/2020 SUBJECTIVE: Zuleika Rosado is a 64-year-old female, admitted with complicated abdominal pain, diarrhea, nausea and vomiting, alcohol-related issues, and comorbid ongoing medical issue. Hemoglobin fell from 8.2 to 7.1 with microcytic indices. 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 Continues to feel better. Nausea is improving. Abdominal pain persists. CT of abdomen revealed no major pathology. LABORATORY STUDIES: Hemoglobin 7.1, microcytic indices; white count 7800; platelets 124,000. Blood sugar 124, 96, and 132. PHYSICAL EXAMINATION: VITAL SIGNS: 47 kg, 36.9 degrees Fahrenheit, 77 is the pulse, 143/71, 18, and 98. GENERAL: Appears comfortable. Speech was a bit forced. NECK: Benign. Thyroid small. CHEST: Clear in all lung mora. HEART: No ectopy or murmur of significance. ABDOMEN: A little tender and epigastric pain. ASSESSMENT: 1. Complicated nausea and vomiting, likely alcoholic gastritis. 2. Anemia, likely dietary deficient and alcohol-induced bone marrow pathology. PLAN: We will transfuse 2 units of blood, we will increase her diet, discontinue the Ken, add some oral pain medications. Recheck hemoglobin in the morning. Lovenox on board. Ativan on board. /[id number] LULU/ROMARIO
[2020-07-07] MEDS ORDERED: Ondansetron 4 MG Tab.DIS PO PRN (10:57)
[2020-07-07] MEDS: traMADol 50 MG Tab PO PRN ×3 (11:29→23:27)
[2020-07-07] MEDS: Ferrous Sulfate 325 MG Tab PO SCH ×2 (11:29→17:27)
[2020-07-07] MEDS: Thiamine 100 MG in Sodium Chloride 0.9% 50 ML IV SCH (11:30)
[2020-07-07] MEDS: Enoxaparin 40 MG/0.4 ML Syringe SUBCUT SCH (11:33)
[2020-07-07] MEDS ORDERED: Sucralfate 1 GM Tab PO SCH (13:00)
[2020-07-07] MEDS: metFORMIN 500 MG Tab.ER PO SCH (17:27)
[2020-07-07] MEDS ORDERED: ACAMPROSATE 333 MG PO SCH (21:00)
[2020-07-07] MEDS: Mirtazapine 30 MG Tab PO SCH (21:13)
[2020-07-08] MEDS: traMADol 50 MG Tab PO PRN ×3 (08:28→20:47)
[2020-07-08] MEDS: metFORMIN 500 MG Tab.ER PO SCH ×2 (08:40→17:21)
[2020-07-08] MEDS: PARoxetine 20 MG Tab PO SCH (08:41)
[2020-07-08] MEDS: Ferrous Sulfate 325 MG Tab PO SCH ×4 (08:41→17:33)
[2020-07-08] MEDS: Spironolactone 25 MG Tab PO SCH (08:41)
[2020-07-08] MEDS: Pantoprazole 40 MG Tab.CR PO SCH (08:41)
[2020-07-08] MEDS: Enoxaparin 40 MG/0.4 ML Syringe SUBCUT SCH (08:42)
[2020-07-08] MEDS: glipiZIDE 5 MG Tab PO SCH (08:42)
[2020-07-08] MEDS: Thiamine 100 MG Tab PO SCH (08:42)
[2020-07-08] MEDS ORDERED: Potassium Chloride 10 MEQ Tab.ER PO SCH (09:00)
--- NOTE | 2020-07-08 10:56 | PN ---
DATE SEEN: 07/08/2020 SUBJECTIVE: Zuleika Rosado is a 64-year-old female admitted with acute GI symptoms, alcohol intoxication, and complicated anemia. Transfuse blood was recommended. Hemoglobin 7.1. IV access inadequate. Hemoglobin has risen from 7.1 to 7.3, intolerant of iron pills. Serum iron, TIBC, and ferritin are pending, resource lab. Requests nicotine patch today. She was doing well. Little nauseated. Weak and tired. OBJECTIVE: VITAL SIGNS: 36.8, 154/84, 18, and 99. GENERAL: Appears comfortable. HEENT: Mouth and oropharynx clear. NECK: Benign. Thyroid small. CHEST: Clear in all lung mora. HEART: No ectopy or murmur. ABDOMEN: Benign. LABORATORY STUDIES: Blood sugar is 142 and 100 this morning. Hemoglobin 7.3, hematocrit 23.9, microcytic indices. ASSESSMENT: 1. Complicated nausea and vomiting, resolved. 2. Acute alcohol intake, chronic alcohol use. 3. Anemia, iron deficiency versus alcohol bone marrow toxicity. PLAN: Consultation Dr. Arnie Quiroga. Hopefully can do it today, otherwise has an outpatient. We will observe overnight. Plan is to discharge home tomorrow. We will stop her iron pills, in the meantime intolerant. /[id number] LULU/ROMARIO
[2020-07-08] MEDS: Nicotine 14 MG/24 Hr Patch TRDERM SCH (11:27)
--- NOTE | 2020-07-08 13:55 | PCM.CONS ---
H&P History of Present Illness - General Date of Service: 07/08/20 Admit Problem/Dx: Admission Diagnosis/Problem Admission Diagnosis/Problem Metabolic acidosis Source of Information: Patient, Old Records - History of Present Illness Initial Comments - Free Text/Narative: 64 yo wf who has had multiple admissions for abd pain and anemia. She has had a hx of etoh abuse which essentially appears to be episodes of binge drinking apparently due to her social situation where she spends a lot of time alone. Last drink was a month ago. Admitted with some shortness of breath as well as anemia. They have been unable to obtained adequate IV access for transfusion. He sx appear to be better controlled than when she was admitted. A Port has been requested. ABDOMEN Pain Score (Numeric/FACES): 9 - Related Data Allergies/Adverse Reactions: Allergies Allergy/AdvReac Type Severity Reaction Status Date / Time Sulfa (Sulfonamide Allergy Rash Verified 05/12/20 14:18 Antibiotics) Home Medications: Home Meds Multivitamin [Multi-Vitamin Daily] 1 tab PO DAILY 10/09/13 [History] Aspirin 81 mg PO DAILY 07/26/18 [History] Spironolactone [Aldactone] 25 mg PO DAILY 03/17/19 [History] Folic Acid 1 mg PO DAILY 05/03/19 [History] Calcium Carb, Citrate/Vit D3 [Citracal + D ER] 1 tab PO BID 12/20/19 [History] Mirtazapine [Remeron] 30 mg PO BEDTIME #30 tablet 01/01/20 [Rx] Thiamine [Vitamin B-1] 100 mg PO DAILY #30 tablet 01/01/20 [Rx] PARoxetine [Paxil] 20 mg PO DAILY 05/13/20 [History] Acamprosate [Campral] 333 mg PO BID 06/17/20 [History] Ondansetron [Zofran ODT] 4 mg PO Q6H PRN 06/17/20 [History] Pantoprazole Sodium [Protonix] 40 mg PO DAILY 06/17/20 [History] Potassium Chloride 10 meq PO DAILY 06/17/20 [History] glipiZIDE [Glucotrol] 2.5 mg PO DAILY 06/17/20 [History] Sucralfate [Carafate] 1 gm PO QID #120 tablet 06/19/20 [Rx] Naproxen Sodium [Aleve] 220 mg PO Q12H PRN 07/08/20 [History] Rosuvastatin [Crestor] 10 mg PO DAILY 07/08/20 [History] metFORMIN [Glucophage] 500 mg PO BIDMEALS 07/08/20 [History] Past Medical History HEENT History: Reports: Cataract, Impaired Vision Cardiovascular History: Reports: Hypertension Other Cardiovascular History: States has irregular HR at times. Respiratory History: Reports: Bronchitis, Recurrent, Pneumonia, Recurrent Other Respiratory History: Tobacco use. Gastrointestinal History: Reports: GERD, Pancreatitis, PUD Other Gastrointestinal History: "Prolapsed colon". 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 Ataxia. Neurological History: Reports: Other (See Below) Other Neuro History: Episodes of DT's. Movement disorder. Psychiatric History: Reports: Addiction, Anxiety, Depression, Other (See Below) Other Psychiatric History: Drug and alcohol addiction. Endocrine/Metabolic History: Reports: Osteoporosis Hematologic History: Reports: Anemia, Blood Transfusion(s), Other (See Below) Other Hematologic History: Leukopenia, thrombocytopenia. Immunologic History: Reports: None Oncologic (Cancer) History: Reports: None Dermatologic History: Reports: None - Infectious Disease History Infectious Disease History: Reports: Chicken Pox, Measles, Mumps - Past Surgical History Head Surgeries/Procedures: Reports: None HEENT Surgical History: Reports: None Cardiovascular Surgical History: Reports: None Respiratory Surgical History: Reports: None GI Surgical History: Reports: Colonoscopy, EGD, Other (See Below) Other GI Surgeries/Procedures: History of feeding tube. Female Surgical History: Reports: None Endocrine Surgical History: Reports: None Neurological Surgical History: Reports: None Musculoskeletal Surgical History: Reports: Other (See Below) Other Musculoskeletal Surgeries/Procedures:: Toe surgery. Oncologic Surgical History: Reports: None Dermatological Surgical History: Reports: None Social & Family History - Family History Family Medical History: No Pertinent Family History - Tobacco Use Tobacco Use Status *Q: Current Every Day Tobacco User Years of Tobacco use: 45 Packs/Tins Daily: 1 - Caffeine Use Caffeine Use: Reports: None Other Caffeine Use: 2-3 CUPS DAILY - Alcohol Use Number of Drinks Per Day: 6 Time of Last Drink: 18:00 - Recreational Drug Use Recreational Drug Use: No - Living Situation & Occupation Living situation: Reports: Alone Occupation: Disabled H&P Review of Systems - Review of Systems: Review Of Systems: See Below General: Reports: Fatigue Pulmonary: Reports: Shortness of Breath Cardiovascular: Reports: No Symptoms Gastrointestinal: Reports: No Symptoms Skin: Reports: No Symptoms Exam - Exam Exam: See Below - Vital Signs Vital Signs: Last Vital Signs Temp 98.2 F 07/08/20 08:00 Pulse 92 07/08/20 08:00 Resp 18 07/08/20 08:00 BP 154/84 H 07/08/20 08:00 Pulse Ox 99 07/08/20 08:00 Weight: 50.167 kg - Exam General: Alert, Oriented, Cooperative. No: Mild Distress Neck: Supple, Other Lungs: Clear to Auscultation Cardiovascular: Regular Rate, Regular Rhythm Skin: Warm, Dry, Intact - Patient Data Lab Results Last 24 hrs: Laboratory Results - last 24 hr 07/07/20 07/07/20 07/07/20 Range/Units 06:01 11:21 17:01 WBC (3.0-10.3) x10-3/uL RBC (3.60-5.20) x10(6)uL Hgb (11.4-15.5) g/dL Hct (34.2-48.2) % MCV (76.7-100.5) fL MCH (23.9-33.9) pg MCHC (31.9-34.8) g/dL RDW (12.3-16.5) % Plt Count (151-488) x10(3)uL Sodium (135-145) mmol/L Potassium (3.5-5.3) mmol/L Chloride (100-110) mmol/L Carbon Dioxide (21-32) mmol/L BUN (7-18) mg/dL Creatinine (0.55-1.02) mg/dL Est Cr Clr Drug Dosing mL/min Estimated GFR (MDRD) (>60) BUN/Creatinine Ratio (9-20) Glucose (80-116) mg/dL POC Glucose 89 97 128 H (74-100) mg/dL Calcium (8.6-10.2) mg/dL Total Bilirubin (0.1-1.3) mg/dL AST (5-25) IU/L ALT (12-36) U/L Alkaline Phosphatase (56-112) IU/L Total Protein (6.0-8.0) g/dL Albumin (3.2-4.6) g/dL Globulin g/dL Albumin/Globulin Ratio 07/07/20 07/08/20 07/08/20 Range/Units 19:56 06:46 07:00 WBC 3.5 (3.0-10.3) x10-3/uL RBC 3.22 L (3.60-5.20) x10(6)uL Hgb 7.3 L (11.4-15.5) g/dL Hct 23.9 L (34.2-48.2) % MCV 74.4 L (76.7-100.5) fL MCH 22.6 L (23.9-33.9) pg MCHC 30.4 L (31.9-34.8) g/dL RDW 21.3 H (12.3-16.5) % Plt Count 107 L (151-488) x10(3)uL Sodium (135-145) mmol/L Potassium (3.5-5.3) mmol/L Chloride (100-110) mmol/L Carbon Dioxide (21-32) mmol/L BUN (7-18) mg/dL Creatinine (0.55-1.02) mg/dL Est Cr Clr Drug Dosing mL/min Estimated GFR (MDRD) (>60) BUN/Creatinine Ratio (9-20) Glucose (80-116) mg/dL POC Glucose 142 H 100 (74-100) mg/dL Calcium (8.6-10.2) mg/dL Total Bilirubin (0.1-1.3) mg/dL AST (5-25) IU/L ALT (12-36) U/L Alkaline Phosphatase (56-112) IU/L Total Protein (6.0-8.0) g/dL Albumin (3.2-4.6) g/dL Globulin g/dL Albumin/Globulin Ratio 07/08/20 Range/Units 07:00 WBC (3.0-10.3) x10-3/uL RBC (3.60-5.20) x10(6)uL Hgb (11.4-15.5) g/dL Hct (34.2-48.2) % MCV (76.7-100.5) fL MCH (23.9-33.9) pg MCHC (31.9-34.8) g/dL RDW (12.3-16.5) % Plt Count (151-488) x10(3)uL Sodium 144 (135-145) mmol/L Potassium 2.6 L* D (3.5-5.3) mmol/L Chloride 104 (100-110) mmol/L Carbon Dioxide 33 H (21-32) mmol/L BUN 3 L D (7-18) mg/dL Creatinine 0.4 L (0.55-1.02) mg/dL Est Cr Clr Drug Dosing 100.72 mL/min Estimated GFR (MDRD) > 60 (>60) BUN/Creatinine Ratio 7.5 L (9-20) Glucose 97 (80-116) mg/dL POC Glucose (74-100) mg/dL Calcium 8.0 L (8.6-10.2) mg/dL Total Bilirubin 0.2 (0.1-1.3) mg/dL AST 43 H D (5-25) IU/L ALT 27 (12-36) U/L Alkaline Phosphatase 81 (56-112) IU/L Total Protein 5.9 L (6.0-8.0) g/dL Albumin 2.7 L (3.2-4.6) g/dL Globulin 3.2 g/dL Albumin/Globulin Ratio 0.8 Result Diagrams: 07/08/20 07:00 07/08/20 07:00 Sepsis Event Note - Evaluation Sepsis Screening Result: No Definite Risk - Focused Exam Vital Signs: Vital Signs Temp Pulse Resp BP Pulse Ox 07/08/20 08:00 98.2 F 92 18 154/84 H 99 07/08/20 04:00 97.0 F 79 16 152/82 H 95 *Q Meaningful Use (ADM) - VTE *Q VTE Pharmacological Contraindications *Q: Patient Scheduled Surgery VTE Anticoagulation Contraindications: Med/TX Not Indicated/Need Consult PN Assessment/Plan Procedures: Procedures AIRWAY INHALATION TREATMENT (11/08/13) ANES UPR GI NDSC PX NOS (06/16/20) ASSAY OF AMYLASE (06/16/20) ASSAY OF ETHANOL (12/16/13) ASSAY OF FOLIC ACID SERUM (11/21/18) ASSAY OF IRON (11/21/18) ASSAY OF LACTIC ACID (02/12/20) ASSAY OF LIPASE (06/16/20) ASSAY OF MAGNESIUM (05/03/20) ASSAY OF PHOSPHORUS (12/20/19) ASSAY OF SERUM POTASSIUM (05/12/20) ASSAY OF TROPONIN QUANT (12/20/19) ASSAY OF URINE CREATININE (05/12/20) ASSAY OF VITAMIN B-1 (11/06/14) BLOOD CULTURE FOR BACTERIA (11/08/13) BLOOD GASES ANY COMBINATION (02/12/20) BLOOD TRANSFUSION SERVICE (12/20/19) BLOOD TYPING SEROLOGIC ABO (12/20/19) BLOOD TYPING SEROLOGIC RH(D) (12/20/19) C-REACTIVE PROTEIN (05/03/20) CHEST X-RAY 1 VIEW FRONTAL (12/16/13) CHEST X-RAY 2VW FRONTAL&LATL (11/08/13) COMPATIBILITY TEST ANTIGLOB (12/20/19) COMPATIBILITY TEST SPIN (12/20/19) COMPLETE CBC AUTOMATED (06/16/20) COMPLETE CBC W/AUTO DIFF WBC (06/16/20) COMPREHEN METABOLIC PANEL (05/12/20) CT ABD & PELV W/CONTRAST (05/03/20) DRUG TEST PRSMV CHEM ANLYZR (05/12/20) DRUG TEST PRSMV DIR OPT OBS (02/12/20) EGD BIOPSY SINGLE/MULTIPLE (06/16/20) ELECTROCARDIOGRAM REPORT (03/29/19) ELECTROCARDIOGRAM TRACING (02/12/20) EMERGENCY DEPT VISIT (06/16/20) EMERGENCY DEPT VISIT (12/20/19) EMERGENCY DEPT VISIT (12/20/19) EMERGENCY DEPT VISIT (03/17/19) EMERGENCY DEPT VISIT (02/21/18) EMERGENCY DEPT VISIT (02/21/18) EMERGENCY DEPT VISIT (11/06/14) EMERGENCY DEPT VISIT (11/06/14) EMERGENCY DEPT VISIT (12/16/13) EMERGENCY DEPT VISIT (12/16/13) EMERGENCY DEPT VISIT (11/20/13) EMERGENCY DEPT VISIT (11/12/13) EMERGENCY DEPT VISIT (11/08/13) EMERGENCY DEPT VISIT (11/08/13) EVALUATE PT USE OF INHALER (11/08/13) GAIT TRAINING THERAPY (12/20/19) GLUCOSE BLOOD TEST (05/12/20) GLYCOSYLATED HEMOGLOBIN TEST (05/12/20) HYDRATE IV INFUSION ADD-ON (06/16/20) IMMUNIZATION ADMIN (11/21/18) IMMUNOHISTO ANTB 1ST STAIN (06/16/20) INSERT NON-TUNNEL CV CATH (03/29/19) INSERT TEMP BLADDER CATH (11/21/18) IRON BINDING TEST (11/21/18) LIPID PANEL (05/12/20) MEASURE BLOOD OXYGEN LEVEL (04/26/19) METABOLIC PANEL TOTAL CA (06/16/20) MICROBE SUSCEPTIBLE MICHEL (12/20/19) MRI LUMBAR SPINE W/O DYE (02/03/19) NEUROMUSCULAR REEDUCATION (12/20/19) NON-ROUTINE BL DRAW 3/> YRS (05/12/20) OCCULT BLD FECES 1-3 TESTS (05/12/20) OCCULT BLOOD FECES (12/20/19) OT EVAL LOW COMPLEX 30 MIN (12/20/19) OT EVAL MOD COMPLEX 45 MIN (11/21/18) PROTHROMBIN TIME (05/12/20) PT EVAL LOW COMPLEX 20 MIN (12/20/19) RBC ANTIBODY SCREEN (12/20/19) ROUTINE VENIPUNCTURE (06/16/20) SELF CARE MNGMENT TRAINING (11/21/18) SPECIAL STAINS GROUP 2 (06/16/20) TDAP VACCINE 7 YRS/> IM (11/21/18) THER/DIAG CONCURRENT INF (01/25/18) THER/PROPH/DIAG INJ IV PUSH (06/16/20) THER/PROPH/DIAG INJ SC/IM (02/12/20) THER/PROPH/DIAG IV INF ADDON (03/29/19) THER/PROPH/DIAG IV INF INIT (02/12/20) THERAPEUTIC ACTIVITIES (12/20/19) THROMBOPLASTIN TIME PARTIAL (05/12/20) TISSUE EXAM BY PATHOLOGIST (06/16/20) TX/PRO/DX INJ NEW DRUG ADDON (06/16/20) TX/PRO/DX INJ SAME DRUG SUPERVISOR WRAPPING ROOM (06/16/20) TX/PROPH/DG ADDL SEQ IV INF (03/29/19) UR ALBUMIN QUANTITATIVE (05/12/20) URINALYSIS AUTO W/SCOPE (06/16/20) URINE BACTERIA CULTURE (12/20/19) URINE CULTURE/COLONY COUNT (12/20/19) VITAMIN B-12 (11/21/18) WITHDRAWAL OF ARTERIAL BLOOD (02/12/20) X-RAY EXAM ABDOMEN 2 VIEWS (05/12/20) X-RAY EXAM CHEST 1 VIEW (02/12/20) X-RAY EXAM OF ABDOMEN (11/08/13) X-RAY EXAM OF HIP (11/08/13) (1) Poor intravenous access SNOMED Code(s): 033134575 Code(s): Z78.9 - OTHER SPECIFIED HEALTH STATUS Current Visit: Yes (2) H/O ETOH abuse SNOMED Code(s): 387737751 Code(s): Z87.898 - PERSONAL HISTORY OF OTHER SPECIFIED CONDITIONS Current Visit: No Problem List Initiated/Reviewed/Updated: Yes Plan: A port does appear to be reasonable. She will require some LFT's PT and an INR. will plan a left subclavian approach with an left external cut down if needed. procedures and risks explained to the pt to include bleeding, infection, injury to major blood vessels and lung. she expressed understanding and asks us to proceed.
[2020-07-08] MEDS: Potassium Chloride 20 MEQ Tab.ER PO SCH ×2 (14:47→20:41)
[2020-07-08] MEDS: Mirtazapine 30 MG Tab PO SCH (20:42)
[2020-07-09] MEDS: traMADol 50 MG Tab PO PRN ×3 (06:48→19:10)
[2020-07-09] MEDS: Pantoprazole 40 MG Tab.CR PO SCH (06:48)
[2020-07-09 08:10] LABS: IRON BIND.CAP.(TIBC) 295 ug/dL (250-450); IRON SATURATION 34 % (15-55); IRON, SERUM 101 ug/dL (27-139); UIBC 194 ug/dL (118-369)
[2020-07-09] MEDS: Ferrous Sulfate 325 MG Tab PO SCH ×3 (09:14→17:31)
[2020-07-09] MEDS: metFORMIN 500 MG Tab.ER PO SCH ×2 (09:14→18:01)
[2020-07-09] MEDS: Thiamine 100 MG Tab PO SCH (09:14)
[2020-07-09] MEDS: Potassium Chloride 20 MEQ Tab.ER PO SCH ×3 (09:14→20:10)
[2020-07-09] MEDS: glipiZIDE 5 MG Tab PO SCH (09:15)
[2020-07-09] MEDS: Spironolactone 25 MG Tab PO SCH (09:15)
[2020-07-09] MEDS: Nicotine 14 MG/24 Hr Patch TRDERM SCH (09:16)
[2020-07-09] MEDS: PARoxetine 20 MG Tab PO SCH (09:16)
[2020-07-09] MEDS: Enoxaparin 40 MG/0.4 ML Syringe SUBCUT SCH (09:16)
[2020-07-09] MEDS: Mirtazapine 30 MG Tab PO SCH (20:10)
[2020-07-10] MEDS: traMADol 50 MG Tab PO PRN ×3 (01:09→18:31)
[2020-07-10] MEDS ORDERED: Lactated Ringers 1,000 ML IV SCH (08:45)
[2020-07-10] MEDS ORDERED: Bupivacaine 0.5% 30 ML SDV INJECT ONE (09:59)
[2020-07-10] MEDS ORDERED: Lidocaine 1% with EPINEPHrine 1:100,000 20 ML MDV INJECT ONE (09:59)
--- NOTE | 2020-07-10 10:00 | PN ---
DATE SEEN: 07/09/2020 TIME: 1800 hours. SUBJECTIVE: Zuleika Rosado is a 64-year-old seen today for complicated abdominal pain, alcoholic gastritis, bone marrow deficient, and likely GI source of bleeding, hemoglobin down to 7.1. Plans for discharge were avoided due to markedly low potassium of 2.6. IV access absent, has been started on oral agents. ASSESSMENT/PLAN: We will delay discharge, place on oral potassium, observation due to muscle weakness, and continue plans for venous port to be placed by Dr. Quiroga on the following 07/10/2020. She is in agreement and medically appropriate. /[id number] LULU/ROMARIO
--- NOTE | 2020-07-10 10:00 | PN ---
DATE SEEN: 07/09/2020 TIME: 7 a.m. SUBJECTIVE: Zuleika Rosado is a 64-year-old female admitted with complicated nausea and vomiting, alcoholic gastritis, blood alcohol of 0.16, and a complicated anemia. Fell to a low of 7.1. Has risen to 7.3. Attempts for IV access for blood were unsuccessful. Markedly low potassium 2.6. Dictated plan is for discharge home and outpatient procedure report to be canceled. She had a good evening. Potassium has now risen to 3.3. No other particular complaints or concerns. LABORATORY STUDIES: Electrolytes; potassium of 3.3, BUN 5, creatinine 0.6, GFR greater than 60, glucose 89, calcium 8.0. PHYSICAL EXAMINATION: VITAL SIGNS: 36.6, 93 is the pulse, 159/81, 18, and 96 on room air. GENERAL: Speech was a bit forced, but appropriate. Voices no complaints. She has some mild GI discomfort. NECK: Benign. Thyroid small. CHEST: On auscultation, clear in all lung mora. Decreased breath sounds, clear with cough. HEART: Distant heart sounds. Occasional ectopy. Soft murmur. ABDOMEN: A little tender in epigastric area. ASSESSMENT: 1. Alcoholic gastritis. 2. Duodenitis. 3. Significant anemia, likely an issue of nutrition and bone marrow toxicity of alcohol. 4. Hypokalemia, improved. PLAN: We will continue present therapy, all looks well. Her metabolic panel revealed liver enzymes to be satisfactory and protime and INR are stable. Okay for Dr. Quiroga's plan for port placement on 07/10/2020. /[id number] /ROMARIO
--- NOTE | 2020-07-10 11:08 | PCM.OPNOTE ---
- General Post-Op/Procedure Note Date of Surgery/Procedure: 07/10/20 Operative Procedure(s): port placement left external jugular Findings: unable to access left subclavian percutaneously. cut down done to external jugular on the left 8Fr cath/port placed Pre Op Diagnosis: poor iv access Post-Op Diagnosis: Same Anesthesia Technique: Local (1% lido with ep/0.5% buvipicaine), MAC Primary Surgeon: Arnie Quiroga Anesthesia Provider: Sylvie Miranda Complications: None Condition: Good Free Text/Narrative:: see dictation [id number]
[2020-07-10] MEDS: Sodium Chloride 0.9% 250 ML IV SCH ×2 (11:45→14:25)
[2020-07-10] MEDS: Pantoprazole 40 MG Tab.CR PO SCH (12:11)
[2020-07-10] MEDS: Ferrous Sulfate 325 MG Tab PO SCH ×2 (12:11→18:30)
[2020-07-10] MEDS: Spironolactone 25 MG Tab PO SCH (12:11)
[2020-07-10] MEDS: Potassium Chloride 20 MEQ Tab.ER PO SCH ×2 (12:12→16:00)
[2020-07-10] MEDS: Thiamine 100 MG Tab PO SCH (12:12)
[2020-07-10] MEDS: PARoxetine 20 MG Tab PO SCH (12:12)
[2020-07-10] MEDS: Enoxaparin 40 MG/0.4 ML Syringe SUBCUT SCH (12:12)
[2020-07-10] MEDS: metFORMIN 500 MG Tab.ER PO SCH ×2 (12:13→18:31)
[2020-07-10] MEDS: Nicotine 14 MG/24 Hr Patch TRDERM SCH (12:20)
[2020-07-10] MEDS: glipiZIDE 5 MG Tab PO SCH (12:25)
[2020-07-10] MEDS ORDERED: Midazolam 1 MG/ML 2 ML SDV IV ONE (13:17)
[2020-07-10] MEDS ORDERED: Propofol 200 MG/20 ML SDV IV ONE (13:17)
--- NOTE | 2020-07-10 14:28 | PN ---
DATE SEEN: 07/10/2020 SUBJECTIVE: Zuleika Rosado is a 64-year-old female admitted with complicated alcohol-related gastritis and duodenitis. Responded well. Continues to have vague, but not problematic abdominal pain. Hemoglobin vacillated from 7.1 to 7.3. She is scheduled for port placement and 2 units of blood today. Otherwise, doing well. LABORATORY STUDIES: None outstanding. Glucose is 65, 103, 105. PHYSICAL EXAMINATION: VITAL SIGNS: 36.6, 90, 164/81, 18, 100%. GENERAL: Appears comfortable. Speech is a bit dysarthric. NECK: Benign. No JVD. CHEST: Decreased breath sounds, but clear in all lung mora. CARDIAC: Distant heart sounds. Occasional ectopy. ABDOMEN: Benign. IMPRESSION: Alcohol-induced gastritis, anemia, likely nutritional, and bone marrow toxicity, alcohol. PLAN: Plan as above. Port to be placed. Two unit of blood. Will be discharged home this evening. /[id number] /ROMARIO
--- NOTE | 2020-07-10 14:29 | OR ---
DATE OF OPERATION: 07/10/2020 SURGEON: Arnie Quiroga MD PROCEDURE PERFORMED: Left external jugular port placement. PREOPERATIVE DIAGNOSIS: Poor intravenous access. POSTOPERATIVE DIAGNOSIS: Poor intravenous access. INDICATIONS FOR PROCEDURE: Ms. Rosado is a 64-year-old white female who has a history of intermittent alcohol abuse and presents regularly to the emergency department as well as being admitted with gastritis, epigastric pain, and need for IV access. As this has occurred over many years, the patient has reached a point where getting access, especially to be able to transfuse blood, has become impossible. She is requiring a transfusion due to some anemia, most likely secondary to alcoholic gastritis versus poor bone marrow function, and a port was asked for us to be placed. Her LFTs and coags were such that it was safe to do this, and the patient expressed understanding and asked us to proceed. INTRAOPERATIVE FINDINGS: A titanium inflatable port with an 8-Danish catheter, low-profile, reference #[id number], lot #[id number], with an expiration date of was placed without difficulty. A total of 16 mL of Hepflush was used, and 12 mL of a local was used as well. DESCRIPTION OF OPERATION: After an excellent IV sedation was administered, the patient was prepped and draped in the usual sterile manner. She was placed in Trendelenburg position with a roll between her shoulders. Attempts to access the left subclavian vein, which were done for infiltrating our planned insertion site 2[address] the sternal notch below the left clavicle were not successful. She did have a visible branch of the external jugular, which appeared to be adequate. More local was used to infiltrate in this area, and local was used to infiltrate for the planned port site approximately 3 cm below the left clavicle. A cutdown was then performed with a #15 scalpel blade. Blunt dissection was carried out and a vein was exposed, which appeared to be the external jugular. After dissecting it free, two sutures of 3-0 black silk were placed proximally and distally. A small venotomy was created with a #11 scalpel blade, and this was done after tunneling the catheter from the pocket site to the incision site. The catheter had been flushed with normal saline. Attempts to pass the catheter down the venotomy were not successful. We therefore tied off this vessel, and after further exploration, found a more prominent lateral branch of the external jugular. We were able to dissect this free and again place two 3-0 black silk sutures proximally and distally on this blood vessel. This was then elevated. A venotomy was then made, and we were able to pass the catheter quite easily into the main system. Using fluoroscopy, the tip of the catheter was positioned in the superior vena cava. The two 3-0 black silks were then tied, one incorporating the catheter on the distal end, and on the proximal end, obviously the vein was tied over the catheter as well. An additional catheter was placed distal to the distal 3-0 black silk to ensure that there would be no bleeding from the distal end of the vein. The catheter was then cut to length and attached to the port, which was then inserted into the pocket. The port had been flushed with saline prior to insertion. This was then sewn into position with 2 interrupted 3-0 black silks to keep it from flipping and rotating, and then our initial Hepflush was then used to flush the catheter. We then closed both skin defects in 2 layers with the subcu tissue being approximated with 3-0 Vicryl in both the neck and chest wall incision, and then the skin was closed with a running subcu 4-0 Vicryl. The access needle was then passed into the catheter after applying our Steri-Strips, and this was aspirated and flushed again with more Hepflush for a total of 16 mL used for the case. The catheter itself was kept on connected with the access needle. The patient tolerated the procedure well and was to her room. A postoperative x-ray will be obtained. /[id number] /MODL
[2020-07-10] MEDS ORDERED: Sodium Chloride 0.9% 10 ML Syringe FLUSH PRN (17:00)
[2020-07-10 20:09] VITALS: BP 164/83; PULSE 88
[2020-07-11] MEDS ORDERED: Potassium Chloride 20 MEQ Tab.ER PO SCH (09:00)
--- NOTE | 2020-07-11 15:14 | DISCH ---
DISCHARGE DATE: 07/10/2020 DIAGNOSES: 1. Acute alcohol gastritis. 2. Nausea. 3. Vomiting. 4. Diarrhea. 5. Acute alcohol state. 6. Symptomatic anemia, hemoglobin 7.1. HOSPITAL COURSE: Zuleika Rosado is a 64-year-old female admitted with acute abdominal pain, nausea, vomiting, and diarrhea, blood alcohol 0.167, some acute alcoholic gastritis. She was found on admission to have a hemoglobin of 7.1. Given IV fluids, hydration, intravenous Protonix, and GI symptoms resolved. Seen in consultation by Dr. Quiroga due to lack of IV access. Central line will be placed during her hospital stay. Hemoglobin sanchez from 7.1 to 7.3, but related to likely low iron stores and alcohol-induced bone marrow suppression. She was ambulated with better success. On the morning of 07/10, she underwent port placement in right upper chest. She was given 2 units of blood, and hemoglobin sanchez to 10.5. She spoke at length of the need for pain pills. Talked about tramadol, Tylenol, codeine, and hydrocodone; none indicated, not appropriate, not necessary, certainly a bad combination with alcohol. Alcohol reduction and removal from her life utterly important. PHYSICAL EXAMINATION: VITAL SIGNS: Stable. HEENT: Mouth and oropharynx clear. NECK: Benign. Thyroid small. CHEST: Clear in all lung mora. HEART: No ectopy or murmur. ABDOMEN: Vague epigastric pain. PLAN: Discharge home. Medications and treatment appropriate. Hypokalemia will be followed as well as her hemoglobin. Discharged home on 20 mEq of potassium, a multivitamin with iron rather than iron pills not tolerated. Has an upcoming visit with Dr. Aden Lemus in 1 weeks' time. Surgical procedures, port placement, consultation with Dr. Quiroga. /[id number] LULU/ROMARIO
--- NOTE | 2020-07-16 14:30 | CR ---
INDICATION: Port insertion. C-ARM LESS THAN ONE HOUR: Ten C-arm fluoroscopic images were obtained with 0.9 minutes C-arm fluoroscopy time in OR. IMPRESSION: Satisfactory placement post port insertion. INDICATION: Port insertion. OR CHEST, NO CHARGE CENTRAL LINE PLACEMENT: A single AP view of the chest was obtained 07/10/2020 and compared with 07/06/2020 revealing the heart to be normal in size and shape. No definite active infiltrate or effusion was identified. Overlying snaps are noted. A port-a-cath is noted in place with its tip at the level of the yelena in the area of the SVC. IMPRESSION: Satisfactory port placement-no acute process-no complicating process seen. MTDD
== END 2020-07-10 19:10 | disposition home or self-care (01) | DRG 357 ==
LOC: FB.ED 22:52 → FB.MS 07-06 03:36 → OBSVTOIN 07-08 14:16
PROVIDERS: ADMIT Emergency Medicine; ATTEND Family Medicine
PROC: 0JH60WZ Insertion of Totally Implantable Vascular Access Device into Chest Subcutaneous Tissue and Fascia, Open Approach (ICD-10-PCS; principal; 2020-07-10)
PROC: 30243N1 Transfusion of Nonautologous Red Blood Cells into Central Vein, Percutaneous Approach (ICD-10-PCS; 2020-07-10)
PROC: 02HV33Z Insertion of Infusion Device into Superior Vena Cava, Percutaneous Approach (ICD-10-PCS; 2020-07-10)
DX: K29.20 Alcoholic gastritis without bleeding (principal); E87.2 Acidosis; F10.129 Alcohol abuse with intoxication, unspecified; E87.6 Hypokalemia; I10 Essential (primary) hypertension; E11.9 Type 2 diabetes mellitus without complications; F17.210 Nicotine dependence, cigarettes, uncomplicated; H54.7 Unspecified visual loss; D64.9 Anemia, unspecified; K21.9 Gastro-esophageal reflux disease without esophagitis; R32 Unspecified urinary incontinence; Z20.828 Contact with and (suspected) exposure to other viral communicable diseases; M19.90 Unspecified osteoarthritis, unspecified site; M81.0 Age-related osteoporosis without current pathological fracture; F41.9 Anxiety disorder, unspecified; F32.9 Major depressive disorder, single episode, unspecified; D69.6 Thrombocytopenia, unspecified; Y90.6 Blood alcohol level of 120-199 mg/100 ml; Z79.82 Long term (current) use of aspirin; Z79.899 Other long term (current) drug therapy; Z79.84 Long term (current) use of oral hypoglycemic drugs; Z88.2 Allergy status to sulfonamides; Z87.01 Personal history of pneumonia (recurrent)
CPT/HCPCS: 00532-QZ; 36415; 36430; 51702; 71045; 74176; 74177; 76000; 80048; 80053; 80307; 81001; 82728; 82962; 83540; 83550; 83605; 83690; 83735; 84484; 85014; 85018; 85025; 85027; 85610; 86850; 86900; 86901; 86920; 86922; 93005; 93010; 96365; 96372; 96374; 96375; 96376; 99218; 99225; 99232; 99238; 99284; 99285-25; A9270-GY; C9113; G0378; J0780; J1200; J1642; J1650; J2250; J2405; J2704; J3411; J3490; J7030; J7050; J7120; P9016; U0002

== ENCOUNTER 2020-09-06 06:07 | Emergency (ER) | payer BC, MEDICARE ==
--- NOTE | 2020-09-06 06:57 | EDM.PDOC ---
ED HPI GENERAL MEDICAL PROBLEM - General Chief Complaint: General Time Seen by Provider: 09/06/20 06:50 Source of Information: Reports: Patient History Limitations: Reports: No Limitations - History of Present Illness INITIAL COMMENTS - FREE TEXT/NARRATIVE: 64-year-old female who is well-known to this physician and to the emergency department staff secondary to multiple visits with vomiting and often times really severe metabolic acidosis related to her vomiting and to her ongoing alcohol abuse. She reports that she is still having ongoing alcohol use on a daily basis and that approximately 11 PM last night she began having vomiting and has not been able to stop vomiting throughout the night. She reports vomiting 20+. She also is complaining of diffuse abdominal pain that is a burning type pain that she rates as an 8-9/10. No diarrhea and in fact she reports no bowel movement for the past 4-5 days. She denies any chest pain. She does report generalized weakness and inability to ambulate at present secondary to this weakness. She denies dysuria or hematuria. She does report that she is still having urine output. No cough. No difficulty breathing. No nasal congestion. She does have some sore throat after vomiting but none prior to this. She presents to the emergency department via ambulance from her home. Evaluation does report she has not taken her medication since Wednesday of this we ek. Also, apparently she does have some intermittent vomiting on a daily basis but it has been persistent since 11 PM last night. There are no other associated signs or symptoms. There are no other modifying factors. 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: Other (see below) (Nothing.) Generalized Pain Score (Numeric/FACES): 5 Epigastric region Pain Score (Numeric/FACES): 5 - Related Data Allergies Allergy/AdvReac Type Severity Reaction Status Date / Time Sulfa (Sulfonamide Allergy Rash Verified 05/12/20 14:18 Antibiotics) Home Meds: Home Meds Multivitamin [Multi-Vitamin Daily] 1 tab PO DAILY 10/09/13 [History] Aspirin 81 mg PO DAILY 07/26/18 [History] Spironolactone [Aldactone] 25 mg PO DAILY 03/17/19 [History] Folic Acid 1 mg PO DAILY 05/03/19 [History] Calcium Carb, Citrate/Vit D3 [Citracal + D ER] 1 tab PO BID 12/20/19 [History] Mirtazapine [Remeron] 30 mg PO BEDTIME #30 tablet 01/01/20 [Rx] Thiamine [Vitamin B-1] 100 mg PO DAILY #30 tablet 01/01/20 [Rx] PARoxetine [Paxil] 20 mg PO DAILY 05/13/20 [History] Acamprosate [Campral] 333 mg PO BID 06/17/20 [History] Ondansetron [Zofran ODT] 4 mg PO Q6H PRN 06/17/20 [History] Pantoprazole Sodium [Protonix] 40 mg PO DAILY 06/17/20 [History] glipiZIDE [Glucotrol] 2.5 mg PO DAILY 06/17/20 [History] Sucralfate [Carafate] 1 gm PO QID #120 tablet 06/19/20 [Rx] Naproxen Sodium [Aleve] 220 mg PO Q12H PRN 07/08/20 [History] Rosuvastatin [Crestor] 10 mg PO DAILY 07/08/20 [History] metFORMIN [Glucophage] 500 mg PO BIDMEALS 07/08/20 [History] Acetaminophen [Tylenol] 650 mg PO Q4H PRN tablet 07/10/20 [Rx] Potassium Chloride [Klor-Con M20] 20 meq PO DAILY #30 tab.er 07/10/20 [Rx] Furosemide 40 mg PO BID 09/06/20 [History] Magnesium 200 mg PO DAILY 09/06/20 [History] Sertraline [Zoloft] 100 mg PO DAILY 09/06/20 [History] Past Medical History HEENT History: Reports: Cataract, Impaired Vision Cardiovascular History: Reports: Hypertension Other Cardiovascular History: States has irregular HR at times. Respiratory History: Reports: Bronchitis, Recurrent, Pneumonia, Recurrent Other Respiratory History: Tobacco use. Gastrointestinal History: Reports: GERD, Pancreatitis, PUD Other Gastrointestinal History: "Prolapsed colon". 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 Ataxia. Neurological History: Reports: Other (See Below) Other Neuro History: Episodes of DT's. Movement disorder. Psychiatric History: Reports: Addiction, Anxiety, Depression, Other (See Below) Other Psychiatric History: Drug and alcohol addiction. Endocrine/Metabolic History: Reports: Diabetes, Type II, Osteoporosis Hematologic History: Reports: Anemia, Blood Transfusion(s), Other (See Below) Other Hematologic History: Leukopenia, thrombocytopenia. - Infectious Disease History Infectious Disease History: Reports: Chicken Pox, Measles, Mumps - Past Surgical History Cardiovascular Surgical History: Reports: Other (See Below) (Vascular access surgery with port) GI Surgical History: Reports: Colonoscopy, EGD, Other (See Below) Other GI Surgeries/Procedures: History of feeding tube. Musculoskeletal Surgical History: Reports: Other (See Below) Other Musculoskeletal Surgeries/Procedures:: Toe surgery. Social & Family History - Tobacco Use Tobacco Use Status *Q: Current Every Day Tobacco User Years of Tobacco use: 40 Packs/Tins Daily: 1 - Caffeine Use Caffeine Use: Reports: Coffee Other Caffeine Use: 2-3 CUPS DAILY - Alcohol Use Alcohol Use History: Yes Days Per Week of Alcohol Use: 5 Number of Drinks Per Day: 5 Total Drinks Per Week: 25 Alcohol Use Frequency: Daily - Recreational Drug Use Recreational Drug Use: No - Living Situation & Occupation Living situation: Reports: Alone Occupation: Disabled ED ROS GENERAL - Review of Systems Review Of Systems: See Below Constitutional: Reports: Weakness HEENT: Reports: Other (Dry mouth) Respiratory: Reports: No Symptoms Cardiovascular: Reports: No Symptoms Endocrine: Reports: No Symptoms GI/Abdominal: Reports: Abdominal Pain, Nausea, Vomiting : Reports: No Symptoms Musculoskeletal: Reports: No Symptoms Skin: Reports: No Symptoms Neurological: Reports: Dizziness, Weakness Psychiatric: Reports: No Symptoms Hematologic/Lymphatic: Reports: No Symptoms Immunologic: Reports: No Symptoms ED EXAM, GENERAL - Physical Exam Exam: See Below Exam Limited By: No Limitations General Appearance: Alert, Moderate Distress, Other (Disheveled) Eye Exam: Bilateral Eye: EOMI (There is lateral gaze nystagmus at less than 45.), Normal Inspection, PERRL Ears: Normal External Exam, Hearing Grossly Normal Ear Exam: Bilateral Ear: Auricle Normal Nose: Normal Inspection, Normal Mucosa, No Blood Throat/Mouth: Normal Voice, No Airway Compromise, Other (Dry mucous membranes. Strong odor of alcohol on her breath.) Head: Atraumatic, Normocephalic Neck: Normal Inspection, Supple, Non-Tender, Full Range of Motion Respiratory/Chest: No Respiratory Distress, Lungs Clear, Normal Breath Sounds, No Accessory Muscle Use, Chest Non-Tender Cardiovascular: Normal Peripheral Pulses, Regular Rate, Rhythm, No Murmur Peripheral Pulses: 2+: Radial (L), Radial (R), Dorsalis Pedis (L), Dorsalis Pedis (R) GI/Abdominal: Normal Bowel Sounds, Soft, No Distention, No Mass, Tender (Diffuse tenderness.). No: Rebound Back Exam: Normal Inspection, Full Range of Motion Extremities: Normal Inspection, Normal Range of Motion, Non-Tender, No Pedal Edema, Normal Capillary Refill Neurological: Alert, Oriented, CN II-XII Intact, Normal Cognition, No Motor/Sensory Deficits Skin Exam: Warm, Dry, Intact, Normal Color, No Rash #1 Interpretation EKG Date: 09/06/20 Time: 07:47 Rhythm: NSR Rate (Beats/Min): 105 [place]: LAD-Left [place] Deviation P-Wave: Present QRS: Normal ST-T: Normal QT: Prolonged (Prolonged QTc.) Comparison: No Change (From an EKG performed on 07/06/2020.) Course - Vital Signs Last Recorded V/S: Last Vital Signs Temp 36.6 C 09/06/20 06:21 Pulse 107 H 09/06/20 09:45 Resp 18 09/06/20 09:45 BP 119/89 09/06/20 09:45 Pulse Ox 99 09/06/20 09:45 - Orders/Labs/Meds Orders: Active Orders 24 hr Category Date Time Status EKG 12 Lead [EK] Routine Ther 09/06/20 07:10 Ordered Labs: Laboratory Tests 09/06/20 09/06/20 09/06/20 Range/Units 07:30 07:30 07:30 WBC 9.6 (3.0-10.3) x10-3/uL RBC 3.52 L (3.60-5.20) x10(6)uL Hgb 9.8 L (11.4-15.5) g/dL Hct 31.6 L (34.2-48.2) % MCV 89.7 (76.7-100.5) fL MCH 27.8 (23.9-33.9) pg MCHC 31.0 L (31.9-34.8) g/dL RDW 22.0 H (12.3-16.5) % Plt Count 373 (151-488) x10(3)uL MPV 7.1 (7.1-12.4) fL Neut % (Auto) 87.9 H (30.8-76.2) % Lymph % (Auto) 6.2 L (18.4-52.1) % [place] % (Auto) 5.2 (4.4-15.7) % Eos % (Auto) 0.1 L (0.6-8.1) % Baso % (Auto) 0.6 (0.2-1.5) % Neut # (Auto) 8.5 H (1.5-6.3) x10-3/uL Lymph # (Auto) 0.6 L (1.0-4.4) x10-3/uL [place] # (Auto) 0.5 (0.3-1.0) x10-3/uL Eos # (Auto) 0.0 (0.0-0.8) x10-3/uL Baso # (Auto) 0.1 (0.0-0.1) x10-3/uL PT (9.0-11.1) sec INR (1.00-1.24) APTT (24.4-33.2) SECONDS Sodium 140 (135-145) mmol/L Potassium 3.9 (3.5-5.3) mmol/L Chloride 99 L (100-110) mmol/L Carbon Dioxide 12 L (21-32) mmol/L BUN 11 (7-18) mg/dL Creatinine 0.7 (0.55-1.02) mg/dL Est Cr Clr Drug Dosing TNP Estimated GFR (MDRD) > 60 (>60) BUN/Creatinine Ratio 15.7 (9-20) Glucose 96 (80-116) mg/dL Lactic Acid (0.4-2.0) mmol/L Calcium 7.6 L (8.6-10.2) mg/dL Magnesium 1.8 (1.8-2.5) mg/dL Total Bilirubin 0.4 (0.1-1.3) mg/dL AST 43 H (5-25) IU/L ALT 27 (12-36) U/L Alkaline Phosphatase 120 H (56-112) IU/L Troponin I 10.5 (4.0-60.3) pg/mL Total Protein 7.7 (6.0-8.0) g/dL Albumin 3.8 (3.2-4.6) g/dL Globulin 3.9 g/dL Albumin/Globulin Ratio 1.0 Lipase 75 (73-393) U/L Urine Color (YELLOW) Urine Appearance (CLEAR) Urine pH (5.0-6.5) Ur Specific Zachary (1.010-1.025) Urine Protein (NEGATIVE) mg/dL Urine Glucose (UA) (NORMAL) mg/dL Urine Ketones (NEGATIVE) mg/dL Urine Occult Blood (NEGATIVE) Urine Nitrite (NEGATIVE) Urine Bilirubin (NEGATIVE) Urine Urobilinogen (NEGATIVE) mg/dL Ur Leukocyte Esterase (NEGATIVE) Urine RBC (0-5) Urine WBC (0-5) Ur Squamous Epith Cells (NS,R,O) Urine Bacteria (NS) Ethyl Alcohol 0.06 H (<0.03) % SARS-CoV-2 RNA (DAMON) (NEGATIVE) 09/06/20 09/06/20 09/06/20 Range/Units 07:30 07:30 07:33 WBC (3.0-10.3) x10-3/uL RBC (3.60-5.20) x10(6)uL Hgb (11.4-15.5) g/dL Hct (34.2-48.2) % MCV (76.7-100.5) fL MCH (23.9-33.9) pg MCHC (31.9-34.8) g/dL RDW (12.3-16.5) % Plt Count (151-488) x10(3)uL MPV (7.1-12.4) fL Neut % (Auto) (30.8-76.2) % Lymph % (Auto) (18.4-52.1) % [place] % (Auto) (4.4-15.7) % Eos % (Auto) (0.6-8.1) % Baso % (Auto) (0.2-1.5) % Neut # (Auto) (1.5-6.3) x10-3/uL Lymph # (Auto) (1.0-4.4) x10-3/uL [place] # (Auto) (0.3-1.0) x10-3/uL Eos # (Auto) (0.0-0.8) x10-3/uL Baso # (Auto) (0.0-0.1) x10-3/uL PT 9.6 (9.0-11.1) sec INR 0.88 L (1.00-1.24) APTT 22.7 L (24.4-33.2) SECONDS Sodium (135-145) mmol/L Potassium (3.5-5.3) mmol/L Chloride (100-110) mmol/L Carbon Dioxide (21-32) mmol/L BUN (7-18) mg/dL Creatinine (0.55-1.02) mg/dL Est Cr Clr Drug Dosing Estimated GFR (MDRD) (>60) BUN/Creatinine Ratio (9-20) Glucose (80-116) mg/dL Lactic Acid 5.4 H* (0.4-2.0) mmol/L Calcium (8.6-10.2) mg/dL Magnesium (1.8-2.5) mg/dL Total Bilirubin (0.1-1.3) mg/dL AST (5-25) IU/L ALT (12-36) U/L Alkaline Phosphatase (56-112) IU/L Troponin I (4.0-60.3) pg/mL Total Protein (6.0-8.0) g/dL Albumin (3.2-4.6) g/dL Globulin g/dL Albumin/Globulin Ratio Lipase (73-393) U/L Urine Color (YELLOW) Urine Appearance (CLEAR) Urine pH (5.0-6.5) Ur Specific Zachary (1.010-1.025) Urine Protein (NEGATIVE) mg/dL Urine Glucose (UA) (NORMAL) mg/dL Urine Ketones (NEGATIVE) mg/dL Urine Occult Blood (NEGATIVE) Urine Nitrite (NEGATIVE) Urine Bilirubin (NEGATIVE) Urine Urobilinogen (NEGATIVE) mg/dL Ur Leukocyte Esterase (NEGATIVE) Urine RBC (0-5) Urine WBC (0-5) Ur Squamous Epith Cells (NS,R,O) Urine Bacteria (NS) Ethyl Alcohol (<0.03) % SARS-CoV-2 RNA (DAMON) Negative (NEGATIVE) 09/06/20 Range/Units 07:40 WBC (3.0-10.3) x10-3/uL RBC (3.60-5.20) x10(6)uL Hgb (11.4-15.5) g/dL Hct (34.2-48.2) % MCV (76.7-100.5) fL MCH (23.9-33.9) pg MCHC (31.9-34.8) g/dL RDW (12.3-16.5) % Plt Count (151-488) x10(3)uL MPV (7.1-12.4) fL Neut % (Auto) (30.8-76.2) % Lymph % (Auto) (18.4-52.1) % [place] % (Auto) (4.4-15.7) % Eos % (Auto) (0.6-8.1) % Baso % (Auto) (0.2-1.5) % Neut # (Auto) (1.5-6.3) x10-3/uL Lymph # (Auto) (1.0-4.4) x10-3/uL [place] # (Auto) (0.3-1.0) x10-3/uL Eos # (Auto) (0.0-0.8) x10-3/uL Baso # (Auto) (0.0-0.1) x10-3/uL PT (9.0-11.1) sec INR (1.00-1.24) APTT (24.4-33.2) SECONDS Sodium (135-145) mmol/L Potassium (3.5-5.3) mmol/L Chloride (100-110) mmol/L Carbon Dioxide (21-32) mmol/L BUN (7-18) mg/dL Creatinine (0.55-1.02) mg/dL Est Cr Clr Drug Dosing Estimated GFR (MDRD) (>60) BUN/Creatinine Ratio (9-20) Glucose (80-116) mg/dL Lactic Acid (0.4-2.0) mmol/L Calcium (8.6-10.2) mg/dL Magnesium (1.8-2.5) mg/dL Total Bilirubin (0.1-1.3) mg/dL AST (5-25) IU/L ALT (12-36) U/L Alkaline Phosphatase (56-112) IU/L Troponin I (4.0-60.3) pg/mL Total Protein (6.0-8.0) g/dL Albumin (3.2-4.6) g/dL Globulin g/dL Albumin/Globulin Ratio Lipase (73-393) U/L Urine Color Yellow (YELLOW) Urine Appearance Clear (CLEAR) Urine pH 5.0 (5.0-6.5) Ur Specific Zachary 1.025 (1.010-1.025) Urine Protein Trace (NEGATIVE) mg/dL Urine Glucose (UA) Normal (NORMAL) mg/dL Urine Ketones 50 H (NEGATIVE) mg/dL Urine Occult Blood Trace (NEGATIVE) Urine Nitrite Negative (NEGATIVE) Urine Bilirubin Negative (NEGATIVE) Urine Urobilinogen Normal (NEGATIVE) mg/dL Ur Leukocyte Esterase Negative (NEGATIVE) Urine RBC 0-5 (0-5) Urine WBC 0-5 (0-5) Ur Squamous Epith Cells Occasional (NS,R,O) Urine Bacteria Rare H (NS) Ethyl Alcohol (<0.03) % SARS-CoV-2 RNA (DAMON) (NEGATIVE) Meds: Medications Discontinued Medications Generic Name Dose Route Start Last Admin Trade Name Satyaq PRN Reason Stop Dose Admin Diphenhydramine HCl 25 mg 09/06/20 07:13 09/06/20 07:35 Benadryl IVPUSH 09/06/20 07:14 25 mg ONETIME ONE Administration Sodium Chloride 1,000 mls @ 999 mls/hr 09/06/20 07:13 09/06/20 07:34 Normal Saline IV 09/06/20 08:13 999 mls/hr .BOLUS ONE Administration Sodium Chloride 1,000 mls @ 125 mls/hr 09/06/20 07:15 09/06/20 09:43 Normal Saline IV 125 mls/hr ASDIRECTED ROMEL Administration Sodium Chloride 1,000 mls @ 999 mls/hr 09/06/20 08:34 09/06/20 08:34 Normal Saline IV 09/06/20 09:34 999 mls/hr .BOLUS ONE Administration Lorazepam 1 mg 09/06/20 08:00 09/06/20 08:11 Ativan IVPUSH 09/06/20 08:01 1 mg ONETIME ONE Administration Prochlorperazine Edisylate 10 mg 09/06/20 07:13 09/06/20 07:35 Compazine IVPUSH 09/06/20 07:14 10 mg ONETIME ONE Administration - Re-Assessments/Exams Free Text/Narrative Re-Assessment/Exam: 09/06/20 08:00: Patient reports ongoing abdominal burning but reports that her nausea is improved. She has had no more vomiting. Her blood alcohol was 0.06 and she does seem somewhat tremulous. Her lactic acid is also 5.4 with a bicarbonate of 12. Her serum electrolytes are normal. I will continue ongoing fluid resuscitation with normal saline and I will also ordered Ativan 1 mg IV to be given. With the patient's protracted vomiting, metabolic acidosis and weakness, she will need admission for ongoing IV fluid therapy and treatment for alcohol withdrawal. There are no beds available at [facility] secondary to no staff available. Therefore the patient will need to be transferred to a facility with the services available for admission. I have also ordered a COVID 19 rapid test. 09/06/20 08:36: I discussed the need for admission to the hospital with the patient and I also discussed the need to transfer the patient because of no beds available at [facility] and she had directed me to discuss her case with the doctors at [facility] in [place]. I discussed the patient's case with Dr. Ashraf, hospitalist at [facility], and he has agreed to accept the patient in transfer. We will continue ongoing fluid resuscitation with normal saline and she will receive her second liter of normal saline as a bolus. We will continue close monitoring. The patient will need to be transferred to [facility] via ambulance for direct admission to [facility] with Dr. Ashraf accepting. It should be noted that the patient's rapid COVID was negative. Departure - Departure Time of Disposition: 10:05 Disposition: DC/Tfer to Acute Hospital 02 Clinical Impression: Metabolic acidosis, Lactic acidosis, Alcohol abuse Vomiting Qualifiers: Vomiting type: unspecified Vomiting Intractability: intractable Nausea presence: with nausea Qualified Code(s): R11.2 - Nausea with vomiting, unspecified Alcohol withdrawal syndrome Qualifiers: Complication of substance-induced condition: uncomplicated Qualified Code(s): F10.230 - Alcohol dependence with withdrawal, uncomplicated - Discharge Information Referrals: Aden Lemus MD [Primary Care Provider] - Forms: ED Department Discharge Sepsis Event Note (ED) - Evaluation Sepsis Screening Result: No Definite Risk - Focused Exam Vital Signs: Vital Signs Temp Pulse Resp BP Pulse Ox 09/06/20 09:45 107 H 18 119/89 99 09/06/20 07:42 103 H 20 147/61 H 100 09/06/20 06:21 36.6 C 103 H 22 H 162/78 H 100 - My Orders Last 24 Hours: My Active Orders 09/06/20 07:10 EKG 12 Lead [EK] Routine - Assessment/Plan Last 24 Hours: My Active Orders 09/06/20 07:10 EKG 12 Lead [EK] Routine
[2020-09-06] MEDS: Sodium Chloride 0.9% 1,000 ML IV ONE ×2 (07:34→08:34)
[2020-09-06] MEDS: Prochlorperazine 10 MG/2 ML SDV IVPUSH ONE (07:35)
[2020-09-06] MEDS: diphenhydrAMINE 50 MG/ML SDV IVPUSH ONE (07:35)
[2020-09-06] MEDS: LORazepam 2 MG/ML SDV IVPUSH ONE (08:11)
[2020-09-06] MEDS: Sodium Chloride 0.9% 1,000 ML IV SCH (09:43)
[2020-09-06 09:47] VITALS: BP 119/89; PULSE 107
== END 2020-09-06 10:05 ==
LOC: FB.ED 06:07
DX: F10.230 Alcohol dependence with withdrawal, uncomplicated (principal); R11.2 Nausea with vomiting, unspecified; E87.2 Acidosis; I10 Essential (primary) hypertension; K21.9 Gastro-esophageal reflux disease without esophagitis; M19.90 Unspecified osteoarthritis, unspecified site; E11.9 Type 2 diabetes mellitus without complications; Z20.822 Contact with and (suspected) exposure to COVID-19; Z88.2 Allergy status to sulfonamides; Z79.82 Long term (current) use of aspirin; Z79.84 Long term (current) use of oral hypoglycemic drugs; Z79.899 Other long term (current) drug therapy; Z72.0 Tobacco use
CPT/HCPCS: 36415; 80053; 80307; 81001; 83605; 83690; 83735; 84484; 85025; 85610; 85730; 93005; 96374; 96375; 99285; J0780; J1200; J2060; J7030; U0002; 93010

== ENCOUNTER 2020-09-16 22:31 | Emergency (ER) | payer MEDICARE ==
[2020-09-16] MEDS ORDERED: Ondansetron 4 MG/2 ML SDV IVPUSH STA (22:59)
[2020-09-16] MEDS ORDERED: Prochlorperazine 10 MG in Sodium Chloride 0.9% 50 ML IV STA (22:59)
[2020-09-16] MEDS: Sodium Chloride 0.9% 1,000 ML IV SCH (23:00)
[2020-09-16] MEDS ORDERED: LORazepam 2 MG/ML SDV IVPUSH STA (23:05)
[2020-09-16] MEDS ORDERED: Thiamine 100 MG in Sodium Chloride 0.9% 100 ML IV STA (23:45)
[2020-09-16] MEDS ORDERED: Sodium Chloride 0.9% 1,000 ML IV SCH (23:45)
--- NOTE | 2020-09-16 23:53 | EDM.PDOC ---
ED HPI GENERAL MEDICAL PROBLEM - General Chief Complaint: Gastrointestinal Problem Stated Complaint: VOMITING Time Seen by Provider: 09/16/20 22:40 Source of Information: Reports: Patient History Limitations: Reports: No Limitations - History of Present Illness INITIAL COMMENTS - FREE TEXT/NARRATIVE: Patient presented to the ED because of persistent nausea and vomiting since 2 pm today. She said she can't keep anything down.. There is associated abdominal pain after retching and vomiting. There is no diarrhea,constipation, fever chills, cough or cold symptoms. 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 - Related Data Allergies Allergy/AdvReac Type Severity Reaction Status Date / Time Sulfa (Sulfonamide Allergy Rash Verified 05/12/20 14:18 Antibiotics) Home Meds: Home Meds Multivitamin [Multi-Vitamin Daily] 1 tab PO DAILY 10/09/13 [History] Aspirin 81 mg PO DAILY 07/26/18 [History] Spironolactone [Aldactone] 25 mg PO DAILY 03/17/19 [History] Folic Acid 1 mg PO DAILY 05/03/19 [History] Calcium Carb, Citrate/Vit D3 [Citracal + D ER] 1 tab PO BID 12/20/19 [History] Mirtazapine [Remeron] 30 mg PO BEDTIME #30 tablet 01/01/20 [Rx] Thiamine [Vitamin B-1] 100 mg PO DAILY #30 tablet 01/01/20 [Rx] PARoxetine [Paxil] 20 mg PO DAILY 05/13/20 [History] Acamprosate [Campral] 333 mg PO BID 06/17/20 [History] Ondansetron [Zofran ODT] 4 mg PO Q6H PRN 06/17/20 [History] Pantoprazole Sodium [Protonix] 40 mg PO DAILY 06/17/20 [History] glipiZIDE [Glucotrol] 2.5 mg PO DAILY 06/17/20 [History] Sucralfate [Carafate] 1 gm PO QID #120 tablet 06/19/20 [Rx] Naproxen Sodium [Aleve] 220 mg PO Q12H PRN 07/08/20 [History] Rosuvastatin [Crestor] 10 mg PO DAILY 07/08/20 [History] metFORMIN [Glucophage] 500 mg PO BIDMEALS 07/08/20 [History] Acetaminophen [Tylenol] 650 mg PO Q4H PRN tablet 07/10/20 [Rx] Potassium Chloride [Klor-Con M20] 20 meq PO DAILY #30 tab.er 07/10/20 [Rx] Furosemide 40 mg PO BID 09/06/20 [History] Magnesium 200 mg PO DAILY 09/06/20 [History] Sertraline [Zoloft] 100 mg PO DAILY 09/06/20 [History] Ondansetron [Zofran ODT] 4 mg PO Q4H PRN #7 tab.dis 09/17/20 [Rx] Past Medical History HEENT History: Reports: Cataract, Impaired Vision Cardiovascular History: Reports: Hypertension Other Cardiovascular History: States has irregular HR at times. Respiratory History: Reports: Bronchitis, Recurrent, Pneumonia, Recurrent Other Respiratory History: Tobacco use. Gastrointestinal History: Reports: GERD, Pancreatitis, PUD Other Gastrointestinal History: "Prolapsed colon". Genitourinary History: Reports: Urinary Incontinence COMPUTER SPECIALIST History: Reports: Other COMPUTER SPECIALIST History: G0 Musculoskeletal History: Reports: Arthritis, Osteoporosis, Other (See Below) Other Musculoskeletal History: Movement disorder. Ataxia. Neurological History: Reports: Other (See Below) Other Neuro History: Episodes of DT's. Movement disorder. Psychiatric History: Reports: Addiction, Anxiety, Depression, Other (See Below) Other Psychiatric History: Drug and alcohol addiction. Endocrine/Metabolic History: Reports: Diabetes, Type II, Osteoporosis Hematologic History: Reports: Anemia, Blood Transfusion(s), Other (See Below) Other Hematologic History: Leukopenia, thrombocytopenia. Immunologic History: Reports: None Oncologic (Cancer) History: Reports: None Dermatologic History: Reports: None - Infectious Disease History Infectious Disease History: Reports: Chicken Pox, Measles, Mumps - Past Surgical History Cardiovascular Surgical History: Reports: Other (See Below) (Vascular access surgery with port) Social & Family History - Family History Family Medical History: No Pertinent Family History - Caffeine Use Caffeine Use: Reports: Coffee Other Caffeine Use: 2-3 CUPS DAILY - Living Situation & Occupation Living situation: Reports: Alone Occupation: Disabled ED ROS GENERAL - Review of Systems Review Of Systems: See Below Constitutional: Reports: No Symptoms HEENT: Reports: No Symptoms Respiratory: Reports: No Symptoms Cardiovascular: Reports: No Symptoms Endocrine: Reports: No Symptoms GI/Abdominal: Reports: Abdominal Pain, Nausea, Vomiting : Reports: No Symptoms Musculoskeletal: Reports: No Symptoms Skin: Reports: No Symptoms Neurological: Reports: No Symptoms Psychiatric: Reports: Anxiety Hematologic/Lymphatic: Reports: Anemia ED EXAM, GI/ABD - Physical Exam Exam: See Below Exam Limited By: No Limitations General Appearance: Alert, No Apparent Distress Ears: Normal External Exam, Normal Canal, Hearing Grossly Normal Nose: Normal Inspection, Normal Mucosa, No Blood Throat/Mouth: Normal Inspection, Normal Lips Head: Atraumatic, Normocephalic Neck: Normal Inspection, Supple, Non-Tender, Full Range of Motion Respiratory/Chest: No Respiratory Distress, Lungs Clear, Normal Breath Sounds, No Accessory Muscle Use, Chest Non-Tender Cardiovascular: Normal Peripheral Pulses, Regular Rate, Rhythm, No Edema, No Gallop, No JVD, No Murmur GI/Abdominal Exam: Normal Bowel Sounds, Soft, Non-Tender, No Organomegaly Back Exam: Normal Inspection, Full Range of Motion Extremities: Normal Inspection, Normal Range of Motion, Non-Tender Neurological: Alert, CN II-XII Intact Psychiatric: Anxious Course - Vital Signs Text/Narrative:: Labs/EKG/CXR results was discussed with patient NS 1 L bolus x 2 Thiamine 100 mg IV Zofran 4 mg IV x1 Compazine 10 mg IV x1 Ativan 1 mg IV x1 - Orders/Labs/Meds Orders: Active Orders 24 hr Category Date Time Status EKG Documentation Completion [RC] ASDIRECTED Care 09/16/20 22:58 Ordered Chest 1V Frontal [CR] Stat Exams 09/16/20 22:57 Ordered DRUG SCREEN, URINE ALERE [URCHEM] Stat Lab 09/16/20 22:57 Ordered UA W/MICROSCOPIC [URIN] Stat Lab 09/16/20 22:57 Ordered Sodium Chloride 0.9% [Normal Saline] 1,000 ml Med 09/16/20 23:00 Ordered IV ASDIRECTED Sodium Chloride 0.9% [Normal Saline] 1,000 ml Med 09/16/20 23:45 Ordered IV ASDIRECTED EKG 12 Lead [EK] Routine Ther 09/16/20 22:57 Ordered Medication Orders Sodium Chloride (Normal Saline) 1,000 mls @ 999 mls/hr IV ASDIRECTED ORMEL Last Admin: 09/16/20 23:00 Dose: 999 mls/hr Documented by: BRENLOR Sodium Chloride (Normal Saline) 1,000 mls @ 999 mls/hr IV ASDIRECTED [facility] Labs: Laboratory Tests 09/16/20 09/16/20 09/16/20 Range/Units 23:10 23:10 23:10 WBC 5.4 (3.0-10.3) x10-3/uL RBC 3.99 (3.60-5.20) x10(6)uL Hgb 10.6 L (11.4-15.5) g/dL Hct 34.9 (34.2-48.2) % MCV 87.4 (76.7-100.5) fL MCH 26.5 (23.9-33.9) pg MCHC 30.4 L (31.9-34.8) g/dL RDW 20.4 H (12.3-16.5) % Plt Count 686 H (151-488) x10(3)uL MPV 7.6 (7.1-12.4) fL Neut % (Auto) 58.2 (30.8-76.2) % Lymph % (Auto) 26.3 (18.4-52.1) % [place] % (Auto) 9.9 (4.4-15.7) % Eos % (Auto) 0.0 L (0.6-8.1) % Baso % (Auto) 5.6 H (0.2-1.5) % Neut # (Auto) 3.1 (1.5-6.3) x10-3/uL Lymph # (Auto) 1.4 (1.0-4.4) x10-3/uL [place] # (Auto) 0.5 (0.3-1.0) x10-3/uL Eos # (Auto) 0.0 (0.0-0.8) x10-3/uL Baso # (Auto) 0.3 H (0.0-0.1) x10-3/uL Sodium 140 (135-145) mmol/L Potassium 3.5 (3.5-5.3) mmol/L Chloride 92 L D (100-110) mmol/L Carbon Dioxide 12 L (21-32) mmol/L BUN 29 H D (7-18) mg/dL Creatinine 1.1 H (0.55-1.02) mg/dL Est Cr Clr Drug Dosing TNP Estimated GFR (MDRD) 50 L (>60) BUN/Creatinine Ratio 26.4 H (9-20) Glucose 69 L (80-116) mg/dL Calcium 8.9 (8.6-10.2) mg/dL Total Bilirubin 0.4 (0.1-1.3) mg/dL AST 66 H D (5-25) IU/L ALT 38 H D (12-36) U/L Alkaline Phosphatase 108 (56-112) IU/L Troponin I 6.4 (4.0-60.3) pg/mL Total Protein 8.1 H (6.0-8.0) g/dL Albumin 4.2 (3.2-4.6) g/dL Globulin 3.9 g/dL Albumin/Globulin Ratio 1.1 Amylase 93 (25-115) U/L Lipase 83 (73-393) U/L Ethyl Alcohol 0.18 H* (<0.03) % Meds: Medications Generic Name Dose Route Start Last Admin Trade Name Freq PRN Reason Stop Dose Admin Sodium Chloride 1,000 mls @ 999 mls/hr 09/16/20 23:00 09/16/20 23:00 Normal Saline IV 999 mls/hr ASDIRECTED ROMEL Administration Sodium Chloride 1,000 mls @ 999 mls/hr 09/16/20 23:45 Normal Saline IV ASDIRECTED ROMEL Discontinued Medications Generic Name Dose Route Start Last Admin Trade Name Freq PRN Reason Stop Dose Admin Prochlorperazine Edisylate 10 52 mls @ 150 mls/hr 09/16/20 22:59 09/16/20 23:13 mg/ Sodium Chloride IV 09/16/20 23:19 150 mls/hr NOW STA Administration Thiamine HCl 100 mg/ Sodium 101 mls @ 202 mls/hr 09/16/20 23:45 Chloride IV 09/16/20 23:46 NOW STA Lorazepam 1 mg 09/16/20 23:05 09/16/20 23:18 Ativan IVPUSH 09/16/20 23:06 1 mg NOW STA Administration Ondansetron HCl 4 mg 09/16/20 22:59 09/16/20 23:10 Zofran IVPUSH 09/16/20 23:00 4 mg NOW STA Administration Departure - Departure Time of Disposition: 01:30 Disposition: Home, Self-Care 01 Condition: Good Clinical Impression: Cyclical vomiting, H/O ETOH abuse, Drug abuse Alcohol intoxication Qualifiers: Complication of substance-induced condition: uncomplicated Qualified Code(s): F10.920 - Alcohol use, unspecified with intoxication, uncomplicated - Discharge Information Prescriptions: Ondansetron [Zofran ODT] 4 mg PO Q4H PRN #7 tab.dis PRN Reason: Nausea Instructions: Alcohol Use Disorder, Alcohol Intoxication, [id number], Cyclic Vomiting Syndrome, Adult, Dehydration, Elderly, [id number] Referrals: PCP,None [Primary Care Provider] - Forms: ED Department Discharge Additional Instructions: Please read discharge instructions on alcohol abuse and intoxication, cyclic vomiting Quit drinking alcohol before you end up having live damage and multi organ failure Zofran ODT 4 mg every 4 hours as needed for nausea/vomiting Take multivitamins 1 tablet daily Follow up as needed - My Orders Last 24 Hours: My Active Orders 09/16/20 22:57 Chest 1V Frontal [CR] Stat DRUG SCREEN, URINE ALERE [URCHEM] Stat UA W/MICROSCOPIC [URIN] Stat EKG 12 Lead [EK] Routine 09/16/20 22:58 EKG Documentation Completion [RC] ASDIRECTED 09/16/20 23:00 Sodium Chloride 0.9% [Normal Saline] 1,000 ml IV ASDIRECTED 09/16/20 23:45 Sodium Chloride 0.9% [Normal Saline] 1,000 ml IV ASDIRECTED - Assessment/Plan Last 24 Hours: My Active Orders 09/16/20 22:57 Chest 1V Frontal [CR] Stat DRUG SCREEN, URINE ALERE [URCHEM] Stat UA W/MICROSCOPIC [URIN] Stat EKG 12 Lead [EK] Routine 09/16/20 22:58 EKG Documentation Completion [RC] ASDIRECTED 09/16/20 23:00 Sodium Chloride 0.9% [Normal Saline] 1,000 ml IV ASDIRECTED 09/16/20 23:45 Sodium Chloride 0.9% [Normal Saline] 1,000 ml IV ASDIRECTED
[2020-09-17] MEDS: Sodium Chloride 0.9% 1,000 ML IV SCH (00:58)
[2020-09-17 02:50] VITALS: BP 154/68; PULSE 106
--- NOTE | 2020-09-17 11:03 | CR ---
INDICATION: Persistent nausea and vomiting. CHEST, ONE VIEW: An AP upright portable view of the chest 09/17/20 was compared with 07/06/20 and 02/12/20. The heart remains normal in size and shape. There is now noted a Shahram-Cath with good position from the left subclavian area. The aorta is calcified in the arch area minimally. Linear densities at the lower lung mora are compatible with fibrosis and/or minimal linear atelectasis. A definite consolidating pneumonia or effusion was not identified. No evidence of CHF was seen. IMPRESSION: No definite acute process but difficult to exclude areas of linear atelectasis and possibly minimal patchy bronchopneumonia at the lung bases/lower lung mora. MTDD
== END 2020-09-17 02:30 | disposition home or self-care (01) ==
LOC: FB.ED 22:31
DX: F10.120 Alcohol abuse with intoxication, uncomplicated (principal); R11.15 Cyclical vomiting syndrome unrelated to migraine; F19.10 Other psychoactive substance abuse, uncomplicated; I10 Essential (primary) hypertension; K21.9 Gastro-esophageal reflux disease without esophagitis; M19.90 Unspecified osteoarthritis, unspecified site; E11.9 Type 2 diabetes mellitus without complications; D64.9 Anemia, unspecified; Z72.0 Tobacco use; Z88.2 Allergy status to sulfonamides; Z79.82 Long term (current) use of aspirin; Z79.899 Other long term (current) drug therapy
CPT/HCPCS: 36415; 71045; 80053; 80305; 80307; 81001; 82150; 83690; 84484; 85025; 93005; 96365; 96367; 96375; 99285; J0780; J1642; J2060; J2405; J3411; J7030; 99284